=== PATIENT | female | born 1980 | race Caucasian/White ===

== ENCOUNTER 2023-03-02 10:18 | Outpatient (AMB) | payer OTHER, SELFPAY ==
--- NOTE | 2023-03-02 10:20 | A.OFFPC_ITS ---
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 Teletray Operator: Present Accompanied by: Mother Allergies nitroglycerin [NITROGLYCERIN] Allergy (Mild, Verified 03/02/23 10:44) HIVES hydromorphone [Dilaudid] Allergy (Unknown, Verified 03/02/23 10:44) anaphylaxis From DILAUDID Allergy (Severe, Uncoded 12/12/19 15:54) ANAPHYLAXIS dilaudi Allergy (Unknown, Uncoded 11/05/13 00:00) throat swelling nitroglycerine Allergy (Unknown, Uncoded 11/05/13 00:00) hives Medication List - Last Reconciled 03/02/23 by LUISANA Hart aspirin 1 tab PO DAILY bumetanide 2 mg PO DAILY chlorhexidine gluconate 0.12% 15 mL PO BID magnesium oxide 400 mg PO DAILY potassium chloride (Klor-Con) 40 mEq PO DAILY sotalol 80 mg PO BID warfarin mg PO Tobacco use date assessed: 03/02/23 Dental Screening Dental Screen Date: 03/02/23 Did you have a dental visit in the last 12 months?: Yes Did you have a dental problem in the last 6 months where you did not have access to dental care?: No Was dental information given to patient?: Patient has dentist HPI HPI Comments History of Present Illness Details 42-year-old new patient presents today t o establish care. Past medical history significant for transposition of great arteries, congenital heart disease, s/p cardiac surgeries x4. Patient reports after multiple heart surgeries she developed heart failure, cardiac thrombus on long-term an ticoagulation with Coumadin. Patient reports follows with [facility] in [place]. States she is going to have her INR level checked today. Patient has cardiac defibrillator in place. Patient reports frequent hospital admissions due to significant cardiac history. Patient reports currently on heart transplant list with [facility]; Andrez Manrique is patient's talent coordinator. Patient also reports prior to being on heart transplant list she is also followed by Dr. Kahn [facility] Cardiology and sandwich peddler Andrez Ko. Has not had PCP in over 5 years but states she was a previous patient of [facility]. Patient reports she was experiencing chest heaviness last night, states she does not feel it is anything to worry about. Patient states she reported it to Dr. Manrique office and they spoke with her this am and discussed EKG. Patient advised to call office back to ensure they order EKG as this is my 1st time meeting patient and have no previous EKGs to compare too. Patient verbalized understanding and states she will call Dr. Manrique office back to place order.Patient sign a release in office today to obtain medical records. [facility] Medical History (Updated 03/02/23 @ 11:35 by LUISANA Hart) H/O cardiac murmur Cardiac defibrillator in place Congenital heart disease Transposition great arteries Surgical History (Updated 03/02/23 @ 11:28 by LUISANA Hart) S/P lobectomy of lung H/O right breast implant Hx of cholecystectomy H/O heart surgery Social History Housing: Apartment Patient Tobacco Use Status: Never used Tobacco e-Cigarette/Vaping Use: Never Used service: No Current occupational status: unemployed Cognitive needs: No Hearing needs: No Vision needs: Yes Questionnaire PHQ-9 Over the last 2 weeks, how often have you been bothered by any of the following problems? 1. Little interest or pleasure in doing things: not at all 2. Feeling down, depressed, or hopeless: not at all 3. Trouble falling or staying asleep, or sleeping too much: not at all 4. Feeling tired or having little energy: not at all 5. Poor appetite or overeating: not at all 6. Feeling bad about yourself - or that you are a failure or have let yourself or your family down: not at all 7. Trouble concentrating on things, such as reading the newspaper or watching television: not at all 8. Moving or speaking so slowly that other people could have noticed. Or the opposite - being so fidgety or restless that you have been moving around a lot more than usual: not at all 9. Thoughts that you would be better off or of hurting yourself in some way: not at all Total score: 0 26352 - PHQ-9 Billing: Yes Source: Developed by Drs. Wyatt Baeza, Mykel Salinas and colleagues, with an educational cassidy from [employer]. Thrive Questionnaire I am a: Patient What is your living situation today?: I have a steady place to live Within the past 12 months, did the food you bought not last and you didn't have the money to get more?: Never true Within the past 12 months, did you worry whether your food would run out before you got money to buy more?: Never true Do you have trouble paying for medicines?: No Do you have trouble getting transportation to medical appointments?: No Do you have trouble paying your heating and electricity bill?: No Do you have trouble taking care of your child, family member or friend?: No Do you have trouble with day-to-day activities such as bathing, preparing meals, shopping, managing finances, etc.?: No Are you currently unemployed and looking for a job?: No Are you interested in more education?: No Please select the resources that you would like help with: None Currently or been in a relationship where the following occur: no concerns reported AUDIT C Alcohol Use Questionnaire (AUDIT-C) 1. How often do you have a drink containing alcohol?: Never 3. How often do you have six or more drinks on one occasion?: Never Total Score: 0 JOHN-7 AMB Questionnaire JOHN-7 Date JOHN - 7 assessed: 03/02/23 Feeling nervous, anxious, or on edge: 0 = Not at all Not being able to stop or control worryin = Not at all Worrying too much about different things: 0 = Not at all Trouble relaxin = Not at all Being so restless that it is hard to sit still: 0 = Not at all Becoming easily annoyed or irritable: 0 = Not at all Feeling afraid as if something awful might happen: 0 = Not at all Total JOHN-7 score (0-4 normal; 5-9 mild; 10-14 moderate; 15-21 severe): 0 Source: Developed by Drs. Wyatt Baeza, Mykel Salinas and colleagues, with an educational cassidy from [employer]. JOHN-7 Assessment Billing JOHN-7 Assessment Tool: JOHN-7 Assessment 84443 Review of Systems Const Denies chills, Denies fatigue, Denies fever(s) and Denies poor appetite Eyes Denies no additional complaints ENT Reports Normal hearing present Card Denies chest pain, Denies syncope, Denies rapid heart rate and Denies dyspnea Resp Denies cough and Denies dyspnea GI Denies change in stool character, Denies constipation, Denies diarrhea, Denies nausea and Denies vomiting Denies urinary frequency, Denies dysuria and Denies urinary urgency Neuro Reports Normal hearing present, Denies confusion and Denies syncope Psych Denies confusion Endo Denies fatigue Physical exam (Primary Care) Vital Signs: Last Vital Signs Pulse 84 03/02/23 10:22 BP 90/80 03/02/23 10:22 Pulse Ox 99 03/02/23 10:22 Oxygen Delivery Method Room Air 03/02/23 10:22 BMI result Body Mass Index 26.2 Tobacco/Smoking Status: Tobacco use Status Tobacco use date assessed 03/02/23 03/02/23 10:32 Patient Tobacco Use Status Never used Tobacco 03/02/23 10:32 e-Cigarette/Vaping Use Never Used 03/02/23 10:32 PHQ-9: PHQ-9 Score PHQ-9: Total score 0 03/02/23 10:42 Currently or been in a relationship where the following occur: no concerns reported Const General: No confusion Orientation/consciousness: No confusion HENMT Head: Yes normocephalic and Yes atraumatic Eyes Conjunctivae: conjunctivae normal Chest Chest palpation & inspection: normal inspection of the chest Resp Effort & Inspection: normal respiratory effort Auscultation: clear to auscultation bilaterally, no crackles, no rhonchi and no wheezes Cardio Rate: regular rate Rhythm: regular rhythm Heart sounds: Murmur heart sound present GI Inspection: Yes normal to inspection General: Yes no CVA tenderness Back/Spine/Pelvis Back: no CVA tenderness Neuro General: No confusion Cranial nerves: Yes Normal hearing present Extrem General: No edema Assessment and Plan Assessment & Plan (1) Thrombus: Comment: Cardiac Thrombus on Coumadin Code(s): I82.90 - Acute embolism and thrombosis of unspecified vein Plan: Continue on Coumadin. Continue to follow with [facility]in Clinic in [place]. (2) Heart failure: Code(s): I50.9 - Heart failure, unspecified Plan: Continue on Bumex 2 mg daily. Continue to follow with Cardiology team/heart transplant team Plan Follow-up in 3 months for physical exam. Orders: Orders Lipid Panel Today Z13.220 - Encounter for screening for lipoid disorders TSH reflex Free T4 Today Z13.29 - Encounter for screening for other suspected endocrine disorder Complete Blood Count Auto Diff Today Z13.0 - Encounter for screening for diseases of the blood and blood-forming organs and certain disorders involving the immune mechanism Comprehensive [place]. Panel Fast Today I50.9 - Heart failure, unspecified Coding Level of Care Code New Pt Level 4 (04067) Diagnoses Thrombus I82.90 Heart failure I50.9 Additional Codes JOHN-7 Assessment Billing - JOHN-7 Assessment Tool: JOHN-7 Assessment [id number] ([id number])
[2023-03-02 10:22] VITALS: BP 90/80; PULSE 84; O2SAT 99; BMI 26.2
== END 2023-03-02 11:05 | disposition home or self-care (01) ==
PROVIDERS: PCP Nurse Practitioner Family; Visit Provider Nurse Practitioner Family
DX: I82.90 Acute embolism and thrombosis of unspecified vein (principal); I50.9 Heart failure, unspecified
CPT/HCPCS: 99204

== ENCOUNTER 2023-05-17 08:25 | Outpatient (AMB) | payer OTHER, SELFPAY ==
[2023-05-17 08:31] VITALS: BP 90/58; PULSE 60; O2SAT 100; BMI 26.2
--- NOTE | 2023-05-17 08:31 | MHC.PC.OV ---
Vital Signs 05/17/23 08:31 Height 5 ft 2.99 in Weight 67.154 kg BMI 26.2 BP 90/58 L Blood Pressure Location Lt brachial Position Sitting Pulse 60 Pulse Source Pulse Oximeter Pulse Oximetry (%) 100 Oxygen Delivery Method Room Air Intake Visit Reasons: [facility] 03/28 -04/09 Intake Note: Patient is here for hospital discharge follow up. Patient was discharged from [facility] due to heart transplant on 03/28/2023 -04/09/2023. 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 Allergies nitroglycerin [NITROGLYCERIN] Allergy (Mild, Verified 05/17/23 08:32) HIVES hydromorphone [Dilaudid] Allergy (Unknown, Verified 05/17/23 08:32) anaphylaxis From DILAUDID Allergy (Severe, Uncoded 05/17/23 08:32) ANAPHYLAXIS dilaudi Allergy (Unknown, Uncoded 05/17/23 08:32) throat swelling nitroglycerine Allergy (Unknown, Uncoded 05/17/23 08:32) hives Tobacco use date assessed: 05/17/23 Dental Screening Dental Screen Date: 05/17/23 HPI HPI Comments History of Present Illness Details 42F w/ D-loop TGA, subpulmonic and valvular pulmonary stenosis, and subaortic VSD s/p multiple surgical repairs c/b atrial arrhythmias, nonsustained VT, severe LV dysfunction with ICD placement (07/2018) and HFrEF (EF 10%) presents to the office today for hospital discharge follow up. Discharge medications reviewed and reconciled. She was admitted to [facility] due to acute decompensated heart failure with significant volume overload and BNP 2941. She was diuresed with iv bumex and reached euvolemia. She was noted to be hypotensive without evidence of poor perfusion. At baseline SBP in the 80s-90s. Follows with [facility] currently on transplant list (cardiology tranplant surgeron: Dr. Schulz) and was seen as part of Palliative Care Consult. She was discharged on bumex 4mg qd, spironolactone 25mg qd, sotalol 80mg bid, and jardiance 10mg qd as well as 40meq potassium BID due to hypokalemia. Continued on warfarin which she was started on for left ventricular thrombus in 01/2023. She was recommended for cardiac rehab at the discretion of her primary cardiology team, Dr. Kahn at [facility]. Today she reports a chronic solomon, due to end stage heart failure, but reports no worsening from baseline. Has intermittent palpitations but denies any firing of her ICD. Reports palpitations are brief. No chest pain. She does weigh herself daily and retricts both fluids and sodium. She is hoping to get a PLANISHER to assist with ADL's and has had an intake appt. Looking to establish care with new PCP, Dr. Christina, for further assistance with this process and has upcoming appt. INR's are managed by [facility] and last INR was therapeutic at 2.0. She is here today with her sister who also assists patient with care. [facility] Medical History (Updated 05/29/23 @ 11:39 by PRISCILLA Mendez) Left ventricular thrombus H/O cardiac murmur Cardiac defibrillator in place Congenital heart disease Transposition great arteries Surgical History S/P lobectomy of lung H/O right breast implant Hx of cholecystectomy H/O heart surgery Social History Housing: Apartment Patient Tobacco Use Status: Never used Tobacco e-Cigarette/Vaping Use: Never Used service: No Current occupational status: unemployed Cognitive needs: No Hearing needs: No Vision needs: Yes Questionnaire Thrive Questionnaire Date Thrive assessed: 05/17/23 AUDIT C Alcohol Use Questionnaire (AUDIT-C) 1. How often do you have a drink containing alcohol?: Never 3. How often do you have six or more drinks on one occasion?: Never Total Score: 0 JOHN-7 AMB Questionnaire JOHN-7 Date JOHN - 7 assessed: 03/02/23 Source: Developed by Drs. Wyatt Baeza, Yary Celis, Mykel Ryan and colleagues, with an educational cassidy from [employer]. Review of Systems Const All systems reviewed & are unremarkable except as noted in HPI and below Physical exam (Primary Care) Vital Signs: Last Vital Signs Pulse 60 05/17/23 08:31 BP 90/58 L 05/17/23 08:31 Pulse Ox 100 05/17/23 08:31 Oxygen Delivery Method Room Air 05/17/23 08:31 BMI result Body Mass Index 26.2 Tobacco/Smoking Status: Tobacco use Status Tobacco use date assessed 05/17/23 05/17/23 08:36 Patient Tobacco Use Status Never used Tobacco 05/17/23 08:36 e-Cigarette/Vaping Use Never Used 05/17/23 08:36 Thrive Assessment: Date of Thrive Assessment Date Thrive assessed 05/17/23 05/17/23 08:36 Const Other: Constitutional - Awake and Alert, No apparent distress Eyes - PERRLA, EOMI Cardiovascular - S1S2, RRR, mechanical click ausculated, 2+ ble edema Respiratory - Normal lung expansion, Normal respiratory effort, No respiratory distress, CTA bilaterally Extremities - no calf tenderness bilaterally, no swelling Skin - Warm/Dry Neurological - Alert & oriented x3 Psychological - Appropriate affect Results Reviewed Results Reviewed: extensive review of [facility]'s reports including admission note, cardiology discharge summary, [facility]'s consult report, [facility] cardiology report, cxr report, bnp, cbc, bmp Assessment and Plan Assessment & Plan (1) End stage heart failure: Code(s): I50.84 - End stage heart failure Plan: Stable symptomatically, clincially euvolemic on exam. SOLOMON is baseline without acute worsening. Continue alternating bumex 4mg and 6mg every other day. Continue spironolactone 25mg and jardiance 10mg daily. Keep [facility] cardiology appt 05/23 as scheduled and discuss cardiac rehab further. Continue with fluid restrictions no more than 1.2 L per day and sodium restrictions of no more than 2g per day. Keep appt with PCP as scheduled to discuss PLANISHER assistance further s/p intake appt for assistance with ADL's. (2) Left ventricular thrombus: Code(s): I51.3 - Intracardiac thrombosis, not elsewhere classified Plan: Continue coumadin. INR therapeutic at 2.0, continue following with [facility] coumad[facility]. Medications: New chlorhexidine gluconate 0.12% 15 mL PO BID 473 mL 0RF Coding Level of Care Code Tele Est Pt Level 5 (65190) Diagnoses End stage heart failure I50.84 Left ventricular thrombus I51.3 Time Spent (min) 50 Comment time reviewing above, exam with pt/sister, and documentation time
== END 2023-05-17 09:04 | disposition home or self-care (01) ==
PROVIDERS: PCP Nurse Practitioner Family; Visit Provider Physician Assistant
DX: I50.84 End stage heart failure (principal); I51.3 Intracardiac thrombosis, not elsewhere classified
CPT/HCPCS: 99215

== ENCOUNTER 2024-06-13 15:23 | Outpatient (AMB) | payer OTHER, SELFPAY ==
--- NOTE | 2024-06-13 15:25 | MHC.PC.OV ---
Vital Signs 06/13/24 15:38 Height 5 ft 2 in Weight 142 lb 6.698 oz BMI 26.0 BP 130/74 Blood Pressure Location Lt brachial Position Sitting Pulse 93 Pulse Source Pulse Oximeter Pulse Oximetry (%) 97 Oxygen Delivery Method Room Air Intake Visit Reasons: CHANDANA Hicks/ was in hospital for 2 years Intake Note: Patient is here today for CHANDANA from [facility]. Motor Vehicle Emissions Inspector Required: No Irrigation Flume Layer: Present Accompanied by: Sister Allergies nitroglycerin [NITROGLYCERIN] Allergy (Mild, Verified 06/13/24 15:51) HIVES hydromorphone [Dilaudid] Allergy (Unknown, Verified 06/13/24 15:51) anaphylaxis From DILAUDID Allergy (Severe, Uncoded 06/13/24 15:51) ANAPHYLAXIS dilaudi Allergy (Unknown, Uncoded 06/13/24 15:51) throat swelling nitroglycerine Allergy (Unknown, Uncoded 06/13/24 15:51) hives Medication List - Last Reconciled 06/13/24 by Petty Almeida PA-C [id number] 6,000-19,000 -30,000 unit (Creon) caps PO mirtazapine 7.5 mg PO BEDTIME mycophenolate sodium 360 mg PO BID prednisone 5 mg PO DAILY sevelamer carbonate 800 mg PO TID tacrolimus 4 mg PO BID trazodone 25 mg PO BEDTIME PRN Tobacco use date assessed: 06/13/24 Dental Screening Dental Screen Date: 06/13/24 Did you have a dental visit in the last 12 months?: Yes Did you have a dental problem in the last 6 months where you did not have access to dental care?: No Was dental information given to patient?: Patient has dentist HPI CHANDANA Fabiola/ was in hospital for 2 years HPI Details 43-year-old female coming to the office for transfer of care, last seen 04/2023. 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 Patient currently on tacro for immunosuppression and following with [facility]. She was previously on hemodialysis which was discontinued 05/06/2024 to remain on Renvela TID for hyperphosphatemia. She was admitted from 01/2024-02/2024 4 abdominal superinfection requiring 3 IR drains and antibiotics discontinued 03/16/2024. MRCP demonstrated acute interstitial edematous pancreatitis. GI to perform ERCP in 6-8 weeks for resolution of current episode, abdominal drains removed 04/05/2024, pravastatin was held and following with [facility] next appointment 06/19/2024. Patient also had bilateral pleural effusions last drained 04/08/2024 continue with surveillance x-rays next 05/05/2024 and follow up appointment with thoracic 05/23/2024. She reports previous hematoma and infection post-heart transplant that necessitated additional surgeries for bleeding control. The patient experiences amenorrhea, raising concerns about early menopause. She currently manages anxiety and sleep disturbances using mirtazapine intermittently. The patient has experienced bilateral lower extremity edema linked to steroid use, previous dialysis, and kidney disease. Recent renal function showed improvements, and she remains under monitoring. She is currently ambulating with a walker and is working with PT/OT but is due to be discharged from OT soon. She is looking to have FEDERAL MEDIATION COMMISSIONER services in place she does have difficulty with daily tasks due to her prolonged hospitalization. Upcoming appointments: Cardiology/Transplant team 06/20/2024 R heart cath in July Kidney specialist - saw last week 06/03/2024 kidneys have been improving and plan to have blood work done. GI specialist - video visit 06/19/2024 Thoracic team no longer having drains - discharged [facility] Medical History (Updated 06/14/24 @ 08:24 by Petty Almeida PA-C) Bilateral pleural effusion Left ventricular thrombus H/O cardiac murmur Cardiac defibrillator in place Congenital heart disease Transposition great arteries Surgical History (Updated 06/13/24 @ 15:52 by RADHA North) History of heart transplant S/P lobectomy of lung H/O right breast implant Hx of cholecystectomy H/O heart surgery Social History Housing: Apartment Alcohol intake: never Patient Tobacco Use Status: Never used Tobacco e-Cigarette/Vaping Use: Never Used service: No Current occupational status: unemployed Cognitive needs: Yes (walker, wheelchair) Hearing needs: No Vision needs: Yes Questionnaire PHQ-9 Over the last 2 weeks, how often have you been bothered by any of the following problems? 1. Little interest or pleasure in doing things: not at all 2. Feeling down, depressed, or hopeless: not at all 3. Trouble falling or staying asleep, or sleeping too much: not at all 4. Feeling tired or having little energy: not at all 5. Poor appetite or overeating: not at all 6. Feeling bad about yourself - or that you are a failure or have let yourself or your family down: not at all 7. Trouble concentrating on things, such as reading the newspaper or watching television: not at all 8. Moving or speaking so slowly that other people could have noticed. Or the opposite - being so fidgety or restless that you have been moving around a lot more than usual: not at all 9. Thoughts that you would be better off or of hurting yourself in some way: not at all Total score: 0 Depression Screening Interpretation: Negative Depression Screening Done: Yes Source: Developed by Drs. Wyatt Baeza, Yary Celis, Mykel Ryan and colleagues, with an educational cassidy from [email or web address]. Thrive Questionnaire Date Thrive assessed: 06/13/24 I am a: Patient What is your living situation today?: I have a steady place to live Within the past 12 months, did the food you bought not last and you didn't have the money to get more?: Never true Within the past 12 months, did you worry whether your food would run out before you got money to buy more?: Never true Do you have trouble paying for medicines?: No Do you have trouble getting transportation to medical appointments?: No Do you have trouble paying your heating and electricity bill?: No Do you have trouble taking care of your child, family member or friend?: No Do you have trouble with day-to-day activities such as bathing, preparing meals, shopping, managing finances, etc.?: No Are you currently unemployed and looking for a job?: No Are you interested in more education?: No Please select the resources that you would like help with: None Currently or been in a relationship where the following occur: No concerns reported THRIVE Score: 0 AUDIT C Alcohol Use Questionnaire (AUDIT-C) 1. How often do you have a drink containing alcohol?: Never Total Score: 0 JOHN-7 AMB Questionnaire JOHN-7 Date JOHN - 7 assessed: 06/13/24 Feeling nervous, anxious, or on edge: 3 = Nearly every day Not being able to stop or control worryin = Nearly every day Worrying too much about different things: 3 = Nearly every day Trouble relaxin = Several days Being so restless that it is hard to sit still: 0 = Not at all Becoming easily annoyed or irritable: 0 = Not at all Feeling afraid as if something awful might happen: 1 = Several days Total JOHN-7 score (0-4 normal; 5-9 mild; 10-14 moderate; 15-21 severe): 11 Source: Developed by Drs. Wyatt Baeza, Yary Celis, Mykel Ryan and colleagues, with an educational cassidy from [email or web address]. Review of Systems Const Denies body aches, Denies chills, Denies fever(s), Denies headache(s) and Denies poor appetite Eyes Reports no additional complaints ENT Denies dysphagia, Denies dizziness, Denies headache(s) and Denies odynophagia Card Denies chest pain, Denies syncope, Denies edema, Denies irregular heart rhythm, Denies lightheadedness and Denies dyspnea Resp Denies cough and Denies dyspnea GI Denies abdominal pain, Denies constipation, Denies dysphagia, Denies diarrhea, Denies nausea, Denies odynophagia and Denies vomiting Reports no additional complaints Musc Reports no additional complaints and Denies abnormal gait Skin/Breast Reports system reviewed and no additional complaints, except as documented Neuro Denies abnormal gait, Denies dizziness, Denies syncope and Denies headache(s) Psych Reports no additional complaints Physical exam (Primary Care) Vital Signs: Last Vital Signs Pulse 93 06/13/24 15:38 BP 130/74 06/13/24 15:38 Pulse Ox 97 06/13/24 15:38 Oxygen Delivery Method Room Air 06/13/24 15:38 BMI result Body Mass Index 26.0 Tobacco/Smoking Status: Tobacco use Status Tobacco use date assessed 06/13/24 06/13/24 15:36 Patient Tobacco Use Status Never used Tobacco 06/13/24 15:32 e-Cigarette/Vaping Use Never Used 06/13/24 15:32 PHQ-9: PHQ-9 Score PHQ-9: Total score 0 06/14/24 08:12 Depression Screening Interpretation: Negative Thrive Assessment: Date of Thrive Assessment Date Thrive assessed 06/13/24 06/13/24 15:33 Currently or been in a relationship where the following occur: No concerns reported Const General: cooperative, healthy appearing, comfortable and no acute distress Orientation/consciousness: patient oriented x3 HENMT Head: Yes normocephalic Ears: hearing grossly normal bilaterally General nose exam: Normal external nose present Eyes General: appearance normal, both eyes and all related structures Conjunctivae: conjunctivae normal Neck Neck: Yes full ROM and Yes no lymphadenopathy Resp Effort & Inspection: normal respiratory effort Auscultation: clear to auscultation bilaterally, no crackles, no rales, no rhonchi and no wheezes Cardio Rate: regular rate Rhythm: regular rhythm Skin General skin exam: no rashes or lesions noted Neuro General: patient oriented x3 Gait exam (Neuro): Normal gait present Extrem General: Yes normal to inspection, Yes full ROM and No edema Psych Affect: normal affect Attitude: cooperative Insight: Good insight present (Psych) Judgement: Good judgement present (Psych) Coding Level of Care Code Est Pt Level 4 (41341) Diagnoses End stage heart failure I50.84 Anxiety F41.9 Depression F32.A Absent menses N91.2 Chronic kidney disease N18.9 Insomnia G47.00 Lower extremity edema R60.0 Assessment & Plan Assessment & Plan (1) End stage heart failure: Comment: Status post heart transplant 10/2023 Code(s): I50.84 - End stage heart failure Category: Medical Plan: Continue to follow with transplant team. My plan addresses the patient's transplan and associated conditions by ensuring multidisciplinary care coordination with specialists for ongoing assessment and medication management, emphasizing the upkeep of organ function and overall health optimization. Currently on immunosuppression with tacro and prednisone. (2) Anxiety: Code(s): F41.9 - Anxiety disorder, unspecified Category: Medical Plan: Patient currently on mirtazapine as needed for sleep. I recommended using this medication daily for anxiety and depression however did advised patient to reach out to her transplant team to ensure this is acceptable. Per discharge paperwork patient to be on Remeron daily. Referral also placed to counseling. (3) Depression: Code(s): F32.A - Depression, unspecified Category: Medical Plan: Patient currently on mirtazapine as needed for sleep. I recommended using this medication daily for anxiety and depression however did advised patient to reach out to her transplant team to ensure this is acceptable. (4) Absent menses: Code(s): N91.2 - Amenorrhea, unspecified Category: Medical Plan: The chilling hood operator consultation will address possible early menopause. Referral was placed today. (5) Chronic kidney disease: Code(s): N18.9 - Chronic kidney disease, unspecified Category: Medical Plan: Hemodialysis was discontinued 05/06/2024 advised to continue with daily weights and continue to follow with custom feed mill operator helper. Most recent appointment kidney function had improved. (6) Insomnia: Code(s): G47.00 - Insomnia, unspecified Category: Medical Plan: Currently on has a pain as needed. (7) Lower extremity edema: Code(s): R60.0 - Localized edema Category: Medical Plan: Patient complaining of lower extremity edema. On exam today no significant edema noted intact sensation and pulses in bilateral lower extremities. Recommend use of compression stockings, elevation legs and exercise as tolerated. Plan This note was constructed using voice recognition software. While every effort has been made to ensure accuracy and tools programmer, still areas may have been included sometimes these areas may affect the content or meeting of the given symptoms. Total time spent caring for the patient today was 30 minutes. This includes time spent before the visit reviewing the chart, time spent during the visit, and time spent after the visit and documentation. Patient was informed and verbally consented to the use of an ambient scribe for clinic note documentation during this visit. Orders: Referrals Counseling Referral F32.A - Depression, unspecified, F41.9 - Anxiety disorder, unspecified INSURANCE INVESTIGATOR Referral N91.2 - Amenorrhea, unspecified, Z12.4 - Encounter for screening for malignant neoplasm of cervix Medications: New commode As directed 1 ea 0RF
[2024-06-13 15:38] VITALS: BP 130/74; PULSE 93; O2SAT 97; BMI 26.0
--- OUTSIDE RECORDS SUMMARY | 2024-06-13 17:47 | XMS_ITS | Clinical Summary ---
Author Organization [employer] Address [address] [place] [address] Care Team Providers Care Security Flex Utility Officer Name Role Phone Loly Brush MD Primary Care Provider [phone] Allergies Active Allergy Reactions Criticality Noted Date Comments Nitroglycerin 03/15/2022 Active Problems Problem Noted Date Diagnosed Date Acute cough 03/15/2022 Assessment & Plan (03/15/2022 1:39 PM EST): Patient started with symptoms of cough, fever/chills, joint pain about 2 days ago, tested positive for covid, has shortness of breath at baseline due to Hx of chf. Will start on paxlovid risk vs benefit discussed, reviewed medication. In case of worseing symptoms visit ER COVID 03/15/2022 Fever and chills 03/15/2022 Social History Tobacco Use Types Packs/Day Years Used Date Smoking Tobacco: Never Assessed Comments Unknown Sex and Gender Information Value Date Recorded Sex Assigned at Female 01/24/2022 10:18 AM EDT Legal Sex Female 10:18 AM EDT Gender Identity Female 03/15/2022 1:20 PM EST Sexual Orientation Not on file Plan of Treatment Health Maintenance Due Date Last Done Comments Depression Screening 1982 HIV Screening 1982 SDOH Screening 1982 COVID-19 Vaccine (#1) 10/03/1987 Alcohol/Substance Use Screening 1994 Tobacco Screening 1994 Family Planning (PISQ) 1997 Hepatitis C Screening 2000 HPV Vaccines (2 - 3-dose SCDM series) 10/04/2020 09/06/2020 Hepatitis B Vaccines (3 of 3 - 19+ 3-dose series) 04/10/2023 03/16/2024, 02/13/2023, 09/05/2020 Influenza Vaccine (#1) 2023 , 03/18/2018, 03/01/1999, Additional history exists Mammogram 11/03/2024 11/03/2022, 11/03/2022 Cervical Cancer Screening 01/16/2026 HPV/Cotest 01/16/2026 Pap Smear 01/16/2026 01/16/2023 DTaP/Tdap/Td Vaccines (8 - Td or Tdap) 09/05/2030 09/05/2020, 08/04/2010, 11/25/1988, Additional history exists RSV Patients and Patients Aged 60 years or older (1 - 1-dose 75+ series) 2057 HIB Vaccines Completed 11/29/1985 IPV Vaccines Completed 11/25/1988, 0309/1984, 01/31/1983, Additional history exists Zoster Vaccines Completed 02/10/2023, 09/06/2020 Hepatitis A Vaccines Aged Out 02/13/2023, 09/05/19 21 No longer eligible based on patient's age to complete this topic Pneumococcal Vaccine: Pediatrics (0 to 5 Years) and At-Risk Patients (6 to 49) Years) Completed 02/15/2023, 09/04/2020, 09/29/2010 Meningococcal Vaccine Aged Out No veronica jaspal eligible based on patient's age to complete this topic RSV under 20 months Aged Out No longe r eligible based on patient's age to complete this topic Rotavirus Vaccines Aged Out No longer eligible based on patient's age to complete this topic Procedures Procedure Name Priority Date/Time Associated Diagnosis Comments PAP/HPV Routine 01/16/2023 from Last 3 Months or Most Recently Relevant to Health Maintenance Results * Pap Smear (01/16/2023) Pap Negative for intraephithelial lesion or malignancy Negative for intraephithelial lesion or malignancy, Other us Historical Provider HEALTH MAINTENANCE Final Result from Last 3 Months or Most Recently Relevant to Health Maintenance Insurance Care Teams Security Flex Utility Officer Relationship Specialty Start Date End Date Loly Brush MD [address] [place] [id number] PCP - General Family Medicine 03/27/18
== END 2024-06-13 16:22 | disposition home or self-care (01) ==
LOC: HO.HMCH 15:23
DX: I50.84 End stage heart failure (principal); F41.9 Anxiety disorder, unspecified; F32.A Depression, unspecified; N91.2 Amenorrhea, unspecified; N18.9 Chronic kidney disease, unspecified; G47.00 Insomnia, unspecified; R60.0 Localized edema

== ENCOUNTER → 2024-06-13 15:23 | Outpatient (BNVA) | payer OTHER, SELFPAY | DX: I50.84 End stage heart failure (principal); F41.9 Anxiety disorder, unspecified; N91.2 Amenorrhea, unspecified; N18.9 Chronic kidney disease, unspecified; G47.00 Insomnia, unspecified; R60.0 Localized edema | CPT/HCPCS: 99212 ==

== ENCOUNTER 2024-11-18 15:30 | Outpatient (AMB) | payer OTHER, SELFPAY ==
--- OUTSIDE RECORDS SUMMARY | 2024-11-14 10:00 | XMS_ITS | Encounter Summary ---
Author Organization [facility] Address [address] [place] [phone] Phone Care Team Providers Care Inspector Conveyor Line Name Role Phone Andrez Manrique MD Unavailable Andrez Kanh MD Unavailable Luca Alfaro MD Unavailable Andrez Osullivan MD Unavailable Petty Almeida Primary Care Provide r Encounter Details Date Type Department Care Team (Late st Contact Info) Description 11/14/2024 10:00 AM EDT Office Visit [facility] Cardiac Transplant [address] [place] [address] Cornelio Patricia MD [address] [facility] Cardiovascular Dept [place], [place] [id number] [email or web address] 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); Immunosuppression; CKD stage 3b, GFR 30-44 ml/min Social History Tobacco Use Types Packs/Day Years Used Date Smoking Tobacco: Never Smokeless Tobacco: Never Tobacco Cessation:Counseling Given: Not Answered Alcohol Use Standard Drinks/Week Comments Not Currently 0 (1 standard drink = 0.6 oz pur e alcohol) Child or Family Care Answer Date Record ed Do you have problems with on e of the following making it difficult for you to work, study, or receive health care? No 03/09/2024 Education Answer Date Recorded Are you interested in help w ith more adult education (for example, completing high school, GED, job training, learning the [place] language, technical skills, or developing parenting skills)? No 03/09/2024 Are you concerned about learning? Not on file 03/09/2024 No 03/09/2024 Yes 03/09/2024 Food Answer Date Recorded Within the past 6 months we worried whether our food would run out before we got money to buy more. Never True 03/26/2024 Within the past 6 months the food we bought just didn't last and we didn't have enough money to get more. Never True Residential Stability Answer Date Recor ded What is your housing situation today? I have adama sing 03/26/2024 How many times have you move d in the past 12 months? Zero (I did not move) 03/26/2024 Paying for Meds Answer Date Recorded Do you have trouble paying for medicines? Yes 03/26/2024 Paying Utility Bills Answer Date Record ed Do you have trouble paying your heating or elect ricity bill? No 03/26/2024 Transportation Answer Date Recorded Has the lack of transportati on kept you from medical appointments or from getting medications? No 03/09/2024 Unemployment Answer Date Recorded Are you currently unemployed or working on a part-time or temporary basis, and looking for work? No 03/09/2024 Digital Access Answer Date Recorded Yes 03/26/2024 Yes 03/26/2024 Do you have reliable internet access at home? No 03/26/2024 Do you have a device (e.g., phone, tablet, computer) with a working camera? Yes 03/26/2024 Intimate Partner Violence Answer Date R ecorded Are you denied basic needs s uch as food, clothing, or medical care? No 11/15/2024 In the past 12 months have y ou been in a relationship with a person who hurts, threatens, or tries to control you? No 11/15/2024 Are you denied basic needs s uch as food, clothing, or medical care? No 11/15/2024 In the past 12 months have y ou been in a relationship with a person who hurts, threatens, or tries to control you? No 11/15/2024 Comments No Sex and Gender Information Value Date Recorded Sex Assigned at Female 01/13/2022 9:57 AM EDT Legal Sex Female 7:53 PM EST Gender Identity Female 01/13/2022 9:57 AM EDT Sexual Orientation Straight 01/13/2022 9: 57 AM EDT documented as of this encounter Last Filed Vital Signs Vital Sign Reading Time Taken Comments Blood Pressure 112/70 11/14/2024 10:20 AM EDT Pulse 88 11/14/2024 10:20 AM EDT Temperature - - Respiratory Rate - - Oxygen Saturation 100% 11/14/2024 10: 20 AM EDT Inhaled Oxygen Concentration - - Weight 67 kg (147 lb 12.8 oz) 10:20 AM EDT with shoes Height - - Body Mass Index 26.18 06/18/2024 3:12 PM EDT documented in this encounter Progress Notes * Cornelio Patricia MD - 11/14/2024 10:00 AM EDT Images from the original note were not included. Address: [address] [place] [address] [facility] Patient: Fidelina Perry : 1980 I had the pleasure of seeing Fidelina Perry at the [facility] on November 14, 2024 for first annual post-transplant evaluation. In brief, Ms. Perry is a truly remarkable 44-year-old woman with a history of D TGA with end-stage heart failure, high PRA sensitization, bridged with inotropes to heart transplant on November 04, 2023. Posttransplant course was long and complicated by retroperitoneal and abdominal hematomas superinfection requiring drainage, pancreatitis, pancreatic duct leak, mesenteric hematoma and bowel ischemia requiring ex lap, ileus requiring extended TPN, intubation and tracheostomy and pleural drainage as well as acute kidney injury requiring temporary renal replacement therapy and leukopenia requiringG-CSF ultimately all drains were removed, her kidneys recovered and after an extended rehab stay she went home in May 2024. Since that time she has done remarkably well on 3 drug immunosuppressive therapy with only mild to moderate residual chronic kidney disease. She presents today accompanied by her mother in good spirits for her first annual evaluation. Heartcare earlier this month showed a slight increase in AlloSure which has caused the patient some anxiety we will add a right heart cath and biopsy to tomorrow's annual invasive assessment. She is otherwise in good spirits. She notes that she is not taking her aspirin but is certainly willing to take.She notes that she has mild heart pounding when active but never at rest and no intrusive palpitations. She has several questions about seasonal vaccines which we have encouraged. She has recent follow-up with her primary care, work ticket distributor and is seeing her TRANSMISSION MAINTENANCE SUPERVISOR on Monday. Importantly she denies any fevers chills abdominal discomfort weight change or diarrhea. She has had no cough chest pain or shortness of breath. She feels robust and getting stronger month by month. Transplant History: Transplant date: 11/04/2023 (DBD Heart) Rejection History: Date Post-OHT Bx IS 11/09 1 week Deferred 2/2 ATG, critical illness (TTE EF 70%) ATG, Methylpred 28IV, off MMF (pancreatitis and bowel ischemia s/p ex lap) 11/14 2 weeks Deferred (TTE EF 65%) Methylpred 20IV, MMF 500 IV, Tac 0.5 SL 11/22 3 weeks 0R Pred 30D, MMF 1000 IV, tac 3.5BID 11/29 4 weeks 1R, pAMR1 Methylpred 24IV, MMF 1000 IV, tac 1 BID SL 12/13 6 weeks Deferred 2/2 pancreatic leak/GI bleed s/p MRCP, TTE EF 60% Methylpred 16IV, MMF 1000 BID, tac 1/1.5 SL 12/24 8 weeks 1R Methylpred 14IV (Pred 12.5 at DC), Cellcept 1000 IV BID, tac 1/1.5 SL 01/21 3 months 0R Pred 10, Myf 720BID, tac 0.5SL BID 02/26/24 4 months 0R Pred 7.5, Myf 720BID, tac 1BID 04/02/24 5 months 0R Pred 5, Myf 180BID, tac 3SL 05/06/24 6 months 1R Pred 5, Myf 360BID, tac 2.5/3 06/04/24 7 months Allomap 31, Allosure 0.15% Pred 5, Myf 360 BID, Results of 1st annual Allomap/Allosure drawn on 11/01/2024 Allomap 33 ( < 30 for 3-6 months and < 34 for greater than 6 months, low risk for cellular rejection) Allosure 0.32% (>0.20% at higher risk for ACR/AMR) Serologies: CMV: D-/R+ EBV: D+/R+ Toxo: D-/R- Past Medical History: Patient Active Problem List Diagnosis Calculus of gallbladder Nonrheumatic pulmonary valve stenosis VSD (ventricular septal defect) Adult congenital heart disease Atrial flutter Heart transplant candidate Encounter for pre-transplant evaluation for lung transplant Patient is Mormon NSVT (nonsustained ventricular tachycardia) Congenital stenosis of pulmonary valve Ventricular dysfunction Ventricular ectopy Heart failure due to congenital heart disease Heart failure Encounter for palliative care Presence of combination internal cardiac defibrillator (ICD) and pacemaker Congenital malformation of heart, unspecified Acute decompensated heart failure Palpitations Heart transplant recipient Leukocytosis Infected hematoma Bacteremia Review of Systems: As per HPI Medications: Current Outpatient Medications on File Prior to Visit Medication Sig Dispense Refill Last Dispense biotin 5 mg Cap Take 2 capsules (10 mg total) by mouth daily. 60 capsule 11 Unknown (outside pharmacy) mycophenolate sodium (MYFORTIC) [address] tablet Take 1 tablet (360 mg total) by mouth 2 (two) times a day. 90 tablet 6 Unknown (outside pharmacy) pravastatin (PRAVACHOL) 10 MG tablet Take 1 tablet (10 mg total) by mouth daily. 90 tablet 3 Unknown (outside pharmacy) predniSONE (DELTASONE) 5 MG tablet Take 1 tablet (5 mg total) by mouth daily. 90 tablet 2 Unknown (outside pharmacy) tacrolimus (PROGRAF) 5 MG capsule Take 1 capsule (5 mg total) by mouth 2 (two) times a day. 240 capsule 2 Unknown (outside pharmacy) acetaminophen (TYLENOL) 325 mg tablet Take 2 tablets (650 mg total) by mouth every 6 (six) hours asneeded for pain (specific location in comments), fever or headache. (Patient not taking: Reported on 11/14/2024) Unknown (no pharmacy) [DISCONTINUED] aspirin 81 MG EC tablet Take 1 tablet (81 mg total) by mouth daily. (Patient not taking: Reported on 11/14/2024) 90 tablet 3 Unknown (outside pharmacy) No current facility-administered medications on file prior to visit. Allergies: Allergies Allergen Reactions Hydromorphone Anaphylaxis Bronchospasm or Wheezing Other Reaction(s): breathing problems Nitroglycerin Hives Physical Exam: Alert and oriented x 3 no acute distress. Pupils reactive. Oropharynx is moist. Neck is supple without apparent jugular venous distention. Carotids are brisk. Chest clear to auscultation percussion. Heart is regular rate and rhythm with single S1 and 2 no audible murmurs or gallops. Multiple chest wall scars are well-healed. Abdomen is soft and nontender no apparent hernia. Extremities are warm without pitting edema. Neurologically she only has a fine tremor. Labs: Latest Reference Range & Units 11/14/24 13:05 Sodium 136 - 145 mmol/L 139 Potassium 3.4 - 5.1 mmol/L 4.3 Chloride 98 - 107 mmol/L 104 Carbon Dioxide 22 - 31 mmol/L 20 (L) BUN 6 - 23 mg/dL 33 (H) Creatinine 0.50 - 1.20 mg/dL 1.25 (H) eGFR (Creatinine) >59 mL/min/1.73m2 55 (L) Glucose 70 - 100 mg/dL 122 (H) Anion Gap 7 - 17 mmol/L 15 Cystatin C 0.61 - 0.95 mg/L 1.62 (H) eGFR (Cystatin C) >59 mL/min/1.73m2 41 (L) 25 (OH)Vitamin D Total 20 - 50 ng/mL 21 Albumin 3.5 - 5.2 g/dL 4.3 Bilirubin (Total) 0.0 - 1.0 mg/dL 0.3 Calcium 8.8 - 10.7 mg/dL 9.1 Magnesium 1.7 - 2.6 mg/dL 1.7 Total Protein 6.4 - 8.3 g/dL 7.4 AST (SGOT) 10 - 50 U/L 24 ALT (SGPT) (U/L) 10 - 50 U/L 21 Alk Phos 35 - 130 U/L 114 Globulin 2.2 - 4.2 g/dL 3.1 NT-proBNP <450 pg/mL 1,000 (H) Cholesterol <200 mg/dL 181 Chol/HDL Ratio 0.0 - 4.0 2.0 HDL Cholesterol 40 - 80 mg/dL 89 (H) LDL Chol (Calculated) 50 - 129 mg/dL 72 Triglycerides 35 - 150 mg/dL 99 VLDL <31 mg/dL 20 Hgb A1C 4.2 - 5.6 % 4.9 Mean Bld Glucose, calc'd mg/dL 94 PTH, Intact (pg/mL) 15 - 65 pg/mL 145 (H) WBC 4.00 - 11.00 K/uL 9.78 RBC 4.00 - 5.20 M/uL 4.26 Hgb 12.0 - 16.0 g/dL 12.1 HCT 36.0 - 46.0 % 38.1 MCV 80.0 - 100.0 fL 89.4 MCH 27.0 - 31.0 pg 28.4 MCHC 32.0 - 36.0 g/dL 31.8 (L) PLT 150 - 450 K/uL 260 MPV 8.4 - 12.0 fL 9.8 RDW 11.5 - 14.5 % 13.0 Abs Neut Count (ONC) 1.92 - 7.60 K/uL 8.75 (H) Diff Method Auto Neutrophils 48.0 - 76.0 % 89.5 (H) Lymphs 18.0 - 41.0 % 3.7 (L) Monos 4.0 - 11.0 % 5.1 Eos 0.0 - 5.0 % 0.2 Basos (auto) 0.0 - 1.5 % 0.4 Granulocytes, immature (%) 0.0 - 0.9 % 1.1 (H) NRBC% (auto) 0.00 /100 WBCs 0.00 Neutrophil # 1.92 - 7.60 K/uL 8.75 (H) Lymph# 0.72 - 4.10 K/uL 0.36 (L) Walker# 0.16 - 1.10 K/uL 0.50 Eos# 0.00 - 0.50 K/uL 0.02 Baso# 0.00 - 0.15 K/uL 0.04 Granulocytes, immature 0.00 - 0.09 K/uL 0.11 (H) NRBC#, auto 0.00 K/uL 0.00 Bilirubin - UA Negative Negative Blood - UA Negative Negative Clarity - UA Clear Clear Color - UA Yellow LT YELLOW ! Glucose - UA Negative Negative Ketones - UA Negative Negative Leukocyte esterase, ur Negative Negative Nitrites - UA Negative Negative pH - UA 4.5 - 8.0 5.5 Protein - UA Negative Negative Specific [place], ur 1.003 - 1.035 1.018 Urobilinogen - UA Negative Negative Cytomegalovirus (CMV) PCR, blood Rpt (IP) Ginger-Machado virus (EBV) PCR, blood Rpt (IP) (L): Data is abnormally low (H): Data is abnormally high !: Data is abnormal (IP): In Process Rpt: View report in Results Review for more information Results of 1st annual Allomap/Allosure drawn on 11/01/2024 Allomap 33 ( < 30 for 3-6 months and < 34 for greater than 6 months, low risk for cellular rejection) Allosure 0.32% (>0.20% at higher risk for ACR/AMR) 12-lead EK11/14/2024 Normal sinus rhythm at 88 bpm, diaphragmatic Q waves, unchanged from prior tracings on file. Echocardiography 11/14/2024: Left Ventricle The left ventricle is normal in size. The LV internal diameter is 45 mm (normal: M 42-58 mm; F 37-52 mm) at end diastole. There is normal wall thickness. There is normal left ventricular systolic function. The LV ejection fraction is 65% (calculated viabiplane measurement). There are no wall motion abnormalities. Right Ventricle The right ventricle is normal in size. There is normal right ventricular systolic function. Left Atrium The left atrium is dilated consistent with post-transplant state. The left atrial volume index by BSA is 37 mL/m2 (normal: 16-34 mL/m2). Right Atrium The right atrium is normal in size. The IVC is normal in size with normal inspiratory collapse. Aortic Valve The aortic valve is tricuspid with normal leaflets. There is no aortic stenosis. There is no aortic regurgitation. The visualized portions of the thoracic aorta appear normal in size. Mitral Valve There is mild diffuse thickening of both mitral leaflets. There is trace to mild mitral regurgitation. Tricuspid Valve The tricuspid valve appears normal. There is trace tricuspid regurgitation. The RV systolic pressure was calculated at 21 mmHg (using TR peak velocity of 2.0 m/s and assuming an RA pressure of 5 mmHg). Pulmonic Valve There is no obvious structural abnormality. There is trace pulmonic regurgitation. Pericardium There is a pericardial fat pad. There is a trace anterior pericardial effusion. There is no echocardiographic evidence of tamponade. Assessment and Plan: In summary Ms. Prery is a 43-year-old woman with a history of D TGA and end- stage heart failure whois a highly sensitized recipient who eventually had a negative crossmatch and was transplant on November 03, 2024. She had a very complicated posttransplant course for the first 6 months including abdominal bleeding, infection, pancreatitis acute kidney injury and leukopenia and after an extended rehabilitation stay has been home for the last 5+ months. Overall she is doing remarkably well with normal allograft function laboratories notable for mild residual chronic kidney disease consistent withstage III CKD, with associated PTH elevation. She has normal ECG and normal allograft function and a ppears euvolemic well-perfused and normotensive today in clinic. Tomorrow she will present for right catheterization with endomyocardial biopsy as well as coronary angiography as part of her first annual evaluation. Immunosuppression: Continue tacrolimus with a goal of 7-10, Myfortic 360 p.o. twice daily and prednisone 5 mg daily. Given increased heart care will defer prednisone wean and await endomyocardial biopsy results another leukopenia has resolved have a low threshold for augmenting Myfortic back to 720mg twice daily. CAV: prophylaxis she will resume ASA 81mg daily, continues to take Pravastatin, LDL 72 CKD: stage 3: has renal follow up GI: h/o pancreatitis, followed by Dr. Hidalgo Endo: DEXA pending for later today, continue Ca/Vit D Will refer to local cardiac rehabilitation Encouraged seasonable vaccinations Additional recommendations pending invasive assessment tomorrow and EMB results I personally spent a total of 45 minutes on care for this patient on the date of the encounter. This includes [id number] time during the visit as well as non ckgv-dd-wudo time spent on chart review, documentation, and care coordination. Cornelio Patricia MD documented in this encounter Plan of Treatment Upcoming Encounters Date Type Department Care Team (Late st Contact Info) Description 11/28/2024 10:[address] [facility] Skeletal Health/Osteoporosis Ctr. and Bone Density Unit [address] [place] [address] Renetta Rosenbaum, SECURITY SHIFT SUPERVISOR [address] [place] [address] [email or web address] 12/09/2024 8:00 AM EDT Office Visit [facility] Cardiac Transplant [address] [place] [address] Cornelio Patricia MD [address] [facility] [place] [address] [email or web address] 12/09/2024 9:00 AM EDT Office Visit [facility] Cardiac Transplant [address] [place] [address] Unknown, MD Natalie 01/27/2025 4:40 PM EST Office Visit [facility] [address] [phone] [place] [address] Jose Hidalgo MD, MPH [address] [place] [phone] [email or web address] documented as of this encounter Procedures Procedure Name Priority Date/Time Associated Diagnosis Comments ECG 12-LEAD Routine 11/14/2024 10:17 AM EDT documented in this encounter Results * ECG 12-LEAD (11/14/2024 10:17 AM EDT) Ventricular Rate EKG/MIN 88 BPM [facility] Atrial Rate 88 BPM [facility] AK Interval 146 ms [facility] QRS Duration 72 ms [facility] QT Interval 368 ms [facility] QTC Interval 445 ms [facility] P Thayer 60 degrees [facility] R Wave Thayer -3 degrees [facility] T Wave Thayer 26 degrees [facility] 11/14/2024 10:1 7 AM EDT Narrative [facility] - 11/18/2024 9:23 AM EDT Normal sinus rhythm Possible Inferior myocardial infarction (cited on or before 14-Feb-2023) Abnormal ECG When compared with ECG of 22-Aug-2024 08:42, No significant change was found us Cornelio Patricia MD ECG ORDERABLES Final Resul t [facility] documented in this encounter Visit Diagnoses Diagnosis 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- Primary Immunosuppression CKD stage 3b, GFR 30-44 ml/min 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 Assessment Noted Time PHQ-2 Depression Total Score: 0 02/24/20 22 4:08 PM EST documented as of this encounter Care Teams Inspector Conveyor Line Relationship Specialty Start Date End Date Petty Almeida PA [address] [place] [id number] PCP - General Physician Welcome Hostess 07/29/24 Andrez Manrique MD [address] [place] [address] [place] [address] [email or web address] [facility] Trans[facility] Cardiology 08/31/22 Andrez Kahn MD [address] [place] [phone] [email or web address] Consulting Provider Cardiology 08/31/22 Luca Alfaro MD [address] [place] [phone] [email or web address] Pediatric Cardiology 08/31/22 Andrez Osullivan MD [address] [place] [phone] [email or web address] Pediatric Cardiology 02/05/24 documented as of this encounter Additional Source Comments The information contained in this document represents components of the legal health record. It is not the complete legal health record.[facility]
--- OUTSIDE RECORDS SUMMARY | 2024-11-14 11:00 | XMS_ITS | Encounter Summary ---
Author Organization [facility] Address [address] [facility] [address] [place] [address] Phone Care Team Providers Care General Operator Name Role Phone Andrez Manrique MD Unavailable [phone] Andrez Kahn MD Unavailable [phone] Luca Alfaro MD Unavailable [phone] Andrez Osullivan MD Unavailable [phone] Petty Almeida Primary Care Provide r Reason for Referral * Outpatient Procedure - New Request Specialty Diagnoses / Procedures Referred By Jimmy fitzpatrick Referred To Contact Diagnoses Heart transplant status Procedures Adult Echo TTE Renetta Rosenbaum CNP [address] [place] [address] Phone: tel: fax: mailto:[email or web address] Referral ID Status Reason Start Date Expiration Date V isits Requested Visits Authorized [id number] New Request 08/30/2024 1 1 Reason for Visit * Outpatient Procedure - New Request Specialty Diagnoses / Procedures Referred By Jimmy fitzpatrick Referred To Contact Diagnoses Heart transplant status Procedures Adult Echo TTE Renetta Rosenbaum CNP [address] [place] [address] Phone: tel: fax: mailto:[email or web address] Referral ID Status Reason Start Date Expiration Date V isits Requested Visits Authorized [id number] New Request 08/30/2024 1 1 Encounter Details Date Type Department Care Team (Latest Contact Info) Description 11/14/2024 11:00 AM EDT - 11/14/2024 12:52 PM EDT Hospital Encounter [facility] Echocardiography [address] [place] [address] Renetta Rosenbaum, MARVIN [address] [place] [address] [email or web address] Nicolle Degroot [address] [place] [address] [email or web address] Arrived Discharge Disposition: Home or Self Care Social History Tobacco Use Types Packs/Day Years Used Date Smoking Tobacco: Never Smokeless Tobacco: Never Alcohol Use Standard Drinks/Week Comments Not Currently [...] high school, GED, job training, learning the [place] language, technical skills, or developing parenting skills)? [...] AM EDT documented as of this encounter Medications at Time of Discharge acetaminophen (TYLENOL) 325 mg tabletIndication s:RJ (acute kidney injury) Take 2 tablets (650 mg total) by mouth every 6 (six) hours as needed for pain (specific location in comments), fever or headache. 05/23/2024 biotin 5 mg Cap Take 2 capsules (10 mg total) by mouth daily. 60 capsule 11 07/30/2024 pravastatin (PRAVACHOL) 10 MG tabletIndication s:Heart transplant status,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 Take 1 tablet (10 mg total) by mouth daily. 90 tablet 3 06/04/2024 predniSONE (DELTASONE) 5 MG tabletIndication s:Heart transplant status,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 Take 1 tablet (5 mg total) by mouth daily. 90 tablet 2 06/04/2024 tacrolimus (PROGRAF) 5 MG capsuleIndicatio ns:Heart transplant status Take 1 capsule (5 mg total) by mouth 2 (two) times a day. 240 capsule 2 06/21/2024 mycophenolate sodium (MYFORTIC) [address] tabletIndication s:Heart transplant status,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 Take 1 tablet (360 mg total) by mouth 2 (two) times a day. 90 tablet 6 06/04/2024 11/18/2024 documented as of this encounter Plan of Treatment Upcoming Encounters Date Type Department Care Team (Late st Contact Info) Description 11/28/2024 10:20 AM EDT Appointment [facility] [address] [place] [address] Renetta Rosenbaum, DRAIN TILE MACHINE OPERATOR [address] [place] [address] [email or web address] 12/09/2024 8:00 AM EDT Office Visit [facility] Cardiac Transplant [address] [place] [address] Cornelio Dunham MD [address] [facility] [place] [address] [email or web address] 12/09/2024 9:00 AM EDT Office Visit [facility] Cardiac Transplant [address] [place] [address] Natalie, MD Natalie 01/27/2025 4:40 PM EST Office Visit [facility]ties [address] [facility] [place] [address] Jose Hidalgo MD, MPH [address] [facility] [place] [address] [email or web address] documented as of this encounter Procedures Procedure Name Priority Date/Time Associated Diagnosis Comments TTE COMPREHENSIVE Routine 11/14/2024 11: 37 AM EDT Heart transplant status documented in this encounter Results * TTE COMPREHENSIVE (11/14/2024 11:37 AM EDT) Left Ventricle Internal Diameter End Diastole 45 37 - 52 mm Interventricular Septum Thickness 9 6 - 11 mm Height 160 cm Left Ventricle Internal Diameter End Systole 28 <35 mm Left Ventricular Posterior Wall Thickness 10 6 - 11 mm Weight 67 kg Raw LV EF% 61 % Left Atrium Dimension Anterior-Posterior 48 15 - 40 mm Body Surface Area 1.70 m2 Right Ventricle Peak Systolic Pressure 21 mmHg Systolic BP 112 mmHg Diastolic BP 70 mmHg Mitral Valve Area Pressure Half Time Eq 3.4 cm2 Left Ventricle Ea Lateral Wave Speed 20.1 cm/s Right Ventricle TAPSE 14 >=17 mm MV E/E' Tissue Velocity Lateral 4.94 Right Ventricle Pulse Doppler S Wave 12.4 >=9.5 cm/s Relative Wall Thickness 0.44 0.22 - 0.42 Left Ventricle indexed to BSA 84.1 g/m2 Left Ventricle E Wave Speed 99.2 cm/s Left Ventricle A Wave Speed 49.7 cm/s MV E/A ratio 2.0 Left Ventricle Ea Septal Wave Speed 10.1 cm/s MV E/e' septal 9.82 Left Ventricle E/e' Average 7.4 Mitral Valve Deceleration Time 226 ms Inferior Vena Cava Diameter 12 <21 mm Mitral Valve Pressure Half Time 65 ms Tricuspid Valve Prosthetic Peak Gradient 16 mmHg Tricuspid Valve Peak Gradient 16 mmHg Tricuspid Valve Peak Velocity 2.0 m/s Right Atrium Pressure Estimated 5 mmHg Right Ventricle to Right Atrium Pressure Gradient 16 mmHg Right Ventricle Peak Systolic Pressure (Assuming RAP 10) 26 mmHg MGB CV ECHO TV RVSP (ASSUMING RAP OF 5) 21 mmHg RVSP (Exclusive of RAP) 16 mmHg Echo E/Ea 9.82 TR pk grad 2.0 mmHg Right Ventricle Estimated PA Pressure 26.36 mmHg Aortic Sinus Diameter 27 <40 mm Left Atrial Volume Index 37 16 - 34 mL/m2 Ejection Fraction 65 50 - 75 % GLS 19.3 % Left Atrial Volume 63 mL Left Atrial Volume Index by Height 39 mL/m Right Atrium Dimension Superior-Inferior 41 mm Right Atrium Index Superior-Inferior 24 19 - 30 mm/m2 Right Atrium Dimension Medial-Lateral 35 mm Right Atrium Dimension Medial-Lateral 21 13 - 25 mm/m2 Aortic Valve Sinus Index by BSA 16 mm/m2 Aorta Sinus Index by Height 1.69 cm/m Aorta Sinus CSA index by Height 3.58 cm2/m Aortic Sinus Index 16 mm Aortic Valve Sinus Index 1 16 19 - 27 mm Right Atrium Dimension Medial-Lateral 21 mm/m2 Right Atrium Index Superior-Inferior 24 mm/m2 Anatomical Region Laterality Modality Heart [facility] Narrative 11/14/2024 2:09 PM EDT Left Ventricle The left ventricle is normal in size. The LV internal diameter is 45 mm (normal: M 42-58 mm; F 37-52 mm) at end diastole. There is normal wall thickness. There is normal left ventricular systolic function. The LV ejection fraction is 65% (calculated via biplane measurement). There are no wall motion abnormalities. [...] normal in size with normal inspiratory collapse. Mitral Valve There is mild diffuse thickening of both mitral leaflets. There is trace to mild mitral regurgitation. Tricuspid Valve The tricuspid valve appears normal. There is trace tricuspid regurgitation. The RV systolic pressure was calculated at 21 mmHg (using TR peak velocity of 2.0 m/s and assuming an RA pressure of 5 mmHg). Aortic Valve The aortic valve is tricuspid with normal leaflets. There is no aortic stenosis. There is no aortic regurgitation. The visualized portions of the thoracic aorta appear normal in size. Pulmonic Valve There is no obvious structural abnormality. There is trace pulmonic regurgitation. Pericardium There is a pericardial fat pad. There is a trace anterior pericardial effusion. There is no echocardiographic evidence of tamponade. General Findings The image quality was fair (3). The predominant rhythm during the study was sinus. Comparison Findings Compared to prior TTE (direct image comparison) on 05/06/2024, there are no important changes. 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 Consulting Provider Cardiology 08/31/22 Luca Alfaro MD [address] [place] [address] [email or web address] Pediatric Cardiology 08/31/22 Andrez Osullivan MD [address] [place] [id number] [email or web address] Pediatric Cardiology 02/05/24 documented as of this encounter Additional Source Comments The information contained in this document represents components of the legal health record. It is not the complete legal health record.[facility]
--- OUTSIDE RECORDS SUMMARY | 2024-11-14 12:53 | XMS_ITS | Encounter Summary ---
Author Organization [facility] Address [address] [facility] [address] [place] [address] Phone Care Team Providers Care Area Field Worker Name Role Phone Andrez Manrique MD Unavailable Andrez Kahn MD Unavailable Luca Alfaro MD Unavailable Andrez Osullivan MD Unavailable [phone] Petty Almeida Primary Care Provide r Encounter Details Date Type Department Care Team (Latest Contact Info) Description 11/14/2024 12:53 PM EDT - 11/14/2024 11:59 PM EDT Hospital Encounter [facility] Phlebotomy [address] [place] [address] Renetta Rosenbaum, SUPERVISOR [employer] [address] [place] [address] [email or web address] Discharge Disposition: Home or Self Care Social [...] high school, GED, job training, learning the Maltese language, technical skills, or developing parenting skills)? [...] is your housing situation today? I have adaam dasilva 03/26/2024 How many times have you move [...] location in comments), fever or headache. 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 90 tablet 3 11/14/2024 biotin 5 mg Cap Take 2 capsules [...] Info) Description 11/28/2024 10:20 AM EDT Appointment [facility] Skeletal Health/Osteoporosis Ctr. and Bone Density Unit [address] [place] [address] Renetta Rosenbaum, SUPERVISOR [employer] [address] [place] [address] [email or web address] 12/09/2024 8:00 AM EDT Office Visit [facility] Cardiac Transplant [address] [place] [address] Cornelio Patricia MD [address] [facility] [place] [address] [email or web address] 12/09/2024 9:00 AM EDT Office Visit [facility] Cardiac Transplant [address] [place] [address] Natalie, MD Natalie 01/27/2025 4:40 PM EST Office Visit [address] [place] [address] Jose Hidalgo MD, MPH [address] [place] [id number] [email or web address] documented as of this encounter Procedures Procedure Name Priority Date/Time Associated Diagnosis Comments HLA CLASS 2 SINGLE AG ANTIBODY ID (3000) Routine 11/14/2024 1:05 PM EDT 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 HLA CLASS 1 SINGLE AG ANTIBODY ID (3000) Routine 11/14/2024 1:05 PM EDT 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 CYSTATIN C Routine 11/14/2024 1:05 PM EDT 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 NICOTINE AND METABOLITES, RANDOM URINE Routine 11/14/2024 1:05 PM EDT 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 COMPREHENSIVE METABOLIC PANEL Routine 11/14/2024 1:05 PM EDT 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 TACROLIMUS LEVEL Routine 11/14/2024 1:05 PM EDT 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 MICROALBUMIN/CREATININE RATIO, RANDOM URINE Routine 11/14/2024 1:05 PM EDT Heart transplant recipient TOXICOLOGY SCREEN, URINE Routine 11/14/2024 1:05 PM EDT 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 Ginger-Machado virus (EBV) PCR, blood Routine 11/14/2024 1:05 PM EDT 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 Cytomegalovirus (CMV) PCR, blood Routine 11/14/2024 1:05 PM EDT 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 25-OH VITAMIN D Routine 11/14/2024 1:05 PM EDT Vitamin D deficiency, unspecified URINALYSIS Routine 11/14/2024 1:05 PM EDT 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 CBC AND DIFFERENTIAL Routine 11/14/2024 1:05 PM EDT 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 PARATHYROID HORMONE (PTH) Routine 11/14/2024 1:05 PM EDT 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 CONTACT TRANSPLANT TEAM OR PHARMACY WITH ANY QUESTIONS. THIS TEST AND ITS PERFORMANCE CHARACTERISTICS WERE DETERMINED BY THE CLINICAL CHEMISTRY LAB, [facility]. IT HAS NOT BEEN CLEARED OR APPROVED BY THE U.S. FDA, WHICH HAS DETERMINED THAT SUCH CLEARANCE OR APPROVAL IS NOT NECESSARY. 11/14/2024 1:05 PM EDT 11/14/2024 2:13 PM EDT Renetta Rosenbaum SUPERVISOR [employer] LAB BLOOD ORDERABLES Fi nal Result Performing Organization Address [facility] Co de Phone Number [facility] [address] [place] [address] * (ABNORMAL) Urinalysis (11/14/2024 1:05 PM EDT) COLOR LT YELLOW(A) Yellow [facility] CLARITY Clear Clear [facility] GLUCOSE Negative Negative [facility] BILI Negative Negative [facility] KETONES Negative Negative [facility] SPECIFIC GRAVITY 1.018 1.003 - 1.035 [facility] BLOOD Negative Negative [facility] PH 5.5 4.5 - 8.0 [facility] Protein-UA Negative Negative [facility] UROBILINOGEN Negative Negative [facility] NITRITE Negative Negative [facility] Leukocyte esterase, ur Negative Negative [facility] Urine 11/14/2024 1:05 PM EDT 11/14/2024 2:11 PM EDT Cornelio Patricia MD URINE ORDERABLES Final Resu lt Performing Organization Address [facility] Co de Phone Number [facility] [address] [place] [address] * Toxicology screen, urine (11/14/2024 1:05 PM EDT) URINE AMPHETAMINES G HARSHAD WAS NOTIFIED, SAMPLE CONTAMINATED Negative [facility] URINE BENZODIAZEPINE G HARSHAD WAS NOTIFIED, SAMPLE CONTAMINATED Negative [facility] URINE COCAINE METAB G HARSHAD WAS NOTIFIED, SAMPLE CONTAMINATED Negative [facility] URINE OPIATES G HARSHAD WAS NOTIFIED, SAMPLE CONTAMINATED Negative [facility] URINE OXYCODONE G HARSHAD WAS NOTIFIED, SAMPLE CONTAMINATED Negative [facility] Fentanyl, urine G HARSHAD WAS NOTIFIED, SAMPLE CONTAMINATED Negative [facility] CREAT G HARSHAD WAS NOTIFIED, SAMPLE CONTAMINATED 20.0 - 300.0 mg/dL [facility] Urine 11/14/2024 1:05 PM EDT 11/14/2024 2:11 PM EDT us Cornelio Patricia MD URINE ORDERABLES Final Resu lt Performing Organization Address [facility] Co de Phone Number [facility] [address] [place] [phone] * (ABNORMAL) Parathyroid hormone (PTH) (11/14/2024 1:05 PM EDT) PARATHYROID HORMONE 145(H) 15 - 65 pg/mL [facility] 11/14/2024 1:05 PM EDT 11/14/2024 2:11 PM EDT us Cornelio Patricia MD LAB BLOOD ORDERABLES Final Result Performing Organization Address [facility] de Phone Number [facility] [address] [place] [phone] * (ABNORMAL) NT-proBNP (11/14/2024 1:05 PM EDT) NT-PROBNP 1,000(H) <450 pg/mL [facility] Comment: 11/14/2024 1:05 PM EDT 11/14/2024 2:11 PM EDT us Cornelio Patricia MD LAB BLOOD ORDERABLES Final Result Performing Organization Address [facility] Phone Number [facility] [address] [place] [phone] * Nicotine and metabolites, random urine (11/14/2024 1:05 PM EDT) UR NICOTINE Tori PATRICIA WAS NOTIFIED, SAMPLE CONTAMINATED ng/mL [facility] UR COTININE Tori PATRICIA WAS NOTIFIED, SAMPLE CONTAMINATED ng/mL [facility] UR NORNICOTINE Tori PATRICIA WAS NOTIFIED, SAMPLE CONTAMINATED ng/mL [facility] UR ANABASINE Tori PATRICIA WAS NOTIFIED, SAMPLE CONTAMINATED ng/mL [facility] Urine 11/14/2024 1:05 PM EDT 11/14/2024 2:11 PM EDT us Cornelio Patricia MD URINE ORDERABLES Final Resu lt Performing Organization Address [facility] Co de Phone Number [facility] [address] [place] [phone] * Magnesium (11/14/2024 1:05 PM EDT) MAGNESIUM 1.7 1.7 - 2.6 mg/dL [facility] 11/14/2024 1:05 PM EDT 11/14/2024 2:11 PM EDT Cornelio Patricia MD LAB BLOOD ORDERABLES Final Result Performing Organization Address [facility] de Phone Number [address] [address] * (ABNORMAL) Lipid panel (11/14/2024 1:05 PM EDT) CHOLESTEROL 181 <200 mg/dL [facility] TRIGLYCERIDES 99 35 - 150 mg/dL [facility] HDL 89(H) 40 - 80 mg/dL [facility] CALCULATED LDL 72 50 - 129 mg/dL [facility] VLDL 20 <31 mg/dL [facility] CARDIAC RISK RATIO 2.0 0.0 - 4.0 [facility] 11/14/2024 1:05 PM EDT 11/14/2024 2:11 PM EDT Result [facility] Cornelio Patricia MD LAB BLOOD ORDERABLES Final Result Performing Organization Address [facility] de Phone Number [address] [address] * Hemoglobin A1c (11/14/2024 1:05 PM EDT) HEMOGLOBIN A1C 4.9 4.2 - 5.6 % [facility] Comment: HbA1c levels 5.7-6.4% represent pre-diabetes, indicating impaired glucose control and an increased risk of developing diabetes. The diagnostic HbA1c level for diabetes is 6.5% or greater. HbA1c is performed by the Garry Ayah-quant immunoassay method which does not detect (incidental) hemoglobin variants. Hemoglobin electrophoresis should be ordered in patients with suspected hemoglobinopathies. CALC MEAN BLD GLUC 94 mg/dL [facility] Comment:The Calculated Mean Blood Glucose (CMBG) represents the estimated average glucose calculated from the measured hemoglobin A1c (HbA1c). There is no established normal range for the CMBG, however a 5.6% HbA1c (upper limit of normal) represents a CMBG of 114 mg/dL. 11/14/2024 1:05 PM EDT 11/14/2024 2:11 PM EDT us Cornelio Patricia MD LAB BLOOD ORDERABLES Final Result Performing Organization Address [facility] de Phone Number [facility] [address] [place] [phone] * (ABNORMAL) Cystatin C (11/14/2024 1:05 PM EDT) Pathologist [facility] Cystatin C 1.62(H) 0.61 - 0.95 mg/L [facility] eGFR (Cystatin C) 41(L) >59 mL/min/1. 73m2 [facility] Comment: Cystatin C-based eGFR may differ substantially from creatinine-based eGFR in patients with abnormal muscle mass or acutely changing renal function. Please interpret together with relevant clinical features. 11/14/2024 1:05 PM EDT 11/14/2024 2:11 PM EDT us Cornelio Patricia MD LAB BLOOD ORDERABLES Final Result Performing Organization Address [facility] de Phone Number [facility] [address] [address] * (ABNORMAL) Comprehensive metabolic panel (11/14/2024 1:05 PM EDT) SODIUM 139 136 - 145 mmol/L [facility] POTASSIUM 4.3 3.4 - 5.1 mmol/L [facility] CHLORIDE 104 98 - 107 mmol/L [facility] CO2 20(L) 22 - 31 mmol/L [facility] BUN 33(H) 6 - 23 mg/dL [facility] CREATININE 1.25(H) 0.50 - 1.20 mg/dL [facility] GLUCOSE 122(H) 70 - 100 mg/dL [facility] ALBUMIN 4.3 3.5 - 5.2 g/dL [facility] TOTAL PROTEIN 7.4 6.4 - 8.3 g/dL [facility] CALCIUM 9.1 8.8 - 10.7 mg/dL [facility] ALKALINE PHOSPHATASE 114 35 - 130 U/L [facility] TOTAL BILIRUBIN 0.3 0.0 - 1.0 mg/dL [facility] AST 24 10 - 50 U/L [facility] ALT 21 10 - 50 U/L [facility] GLOBULIN 3.1 2.2 - 4.2 g/dL [facility] EGFR 55(L) >59 mL/min/1. 73m2 [facility] Comment:Estimated glomerular filtration rate calculated using the CKD-EPI refit equation. ANION GAP 15 7 - 17 mmol/L [facility] 11/14/2024 1:05 PM EDT 11/14/2024 2:11 PM EDT Cornelio Patricia MD LAB BLOOD ORDERABLES Final Result Performing Organization Address [facility] de Phone Number [facility] [address] [place] [phone] * 25-OH vitamin D (11/14/2024 1:05 PM EDT) 25 OH VIT D (TOTAL) 21 20 - 50 ng/mL [facility] 11/14/2024 1:05 PM EDT 11/14/2024 2:11 PM EDT Cornelio Patricia MD LAB BLOOD ORDERABLES Final Result Performing Organization Address [facility] de Phone Number [address] [address] * (ABNORMAL) CBC and differential (11/14/2024 1:05 PM EDT) WBC 9.78 4.00 - 11.00 K/uL [facility] RBC 4.26 4.00 - 5.20 M/uL [facility] HGB 12.1 12.0 - 16.0 g/dL [facility] HCT 38.1 36.0 - 46.0 % [facility] PLT 260 150 - 450 K/uL [facility] MCV 89.4 80.0 - 100.0 fL [facility] MCH 28.4 27.0 - 31.0 pg [facility] MCHC 31.8(L) 32.0 - 36.0 g/dL [facility] RDW 13.0 11.5 - 14.5 % [facility] MPV 9.8 8.4 - 12.0 fL [facility] NRBC 0.00 0.00 /100 WBCs [facility] ABSOLUTE NRBC 0.00 0.00 K/uL [facility] DIFF METHOD Auto [facility] NEUTS 89.5(H) 48.0 - 76.0 % [facility] LYMPHS 3.7(L) 18.0 - 41.0 % [facility] MONOS 5.1 4.0 - 11.0 % [facility] EOS 0.2 0.0 - 5.0 % [facility] BASOS 0.4 0.0 - 1.5 % [facility] % IMMATURE GRANS 1.1(H) 0.0 - 0.9 % [facility] ABSOLUTE NEUTS 8.75(H) 1.92 - 7.60 K/uL [facility] Comment:1.21-5.39 cells/KL i s the reference range for individuals with the Oconnell null phenotype ABSOLUTE LYMPHS 0.36(L) 0.72 - 4.10 K/uL [facility] ABSOLUTE MONOS 0.50 0.16 - 1.10 K/uL [facility] ABSOLUTE EOS 0.02 0.00 - 0.50 K/uL [facility] ABSOLUTE BASOS 0.04 0.00 - 0.15 K/uL [facility] ABS IMMATURE GRANS 0.11(H) 0.00 - 0.09 K/uL [facility] ABSOLUTE NEUTROPHIL COUNT 8.75(H) 1.92 - 7.60 K/uL [facility] Comment: Automated cell count. Manual ANC may differ if performed. 1.21-5.39 cells/KL is the reference range for individuals with the Oconnell null phenotype Blood 11/14/2024 1:05 PM EDT 11/14/2024 2:11 PM EDT us Cornelio Patricia MD LAB BLOOD ORDERABLES Final Result Performing Organization Address [facility]/ZIP Co de Phone Number [address] [address] * HLA Class 2 Single Ag Antibody ID (3000) (11/14/2024 1:05 PM EDT) [id number] Ab ID 3000 SEE TISSUE TYPING RPT IN EPIC UNDER CHART REVIEW-LAB [facility] 11/14/2024 1:05 PM EDT 11/14/2024 2:12 PM EDT us Cornelio Patricia MD LAB BLOOD ORDERABLES Final Result Performing Organization Address [facility] de Phone Number [address] [address] * HLA Class 1 Single Ag Antibody ID (3000) (11/14/2024 1:05 PM EDT) [id number] Ab ID [id number] SEE TISSUE TYPING RPT IN [facility] UNDER CHART REVIEW-LAB [facility] 11/14/2024 1:05 PM EDT 11/14/2024 2:12 PM EDT us Cornelio Patricia MD LAB BLOOD ORDERABLES Final Result Performing Organization Address [facility] de Phone Number [address] [address] * Cytomegalovirus (CMV) PCR, blood (11/14/2024 1:05 PM EDT) CMV VIRAL LOAD TARGET NOT DETECTED TARGET NOT DETECTED IU/mL [facility] CMV Viral Load Log 10 TARGET NOT DETECTED TARGET NOT DETECTED log IU/mL [facility] Comment: NO VIRAL DNA DETECTED ASSAY RANGE: 35-10,000,000 IU/mL (1.54 log - 7 log IU/mL) Blood 11/14/2024 1:05 PM EDT 11/14/2024 5:34 PM EDT us Renetta Rosenbaum [employer]PER[employer] NON CULTURE MICROBIOLOG Y Final Result Performing Organization Address [facility]/ZIP Co de Phone Number [address] [place] [address] * Ginger-Machado virus (EBV) PCR, blood (11/14/2024 1:05 PM EDT) Pathologist [facility] EBV Blood, PCR Undetected Undetected IU/mL [facility] Comment: (NOTE) Result in log IU/mL is Undetected. ADDITIONAL INFORMATION The quantification range of this assay is 35 to 100,000,000 IU/mL (1.54 log to 8.00 log IU/mL). Testing was performed using the dillon EBV test ([employer] Blood 11/14/2024 1:05 PM EDT 11/14/2024 2:13 PM EDT Cornelio Patricia MD NON CULTURE MICROBIOLOGY Fi nal Result Performing Organization Address [facility] Co de Phone Number [facility] [address] [place] [address] * Microalbumin/creatinine ratio, random urine (11/14/2024 1:05 PM EDT) Pathologist [facility] UR CREATININE G HARSHAD WAS NOTIFIED, SAMPLE CONTAMINATED mg/dL [facility] MALB/CRE G HARSHAD WAS NOTIFIED, SAMPLE CONTAMINATED 0.0 - 30.0 mg/Alb/g Cre [facility] URINE MICROALBUMIN G HARSHAD WAS NOTIFIED, SAMPLE CONTAMINATED 0.0 - 2.0 mg/dL [facility] Urine 11/14/2024 1:05 PM EDT 11/14/2024 2:11 PM EDT Cornelio Patricia MD URINE ORDERABLES Final Resu lt Performing Organization Address [facility] Co de Phone Number [facility] [address] [place] [address] documented in this encounter Visit Diagnoses Diagnosis 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 Vitamin D deficiency, unspecified CKD (chronic kidney disease) stage 2, GFR 60-89 ml/min Chronic kidney disease, Stage II (mild) 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 Assessment Noted Time PHQ-2 Depression Total Score: 0 02/24/20 22 4:08 PM EST documented as of this encounter Care Teams Area Field Worker Relationship Specialty Start Date End Date Petty Almeida PA [address] [place] [address] [address] PCP - General Physician Stoker Erector [employer] Servicer 07/29/24 Andrez Manrique MD [address] [place] [phone] [email or web address] Heart Failure and Transplant Cardiology 08/31/22 Andrez Kahn MD [address] [place] [phone] [email or web address] Consulting Provider Cardiology 08/31/22 Luca Alfaro MD [address] [place] [phone] [email or web address] Pediatric Cardiology 08/31/22 Andrez Osullivan MD [address] [place] [phone] [email or web address] Pediatric Cardiology 02/05/24 documented as of this encounter Additional Source Comments The information contained in this document represents components of the legal health record. It is not the complete legal health record.[facility]
--- OUTSIDE RECORDS SUMMARY | 2024-11-15 09:22 | XMS_ITS | Encounter Summary ---
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 S/P HEART TRANSPALNT Procedures IN RIGHT HEART CATH O2 SATURATION & CARDIAC OUTPUT IN ENDOMYOCARDIAL BIOPSY Coronary Arteriogram Right Heart Catheterization Endomyocardial Biopsy, Right Ventricle Post Transplant Referral ID Status Reason Start Date Expiration Date Visits Re quested Visits Authorized [id number] 1 1 Encounter Details Date Type Department Care Team (Latest Contact Info) Description 11/15/2024 9:22 AM EDT - 11/15/2024 9:43 AM EDT Hospital Encounter [facility] Phlebotomy Admitting [address] [place] [id number] Discharge Disposition: Home or Self Care Social [...] high school, GED, job training, learning the [place] language, technical skills, or developing parenting skills)? [...] Info) Description 11/28/2024 10:20 AM EDT Appointment [facility] S[facility] [address] [place] [address] Renetta Rosenbaum, MARVIN [address] [place] [address] [email or web address] 12/09/2024 8:00 AM EDT Office Visit [facility] Cardiac Transplant [address] [place] [address] Cornelio Dunham MD [address] [facility] [place] [address] [email or web address] 12/09/2024 9:00 AM EDT Office Visit [facility] Cardiac Transplant [address] [place] [address] Natalie Estrada MD 01/27/2025 4:40 PM EST Office Visit [facility] [address] [facility] [place] [address] Jose Hidalgo MD, MPH [address] [place] [address] [email or web address] documented as of this encounter Procedures Procedure Name Priority Date/Time Associated Diagnosis Comments TACROLIMUS LEVEL Routine 11/15/2024 9:27 AM EDT 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 CONTACT TRANSPLANT TEAM OR PHARMACY WITH ANY QUESTIONS. THIS TEST AND ITS PERFORMANCE CHARACTERISTICS WERE DETERMINED BY THE CLINICAL CHEMISTRY LAB, [facility]. IT HAS NOT BEEN CLEARED OR APPROVED BY THE [place]. FDA, WHICH HAS DETERMINED THAT SUCH CLEARANCE OR APPROVAL IS NOT NECESSARY. 11/15/2024 9:27 AM EDT 11/15/2024 9:36 AM EDT us Cornelio Dunham MD LAB BLOOD ORDERABLES Final Result Performing Organization Address City/[facility]/ZIP Co de Phone Number [facility] [address] [place] [phone] * HCG, urine (11/15/2024 9:27 AM EDT) URINE TEST Negative Negative [facility] Urine (Urine) 11/15/2024 9:2 7 AM EDT 11/15/2024 9:36 AM EDT us Andrez Manrique MD URINE ORDERABLES Final R esult Performing Organization Address [facility] Co de Phone Number [facility] [address] [place] [phone] documented in this encounter Visit Diagnoses Diagnosis 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 Assessment Noted Time PHQ-2 Depression Total Score: 0 02/24/20 22 4:08 PM EST documented as of this encounter Care Teams Optometric Aide Relationship Specialty Start Date End Date Petty Almeida PA [address] [place] [address] [place] [address] PCP - General Physician [employer] Workman 07/29/24 Andrez Manrique MD [address] [place] [address] [place] [address] [email or web address] Heart Failure and Transplant Cardiology 08/31/22 Andrez Kahn MD [address] [place] [address] Consulting Provider Cardiology 08/31/22 Luca Alfaro MD [facility] [place] [address] [email or web address] Pediatric Cardiology 08/31/22 Andrez Osullivan MD [address] [place] [id number] [email or web address] Pediatric Cardiology 02/05/24 documented as of this encounter Additional Source Comments The information contained in this document represents components of the legal health record. It is not the complete legal health record.[email or web address]
--- OUTSIDE RECORDS SUMMARY | 2024-11-15 09:44 | XMS_ITS | Encounter Summary ---
Author Organization [facility] Address [address] [place] [address] Phone Care Team Providers Care Engineering Secretary Name Role Phone Deniz Manrique MD Unavailable [phone] Deniz Kahn MD Unavailable Luca Alfaro MD Unavailable [phone] Deniz Osullivan MD Unavailable Petty Almeida Primary Care Provide r Reason for Visit * Auth/Cert (Routine) Specialty Diagnoses / Procedures Referred By Contac t Referred To Contact Diagnoses 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 S/P HEART TRANSPALNT Procedures TX RIGHT HEART CATH O2 SATURATION & CARDIAC OUTPUT TX ENDOMYOCARDIAL BIOPSY Coronary Arteriogram Right Heart Catheterization Endomyocardial Biopsy, Right Ventricle Post Transplant Referral ID Status Reason Start Date Expiration Date Visits Re quested Visits Authorized [id number] 1 1 Encounter Details Date Type Department Care Team (Latest Contact Info) Description 11/15/2024 9:44 AM EDT - 11/15/2024 7:47 PM EDT Hospital Encounter [facility] L2 PRU [address] [place], [place] [id number] Anni Oscar MD [address] [place] [address], [place] [address], [place] [address] [email or web address] Discharge Disposition: Home or Self Care Social [...] GED, job training, learning the Citizen Of [place] language, technical skills, or developing parenting skills)? [...] your housing situation today? I have adama dasilva 03/26/2024 How many times have you [...] Sign Reading Time Taken Comments Blood Pressure 121/65 11/15/2024 6:30 PM EDT Pulse 76 11/15/2024 6:30 PM EDT Temperature 36 C (96.8 F) 11/15/2024 3:45 PM EDT Respiratory Rate 19 11/15/2024 6:30 PM EDT Oxygen Saturation 97% 11/15/2024 6:30 PM EDT Inhaled Oxygen Concentration - - Weight 66.4 kg (146 lb 6.4 oz) 11/15/2024 10:05 AM EDT Height 160 cm (5' 3 ) 11/15/2024 10:05 AM EDT Body Mass Index 25.93 11/15/2024 10:05 AM EDT documented in this encounter Medications at Time of Discharge [...] 06/04/2024 11/18/2024 documented as of this encounter Progress Notes Only the most recent of 3 notes is shown. 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 Heart failure Encounter for palliative care Palpitations Heart transplant recipient Leukocytosis Infected hematoma Bacteremia Immunosuppression CKD stage 3b, GFR 30-44 ml/min Past Medical History: Diagnosis Date RJ (acute kidney injury) 03/11/2024 Atrial flutter Bronchiectasis Left lower lobe Chronic combined systolic and diastolic congestive heart failure 08/04/2020 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, ventricular septal defect; 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, ventricular septal defect; status post multiple interventions Endocarditis 01/1994 Streptococcus sanguinis Status post tubal ligation 2003 Stroke 1994 Ventricular dysfunction Ventricular tachycardia Status post ICD placement Past Surgical History: Procedure Laterality Date ABTHERA REMOVAL AND ABDOMINAL CLOSURE N/A 11/11/2023 Performed by Dread Belcher MD at [facility] OR CARDIAC SURGERY CLOSURE CHEST, WASHOUT N/A 11/05/2023 Performed by Patel Davison MD at [facility] OR COLONOSCOPY N/A 08/04/2023 Performed by Emmanuel Nava MD, MPH at [facility] GI Coronary Arteriogram N/A 09/03/2020 Performed by Aura Soni at [facility] CARDIAC MANAGER FINANCIAL PLANNING Endomyocardial Biopsy, Right Ventricle Post Transplant N/A 05/06/2024 Performed by Deniz Manrique MD at [facility] CARDIAC MANAGER FINANCIAL PLANNING Endomyocardial Biopsy, Right Ventricle Post Transplant N/A 04/02/2024 Performed by Jose Colon MD, PhD at [facility] CARDIAC MANAGER FINANCIAL PLANNING Endomyocardial Biopsy, Right Ventricle Post Transplant N/A 02/26/2024 Performed by Deniz Manrique MD at [facility] CARDIAC MANAGER FINANCIAL PLANNING Endomyocardial Biopsy, Right Ventricle Post Transplant N/A 01/22/2024 Performed by Cornelio Dunham MD at [facility] CARDIAC MANAGER FINANCIAL PLANNING Endomyocardial Biopsy, Right Ventricle Post Transplant N/A 12/25/2023 Performed by Cornelio Dunham MD at [facility] CARDIAC MANAGER FINANCIAL PLANNING Endomyocardial Biopsy, Right Ventricle Post Transplant N/A 11/30/2023 Performed by Deniz Manrique MD at [facility] CARDIAC MANAGER FINANCIAL PLANNING Endomyocardial Biopsy, Right Ventricle Post Transplant N/A 11/23/2023 Performed by Aura Soni MD, MHS at [facility] CARDIAC MANAGER FINANCIAL PLANNING ESOPHAGEAL FUNCTION TEST 24 HOUR PH WITH IMPEDANCE CATHETER 09/09/2020 Performed by Lokesh Machado MD, MPH at [facility] GI ESOPHAGEAL MOTILITY 09/09/2020 Performed by Lokesh Machado MD, MPH at [facility] GI EXPLORATORY LAPAROTOMY N/A 11/11/2023 Performed by Dread Belcher MD at [facility] OR EXPLORATORY LAPAROTOMY N/A 11/10/2023 Performed by Dread Belcher MD at [facility] OR INSERTION DRAINAGE CATHETER Right 01/17/2024 Performed by Ankur Edwards MD at [facility] OR TX BREAST AUGMENTATION WITH IMPLANT Right 2004 Pulmonary Arteriogram N/A 09/03/2020 Performed by Deniz Elaine MD at [facility] CARDIAC MANAGER FINANCIAL PLANNING REMOVAL DRAINAGE CATHETER Right 05/31/2024 Performed by Ankur Edwards MD at [facility] AMBULATORY PROCEDURE HAILE RESECTION BOWEL N/A 11/10/2023 Performed by Dread Belcher MD at [facility] OR Right Heart Catheterization Right 05/06/2024 Performed by Deniz Manrique MD at [facility] CARDIAC MANAGER FINANCIAL PLANNING Right Heart Catheterization N/A 04/02/2024 Performed by Jose Colon MD, PhD at [facility] CARDIAC MANAGER FINANCIAL PLANNING Right Heart Catheterization N/A 03/14/2024 Performed by Cornelio Dunham MD at [facility] CARDIAC MANAGER FINANCIAL PLANNING Right Heart Catheterization N/A 02/26/2024 Performed by Deniz Manrique MD at [facility] CARDIAC MANAGER FINANCIAL PLANNING Right Heart Catheterization N/A 01/22/2024 Performed by Cornelio Dunham MD at [facility] CARDIAC MANAGER FINANCIAL PLANNING Right Heart Catheterization N/A 12/25/2023 Performed by Cornelio Dunham MD at [facility] CARDIAC MANAGER FINANCIAL PLANNING Right Heart Catheterization N/A 11/30/2023 Performed by Deniz Manrique MD at [facility] CARDIAC MANAGER FINANCIAL PLANNING Right Heart Catheterization N/A 11/23/2023 Performed by Aura Soni MD, S at [facility] CARDIAC MANAGER FINANCIAL PLANNING Right Heart Catheterization N/A 10/25/2023 Performed by Orly Langston MD at [facility] CARDIAC MANAGER FINANCIAL PLANNING Right Heart Catheterization N/A 07/12/2023 Performed by Deniz Elaine MD at [facility] CARDIAC MANAGER FINANCIAL PLANNING Right Heart Catheterization N/A 06/09/2023 Performed by Deniz Elaine MD at [facility] CARDIAC MANAGER FINANCIAL PLANNING Right Heart Catheterization N/A 04/06/2023 Performed by Deniz Elaine MD at [facility] CARDIAC MANAGER FINANCIAL PLANNING Right Heart Catheterization N/A 02/14/2023 Performed by Deniz Elaine MD at [facility] CARDIAC MANAGER FINANCIAL PLANNING Right Heart Catheterization N/A 11/02/2022 Performed by Deniz Elaine MD at [facility] CARDIAC MANAGER FINANCIAL PLANNING Right Heart Catheterization N/A 09/03/2020 Performed by Deniz Elaine MD at [facility] CARDIAC MANAGER FINANCIAL PLANNING TRANSPLANT RECIPIENT HEART FROM DONOR N/A 11/04/2023 Performed by Patel Davison MD at [facility] OR Family History Problem Relation Age of Onset Asthma Mother Emphysema Mother Bronchiectasis Stroke Father Testicular cancer Brother Other Brother Overdose Social History Tobacco Use Smoking status: Never Smokeless tobacco: Never Vaping Use Vaping status: never used Substance Use Topics Alcohol use: Not Currently Drug use: Never Current Facility-Administered Medications Medication Dose Route Frequency Provider Last Rate Last Admin aspirin chewable tablet 243-324 mg 243-324 mg Oral Once Wali Law PA-C sodium chloride (NS) 0.9 % syringe flush 3 mL 3 mL Intravenous PRN Wali Law PA-C Vitals There were no vitals taken for this visit. Pre-Sedation Evaluation Chief Complaint: Coronary Angiography +/- Intervention and Right Heart Catheterization +/- Biopsy HPI: Fidelina Peraza is a 44 y.o. female presenting for Coronary Angiography +/- Intervention and Right Heart Catheterization +/- Biopsy. ROS/Med History General Patient has no history of anesthetic complications. Cardiovascular D TGA s/p OHT. Patient has elevated cholesterol/hyperlipidemia. The following test(s) were reviewed: EKG, echocardiogram and cardiac catheterization. Physical Exam NPO Status: Yes Airway: Mallampati score is II. Neck ROM is Full. TM distance is Normal. Dental: Patient has no notable dental hx. Cardiovascular: The heart rhythm is regular. Pulmonary: Labored breathing not present at examination. Neurological: The patient is alert and oriented to self. Sedation Plan ASA Score: 2 Results and Data Reviewed: I personally reviewed the lab results. I personally reviewed the radiology results. Sedation Plan: Patient will be placed on awake overnight monitor and continuous pulse oximetry. Intravenous access will bemaintained. Bag valve mask, oxygen and suction will be available at the bedside. Emergency airway equipment will be immediately available. Medication Plan: Versed (midazolam) initial dose 0.5mg IV push may repeat x2, then 0.5-1mg IV push every 3 minutes x8 doses PRN titrate to moderate sedation. Fentanyl initial dose 12.5mcg IV push may repeat x2, then 12.5-50mcg IV push every 3 minutes x 6 doses PRN titrate to moderate sedation. Informed Consent: Informed consent obtained from: patient Discharge Plan: Discharge Plan: Has a ride with responsible adult documented in this encounter Procedure Notes * Deniz Dailey MD, PhD - 11/15/2024 3:33 PM EDT Medical Imaging Tech Pass Off Details Procedure: Diagnostic Coronary Angiography, myocardial biopsy and Right Heart Catheterization Access: left radial artery, right common femoral artery and left internal jugular vein Left radial artery device: radial compression device Right common femoral artery closure device: perclose L Radial TR Band has 10 cc's. Specimens/Drains: Endomyocardial specimens sent to lab Complications: None Estimated blood loss: Minimal Additional comments: RA 4 V 12 RV 42/3 PA 41/17 (28) PCWP 14 V 20 Tristen 8.72 CI 5.15 Minimal CAD Recommendations Bed rest for 2 hours. Production Line Mechanic: Deniz Dailey MD, PhD Attending: Jose Colon MD, PhD Fellow: Deniz Dailey MD, PhD Pager: [phone] Overnight please page laboratory aide fellow at [phone]. documented in this encounter Plan of Treatment Upcoming Encounters Date Type Department Care Team (Late st Contact Info) Description 11/28/2024 10:20 AM EDT Appointment [facility] Skeletal Health/Osteoporosis Ctr. and Bone Density Unit [address] [place] [address] Renetta Rosenbaum, REMANUFACTURING TECHNICIAN [address] [place] [address] [email or web address] 12/09/2024 8:00 AM EDT Office Visit [facility] Cardiac Transplant [address] [place] [address] Cornelio Dunham MD [address] [facility] [place] [address] [email or web address] 12/09/2024 9:00 AM EDT Office Visit [facility] Cardiac Transplant [address] [place] [address] Natalie Estrada MD 01/27/2025 4:40 PM EST Office Visit [facility] [address] [facility] [place] [address] Jose Hidalgo MD, MPH [address] [facility] [place] [address] [email or web address] documented as of this encounter Procedures Procedure Name Priority Date/Time Associated Diagnosis Comments ENDOMYOCARDIAL BIOPSY, RIGHT VENTRICLE POST TRANSPLANT Routine 11/15/2024 3:24 PM EDT 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 RIGHT HEART CATHETERIZATION Routine 11/15/2024 3:24 PM EDT 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 CORONARY ARTERIOGRAM Routine 11/15/2024 3:24 PM EDT 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 POCT OXYHEMOGLOBIN Routine 11/15/2024 2: 41 PM EDT POCT OXYHEMOGLOBIN Routine 11/15/2024 2: 39 PM EDT ANATOMIC PATHOLOGY Routine 11/15/2024 12 :00 AM EDT documented in this encounter Results * CORONARY ARTERIOGRAM, RIGHT HEART CATHETERIZATION, ENDOMYOCARDIAL BIOPSY, RIGHT VENTRICLE POST TRANSPLANT (11/15/2024 3:24 PM EDT) Anatomical Region [facility]ality [facility] Narrative 11/15/2024 5:14 PM EDT 7Fr LIJV access under US and LRA 6Fr access (unplanned conversion to 5Fr RCFA due to severe spasm with even 4Fr catheters in LRA). 5Fr JL4 and JR4 ultimately used for angiography. RHC with RA 7, RV 42/6, PCWP 14, PA 41/17/28, PA 75%, Ao 93%, CO/CI 8.7/5.2, PVR 128 dsc-5. Coronary angiography without epicardial CAD. Biopsies performed and sent in formalin. Unable to reach mother by phone. Manual pressure to LIJV, Perclose to RCFA and TR band to LRA. I supervised the administration of conscious sedation and attest to the following: Conscious sedation was administered by the catheterization laboratory nurse under my direct supervision. Patient was hemodynamically monitored by myself and the catheterization laboratory nurse. During administration of conscious sedation, the heart rate, blood pressure, oxygen saturation, and response to care were closely monitored. The patient was stable from a hemodynamic and respiratory status when I left the room. The total intra-service physician time was 60 minutes. us Deniz Manrique MD CV CARDIAC CATH ORDERABL ES Final Result * (ABNORMAL) Medical Imaging Tech Oxyhemoglobin (11/15/2024 2:41 PM EDT) Oxy Hgb 92.9 % [facility] CARDIA C CATH DIAG INTERVENTION CTR Comment: Please interpret result based on site of collection in [facility] procedure log. REF RANGE (ART 94.0-100.0, GABRIELE 60.0-85.0) HGB 10.2(L) 12.0 - 16.0 g/dL [facility] CARDIAC CATH DIAG INTERVENTION CTR 11/15/2024 2:41 PM EDT 11/15/2024 2:40 PM EDT Anni Oscar MD POINT OF CARE TEST ORDERABLES Final Result Performing Organization Address [facility] Co de Phone Number [facility] CARDIAC CATH DIAG INTERVENTION CTR [address] [place], [place] [id number] * (ABNORMAL) Medical Imaging Tech Oxyhemoglobin (11/15/2024 2:39 PM EDT) Oxy Hgb 73.7 % [facility] Comment: Please interpret result based on site of collection in [facility] procedure log. REF RANGE (ART 94.0-100.0, GABRIELE 60.0-85.0) HGB 10.0(L) 12.0 - 16.0 g/dL [facility] CARDIAC CATH DIAG INTERVENTION CTR 11/15/2024 2:39 PM EDT 11/15/2024 2:40 PM EDT us Anni Oscar MD POINT OF CARE TEST ORDERABLES Final Result Performing Organization Address [facility] Co de Phone Number [facility] CARDIAC CATH DIAG INTERVENTION CTR [address] [place] [phone] * Anatomic Pathology (11/15/2024 12:00 AM EDT) 11/15/2024 11/15/2024 [facility] CLINICAL LABORATORIES - 11/18/2024 3:46 PM EDT CASE: [id number] PATIENT: FIDELINA PERAZA Date: 1980 Sex: Female [facility] Department of Pathology [address] [place], [place] [address]IA License No.: [id number] Medical Biller: Dr. Ventura Gong M.D., Ph.D. Physician: DENIZ DAILEY MD, PhD Procedure Date: 11/15/2024 Resident: Wyatt Puente M.D., Ph.D. Pathologist: Wyatt Puente M.D., Ph.D. PATHOLOGIC DIAGNOSIS: CARDIAC-TRANSPLANT ENDOMYOCARDIAL BIOPSY RIGHT VENTRICULAR ENDOMYOCARDIAL BIOPSY: Years status post cardiac transplantation.: 1 Two - three foci of lymphocytic infiltrates with myocyte damage; BWH Grade 1-2 R; (ISHLT Grade 2 R), mild to moderate rejection. No histologic evidence of AMR. Focal healing injury. Fragments of diagnostic myocardium: 4 Other Yessenia Schmitt, Cardiac Transplant Clinical Nurse Specialist, was notified of these results on 11/18/2024 at 1:00pm. CLINICAL DATA: History: S/p heart transplant. Operation: Coronary arteriogram (left); right heart catheterization; endomyocardial biopsy, right ventricle post transplant. Operative Findings: None provided. Clinical Diagnosis: None provided. TISSUE SUBMITTED: A/1. Endomyocardial biopsy x 4 GROSS DESCRIPTION: The specimen is received in 1 part, labeled with the patient's name and medical record number. Part A, received in formalin labeled Endomyocardial biopsy x 4 , consists of 4 estrella-red soft tissue fragments (ranging from 0.2-0.3 cm in greatest dimension) which are submitted in toto. A1: 4 fragments. Dictated by: Latoya Calhoun By his/her signature below, the senior physician certifies that he/she personally conducted a microscopic examination ( gross only exam if so stated) of the described specimen(s) and rendered or confirmed the diagnosis(es) related thereto. Final Diagnosis by Wyatt Puente M.D., Ph.D., Electronically signed on Monday November 18, 2024 at 03:46:31PM us Deniz Dailey MD, PhD PATHOLOGY ORDERABLES Nisha santana Result [facility] CLIN[facility] LABORATORIES [address] [place] [phone] documented in this encounter Visit Diagnoses Diagnosis 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 documented in this encounter Administered Medications Inactive Administered Medications - up to 3 most recent administrations Medication Order MAR Action Action Date Dose Rate Site acetaminophen (TYLENOL) suppository 650 mg 650 mg, Rectal, Every 6 hours PRN, mild pain or 1-3 (on a general 0-10 scale), fever, Starting on Mon11/15/24 at 1549, Recovery & Post-op, If unable to tolerate PO. Patient may opt to receive a pain med that is ordered for a lower level of pain. acetaminophen (TYLENOL) tablet 650 mg 650 mg, Oral, Every 6 hours PRN, mild pain or 1-3 (on a general 0-10 scale), fever, Starting on Mon11/15/24 at 1549, Recovery & Post-op, Patient may opt to receive a pain med that is ordered for a lower level of pain. Given 11/15/2024 5:45 PM EDT 650 mg aspirin chewable tablet 243-324 mg 243-324 mg, Oral, Once, On Mon11/15/24 at 1045, For 1 dose, Pre-Procedure (day of), Administer with full glass of water, food, or milk to decrease GI upset. Given 11/15/2024 10:37 AM EDT 324 mg documented in this encounter Active and Recently Administered Medications Times are shown in EDT. Scheduled Medication Order 11/13/2024 11/14/2024 11/15/2024 aspirin chewable tablet 243-324 mg (COMPLETED) 243-324 mg, Oral, Once, On Mon11/15/24 at 1045, For 1 dose, Pre-Procedure (day of), Administer with full glass of water, food, or milk to decrease GI upset. 1037 (Given - Provid er: Mariana Marin RN) PRN Medication Order 11/13/2024 11/14/2024 11/15/2024 acetaminophen (TYLENOL) suppository 650 mg(Linked Group 1) 650 mg, Rectal, Every 6 hours PRN, mild pain or 1-3 (on a general 0-10 scale), fever, Starting on Mon11/15/24 at 1549, Recovery & Post-op, If unable to tolerate PO. Patient may opt to receive a pain med that is ordered for a lower level of pain. 1744 (See Alternativ e - Provider: Susy Fernandez RN) acetaminophen (TYLENOL) tablet 650 mg(Linked Group 1) 650 mg, Oral, Every 6 hours PRN, mild pain or 1-3 (on a general 0-10 scale), fever, Starting on Mon11/15/24 at 1549, Recovery & Post-op, Patient may opt to receive a pain med that is ordered for a lower level of pain. 1744 (Given - Provid er: Susy Fernandez RN) atropine injection syringe 1 mg 1 mg, Intravenous, Once as needed, other (free text field), vagal reaction, HR less than 40, Starting on Mon11/15/24 at 1549, For 6 hours, Recovery & Post-op, If given IV, administer by rapid IV push. fentaNYL (PF) (SUBLIMAZE) injection (CANCELED) As needed, Starting on Mon11/15/24 at 1411, Intra-op/procedure 1411 (Given - Provid er: Monica Reyes RN)1421 (Given - Provider: Monica Reyes RN)1430 (Given - Provider: Monica Reyes RN)1435 (Given - Provider: Monica Reyes RN)1440 (Given - Provider: Monica Reyes RN)1450 (Given - Provider: Monica Reyes RN)1456 (Given - Provider: Monica Reyes RN)1504 (Given - Provider: Monica Reyes RN)1514 (Given - Provider: Monica Reyes RN) heparin 1,000 unit/mL injection (CANCELED) As needed, Starting on Mon11/15/24 at 1520, Intra-op/procedure 1520 (Given - Provid er: Monica Reyes RN) iohexoL (OMNIPAQUE-350) 350 mg iodine/mL solution (CANCELED) As needed, Starting on Mon11/15/24 at 1520, Intra-op/procedure 1520 (Given - Provid er: Jose Colon MD, PhD) lidocaine (XYLOCAINE) 2% injection (CANCELED) As needed, Starting on Mon11/15/24 at 1421, Intra-op/procedure 1421 (Given - Provid er: Jose Colon MD, PhD)1501 (Given - Provider: Jose Colon MD, PhD) midazolam (PF) (VERSED) injection Soln (CANCELED) As needed, Starting on Mon11/15/24 at 1411, Intra-op/procedure 1411 (Given - Provid er: Monica Reyes RN)1421 (Given - Provider: Monica Reyes RN)1429 (Given - Provider: Monica Reyes RN)1435 (Given - Provider: Monica Reyes RN)1440 (Given - Provider: Monica Reyes RN)1450 (Given - Provider: Monica Reyes RN)1504 (Given - Provider: Monica Reyes RN)1514 (Given - Provider: Monica Reyes RN) Linked Groups Order Group 1: acetaminophen (TYLENOL) tablet 650 mgJump to med 650 mg, Oral, Every 6 hours PRN, mild pain or 1-3 (on a general 0-10 scale), fever, Starting on Mon11/15/24 at 1549, Recovery & Post-op, Patient may opt to receive a pain med that is ordered for a lower level of pain. Or acetaminophen (TYLENOL) suppository 650 mgJump to med 650 mg, Rectal, Every 6 hours PRN, mild pain or 1-3 (on a general 0-10 scale), fever, Starting on Mon11/15/24 at 1549, Recovery & Post-op, If unable to tolerate PO. Patient may opt to receive a pain med that is ordered for a lower level of pain. 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 Assessment Noted Time PHQ-2 Depression Total Score: 0 02/24/20 4:08 PM EST documented as of this encounter Care Teams Engineering Secretary Relationship Specialty Start Date End Date Petty Almeida PA [address] [place] [address] [place] [address] PCP - General Physician Windows Application Developer 07/29/24 Deniz Manrique MD [address] [place] [phone] [email or web address] Heart Failure and Transplant Cardiology 08/31/22 Deniz Kahn MD [address] [place] [phone] [email or web address] Consulting Provider Cardiology 08/31/22 Luca Alfaro MD [address] [place] [phone] [email or web address] Pediatric Cardiology 08/31/22 Deniz Osullivan MD [address] [place] [phone] [email or web address] Pediatric Cardiology 02/05/24 documented as of this encounter Additional Source Comments The information contained in this document represents components of the legal health record. It is not the complete legal health record.[facility]
--- OUTSIDE RECORDS SUMMARY | 2024-11-15 13:53 | XMS_ITS | Encounter Summary ---
Author Organization [facility] Address [address] [facility] [address] [place] [phone] Phone Care Team Providers Care Cleaning Handyman Name Role Phone Deniz Manrique MD Unavailable [phone] Deniz Kahn MD Unavailable [phone] Luca Alfaro MD Unavailable [phone] Deniz Osullivan MD Unavailable [phone] Petty Almeida Primary Care Provide r Reason for Visit * Auth/Cert (Routine) Specialty Diagnoses / Procedures Referred By Contac t Referred To Contact Diagnoses 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 S/P HEART TRANSPALNT Procedures NC RIGHT HEART CATH O2 SATURATION & CARDIAC OUTPUT NC ENDOMYOCARDIAL BIOPSY Coronary Arteriogram Right Heart Catheterization Endomyocardial Biopsy, Right Ventricle Post Transplant Referral ID Status Reason Start Date Expiration Date Visits Re quested Visits Authorized [id number] 1 1 Encounter Details Date Type Department Care Team (Late st Contact Info) Description 11/15/2024 1:53 PM EDT - 11/15/2024 3:18 PM EDT Surgery [facility] Cardiac Milling Operator [address] [place] [address] [phone] Jose Colon MD, PhD [address] [place] [address] [phone] [email or web address] Coronary Arteriogram Social History Tobacco Use Types Packs/Day Years [...] high school, GED, job training, learning the [place]i language, technical skills, or developing parenting skills)? 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 [...] 11/11/2023 Performed by Dread Belcher MD at [facility] OR CARDIAC SURGERY CLOSURE CHEST, WASHOUT N/A 11/05/2023 Performed by Patel Davison MD at [facility] OR COLONOSCOPY N/A 08/04/2023 Performed by Emmanuel Nava MD, MPH at [facility] GI Coronary Arteriogram N/A 09/03/2020 Performed by Aura Soni at [facility] CARDIAC AGRICULTURAL PRODUCE COMMISSION AGENT Endomyocardial Biopsy, Right Ventricle Post Transplant N/A 05/06/2024 Performed by Deniz Manrique MD at [facility] CARDIAC AGRICULTURAL PRODUCE COMMISSION AGENT Endomyocardial Biopsy, Right Ventricle Post Transplant N/A 04/02/2024 Performed by Jose Colon MD, PhD at [facility] CARDIAC AGRICULTURAL PRODUCE COMMISSION AGENT Endomyocardial Biopsy, Right Ventricle Post Transplant N/A 02/26/2024 Performed by Deniz Manrique MD at [facility] CARDIAC AGRICULTURAL PRODUCE COMMISSION AGENT Endomyocardial Biopsy, Right Ventricle Post Transplant N/A 01/22/2024 Performed by Cornelio Dunham MD at [facility] CARDIAC AGRICULTURAL PRODUCE COMMISSION AGENT Endomyocardial Biopsy, Right Ventricle Post Transplant N/A 12/25/2023 Performed by Cornelio Dunham MD at [facility] CARDIAC AGRICULTURAL PRODUCE COMMISSION AGENT Endomyocardial Biopsy, Right Ventricle Post Transplant N/A 11/30/2023 Performed by Deniz Manrique MD at [facility] CARDIAC AGRICULTURAL PRODUCE COMMISSION AGENT Endomyocardial Biopsy, Right Ventricle Post Transplant N/A 11/23/2023 Performed by Aura Soni MD, MHS at [facility] CARDIAC AGRICULTURAL PRODUCE COMMISSION AGENT ESOPHAGEAL FUNCTION TEST 24 HOUR PH WITH IMPEDANCE CATHETER 09/09/2020 Performed by Lokesh Machado MD, MPH at [facility] GI ESOPHAGEAL MOTILITY 09/09/2020 Performed by Lokesh Machado MD, MPH at [facility] GI EXPLORATORY LAPAROTOMY N/A 11/11/2023 Performed by Dread Belcher MD at [facility] OR EXPLORATORY LAPAROTOMY N/A 11/10/2023 Performed by Dread Belcher MD at [facility] OR INSERTION DRAINAGE CATHETER Right 01/17/2024 Performed by Ankur Edwards MD at [facility] OR NC BREAST AUGMENTATION WITH IMPLANT Right 2004 Pulmonary Arteriogram N/A 09/03/2020 Performed by Deniz Elaine MD at [facility] CARDIAC AGRICULTURAL PRODUCE COMMISSION AGENT REMOVAL DRAINAGE CATHETER Right 05/31/2024 Performed by Ankur Edwards MD at [facility] AMBULATORY PROCEDURE HAILE RESECTION BOWEL N/A 11/10/2023 Performed by Dread Belcher MD at [facility] OR Right Heart Catheterization Right 05/06/2024 Performed by Deniz Manrique MD at [facility] CARDIAC AGRICULTURAL PRODUCE COMMISSION AGENT Right Heart Catheterization N/A 04/02/2024 Performed by Jose Colon MD, PhD at [facility] CARDIAC AGRICULTURAL PRODUCE COMMISSION AGENT Right Heart Catheterization N/A 03/14/2024 Performed by Cornelio Dunham MD at [facility] CARDIAC AGRICULTURAL PRODUCE COMMISSION AGENT Right Heart Catheterization N/A 02/26/2024 Performed by Deniz Manrique MD at [facility] CARDIAC AGRICULTURAL PRODUCE COMMISSION AGENT Right Heart Catheterization N/A 01/22/2024 Performed by Cornelio Dunham MD at [facility] CARDIAC AGRICULTURAL PRODUCE COMMISSION AGENT Right Heart Catheterization N/A 12/25/2023 Performed by Cornelio Dunham MD at [facility] CARDIAC AGRICULTURAL PRODUCE COMMISSION AGENT Right Heart Catheterization N/A 11/30/2023 Performed by Deniz Manrique MD at [facility] CARDIAC AGRICULTURAL PRODUCE COMMISSION AGENT Right Heart Catheterization N/A 11/23/2023 Performed by Aura Soni MD, S at [facility] CARDIAC AGRICULTURAL PRODUCE COMMISSION AGENT Right Heart Catheterization N/A 10/25/2023 Performed by Orly Langston MD at [facility] CARDIAC AGRICULTURAL PRODUCE COMMISSION AGENT Right Heart Catheterization N/A 07/12/2023 Performed by Deniz Elaine MD at [facility] CARDIAC AGRICULTURAL PRODUCE COMMISSION AGENT Right Heart Catheterization N/A 06/09/2023 Performed by Deniz Elaine MD at [facility] CARDIAC AGRICULTURAL PRODUCE COMMISSION AGENT Right Heart Catheterization N/A 04/06/2023 Performed by Deniz Elaine MD at [facility] CARDIAC AGRICULTURAL PRODUCE COMMISSION AGENT Right Heart Catheterization N/A 02/14/2023 Performed by Deniz Elaine MD at [facility] CARDIAC AGRICULTURAL PRODUCE COMMISSION AGENT Right Heart Catheterization N/A 11/02/2022 Performed by Deniz Elaine MD at [facility] CARDIAC AGRICULTURAL PRODUCE COMMISSION AGENT Right Heart Catheterization N/A 09/03/2020 Performed by Deniz Elaine MD at [facility] CARDIAC AGRICULTURAL PRODUCE COMMISSION AGENT TRANSPLANT RECIPIENT HEART FROM DONOR N/A 11/04/2023 Performed by Patel Davison MD at [facility] OR Family History Problem Relation Age of [...] tablet 243-324 mg 243-324 mg Oral Once Law, Wali Zachery, PA-C sodium chloride (NS) 0.9 % syringe [...] Sedation Plan: Patient will be placed on air sampling and monitoring and continuous pulse oximetry. Intravenous access will [...] Plan: Has a ride with responsible adult * Wali Law PA-C - 11/15/2024 7:57 AM EDT Attending: Phone #: PA/Fellow: Phone #: Fellow fondant cooker: Phone #: Referring MD: Phone #: Cath Pre-Procedure Note History of Present Illness 44 female with D TGA and end stage heart failure s/p heart transplant 11/03/24. She presents for first annual heart transplant evaluation. Dr. Dunham requests RHC/ coronary angio and EMBx. Had very complicated post transplant course including prolonged rehab stay. 05/06/24-RIJ occluded and small CathPCI v5.0 Registry Information ---History and Risk Factors--- Dyslipidemia: No Hypertension: No Family History of Premature CAD: No Cerebrovascular Disease: No Peripheral Arterial Disease: No Chronic Lung Disease: No Prior KS: No Prior PCI: No Prior CABG: No Cardiac Arrest Out of Hospital: No Cardiac Arrest at Transferring Facility: No ---Known or Diagnosed Prior to First Milling Operator Visit--- Diabetes Mellitus: No Currently On Dialysis: No CSHA Clinical Frailty Scale: 3 - Managing Well ---Pre-Procedure Information--- Heart Failure: No ---Diagnostic Test--- Electrocardiac Assessment Method: ECG Stress or Imaging Studies Performed: No [place] Coronary Calcium Score Assessed: No LVEF Assessed: Yes Most Recent LVEF (%): 65 Prior Dx Coronary Angiography Procedure: No ---Pre-Procedure Medications--- TK Inhibitor Administered: No Antiarrhythmic Agent Other Administered: No Aspirin Administered: Yes Angiotensin Receptor Blockers Administered: No Angiotensin Receptor-Neprilysin Inhibitors Administered: No Beta Blockers (Any) Administered: No Ca Channel Blockers (Any) Administered: No Long Acting Nitrates Administered: No Ranolazine Administered: No Statin (Any) Administered: Yes Non-Statin (Any) Administered: No PCSK9 Inhibitors Administered: No ---Milling Operator Visit--- Indications for Milling Operator Visit: Post Cardiac Transplant Chest Pain Symptom Assessment: Asymptomatic Cardiovascular Instability: No Medications Home Meds: No medications prior to admission. Scheduled Meds: PRN Meds: Continuous Meds: No current Epic-ordered facility-administered medications on file. Allergies Allergies Allergen Reactions Hydromorphone Anaphylaxis Bronchospasm or Wheezing Other Reaction(s): breathing problems Nitroglycerin Hives Physical Exam Physical Exam Constitutional: No distress. HENT: Mouth/Throat: Oropharynx is clear. Cardiovascular: Regular rhythm. Pulses: Radial pulses are 0 on the right side and 1+ on the left side. Femoral pulses are 2+ on the right side and 2+ on the left side. Pulmonary/Chest: Effort normal. Neurological: She is alert and oriented to person, place, and time. Skin: Skin is warm and dry. WBC Date Value Ref Range Status 11/14/2024 9.78 4.00 - 11.00 K/uL Final RBC Date Value Ref Range Status 11/14/2024 4.26 4.00 - 5.20 M/uL Final HGB Date Value Ref Range Status 11/14/2024 12.1 12.0 - 16.0 g/dL Final HCT Date Value Ref Range Status 11/14/2024 38.1 36.0 - 46.0 % Final PLT Date Value Ref Range Status 11/14/2024 260 150 - 450 K/uL Final MCV Date Value Ref Range Status 11/14/2024 89.4 80.0 - 100.0 fL Final MCH Date Value Ref Range Status 11/14/2024 28.4 27.0 - 31.0 pg Final MCHC Date Value Ref Range Status 11/14/2024 31.8 (L) 32.0 - 36.0 g/dL Final RDW Date Value Ref Range Status 11/14/2024 13.0 11.5 - 14.5 % Final BASOS Date Value Ref Range Status 11/14/2024 0.4 0.0 - 1.5 % Final CO2 Date Value Ref Range Status 11/14/2024 20 (L) 22 - 31 mmol/L Final BUN Date Value Ref Range Status 11/14/2024 33 (H) 6 - 23 mg/dL Final Assessment and Plan Planned procedure: Coronary angiography, RHC and EMBx Access: LRA/LIJ (RIJ occluded, poor RRA pulse) Indication: s/p OHT Referring MD to page at end of case: Roly Pre Meds given: ASA 324mg Consent obtained Code Status reviewed: Full NPO CREATININE Date Value Ref Range Status 11/14/2024 1.25 (H) 0.50 - 1.20 mg* Final * Addi Noble RN - 10/25/2024 11:28 AM EDT Pre-Procedure Note and Instructions for [facility] Cardiac Catheterization & Peripheral Angiogram Lab Scheduling Questions For any arrival times please call [phone] the work day before, between 12 pm and 5 pm to verify arrival time. Scheduling questions, insurance concerns, or rescheduling needs please call the scheduling office at [phone]. This number is staffed from 9:00 am to 5:00 pm Monday through Monday barring holidays. Check In Please arrive to the Main Admissions office located in the lobby of [address] [place] [address]. General House Worker parking is available at that entrance. The office is located to the right of the main information desk in the hallway on the left side. (Big clear glass door) Eating / NPO (Nothing by mouth) Guidelines for IVCS / Anesthesia / MAC / RN Sedation You can eat or drink anything you would like up to 8 hours before your arrival time. You can then enjoy clear liquids only up to 2 hours before your arrival time. Clear liquid definition is, you can eat or drink only the things you can see through during your clear liquid phase. These include: Plain water Fruit juices without pulp, such as grape juice, filtered apple juice, and cranberry juice. Soup broth (bouillon or consomm??) Clear sodas, such as chad juan antonio and Sprite Gelatin Popsicles that do not have bits of fruit, fruit pulp, or yogurt in them. Tea or coffee with no cream or milk added. Sports drinks. 2 Hours before your arrival time please stop ingesting all clear liquids. You will need to be NPO (Nothing by mouth) for 2 hours prior to your arrival to the procedure or your procedure will be canceled. Sedation / Anesthesia IV Conscious Sedation (IVCS) / anesthesia will be discussed with you on the day of your procedure by your clinical team based on your individual needs. Therefore, you will need a designated river driver when you are ready to go home after the procedure. This person should be Friend / Family. Morning of your procedure Prior to leaving your home that morning you can shower, brush your teeth, and get into comfortable clothes that are easy to get in and out of. Items to bring with you the day of the procedure Cell phone with charging cord. Eyeglasses and/or hearing aids. Printed med list with a stereo equipment salesperson's / designated river driver's name and number for the performing M.D. to call when your procedure is done, if you would like. Entertainment materials. ([place], book, newspaper, ear buds/headphones for device to connect to free public Wi-Fi). Wallet with photo ID, Insurance Cards, and no more than $10 chavez. Items to leave at home Chavez is unnecessary. All items such as food, snacks, drink, and parking can be paid with a credit card. Please leave all jewelry at home (including wedding bands, engagement rings, smart watches, bracelets, necklaces, and earrings). Medications Please take normal medications that morning as discussed with water only. After pills are washed down, no more water, please. If you are on Aspirin / Plavix (Clopidogrel) / Brilinta (Ticagrelor) / Effient (Prasugrel) these medications are OK to continue for your procedure unless the Registered Nurse specifically indicated to hold them in the section below: Timeline of expected hospital day (Average expected time in hospital is between 6-8 hours) First 2 hours of day: Check-in, blood work obtained (CBC, Chemistry Panel, Lipid Panel, Coagulationpanel, and HCG when needed) and pre-procedure prep. You will have limited access to friend/family during this block of time. Second 2 hours of your day: During this block of time, we anticipate starting your case. Third and final 2 - 4 hours of day: Recovery from the procedure in our recovery room and discharge.You will have limited access to friend/family during this block of time. In our recovery area (L2PRU) you will wake up from sedation, have some food, and wait for your puncture/access site to heal asdiscussed. Pending the results of your procedure, your M.D. will discuss if hospital admission is required. Recovery room (L2PRU) with discharge the next morning of [facility] cardiology hospital bed discharge is between 10:00 a.m. to 2:00 p.m. After your discharge For immediate follow up questions regarding your procedure, your medications, and any pending test results, please contact [facility] Page Math Teacher at [phone] and ask for the on-call Cardiac Cath Fellow to be paged. Please keep in mind that we try our best to keep the timeline as accurate as possible but sometimesemergencies occur that may impact the schedule of the day. I can be reached at [phone] Monday thru Monday 8:00 am to 4:00 pm for any non-emergency questions related to prep for this procedure. Addi Orellana RN, BSN [facility] Pre-Procedure Call Center Information given directly to patient or designee during pre-procedure phone call. We reviewed allergies, height & weight, medications, required labs, and procedural-related questions were answered. documented in this encounter Procedure Notes * Deniz Dailey MD, PhD - 11/15/2024 3:33 PM EDT Milling Operator Pass Off Details Procedure: Diagnostic Coronary Angiography, [...] CAD Recommendations Bed rest for 2 hours. Captain'S Assistant: Deniz Dailey MD, PhD Attending: Jose Colon MD, PhD Fellow: Deniz Dailey MD, PhD Pager: [phone] Overnight please page open hearth laborer fellow at [phone]. documented in this encounter Plan of Treatment Upcoming Encounters Date Type Department Care Team (Late st Contact Info) Description 11/28/2024 10:20 AM EDT Appointment [facility] Skeletal Health/Osteoporosis Ctr[facility] and Bone Density Unit [address] [place] [address] Renetta Rosenbaum, MARVIN [address] [place] [address] [email or web address] 12/09/2024 8:00 AM EDT Office Visit [facility] Cardiac Transplant [address] [place] [address] Cornelio Dunham MD [address] [facility] [place]ovascular [place] [address] [email or web address] 12/09/2024 9:00 AM EDT Office Visit [facility] Cardiac Transplant [address] [place] [address] Natalie Estrada MD 01/27/2025 4:40 PM EST Office Visit [facility] Specialties [address] [facility] ASB2-2 [place] [address] Jose Hidalgo MD, MPH [address] [facility], [facility] [place] [address] [email or web address] documented as of this encounter Procedures Procedure [...] 3:24 PM EDT) Anatomical Region Laterality Modality [facility] Narrative 11/15/2024 5:14 PM EDT 7Fr LIJV [...] total intra-service physician time was 60 minutes. Deniz Manrique MD CV CARDIAC CATH ORDERABL ES Final Result * (ABNORMAL) Milling Operator Oxyhemoglobin (11/15/2024 2:41 PM EDT) Oxy Hgb 92.9 % [facility] Comment: Please interpret result based on site of collection in [facility] procedure log. REF RANGE (ART 94.0-100.0, GABRIELE 60.0-85.0) HGB 10.2(L) 12.0 - 16.0 g/dL [facility] CARDIAC CATH DIAG INTERVENTION CTR 11/15/2024 2:41 PM EDT 11/15/2024 2:40 PM EDT us Anni Oscar MD POINT OF CARE TEST ORDERABLES Final Result [facility] CARDIAC CATH DIAG INTERVENTION CTR [address] [place] [id number] * (ABNORMAL) Milling Operator Oxyhemoglobin (11/15/2024 2:39 PM EDT) Oxy Hgb 73.7 % [facility] CARDIA C CATH DIAG INTERVENTION CTR Comment: Please interpret result based on site of collection in [facility] procedure log. REF RANGE (ART 94.0-100.0, GABRIELE 60.0-85.0) HGB 10.0(L) 12.0 - 16.0 g/dL [facility] CARDIAC CATH DIAG INTERVENTION CTR 11/15/2024 2:39 PM EDT 11/15/2024 2:40 PM EDT Anni Oscar MD POINT OF CARE TEST ORDERABLES Final Result [facility] CARDIAC CATH DIAG INTERVENTION CTR [address] [place], [place] [id number] * Anatomic Pathology (11/15/2024 12:00 AM EDT) 11/15/2024 11/15/2024 Narrative [facility] - 11/18/2024 3:46 PM EDT CASE: [id number] PATIENT: FIDELINA PERAZA Date: 1980 Sex: Female [facility] Department of Pathology [address] [place], [place] [address]IA License No.: [id number] Material Attendant: Dr. Ventura Gong M.D., Ph.D. Physician: DENIZ [...] MD, PhD PATHOLOGY ORDERABLES Nisha santana Result Performing Organization Address City/State/[facility] Co de Phone Number [facility] [address] [place] [address] documented in this encounter Visit Diagnoses Diagnosis [...] Given 11/15/2024 10:37 AM EDT 324 mg fentaNYL (PF) (SUBLIMAZE) injection As needed, Starting on Mon11/15/24 at 1411, Intra-op/procedure Given 11/15/2024 3:14 PM EDT 25 mcg Given 11/15/2024 3:04 PM EDT 25 mcg Given 11/15/2024 2:56 PM EDT 25 mcg heparin 1,000 unit/mL injection As needed, Starting on Mon11/15/24 at 1520, Intra-op/procedure Given 11/15/2024 3:20 PM EDT 2,000 Units iohexoL (OMNIPAQUE-350) 350 mg iodine/mL solution As needed, Starting on Mon11/15/24 at 1520, Intra-op/procedure Given 11/15/2024 3:20 PM EDT 70 mL lidocaine (XYLOCAINE) 2% injection As needed, Starting on Mon11/15/24 at 1421, Intra-op/procedure Given 11/15/2024 3:01 PM EDT 10 mL Right Groin Given 11/15/2024 2:21 PM EDT 5 mL Le ft Wrist midazolam (PF) (VERSED) injection Soln As needed, Starting on Mon11/15/24 at 1411, Intra-op/procedure Given 11/15/2024 3:14 PM EDT 0.5 mg Given 11/15/2024 3:04 PM EDT 0.5 mg Given 11/15/2024 2:50 PM EDT 1 mg documented in this encounter Active and [...] ordered for a lower level of pain. 174 (See Alternativ e - Provider: Susy Fernandez RN) acetaminophen (TYLENOL) tablet 650 mg(Linked Group 1) 650 mg, Oral, Every 6 hours PRN, mild pain or 1-3 (on a general 0-10 scale), fever, Starting on Mon11/15/24 at 1549, Recovery & Post-op, Patient may opt to receive a pain med that is ordered for a lower level of pain. 174 (Given - Provid er: Susy Fernandez RN) [...] documented as of this encounter Care Teams Cleaning Handyman Relationship Specialty Start Date End Date Petty Almeida PA [address] [place] [address] Dr Wong, [place] [address] PCP - General Physician Quality Consultant 07/29/24 Deniz Manrique MD [address] [place] [address] [place] [address] [email or web address] Heart Failure and Transplant Cardiology 08/31/22 Deniz Kahn MD [address] [place] [address] [email or web address] Consulting Provider Cardiology 08/31/22 Luca Alfaro MD [address] [place] [address] [email or web address] Pediatric Cardiology 08/31/22 Deniz Osullivan MD [address] [place] [address] [email or web address] Cardiology 02/05/24 documented as of this encounter Additional Source Comments The information contained in this document represents components of the legal health record. It is not the complete legal health record.[facility]
[2024-11-18 15:34] VITALS: BP 124/88; PULSE 88; O2SAT 100; BMI 27.0
--- NOTE | 2024-11-18 15:34 | A.OFFVIS_ITS ---
Intake Vital Signs 11/18/24 15:34 Height 5 ft 2 in Weight 147 lb 6 oz BMI 27.0 Intake Visit Reasons: 2 month follow up Allergies nitroglycerin (NITROGLYCERIN) Allergy (Mild, Verified 06/13/24 15:51) HIVES hydromorphone (Dilaudid) Allergy (Unknown, Verified 06/13/24 15:51) anaphylaxis From DILAUDID Allergy (Severe, Uncoded 06/13/24 15:51) ANAPHYLAXIS dilaudi Allergy (Unknown, Uncoded 06/13/24 15:51) throat swelling nitroglycerine Allergy (Unknown, Uncoded 06/13/24 15:51) hives [facility] Medical History (Updated 07/12/24 @ 07:34 by Petty Almeida PA-C) Bilateral pleural effusion Left ventricular thrombus H/O cardiac murmur Cardiac defibrillator in place Congenital heart disease Transposition great arteries Surgical History (Updated 06/13/24 @ 15:52 by RADHA North) History of heart transplant S/P lobectomy of lung H/O right breast implant Hx of cholecystectomy H/O heart surgery Social History Housing: Apartment Alcohol intake: never Patient Tobacco Use Status: Never used Tobacco e-Cigarette/Vaping Use: Never Used service: No Current occupational status: unemployed Cognitive needs: Yes (walker, wheelchair) Hearing needs: No Vision needs: Yes Questionnaire PHQ-9 Over the last 2 weeks, how often have you been bothered by any of the following problems? 1. Little interest or pleasure in doing things: not at all 2. Feeling down, depressed, or hopeless: not at all 3. Trouble falling or staying asleep, or sleeping too much: not at all 4. Feeling tired or having little energy: not at all 5. Poor appetite or overeating: not at all 6. Feeling bad about yourself - or that you are a failure or have let yourself or your family down: not at all 7. Trouble concentrating on things, such as reading the newspaper or watching television: not at all 8. Moving or speaking so slowly that other people could have noticed. Or the opposite - being so fidgety or restless that you have been moving around a lot more than usual: not at all 9. Thoughts that you would be better off or of hurting yourself in some way: not at all Total score: 0 Source: Developed by Drs. Wyatt Baeza, Yary Celis, Mykel Ryan and colleagues, with an educational cassidy from [employer]. Quality Reporting (2019) Depression/Bipolar (159/160/161/177) PHQ-9: Total score: 0 Coding
--- NOTE | 2024-11-18 15:36 | A.OFFPC_ITS ---
Vital Signs 11/18/24 15:34 Height 5 ft 2 in Weight 147 lb 6 oz BMI 27.0 BP 124/88 Pulse 88 Pulse Oximetry (%) 100 Intake Visit Reasons: 2 month follow up Interactive Media Director Required: No Accompanied by: Daughter Allergies nitroglycerin (NITROGLYCERIN) Allergy (Mild, Verified 11/18/24 15:43) HIVES hydromorphone (Dilaudid) Allergy (Unknown, Verified 11/18/24 15:43) anaphylaxis From DILAUDID Allergy (Severe, Uncoded 11/18/24 15:43) ANAPHYLAXIS dilaudi Allergy (Unknown, Uncoded 11/18/24 15:43) throat swelling nitroglycerine Allergy (Unknown, Uncoded 11/18/24 15:43) hives Medication List - Last Reconciled 11/18/24 by Petty Almeida PA-C aspirin 81 mg PO DAILY commode As directed eslwee-xcfnrxlr-[id number] 6,000-19,000 -30,000 unit (Creon) caps PO mycophenolate sodium 360 mg PO BID pravastatin 10 mg PO BEDTIME prednisone 5 mg PO DAILY sevelamer carbonate 800 mg PO TID tacrolimus 4 mg PO BID Tobacco use date assessed: 11/18/24 Dental Screening Dental Screen Date: 06/13/24 Did you have a dental visit in the last 12 months?: Yes Did you have a dental problem in the last 6 months where you did not have access to dental care?: No Was dental information given to patient?: Patient has dentist HPI 2 month follow up HPI Details 44-year-old female with past medical his tory of chronic kidney disease, depression, anxiety and end-stage heart failure last seen 05/2024 coming in for follow up. Presenting with heart transplant rejection. Heart transplant rejection was identified a couple of weeks ago, requiring a visit to [place] for further evaluation, including an echocardiogram and biopsy. The patient underwent a biopsy and radiation treatment, with procedures performed through the neck and groin. Medication adjustments include an increase in prednisone to 60 mg for three days, followed by a reduction to 5 mg. The patient reports no chest pain, lightheadedness, dizziness, palpitations, or dyspnea, but experiences fatigue. Anxiety is reportedly manageable without medication, and the patient has discontinued mirtazapine. Dyslipidemia is managed with pravastatin and baby aspirin, with regular monitoring of cholesterol levels. 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 mammogram: 2023 pap smear: 2023 [facility] Medical History Bilateral pleural effusion Left ventricular thrombus H/O cardiac murmur Cardiac defibrillator in place Congenital heart disease Transposition great arteries Surgical History History of heart transplant S/P lobectomy of lung H/O right breast implant Hx of cholecystectomy H/O heart surgery Social History Housing: Apartment Alcohol intake: never Patient Tobacco Use Status: Never used Tobacco e-Cigarette/Vaping Use: Never Used service: No Current occupational status: unemployed Cognitive needs: Yes (walker, wheelchair) Hearing needs: No Vision needs: Yes Questionnaire PHQ-9 Over the last 2 weeks, how often have you been bothered by any of the following problems? 1. Little interest or pleasure in doing things: not at all 2. Feeling down, depressed, or hopeless: not at all 3. Trouble falling or staying asleep, or sleeping too much: not at all 4. Feeling tired or having little energy: not at all 5. Poor appetite or overeating: not at all 6. Feeling bad about yourself - or that you are a failure or have let yourself or your family down: not at all 7. Trouble concentrating on things, such as reading the newspaper or watching television: not at all 8. Moving or speaking so slowly that other people could have noticed. Or the opposite - being so fidgety or restless that you have been moving around a lot more than usual: not at all 9. Thoughts that you would be better off or of hurting yourself in some way: not at all Total score: 0 Depression Screening Interpretation: Negative Depression Screening Done: Yes 23575 - PHQ-9 Billing: Yes Source: Developed by Drs. Wyatt Baeza, Yary Celis, Mykel Ryan and colleagues, with an educational cassidy from [employer]. Thrive Questionnaire Date Thrive assessed: 11/18/24 I am a: Patient What is your living situation today?: I have a steady place to live Within the past 12 months, did the food you bought not last and you didn't have the money to get more?: Sometimes True Within the past 12 months, did you worry whether your food would run out before you got money to buy more?: Sometimes True Do you have trouble paying for medicines?: Yes Do you have trouble getting transportation to medical appointments?: No Do you have trouble paying your heating and electricity bill?: Yes Do you have trouble taking care of your child, family member or friend?: No Do you have trouble with day-to-day activities such as bathing, preparing meals, shopping, managing finances, etc.?: Yes Are you currently unemployed and looking for a job?: Yes Are you interested in more education?: No Please select the resources that you would like help with: Utilities Currently or been in a relationship where the following occur: No concerns reported THRIVE Score: 3 AUDIT C Alcohol Use Questionnaire (AUDIT-C) 1. How often do you have a drink containing alcohol?: Monthly or less 2. How many drinks containing alcohol do you have on a typical day when you are drinking?: 1 or 2 3. How often do you have six or more drinks on one occasion?: Less than monthly Total Score: 2 JOHN-7 AMB Questionnaire JOHN-7 Date JOHN - 7 assessed: 11/18/24 Feeling nervous, anxious, or on edge: 1 = Several days Not being able to stop or control worryin = Several days Worrying too much about different things: 1 = Several days Trouble relaxin = Not at all Being so restless that it is hard to sit still: 1 = Several days Becoming easily annoyed or irritable: 0 = Not at all Feeling afraid as if something awful might happen: 1 = Several days Total JOHN-7 score (0-4 normal; 5-9 mild; 10-14 moderate; 15-21 severe): 5 Source: Developed by Drs. Wyatt Baeza, Yary Celis, Mykel Ryan and colleagues, with an educational cassidy from [employer]. JOHN-7 Assessment Billing JOHN-7 Assessment Tool: JOHN-7 Assessment 14805 Review of Systems Const Denies body aches, Denies chills, Denies fever(s), Denies headache(s) and Denies poor appetite Eyes Reports no additional complaints ENT Denies dizziness and Denies headache(s) Card Denies chest pain, Denies syncope, Denies edema, Denies irregular heart rhythm, Denies lightheadedness and Denies dyspnea Resp Denies dyspnea GI Denies abdominal pain, Denies nausea and Denies vomiting Reports no additional complaints Musc Reports no additional complaints and Denies abnormal gait Skin/Breast Reports system reviewed and no additional complaints, except as documented Neuro Denies abnormal gait, Denies dizziness, Denies syncope and Denies headache(s) Psych Reports no additional complaints Physical exam (Primary Care) Vital Signs: Last Vital Signs Pulse 88 11/18/24 15:34 BP 124/88 11/18/24 15:34 Pulse Ox 100 11/18/24 15:34 BMI result Body Mass Index 27.0 Tobacco/Smoking Status: Tobacco use Status Tobacco use date assessed 11/18/24 11/18/24 15:40 Patient Tobacco Use Status Never used Tobacco 11/18/24 15:40 e-Cigarette/Vaping Use Never Used 11/18/24 15:40 PHQ-9: PHQ-9 Score PHQ-9: Total score 0 11/18/24 16:41 Depression Screening Interpretation: Negative Thrive Assessment: Date of Thrive Assessment Date Thrive assessed 11/18/24 11/18/24 15:40 Currently or been in a relationship where the following occur: No concerns reported Const General: cooperative, healthy appearing, comfortable and no acute distress Orientation/consciousness: patient oriented x3 HENMT Head: Yes normocephalic Ears: hearing grossly normal bilaterally General nose exam: Normal external nose present Eyes General: appearance normal, both eyes and all related structures Conjunctivae: conjunctivae normal Neck Neck: Yes full ROM and Yes no lymphadenopathy Resp Effort & Inspection: normal respiratory effort Auscultation: clear to auscultation bilaterally, no crackles, no rales, no rhonchi and no wheezes Cardio Rate: regular rate Rhythm: regular rhythm Skin General skin exam: no rashes or lesions noted Neuro General: patient oriented x3 Gait exam (Neuro): Normal gait present Extrem General: Yes normal to inspection, Yes full ROM and No edema Psych Affect: normal affect Attitude: cooperative Insight: Good insight present (Psych) Judgement: Good judgement present (Psych) Coding Level of Care Code Est Pt Level 3 (50927) Diagnoses End stage heart failure I50.84 Anxiety F41.9 Depression F32.A Chronic kidney disease N18.9 Lower extremity edema R60.0 Additional Codes JOHN-7 Assessment Billing - JOHN-7 Assessment Tool: JOHN-7 Assessment 94418 ([id number]) PHQ-9 - 73371 - PHQ-9 Billing: Yes ([id number]) Assessment & Plan Assessment & Plan (1) End stage heart failure: Comment: Status post heart transplant 10/2023 Code(s): I50.84 - End stage heart failure Category: Medical Plan: Continue to follow with transplant team. My plan addresses the patient's transplant and associated conditions by ensuring multidisciplinary care coordination with specialists for ongoing assessment and medication management, emphasizing the upkeep of organ function and overall health optimization. Currently on immunosuppression with tacro and prednisone with recent dose increase and plans to follow with 5mg after 3 days. She will continue to follow up with the transplant team in [place] and is scheduled for repeat biopsy next month. (2) Anxiety: Code(s): F41.9 - Anxiety disorder, unspecified Category: Medical Plan: Patient is no longer taking medication and is no longer seeing counselor. She feels her anxiety and depression is well managed at this time without intervention. (3) Depression: Code(s): F32.A - Depression, unspecified Category: Medical Plan: See above. (4) Chronic kidney disease: Code(s): N18.9 - Chronic kidney disease, unspecified Category: Medical Plan: Hemodialysis was discontinued 05/06/2024 advised to continue with daily weights and continue to follow with compliance engineer products. She is continuing to follow with the kidney specialist on an as needed basis and they are monitoring kidney function while on the Tacrolimus. She was advised by the compliance engineer products to follow up only as needed in the we will continue to monitor her kidney levels. (5) Lower extremity edema: Code(s): R60.0 - Localized edema Category: Medical Plan: Lower extremity swelling has improved and she will continue to elevate her legs as needed. Plan During the visit, we discussed the management of heart transplant rejection, including the increased prednisone dosing and the upcoming biopsy. We also reviewed the patient's anxiety management, dyslipidemia treatment with pravastatin and baby aspirin, and the improvement in lower extremity edema. The importance of regular monitoring and follow-up appointments was emphasized, particularly in light of the patient's immunosuppressant therapy and the need for vigilance during flu season. This note was constructed using voice recognition software. While every effort has been made to ensure accuracy and pyridine recovery operator, still areas may have been included sometimes these areas may affect the content or meeting of the given symptoms. Total time spent caring for the patient today was 20 minutes. This includes time spent before the visit reviewing the chart, time spent during the visit, and time spent after the visit and documentation. Patient was informed and verbally consented to the use of an ambient scribe for clinic note documentation during this visit.
--- OUTSIDE RECORDS SUMMARY | 2024-11-18 17:11 | XMS_ITS | Encounter Summary ---
Author Organization [facility] Address [address] [place] [phone] Phone Care Team Providers [employer] Set Up Technician Name Role Phone Andrez Manrique MD Unavailable [phone] Andrez Kahn MD Unavailable [phone] Luca Alfaro MD Unavailable [phone] America Farmer CLINICAL TEAM MANAGER Primary Care Provider Andrez Osullivan MD Unavailable [phone] Petty Almeida PA Primary Care Provide r Encounter Details Date Type Department Care Team (Late st Contact Info) Description 01/29/2024 Procedure Pass [facility] [address] [place] [address] Social History Tobacco Use Types Packs/Day Years Used Date Smoking Tobacco: Never Smokeless Tobacco: Never Alcohol Use Standard Drinks/Week Comments Not Currently 0 (1 standard drink = 0.6 oz pur e alcohol) Education Answer Date Recorded Are you interested in more education? Not on madyson e 07/21/2022 Are you concerned about learning? Not on file 07/21/2022 No 07/21/2022 No 07/21/2022 Food Answer Date Recorded Within the past 6 months we worried whether our food would run out before we got money to buy more. Never True 01/19/2024 Within the past 6 months the food we bought just didn't last and we didn't have enough money to get more. Never True Residential Stability Answer Date Recor ded What is your housing situation today? I have adama dasilva 01/19/2024 How many times have you moved in the past 12 mon ths? One time 01/19/2024 Paying for Meds Answer Date Recorded Do you have trouble paying for medicines? No 01/19/2024 Paying Utility Bills Answer Date Record ed Do you have trouble paying your heating or elect ricity bill? No 01/19/2024 Transportation Answer Date Recorded Has the lack of transportati on kept you from medical appointments or from getting medications? No 01/19/2024 Digital Access Answer Date Recorded No 01/19/2024 Yes 01/19/2024 Do you have reliable internet access at home? Ye s 01/19/2024 Do you have a device (e.g., phone, tablet, computer) with a working camera? Yes 01/19/2024 Intimate Partner Violence Answer Date R ecorded Are you denied basic needs s uch as food, clothing, or medical care? No 01/29/2024 In the past 12 months have y ou been in a relationship with a person who hurts, threatens, or tries to control you? No 01/29/2024 Are you denied basic needs s uch as food, clothing, or medical care? No 01/29/2024 In the past 12 months have y ou been in a relationship with a person who hurts, threatens, or tries to control you? No 01/29/2024 Comments No Sex and Gender Information Value Date Recorded Sex Assigned at Female 01/13/2022 9:57 AM EDT Legal Sex Female 7:53 PM EST Gender Identity Female 01/13/2022 9:57 AM EDT Sexual Orientation Straight 01/13/2022 9: 57 AM EDT documented as of this encounter Functional Status * Calculated C-SSRS Risk Score (Lifetime/Recent) Answer Date of Assessment Author No Risk Indicated 01/29/2024 4:24 PM Patrice Rios RN * [place] Suicide Severity Rating Scale (Screener/Recent Self-Report) Question Answer Date of Assessment Author 1. Wish to be (Past 1 Month) No 01/29/2024 4:24 PM Anamika Rios RN 2. Non-Specific Active Suicidal Thoughts (Past 1 Month) No 01/29/2024 4:24 PM Anamika Rios RN 6. Suicidal Behavior (Lifetime) No 01/29/2024 4:24 PM Anamika Rios RN documented as of this encounter Plan of Treatment Upcoming Encounters Date Type Department Care Team (Late st Contact Info) Description 11/28/2024 10:20 AM EDT Appointment [facility] Skeletal Health/Osteoporosis Ctr. and Bone Density Unit [address] [place] [address] Renetta Rosenbaum, PROCESS CONTROL MANAGER [address] [place] [address] [email or web address] 12/09/2024 8:00 AM EDT Office Visit [facility] Cardiac Transplant [address] [place] [address] Cornelio Dunham MD [address] [facility] [place] [address] [email or web address] 12/09/2024 9:00 AM EDT Office Visit [facility] Cardiac Transplant [address] [place] [address] Unknown, Natalie, 01/27/2025 4:40 PM EST Office Visit [facility] [address] [facility] [place] [address] Jose Hidalgo MD, MPH [address] [place] [address] [email or web address] documented as of this encounter Visit Diagnoses Not on file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 CDiff-Risk 01/29/2024 01/29/2024 01/29/2024 4:39 PM EST CoV-Risk Comment:Per note documentation 01/29/2024 01/29/2024 6:12 PM EST CDiff-Risk 03/13/2024 03/13/2024 03/14/2024 1:26 PM EST CDiff-Risk 03/20/2024 03/20/2024 03/21/2024 9:24 AM EST CDiff-Risk 03/27/2024 03/27/2024 03/27/2024 1:11 PM EST Assessment Noted Time PHQ-2 Depression Total Score: 0 02/24/20 4:08 PM EST documented as of this encounter Care Teams [employer] Set Up Technician Relationship Specialty Start Date End Date America Farmer NP [address] [place] [address] [email or web address] PCP - General Nurse Practitioner 06/06/23 07/28/24 Petty Almeida PA [address] [place] [id number] PCP - General Physician Heating And Air Conditioning Mechanic 07/29/24 Andrez Manrique MD [address] [place] [address] [place] [address] [email or web address] Heart Failure [facility] Transplant Cardiology 08/31/22 Andrez Kahn MD [address] [place] [id number] Consulting Provider Cardiology 08/31/22 Luca Alfaro MD [address] [place] [id number] [facility] Pediatric Cardiology 08/31/22 Andrez Osullivan MD [address] [place] [address] [email or web address] Pediatric Cardiology 02/05/24 documented as of this encounter Additional Source Comments The information contained in this document represents components of the legal health record. It is not the complete legal health record.[facility]
--- OUTSIDE RECORDS SUMMARY | 2024-11-18 17:11 | XMS_ITS | Encounter Summary ---
Author Organization [facility] Address [address] [place] [address] [place] [address] Phone Care Team Providers Care Side Hemmer Name Role Phone Loly Brush MD Primary Care Provider [phone] Andrez Manrique MD Unavailable Andrez Kahn MD Unavailable [phone] Luca Alfaro MD Unavailable [phone] America Farmer NP Primary Care Provider Andrez Osullivan MD Unavailable [phone] Petty Almeida Primary Care Provide r Encounter Details Date Type Department Care Team (Latest Contact Info) Description 09/08/2020 Transcribe Orders [facility] Echocardiography [address] [place] [address] Cinthia Herr 75 [place] [address] [email or web address] Cardiac arrhythmia, unspecified cardiac arrhythmia type (Primary Dx) Social History Tobacco Use Types Packs/Day Years Used Date Smoking Tobacco: Never Smokeless Tobacco: Never Comments No Sex and Gender Information Value Date Recorded Sex Assigned at Female 01/13/2022 9:57 AM EDT Legal Sex Female 7:53 PM EST Gender Identity Female 01/13/2022 9:57 AM EDT Sexual Orientation Straight 01/13/2022 9: 57 AM EDT documented as of this encounter Plan of Treatment Upcoming Encounters Date Type Department Care Team (Late st Contact Info) Description 11/28/2024 10:20 AM EDT Appointment [facility] Skeletal Health/Osteoporosis Ctr. and Bone Density Unit [address] [place] [address] Renetta Rosenbaum, RAG CUTTING MACHINE TENDER [address] [place] [address] [email or web address] 12/09/2024 8:00 AM EDT Office Visit [facility] Cardiac Transplant [address] [place] [address] Cornelio Dunham MD 75 [facility] [place] [address] [email or web address] 12/09/2024 9:00 AM EDT Office Visit [facility] Cardiac Transplant [address] [place] [address] Unknown, Natalie, 01/27/2025 4:40 PM EST Office [facility] Medical Specialties [address] [address] Jose Hidalgo MD, MPH 75 [place] [address] [email or web address] documented as of this encounter Procedures Procedure Name Priority Date/Time Associated Diagnosis Comments ECG 12-LEAD Routine 09/05/2020 9:22 AM EDT Cardiac arrhythmia, unspecified cardiac arrhythmia type documented in this encounter Results * ECG 12-LEAD (09/05/2020 9:22 AM EDT) Systolic Blood Pressure 98 mmHg MUSE_B[facility] Diastolic Blood Pressure 60 mmHg [facility] Ventricular Rate EKG/MIN 76 BPM [facility] Atrial Rate 76 BPM [facility] NM Interval 210 ms [facility] QRS Duration 164 ms [facility] QT Interval 448 ms [facility] QTC Interval 504 ms [facility] P [place] 76 degrees M[facility] R Wave [place] -75 degrees M[facility] T Wave [place] 101 degrees M[facility]_B[facility] 09/05/2020 9:22 AM EDT Narrative MUSE_B[facility] - 09/08/2020 5:10 PM EDT Sinus rhythm with 1st degree A-V block Left atrial enlargement Left axis deviation Right bundle branch block Left ventricular hypertrophy with repolarization abnormality Lateral infarct , age undetermined Inferior myocardial infarction (cited on or before 25-DEC-2013) Abnormal ECG When compared with ECG of 31-AUG-2020 20:17, Sinus rhythm has replaced Electronic atrial pacemaker Wali Law PA-C ECG ORDERABLES Final R esult [facility]USE_ELEAZAR documented in this encounter Visit Diagnoses Diagnosis Cardiac arrhythmia, unspecified cardiac arrhythmia type- Primary documented in this encounter Additional Health Concerns Infection Onset Date Last Indicated Resolved Time CoV-Risk Comment:Per note documentation 02/08/2023 02/08/2023 3 2:48 PM EST CoV-Risk Comment:Per note documentation 03/28/2023 03/28/2023 7:30 AM EST CoV-Risk Comment:Per note documentation 06/06/2023 06/06/2023 8:14 PM EDT CoV-Risk Comment:Per note documentation 10/23/2023 10/23/2023 7:03 AM EDT CDiff-Risk 11/13/2023 11/13/2023 11/14/2023 9:39 AM EDT 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 Pulmonary imaging without evidence of TB, alternative etiology for respiratory symptoms. Reviewed with gregory Soliz to resolve TB Risk flag. 12/20/2023 12/20/2023 12/26/2023 5:13 PM E DT CoV-Risk Comment:Per note documentation 01/09/2024 01/09/2024 10:54 PM EDT CDiff-Risk 01/23/2024 01/24/2024 01/24/2024 11:4 3 AM EDT CDiff-Risk 01/29/2024 01/29/2024 01/29/2024 4:39 PM EST CoV-Risk Comment:Per note documentation 01/29/2024 01/29/2024 6:12 PM EST CDiff-Risk 03/13/2024 03/13/2024 03/14/2024 1:26 PM EST CDiff-Risk 03/20/2024 03/20/2024 03/21/2024 9:24 AM EST CDiff-Risk 03/27/2024 03/27/2024 03/27/2024 1:11 PM EST documented as of this encounter Care Teams Side Hemmer Relationship Specialty Start Date End Date Loly Brush MD [address] [place] [address] PCP - General 07/31/14 06/05/23 America Farmer NP [address] [place] [address] [email or web address] [employer] PCP - General Nurse Practitioner 06/06/23 07/28/24 Petty Almeida PA [address] [place] [address] [address] PCP - General Physician Inclusion Paraeducator 07/29/24 Andrez Manrique MD [address] [place] [address] [email or web address]. du Advanced Heart Failure and Transplant Cardiology 08/31/22 Andrez Kahn MD [address] [place] [address] [facility] [email or web address] Consulting Provider Cardiology 08/31/22 Luca Alfaro MD [address] [place] [address] [email or web address] Pediatric Cardiology 08/31/22 Andrez Osullivan MD [address] [place] [address] [email or web address] Pediatric Cardiology 02/05/24 documented as of this encounter Additional Source Comments The information contained in this document represents components of the legal health record. It is not the complete legal health record.[facility]
--- OUTSIDE RECORDS SUMMARY | 2024-11-18 17:11 | XMS_ITS | Encounter Summary ---
Author Organization [facility] Address [address] [facility] [address] [place] [address] Phone Care Team Providers Care Crime Scene Examiner Name Role Phone Andrez Manrique MD Unavailable [phone] Andrez Kahn MD Unavailable [phone] Luca Alfaro MD Unavailable [phone] America Farmer POCKETS AND PIECES NECKTIE OPERATOR Primary Care Provider Andrez Oslulivan MD Unavailable [phone] Petty Almeida PA Primary Care Provide r Encounter Details Date Type Department Care Team (Late st Contact Info) Description 01/29/2024 Procedure Pass [facility] and Women's Radiology [address] [place] [address] Social History Tobacco Use Types Packs/Day Years [...] 01/29/2024 4:24 PM Patrice Rios RN * [place] Suicide Severity Rating Scale (Screener/Recent Self-Report) Question [...] Info) Description 11/28/2024 10:20 AM EDT Appointment [facility] Skeletal Health/Osteoporosis Ctr. and Bone Density Unit [address] [place] [address] Renetta Rosenbaum, MANAGER FIELD [address] [place] [address] [email or web address] 12/09/2024 8:00 AM EDT Office Visit [facility] Cardiac Transplant [address] [place] [address] Cornelio Dunham MD 75 [facility] [place] [address] [email or web address] 12/09/2024 9:00 AM EDT Office Visit [facility] Cardiac Transplant [address] [place] [address] Unknown, Natalie, 01/27/2025 4:40 PM EST Office Visit [facility] Medical Specialties 45 [facility]2 [place] [address] Jose Hidalgo MD, MPH 75 [facility] [place] [address] [email or web address] documented as of this encounter Visit Diagnoses [...] documented as of this encounter Care Teams Crime Scene Examiner Relationship Specialty Start Date End Date America Farmer NP 5 [place] [address] [email or web address] PCP - General Nurse Practitioner 06/06/23 07/28/24 Petty Almeida PA [address] [place] [address] PCP - General Physician Shop Mechanic 07/29/24 Andrez Manrique MD [address] [place] [address] [place] [address] [email or web address] du Advanced Heart Failure and Transplant Cardiology 08/31/22 Andrez Kahn MD [address] [place] [address] Consulting Provider Cardiology 08/31/22 Luca Alfaro MD [address] [place] [address] [facility] Pediatric Cardiology 08/31/22 Andrez Osullivan MD [address] [place] [address] [email or web address] Pediatric Cardiology 02/05/24 documented as of this encounter Additional Source Comments The information contained in this document represents components of the legal health record. It is not the complete legal health record.[facility]
--- OUTSIDE RECORDS SUMMARY | 2024-11-18 17:11 | XMS_ITS | Encounter Summary ---
Author Organization [facility] Address [address] [facility] [address] [place] [address] Phone Care Team Providers Care Rn Disease Management Name Role Phone Andrez Manrique MD Unavailable Andrez Kahn MD Unavailable [phone] Luca Alfaro MD Unavailable [phone] America Farmer DIRECTOR HOUSEKEEPING Primary Care Provider Andrez Osullivan MD Unavailable [phone] Petty Almeida Primary Care Provide r Encounter Details Date Type Department Care Team (Late st Contact Info) Description 05/09/2024 Procedure Pass [facility] and Women's Radiology [address] [place] [address] Social History Tobacco Use Types Packs/Day Years [...] high school, GED, job training, learning the [place] language, technical skills, or developing parenting skills)? [...] as food, clothing, or medical care? No 04/10/2024 In the past 12 months have y ou been in a relationship with a person who hurts, threatens, or tries to control you? No 04/10/2024 Are you denied basic needs s uch as food, clothing, or medical care? No 04/10/2024 In the past 12 months have y ou been in a relationship with a person who hurts, threatens, or tries to control you? No 04/10/2024 Comments No Sex and Gender Information Value Date Recorded Sex Assigned at Female 01/13/2022 9:57 AM EDT Legal Sex Female 7:53 PM EST Gender Identity Female 01/13/2022 9:57 AM EDT Sexual Orientation Straight 01/13/2022 9: 57 AM EDT documented as of this encounter Plan of Treatment Upcoming Encounters Date Type Department Care Team (Late st Contact Info) Description 11/28/2024 10:20 AM EDT Appointment [facility] Skeletal Health/Osteoporosis Ctr. and Bone Density Unit [address] [place] [address] Renetta Rosenbaum, MARVIN [address] [place] [address] [email or web address] 12/09/2024 8:00 AM EDT Office Visit [facility] Cardiac Transplant 70 [place] [address] Corneilo Dunham MD 75 [facility] [place] [address] [email or web address] 12/09/2024 9:00 AM EDT Office Visit [facility] Cardiac Transplant [address] [place] [address] Unknown, Natalie, 01/27/2025 4:40 PM EST Office Visit [facility] Medical Specialties [address] [address] [place] [address] Jose Hidalgo MD, MPH 75 [facility] [place] [address] [email or web address] documented as of this encounter Visit Diagnoses Not on file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. du Advanced Heart Failure and Transplant Cardiology 08/31/22 Andrez Kahn MD [address] [place] [address] [email or web address] Consulting Provider Cardiology 08/31/22 Lcua Alfaro MD [address] [place] [address] [email or web address] Pediatric Cardiology 08/31/22 Andrez Osullivan MD [address] [place] [address] [email or web address]. [facility] Pediatric Cardiology 02/05/24 documented as of this encounter Additional Source Comments The information contained in this document represents components of the legal health record. It is not the complete legal health record.[facility]"
--- OUTSIDE RECORDS SUMMARY | 2024-11-18 17:11 | XMS_ITS | Encounter Summary ---
Author Organization [facility] Address [address] [facility] [address] [place] [address] Phone Care Team Providers Care Electrocardiograph Operator Name Role Phone Andrez Manrique MD Unavailable Andrez Kahn MD Unavailable Luca Alfaro MD Unavailable [phone] America Farmer DISTANCE EDUCATION COORDINATOR Primary Care Provider Andrez Osullivan MD Unavailable [phone] Petty Almeida PA Primary Care Provide r Encounter Details Date Type Department Care Team (Late st Contact Info) Description 01/19/2024 Prep for Surgery [facility] Cardiac Transplant 70 [place] [address] Leah Faulkner, MAX [address] [place] [address] [email or web address] Social History Tobacco Use Types Packs/Day Years [...] have you moved in the past 12 mon? One time 01/19/2024 Paying for Meds Answer [...] computer) with a working camera? Yes 01/19/2024 Comments No Sex and Gender Information Value Date Recorded Sex Assigned at Female 01/13/2022 9:57 AM EDT Legal Sex Female 7:53 PM EST Gender Identity Female 01/13/2022 9:57 AM EDT Sexual Orientation Straight 01/13/2022 9: 57 AM EDT documented as of this encounter Functional Status * Calculated C-SSRS Risk Score (Lifetime/Recent) Answer Date of Assessment Author No Risk Indicated 01/19/2024 6:50 PM EDT Catrina Schwartz RN * [place] Suicide Severity Rating Scale (Screener/Recent Self-Report) Question Answer Date of Assessment Author 1. Wish to be (Past 1 Month) No 01/19/2024 6:50 PM EDT Catrina Schwartz RN 2. Non-Specific Active Suicidal Thoughts (Past 1 Month) No 01/19/2024 6:50 PM EDT Catrina Schwartz RN 6. Suicidal Behavior (Lifetime) No 01/19/2024 6:50 PM EDT Catrina Schwartz RN documented as of this encounter Plan of Treatment Upcoming Encounters Date Type Department Care Team (Late st Contact Info) Description 11/28/2024 10:20 AM EDT Appointment [facility] Skeletal Health/Osteoporosis Ctr. and Bone Density Unit [address] [place] [address] Renetta Rosenbaum, MARVIN [address] [place] [address] [email or web address] 12/09/2024 8:00 AM EDT Office Visit [facility] Cardiac Transplant [address] [place] [address] Cornelio Dunham MD 75 [facility] [place] [address] [email or web address] 12/09/2024 9:00 AM EDT Office Visit [facility] Cardiac Transplant 70 [place] [address] Unknown, Natalie, 01/27/2025 4:40 PM EST Office Visit [facility] Specialties 45 [facility]2 [place] [address] Jose Hidalgo MD, MPH 75 [facility] [place] [address] [email or web address] documented as of this encounter Visit Diagnoses Not on file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 du Advanced Heart Failure and Transplant Cardiology 08/31/22 Andrez Kahn MD [address] [place] [address] Consulting Provider Cardiology 08/31/22 Luca Alfaro MD [address] [place] [address] [facility] Pediatric Cardiology 08/31/22 Andrez Osullivan MD [address] [place] [address] [email or web address]. [facility] Pediatric Cardiology 02/05/24 documented as of this encounter Additional Source Comments The information contained in this document represents components of the legal health record. It is not the complete legal health record.[facility]
--- OUTSIDE RECORDS SUMMARY | 2024-11-18 17:11 | XMS_ITS | Encounter Summary ---
Author Organization [facility] Address [address] [facility] [address] [place] [address] Phone Care Team Providers Care Senior Corporate Accountant Name Role Phone Andrez Manrique MD Unavailable [phone] Andrez Kahn MD Unavailable [phone] Luca Alfaro MD Unavailable America Farmer [facility] Primary Care Provider Andrez Osullivan MD Unavailable [phone] Petty Almeida PA Primary Care Provide r Encounter Details Date Type Department Care Team (Late st Contact Info) Description 01/22/2024 Procedure Pass [facility] Cardiac Litigator [address] [place] [address] Social History Tobacco Use Types Packs/Day Years [...] Info) Description 11/28/2024 10:20 AM EDT Appointment [facility] Skeletal Health/Osteoporosis Ctr. and Bone Density Unit [address] [place] [address] Renetta Rosenbaum CNP [address] [place] [address] [email or web address] [email or web address] 12/09/2024 8:00 AM EDT Office Visit [facility] Cardiac Transplant [address] [place] [address] Cornelio Dunham MD 75 [facility] [place] [address] [email or web address] 12/09/2024 9:00 AM EDT Office Visit [facility] Cardiac Transplant [address] [place] [address] Natalie, MD Natalie 01/27/2025 4:40 PM EST Office Visit [facility] Specialties [address] [facility] ASB2-2 [place] [address] Jose Hidalgo MD, MPH 75 [facility] [place] [address] [email or web address] documented as of this encounter Visit Diagnoses [...] documented as of this encounter Care Teams Senior Corporate Accountant Relationship Specialty Start Date End Date America Farmer NP [address] [place] [address] [email or web address] PCP - General Nurse Practitioner 06/06/23 07/28/24 Petty Almeida PA [address] [place] [address] [place] [address] PCP - General Physician Frame Trimmer 07/29/24 Andrez Manrique MD [address] [place] [address] [email or web address] du Advanced Heart Failure and Transplant Cardiology 08/31/22 Andrez Kahn MD [address] [place] [address] [email or web address] Consulting Provider Cardiology 08/31/22 Luca Alfaro MD [address] [place] [address] [email or web address] Pediatric Cardiology 08/31/22 Andrez Osullivan MD [address] [place] [address] [email or web address]. [facility] Pediatric Cardiology 02/05/24 documented as of this encounter Additional Source Comments The information contained in this document represents components of the legal health record. It is not the complete legal health record.[facility]
--- OUTSIDE RECORDS SUMMARY | 2024-11-18 17:11 | XMS_ITS | Encounter Summary ---
Author Organization [facility] Address [address] [facility] [address] [place] [address] Phone Care Team Providers Care Real Estate Transaction Coordinator Name Role Phone Andrez Manrique MD Unavailable [phone] Andrez Kahn MD Unavailable [phone] Luca Alfaro MD Unavailable [phone] Andrez Osullivan MD Unavailable [phone] Petty Almeida Primary Care Provide r Encounter Details Date Type Department Care Team (Late st Contact Info) Description 08/05/2024 Hospital Encounter [facility] Endoscopy Department [address] [place] [address] Social History Tobacco Use Types Packs/Day Years [...] high school, GED, job training, learning the Sammarinese language, technical skills, or developing parenting skills)? [...] Info) Description 11/28/2024 10:20 AM EDT Appointment [facility] Skeletal Health/Osteoporosis Ctr. and Bone Density Unit 221 [place] [address] Renetta Rosenbaum, MARVIN 75 [place] [address] [email or web address] BRIG[facility]TE 12/09/2024 8:00 AM EDT Office Visit [facility] Cardiac Transplant 70 [place] [address] Cornelio Dunham MD 75 [facility] [place] [address] [email or web address] 12/09/2024 9:00 AM EDT Office Visit [facility] Cardiac Transplant 70 [place] [address] Unknown, Natalie, 01/27/2025 4:40 PM EST Office Visit [facility] Medical Specialties [address] [address] Jose Hidalgo MD, MPH 75 [place] [address] [email or web address]@[email or web address] documented as of this encounter Visit Diagnoses Not on file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 Assessment Noted Time PHQ-2 Depression Total Score: 0 02/24/20 22 4:08 PM EST documented as of this encounter Care Teams Real Estate Transaction Coordinator Relationship Specialty Start Date End Date Petty Almeida PA [address] [place] [address] [place] [address] PCP - General Physician Lead Pastor 07/29/24 Andrez Manrique MD [address] [place] [address] [place] [address] [email or web address] u Advanced Heart Failure and Transplant Cardiology 08/31/22 Andrez Kahn MD [address] [place] [address] [email or web address] Consulting Provider Cardiology 08/31/22 Luca Alfaro MD [address] [place] [address] [email or web address] Pediatric Cardiology 08/31/22 Andrez Osullivan MD [address] [place] [address] [email or web address] Pediatric Cardiology 02/05/24 documented as of this encounter Additional Source Comments The information contained in this document represents components of the legal health record. It is not the complete legal health record.[facility]
--- OUTSIDE RECORDS SUMMARY | 2024-11-18 17:11 | XMS_ITS | Encounter Summary ---
Author Organization [facility] Address [address] [place] [address] Phone Care Team Providers Care Hr Manager Name Role Phone Andrez Manrique MD Unavailable [phone] Andrez Kahn MD Unavailable [phone] Luca Alfaro MD Unavailable [phone] America Farmer PODODERMATOLOGIST Primary Care Provider Andrez Osullivan MD Unavailable [phone] Petty Almeida Primary Care Provide r Encounter Details Date Type Department Care Team (Late st Contact Info) Description 05/09/2024 Procedure Pass [facility] Women's Radiology 70 [place] [address] Social History Tobacco Use Types Packs/Day Years [...] high school, GED, job training, learning the Paraguayan language, technical skills, or developing parenting skills)? [...] Info) Description 11/28/2024 10:20 AM EDT Appointment [facility] Skeletal Health/Osteoporosis Ctr. and Bone Density Unit 221 [place] [address] Renetta Rosenbaum, MARVIN 75 [place] [address] [email or web address] 12/09/2024 8:00 AM EDT Office Visit [facility] Cardiac Transplant 70 [place] [address] Cornelio Dunham MD 75 [facility] [place] [address] [email or web address] 12/09/2024 9:00 AM EDT Office Visit [facility] Cardiac Transplant 70 [place] [address] Unknown, Natalie, 01/27/2025 4:40 PM EST Office Visit [facility] Medical Specialties [address] [address] [place] [address] Jose Hidalgo MD, MPH 75 [facility] [place] [address] [email or web address] documented as of this encounter Visit Diagnoses Not on file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 du Advanced Heart Failure and Transplant Cardiology 08/31/22 Andrez Kahn MD [address] [place] [address] [email or web address] Consulting Provider Cardiology 08/31/22 Luca Alfaro MD [address] [place] [address] [email or web address] Pediatric Cardiology 08/31/22 Andrez Osullivan MD [address] [place] [address] GINNY@[email or web address]. [facility] Pediatric Cardiology 02/05/24 documented as of this encounter Additional Source Comments The information contained in this document represents components of the legal health record. It is not the complete legal health record.[facility]
--- OUTSIDE RECORDS SUMMARY | 2024-11-18 17:11 | XMS_ITS | Encounter Summary ---
Author Organization [facility] Address [address] [facility] [address] [place] [address] Phone Care Team Providers Care Geotechnicial Properties Technician Name Role Phone Andrez Manrique MD Unavailable [phone] Andrez Kahn MD Unavailable [phone] Luca Alfaro MD Unavailable America Farmer AED TRAINER Primary Care Provider Andrez Osullivan MD Unavailable [phone] Petty Almeida PA Primary Care Provide r Encounter Details Date Type Department Care Team (Late st Contact Info) Description 01/30/2024 Procedure Pass [facility] Cross Sectional Interventional Radiology [address] [place] [address] Social History Tobacco Use Types Packs/Day Years [...] Info) Description 11/28/2024 10:20 AM EDT Appointment [facility] Skeletal Health/Osteoporosis Ctr. and Bone Density Unit 221 [place] [address] Renetta Rosenbaum, QUICK TECHNICIAN 75 [place] [address] [email or web address]. BR[place]TE 12/09/2024 8:00 AM EDT Office Visit [facility] Cardiac Transplant 70 [place] [address] Cornelio Dunham MD 75 [facility] [place] [address] [email or web address] 12/09/2024 9:00 AM EDT Office Visit [facility] Cardiac Transplant 70 [place] [address] Natalie Estrada MD 01/27/2025 4:40 PM EST Office Visit [facility] [address] [address] Jose Hidalgo MD, MPH 75 [place] [address] [email or web address] documented as of this encounter Visit Diagnoses Not on file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 CoV-Risk Comment:Per note documentation 01/29/2024 01/29/2024 6:12 PM EST CDiff-Risk 03/13/2024 03/13/2024 03/14/2024 1:26 PM EST CDiff-Risk 03/20/2024 03/20/2024 03/21/2024 9:24 AM EST CDiff-Risk 03/27/2024 03/27/2024 03/27/2024 1:11 PM EST Assessment Noted Time PHQ-2 Depression Total Score: 0 02/24/20 4:08 PM EST documented as of this encounter Care Teams Geotechnicial Properties Technician Relationship Specialty Start Date End Date America Farmer NP 575 [place] [address] [email or web address] PCP - General Nurse Practitioner 06/06/23 07/28/24 Petty Almeida PA [address] [place] [address] PCP - General Physician Car Repairman 07/29/24 Andrez Manrique MD [address] [place] [address] [place] [address] [email or web address]. du Advanced Heart Failure and Transplant Cardiology 08/31/22 Andrez Kahn MD [address] [address] [facility] Consulting Provider Cardiology 08/31/22 Luca Alfaro MD [address] [place] [address] [facility] Pediatric Cardiology 08/31/22 Andrez Osullivan MD [address] [place] [address] GINNY@[facility].[place]. [facility] Pediatric Cardiology 02/05/24 documented as of this encounter Additional Source Comments The information contained in this document represents components of the legal health record. It is not the complete legal health record.[facility]
--- OUTSIDE RECORDS SUMMARY | 2024-11-18 17:11 | XMS_ITS | Encounter Summary ---
Author Organization [facility] Address [address] [facility] [address] [place] [address] Phone Care Team Providers Care Burning Supervisor Name Role Phone Andrez Manrique MD Unavailable [phone] Andrez Kahn MD Unavailable Luca Alfaro MD Unavailable [phone] Andrez Osullivan MD Unavailable [phone] Petty Almeida Primary Care Provide r Encounter Details Date Type Department Care Team (Late st Contact Info) Description 08/05/2024 Procedure Pass [facility] Endoscopy Department [address] [place] [address] Social History Tobacco Use Types Packs/Day Years [...] high school, GED, job training, learning the Solomon Islander language, technical skills, or developing parenting [...] Description 11/28/2024 10:20 AM EDT Appointment [facility] Skeletal Health/Osteoporosis Ctr. and Bone Density Unit 221 [place] [address] Renetta Rosenbaum, MARVIN 75 [place] [address] [email or web address] 12/09/2024 8:00 AM EDT Office Visit [facility] Cardiac Transplant 70 [place] [address] Cornelio Dunham MD 75 [facility] [place] [address] [email or web address] 12/09/2024 9:00 AM EDT Office Visit [facility] Cardiac Transplant 70 [place] [address] Unknown, Natalie, 01/27/2025 4:40 PM EST Office Visit [facility] Medical Specialties [address] [address] Jose Hidalgo MD, MPH 75 [place] [address] [email or web address] documented as of this encounter Visit Diagnoses Not on file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 Consulting Provider Cardiology 08/31/22 Luca Alfaro MD [address] [place] [address] [facility] Pediatric Cardiology 08/31/22 Andrez Osullivan MD [address] [place] [address] [email or web address] Pediatric Cardiology 02/05/24 documented as of this encounter Additional Source Comments The information contained in this document represents components of the legal health record. It is not the complete legal health record.[facility]
--- OUTSIDE RECORDS SUMMARY | 2024-11-18 17:11 | XMS_ITS | Encounter Summary ---
Author Organization [facility] Address [address] [facility] [address] [place] [address] Phone Care Team Providers Care Hospital Admissions Officer Name Role Phone Andrez Manrique MD Unavailable [phone] Andrez Kahn MD Unavailable Luca Alfaro MD Unavailable America Farmer INFANTRY OFFICER Primary Care Provider Andrez Osullivan MD Unavailable [phone] Petty Almeida PA Primary Care Provide r Encounter Details Date Type Department Care Team (Late st Contact Info) Description 01/22/2024 Procedure Pass [facility] [address] [place], [place] [phone] Social History Tobacco Use Types Packs/Day Years [...] Info) Description 11/28/2024 10:20 AM EDT Appointment [facility] Skeletal Health/Osteoporosis Ctr. and Bone Density Unit 221 [place] [address] Renetta Rosenbaum CNP 75 [place] [address] [email or web address] [email or web address] 12/09/2024 8:00 AM EDT Office Visit [facility] Cardiac Transplant 70 [place] [address] Cornelio Dunham MD 75 [facility] [place] [address] [email or web address] 12/09/2024 9:00 AM EDT Office Visit [facility] Cardiac Transplant 70 [place] [address] Natalie, MD Natalie 01/27/2025 4:40 PM EST [facility] Visit [facility] Special[facility] 45 [facility] ASB2-2 [place] [address] Jose Hidalgo MD, MPH 75 [facility] [place] [address] LUCERO@[facility] documented as of this encounter Visit Diagnoses [...] documented as of this encounter Care Teams Hospital Admissions Officer Relationship Specialty Start Date End Date America Farmer NP 575 [place] [address] [email or web address] PCP - General Nurse Practitioner 06/06/23 07/28/24 Petty Almeida PA [address] [place] [address] [place] [address] PCP - General Physician Water Plant Pump Operator Supervisor 07/29/24 Andrez Manrique MD [address] [place] [address] [email or web address]. du Advanced Heart Failure and Transplant Cardiology 08/31/22 Andrez Kahn MD [address] [place] [address] [facility] Consulting Provider Cardiology 08/31/22 Luca Alfaro MD [address] [place] [address] [email or web address] Pediatric Cardiology 08/31/22 Andrez Osullivan MD [address] [place] [address] GINNY@[facility] Pediatric Cardiology 02/05/24 documented as of this encounter Additional Source Comments The information contained in this document represents components of the legal health record. It is not the complete legal health record.[facility]
--- OUTSIDE RECORDS SUMMARY | 2024-11-18 17:11 | XMS_ITS | Encounter Summary ---
Author Organization [facility] Address [address] [facility] [address] [place] [address] Phone Care Team Providers Care Lambskin Trimmer Name Role Phone Andrez Manrique MD Unavailable [phone] Andrez Kahn MD Unavailable Luca Alfaro MD Unavailable America Farmer INTERVENTIONIST Primary Care Provider Andrez Osullivan MD Unavailable [phone] Petty Almeida PA Primary Care Provide r Encounter Details Date Type Department Care Team (Late st Contact Info) Description 01/17/2024 Procedure Pass [facility] Periop [address] [place] [address] Social History Tobacco Use Types Packs/Day Years [...] 6:50 PM EDT Catrina Schwartz RN * [place] Suicide Severity Rating Scale (Screener/Recent Self-Report) Question [...] Upcoming Encounters Date Type Department Care Team (Benedicto Contact Info) Description 11/28/2024 10:20 AM EDT Appointment [facility] Skeletal Health/Osteoporosis Ctr. and Bone Density Unit 221 [place] [address] Renetta Rosenbaum, MARVIN 75 [place] [address] [email or web address] 12/09/2024 8:00 AM EDT Office Visit [facility] Cardiac Transplant 70 [place] [address] Cornelio Dunham MD 75 [facility] [place] [address] [email or web address] 12/09/2024 9:00 AM EDT Office Visit [facility] Cardiac Transplant 70 [place] [address] Unknown, Natalie, 01/27/2025 4:40 PM EST Office Visit [facility] Medical Specialties 45 [facility] [place] [address] Jose Hidalgo MD, MPH 75 [place] [address] LUCERO@[email or web address] documented as of this encounter Visit Diagnoses [...] documented as of this encounter Care Teams Lambskin Trimmer Relationship Specialty Start Date End Date America Farmer NP [address] [place] [phone] [email or web address] NanoSteellutheran [email or web address] PCP - General Nurse Practitioner 06/06/23 07/28/24 Petty Almeida PA [address] [place] [address] PCP - General Physician Manager Android 07/29/24 Andrez Manrique MD [address] [place] [address] [place] [address] [email or web address]. du Advanced Heart Failure and Transplant Cardiology 08/31/22 Andrez Kahn MD [address] [place] [address] [facility]nsad[email or web address] Consulting Provider Cardiology 08/31/22 Luca Alfaro MD [address] [place] [address] [email or web address] Pediatric Cardiology 08/31/22 Andrez Osullivan MD [address] [place] [address] GINNY@[facility]. [facility] Pediatric Cardiology 02/05/24 documented as of this encounter Additional Source Comments The information contained in this document represents components of the legal health record. It is not the complete legal health record.[facility]
--- OUTSIDE RECORDS SUMMARY | 2024-11-18 17:12 | XMS_ITS | Encounter Summary ---
Author Organization [facility] Address [address] [place] [address] Phone Care Team Providers Care Octave Board Assembler Name Role Phone Andrez Manrique MD Unavailable [phone] Andrez Kahn MD Unavailable [phone] Luca Alfaro MD Unavailable [phone] America Farmer ELECTROPLATER APPRENTICE Primary Care Provider Andrez Osullivan MD Unavailable [phone] Petty lAmeida PA Primary Care Provide r Encounter Details Date Type Department Care Team (Late st Contact Info) Description 05/31/2024 Procedure Pass [facility] and Women'[address] [address] Social History Tobacco Use Types Packs/Day Years [...] high school, GED, job training, learning the Estonian language, technical skills, or developing parenting skills)? [...] Info) Description 11/28/2024 10:20 AM EDT Appointment [facility] Skeletal Health/Osteoporosis Ctr. and Bone Density Unit [address] [place] [address] Renetta Rosenbaum, TELEPHONE SERVICES SALES REPRESENTATIVE 75 [place] [address] [email or web address] 12/09/2024 8:00 AM EDT Office Visit [facility] Cardiac Transplant 70 [place] [address] Cornelio Dunham MD 75 [facility] [place] [address] 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. du Advanced Heart Failure and Transplant Cardiology 08/31/22 Andrez Kahn MD [address] [place] [address] [facility] Consulting Provider Cardiology 08/31/22 Luca Alfaro MD [address] [place] [address] [facility] Pediatric Cardiology 08/31/22 Andrez Osullivan MD [address] [place] [address] GINNY@[facility].[place]. [facility] Pediatric Cardiology 02/05/24 documented as of this encounter Additional Source Comments The information contained in this document represents components of the legal health record. It is not the complete legal health record.[facility]
--- OUTSIDE RECORDS SUMMARY | 2024-11-18 17:12 | XMS_ITS | Encounter Summary ---
Author Organization [facility] Address [address] [place] [address] Phone Care Team Providers Care Ecotherapist Name Role Phone Loly Brush MD Primary Care Provider [phone] Andrez Manrique MD Unavailable Andrez Kahn MD Unavailable Luca Alfaro MD Unavailable [phone] America Farmer NP Primary Care Provider Andrez Osullivan MD Unavailable [phone] Petty Almeida Primary Care Provide r Encounter Details Date Type Department Care Team (Late st Contact Info) Description 09/03/2020 Procedure Pass [facility] Radiology [address] [place], [place] [id number] Social History Tobacco Use Types Packs/Day Years [...] Info) Description 11/28/2024 10:20 AM EDT Appointment [facility] Skeletal Health/Osteoporosis Ctr. and Bone Density Unit [address] [place] [address] Renetta Rosenbaum, OPERATIONS RESEARCH ENGINEER [address] [place] [address] [email or web address] 12/09/2024 8:00 AM EDT Office Visit [facility] Cardiac Transplant [address] [place] [address] Cornelio Dunham MD 75 [facility] [place] [address] [email or web address] 12/09/2024 9:00 AM EDT Office Visit [facility] Cardiac Transplant 70 [place] [address] Unknown, Unknown, 01/27/2025 4:40 PM EST Office Visit [facility] Specialties [address] [address] Jose Hidalgo MD, MPH 75 [place] [address] [email or web address] documented as of this encounter Visit Diagnoses Not on filedocumented in this encounter Additional Health Concerns Infection Onset Date Last Indicated Resolved Time CoV-Risk Comment:Per note documentation 02/08/2023 02/08/2023 3 2:48 PM EST CoV-Risk Comment:Per note documentation 03/28/2023 03/28/2023 4 7:30 AM EST CoV-Risk Comment:Per note documentation 06/06/2023 06/06/2023 4 8:14 PM EDT CoV-Risk Comment:Per note documentation 10/23/2023 10/23/2023 4 7:03 AM EDT CDiff-Risk 11/13/2023 11/13/2023 11/14/2023 9:39 AM EDT 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 CDiff-Risk 11/19/2023 11/19/2023 11/20/2023 9:44 AM EDT CDiff-Risk 11/25/2023 11/25/2023 11/27/2023 12:2 7 PM EDT 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 03/18/2024 [...] documented as of this encounter Care Teams Ecotherapist Relationship Specialty Start Date End Date Loly Brush MD [address] [place] [address] PCP - General 07/31/14 06/05/23 America Farmer NP [address] [place] [address] [email or web address] PCP - General Nurse Practitioner 06/06/23 07/28/24 Petty Almeida PA [address] [place] [address] [place] [address] PCP - General Physician Claims Sorter 07/29/24 Andrez Manrique MD [address] [place] [address] [place] [address] [email or web address]. du Advanced Heart Failure and Transplant Cardiology 08/31/22 Andrez Kahn MD [address] [place] [address] [email or web address] Consulting Provider Cardiology 08/31/22 Luca Alfaro MD [address] [place] [address] [facility] Pediatric Cardiology 08/31/22 Andrez Osullivan MD [address] [place] [address] [email or web address].wallace. [facility] Pediatric Cardiology 02/05/24 documented as of this encounter Additional Source Comments The information contained in this document represents components of the legal health record. It is not the complete legal health record.[facility]
--- OUTSIDE RECORDS SUMMARY | 2024-11-18 17:12 | XMS_ITS | Encounter Summary ---
Author Organization [facility] Address [address] [facility] [place] [address] Phone Care Team Providers Care Machine Stripper Name Role Phone Loly Brush MD Primary Care Provider [phone] Andrez Manrique MD Unavailable Andrez Kahn MD Unavailable [phone] Luca Alfaro MD Unavailable [phone] America Farmer NP Primary Care Provider Andrez Osullivan MD Unavailable [phone] Petty Almeida Primary Care Provide r Encounter Details Date Type Department Care Team (Late st Contact Info) Description 09/07/2020 Procedure Pass [facility] and Women's Radiology 70 [place], [place] [phone] Social History Tobacco Use Types Packs/Day Years [...] Info) Description 11/28/2024 10:20 AM EDT Appointment [facility] Skeletal Health/Osteoporosis Ctr. and Bone Density Unit [address] [place] [address] Renetta Rosenbaum, COIL TIER 75 [place] [address] [email or web address]. BRIGETTE 12/09/2024 8:00 AM EDT Office Visit [facility] Cardiac Transplant 70 [place] [address] Cornelio Dunham MD 75 [facility] [place] [address] [email or web address] 12/09/2024 9:00 AM EDT Office Visit [facility] Cardiac Transplant 70 [place] [address] Unknown, Unknown, 01/27/2025 4:40 PM EST Office Visit [facility] Specialties [address] [address] Jose Hidalgo MD, MPH 75 [place] [address] [email or web address] documented as of this encounter Visit [...] documented as of this encounter Care Teams Machine Stripper Relationship Specialty Start Date End Date Loly Brush MD [address] [place] [address] PCP - General 07/31/14 06/05/23 America Farmer NP 575 [place] [address] [email or web address] PCP - General Nurse Practitioner 06/06/23 07/28/24 Petty Almeida PA [address] [place] [address] [place] [address] PCP - General Physician Labor Delivery Rn 07/29/24 Andrez Manrique MD [address] [place] [address] [place] [address] [email or web address]. du Advanced Heart Failure and Transplant Cardiology 08/31/22 Andrez Kahn MD [address] [place] [address] [email or web address] Consulting Provider Cardiology 08/31/22 Luca Alfaro MD [address] [place] [address] [facility] Pediatric Cardiology 08/31/22 Andrez Osullivan MD [address] [place] [address] GINNY@[email or web address].[email or web address]. [facility] Pediatric Cardiology 02/05/24 documented as of this encounter Additional Source Comments The information contained in this document represents components of the legal health record. It is not the complete legal health record.[facility]
--- OUTSIDE RECORDS SUMMARY | 2024-11-18 17:12 | XMS_ITS | Encounter Summary ---
Author Organization [facility] Address [address] [facility] [address] [place] [address] Phone Care Team Providers Care Automobile Tire Builder Name Role Phone Andrez Manrique MD Unavailable [phone] Andrez Kahn MD Unavailable [phone] Luca Alfaro MD Unavailable [phone] America Farmer BEAN WEIGHER Primary Care Provider Andrez Osullivan MD Unavailable [phone] Petty Almeida PA Primary Care Provide r Encounter Details Date Type Department Care Team (Late st Contact Info) Description 05/06/2024 Procedure Pass [facility] Cardiac Purchasing Analyst [address] [place] [address] Social History Tobacco Use Types Packs/Day Years [...] high school, GED, job training, learning the [place] language, technical skills, or developing parenting skills)? [...] Info) Description 11/28/2024 10:20 AM EDT Appointment [facility] Skeletal Health/Osteoporosis Ctr. and Bone Density Unit 221 [place] [address] Renetta Rosenbaum, MARVIN 75 [place] [address] [email or web address] BRIG[facility] 12/09/2024 8:00 AM EDT Office Visit [facility] Cardiac Transplant 70 [place] [address] Cornelio Dunham MD [address] [place] [address] [place] [address] [email or web address] 12/09/2024 9:00 AM EDT Office Visit [facility] Cardiac Transplant 70 [place] [address] Unknown, Natalie, 01/27/2025 4:40 PM EST Office Visit [facility] Medical Specialties [address] [address] [place] [address] Jose Hidalgo MD, MPH 75 [place] [address] [email or web address] documented as of this encounter Visit Diagnoses Not on file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 du Advanced Heart Failure and Transplant Cardiology 08/31/22 Andrez Kahn MD [address] [place] [address] [email or web address] Consulting Provider Cardiology 08/31/22 Luca Alfaro MD [address] [place] [address] [facility] Pediatric Cardiology 08/31/22 Andrez Osullivan MD [address] [place] [address] GINNY@[email or web address].[email or web address]. [facility] Pediatric Cardiology 02/05/24 documented as of this encounter Additional Source Comments The information contained in this document represents components of the legal health record. It is not the complete legal health record.[facility]
--- OUTSIDE RECORDS SUMMARY | 2024-11-18 17:13 | XMS_ITS | Encounter Summary ---
Author Organization [facility] Address [address] [facility] [address] [place] [address] Phone Care Team Providers Care Tenter Feeder Name Role Phone Andrez Manrique MD Unavailable Andrez Kahn MD Unavailable [phone] Luca Alfaro MD Unavailable [phone] America Farmer PROFESSOR OF CHEMISTRY Primary Care Provider Andrez Osullivan MD Unavailable [phone] Petty Almeida PA Primary Care Provide r Encounter Details Date Type Department Care Team (Late st Contact Info) Description 01/01/2024 Procedure Pass [facility] Radiology 70 [place] [address] Social History Tobacco Use Types Packs/Day Years [...] before we got money to buy more. Unable to assess 024 Within the past 6 months the food we bought just didn't last and we didn't have enough money to get more. Unable to assess 11/11/2023 Residential Stability Answer Date Recor ded What is your housing situation today? I choose n ot to answer 11/11/2023 How many times have you move d in the past 12 months? Unable to assess 11/11/2023 Paying for Meds Answer Date Recorded Do you have trouble paying for medicines? Unable to assess 11/11/2023 Paying Utility Bills Answer Date Record ed Do you have trouble paying y our heating or electricity bill? Unable to assess 11/11/2023 Transportation Answer Date Recorded Has the lack of transportati on kept you from medical appointments or from getting medications? Unable to assess 11/11/2023 Digital Access Answer Date Recorded No 11/11/2023 No 11/11/2023 Do you have reliable internet access at home? Un able to assess 11/11/2023 Do you have a device (e.g., phone, tablet, computer) with a working camera? Unable to assess 11/11/2023 Comments No Sex and Gender Information Value [...] Health/Osteoporosis Ctr. and Bone Density Unit 221 [place] [address] Renetta Rosenbaum CNP 75 [place] [address] [email or web address] [email or web address] 12/09/2024 8:00 AM EDT Office Visit [facility] Cardiac Transplant 70 [place] [address] Cornelio Dunham MD [address] [place] [address] [email or web address] 12/09/2024 9:00 AM EDT Office Visit [facility] Cardiac Transplant 70 [place] [address] Natalie Estrada MD 01/27/2025 4:40 PM EST Office Visit [facility] [address] [place] ASB2-2 [place] [address] Jose Hidalgo MD, MPH 75 [facility] [place] [address] [email or web address] documented as of this encounter Visit Diagnoses Not on file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 du Advanced Heart Failure and Transplant Cardiology 08/31/22 Andrez Kahn MD [address] [place] [address] [email or web address] Consulting Provider Cardiology 08/31/22 Luca Alfaro MD [address] [place] [address] [email or web address] Pediatric Cardiology 08/31/22 Andrez Osullivan MD [address] [place] [address] [email or web address]. [facility] Pediatric Cardiology 02/05/24 documented as of this encounter Additional Source Comments The information contained in this document represents components of the legal health record. It is not the complete legal health record.[facility]
--- OUTSIDE RECORDS SUMMARY | 2024-11-18 17:13 | XMS_ITS | Encounter Summary ---
Author Organization [facility] Address [address] [facility] [address] [place] [address] Phone Care Team Providers Care Jewelry Estimator Name Role Phone Andrez Manrique MD Unavailable [phone] Andrez Kahn MD Unavailable [phone] Luca Alfaro MD Unavailable America Farmer CUE WORKER Primary Care Provider Andrez Osullivan MD Unavailable Petty Almeida PA Primary Care Provide r Encounter Details Date Type Department Care Team (Late st Contact Info) Description 08/08/2023 Procedure Pass [facility] Cardio EP Device Monitoring 70 [place] [address] Social History Tobacco Use Types Packs/Day Years Used Date Smoking Tobacco: Never Smokeless Tobacco: Never Alcohol Use Standard Drinks/Week Comments Not Currently 0 (1 standard drink = 0.6 oz pur e alcohol) Education Answer Date Recorded Are you interested in more education? Not on madyson e 07/21/2022 Are you concerned about learning? Not on file 07/21/2022 No 07/21/2022 No 07/21/2022 Digital Access Answer Date Recorded No 08/17/2022 No 08/17/2022 Reliable internet access at home? Not on file 08/17/2022 Device with a working camera? Not on file Comments No Sex and Gender Information Value Date Recorded Sex Assigned at Female 01/13/2022 9:57 AM EDT Legal Sex Female 7:53 PM EST Gender Identity Female 01/13/2022 9:57 AM EDT Sexual Orientation Straight 01/13/2022 9: 57 AM EDT documented as of this encounter Plan of Treatment Upcoming Encounters Date Type Department Care Team (Late st Contact Info) Description 11/28/2024 10:20 AM EDT Appointment [facility] Skeletal Health/Osteoporosis Ctr. and Bone Density Unit 221 [place] [address] Renetta Rosenbaum, MD UROLOGIST 75 [place] [address] [email or web address] 12/09/2024 8:00 AM EDT Office Visit [facility] Cardiac Transplant 70 [place] [address] Cornelio Dunham MD [address] [place] [address] [place] [address] [email or web address] 12/09/2024 9:00 AM EDT Office Visit [facility] Cardiac Transplant 70 [place] [address] Unknown, MD Natalie 01/27/2025 4:40 PM EST Office Visit [facility] Medical Specialties 45 [facility]2 [place] [address] Jose Hidalgo MD, MPH 75 [facility] [place] [address] [email or web address] documented as of this encounter Visit Diagnoses Not on filedocumented in this encounter Additional Health Concerns Infection Onset Date Last Indicated Resolved Time CoV-Risk Comment:Per note documentation 10/23/2023 10/23/2023 7:03 [...] 1:26 PM EST CDiff-Risk 03/20/2024 03/20/2024 03/21/2024 9:2 4 AM EST CDiff-Risk 03/27/2024 03/27/2024 03/27/2024 1:11 PM EST Assessment Noted Time PHQ-2 Depression Total Score: 0 02/24/20 4:08 PM EST documented as of this encounter Care Teams Jewelry Estimator Relationship Specialty Start Date End Date America Farmer NP 575 [place] [address] [email or web address] PCP - General Nurse Practitioner 06/06/23 07/28/24 Petty Almeida PA [address] [place] [address] PCP - General Physician Drama Critic 07/29/24 Andrez Manrique MD [address] [place] [address] [place] [address] [email or web address]. du Advanced Heart Failure and Transplant Cardiology 08/31/22 Andrez Kahn MD [address] [place] [address] [email or web address] Consulting Provider Cardiology 08/31/22 Luca Alfaro MD [address] [place] [address] [email or web address] Pediatric Cardiology 08/31/22 Andrez Osullivan MD [address] [place] [address] [email or web address]. [facility] Pediatric Cardiology 02/05/24 documented as of this encounter Additional Source Comments The information contained in this document represents components of the legal health record. It is not the complete legal health record.[facility]
--- OUTSIDE RECORDS SUMMARY | 2024-11-18 17:13 | XMS_ITS | Encounter Summary ---
Author Organization [facility] Address [address] [facility] [address] [place] [address] Phone Care Team Providers Care Tar Distributor Operator Name Role Phone Andrez Manrique MD Unavailable Andrez Kahn MD Unavailable Luca Alfaro MD Unavailable [phone] America Farmer NETWORK PROGRAM MANAGER Primary Care Provider Andrez Osullivan MD Unavailable [phone] Petty Almeida PA Primary Care Provide r Encounter Details Date Type Department Care Team (Late st Contact Info) Description 12/25/2023 Procedure Pass [facility] and Women's Radiology 70 [place] [address] Social History Tobacco Use Types Packs/Day Years [...] Info) Description 11/28/2024 10:20 AM EDT Appointment [facility] Skeletal Health/Osteoporosis Ctr. and Bone Density Unit [address] [place] [address] Renetta Rosenbaum CNP 75 [place] [address] [email or web address] 12/09/2024 8:00 AM EDT Office Visit [facility] Cardiac Transplant 70 [place] [address] Cornelio Dunham MD 75 [facility] [place] [address] [email or web address] 12/09/2024 9:00 AM EDT Office Visit [facility] Cardiac Transplant 70 [place] [address] Unknown, MD Natalie 01/27/2025 4:40 PM EST Office Visit [facility] 45 [facility] ASB2-2 [place] [address] Jose Hidalgo MD, MPH 75 [facility] [place], [place] [address] [email or web address] documented as of this encounter Visit Diagnoses Not on file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 du Advanced Heart Failure and Transplant Cardiology 08/31/22 Andrez Kahn MD [address] [place] [address] [email or web address] Consulting Provider Cardiology 08/31/22 Luca Alfaro MD [address] [place] [address] [email or web address] Pediatric Cardiology 08/31/22 Andrez Osullivan MD [address] [place] [address] [email or web address] Pediatric Cardiology 02/05/24 documented as of this encounter Additional Source Comments The information contained in this document represents components of the legal health record. It is not the complete legal health record.[facility]
--- OUTSIDE RECORDS SUMMARY | 2024-11-18 17:13 | XMS_ITS | Encounter Summary ---
Author Organization [facility] Address [address] [facility] [address] [place] [address] Phone Care Team Providers Care Truck And Transport Mechanic Name Role Phone Andrez Manrique MD Unavailable [phone] Andrez Kahn MD Unavailable [phone] Luca Alfaro MD Unavailable [phone] America Farmer TENNIS BALL COVER CEMENTER Primary Care Provider Andrez Osullivan MD Unavailable [phone] Petty Almeida PA Primary Care Provide r Encounter Details Date Type Department Care Team (Late st Contact Info) Description 01/10/2024 Procedure Pass [facility] Cross Sectional Interventional Radiology [address] [place] [address] Social History Tobacco Use Types Packs/Day Years [...] Info) Description 11/28/2024 10:20 AM EDT Appointment [facility] Skeletal Health/Osteoporosis Ctr. and Bone Density Unit [address] [place] [address] Renetta Rosenbaum CNP [address] [place] [address] [email or web address] [email or web address] 12/09/2024 8:00 AM EDT Office Visit [facility] Cardiac Transplant [address] [place] [address] Cornelio Dunham MD 75 [facility] [place] [address] [email or web address] 12/09/2024 9:00 AM EDT Office Visit [facility] Cardiac Transplant [address] [place] [address] Natalie Estrada MD 01/27/2025 4:40 PM EST Office Visit [facility] ASB2-2 [place] [address] Jose Hidalgo MD, MPH 75 [facility] [address] [email or web address] documented as of this encounter Visit [...] documented as of this encounter Care Teams Truck And Transport Mechanic Relationship Specialty Start Date End Date America Farmer NP [address] [place] [address] [email or web address] PCP - General Nurse Practitioner 06/06/23 07/28/24 Petty Almeida PA [address] [place] [address] PCP - General Physician Director Financial Services 07/29/24 Andrez Manrique MD [address] [place] [address] [email or web address] du Advanced Heart Failure and Transplant Cardiology 08/31/22 Andrez Kahn MD [address] [place] [address] [email or web address] Consulting Provider Cardiology 08/31/22 Luca Alfaro MD [address] [place] [address] [email or web address] Pediatric Cardiology 08/31/22 Andrez Osullivan MD [address] [place] [address] [email or web address] Pediatric Cardiology 02/05/24 documented as of this encounter Additional Source Comments The information contained in this document represents components of the legal health record. It is not the complete legal health record.[facility]
--- OUTSIDE RECORDS SUMMARY | 2024-11-18 17:13 | XMS_ITS | Encounter Summary ---
Author Organization [facility] Address 399 [facility] [address] [place] [address] Phone Care Team Providers Care Technologist Development Name Role Phone Andrez Manrique MD Unavailable [phone] Andrez Kahn MD Unavailable Luca Alfaro MD Unavailable [phone] America Farmer SINGING WAITER OR WAITRESS Primary Care Provider Andrez Osullivan MD Unavailable Petty Almeida PA Primary Care Provide r Encounter Details Date Type Department Care Team (Late st Contact Info) Description 01/01/2024 Procedure Pass [facility] Women's Radiology 75 [place] [address] Social History Tobacco Use Types Packs/Day Years [...] Info) Description 11/28/2024 10:20 AM EDT Appointment [facility] Skeletal Health/Osteoporosis Ctr. and Bone Density Unit [address] [place] [address] Renetta Rosenbaum CNP 75 [place] [address] [email or web address]. BRIGETTE 12/09/2024 8:00 AM EDT Office Visit [facility] Cardiac Transplant 70 [place] [address] Cornelio Dunham MD 75 [facility] [place] [address] [email or web address] 12/09/2024 9:00 AM EDT Office Visit [facility] Cardiac Transplant 70 [place] [address] Natalie Estrada MD 01/27/2025 4:40 PM EST Office [facility] ASB2-2 [place] [address] Jose Hidalgo MD, MPH 75 [facility], [place] [address] [email or web address] documented as of this encounter [...] documented as of this encounter Care Teams Technologist Development Relationship Specialty Start Date End Date America Farmer NP 575 [place] [address] [email or web address] PCP - General Nurse Practitioner 06/06/23 07/28/24 Petty Almeida PA [address] [place] [address] [facility] [place] [address] PCP - General Physician Forest Management Teacher 07/29/24 Andrez Manrique MD [address] [place] [address] [place] [address] [email or web address]. du Advanced Heart Failure and Transplant Cardiology 08/31/22 Andrez Kahn MD [address] [place] [address] [email or web address] Consulting Provider Cardiology 08/31/22 Luca Alfaro MD [address] [place] [address] [email or web address] Pediatric Cardiology 08/31/22 Andrez Osullivan MD [address] [place] [address] GINNY@[email or web address] [place] Pediatric Cardiology 02/05/24 documented as of this encounter Additional Source Comments The information contained in this document represents components of the legal health record. It is not the complete legal health record.[facility]
--- OUTSIDE RECORDS SUMMARY | 2024-11-18 17:13 | XMS_ITS | Encounter Summary ---
Author Organization [facility] Address [address] [facility] [address] [place] [address] Phone Care Team Providers Care Industrial Green Systems Designer Name Role Phone Andrez Manrique MD Unavailable [phone] Andrez Kahn MD Unavailable [phone] Luca Alfaro MD Unavailable America Farmer ELECTROMAGNET CRANE OPERATOR Primary Care Provider Andrez Osullivan MD Unavailable [phone] Petty Almeida PA Primary Care Provide r Encounter Details Date Type Department Care Team (Late st Contact Info) Description 12/25/2023 Procedure Pass [facility] Cardiac Roofer Gypsum [address] [place] [address] Social History Tobacco Use Types Packs/Day Years [...] Info) Description 11/28/2024 10:20 AM EDT Appointment [facility] Skeletal Health/Osteoporosis Ctr. and Bone Density Unit 221 [place] [address] Renetta Rosenbaum CNP 75 [place] [address] [email or web address] [email or web address] 12/09/2024 8:00 AM EDT Office Visit [facility] Cardiac Transplant 70 [place] [address] Cornelio Dunham MD 75 [facility] [place] [address] [email or web address] 12/09/2024 9:00 AM EDT Office Visit [facility] Cardiac Transplant 70 [place] [address] Natalie, MD Natalie 01/27/2025 4:40 PM EST Office [facility] 45 [facility] ASB2-2 [place] [address] Jose Hidalgo MD, MPH 75 [facility], [place] [address] [email or web address] documented as of this encounter [...] documented as of this encounter Care Teams Industrial Green Systems Designer Relationship Specialty Start Date End Date America Farmer NP [address] [place] [address] PCP - General Nurse Practitioner 06/06/23 07/28/24 Petty Almeida PA [address] [place] [address] PCP - General Physician Home Health Care Provider 07/29/24 Andrez Manrique MD [address] [place] [address] [email or web address] du Advanced Heart Failure and Transplant Cardiology 08/31/22 Andrez Kahn MD [address] [place] [address] [email or web address] Consulting Provider Cardiology 08/31/22 Luca Alfaro MD [address] [place] [address] [place] Pediatric Cardiology 08/31/22 Andrez Osullivan MD [address] [place] [address] GINNY@[email or web address] [email or web address]. [facility] Pediatric Cardiology 02/05/24 documented as of this encounter Additional Source Comments The information contained in this document represents components of the legal health record. It is not the complete legal health record.[facility]
--- OUTSIDE RECORDS SUMMARY | 2024-11-18 17:13 | XMS_ITS | Encounter Summary ---
Author Organization [facility] Address [address] [facility] [address] [place] [address] Phone Care Team Providers Care Chief Dispatcher Service Name Role Phone Andrez Manrique MD Unavailable Andrez Kahn MD Unavailable Luca Alfaro MD Unavailable [phone] America Farmer RADIAL ROUTER OPERATOR Primary Care Provider Andrez Osullivan MD Unavailable [phone] Petty Almeida PA Primary Care Provide r Encounter Details Date Type Department Care Team (Late st Contact Info) Description 12/25/2023 Procedure Pass [facility] Women's Radiology [address] [place] [address] Social History Tobacco Use Types Packs/Day Years [...] Description 11/28/2024 10:[address] [facility] Skeletal Health/Osteoporosis Ctr. and Bone Density Unit [address] [place] [address] Renetta Rosenbaum CNP [address] [place] [address] [email or web address] BRIGETTE 12/09/2024 8:00 AM EDT Office Visit [facility] Cardiac Transplant 70 [place] [address] Cornelio Dunham MD 75 [facility] [place] [address] [email or web address] 12/09/2024 9:00 AM EDT Office Visit [facility] Cardiac Transplant 70 [place] [address] Unknown, MD Natalei 01/27/2025 4:40 PM EST Office [facility] 45 [facility] ASB2-2 [place] [address] Jose Hidalgo MD, MPH 75 [facility], [place] [address] [email or web address] documented as of this encounter Visit [...] documented as of this encounter Care Teams Chief Dispatcher Service Relationship Specialty Start Date End Date America Farmer NP 575 [place] [address] [email or web address] PCP - General Nurse Practitioner 06/06/23 07/28/24 Petty Almeida PA [address] [place] [address] PCP - General Physician Umbrella Tipper 07/29/24 Andrez Manrique MD [address] [place] [address] [email or web address]. du Advanced Heart Failure and Transplant Cardiology 08/31/22 Andrez Kahn MD [address] [place] [address] [email or web address] Consulting Provider Cardiology 08/31/22 Luca Alfaro MD [address] [place] [address] [email or web address] Pediatric Cardiology 08/31/22 Andrez Osullivan MD [address] [place] [address] GINNY@[facility] Pediatric Cardiology 02/05/24 documented as of this encounter Additional Source Comments The information contained in this document represents components of the legal health record. It is not the complete legal health record.[facility]
--- OUTSIDE RECORDS SUMMARY | 2024-11-18 17:13 | XMS_ITS | Encounter Summary ---
Author Organization [facility] Address [address] [facility] [address] [place] [address] Phone Care Team Providers Care Musical Instrument Maker Name Role Phone Andrez Manrique MD Unavailable [phone] Andrez Kahn MD Unavailable Luca Alfaro MD Unavailable [phone] America Farmer IT PROGRAMMER ANALYST Primary Care Provider Andrez Osullivan MD Unavailable [phone] Petty Almeida PA Primary Care Provide r Encounter Details Date Type Department Care Team (Late st Contact Info) Description 01/06/2024 Procedure Pass [facility] and Women's Radiology 70 [place] [address] Social History Tobacco Use Types Packs/Day Years [...] Info) Description 11/28/2024 10:20 AM EDT Appointment [facility] Skeletal Health/Osteoporosis Ctr. and Bone Density Unit 221 [place] [address] Renetta Rosenbaum CNP 75 [place] [address] [email or web address] [email or web address] 12/09/2024 8:00 AM EDT Office Visit [facility] Cardiac Transplant 70 [place] [address] Cornelio Dunham MD 75 [facility] [place] [address] [email or web address] 12/09/2024 9:00 AM EDT Office Visit [facility] Cardiac Transplant 70 [place] [address] Natalie Estrada MD 01/27/2025 4:40 PM EST Office Visit [facility] 45 [facility] ASB2-2 [place] [address] Jose Hidalgo MD, MPH 75 [facility], [facility] [place] [address] LUCERO@[facility] documented as of this encounter [...] documented as of this encounter Care Teams Musical Instrument Maker Relationship Specialty Start Date End Date America Farmer NP [address] [place] [address] [email or web address] PCP - General Nurse Practitioner 06/06/23 07/28/24 Petty Almeida PA [address] [place] [address] PCP - General Physician Pulp Cooker 07/29/24 Andrez Manrique MD [address] [place] [address] [place] [address] [email or web address] ed. du Advanced Heart Failure and Transplant Cardiology 08/31/22 Andrez Kahn MD [address] [place] [address] [email or web address] Consulting Provider Cardiology 08/31/22 Luca Alfaro MD [address] [place] [address] [email or web address] Pediatric Cardiology 08/31/22 Andrez Osullivan MD [address] [place] [address] GINNY@[email or web address].[place]. [facility] Pediatric Cardiology 02/05/24 documented as of this encounter Additional Source Comments The information contained in this document represents components of the legal health record. It is not the complete legal health record.[facility]
--- OUTSIDE RECORDS SUMMARY | 2024-11-18 17:14 | XMS_ITS | Encounter Summary ---
Author Organization [facility] Address [address] [facility] [address] [place] [address] Phone Care Team Providers Care Security Operations Specialist Name Role Phone Andrez Manrique MD Unavailable Andrez Kahn MD Unavailable [phone] Luca Alfaro MD Unavailable [phone] America Farmer BENEFITS ADMINISTRATOR Primary Care Provider Andrez Osullivan MD Unavailable [phone] Petty Almeida PA Primary Care Provide r Encounter Details Date Type Department Care Team (Late st Contact Info) Description 01/01/2024 Procedure Pass [facility] Women's Radiology [address] [place] [address] Social History Tobacco Use Types Packs/Day Years [...] Info) Description 11/28/2024 10:20 AM EDT Appointment [facility] Skeletal Health/Osteoporosis Ctr. and Bone Density Unit [address] [place] [address] Renetta Rosenbaum CNP [address] [place] [address] [email or web address] [email or web address] 12/09/2024 8:00 AM EDT Office Visit [facility] Cardiac Transplant [address] [place] [address] Cornelio Dunham MD 75 [facility] Cardiovascular [place] [address] [email or web address] 12/09/2024 9:00 AM EDT Office Visit [facility] Cardiac Transplant [address] [place] [address] Natalie Estrada MD 01/27/2025 4:40 PM EST Office Visit [facility] 45 [facility] ASB2-2 [place] [address] Jose Hidalgo MD, MPH 75 [facility], [facility] [address] [email or web address]@[facility] documented as of this encounter [...] documented as of this encounter Care Teams Security Operations Specialist Relationship Specialty Start Date End Date America Farmer NP [address] [place] [address] [email or web address] PCP - General Nurse Practitioner 06/06/23 07/28/24 Petty Almeida PA [address] [place] [address] PCP - General Physician [place]er Farmer 07/29/24 Andrez Manrique MD [address] [place] [address] [place] [address] [email or web address]. du Advanced Heart Failure and Transplant Cardiology 08/31/22 Andrez Kahn MD [address] [place] [address] [email or web address] Consulting Provider Cardiology 08/31/22 Luca Alfaro MD [address] [place] [address] [email or web address] Pediatric Cardiology 08/31/22 Andrez Osullivan MD [address] [place] [address] GINNY@[email or web address].[place]. [facility] Pediatric Cardiology 02/05/24 documented as of this encounter Additional Source Comments The information contained in this document represents components of the legal health record. It is not the complete legal health record.[facility]
--- OUTSIDE RECORDS SUMMARY | 2024-11-18 17:14 | XMS_ITS | Encounter Summary ---
Author Organization [facility] Address [address] [facility] [address] [place] [address] Phone Care Team Providers Care News Anchor Name Role Phone Andrez Manrique MD Unavailable Andrez Kahn MD Unavailable Luca Alfaro MD Unavailable [phone] America Farmer COURTESY CAR DRIVER Primary Care Provider Andrez Osullivan MD Unavailable [phone] Petty Almeida PA Primary Care Provide r Encounter Details Date Type Department Care Team (Late st Contact Info) Description 01/01/2024 Procedure Pass [facility] Women's Radiology 70 [place] [address] Social History Tobacco Use Types Packs/Day Years [...] Info) Description 11/28/2024 10:20 AM EDT Appointment [facility] Skeletal Health/Osteoporosis Ctr. and Bone Density Unit [address] [place] [address] Renetta Rosenbaum CNP 75 [place] [address] [email or web address] 12/09/2024 8:00 AM EDT Office Visit [facility] Cardiac Transplant 70 [place] [address] Cornelio Dunham MD 75 [facility] [place] [address] [email or web address] 12/09/2024 9:00 AM EDT Office Visit [facility] Cardiac Transplant 70 [place] [address] Natalie Estrada MD 01/27/2025 4:40 PM EST [facility] 45 [facility] ASB2-2 [place] [address] Jose Hidalgo MD, MPH 75 [facility], [facility] [address] [email or web address] documented as of this encounter Visit [...] documented as of this encounter Care Teams News Anchor Relationship Specialty Start Date End Date America Farmer NP 575 [place] [address] [email or web address] PCP - General Nurse Practitioner 06/06/23 07/28/24 Petty Almeida PA [address] [place] [address] PCP - General Physician Hot Plate Press Operator 07/29/24 Andrez Manrique MD [address] [place] [address] [place] [address] [email or web address]. du Advanced Heart Failure and Transplant Cardiology 08/31/22 Andrez Kahn MD [address] [place] [address] [email or web address] Consulting Provider Cardiology 08/31/22 Luca Alfaro MD [address] [place] [address] [email or web address] Pediatric Cardiology 08/31/22 Andrez Osullivan MD [address] [place] [address] GINNY@[email or web address]. [facility] Pediatric Cardiology 02/05/24 documented as of this encounter Additional Source Comments The information contained in this document represents components of the legal health record. It is not the complete legal health record.[facility]
--- OUTSIDE RECORDS SUMMARY | 2024-11-18 17:14 | XMS_ITS | Encounter Summary ---
Author Organization [facility] Address [address] [place] [address] Phone Care Team Providers Care Back Tender Cloth Printing Name Role Phone Loly Brush MD Primary Care Provider [phone] Andrez Manrique MD Unavailable [phone] Andrez Kahn MD Unavailable Luca Alfaro MD Unavailable [phone] America Farmer NP Primary Care Provider Andrez Osullivan MD Unavailable [phone] Petty Almeida Primary Care Provide r Encounter Details Date Type Department Care Team (Late st Contact Info) Description 02/14/2023 Procedure Pass [facility] Cardiac Pipe Fitter [employer] [address] [place] [address] Social History Tobacco Use Types Packs/Day Years [...] Info) Description 11/28/2024 10:20 AM EDT Appointment [facility] Skeletal Health/Osteoporosis Ctr. and Bone Density Unit [address] [place] [address] Renetta Rosenbaum, TRAIN INSPECTOR [address] [place] [address] [email or web address] 12/09/2024 8:00 AM EDT Office Visit [facility] Cardiac Transplant [address] [place] [address] Cornelio Dunham MD [address] [facility] [place] [address] [email or web address] 12/09/2024 9:00 AM EDT Office Visit [facility] Cardiac Transplant [address] [place] [address] Unknown, Natalie, 01/27/2025 4:40 PM EST Office Visit [facility] Medical Specialties 45 [facility] [place]2-2 [place] [address] Jose Hidalgo MD, MPH 75 [place] [address] [email or web address] documented as of this encounter Visit Diagnoses Not on filedocumented in this encounter Additional Health Concerns Infection Onset Date Last Indicated Resolved Time CoV-Risk Comment:Per note documentation 03/28/2023 03/28/2023 7:30 [...] documented as of this encounter Care Teams Back Tender Cloth Printing Relationship Specialty Start Date End Date Loly Brush MD [address] [place] [address] PCP - General 07/31/14 06/05/23 America Farmer NP [address] [place] [address] [email or web address] PCP - General Nurse Practitioner 06/06/23 07/28/24 Petty Almeida PA [address] [place] [address] PCP - General Physician Tonguer 07/29/24 Adnrez Manrique MD [address] [place] [address] [place] [address] [email or web address]. du Advanced Heart Failure and Transplant Cardiology 08/31/22 Andrez Kahn MD [address] [place] [address] Consulting Provider Cardiology 08/31/22 Luca Alfaro MD [address] [place] [address] [facility] Pediatric Cardiology 08/31/22 Andrez Osullivan MD [address] [place] [address] [email or web address]. [facility] Pediatric Cardiology 02/05/24 documented as of this encounter Additional Source Comments The information contained in this document represents components of the legal health record. It is not the complete legal health record.[facility]
--- OUTSIDE RECORDS SUMMARY | 2024-11-18 17:14 | XMS_ITS | Encounter Summary ---
Author Organization [facility] Address [address] [facility] [address] [place] [address] Phone Care Team Providers Care Sales Engagement Executive Name Role Phone Loly Brush MD Primary Care Provider [phone] Andrez Manrique MD Unavailable [phone] Andrez Kahn MD Unavailable Luca Alfaro MD Unavailable [phone] America Farmer NP Primary Care Provider Andrez Osullivan MD Unavailable [phone] Petty Almeida Primary Care Provide r Encounter Details Date Type Department Care Team (Late st Contact Info) Description 02/20/2023 Anti-coag visit VIRTUAL DEPARTMENT Cuco Arambula, PharmD [address] Pharmacy [place] [address] [email or web address] Social History Tobacco Use Types Packs/Day Years [...] Info) Description 11/28/2024 10:20 AM EDT Appointment [facility] Skeletal Health/Osteoporosis Ctr. and Bone Density Unit [address] [place] [address] Renetta Rosenbaum, COSTUME TECHNICIAN [address] [place] [address] [email or web address]. [email or web address] 12/09/2024 8:00 AM EDT Office Visit [facility] Cardiac Transplant [address] [place] [address] Cornelio Dunham MD [address] [place] [address] Cardiovascular [place] [address] [email or web address] 12/09/2024 9:00 AM EDT Office Visit [facility] Cardiac Transplant [address] [place] [address] Natalie, Natalie, 01/27/2025 4:40 PM EST Office Visit [facility] Medical Specialties [address] [address] [place] [address] Jose Hidalgo MD, MPH 75 [facility] [place] [place] [address] [email or web address] documented as of this encounter Visit [...] documented as of this encounter Care Teams Sales Engagement Executive Relationship Specialty Start Date End Date Loly Brush MD [address] [place] [address] PCP - General 07/31/14 06/05/23 America Farmer NP [address] [place] [address] [email or web address] [email or web address] PCP - General Nurse Practitioner 06/06/23 07/28/24 Petty Almeida PA [address] [place] [address] PCP - General Physician Outside Maintenance Worker 07/29/24 Andrez Manrique MD [address] [place] [address] [place] [address] [email or web address] du Advanced Heart Failure and Transplant Cardiology 08/31/22 Andrez Kahn MD [address] [place] [address] Consulting Provider Cardiology 08/31/22 Luca Alfaro MD [address] [place] [address] Pediatric Cardiology 08/31/22 Andrez Osullivan MD [address] [place] [address] [email or web address] Pediatric Cardiology 02/05/24 documented as of this encounter Additional Source Comments The information contained in this document represents components of the legal health record. It is not the complete legal health record.[facility]
--- OUTSIDE RECORDS SUMMARY | 2024-11-18 17:14 | XMS_ITS | Encounter Summary ---
Author Organization [facility] Address [address] [facility] [address] [place] [address] Phone Care Team Providers Care Internal Medicine Nurse Practitioner Name Role Phone Andrez Manrique MD Unavailable [phone] Andrez Kahn MD Unavailable [phone] Luca Alfaro MD Unavailable [phone] America Farmer DIVERSIONAL THERAPIST'S ASSISTANT Primary Care Provider Andrez Osullivan MD Unavailable [phone] Petty Almeida PA Primary Care Provide r Encounter Details Date Type Department Care Team (Late st Contact Info) Description 01/06/2024 Procedure Pass [facility] Rad[facility] 70 [place] [address] Social History Tobacco Use Types Packs/Day Years [...] Info) Description 11/28/2024 10:20 AM EDT Appointment [facility] Skeletal Health/Osteoporosis Ctr. and Bone Density Unit 221 [place] [address] Renetta Rosenbaum CNP 75 [place] [address] [email or web address] [place] 12/09/2024 8:00 AM EDT Office Visit [facility] Cardiac Transplant 70 [place] [address] Cornelio Dunham MD 75 [facility] [place] [address] [email or web address] 12/09/2024 9:00 AM EDT Office Visit [facility] Cardiac Transplant 70 [place] [address] Natalie Estrada MD 01/27/2025 4:40 PM EST Office Visit [facility] 45 [facility] ASB2-2 [place] [address] Jose Hidalgo MD, MPH 75 [facility] [place] [address] [email or web address] documented as of this encounter Visit Diagnoses [...] documented as of this encounter Care Teams Internal Medicine Nurse Practitioner Relationship Specialty Start Date End Date America Farmer NP 575 [place] [address] [email or web address] PCP - General Nurse Practitioner 06/06/23 07/28/24 Petty Almeida PA [address] [place] [address] PCP - General Physician Medical Accounting Clerk 07/29/24 Andrez Manrique MD [address] [place] [address] [place] [address] [email or web address]. du Advanced Heart Failure and Transplant Cardiology 08/31/22 Andrez Kahn MD [address] [place] [address] [email or web address] Consulting Provider Cardiology 08/31/22 Luca Alfaro MD [address] [place] [address] [email or web address] Pediatric Cardiology 08/31/22 Andrez Osullivan MD [address] [place] [address] [email or web address] Pediatric Cardiology 02/05/24 documented as of this encounter Additional Source Comments The information contained in this document represents components of the legal health record. It is not the complete legal health record.[facility]
--- OUTSIDE RECORDS SUMMARY | 2024-11-18 17:15 | XMS_ITS | Encounter Summary ---
Author Organization [facility] Address [address] [facility] [address] [place] [address] Phone Care Team Providers Care Cath Lab Tech Name Role Phone Loly Brush MD Primary Care Provider [phone] Andrez Manrique MD Unavailable [phone] Andrez Kahn MD Unavailable [phone] Luca Alfaro MD Unavailable [phone] America Farmer NP Primary Care Provider Andrez Osullivan MD Unavailable [phone] Petty Almeida Primary Care Provide r Encounter Details Date Type Department Care Team (Late st Contact Info) Description 02/23/2023 Anti-coag visit VIRTUAL DEPARTMENT Unknown, Unknown, Social History Tobacco Use Types Packs/Day Years [...] Info) Description 11/28/2024 10:20 AM EDT Appointment [facility] Skeletal Health/Osteoporosis Ctr. and Bone Density Unit [address] [place] [address] Renetta Rosenbaum, CUSTOMER SOLUTIONS ARCHITECT 75 [place] [address] [email or web address]. [email or web address] 12/09/2024 8:00 AM EDT Office Visit [facility] Cardiac Transplant 70 [place] [address] Cornelio Dunham MD 75 [facility] [place] [address] [email or web address] 12/09/2024 9:00 AM EDT Office Visit [facility] Cardiac Transplant 70 [place] [address] Unknown, Natalie, 01/27/2025 4:40 PM EST Office Visit [facility] Medical Specialties 45 [facility]2-2 [place] [address] Jose Hidalgo MD, MPH 75 [facility] [place] [address] [email or web address] documented as of this encounter Visit Diagnoses [...] documented as of this encounter Care Teams Cath Lab Tech Relationship Specialty Start Date End Date Loly Brush MD [address] [place] [address] PCP - General 07/31/14 06/05/23 America Farmer NP [address] [place] [address] [email or web address] PCP - General Nurse Practitioner 06/06/23 07/28/24 Petty Almeida PA [address] [place] [address] PCP - General Physician Golf Club Weigher 07/29/24 Andrez Manrique MD [address] [place] [address] [place] [address] [email or web address]. du Advanced Heart Failure and Transplant Cardiology 08/31/22 Andrez Kahn MD [address] [place] [address] [email or web address] Consulting Provider Cardiology 08/31/22 Luca Alfaro MD [address] [place] [address] [email or web address] Pediatric Cardiology 08/31/22 Andrez Osullivan MD [address] [place] [address] [email or web address]. [facility] Pediatric Cardiology 02/05/24 documented as of this encounter Additional Source Comments The information contained in this document represents components of the legal health record. It is not the complete legal health record.[facility]
--- OUTSIDE RECORDS SUMMARY | 2024-11-18 17:15 | XMS_ITS | Encounter Summary ---
Author Organization [facility] Address [address] [facility] [address] [place] [address] Phone Care Team Providers Care Manager Digital Ad Operations Name Role Phone Loly Brush MD Primary Care Provider [phone] Andrez Manrique MD Unavailable [phone] Andrez Kahn MD Unavailable [phone] Luca Alfaro MD Unavailable [phone] America Farmer NP Primary Care Provider Andrez Osullivan MD Unavailable [phone] Petty Almeida Primary Care Provide r Encounter Details Date Type Department Care Team (Latest Contact Info) Description 03/07/2023 Transcribe Orders [facility] Cardiovascular Clinic 70 [place] [address] Nirali Parson [facility] [place], [place] [address] [place], [place] [id number] 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 Skeletal Health/Osteoporosis Ctr. and Bone Density Unit [address] [place] [address] Renetta Rosenbaum, MARVIN 75 [place] [address] [email or web address]. [email or web address] 12/09/2024 8:00 AM EDT Office Visit [facility] Cardiac Transplant 70 [place] [address] Cornelio Dunham MD 75 [facility] [place] [address] [email or web address] 12/09/2024 9:00 AM EDT Office Visit [facility] Cardiac Transplant 70 [place] [address] Natalie Estrada MD 01/27/2025 4:40 PM EST Office Visit [facility] Medical Specialties 45 [facility] [place]2-2 [place] [address] Jose Hidalgo MD, MPH [address] [place] [address] [email or web address] Scheduled Orders Name Type Priority Associated Diagnoses Orde r Schedule EP Device Check / Follow Up Cardiac Monitors Routine ICD (implantable cardioverter-defibril lator) in place Other for 60 Occurrences starting 03/07/2023 until 03/07/2025, 1 completed documented as of this encounter Results * DEVICE CHECK: ICD IN-PERSON PROGRAMMING?? DUAL LEAD (03/28/2023 10:02 AM EST) Date Time Interrogation Session [id number] [facility] [employer] Implantable Pulse Generator Radiologic Technology Program Director Beulah [employer] [facility] [employer] Implantable Pulse Generator Model D152 DYNAGEN [facility] [employer] Implantable Pulse Generator Serial Number [id number] [facility] Type Interrogation Session In Clinic [facility] Clinic Name Cardiac Device Clinic [facility] Implantable Pulse Generator Type Defibrillator [facility] Generator Implant Date [id number] [facility] Stevie Setting Mode (NBG Code) DDD [facility] Stevie Setting Lower Rate Limit 80 {beats}/ min [facility] Stevie Setting Maximum Tracking Rate 120 {beats}/ min [facility] Stevie Setting CARLOS A Delay Low 300 ms [facility] Stevie Setting PAV Delay Low 320 ms [facility] Stevie Setting PAV Delay High 250 ms [facility] Stevie Setting CARLOS A Delay High 235 ms [facility] Stevie Setting AT Mode Switch Rate 150 {beats}/ min [facility] Stevie Setting AT Mode Switch Mode VDI [facility] Lead Channel Setting Sensing Polarity Bipolar [facility] Lead Channel Setting Sensing Sensitivity 0.25 mV [facility] Lead Channel Setting Sensing Adaptation Mode Adaptive [facility] Lead Channel Setting Sensing Polarity Bipolar [facility] Lead Channel Setting Sensing Sensitivity 0.6 mV [facility] Lead Channel Setting Sensing Adaptation Mode Adaptive [facility] Lead Channel Setting Pacing Polarity Bipolar [facility] Lead Channel Setting Pacing Pulse Width 0.5 ms [facility] Lead Channel Setting RA Pacing Amplitude 2.5 V [facility] Lead Channel Setting Pacing Polarity Bipolar [facility] Lead Channel Setting Pacing Pulse Width 0.5 ms [facility] Lead Channel Setting Pacing Amplitude 2.5 V [facility] Zone Setting Type Category VF [facility] Zone Setting Vendor Type Category VF [facility] Zone Setting Status Active [facility] Zone Setting Detection Interval 273 ms [facility] Zone Setting Type Category VT [facility] Zone Setting Vendor Type Category VT [facility] Zone Setting Status Monitor [facility] Zone Setting Detection Interval 400 ms [facility] Atrial Impedance 745 ohm PAR [facility] RA Threshold 0.[address] [facility] RA Threshold PW 0.5 ms [facility] RV Impedance 389 ohm [facility] RV Threshold 1.1 V [facility] RV Threshold PW 0.5 ms [facility] Battery Date Time of Measurements +0 000 [facility] Battery Status Beginning of Service [facility] Battery Remaining Longevity 84 mo [facility] Battery Remaining Percentage 95 % [facility] Capacitor Charge Type Reformation [facility] Capacitor Last Charge Date Time +0 000 [facility] Capacitor Charge Time 9.8 s [facility] Capacitor Charge Type Shock [facility] Capacitor Last Charge Date Time +0 000 [facility] Capacitor Charge Time 7.0 s [facility] Capacitor Charge Energy 41 J [facility] Stevie Statistic Date Time Start 20230215 [facility] Stevie Statistic Date Time End 20230328 [facility] AP (%) 100 % [facility] GOLF BALL MOLDER (%) 33 % [facility] Atrial Tachy Statistic Date Time Start 20230217 [facility] Atrial Tachy Statistic Date Time End 20230328 [facility] Atrial Tachy Statistic AT/AF Villalba Percent 0 % [facility] Therapy Statistic Recent Shocks Delivered 0 [facility] Therapy Statistic Recent Shocks Aborted 0 [facility] Therapy Statistic Recent ATP Delivered 0 [facility] Therapy Statistic Recent Date Time Start 20230215 [facility] Therapy Statistic Recent Date Time End 20230328 [facility] Therapy Statistic Total Shocks Delivered 5 [facility] Therapy Statistic Total Shocks Aborted 0 [facility] Therapy Statistic Total ATP Delivered 1 [facility] Therapy Statistic Total Date Time Start 20180727 [facility] Therapy Statistic Total Date Time End 20230328 [facility] Episode Statistic Recent Count 0 [facility] Episode Statistic Type Category Other [facility] Episode Statistic Recent Count 0 [facility] Episode Statistic Type Category VT [facility] Episode Statistic Vendor Type Category NSVT [facility] Episode Statistic Recent Count 0 [facility] Episode Statistic Type Category VT [facility] Episode Statistic Vendor Type Category VT [facility] Episode Statistic Recent Count 0 [facility] Episode Statistic Type Category VT [facility] Episode Statistic Vendor Type Category VT-1 [facility] Episode Statistic Recent Date Time Start 20230215 [facility] Episode Statistic Recent Date Time End 20230328 [facility] Episode Statistic Recent Date Time Start 20230215 [facility] Episode Statistic Recent Date Time End 20230328 [facility] Episode Statistic Recent Date Time Start 20230215 [facility] Episode Statistic Recent Date Time End 20230328 [facility] Episode Statistic Recent Date Time Start 20230215 [facility] Episode Statistic Recent Date Time End 20230328 [facility] 03/28/2023 9:33 AM EST Narrative [facility] - 04/02/2023 7:28 PM EST Cardiac Device Evaluation: Fidelina Perry presents today at the [facility] device clinic for routine device follow up. 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 Summary: Device function normal with acceptable lead measurements and battery status. Follow Up: Quarterly Latitude remotes, 1 year VV w/ Dr. Clemente Pal, Cardiac Device Freelance Designer Cardiovascular Division Arrhythmia Service, [address] [place] [address] Jaime Cornejo MD CV CARDIAC SERVICES ORDER MILLIE Final Result [address] [address] documented in this encounter Visit Diagnoses Diagnosis ICD (implantable cardioverter-defibrillator) in place- Primary ICD (implantable cardioverter-defibrillator) in place documented in this encounter Additional Health Concerns [...] documented as of this encounter Care Teams Manager Digital Ad Operations Relationship Specialty Start Date End Date Loly Brush MD [address] [place] [address] PCP - General 07/31/14 06/05/23 America Farmer NP [address] [place] [address] [email or web address] [employer] PCP - General Nurse Practitioner 06/06/23 07/28/24 Petty Almeida PA [address] [place] [address] PCP - General Physician Accounts Payables Clerk 07/29/24 Andrez Manrique MD [address] [place] [address] [place] [address] [email or web address]. du Advanced Heart Failure and Transplant Cardiology 08/31/22 Andrez Kahn MD [address] [place] [address] [email or web address] Consulting Provider Cardiology 08/31/22 Luca Alfaro MD [address] [place] [address] [email or web address] Pediatric Cardiology 08/31/22 Anderz Osullivan MD [address] [place] [address] [email or web address] Pediatric Cardiology 02/05/24 documented as of this encounter Additional Source Comments The information contained in this document represents components of the legal health record. It is not the complete legal health record.[facility]
--- OUTSIDE RECORDS SUMMARY | 2024-11-18 17:15 | XMS_ITS | Encounter Summary ---
Author Organization [facility] Address [address] [facility] [address] [place] [address] Phone Care Team Providers Care Curatorial Assistant Name Role Phone Loly Brush MD Primary Care Provider [phone] Andrez Manrique MD Unavailable [phone] Andrez Kahn MD Unavailable [phone] Luca Alfaro MD Unavailable [phone] America Farmer NP Primary Care Provider Andrez Osullivan MD Unavailable [phone] Petty Almeida Primary Care Provide r Encounter Details Date Type Department Care Team (Late st Contact Info) Description 03/07/2023 Procedure Pass [facility] Cardio EP Device Monitoring [address] [place] [address] Social History Tobacco Use Types Packs/Day Years [...] Info) Description 11/28/2024 10:20 AM EDT Appointment [facility] Skeletal Health/Osteoporosis Ctr. and Bone Density Unit [address] [place] [address] Renetta Rosenbaum, FELTMAKER 75 [place] [address] [email or web address] 12/09/2024 8:00 AM EDT Office Visit [facility] Cardiac Transplant [address] [place] [address] Cornelio Dunham MD 75 [facility] [place] [address] [email or web address] 12/09/2024 9:00 AM EDT Office Visit [facility] Cardiac Transplant [address] [place] [address] Unknown, Natalie, 01/27/2025 4:40 PM EST Office Visit [facility] Medical Specialties 45 [facility]2-2 [place] [address] Jose Hidalgo MD, MPH 75 [place] [address] [email or web address] documented as of this encounter Visit [...] documented as of this encounter Care Teams Curatorial Assistant Relationship Specialty Start Date End Date Loly Brush MD [address] [place] [address] PCP - General 07/31/14 06/05/23 America Farmer NP [address] [place] [address] [email or web address] PCP - General Nurse Practitioner 06/06/23 07/28/24 Petty Almeida PA [address] [place] [address] PCP - General Physician Grievance Coordinator 07/29/24 Andrez Manrique MD [address] [place] [address] [place] [address] [email or web address] du Advanced Heart Failure and Transplant Cardiology 08/31/22 Andrez Kahn MD [address] [place] [address] Consulting Provider Cardiology 08/31/22 Luca Alfaro MD [address] [place] [address] [facility] Pediatric Cardiology 08/31/22 Andrez Osullivan MD [address] [place] [address] [email or web address]. [facility] Pediatric Cardiology 02/05/24 documented as of this encounter Additional Source Comments The information contained in this document represents components of the legal health record. It is not the complete legal health record.[facility]
--- OUTSIDE RECORDS SUMMARY | 2024-11-18 17:15 | XMS_ITS | Encounter Summary ---
Author Organization [facility] Address [address] [facility] [address] [place] [address] Phone Care Team Providers Care Casting Operator Helper Name Role Phone Loly Brush MD Primary Care Provider [phone] Andrez Manrique MD Unavailable [phone] Andrez Kahn MD Unavailable [phone] Luca Alfaro MD Unavailable [phone] Diogo Farmer NP Primary Care Provider Andrez Osullivan MD Unavailable [phone] Petty Almeida Primary Care Provide r Encounter Details Date Type Department Care Team (Late st Contact Info) Description 04/06/2023 Procedure Pass [facility] Cardiac Timing Machine Operator 75 [place] [address] Social History Tobacco Use Types Packs/Day Years [...] Health/Osteoporosis Ctr. and Bone Density Unit [address] [place] [address] Renetta Rosenbaum, ENDOCRINOLOGY TEACHER 75 [place] [address] [email or web address] 12/09/2024 8:00 AM EDT Office Visit [facility] Cardiac Transplant 70 [place] [address] Cornelio Dunham MD 75 [facility] [place] [address] [email or web address] 12/09/2024 9:00 AM EDT Office Visit [facility] Cardiac Transplant 70 [place] [address] Unknown, Natalie, 01/27/2025 4:40 PM EST Office Visit [facility] Medical Specialties 45 [facility]2 [place] [address] Jose Hidalgo MD, MPH 75 [place] [address] [email or web address] documented as of this encounter Visit Diagnoses Not on filedocumented in this encounter Additional Health Concerns Infection Onset Date Last Indicated Resolved Time CoV-Risk Comment:Per note documentation 06/06/2023 06/06/2023 4 [...] documented as of this encounter Care Teams Casting Operator Helper Relationship Specialty Start Date End Date Loly Brush MD 230 [place] [address] PCP - General 07/31/14 06/05/23 Diogo Farmer NP [address] [place] [address] [email or web address] PCP - General Nurse Practitioner 06/06/23 07/28/24 Petty Almeida PA [address] [place] [address] PCP - General Physician Potato Inspector 07/29/24 Andrez Manrique MD [address] [place] [address] [place] [address] [email or web address] du Advanced Heart Failure and Transplant Cardiology 08/31/22 Andrez Kahn MD [address] [place] [address] [email or web address] Consulting Provider Cardiology 08/31/22 Luca Alfaro MD [address] [place] [address] [email or web address] Pediatric Cardiology 08/31/22 [place] [address] [place] [address] [email or web address]. [facility] Pediatric Cardiology 02/05/24 documented as of this encounter Additional Source Comments The information contained in this document represents components of the legal health record. It is not the complete legal health record.[facility]
--- OUTSIDE RECORDS SUMMARY | 2024-11-18 17:15 | XMS_ITS ---
Author Organization [facility] Address [address] [facility] [address] [place] [address] Phone Care Team Providers Care Distillery Worker Name Role Phone Andrez Manrique MD Unavailable Andrez Kahn MD Unavailable Luca Alfaro MD Unavailable Andrez Osullivan MD Unavailable Petty Almeida Primary Care Provide r Transplant Episode Heart Recipient [facility] [place]) [facility] Received: Heart Transplanted on 11/04/2023 Marked as Active Follow-up on 11/04/2023 Heart CoordinatorNancy Hirsch RN Phone: N/A Fax: N/A Email: [place] Organ Diagnosis 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 History Noted Survival Infection Treatment Organism Resolved 02/18/2024 106 days Infected hematoma Donor Information Organ ABO Source Meets Risk Criteria HLA Match Mismatches Cross Match Heart Transplanted O DBD No A: B: DR: Heart Donor Serology Results Anti-CMV No results on file EBV IgG EBV VCA IgG: Positive Anti-HBcAb No results on file Anti-HIV I/II No results on file Anti-HTLV I/II No results on file RPR/VDRL No results on file HBsAb No results on file EBNA No results on file Anti-HCV No results on file HBsAg No results on file HBV DNA No results on file EBV IgM No results on file Toxoplasma No results on file Anti-Tetan us No results on file Varicella Zoster No results on file Measles No results on file Mumps No results on file Quantiferon TB No results on file HSV 1 No results on file HSV 2 No results on file HSV RNA No results on file EBV (historical) No results on file HCV KEE No results on file HIV KEE No results on file HBV KEE No results on file SARS CoV-2 SARS CoV-2 RNA: Negative Care Team Name Role Phone Fax Email Nancy Hirsch RN Lead Rider N/A N/A luca [email or web address] Tucker Selby General Laborer [phone] [email or web address]. [facility] Yessenia Schmitt [facility] Nurse Practitioner [phone] [email or web address] Karina Hernandez MD Psychiatrist [phone] [email or web address] Nedra Galicia, [facility] Pharmacist [phone] N/A [email or web address] Andrez Manrique MD Transplant Medical Physician [phone] [email or web address] Post-Transplant Pre-Transplant Admitted: 06/06/2023 Referred: 10/31/2022 Transplanted: 11/04/2023 Evaluation began: 3 Discharged: 01/19/2024 Committee: 02/10/2023 UNOS activated: 01/25/2023 Center waitlisted: 3 Appointments (10/18/2024 - 12/19/2024) When With Visit Type Description 10/28/2024 Gastro - Lucita Hidalgo RETURN PATIENT Canceled ( Personal Reasons) 11/14/2024 Cardiology - Caryn Degroot Echo Complete TTE Heart transplant status 11/14/2024 Cardiology - Tori Dunham nt Established Cardio 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); Immunosuppression; CKD stage 3b, GFR 30-44 ml/min 11/14/2024 Cardiology Transplant Estab lished Cardio Canceled (Institution - Appt Made in Error) 11/28/2024 Cardiology Echo Complete TTE Canceled ( Provider - Professional) 11/28/2024 Endo BD DXA SCREENING 11/28/2024 Cardiology Transplant Established Cardi o Canceled (Provider - Professional) 12/09/2024 Cardiology Transplant Estab lished Cardio 12/09/2024 Cardiology Transplant Estab lished Cardio
--- OUTSIDE RECORDS SUMMARY | 2024-11-18 17:15 | XMS_ITS | Encounter Summary ---
Author Organization [facility] Address [address] [facility] [address] [place] [address] Phone Care Team Providers Care Ambulance Driver Paramedic Name Role Phone Loly Brush MD Primary Care Provider [phone] Andrez Manrique MD Unavailable [phone] Andrez Kahn MD Unavailable [phone] Luca Alfaro MD Unavailable [phone] America Farmer NP Primary Care Provider Andrez Osullivan MD Unavailable [phone] Petty Almeida Primary Care Provide r Encounter Details Date Type Department Care Team (Late st Contact Info) Description 03/28/2023 Anti-coag visit VIRTUAL DEPARTMENT Unknown, Unknown, Social [...] Date of Assessment Author No Risk Indicated 03/28/2023 3:34 PM Cinthia Griffin RN * [place] Suicide Severity Rating Scale (Screener/Recent Self-Report) Question Answer Date of Assessment Author 1. Wish to be (Past 1 Month) No 03/28/2023 3:34 PM Elio Maddox RN 2. Non-Specific Active Suicidal Thoughts (Past 1 Month) No 03/28/2023 3:34 PM Elio Maddox RN 6. Suicidal Behavior (Lifetime) No 03/28/2023 3:34 PM Elio Maddox RN documented as of this encounter Plan of Treatment Upcoming Encounters Date Type Department Care Team (Late st Contact Info) Description 11/28/2024 10:20 AM EDT Appointment [facility] Skeletal Health/Osteoporosis Ctr. and Bone Density Unit [address] [place] [address] Renetta Rosenbaum, MARVIN [address] [place] [address] [email or web address] 12/09/2024 8:00 AM EDT Office Visit [facility] Cardiac Transplant 70 [place] [address] Cornelio Dunham MD 75 [facility] [place] [address] [email or web address] 12/09/2024 9:00 AM EDT Office Visit [facility] Cardiac Transplant 70 [place] [address] Natalie Estrada MD 01/27/2025 4:40 PM EST Office Visit [facility] Specialties 45 [facility] ASB2-2 [place] [address] Jose Hidalgo MD, MPH 75 [facility] [address] [email or web address] documented as of this encounter Visit Diagnoses [...] documented as of this encounter Care Teams Ambulance Driver Paramedic Relationship Specialty Start Date End Date Loly Brush MD [address] [place] [address] PCP - General 07/31/14 06/05/23 America Farmer NP [address] [place] [address] [email or web address] [employer] PCP - General Nurse Practitioner 06/06/23 07/28/24 Petty Almeida PA [address] [place] [address] PCP - General Physician Offset Machine Operator 07/29/24 Andrez Manrique MD [address] [place], [place] [address]am [place] [address] [email or web address] du Advanced Heart Failure and Transplant Cardiology 08/31/22 Andrez Kahn MD [address] [place] [address] [email or web address] Consulting Provider Cardiology 08/31/22 Luca Alfaro MD [address] [place] [address] [email or web address] Pediatric Cardiology 08/31/22 Andrez Osullivan MD [address] [place] [address] [email or web address] [email or web address] Pediatric Cardiology 02/05/24 documented as of this encounter Additional Source Comments The information contained in this document represents components of the legal health record. It is not the complete legal health record.[facility]
--- OUTSIDE RECORDS SUMMARY | 2024-11-18 17:15 | XMS_ITS | Encounter Summary ---
Author Organization [facility] Address [address] [facility] [address] [place] [address] Phone Care Team Providers Care Client Account Manager Name Role Phone Loly Brush MD Primary Care Provider [phone] Andrez Manrique MD Unavailable [phone] Andrez Kahn MD Unavailable [phone] Luca Alfaro MD Unavailable [phone] America Farmer NP Primary Care Provider Andrez Osullivan MD Unavailable Petty Almeida Primary Care Provide r Encounter Details Date Type Department Care Team (Late st Contact Info) Description 05/02/2023 Anti-coag visit VIRTUAL DEPARTMENT Unknown, Unknown, Social [...] Info) Description 11/28/2024 10:20 AM EDT Appointment [facility] Skeletal Health/Osteoporosis Ctr. and Bone Density Unit [address] [place] [address] Renetta Rosenbaum, TRUCK LOADER 75 [place] [address] [email or web address] BRIGETTE 12/09/2024 8:00 AM EDT Office Visit [facility] Cardiac Transplant 70 [place] [address] Cornelio Dunham MD 75 [facility] [place] [address] [email or web address] 12/09/2024 9:00 AM EDT Office Visit [facility] Cardiac Transplant 70 [place] [address] Unknown, Natalie, 01/27/2025 4:40 PM EST Office Visit [facility] Medical Specialties 45 [facility]2 [place] [address] Jose Hidalgo MD, MPH 75 [facility] [place] [address] [email or web address] documented as of this encounter Visit Diagnoses Not on filedocumented in this encounter Additional Health Concerns Infection Onset Date Last Indicated Resolved Time CoV-Risk Comment:Per note documentation 06/06/2023 06/06/2023 8:14 PM EDT CoV-Risk Comment:Per note documentation 10/23/2023 10/23/2023 7:03 AM EDT CDiff-Risk 11/13/2023 11/13/2023 11/14/2023 9:39 AM EDT 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 CDiff-Risk 11/19/2023 11/19/2023 11/20/2023 9:44 AM EDT CDiff-Risk 11/25/2023 11/25/2023 11/27/2023 12:2 7 PM EDT 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 03/18/2024 CDiff-Risk 12/06/2023 12/06/2023 12/08/2023 2:2 9 PM EDT CRE 12/14/2023 01/31/2024 TB-Risk Comment:Primary [...] documented as of this encounter Care Teams Client Account Manager Relationship Specialty Start Date End Date Loly Brush MD [address] [place] [address] PCP - General 07/31/14 06/05/23 America Farmer NP [address] [place] [address] [email or web address] PCP - General Nurse Practitioner 06/06/23 07/28/24 Petty Almeida PA [address] [place] [address] PCP - General Physician Shipwright Supervisor 07/29/24 Andrez Manrique MD [address] [place] [address] [email or web address]. du Advanced Heart Failure and Transplant Cardiology 08/31/22 Andrez Kahn MD [address] [place] [address] [email or web address] Consulting Provider Cardiology 08/31/22 Luca Alfaro MD [address] [place] [address] [email or web address] Pediatric Cardiology 08/31/22 [place] [address] [place] [address] [email or web address]. [facility] Pediatric Cardiology 02/05/24 documented as of this encounter Additional Source Comments The information contained in this document represents components of the legal health record. It is not the complete legal health record.[facility]
--- OUTSIDE RECORDS SUMMARY | 2024-11-18 17:15 | XMS_ITS | Encounter Summary ---
Author Organization [facility] Address [address] [place] [address] [place] [address] Phone Care Team Providers Care Employee Health Rn Name Role Phone Loly Brush MD Primary Care Provider [phone] Andrez Manrique MD Unavailable [phone] Andrez Kahn MD Unavailable [phone] Luca Alfaro MD Unavailable [phone] America Farmer NP Primary Care Provider Andrez Osullivan MD Unavailable [phone] Petty Almeida Primary Care Provide r Encounter Details Date Type Department Care Team (Latest Contact Info) Description 03/21/2018 Transcribe Orders [facility] Cardiovascular Clinic [address] [place] [address] Marylou Rojas [address] [place] [address] [email or web address] Heart failure, unspecified HF chronicity, unspecified heart failure type (Primary Dx) Social History Tobacco Use Types Packs/Day Years Used Date Smoking Tobacco: Never Comments Unknown Sex and Gender Information Value Date Recorded Sex Assigned at Female 01/13/2022 9:57 AM EDT Legal Sex Female 7:53 PM EST Gender Identity Female 01/13/2022 9:57 AM EDT Sexual Orientation Straight 01/13/2022 9: 57 AM EDT documented as of this encounter Plan of Treatment Upcoming Encounters Date Type Department Care Team (Late st Contact Info) Description 11/28/2024 10:20 AM EDT Appointment [facility] Skeletal Health/Osteoporosis Ctr. and Bone Density Unit [address] [place] [address] Renetta Rosenbaum, MARVIN [address] [place] [address] [email or web address] BRIGETTE 12/09/2024 8:00 AM EDT Office Visit [facility] Cardiac Transplant [address] [place] [address] Cornelio Dunham MD [address] [place] [address] [place] [address] [email or web address] 12/09/2024 9:00 AM EDT Office Visit [facility] Cardiac Transplant [address] [place] [address] Unknown, Natalie, 01/27/2025 4:40 PM EST Office Visit [facility] Medical Specialties [address] [address] [place] [address] Jose Hidalgo MD, MPH 75 [facility] [place] [address] [email or web address] documented as of this encounter Visit Diagnoses Diagnosis Heart failure, unspecified HF chronicity, unspecified heart failure type- Primary documented in this encounter Additional Health Concerns 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[facility] Supplemental Conversion 09/02/20 - Meets time based criteria for VRE infection status resolution (>1 year since last positive VRE isolate) - Shelli 09/29/2006 09/29/2006 09/02/2020 4:45 PM E DT CoV-Risk Comment:Per note documentation 02/08/2023 02/08/2023 2:48 PM EST CoV-Risk Comment:Per note documentation [...] documented as of this encounter Care Teams Employee Health Rn Relationship Specialty Start Date End Date Loly Brush MD [address] [place] [address] PCP - General 07/31/14 06/05/23 America Farmer NP [address] [place] [address] PCP - General Nurse Practitioner 06/06/23 07/28/24 Petty Almeida PA [address] [place] [address] PCP - General Physician Pediatric Social Worker 07/29/24 Andrez Manrique MD [address] [place] [address] [place] [address] [email or web address]. du Advanced Heart Failure and Transplant Cardiology 08/31/22 Andrez Kahn MD [address] [place] [address] Consulting Provider Cardiology 08/31/22 Luca Alfaro MD [address] [place] [address] [facility] Pediatric Cardiology 08/31/22 Andrez Osullivan MD [address] [place] [address] [email or web address]. [facility] Pediatric Cardiology 02/05/24 documented as of this encounter Additional Source Comments The information contained in this document represents components of the legal health record. It is not the complete legal health record.[facility]
--- OUTSIDE RECORDS SUMMARY | 2024-11-18 17:15 | XMS_ITS | Encounter Summary ---
Author Organization [facility] Address [address] [place] [address] [place] [address] Phone Care Team Providers Care Brim Presser Name Role Phone Loly Brush MD Primary Care Provider [phone] Andrez Manrique MD Unavailable Andrez Kahn MD Unavailable [phone] Luca Alfaro MD Unavailable [phone] Diogo Farmer NP Primary Care Provider Andrez Osullivan MD Unavailable Petty Almeida Primary Care Provide r Encounter Details Date Type Department Care Team (Late st Contact Info) Description 07/30/2020 Transcribe Orders [facility] Clinic [address] [place] [address] Zulay Celis MA [email or web address] Social History Tobacco Use Types Packs/Day Years [...] Info) Description 11/28/2024 10:20 AM EDT Appointment [facility] Skeletal Health/Osteoporosis Ctr. and Bone Density Unit [address] [place] [address] Renetta Rosenbaum, MARVIN [address] [place] [address] [email or web address] 12/09/2024 8:00 AM EDT Office Visit [facility] Cardiac Transplant [address] [place] [address] Cornelio Dunham MD 75 [facility] [place] [address] [email or web address] 12/09/2024 9:00 AM EDT Office Visit [facility] Cardiac Transplant [address] [place] [address] Unknown, Unknown, 01/27/2025 4:40 PM EST Office Visit [facility] Medical Specialties [address] [place] [address] Jose Hidalgo MD, MPH [address] [place] [address] [email or web address] documented as of this encounter Visit Diagnoses Not on filedocumented in this encounter Additional Health Concerns 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[facility] [place] Conversion 09/02/20 - Meets time based criteria for VRE infection status resolution (>1 year since last positive VRE isolate) - Shelli 09/29/2006 09/29/2006 09/02/2020 4:45 PM E DT CoV-Risk Comment:Per note documentation 02/08/2023 02/08/2023 3 [...] documented as of this encounter Care Teams Brim Presser Relationship Specialty Start Date End Date Loly Brush MD [address] [place] [address] PCP - General 07/31/14 06/05/23 Diogo Farmer NP [address] [place] [address] [email or web address] PCP - General Nurse Practitioner 06/06/23 07/28/24 Petty Almeida PA [address] [place] [address] PCP - General Physician Rn Transport 07/29/24 Andrez Manrique MD [address] [place] [address] [place] [address] [email or web address] Advanced Heart Failure and Transplant Cardiology 08/31/22 Andrez Kahn MD [address] [place] [address] [email or web address] Consulting Provider Cardiology 08/31/22 Luca Alfaro MD [address] [place] [address] [email or web address] Pediatric Cardiology 08/31/22 [place] [address] [place] [address] [email or web address] Pediatric Cardiology 02/05/24 documented as of this encounter Additional Source Comments The information contained in this document represents components of the legal health record. It is not the complete legal health record.[facility]
--- OUTSIDE RECORDS SUMMARY | 2024-11-18 17:16 | XMS_ITS | Encounter Summary ---
Author Organization [facility] Address [address] [facility] [address] [place] [address] Phone Care Team Providers Care Surveyor Helper Name Role Phone Loly Brush MD Primary Care Provider Andrez Manrique MD Unavailable Andrez Kahn MD Unavailable Luca Alfaro MD Unavailable [phone] America Farmer NP Primary Care Provider Andrez Osullivan MD Unavailable Petty Almeida Primary Care Provide r Encounter Details Date Type Department Care Team (Late st Contact Info) Description 07/30/2020 Procedure Pass [facility] Echocardiography [address] [place] [address] Social History Tobacco Use Types Packs/Day Years [...] Info) Description 11/28/2024 10:20 AM EDT Appointment [facility] Skeletal Health/Osteoporosis Ctr. and Bone Density Unit [address] [place] [address] Renetta Rosenbaum, MARVIN [address] [place] [address] [email or web address] [email or web address] 12/09/2024 8:00 AM EDT Office Visit [facility] Cardiac Transplant [address] [place] [address] Cornelio Dunham MD 75 [facility] [place] [address] [email or web address] 12/09/2024 9:00 AM EDT Office Visit [facility] Cardiac Transplant [address] [place] [address] Unknown, Natalie, 01/27/2025 4:40 PM EST Office Visit [facility] Medical Specialties 45 [facility]2 [place] [address] Jose Hidalgo MD, MPH [address] [place] [address] [email or web address] documented as of this encounter Visit Diagnoses Not on filedocumented in this encounter Additional Health Concerns 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[facility] Supplemental Conversion 09/02/20 - Meets time based [...] documented as of this encounter Care Teams Surveyor Helper Relationship Specialty Start Date End Date Loly Brush MD [address] [place] [address] PCP - General 07/31/14 06/05/23 America Farmer NP [address] [place] [address] [email or web address] PCP - General Nurse Practitioner 06/06/23 07/28/24 Petty Almeida PA [address] [place] [address] PCP - General Physician Manager Creative 07/29/24 Andrez Manrique MD [address] [place] [address] [email or web address] Advanced Heart Failure and Transplant Cardiology 08/31/22 Andrez Kahn MD [address] [place] [address] [email or web address] Consulting Provider Cardiology 08/31/22 Luca Alfaro MD [address] [place] [address] [email or web address] Pediatric Cardiology 08/31/22 [place] [address] [place] [address] [email or web address] Pediatric Cardiology 02/05/24 documented as of this encounter Additional Source Comments The information contained in this document represents components of the legal health record. It is not the complete legal health record.[facility]
--- OUTSIDE RECORDS SUMMARY | 2024-11-18 17:16 | XMS_ITS | Encounter Summary ---
Author Organization [facility] Address [address] [place] [address] [place] [address] Phone Care Team Providers Care Heating Element Repairer Name Role Phone Loly Brush MD Primary Care Provider [phone] Andrez Manrique MD Unavailable [phone] Andrez Kahn MD Unavailable [phone] Luca Alfaro MD Unavailable [phone] America Farmer NP Primary Care Provider Andrez Osullivan MD Unavailable [phone] Petty Almeida Primary Care Provide r Reason for Referral * Outpatient Procedure - Closed Specialty Diagnoses / Procedures Referred By Jimmy t Referred To Contact Diagnoses Heart failure, unspecified HF chronicity, unspecified heart failure type Procedures Adult Echo TTE Andrez Manrique MD Phone: tel: fax: mailto:[email or web address] Referral ID Status Reason Start Date Expiration Date Visits Re quested Visits Authorized [id number] Closed 07/30/2020 07/30/2021 1 1 Encounter Details Date Type Department Care Team (Latest Contact Info) Description 07/30/2020 Transcribe Orders [facility] [address] [place] [address] Zulay Celis MA [email or web address] Heart failure, unspecified HF chronicity, unspecified heart [...] Info) Description 11/28/2024 10:20 AM EDT Appointment [facility] Skeletal Health/Osteoporosis Ctr. and Bone Density Unit [address] [place] [address] Renetta Rosenbaum, ANIMAL ASSISTANT [address] [place] [address] [email or web address] 12/09/2024 8:00 AM EDT Office Visit [facility] Cardiac Transplant [address] [place] [address] Cornelio Dunham MD 75 [facility] [place] [address] [email or web address] 12/09/2024 9:00 AM EDT Office Visit [facility] Cardiac Transplant [address] [place] [address] Natalie, MD Natalie 01/27/2025 4:40 PM EST Office Visit [facility] 45 [facility]2 [place] [address] Jose Hidalgo MD, MPH 75 [facility] [place] [address] [email or web address] documented as of this encounter Results * CONGENITAL TTE COMPREHENSIVE W/ COLOR FLOW AND COMPLETE DOPPLER (08/04/2020 11:58 AM EDT) Left Ventricle Internal Diameter End Diastole 67 37 - 52 mm Left Ventricle Internal Diameter End Systole 60 22 - 35 mm Raw LV EF% 20 % Ejection Fraction 21 50 - 75 % Left Ventricular Mass 210.17 g Left Ventricle indexed to BSA 123.63 g/mL Relative Wall Thickness 0.20 0.22 - 0.42 Body Surface Area 1.7 m2 Left Ventricle E Wave Speed 101.14 cm/s Left Ventricle A Wave Speed 60.29 cm/s Mitral Valve Deceleration Time 151.30 ms Left Ventricle Diastolic Volume 211.05 mL Left Ventricle Systolic Volume 185.81 mL Left Ventricle Systolic Volume Index 109.30 mL/m2 Left Ventricle Diastolic Volume Index 124.15 mL/m2 Aortic Sinus Diameter 38 mm Mitral Valve Area Pressure Half Time Eq 5.01 cm2 Tricuspid Valve Peak Gradient 44.07 mmhg Left Atrium Dimension Anterior-Posterior 48 15 - 40 mm Tricuspid Valve Peak Velocity 3.47 m/s Right Ventricle Peak Systolic Pressure 58 mmHg Right Ventricle Estimated PA Pressure 54.07 mmHg Right Atrium Pressure Estimated 10 mmHg Right Ventricle to Right Atrium Pressure Gradient 48 mmHg Height 160 cm Weight 66 kg Systolic BP 99 mmHg Diastolic BP 62 mmHg Pulmonic Valve Prosthetic Mean Gradient 19 mmHg Pulmonic Valve Prosthetic Peak Gradient 36 mmHg Ascending Aorta Diameter 31 mm Left Ventricular Posterior Wall Thickness 7 mm Interventricular Septum Thickness 8 mm Right Ventricle Linear Dimension 34 mm Aortic Valve Sinus Index 1 22 19 - 27 mm Ascending Aorta Diameter 18 mm Aortic Sinus Index 22 mm Ascending Aorta Index 18 mm Left Atrial Volume 101 mL Left Atrial Volume Index 59.41 mL/m2 Anatomical Region Laterality Modality Heart [facility] Narrative 08/05/2020 6:48 PM EDT Left Ventricle The left ventricular cavity is moderately dilated. The left ventricular wall thickness is normal. Left ventricular systolic function is severely impaired. There are no segmental left ventricular wall motion abnormalities noted. The left ventricle is diffusely hypokinetic with regional variation. The estimated ejection fraction is 21% (Normal 50-75%). The left ventricular ejection fraction was measured by the bi-plane method of discs. Bright echo in apex that may represent false tendon or calcified trabecula. In comparison with prior [facility] images, prominent trabecula were noted, but imaging technique precludes accurate comparison. Right Ventricle The right ventricular size is normal. Right ventricular systolic function is at the lower limits of normal. There is a pacer/ICD wire noted in the right heart. Left Atrium The left atrium is severely dilated. Right Atrium The right atrium is moderately dilated. The IVC is normal in size (2.1cm or less). The IVC demonstrates reduced collapse with inspiration which is consistent with elevated RA pressure. There is a pacer/ICD wire noted in the right atrium. Mitral Valve There is mild diffuse thickening of the mitral valve leaflet. There is mild to moderate mitral regurgitation detected by spectral and color Doppler. Tricuspid Valve There is evidence of mild tricuspid regurgitation by color and spectral Doppler. The RV systolic pressure was estimated from the peak TV regurgitant velocity. The estimated RV systolic pressure is 58 mmHg assuming a right atrial pressure of 10 mmHg. Aortic Valve There is mild thickening of multiple aortic leaflets. There is no evidence of valvular aortic stenosis. There is evidence of mild aortic regurgitation by color and spectral Doppler. Pulmonic Valve Mitroflow valve leaflets are significantly thickened. Peak gradient of 34 mmHg, mean 19 mmHg. There is evidence of mild pulmonary regurgitation by color and spectral Doppler. Pericardium There is no evidence of pericardial effusion. Interventricular Septum Turbulent flow noted at the VSD patch. Cannot exclude a small residual VSD. 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 Note the patient's info is at [facility] under (different name) Comparison Findings No prior [facility] studies, findings are similar to prior [facility] echo, though comparison limited by differences in technique. 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[facility] Supplemental Conversion 09/02/20 - Meets time based [...] documented as of this encounter Care Teams Heating Element Repairer Relationship Specialty Start Date End Date Loly Brush MD [address] [place] [address] PCP - General 07/31/14 06/05/23 America Farmer NP [address] [place] [address] [email or web address] PCP - General Nurse Practitioner 06/06/23 07/28/24 Petty Almeida PA [address] [place] [address] PCP - General Physician Patroller 07/29/24 Andrez Manrique MD [address] [place] [address] [place] [address] [email or web address] du Advanced Heart Failure and Transplant Cardiology 08/31/22 Andrez Kahn MD [address] [place] [address] [email or web address] Consulting Provider Cardiology 08/31/22 Luca Alfaro MD [address] [place] [address] [email or web address] Pediatric Cardiology 08/31/22 Andrez Osullivan MD [address] [place] [address] [email or web address] Pediatric Cardiology 02/05/24 documented as of this encounter Additional Source Comments The information contained in this document represents components of the legal health record. It is not the complete legal health record.[facility]
--- OUTSIDE RECORDS SUMMARY | 2024-11-18 17:16 | XMS_ITS | Encounter Summary ---
Author Organization [facility] Address [address] [facility] [address] [place] [address] Phone Care Team Providers Care Help Desk Operator Name Role Phone Loly Brush MD Primary Care Provider [phone] Andrez Manrique MD Unavailable Andrez Kahn MD Unavailable [phone] Luca Alfaro MD Unavailable [phone] America Farmer NP Primary Care Provider Andrez Osullivan MD Unavailable Petty Almeida Primary Care Provide r Encounter Details Date Type Department Care Team (Late st Contact Info) Description 08/31/2020 Procedure Pass [facility] [address] [place], [place] [id number] Social History Tobacco Use Types Packs/Day Years Used Date Smoking Tobacco: Never Smokeless Tobacco: Never Comments Unknown Sex and Gender Information Value Date Recorded Sex Assigned at Female 01/13/2022 9:57 AM EDT Legal Sex Female 7:53 PM EST Gender Identity Female 01/13/2022 9:57 AM EDT Sexual Orientation Straight 01/13/2022 9: 57 AM EDT documented as of this encounter Functional Status * Calculated C-SSRS Risk Score (Lifetime/Recent) Answer Date of Assessment Author No Risk Indicated 08/31/2020 7:56 PM EDT Halie Leyva RN * Hartman Suicide Severity Rating Scale (Screener/Recent Self-Report) Question Answer Date of Assessment Author 1. Wish to be (Past 1 Month) No 021 7:56 PM EDT Halie Leyva RN 2. Non-Specific Active Suici scott Thoughts (Past 1 Month) No 08/31/2020 7:56 PM EDT Halie Leyva RN 6. Suicidal Behavior (Lifetime) No 7:56 PM EDT Halie Leyva RN documented as of this encounter Plan of Treatment Upcoming Encounters Date Type Department Care Team (Late st Contact Info) Description 11/28/2024 10:20 AM EDT Appointment [facility] Skeletal Health/Osteoporosis Ctr. and Bone Density Unit [address] [place] [address] Renetta Rosenbaum, SHOEBLACK [address] [place] [address] [email or web address] 12/09/2024 8:00 AM EDT Office Visit [facility] Cardiac Transplant [address] [place] [address] Cornelio Dunham MD [address] [place] [address] [place] [address] [email or web address] 12/09/2024 9:00 AM EDT Office Visit [facility] Cardiac Transplant [address] [place] [address] Natalie, MD Natalie 01/27/2025 4:40 PM EST Office Visit [facility] Medical Specialties [address] [address] [place] [address] Jose Hidalgo MD, MPH 75 [facility] [place] [address] [email or web address] documented as of this encounter Visit Diagnoses Not on filedocumented in this encounter Additional Health Concerns 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[facility] Supplemental Conversion 09/02/20 - Meets time based [...] documented as of this encounter Care Teams Help Desk Operator Relationship Specialty Start Date End Date Loly Brush MD [address] [place] [address] PCP - General 07/31/14 06/05/23 America Farmer NP [address] [place] [address] [email or web address] [email or web address] PCP - General Nurse Practitioner 06/06/23 07/28/24 Petty Almeida PA [address] [place] [address] PCP - General Physician Letterpress Printing Machinist 07/29/24 Andrez Manrique MD [address] [place] [address] [place] [address] [email or web address] Advanced Heart Failure and Transplant Cardiology 08/31/22 Andrez Kahn MD [address] [place] [address] Consulting Provider Cardiology 08/31/22 Luca Alfaro MD [address] [place] [address] [email or web address] Pediatric Cardiology 08/31/22 Andrez Osullivan MD [address] [place] [address] [email or web address] Pediatric Cardiology 02/05/24 documented as of this encounter Additional Source Comments The information contained in this document represents components of the legal health record. It is not the complete legal health record.[facility]
--- OUTSIDE RECORDS SUMMARY | 2024-11-18 17:16 | XMS_ITS | Encounter Summary ---
Author Organization [facility] Address [address] [place] [address] Phone Care Team Providers Care Die Cast Supervisor Name Role Phone Loly Brush MD Primary Care Provider [phone] Andrez Manrique MD Unavailable [phone] Andrez Kahn MD Unavailable [phone] Luca Alfaro MD Unavailable [phone] America Farmer NP Primary Care Provider Andrez Osullivan MD Unavailable [phone] Petty Almeida Primary Care Provide r Reason for Referral * Outpatient Procedure - Closed Specialty Diagnoses / Procedures Referred By Contashley t Referred To Contact Diagnoses Heart failure, unspecified HF chronicity, unspecified heart failure type Procedures Cardiopulmonary Exercise Stress Test-Level 1 Andrez Manrique MD Phone: tel: fax: mailto:[email or web address] Referral ID Status Reason Start Date Expiration Date Visits Re quested Visits Authorized [id number] Closed 07/30/2020 07/30/2021 1 1 Encounter Details Date Type Department Care Team (Latest Contact Info) Description 07/30/2020 Transcribe Orders [facility] [address] [place] [address] Zulay Celis MA [email or web address] Heart failure, unspecified HF chronicity, unspecified [...] 11/28/2024 10:20 AM EDT Appointment [facility] Skeletal Health/Osteoporosis Ctr. and Bone Density Unit [address] [place] [address] Renetta Rosenbaum, BROADCAST OPERATIONS MANAGER [address] [place] [address] [email or web address] 12/09/2024 8:00 AM EDT Office Visit [facility] Cardiac Transplant [address] [place] [address] Cornelio Dunham MD 75 [facility] [place] [address] [email or web address] 12/09/2024 9:00 AM EDT Office Visit [facility] Cardiac Transplant [address] [place] [address] Natalie, MD Natalie 01/27/2025 4:40 PM EST Office Visit [facility] Medical Specialties [address] [facility]2 [place] [address] Jose Hidalgo MD, MPH 75 [facility] [place] [address] [email or web address] documented as of this encounter Results * CARDIOPULMONARY LEVEL 1 W/O GAS (08/04/2020 10:46 AM EDT) Anatomical Region Laterality Modality Heart [facility] 08/04/2020 10:0 0 AM EDT Narrative 08/04/2020 11:[address] Manrique, Your patient Fidelina Perry, a 39 year old female with no known CAD was referred to us for a cardiopulmonary exercise ramp cycle test to evaluate for CHF and transposition of the great arteries. Her cardiopulmonary risk factors include hypertension. The patient's resting ECG showed normal sinus rhythm, RBBB, LAHB and poor R wave progression. She was on the following medications at the time of testing: Digoxin, Metoprolol, Furosemide, Aspirin. Exercise Stress Protocol: Ms. Perry exercised for 3:50 minutes of a 15-watt/min ramp cycle protocol to a maximum of 56 bajwa. Oxygen saturation was measured at rest and stress using a pulse-oximeter. The heart rate increased from 76 bpm at rest to a peak heart rate of 125 bpm (68% age predicted maximal heart rate), and the blood pressure increased from 92/70 mm Hg at rest to 100/70 mm Hg at peak exercise (RPP: 51709). Oxygen saturation remained unchanged at 98% during exercise. Exercise was terminated due to moderate or severe chest pain and lightheadedness. The symptomatic response to exercise was ischemic due to typical chest pain, which started 3:40 minutes into the test and resolved 5:00 minutes into recovery. lightheadedness. The blood pressure response was blunted. The ECG response to exercise was non-diagnostic. During exercise, PVCs were observed. = ANTHROPOMETRICS = Age: 39 Gender: Female Height: 63 in/160 cm Weight: 135 lb/61 kg BMI: 23.9 kg/m2 Hgb: = EXERCISE CAPACITY = Exercise Protocol: 15 bajwa/min Maximum Bajwa Achieved: 56 bajwa Exercise Duration: 3:50 (min:sec) Reason to End Exercise: Moderate or severe chest pain an Predicted Measured % of Predicted Rest VO2 (mL/min) 310 AT VO2 (mL/min) >40% of Peak VO2 465 27% Peak VO2 (mL/min) 1719 618 36% Peak VO2/kg(mL/kg/min) 10.1 = CARDIOVASCULAR RESPONSE = Symptomatic Response: Ischemic due to typical chest pain, which started 3:40 minutes into the test and resolved 5:00 minutes into recovery. lightheadedness. Blood Pressure Response: Blunted. ECG Response: Was non-diagnostic. Stress Induced Arrhythmias: During exercise, PVCs were observed. Predicted Measured % of Predicted Rest Heart Rate (bpm) 76 Peak Heart Rate (bpm) 183 125 68% HR Wendell (bpm) 107 HR Recovery (1 min) > 12 18 Rest Blood Press (mm Hg) 92/70 Peak Blood Press (mm Hg) 100/70 Peak O2 Pulse (mL/beat) 9.4 4.9 52% ^VO2/^WR (mL/min/watt) > 10.2 +/- 1 5.5 ^HR/^VO2 < 50 146.1 Cardiac Output (Qt) 12.3 Rest RER 0.88 Peak RER 1.27 Hemodynamic Stage Data: Intensity Heart Blood RPE Speed (Grade Rate Pressure (Scale (MPH) or Bajwa) (bmp) (mm Hg) of 10) BASELINE Supine 76 92/70 Sitting 80 102/78 STRESS Stage 1 45 112 100/72 Stage 2 56 125 100/70 RECOVERY IPE Standing 122 IPE Supine 113 1 Minute 107 108/70 3 Minute 83 5 Minute 76 100/76 = VENTILATORY RESPONSE = Measured Percent VE/VCO2 ([place]) 39.48 VE @ AT 16 VE @ Peak 27.8 = GAS EXCHANGE VARIABLES = Rest Peak SpO2% 98% 97% In summary, the test results were: 1. Functional Capacity: Peak VO2 is 10.1 mL/kg/min (2.9 METS), which is 36% of predicted based on the patient's body weight and sex using the Liliana formula. 2. Anaerobic Threshold: The anaerobic threshold was achieved, but occurred earlier than predicted. 3. Peak Heart Rate: 125 bpm (68% age-predicted maximal heart rate). 4. Symptomatic Response: Ischemic based on the presence of cardiac angina that occurred during exercise, which resolved by 5:00 min:sec in recovery and lightheadedness. 5. Peak Blood Pressure: 100/70 mm Hg. 6. Blood Pressure Response: Blunted. 7. ECG Response: Non-diagnostic due to baseline ST segment abnormalities in the setting of current digoxin use. 8. Stress-induced Arrhythmia: PVCs. 9. VE/VCO2 [place]: Abnormal VE/VCO2 slope of 39.5 (defined as 35.0 - 40.0). 10. Hypoxemia: No resting or exertional hypoxemia (defined as rest O2 saturation >= 95% and peak O2 saturation >= 93%). CONCLUSION: 1. Exercise effort was adequate based on RER that was at least 1.05 (RER = 1.27). The functional capacity was severely decreased based on peak VO2 that was 36% of predicted. 2. Non-diagnostic test for myocardial ischemia due to baseline ECG abnormalities and current digoxin therapy. 3. The anaerobic threshold was early. 4. Abnormal VE/VCO2 slope. 5. The blood pressure and heart rate responses to exercise were blunted. 6. Severe chest pain and lightheadedness with exertion. 7. The peak O2 pulse is decreased. A prior MVO2 study was not available for comparison. Critical test results communicated to Dr. Manrique on 08/04/2020 at 10:50 AM. NOTES FOR INTERPRETATION 1. Decreased O2 pulse may reflect abnormal changes in left ventricular stroke volume during exercise when measured in the absence of anemia or primary skeletal muscle dysfunction. Stress ECG tracings available from [facility]'s [employer]. Thank you for referring this patient to us. Sincerely yours, Kennedy Flores M.D., Attending Physician Interpreted and reported the study findings Chadwick Ware M.D., Attending Physician Supervised the exercise test Procedure Note Kennedy Flores MD - 08/04/[address] Manrique, Your patient Fidelina Perry, a 39 year old female with no known CAD wasreferred to us for a cardiopulmonary exercise ramp cycle test to evaluatefor CHF and transposition of the great arteries. Her cardiopulmonary riskfactors include hypertension. The patient's resting ECG showed normal sinus rhythm, RBBB, LAHB and poorR wave progression. She was on the following medications at the time oftesting: Digoxin, Metoprolol, Furosemide, Aspirin. Exercise Stress Protocol: Ms. Perry exercised for 3:50 minutes of a 15-watt/min ramp cycle protocolto a maximum of 56 bajwa. Oxygen saturation was measured at rest andstress using a pulse- oximeter. The heart rate increased from 76 bpm atrest to a peak heart rate of 125 bpm (68% age predicted maximal heart rate), and the blood pressure increasedfrom 92/70 mm Hg at rest to 100/70 mm Hg at peak exercise (RPP: 99872).Oxygen saturation remained unchanged at 98% during exercise. Exercise was terminated due to moderate or severe chest pain andlightheadedness. The symptomatic response to exercise was ischemic due totypical chest pain, which started 3:40 minutes into the test and resolved5:00 minutes into recovery. lightheadedness. The blood pressure response was blunted. The ECGresponse to exercise was non-diagnostic. During exercise, PVCs wereobserved. = ANTHROPOMETRICS = Age: 39 Gender: Female Height: 63 in/160 cm Weight: 135 lb/61 kg BMI: 23.9 kg/m2 Hgb: = EXERCISE CAPACITY = Exercise Protocol: 15 bajwa/min Maximum Bajwa Achieved: 56 bajwa Exercise Duration: 3:50 (min:sec) Reason to End Exercise: Moderate or severe chest pain an Predicted Measured % of Predicted Rest VO2 (mL/min) 310 AT VO2 (mL/min) >40% of Peak VO2 465 27% Peak VO2 (mL/min) 1719 618 36% Peak VO2/kg(mL/kg/min) 10.1 = CARDIOVASCULAR RESPONSE = Symptomatic Response: Ischemic due to typical chest pain, which started 3:40 minutes into the test and resolved 5:00 minutes into recovery. lightheadedness. Blood Pressure Response: Blunted. ECG Response: Was non-diagnostic. Stress Induced Arrhythmias: During exercise, PVCs were observed. Predicted Measured % of Predicted Rest Heart Rate (bpm) 76 Peak Heart Rate (bpm) 183 125 68% HR Wendell (bpm) 107 HR Recovery (1 min) > 12 18 Rest Blood Press (mm Hg) 92/70 Peak Blood Press (mm Hg) 100/70 Peak O2 Pulse (mL/beat) 9.4 4.9 52% ^VO2/^WR (mL/min/watt) > 10.2 +/- 1 5.5 ^HR/^VO2 < 50 146.1 Cardiac Output (Qt) 12.3 Rest RER 0.88 Peak RER 1.27 Hemodynamic Stage Data: Intensity Heart Blood RPE Speed (Grade Rate Pressure (Scale (MPH) or Bajwa) (bmp) (mm Hg) of 10) BASELINE Supine 76 92/70 Sitting 80 102/78 STRESS Stage 1 45 112 100/72 Stage 2 56 125 100/70 RECOVERY IPE Standing 122 IPE Supine 113 1 Minute 107 108/70 3 Minute 83 5 Minute 76 100/76 = VENTILATORY RESPONSE = Measured Percent VE/VCO2 ([place]) 39.48 VE @ AT 16 VE @ Peak 27.8 = GAS EXCHANGE VARIABLES = Rest Peak SpO2% 98% 97% In summary, the test results were: 1. Functional Capacity: Peak VO2 is 10.1 mL/kg/min (2.9 METS), which is36% of predicted based on the patient's body weight and sex using theWasserman formula. 2. Anaerobic Threshold: The anaerobic threshold was achieved, butoccurred earlier than predicted. 3. Peak Heart Rate: 125 bpm (68% age-predicted maximal heart rate). 4. Symptomatic Response: Ischemic based on the presence of cardiac anginathat occurred during exercise, which resolved by 5:00 min:sec in recoveryand lightheadedness. 5. Peak Blood Pressure: 100/70 mm Hg. 6. Blood Pressure Response: Blunted. 7. ECG Response: Non-diagnostic due to baseline ST segment abnormalitiesin the setting of current digoxin use. 8. Stress-induced Arrhythmia: PVCs. 9. VE/VCO2 [place]: Abnormal VE/VCO2 slope of 39.5 (defined as 35.0 -40.0). 10. Hypoxemia: No resting or exertional hypoxemia (defined as rest P8ruwfeekysh >= 95% and peak O2 saturation >= 93%). CONCLUSION: 1. Exercise effort was adequate based on RER that was at least 1.05 (RER =1.27). The functional capacity was severely decreased based on peak RK2elwx was 36% of predicted. 2. Non-diagnostic test for myocardial ischemia due to baseline ECGabnormalities and current digoxin therapy. 3. The anaerobic threshold was early. 4. Abnormal VE/VCO2 slope. 5. The blood pressure and heart rate responses to exercise were blunted. 6. Severe chest pain and lightheadedness with exertion. 7. The peak O2 pulse is decreased. A prior MVO2 study was not available for comparison. Critical test results communicated to Dr. Manrique on 08/04/2020 at 10:50AM. NOTES FOR INTERPRETATION 1. Decreased O2 pulse may reflect abnormal changes in left ventricularstroke volume during exercise when measured in the absence of anemia orprimary skeletal muscle dysfunction. Stress ECG tracings available from [facility]'s [employer]. Thank you for referring this patient to us. 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 09/02/20 - Meets time based [...] documented as of this encounter Care Teams Die Cast Supervisor Relationship Specialty Start Date End Date Loly Brush MD [address] [place] [address] PCP - General 07/31/14 06/05/23 America Farmer NP [address] [place] [address] [email or web address] / cr[facility] [email or web address] PCP - General Nurse Practitioner 06/06/23 07/28/24 Petty Almeida PA [address] [place] [address] PCP - General Physician Flatbed Company Driver 07/29/24 Andrez Manrique MD [address] [place] [address] [place] [address] [email or web address] Advanced Heart Failure and Transplant Cardiology 08/31/22 Andrez Kahn MD [address] [place] [address] Consulting Provider Cardiology 08/31/22 Luca Alfaro MD [address] [place] [address] [address] [email or web address] Pediatric Cardiology 08/31/22 Andrez Osullivan MD [address] [place] [address] [email or web address] Pediatric Cardiology 02/05/24 documented as of this encounter Additional Source Comments The information contained in this document represents components of the legal health record. It is not the complete legal health record.[facility]
--- OUTSIDE RECORDS SUMMARY | 2024-11-18 17:16 | XMS_ITS | Encounter Summary ---
Author Organization [facility] Address [address] [facility] [address] [place] [address] Phone Care Team Providers Care Non Categorical Preschool Teacher Name Role Phone Loly Brush MD Primary Care Provider [phone] Andrez Manrique MD Unavailable [phone] Andrez Kahn MD Unavailable Luca Alfaro MD Unavailable [phone] America Farmer NP Primary Care Provider Andrez Osullivan MD Unavailable [phone] Petty Almeida Primary Care Provide r Reason for Visit * Reason Onset Date Comments Medication Prior Authorization 04/28/2023 f arxiga Encounter Details Date Type Department Care Team (Late st Contact Info) Description 04/28/2023 Telephone [facility] Cardiovascular Clinic [address] [place] [address] Renetta Irizarry [address] [facility]. 5th [place] [address] [email or web address] Medication Prior Authorization (xi) Social History Tobacco Use Types Packs/Day Years [...] AM EDT documented as of this encounter Progress Notes * Renetta Irizarry - 04/28/2023 2:54 PM EST documented in this encounter Plan of Treatment Upcoming Encounters Date Type Department Care Team (Late st Contact Info) Description 11/28/2024 10:20 AM EDT Appointment [facility] Skeletal Health/Osteoporosis Ctr. and Bone Density Unit [address] [place] [address] Renetta Rosenbaum, MARVIN [address] [place] [address] [email or web address] 12/09/2024 8:00 AM EDT Office Visit [facility] Cardiac Transplant [address] [place] [address] Cornelio Dunham MD 75 [facility] [place] [address] [email or web address] 12/09/2024 9:00 AM EDT Office Visit [facility] Cardiac Transplant [address] [place] [address] Natalie, MD Natalie 01/27/2025 4:40 PM EST Office Visit [facility] Medical Specialties [address] [facility] ASB2-2 [place] [address] Jose Hidalgo MD, MPH 75 [facility], [place] [address] [email or web address] documented as of this encounter [...] documented as of this encounter Care Teams Non Categorical Preschool Teacher Relationship Specialty Start Date End Date Loly Brush MD [address] [place] [address] PCP - General 07/31/14 06/05/23 America Farmer NP [address] [place] [address] [email or web address] PCP - General Nurse Practitioner 06/06/23 07/28/24 Petty Almeida PA [address] [place] [address] PCP - General Physician Corporate Relations Director 07/29/24 Andrez Manrique MD [address] [place] [address] [place] [address] [email or web address] Advanced Heart Failure and Transplant Cardiology 08/31/22 Andrez Kahn MD [address] [place] [address] Consulting Provider Cardiology 08/31/22 Luca Alfaro MD [address] [place] [address] Pediatric Cardiology 08/31/22 Andrez Osullivan MD [address] [place] [address] [email or web address] Pediatric Cardiology 02/05/24 documented as of this encounter Additional Source Comments The information contained in this document represents components of the legal health record. It is not the complete legal health record.[facility]
--- OUTSIDE RECORDS SUMMARY | 2024-11-18 17:17 | XMS_ITS | Encounter Summary ---
Author Organization [facility] Address [address] [facility] [address] [place] [address] Phone Care Team Providers Care Avionics Systems Engineer Name Role Phone Loly Brush MD Primary Care Provider [phone] Andrez Manrique MD Unavailable Andrez Kahn MD Unavailable Luca Alfaro MD Unavailable [phone] America Farmer NP Primary Care Provider Andrez Osullivan MD Unavailable [phone] Petty Almeida Primary Care Provide r Encounter Details Date Type Department Care Team (Late st Contact Info) Description 08/31/[address] [facility] Echocardiography [address] [place] [address] Social History Tobacco Use Types Packs/Day Years [...] 7:56 PM EDT Halie Leyva RN * [facility] Suicide Severity Rating Scale (Screener/Recent Self-Report) Question [...] Description 11/28/2024 10:[address] [facility] Skeletal Health/Osteoporosis Ctr. and Bone Density Unit [address] [place] [address] Renetta Rosenbaum, HOME THEATER EXPERIENCE EXPERT [address] [place] [address] [email or web address] 12/09/2024 8:00 AM EDT Office Visit [facility] Cardiac Transplant [address] [place] [address] Cornelio Dunham MD [address] [place] [address] [place] [address] [email or web address] 12/09/2024 9:00 AM EDT Office Visit 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 - Meets time based [...] documented as of this encounter Care Teams Avionics Systems Engineer Relationship Specialty Start Date End Date Loly Brush MD [address] [place] [address] PCP - General 07/31/14 06/05/23 America Farmer NP [address] [place] [address] [email or web address] PCP - General Nurse Practitioner 06/06/23 07/28/24 Petty Almeida PA [address] [place] [address] PCP - General Physician Mechanical Engineering Director 07/29/24 Andrez Manrique MD [address] [place] [address] [place] [address] [email or web address] Advanced Heart Failure and Transplant Cardiology 08/31/22 Andrez Kahn MD [address] [place] [address] Consulting Provider Cardiology 08/31/22 Luca Alfaro MD [address] [place] [address] [email or web address] Pediatric Cardiology 08/31/22 Andrez Osullivan MD [address] [place] [address] [email or web address] Pediatric Cardiology 02/05/24 documented as of this encounter Additional Source Comments The information contained in this document represents components of the legal health record. It is not the complete legal health record.[facility]
--- OUTSIDE RECORDS SUMMARY | 2024-11-18 17:17 | XMS_ITS | Encounter Summary ---
Author Organization [facility] Address [address] [facility] [address] [place] [address] Phone Care Team Providers Care Whale Fisherman Name Role Phone Loly Brush MD Primary Care Provider [phone] Andrez Manrique MD Unavailable Andrez Kahn MD Unavailable Luca Alfaro MD Unavailable [phone] Diogo Farmer NP Primary Care Provider Andrez Osullivan MD Unavailable Petty Almeida Primary Care Provide r Encounter Details Date Type Department Care Team (Late st Contact Info) Description 09/02/2020 Procedure Pass [facility] Echocardiography 70 [place] [address] Social History Tobacco Use Types Packs/Day Years [...] Info) Description 11/28/2024 10:20 AM EDT Appointment [facility] Skeletal Health/Osteoporosis Ctr. and Bone Density Unit [address] [place] [address] Renetta Rosenbaum, MARVIN 75 [place] [address] [email or web address] 12/09/2024 8:00 AM EDT Office Visit [facility] Cardiac Transplant 70 [place] [address] Cornelio Dunham MD 75 [facility] [place] [address] [email or web address] 12/09/2024 9:00 AM EDT Office Visit [facility] Cardiac Transplant 70 [place] [address] Unknown, Natalie, 01/27/2025 4:40 PM EST Office Visit [facility] Medical Specialties [address] [address] Jose Hidalgo MD, MPH 75 [place] [address] [email or web address] documented as of this encounter Visit Diagnoses Not on filedocumented in this encounter 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 09/02/20 - Meets time based [...] documented as of this encounter Care Teams Whale Fisherman Relationship Specialty Start Date End Date Loly Brush MD [address] [place] [address] PCP - General 07/31/14 06/05/23 Diogo Farmer NP [address] [place] [address] [email or web address] PCP - General Nurse Practitioner 06/06/23 07/28/24 Petty Almeida PA [address] [place] [address] PCP - General Physician Sports Physiotherapist 07/29/24 Andrez Manrique MD [address] [place] [address] [email or web address] Advanced Heart Failure and Transplant Cardiology 08/31/22 Andrez Kahn MD [address] [place] [address] [email or web address] Consulting Provider Cardiology 08/31/22 Luca Alfaro MD [address] [place] [address] [email or web address] Pediatric Cardiology 08/31/22 [place] [address] [place] [address] [email or web address]. [facility] Pediatric Cardiology 02/05/24 documented as of this encounter Additional Source Comments The information contained in this document represents components of the legal health record. It is not the complete legal health record.[facility]
--- OUTSIDE RECORDS SUMMARY | 2024-11-18 17:17 | XMS_ITS | Encounter Summary ---
Author Organization [facility] Address [address] [facility] [address] [place] [address] Phone Care Team Providers Care Filling Hauler Name Role Phone Loly Brush MD Primary Care Provider [phone] Andrez Manrique MD Unavailable [phone] Andrez Kahn MD Unavailable Luca Alfaro MD Unavailable [phone] America Farmer NP Primary Care Provider Andrez Osullivan MD Unavailable [phone] Petty Almeida Primary Care Provide r Encounter Details Date Type Department Care Team (Late st Contact Info) Description 09/03/2020 Procedure Pass [facility] Cardiac Stone Sandblaster [address] [place] [address] Social History Tobacco Use Types Packs/Day Years [...] Info) Description 11/28/2024 10:20 AM EDT Appointment [facility] Skeletal Health/Osteoporosis Ctr. and Bone Density Unit [address] [place] [address] Renetta Rosenbaum, LINE SERVICE SUPERVISOR 75 [place] [address] [email or web address] [place] 12/09/2024 8:00 AM EDT Office Visit [facility] Cardiac Transplant 70 [place] [address] Cornelio Dunham MD 75 [facility] [place] [address] [email or web address] 12/09/2024 9:00 AM EDT Office Visit [facility] Cardiac Transplant 70 [place] [address] Unknown, Unknown, 01/27/2025 4:40 PM EST Office [facility] Medical Specialties [address] [address] Jose Hidalgo MD, MPH 75 [place] [address] [email or web address] documented as of this encounter Visit Diagnoses [...] documented as of this encounter Care Teams Filling Hauler Relationship Specialty Start Date End Date Loly Brush MD [address] [place] [address] PCP - General 07/31/14 06/05/23 America Farmer NP [address] [place] [address] [email or web address] PCP - General Nurse Practitioner 06/06/23 07/28/24 Petty Almeida PA [address] [place] [address] [place] [address] PCP - General Physician Software Team Leader 07/29/24 Andrez Manrique MD [address] [place] [address] [place] [address] [email or web address] Advanced Heart Failure and Transplant Cardiology 08/31/22 Andrez Kahn MD [address] [place] [address] [email or web address] Consulting Provider Cardiology 08/31/22 Luca Alfaro MD [address] [place] [address] [email or web address] Pediatric Cardiology 08/31/22 Andrez Osullivan MD [address] [place] [address] [email or web address]. [facility] Pediatric Cardiology 02/05/24 documented as of this encounter Additional Source Comments The information contained in this document represents components of the legal health record. It is not the complete legal health record.[facility]
--- OUTSIDE RECORDS SUMMARY | 2024-11-18 17:18 | XMS_ITS | Clinical Summary ---
Author Organization [facility] Address [address] [place] [address] Phone Care Team Providers Care [employer] Customer Service Name Role Phone [facility] Unavailable [phone] Primary Care Provider [phone] [facility] Unavailable [phone] Andrez Kahn MD Unavailable [phone] Luca Alfaro MD Unavailable [phone] Andrez Kahn MD Unavailable [phone] Medications acetaminophen (Tylenol) 325 mg tablet Dose: 650 mg, Dose Amount: 2 tab, PO, Q4hr, PRN Pain: Mild/Moderate (Score 1-6), Entered: 07/28/18 7:57:32 EDT 9 Active apixaban (Eliquis) 2.5 mg tablet Dose: 5 mg, Dose Amount: 2 tab, PO, BID, Dispense Quantity: 240 tab, Entered: 03/28/19 7:19:51 EST, [facility] 0 Active digoxin (Lanoxin) 125 MCG tablet Dose: 125 mcg, Dose Amount: 1 tab, PO, daily, Entered: 02/25/13 18:05:18 EST, Therapy Maintenance 3 Active furosemide (Lasix) 40 mg tablet Dose: 40 mg, Dose Amount: 1 tab, PO, daily, Entered: 07/28/18 7:57:23 EDT 9 Active gabapentin 100 mg capsule Dose: 100 mg, Dose Amount: 1 cap, PO, daily, Dispense Quantity: 30 cap, Refills: 3, Entered: 03/25/21 13:05:00 EST, [id number] Active losartan (Cozaar) 25 mg tablet Dose: 25 mg, Dose Amount: 1 tab, PO, daily, Entered: 03/23/19 1:37:24 EST, 65.9 9 Active Social History Tobacco Use Types Packs/Day Years Used Date Smoking Tobacco: Never Assessed Comments Unknown Sex and Gender Information Value Date Recorded Sex Assigned at Not on file Legal Sex Female 7:53 PM EDT Gender Identity Not on file Sexual Orientation Not on file Last Filed Vital Signs Vital Sign Reading Time Taken Comments Blood Pressure 102/65 03/25/2021 12:56 PM EST Pulse 73 03/25/2021 12:56 PM EST Temperature - - Respiratory Rate - - Oxygen Saturation - - Inhaled Oxygen Concentration - - Weight 68.1 kg (150 lb 2.1 oz) 03/25/2021 12:56 PM EST Height 159.5 cm (5' 2.8 ) 03/25/2021 12:56 PM ES T Body Mass Index 26.77 03/25/2021 12:56 PM EST Plan of Treatment Health Maintenance Due Date Last Done Comments HIV Screening 1982 Varicella Vaccines (1 of 2 - 13+ 2-dose series) 10/03/1995 Hepatitis C Screening 2000 HPV Vaccines (2 - 3-dose SCDM series) 10/04/2020 09/06/2020 Hepatitis B Vaccines (3 of 3 - 19+ 3-dose series) 04/10/2023 02/13/2023, 09/05/2020 COVID-19 Vaccine (2023- season) 2023 04/30/2021, 06/17/2020, 05/20/2020 Influenza Vaccine (#1) 2024 , 03/18/2018, 03/01/1999, Additional history exists DTaP/Tdap/Td Vaccines (8 - Td or Tdap) 09/05/2030 09/05/2020, 08/04/2010, 11/25/1988, Additional history exists HIB Vaccines Completed 11/29/1985 IPV Vaccines Completed 11/25/1988, 09/1984, 01/31/1983, Additional history exists MMR Vaccines Completed 11/05/2022, 02/24/1991 Hepatitis A Vaccines Aged Out 02/13/2023, 09/05/19 21 No longer eligible based on patient's age to complete this topic Pneumococcal Vaccine: Pediatrics (0 to 5 Years) and At-Risk Patients (6 to 49 Years) Aged Out 02/15/2023, 09/04/2020, 09/29/2010 No longer eligible based on patient's age to complete this topic Meningococcal B Vaccine Aged Out No l onger eligible based on patient's age to complete this topic Meningococcal Vaccine Aged Out No veronica jaspal eligible based on patient's age to complete this topic Rotavirus Vaccines Aged Out No longer eligible based on patient's age to complete this topic Medical Devices Implanted Type Area Septic Cleaner Device Identifier Shelf Expiration Date Model / Serial / Lot Lead Ra Implanted:05/2018 by Luca Alfaro MD (Quantity not on file) Cardiac Lead Heart [employer] [id number] [facility] / [id number] / Lead Rv Implanted:05/2018 by Luca Alfaro MD (Quantity not on file) Cardiac Lead Heart [employer] [place] 0292-59 / [id number] / Icd Implanted:05/2018 by Luca Alfaro MD (Quantity not on file) ICD Heart [employer] D152 DYNAGEN / [id number] / Insurance [facility] Care Teams [employer] Customer Service Relationship Specialty Start Date End Date [facility] [address] [place] [address] PCP - Insurance PCP 03/25/18 [facility] [address] [place] [address] PCP - General 06/15/10 [facility] [address] [place] [address] PCP - Clinical PCP 07/20/10 Andrez Kahn MD 300 [place] [address] Associate Attending Cardiology 07/27/23 Luca Alfaro MD 300 [place] [address] Associate Attending Cardiovascular Surgery 12/28/22 Andrez Kahn MD 300 [place] [address] Janitorial Cleaner 08/26/23
--- OUTSIDE RECORDS SUMMARY | 2024-11-18 17:18 | XMS_ITS | Encounter Summary ---
Author Organization [facility] Address [address] [place] [address] Phone Care Team Providers Care Cementer Oil Well Name Role Phone [facility] Unavailable [facility] Primary Care Provider [phone] [place] Unavailable [phone] Andrez Kahn MD Unavailable [phone] Luca Alfaro MD Unavailable [phone] Andrez Kahn MD Unavailable [phone] Encounter Details Date Type Department Care Team (Late st Contact Info) Description 09/02/2023 Abstract Ramin Conversion Provider, MD Tammy [address] [place] [address] Transposition of the great arteries (Primary Dx) Social History Tobacco Use Types Packs/Day Years Used Date Smoking Tobacco: Never Assessed Comments Unknown Sex and Gender Information Value Date Recorded Sex Assigned at Not on file Legal Sex Female 7:53 PM EDT Gender Identity Not on file Sexual Orientation Not on file documented as of this encounter Plan of Treatment Not on file documented as of this encounter Visit Diagnoses Diagnosis Transposition of the great arteries- Primary Complete transposition of great vessels documented in this encounter Care Teams Cementer Oil Well Relationship Specialty Start Date End Date [facility] [address] [place] [address] PCP - Insurance PCP 03/25/18 [facility] [address] [place] [address] PCP - General 06/15/10 [facility] [address] [place], [place] [id number] PCP - Clinical PCP 07/20/10 Andrez Kahn MD 300 [place] [address] Associate Attending Cardiology 07/27/23 Luca Alfaro MD 300 [place] [address] Associate Attending Cardiovascular Surgery 12/28/22 Andrez Kahn MD [address] [place] [address] Electronics Maintenance Technician 08/26/23 documented as of this encounter
--- OUTSIDE RECORDS SUMMARY | 2024-11-18 17:18 | XMS_ITS | Encounter Summary ---
Author Organization [facility] Address [address] [facility] [address] [place] [address] Phone Care Team Providers Care Interviewing Clerk Name Role Phone Loly Bruhs MD Primary Care Provider [phone] Andrez Manrique MD Unavailable [phone] Andrez Kahn MD Unavailable Luca Alfaro MD Unavailable [phone] America Farmer NP Primary Care Provider Andrez Osullivan MD Unavailable [phone] Petty Almeida Primary Care Provide r Encounter Details Date Type Department Care Team (Late st Contact Info) Description 02/08/2023 Procedure Pass [facility] Echocardiography 70 [place] [address] Social History Tobacco Use Types Packs/Day Years [...] Date of Assessment Author No Risk Indicated 02/08/2023 10:00 PM Nevaeh Whitman RN * [place] Suicide Severity Rating Scale (Screener/Recent Self-Report) Question Answer Date of Assessment Author 1. Wish to be (Past 1 Month) No 02/08/2023 10:00 PM David Prince RN 2. Non-Specific Active Suicidal Thoughts (Past 1 Month) No 02/08/2023 10:00 PM David Prince RN 6. Suicidal Behavior (Lifetime) No 02/08/2023 10:00 PM David Prince RN documented as of this encounter Plan of Treatment Upcoming Encounters Date Type Department Care Team (Late st Contact Info) Description 11/28/2024 10:20 AM EDT Appointment [facility] Skeletal Health/Osteoporosis Ctr. and Bone Density Unit [address] [place] [address] Renetta Rosenbaum, GRADE RECORDER 75 [place] [address] [email or web address] 12/09/2024 8:00 AM EDT Office Visit [facility] Cardiac Transplant 70 [place] [address] Cornelio Dunham MD 75 [facility] [place] [address] [email or web address] [email or web address] 12/09/2024 9:00 AM EDT Office Visit [facility] Cardiac Transplant 70 [place] [address] Unknown, MD Natalie 01/27/2025 4:40 PM EST Office Visit [facility] 45 [facility] ASB2-2 [place] [address] Jose Hidalgo MD, MPH 75 [facility], [place] [address] [email or web address] documented as of this encounter Visit Diagnoses Not on filedocumented in this encounter Additional Health Concerns Infection Onset Date Last Indicated Resolved Time CoV-Risk Comment:Per note documentation 02/08/2023 02/08/2023 2:48 [...] documented as of this encounter Care Teams Interviewing Clerk Relationship Specialty Start Date End Date Loly Brush MD 230 [place] [address] PCP - General 07/31/14 06/05/23 America Farmer NP 575 [place] [address] [email or web address] PCP - General Nurse Practitioner 06/06/23 07/28/24 Petty Almeida PA [address] [place] [address] PCP - General Physician Confectionery Laboratory Manager 07/29/24 Andrez Manrique MD [address] [place] [address] [place] [address] [email or web address] Advanced Heart Failure and Transplant Cardiology 08/31/22 Andrez Kahn MD [address] [place] [address] [email or web address] Consulting Provider Cardiology 08/31/22 Luca Alfaro MD [address] [place] [address] [email or web address] Pediatric Cardiology 08/31/22 Andrez Osullivan MD [address] [place] [address] [email or web address] Pediatric Cardiology 02/05/24 documented as of this encounter Additional Source Comments The information contained in this document represents components of the legal health record. It is not the complete legal health record.[facility]
--- OUTSIDE RECORDS SUMMARY | 2024-11-18 17:18 | XMS_ITS | Encounter Summary ---
Author Organization [facility] Address [address] [facility] [address] [place] [address] Phone Care Team Providers Care Product Communications Manager Name Role Phone Andrez Manrique MD Unavailable Andrez Kahn MD Unavailable Luca Alfaro MD Unavailable [phone] America Farmer PRECISION INSTRUMENT AND TOOL MAKER Primary Care Provider Andrez Osullivan MD Unavailable [phone] Petty Almeida PA Primary Care Provide r Encounter Details Date Type Department Care Team (Late st Contact Info) Description 12/20/2023 Procedure Pass [facility] Echocardiography 70 [place] [address] Social History Tobacco Use Types Packs/Day Years [...] Info) Description 11/28/2024 10:20 AM EDT Appointment [facility] Skeletal Health/Osteoporosis Ctr. and Bone Density Unit 221 [place] [address] Renetta Rosenbaum CNP 75 [place] [address] [email or web address] 12/09/2024 8:00 AM EDT Office Visit [facility] Cardiac Transplant 70 [place] [address] Cornelio Dunham MD 75 [facility] [place] [address] [email or web address] 12/09/2024 9:00 AM EDT Office Visit [facility] Cardiac Transplant 70 [place] [address] Natalie Estrada MD 01/27/2025 4:40 PM EST Office Visit [facility] Specialties 45 [facility] ASB2-2 [place] [address] Jose Hidalgo MD, MPH 75 [facility], [facility] [place] [address] [email or web address] documented as of this encounter [...] documented as of this encounter Care Teams Product Communications Manager Relationship Specialty Start Date End Date America Farmer NP [address] [place] [address] [email or web address] PCP - General Nurse Practitioner 06/06/23 07/28/24 Petty Almeida PA [address] [place] [address] [address] PCP - General Physician Assistant Curator 07/29/24 Andrez Manrique MD [address] [place] [address] [place] [address] [email or web address] Advanced Heart Failure and Transplant Cardiology 08/31/22 Andrez Kahn MD [address] [place] [address] [email or web address] Consulting Provider Cardiology 08/31/22 Luca Alfaro MD [address] [place] [address] [email or web address] Pediatric Cardiology 08/31/22 Andrez Osullivan MD [address] [place] [address] [email or web address] Pediatric Cardiology 02/05/24 documented as of this encounter Additional Source Comments The information contained in this document represents components of the legal health record. It is not the complete legal health record.[facility]
--- OUTSIDE RECORDS SUMMARY | 2024-11-18 17:18 | XMS_ITS | Encounter Summary ---
Author Organization [facility] Address [address] [facility] [address] [place] [address] Phone Care Team Providers Care Guitar Technician Name Role Phone Andrez Manrique MD Unavailable [phone] Andrez Kahn MD Unavailable [phone] Luca Alfaro MD Unavailable [phone] America Farmer ELECTRO MECHANICAL ENGINEER Primary Care Provider Andrez Osullivan MD Unavailable [phone] Petty Almeida PA Primary Care Provide r Encounter Details Date Type Department Care Team (Late st Contact Info) Description 12/25/2023 Procedure Pass [facility] Cardiac Tie Cutter [address] [place] [address] Social History Tobacco Use Types Packs/Day Years [...] Info) Description 11/28/2024 10:20 AM EDT Appointment [facility] Skeletal Health/Osteoporosis Ctr. and Bone Density Unit [address] [place] [address] Renetta Rosenbaum CNP 75 [place] [address] [email or web address] 12/09/2024 8:00 AM EDT Office Visit [facility] Cardiac Transplant 70 [place] [address] Cornelio Dunham MD 75 [place] [address] [email or web address] 12/09/2024 9:00 AM EDT Office Visit [facility] Cardiac Transplant 70 [place] [address] Natalie, MD Natalie 01/27/2025 4:40 PM EST Office Visit [facility] [address] [place] ASB2-2 [place] [address] Jose Hidalgo MD, MPH [address] [facility], [place] [address] [email or web address] documented as of this encounter Visit Diagnoses [...] documented as of this encounter Care Teams Guitar Technician Relationship Specialty Start Date End Date America Farmer NP [address] [place] [address] [email or web address] PCP - General Nurse Practitioner 06/06/23 07/28/24 Petty Almeida PA [address] [place] [address] PCP - General Physician Cooky Packer 07/29/24 Andrez Manrique MD [address] [place] [address] [email or web address] du Advanced Heart Failure and Transplant Cardiology 08/31/22 Andrez Kahn MD [address] [place] [address] [email or web address] Consulting Provider Cardiology 08/31/22 Luca Alfaro MD [address] [place] [address] [facility] Cardiology 08/31/22 Andrez Osullivan MD [address] [place] [address] [email or web address]. [facility] Pediatric Cardiology 02/05/24 documented as of this encounter Additional Source Comments The information contained in this document represents components of the legal health record. It is not the complete legal health record.[facility]
--- OUTSIDE RECORDS SUMMARY | 2024-11-18 17:19 | XMS_ITS | Encounter Summary ---
Author Organization [facility] Address 399 [facility] [address] [place] [address] Phone Care Team Providers Care Dynamiter Name Role Phone Andrez Manrique MD Unavailable Andrez Kahn MD Unavailable Luca Alfaro MD Unavailable [phone] America Farmer ENVIRONMENTAL AID Primary Care Provider Andrez Osullivan MD Unavailable [phone] Petty Almeida PA Primary Care Provide r Encounter Details Date Type Department Care Team (Late st Contact Info) Description 11/04/2023 Procedure Pass [facility] Echocardiography [address] [place] [address] Social History Tobacco Use Types Packs/Day Years [...] Info) Description 11/28/2024 10:20 AM EDT Appointment [facility] Skeletal Health/Osteoporosis Ctr. and Bone Density Unit [address] [place] [address] Renetta Rosenbaum, RETORT PRE COOKER [address] [place] [address] [email or web address] 12/09/2024 8:00 AM EDT Office Visit [facility] Cardiac Transplant [address] [place] [address] Cornelio Dunham MD [address] [place] [address] [place] [address] [email or web address] 12/09/2024 9:00 AM EDT Office Visit [facility] Cardiac Transplant 70 [place] [address] Natalie, Natalie, 01/27/2025 4:40 PM EST Office Visit [facility] Medical Specialties 45 [facility]2 [place] [address] Jose Hidalgo MD, MPH 75 [facility] [place] [address] LUCERO@[email or web address] documented as of this encounter Visit Diagnoses Not on filedocumented in this encounter Additional Health Concerns Infection Onset Date Last Indicated Resolved Time CDiff-Risk 11/13/2023 11/13/2023 11/14/2023 9:39 AM EDT [...] documented as of this encounter Care Teams Dynamiter Relationship Specialty Start Date End Date America Farmer NP [address] [place] [address] [email or web address] PCP - General Nurse Practitioner 06/06/23 07/28/24 Petty Almeida PA [address] [place] [place] [address] [place] [address] PCP - General Physician Node Js Developer 07/29/24 Andrez Manrique MD [address] [place] [address] [email or web address]. du Advanced Heart Failure and Transplant Cardiology 08/31/22 Andrez Kahn MD [address] [place] [address] [email or web address] Consulting Provider Cardiology 08/31/22 Luca Alfaro MD [address] [place] [address] [email or web address] Pediatric Cardiology 08/31/22 Andrez Osullivan MD [address] [place] [address] GINNY@[email or web address] Pediatric Cardiology 02/05/24 documented as of this encounter Additional Source Comments The information contained in this document represents components of the legal health record. It is not the complete legal health record.[facility]
--- OUTSIDE RECORDS SUMMARY | 2024-11-18 17:19 | XMS_ITS | Encounter Summary ---
Author Organization [facility] Address 399 [facility] [address] [place] [address] Phone Care Team Providers Care Lye Machine Operator Name Role Phone Andrez Manrique MD Unavailable Andrez Kahn MD Unavailable [phone] Luca Alfaro MD Unavailable [phone] America Farmer PRODUCTION LEADER Primary Care Provider Andrez Osullivan MD Unavailable [phone] Petty Almeida PA Primary Care Provide r Encounter Details Date Type Department Care Team (Late st Contact Info) Description 03/13/2024 Procedure Pass [facility] Echocardiography 70 [place] [address] Social History Tobacco Use Types Packs/Day Years [...] high school, GED, job training, learning the Marshallese language, technical skills, or developing parenting skills)? No 03/09/2024 Are you concerned about learning? Not on file 03/09/2024 No 03/09/2024 Yes 03/09/2024 Food Answer Date Recorded Within the past 6 months we worried whether our food would run out before we got money to buy more. Never True 03/09/2024 Within the past 6 months the food we bought just didn't last and we didn't have enough money to get more. Never True Residential Stability Answer Date Recor ded What is your housing situation today? I have adama sing 03/09/2024 How many times have you move d in the past 12 months? Zero (I did not move) 03/09/2024 Paying for Meds Answer Date Recorded Do you have trouble paying for medicines? No 03/09/2024 Paying Utility Bills Answer Date Record ed Do you have trouble paying your heating or elect ricity bill? No 03/09/2024 Transportation Answer Date Recorded Has the lack of transportati on kept you from medical appointments or from getting medications? No 03/09/2024 Unemployment Answer Date Recorded Are you currently unemployed or working on a part-time or temporary basis, and looking for work? No 03/09/2024 Digital Access Answer Date Recorded Yes 03/09/2024 Yes 03/09/2024 Do you have reliable internet access at home? No 03/09/2024 Do you have a device (e.g., phone, tablet, computer) with a working camera? Yes 03/09/2024 Intimate Partner Violence Answer Date R ecorded Are you denied basic needs s uch as food, clothing, or medical care? No 03/12/2024 In the past 12 months have y ou been in a relationship with a person who hurts, threatens, or tries to control you? No 03/12/2024 Are you denied basic needs s uch as food, clothing, or medical care? No 03/12/2024 In the past 12 months have y ou been in a relationship with a person who hurts, threatens, or tries to control you? No 03/12/2024 Comments No Sex and Gender Information Value Date Recorded Sex Assigned at Female 01/13/2022 9:57 AM EDT Legal Sex Female 7:53 PM EST Gender Identity Female 01/13/2022 9:57 AM EDT Sexual Orientation Straight 01/13/2022 9: 57 AM EDT documented as of this encounter Plan of Treatment Upcoming Encounters Date Type Department Care Team (Late st Contact Info) Description 11/28/2024 10:20 AM EDT Appointment [facility] Skeletal Health/Osteoporosis Ctr. and Bone Density Unit 221 [place] [address] Renetta Rosenbaum, GRAPE PICKER 75 [place] [address] [email or web address] 12/09/2024 8:00 AM EDT Office Visit [facility] Cardiac Transplant 70 [place] [address] Cornelio Dunham MD 75 [facility] [place] [address] [email or web address] 12/09/2024 9:00 AM EDT Office Visit [facility] Cardiac Transplant 70 [place] [address] Unknown, Natalie, 01/27/2025 4:40 PM EST Office Visit [facility] Medical Specialties [address] [address] [place] [address] Jose Hidalgo MD, MPH 75 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 CDiff-Risk 03/13/2024 03/13/2024 03/14/2024 1:26 PM EST CDiff-Risk 03/20/2024 03/20/2024 03/21/2024 9:24 AM EST CDiff-Risk 03/27/2024 03/27/2024 03/27/2024 1:11 PM EST Assessment Noted Time PHQ-2 Depression Total Score: 0 02/24/20 22 4:08 PM EST documented as of this encounter Care Teams Lye Machine Operator Relationship Specialty Start Date End Date America Farmer NP [address] [place] [address] [email or web address] PCP - General Nurse Practitioner 06/06/23 07/28/24 Petty Almeida PA [address] [place] [address] PCP - General Physician Case Management Rn 07/29/24 Andrez Manrique MD [address] [place] [address] [email or web address] du Advanced Heart Failure and Transplant Cardiology 08/31/22 Andrez Kahn MD [address] [place] [address] [email or web address] Consulting Provider Cardiology 08/31/22 Luca Alfaro MD [address] [place] [address] [facility] Pediatric Cardiology 08/31/22 [place] [address] [place] [address] GINNY@[email or web address] Pediatric Cardiology 02/05/24 documented as of this encounter Additional Source Comments The information contained in this document represents components of the legal health record. It is not the complete legal health record.[facility]
--- OUTSIDE RECORDS SUMMARY | 2024-11-18 17:19 | XMS_ITS | Encounter Summary ---
Author Organization [facility] Address 399 [facility] [address] [place] [address] Phone Care Team Providers Care Health Administration Teacher Name Role Phone Andrez Manrique MD Unavailable [phone] Andrez Kahn MD Unavailable [phone] Luca Alfaro MD Unavailable [phone] America Farmer FAMILY DENTIST Primary Care Provider Andrez Osullivan MD Unavailable [phone] Petty Almeida PA Primary Care Provide r Encounter Details Date Type Department Care Team (Late st Contact Info) Description 03/14/2024 Procedure Pass [facility] Cardiac Fountain Pen Nibs Inspector [address] [place] [address] Social History Tobacco Use Types Packs/Day Years [...] high school, GED, job training, learning the Eritrean language, technical skills, or developing parenting skills)? [...] Info) Description 11/28/2024 10:20 AM EDT Appointment [facility] Skeletal Health/Osteoporosis Ctr. and Bone Density Unit [address] [place] [address] Renetta Rosenbaum, MARVIN [address] [place] [address] [email or web address] BRIG[facility]TE 12/09/2024 8:00 AM EDT Office Visit [facility] Cardiac Transplant [address] [place] [address] Cornelio Dunham MD [address] [place] [address] [place] [address] [email or web address] 12/09/2024 9:00 AM EDT Office Visit [facility] Cardiac Transplant [address] [place] [address] Unknown, Natalie, 01/27/2025 4:40 PM EST Office Visit [facility] Medical Specialties [address] [place] [address] Jose Hidalgo MD, MPH 75 [place] [address] [email or web address] documented as of this encounter [...] documented as of this encounter Care Teams Health Administration Teacher Relationship Specialty Start Date End Date America Farmer NP [address] [place] [address] [email or web address] PCP - General Nurse Practitioner 06/06/23 07/28/24 Petty Almeida PA [address] [place] [address] PCP - General Physician Clinical Research Director 07/29/24 Andrez Manrique MD [address] [place] [address] [email or web address]. du Advanced Heart Failure and Transplant Cardiology 08/31/22 Andrez Kahn MD [address] [place] [address] [email or web address] Consulting Provider Cardiology 08/31/22 Luca Alfaro MD [address] [place] [address] [facility] Pediatric Cardiology 08/31/22 Andrez Osullivan MD [address] [place] [address] GINNY@[email or web address]. [facility] Pediatric Cardiology 02/05/24 documented as of this encounter Additional Source Comments The information contained in this document represents components of the legal health record. It is not the complete legal health record.[facility]
--- OUTSIDE RECORDS SUMMARY | 2024-11-18 17:19 | XMS_ITS | Encounter Summary ---
Author Organization [facility] Address [address] [facility] [address] [place] [address] Phone Care Team Providers Care Computer Compositor Name Role Phone Andrez Manrique MD Unavailable [phone] Andrze Kahn MD Unavailable [phone] Luca Alfaro MD Unavailable [phone] America Farmer BUILDING CONSULTANT Primary Care Provider Andrez Osullivan MD Unavailable [phone] Petty Almeida Primary Care Provide r Encounter Details Date Type Department Care Team (Late st Contact Info) Description 03/16/2024 Procedure Pass [facility] Rad[facility] 70 [place] [address] Social History Tobacco Use Types Packs/Day Years [...] high school, GED, job training, learning the Malian language, technical skills, or developing parenting skills)? [...] Info) Description 11/28/2024 10:20 AM EDT Appointment [facility] Skeletal Health/Osteoporosis Ctr. and Bone Density Unit [address] [place] [address] Renetta Rosenbaum, MARVIN 75 [place] [address] [email or web address] 12/09/2024 8:00 AM EDT Office Visit [facility] Cardiac Transplant 70 [place] [address] Cornelio Dunham MD 75 [facility] [place] [address] [email or web address] 12/09/2024 9:00 AM EDT Office Visit [facility] Cardiac Transplant 70 [place] [address] Unknown, Natalie, 01/27/2025 4:40 PM EST Office Visit [facility] Medical Specialties [address] [place] [address] Jose Hidalgo MD, MPH 75 [place] [address] [email or web address] documented as of this encounter Visit Diagnoses Not on file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 CDiff-Risk 03/20/2024 03/20/2024 03/21/2024 9:24 AM EST CDiff-Risk 03/27/2024 03/27/2024 03/27/2024 1:11 PM EST Assessment Noted Time PHQ-2 Depression Total Score: 0 02/24/20 22 4:08 PM EST documented as of this encounter Care Teams Computer Compositor Relationship Specialty Start Date End Date America Farmer NP [address] [place] [address] [email or web address] PCP - General Nurse Practitioner 06/06/23 07/28/24 Petty Almeida PA [address] [place] [address] PCP - General Physician Tandem Operator 07/29/24 Andrez Manrique MD [address] [place] [address] [email or web address] du Advanced Heart Failure and Transplant Cardiology 08/31/22 Andrez Kahn MD [address] [place] [address] [email or web address] Consulting Provider Cardiology 08/31/22 Luca Alfaro MD [address] [place] [address] [email or web address] Pediatric Cardiology 08/31/22 Andrez Osullivan MD [address] [place] [address] GINNY@[email or web address] Pediatric Cardiology 02/05/24 documented as of this encounter Additional Source Comments The information contained in this document represents components of the legal health record. It is not the complete legal health record.[facility]
--- OUTSIDE RECORDS SUMMARY | 2024-11-18 17:20 | XMS_ITS | Encounter Summary ---
Author Organization [facility] Address [address] [place] [address] Phone Care Team Providers Care Multi Mission Helicopter Aircrewman Name Role Phone Andrez Manrique MD Unavailable [phone] Andrez Kahn MD Unavailable [phone] Luca Alfaro MD Unavailable [phone] America Farmer FOOD CHECKERS AND CASHIERS SUPERVISOR Primary Care Provider Andrez Osullivan MD Unavailable [phone] Petty Almeida PA Primary Care Provide r Encounter Details Date Type Department Care Team (Late st Contact Info) Description 03/11/2024 Procedure Pass [facility] [address] [place] [address] Social History Tobacco Use Types Packs/Day Years [...] high school, GED, job training, learning the Hong Konger language, technical skills, or developing parenting skills)? [...] Date of Assessment Author No Risk Indicated 03/12/2024 11:23 PM Hortensia Contreras RN * [place] Suicide Severity Rating Scale (Screener/Recent Self-Report) Question Answer Date of Assessment Author 1. Wish to be (Past 1 Month) No 03/12/2024 11:23 PM Valerio Saavedra RN 2. Non-Specific Active Suicidal Thoughts (Past 1 Month) No 03/12/2024 11:23 PM Valerio Saavedra RN 6. Suicidal Behavior (Lifetime) No 03/12/2024 11:23 PM Valerio Saavedra RN documented as of this encounter Plan of Treatment Upcoming Encounters Date Type Department Care Team (Late st Contact Info) Description 11/28/2024 10:[address] [facility] Skeletal Health/Osteoporosis Ctr. and Bone Density Unit [address] [place] [address] Renetta Rosenbaum, MARVIN [address] [place] [address] [email or web address] [email or web address] 12/09/2024 8:00 AM EDT Office Visit [facility] Cardiac Transplant [address] [place] [address] Cornelio Dunham MD 75 [facility] [place] [address] [email or web address] 12/09/2024 9:00 AM EDT Office Visit [facility] Cardiac Transplant [address] [place] [address] Natalie Estrada MD 01/27/2025 4:40 PM EST Office Visit [facility] Specialties 45 [facility]2 [place] [address] Jose Hidalgo MD, MPH 75 [facility] [place] [address] [email or web address] documented as of this encounter Visit [...] documented as of this encounter Care Teams Multi Mission Helicopter Aircrewman Relationship Specialty Start Date End Date America Farmer NP 5 [place] [address] [email or web address] PCP - General Nurse Practitioner 06/06/23 07/28/24 Petty Almeida PA [address] [place] [address] PCP - General Physician Die Try Out Worker Stamping 07/29/24 Andrez Manrique MD [address] [place] [address] [place] [address] [email or web address]. du Advanced Heart Failure and Transplant Cardiology 08/31/22 Andrez Kahn MD [address] [place] [address] Consulting Provider Cardiology 08/31/22 Luca Alfaro MD [address] [place] [address] [facility] Pediatric Cardiology 08/31/22 Andrez Osullivan MD [address] [place] [address] GINNY@[email or web address] Pediatric Cardiology 02/05/24 documented as of this encounter Additional Source Comments The information contained in this document represents components of the legal health record. It is not the complete legal health record.[facility]
--- OUTSIDE RECORDS SUMMARY | 2024-11-18 17:20 | XMS_ITS | Encounter Summary ---
Author Organization [facility] Address [address] [facility] [address] [place] [address] Phone Care Team Providers Care Algebra Tutor Name Role Phone Andrez Manrique MD Unavailable [phone] Andrez Kahn MD Unavailable [phone] Luca Alfaro MD Unavailable America Farmer RETAIL PLANNING MANAGER Primary Care Provider Andrez Osullivan MD Unavailable [phone] Petty Almeida PA Primary Care Provide r Encounter Details Date Type Department Care Team (Late st Contact Info) Description 11/06/2023 Procedure Pass [facility] 75 [place] [address] Social History Tobacco Use Types Packs/Day Years [...] Info) Description 11/28/2024 10:20 AM EDT Appointment [facility] Skeletal Health/Osteoporosis Ctr. and Bone Density Unit [address] [place] [address] Renetta Rosenbaum, MARVIN 75 [place] [address] [email or web address] 12/09/2024 8:00 AM EDT Office Visit [facility] Cardiac Transplant 70 [place] [address] Cornelio Dunham MD [address] [facility] [place] [address] [email or web address] 12/09/2024 9:00 AM EDT Office Visit [facility] Cardiac Transplant [address] [place] [address] Natalie, Natalie, 01/27/2025 4:40 PM EST Office Visit [facility] Specialties 45 [facility]2 [place] [address] Jose Hidalgo MD, MPH 75 [facility] [place] [address] [email or web address] documented as of this encounter Visit Diagnoses [...] documented as of this encounter Care Teams Algebra Tutor Relationship Specialty Start Date End Date America Farmer NP [address] [place] [address] [email or web address] PCP - General Nurse Practitioner 06/06/23 07/28/24 Petty Almeida PA [address] [place] [address] [address] PCP - General Physician Toy Parts Former Supervisor 07/29/24 Andrez Manrique MD [address] [place] [address] [email or web address]. du Advanced Heart Failure and Transplant Cardiology 08/31/22 Andrez Kahn MD [address] [place] [address] [email or web address] Consulting Provider Cardiology 08/31/22 Luca Alfaro MD [address] [place] [address] [facility] Pediatric Cardiology 08/31/22 Andrez Osullivan MD [address] [place] [address] GINNY@[email or web address] Pediatric Cardiology 02/05/24 documented as of this encounter Additional Source Comments The information contained in this document represents components of the legal health record. It is not the complete legal health record.[facility]
--- OUTSIDE RECORDS SUMMARY | 2024-11-18 17:20 | XMS_ITS | Encounter Summary ---
Author Organization [facility] Address [address] [place] [address] Phone Care Team Providers Care Hoeing Row Boss Name Role Phone Andrez Manrique MD Unavailable [phone] Andrez Kahn MD Unavailable Luca Alfaro MD Unavailable [phone] America Farmer DISPENSING AND MEASURING OPTICIAN Primary Care Provider Andrez Osullivan MD Unavailable Petty Almeida PA Primary Care Provide r Encounter Details Date Type Department Care Team (Late st Contact Info) Description 03/19/2024 Procedure Pass [facility] [address] [place] [address] Social History Tobacco Use Types Packs/Day Years [...] high school, GED, job training, learning the Monegasque language, technical skills, or developing parenting skills)? [...] Health/Osteoporosis Ctr. and Bone Density Unit 221 [place] [address] Renetta Rosenbaum, DEMOLITION CRANE OPERATOR 75 [place] [address] [email or web address] 12/09/2024 8:00 AM EDT Office Visit [facility] Cardiac Transplant [address] [place] [address] Cornelio Dunham MD 75 [facility] [place] [address] [email or web address] 12/09/2024 9:00 AM EDT Office Visit [facility] Cardiac Transplant [address] [place] [address] Unknown, Natalie, 01/27/2025 4:40 PM EST Office Visit [facility] Medical Specialties [address] [address] [place] [address] Jose Hidalgo MD, MPH 75 [facility] [place] [address] [email or web address]@[email or web address] documented as of this encounter Visit [...] documented as of this encounter Care Teams Hoeing Row Boss Relationship Specialty Start Date End Date America Farmer NP [address] [place] [address] [email or web address] PCP - General Nurse Practitioner 06/06/23 07/28/24 Petty Almeida PA [address] [place] [address] PCP - General Physician Compliance Analyst 07/29/24 Andrez Manrique MD [address] [place] [address] [email or web address]. du Advanced Heart Failure and Transplant Cardiology 08/31/22 Andrez Kahn MD [address] [place] [address] [email or web address] Consulting Provider Cardiology 08/31/22 Luca Alfaro MD [address] [place] [address] [email or web address] Pediatric Cardiology 08/31/22 Andrez Osullivan MD [address] [place] [address] GINNY@[email or web address] Pediatric Cardiology 02/05/24 documented as of this encounter Additional Source Comments The information contained in this document represents components of the legal health record. It is not the complete legal health record.[facility]
--- OUTSIDE RECORDS SUMMARY | 2024-11-18 17:20 | XMS_ITS | Encounter Summary ---
Author Organization [facility] Address [address] [facility] [address] [place] [address] Phone Care Team Providers Care Apartment Maintenance Technician Name Role Phone Andrez Manrique MD Unavailable [phone] Andrez Kahn MD Unavailable Luca Alfaro MD Unavailable [phone] America Farmer MONEY ROOM TELLER Primary Care Provider Andrez Osullivan MD Unavailable [phone] Petty Almeida PA Primary Care Provide r Encounter Details Date Type Department Care Team (Late st Contact Info) Description 11/06/2023 Procedure Pass [facility] Radiology 75 [place] [address] Social History Tobacco Use Types Packs/Day Years [...] Description 11/28/2024 10:20 AM EDT Appointment [facility] Skeletal Health/Osteoporosis Ctr. and Bone Density Unit 221 [place] [address] Renetta Rosenbaum, MARVIN 75 [place] [address] [email or web address].[email or web address]. [place] 12/09/2024 8:00 AM EDT Office Visit [facility] Cardiac Transplant 70 [place] [address] Cornelio Dunham MD 75 [facility] [place] [address] [email or web address] 12/09/2024 9:00 AM EDT Office Visit [facility] Cardiac Transplant 70 [place] [address] Natalie, Natalie, 01/27/2025 4:40 PM EST Office Visit [facility] Medical Specialties 45 [facility]2 [place] [address] Jose Hidalgo MD, MPH 75 [facility] [place] [address] [email or web address]@[email or web address] documented as of this encounter Visit [...] documented as of this encounter Care Teams Apartment Maintenance Technician Relationship Specialty Start Date End Date America Farmer NP 575 [place] [address] [email or web address] [employer] PCP - General Nurse Practitioner 06/06/23 07/28/24 Petty Almeida PA [address] [place] [address] [address] PCP - General Physician Multimedia Teacher 07/29/24 Andrez Manrique MD [address] [place] [address] [email or web address]. du Advanced Heart Failure and Transplant Cardiology 08/31/22 Andrez Kahn MD [address] [place] [address] [email or web address] Consulting Provider Cardiology 08/31/22 Luca Alfaro MD [address] [place] [address] [email or web address] Pediatric Cardiology 08/31/22 Andrez Osullivan MD [address] [place] [address] GINNY@[email or web address] Pediatric Cardiology 02/05/24 documented as of this encounter Additional Source Comments The information contained in this document represents components of the legal health record. It is not the complete legal health record.[facility]
--- OUTSIDE RECORDS SUMMARY | 2024-11-18 17:21 | XMS_ITS | Encounter Summary ---
Author Organization [facility] Address [address] [facility] [address] [place] [address] Phone Care Team Providers Care Marzipan Maker Name Role Phone Andrez Manrique MD Unavailable Andrez Kahn MD Unavailable Luca Alfaro MD Unavailable [phone] America Farmer COAL MILL OPERATOR Primary Care Provider Andrez Osullivan MD Unavailable [phone] Petty Almeida PA Primary Care Provide r Encounter Details Date Type Department Care Team (Late st Contact Info) Description 11/06/2023 Procedure Pass [facility]iology 70 [place] [address] Social History Tobacco Use Types Packs/Day Years [...] Description 11/28/2024 10:[address] [facility] Skeletal Health/Osteoporosis Ctr. and Bone Density Unit 221 [place] [address] Renetta Rosenbaum, RUNNING RIGGER 75 [place] [address] [email or web address] 12/09/2024 8:00 AM EDT Office Visit [facility] Cardiac Transplant 70 [place] [address] Cornelio Dunham MD 75 [facility] [place] [address] [email or web address] 12/09/2024 9:00 AM EDT Office Visit [facility] Cardiac Transplant 70 [place] [address] Natalie, Natalie, 01/27/2025 4:40 PM EST Office Visit [facility] Medical Specialties [address] [facility]2 [place] [address] Jose Hidalgo MD, MPH 75 [place] [address] [email or web address]@[facility] documented as of this [...] documented as of this encounter Care Teams Marzipan Maker Relationship Specialty Start Date End Date America Farmer NP 575 [place] [address] [email or web address] PCP - General Nurse Practitioner 06/06/23 07/28/24 Petty Almeida PA [address] [place] [address] [address] PCP - General Physician Associate Software Developer 07/29/24 Andrez Manrique MD [address] [place] [address] [place] [address] [email or web address]. du Advanced Heart Failure and Transplant Cardiology 08/31/22 Andrez Kahn MD [address] [place] [address] [email or web address] Consulting Provider Cardiology 08/31/22 Luca Alfaro MD [address] [place] [address] [email or web address] Pediatric Cardiology 08/31/22 Andrez Osullivan MD [address] [place] [address] GINNY@[facility].[email or web address]. [facility] Pediatric Cardiology 02/05/24 documented as of this encounter Additional Source Comments The information contained in this document represents components of the legal health record. It is not the complete legal health record.[facility]
--- OUTSIDE RECORDS SUMMARY | 2024-11-18 17:21 | XMS_ITS | Encounter Summary ---
Author Organization [facility] Address [address] [facility] [address] [place] [address] Phone Care Team Providers Care Cook Night Name Role Phone Andrez Manrique MD Unavailable Andrez Kahn MD Unavailable [phone] Luca Alfaro MD Unavailable [phone] America Farmer GATE KEEPER Primary Care Provider Andrez Osullivan MD Unavailable [phone] Petty Almeida PA Primary Care Provide r Encounter Details Date Type Department Care Team (Late st Contact Info) Description 03/20/2024 Procedure Pass [facility] Echocardiography 70 [place] [address] Social History Tobacco Use Types Packs/Day Years [...] high school, GED, job training, learning the [place] Islander language, technical skills, or developing parenting [...] Info) Description 11/28/2024 10:20 AM EDT Appointment [facility] Skeletal Health/Osteoporosis Ctr. and Bone Density Unit 221 [place] [address] Renetta Rosenbaum, POWERHOUSE MECHANIC HELPER 75 [place] [address] [email or web address] 12/09/2024 8:00 AM EDT Office Visit [facility] Cardiac Transplant 70 [place] [address] Cornelio Dunham MD 75 [facility] [place] [address] [email or web address] 12/09/2024 9:00 AM EDT Office Visit [facility] Cardiac Transplant 70 [place] [address] Unknown, Natalie, 01/27/2025 4:40 PM EST Office Visit [facility] Medical Specialties [address] [place] [address] Jose Hidalgo MD, MPH 75 [place] [address] [email or web address]@[email or web address] documented as of this encounter Visit Diagnoses [...] documented as of this encounter Care Teams Cook Night Relationship Specialty Start Date End Date America Farmer NP 575 [place] [address] [email or web address] PCP - General Nurse Practitioner 06/06/23 07/28/24 Petty Almeida PA [address] [place] [address] [address] PCP - General Physician Infection Control Manager 07/29/24 Andrez Manrique MD [address] [place] [address] [place] [address] [email or web address]. du Advanced Heart Failure and Transplant Cardiology 08/31/22 Andrez Kahn MD [address] [place] [address] [email or web address] Consulting Provider Cardiology 08/31/22 Luca Alfaro MD [address] [place] [address] [email or web address] Pediatric Cardiology 08/31/22 Andrez Osullivan MD [address] [place] [address] GINNY@[facility].[email or web address]. [facility] Pediatric Cardiology 02/05/24 documented as of this encounter Additional Source Comments The information contained in this document represents components of the legal health record. It is not the complete legal health record.[facility]
--- OUTSIDE RECORDS SUMMARY | 2024-11-18 17:21 | XMS_ITS | Encounter Summary ---
Author Organization [facility] Address [address] [facility] [address] [place] [address] Phone Care Team Providers Care Oven Worker Name Role Phone Andrez Manrique MD Unavailable [phone] Andrez Kahn MD Unavailable Luca Alfaro MD Unavailable America Farmer CERTIFIED ALCOHOL COUNSELOR Primary Care Provider Andrez Osullivan MD Unavailable [phone] Petty Almeida PA Primary Care Provide r Encounter Details Date Type Department Care Team (Late st Contact Info) Description 11/06/2023 Procedure Pass [facility] Echocardiography 70 [place] [address] Social History Tobacco Use Types Packs/Day Years [...] Description 11/28/2024 10:20 AM EDT Appointment [facility] Skeletal Health/Osteoporosis Ctr. and Bone Density Unit 221 [place] [address] Renetta Rosenbaum, DUSTING AND BRUSHING MACHINE OPERATOR 75 [place] [address] SPIKE@[email or web address]. [place] 12/09/2024 8:00 AM EDT Office Visit [facility] Cardiac Transplant 70 [place] [address] Cornelio Dunham MD [address] [place] [address] [place] [address] long@[facility] 12/09/2024 9:00 AM EDT Office Visit [facility] Cardiac Transplant 70 [place] [address] Natalie, Natalie, 01/27/2025 4:40 PM EST Office Visit [facility] 45 [facility]2 [place] [address] Jose Hidalgo MD, MPH 75 [facility] [place] [address] LUCERO@[facility] documented as of this encounter Visit [...] documented as of this encounter Care Teams Oven Worker Relationship Specialty Start Date End Date America Farmer NP 575 [place] [address] [email or web address] [employer] PCP - General Nurse Practitioner 06/06/23 07/28/24 Petty Almeida PA [address] [place] [address] [place] [address] PCP - General Physician Inspector Eyeglass 07/29/24 Andrez Manrique MD [address] [place] [address] [email or web address]. du Advanced Heart Failure and Transplant Cardiology 08/31/22 Andrez Kahn MD [address] [place] [address] [facility] Consulting Provider Cardiology 08/31/22 Luca Alfaro MD [address] [place] [address] [facility] Pediatric Cardiology 08/31/22 Andrez Osullivan MD [address] [place] [address] GINNY@[facility].[place]. [facility] Pediatric Cardiology 02/05/24 documented as of this encounter Additional Source Comments The information contained in this document represents components of the legal health record. It is not the complete legal health record.[facility]
--- OUTSIDE RECORDS SUMMARY | 2024-11-18 17:22 | XMS_ITS | Encounter Summary ---
Author Organization [facility] Address [address] [facility] [address] [place] [address] Phone Care Team Providers Care Central Office Installer Name Role Phone Andrez Manrique MD Unavailable Andrez Kahn MD Unavailable [phone] Luca Alfaro MD Unavailable [phone] America Farmer PHOTOVOLTAIC TESTING TECHNICIAN Primary Care Provider Andrez Osullivan MD Unavailable [phone] Petty Almeida PA Primary Care Provide r Encounter Details Date Type Department Care Team (Late st Contact Info) Description 11/05/2023 Procedure Pass [facility] Echocardiography 70 [place] [address] Social History Tobacco Use Types Packs/Day Years [...] Info) Description 11/28/2024 10:20 AM EDT Appointment [facility] Skeletal Health/Osteoporosis Ctr. and Bone Density Unit 221 [place] [address] Renetta Rosenbaum, INK JET OPERATOR [address] [place] [address] [email or web address] [place] 12/09/2024 8:00 AM EDT Office Visit [facility] Cardiac Transplant [address] [place] [address] Cornelio Dunham MD [address] [place] [address] [place] [address] [email or web address] 12/09/2024 9:00 AM EDT Office Visit [facility] Cardiac Transplant [address] [place] [address] Natalie, Natalie, 01/27/2025 4:40 PM EST Office Visit [facility] Medical Specialties 45 [facility]2 [place] [address] Jose Hidalgo MD, MPH 75 [facility] [place] [address] LUCERO@[email or web address] documented as of this encounter Visit [...] documented as of this encounter Care Teams Central Office Installer Relationship Specialty Start Date End Date America Farmer NP 575 [place] [address] [email or web address] [employer] PCP - General Nurse Practitioner 06/06/23 07/28/24 Petty Almeida PA [address] [place] [address] [place] [address] PCP - General Physician Cloud Developer 07/29/24 Andrez Manrique MD [address] [place] [address] [email or web address]. du Advanced Heart Failure and Transplant Cardiology 08/31/22 Andrez Kahn MD [address] [place] [address] [facility] Consulting Provider Cardiology 08/31/22 Luca Alfaro MD [address] [place] [address] [facility] Pediatric Cardiology 08/31/22 Andrez Osullivan MD [address] [place] [address] GINNY@[facility].[place]. [facility] Pediatric Cardiology 02/05/24 documented as of this encounter Additional Source Comments The information contained in this document represents components of the legal health record. It is not the complete legal health record.[facility]
--- OUTSIDE RECORDS SUMMARY | 2024-11-18 17:22 | XMS_ITS | Encounter Summary ---
Author Organization [facility] Address [address] [facility] [address] [place] [address] Phone Care Team Providers Care Regional Branch Manager Name Role Phone Andrez Manrique MD Unavailable [phone] Andrez Kahn MD Unavailable Luca Alfaro MD Unavailable [phone] Diogo Farmer STATISTICAL METHODS PROFESSOR Primary Care Provider Andrez Osullivan MD Unavailable [phone] Petty Almeida PA Primary Care Provide r Encounter Details Date Type Department Care Team (Late st Contact Info) Description 11/10/2023 Procedure Pass [facility] Periop 75 [place] [address] Social History Tobacco Use Types Packs/Day Years [...] Info) Description 11/28/2024 10:20 AM EDT Appointment [facility] Skeletal Health/Osteoporosis Ctr. and Bone Density Unit 221 [place] [address] Renetta Rosenbaum CNP 75 [place] [address] [email or web address].[place] 12/09/2024 8:00 AM EDT Office Visit [facility] Cardiac Transplant 70 [place] [address] Cornelio Dunham MD 75 [facility] [place] [address] [email or web address] 12/09/2024 9:00 AM EDT Office Visit [facility] Cardiac Transplant 70 [place] [address] Natalie Estrada MD 01/27/2025 4:40 PM EST Office Visit [facility] 45 [facility] ASB2-2 [place] [address] Jose Hidalgo MD, MPH 75 [facility], [place] [address] [email or web address]@[email or web address] documented as of this encounter [...] alternative etiology for respiratory symptoms. Reviewed with gregoyr oSliz to resolve TB Risk flag. 12/20/2023 12/20/2023 [...] documented as of this encounter Care Teams Regional Branch Manager Relationship Specialty Start Date End Date Diogo Farmer NP [address] [place] [address] [email or web address] August PCP - General Nurse Practitioner 06/06/23 07/28/24 Petty Almeida PA [address] [place] [address] PCP - General Physician Mutton Puncher 07/29/24 Andrez Manrique MD [address] [place] [address] [place] [address] [email or web address].e du Advanced Heart Failure and Transplant Cardiology 08/31/22 Andrez Kahn MD [address] [place] [address] Consulting Provider Cardiology 08/31/22 Luca Alfaro MD [address] [place] [address] Pediatric Cardiology 08/31/22 Andrez Osullivan MD [address] [place] [address] MWBONITA@[facility] Pediatric Cardiology 02/05/24 documented as of this encounter Additional Source Comments The information contained in this document represents components of the legal health record. It is not the complete legal health record.[facility]
--- OUTSIDE RECORDS SUMMARY | 2024-11-18 17:22 | XMS_ITS | Encounter Summary ---
Author Organization [facility] Address [address] [place] [address] Phone Care Team Providers Care Console Attendant Name Role Phone Andrez Manrique MD Unavailable [phone] Andrez Kahn MD Unavailable [phone] Luac Alfaro MD Unavailable [phone] America Farmer SECURITY SYSTEMS MANAGER Primary Care Provider Andrez Osullivan MD Unavailable Petty Almeida PA Primary Care Provide r Encounter Details Date Type Department Care Team (Late st Contact Info) Description 03/18/2024 Procedure Pass [facility] Radiology [address] [place] [address] Social History Tobacco Use Types Packs/Day Years [...] high school, GED, job training, learning the Faroese language, technical skills, or developing parenting skills)? [...] Info) Description 11/28/2024 10:20 AM EDT Appointment [facility] Skeletal Health/Osteoporosis Ctr. and Bone Density Unit [address] [place] [address] Renetta Rosenbaum, EXTERIOR DOOR INSTALLER [address] [place] [address] [email or web address] 12/09/2024 8:00 AM EDT Office Visit [facility] Cardiac Transplant [address] [place] [address] Cornelio Dunham MD 75 [facility] [place] [address] [email or web address] 12/09/2024 9:00 AM EDT Office Visit [facility] Cardiac Transplant [address] [place] [address] Unknown, Natalie, 01/27/2025 4:40 PM EST Office Visit [facility] Medical Specialties [address] [address] [place] [address] Jose Hidalgo MD, MPH 75 [facility] [place] [address] [email or web address] documented as of this encounter [...] documented as of this encounter Care Teams Console Attendant Relationship Specialty Start Date End Date America Farmer NP [address] [place] [address] [email or web address] PCP - General Nurse Practitioner 06/06/23 07/28/24 Petty Almeida PA [address] [place] [address] PCP - General Physician Vineyardist 07/29/24 Andrez Manrique MD [address] [place] [address] [email or web address]. du Advanced Heart Failure and Transplant Cardiology 08/31/22 Andrez Kahn MD [address] [place] [address] [email or web address] Consulting Provider Cardiology 08/31/22 Luca Alfaro MD [address] [place] [address] [email or web address] Pediatric Cardiology 08/31/22 Andrez Osullivan MD [address] [place] [address] GINNY@[email or web address] Pediatric Cardiology 02/05/24 documented as of this encounter Additional Source Comments The information contained in this document represents components of the legal health record. It is not the complete legal health record.[facility]
--- OUTSIDE RECORDS SUMMARY | 2024-11-18 17:22 | XMS_ITS | Encounter Summary ---
Author Organization [facility] Address [address] [facility] [address] [place] [address] Phone Care Team Providers Care Other Spatial Scientist Name Role Phone Andrez Manrique MD Unavailable [phone] Andrez Kahn MD Unavailable [phone] Luca Alfaro MD Unavailable Diogo Farmer COST ANALYST Primary Care Provider Andrez Osullivan MD Unavailable [phone] Petty Almeida PA Primary Care Provide r Encounter Details Date Type Department Care Team (Late st Contact Info) Description 11/09/2023 Procedure Pass [facility]iology [address] [place] [address] Social History Tobacco Use Types Packs/Day Years [...] Health/Osteoporosis Ctr. and Bone Density Unit [address] [place] [address] Renetta Rosenbaum CNP [address] [place] [address] [email or web address] [place]TE 12/09/2024 8:00 AM EDT Office Visit [facility] Cardiac Transplant [address] [place] [address] Cornelio Dunham MD 75 [facility] [place] [address] [email or web address] 12/09/2024 9:00 AM EDT Office Visit [facility] Cardiac Transplant [address] [place] [address] Unknown, MD Natalie 01/27/2025 4:40 PM EST Office [facility] [address] [facility] ASB2-2 [place] [address] Jose H[place] MD, MPH [address] [facility] [place] [address] [email or web address] documented as of this encounter Visit Diagnoses [...] documented as of this encounter Care Teams Other Spatial Scientist Relationship Specialty Start Date End Date Diogo Farmer NP [address] [place] [address] [email or web address] [employer] PCP - General Nurse Practitioner 06/06/23 07/28/24 Petty Almeida PA [address] [place] [address] PCP - General Physician Director Clinical Operations 07/29/24 Andrez Manrique MD [address] [place] [address] [place] [address] [email or web address] du Advanced Heart Failure and Transplant Cardiology 08/31/22 Andrez Kahn MD [address] [place] [address] Consulting Provider Cardiology 08/31/22 Luca Alfaro MD [address] [place] [address] Pediatric Cardiology 08/31/22 Andrez Osullivan MD [address] [place] [address] GINNY@[email or web address] Pediatric Cardiology 02/05/24 documented as of this encounter Additional Source Comments The information contained in this document represents components of the legal health record. It is not the complete legal health record.[facility]
--- OUTSIDE RECORDS SUMMARY | 2024-11-18 17:22 | XMS_ITS | Encounter Summary ---
Author Organization [facility] Address [address] [facility] [address] [place] [address] Phone Care Team Providers Care Environmental Technology Professor Name Role Phone Andrez Manrique MD Unavailable [phone] Andrez Kahn MD Unavailable [phone] Luca Alfaro MD Unavailable [phone] America Farmer CHILD CARE SUPERVISOR Primary Care Provider Andrez Osullivan MD Unavailable [phone] Petty Almeida PA Primary Care Provide r Encounter Details Date Type Department Care Team (Late st Contact Info) Description 03/18/2024 Procedure Pass [facility] Angio Interventional Radiology [address] [place] [address] Social History Tobacco Use Types Packs/Day Years [...] high school, GED, job training, learning the Iranian language, technical skills, or developing parenting skills)? [...] Health/Osteoporosis Ctr. and Bone Density Unit [address] [place] [address] Renetta Rosenbaum, MARVIN 75 [place] [address] [email or web address] 12/09/2024 8:00 AM EDT Office Visit [facility] Cardiac Transplant 70 [place] [address] Cornelio Dunham MD [address] [place] [address] [place] [address] [email or web address] 12/09/2024 9:00 AM EDT Office Visit [facility] Cardiac Transplant [address] [place] [address] Unknown, Natalie, 01/27/2025 4:40 PM EST Office Visit [facility] Medical Specialties [address] [address] Jose [place] MD, MPH 75 [place] [address] [email or web address] documented as of this encounter Visit Diagnoses [...] documented as of this encounter Care Teams Environmental Technology Professor Relationship Specialty Start Date End Date America Farmer NP [address] [place] [address] [email or web address] PCP - General Nurse Practitioner 06/06/23 07/28/24 Petty Almeida PA [address] [place] [address] PCP - General Physician Geomagnetist 07/29/24 Andrez Manrique MD [address] [place] [address] [email or web address]. du Advanced Heart Failure and Transplant Cardiology 08/31/22 Andrez Kahn MD [address] [place] [address] [email or web address] Consulting Provider Cardiology 08/31/22 Luca Alfaro MD [address] [place] [address] [facility] Pediatric Cardiology 08/31/22 Andrez Osullivan MD [address] [place] [address] GINNY@[email or web address]. [facility] Pediatric Cardiology 02/05/24 documented as of this encounter Additional Source Comments The information contained in this document represents components of the legal health record. It is not the complete legal health record.[facility]
--- OUTSIDE RECORDS SUMMARY | 2024-11-18 17:22 | XMS_ITS | Encounter Summary ---
Author Organization [facility] Address [address] [facility] [address] [place] [address] Phone Care Team Providers Care Loan Representative Name Role Phone Andrez Manrique MD Unavailable [phone] Andrez Kahn MD Unavailable Luca Alfaro MD Unavailable [phone] America Farmer RADIOLOGY TRANSPORTER Primary Care Provider Andrez Osullivan MD Unavailable [phone] Petty Almeida PA Primary Care Provide r Encounter Details Date Type Department Care Team (Late st Contact Info) Description 11/05/2023 Procedure Pass [facility] Periop [address] [place] [address] Social History Tobacco Use Types Packs/Day Years [...] Info) Description 11/28/2024 10:20 AM EDT Appointment [facility] Skeletal Health/Osteoporosis Ctr. and Bone Density Unit [address] [place] [address] Renetta Rosenbaum, GUITAR PLAYER 75 [place] [address] [email or web address]. [email or web address] 12/09/2024 8:00 AM EDT Office Visit [facility] Cardiac Transplant 70 [place] [address] Cornelio Dunham MD [address] [place] [address] [place] [address] [email or web address] 12/09/2024 9:00 AM EDT Office Visit [facility] Cardiac Transplant 70 [place] [address] Unknown, MD Natalie 01/27/2025 4:40 PM EST Office Visit [facility] Medical Specialties 45 [facility]2 [place] [address] Jose [place] MD, MPH 75 [facility] [place] [address] LUCERO@[email or web address] documented as of this encounter [...] documented as of this encounter Care Teams Loan Representative Relationship Specialty Start Date End Date America Farmer NP [address] [place] [address] [email or web address] PCP - General Nurse Practitioner 06/06/23 07/28/24 Petty Almeida PA [address] [place] [address] [facility] [place] [address] PCP - General Physician Hotel Manager 07/29/24 Andrez Manrique MD [address] [place] [address] [email or web address]. du Advanced Heart Failure and Transplant Cardiology 08/31/22 Andrez Kahn MD [address] [place] [address] [email or web address] Consulting Provider Cardiology 08/31/22 Luca Alfaro MD [address] [place] [address] health [email or web address] Pediatric Cardiology 08/31/22 Andrez Osullivan MD [address] [place] [address] GINNY@[facility].[place]. [facility] Pediatric Cardiology 02/05/24 documented as of this encounter Additional Source Comments The information contained in this document represents components of the legal health record. It is not the complete legal health record.[facility]
--- OUTSIDE RECORDS SUMMARY | 2024-11-18 17:22 | XMS_ITS | Encounter Summary ---
Author Organization [facility] Address [address] [place] [address] Phone Care Team Providers Care Flame Annealing Machine Operator Name Role Phone Andrez Manrique MD Unavailable [phone] Andrez Kahn MD Unavailable Luca Alfaro MD Unavailable [phone] America Farmer SMALL BRAKE FORM OPERATOR Primary Care Provider Andrez Osullivan MD Unavailable [phone] Petty Almeida PA Primary Care Provide r Encounter Details Date Type Department Care Team (Late st Contact Info) Description 04/03/2024 Procedure Pass [facility]'s Radiology [address] [place] [address] Social History Tobacco Use Types Packs/Day Years [...] high school, GED, job training, learning the North Korean language, technical skills, or developing parenting skills)? [...] Info) Description 11/28/2024 10:20 AM EDT Appointment [facility] Skeletal Health/Osteoporosis Ctr. and Bone Density Unit [address] [place] [address] Renetta Rosenbaum, PLUG SHAPER HAND [address] [place] [address] [email or web address] BRIG[facility]TE 12/09/2024 8:00 AM EDT Office Visit [facility] Cardiac Transplant [address] [place] [address] Cornelio Dunham MD 75 [facility] [place] [address] [email or web address] 12/09/2024 9:00 AM EDT Office Visit 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 du Advanced Heart Failure and Transplant Cardiology 08/31/22 Andrez Kahn MD [address] [place] [address] [facility] Consulting Provider Cardiology 08/31/22 Luca Alfaro MD [address] [place] [address] [email or web address] Pediatric Cardiology 08/31/22 Andrez Osullivan MD [address] [place] [address] GINNY@[email or web address]. [facility] Pediatric Cardiology 02/05/24 documented as of this encounter Additional Source Comments The information contained in this document represents components of the legal health record. It is not the complete legal health record.[facility]
--- OUTSIDE RECORDS SUMMARY | 2024-11-18 17:23 | XMS_ITS | Encounter Summary ---
Author Organization [facility] Address [address] [facility] [address] [place] [address] Phone Care Team Providers Care Burn Table Operator Name Role Phone Andrez Manrique MD Unavailable [phone] Andrez Kahn MD Unavailable [phone] Luca Alfaro MD Unavailable [phone] America Farmer CRITICAL CARE NURSE Primary Care Provider Andrez Osullivan MD Unavailable [phone] Petty Almeida PA Primary Care Provide r Encounter Details Date Type Department Care Team (Late st Contact Info) Description 04/02/2024 Procedure Pass [facility] Cardiac Heavy Machinery Operator [address] [place] [address] Social History Tobacco Use Types Packs/Day Years [...] high school, GED, job training, learning the Cameroonian language, technical skills, or developing parenting skills)? [...] Info) Description 11/28/2024 10:20 AM EDT Appointment [facility] Skeletal Health/Osteoporosis Ctr. and Bone Density Unit [address] [place] [address] Renetta Rosenbaum, MARVIN 75 [place] [address] [email or web address] BRIG[facility] 12/09/2024 8:00 AM EDT Office Visit [facility] Cardiac Transplant 70 [place] [address] Cornelio Dunham MD [address] [place] [address] Cardiovascular [place] [address] [email or web address] 12/09/2024 9:00 AM EDT Office Visit [facility] Cardiac Transplant 70 [place] [address] Unknown, Natalie, 01/27/2025 4:40 PM EST [facility] [address] [address] [place] [address] Jose [place] MD, MPH 75 [place] [address] LUCERO@[facility] documented as of this encounter Visit Diagnoses Not on file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 du Advanced Heart Failure and Transplant Cardiology 08/31/22 Andrez Kahn MD [address] [place] [address] [email or web address] Consulting Provider Cardiology 08/31/22 Luca Alfaro MD [address] [place] [address] [facility] Pediatric Cardiology 08/31/22 Andrez Osullivan MD [address] [place] [address] GINNY@[facility].[place]. [facility] Pediatric Cardiology 02/05/24 documented as of this encounter Additional Source Comments The information contained in this document represents components of the legal health record. It is not the complete legal health record.[facility]
--- OUTSIDE RECORDS SUMMARY | 2024-11-18 17:23 | XMS_ITS | Encounter Summary ---
Author Organization [facility] Address [address] [facility] [address] [place] [address] Phone Care Team Providers Care Plant Controller Name Role Phone Andrez Manrique MD Unavailable Andrez Kahn MD Unavailable [phone] Luca Alfaro MD Unavailable [phone] America Farmer LATIN DANCE INSTRUCTOR Primary Care Provider Andrez Osullivan MD Unavailable [phone] Petty Almeida PA Primary Care Provide r Encounter Details Date Type Department Care Team (Late st Contact Info) Description 11/06/2023 Procedure Pass [facility] Echocardiography [address] [place] [address] Social History Tobacco Use Types Packs/Day Years [...] Info) Description 11/28/2024 10:20 AM EDT Appointment [facility] Skeletal Health/Osteoporosis Ctr. and Bone Density Unit [address] [place] [address] Renetta Rosenbaum, LEAD RAMP SERVICE MAN [address] [place] [address] [email or web address] 12/09/2024 8:00 AM EDT Office Visit [facility] Cardiac Transplant [address] [place] [address] Cornelio Dunham MD [address] [place] [address] [place] [address] [email or web address] 12/09/2024 9:00 AM EDT Office Visit [facility] Cardiac Transplant [address] [place] [address] Natalie, Natalie, 01/27/2025 4:40 PM EST Office Visit [facility] Medical Specialties 45 [facility]2-2 [place] [address] Jose [place] MD, MPH 75 [facility] [place] [address] LUCERO@[email or web address] documented as of this encounter Visit [...] documented as of this encounter Care Teams Plant Controller Relationship Specialty Start Date End Date America Farmer NP [address] [place] [address] [email or web address] [employer] PCP - General Nurse Practitioner 06/06/23 07/28/24 Petty Almeida PA [address] [place] [address] [place] [address] PCP - General Physician Photographic Enlarger Operator 07/29/24 Andrez Manrique MD [address] [place] [address] [email or web address]. du Advanced Heart Failure and Transplant Cardiology 08/31/22 Andrez Kahn MD [address] [place] [address] [facility] Consulting Provider Cardiology 08/31/22 Luca Alfaro MD [address] [place] [address] [email or web address] Pediatric Cardiology 08/31/22 Andrez Os[place] MD [address] [place] [address] GINNY@[facility].[place]. [facility] Pediatric Cardiology 02/05/24 documented as of this encounter Additional Source Comments The information contained in this document represents components of the legal health record. It is not the complete legal health record.[facility]
--- OUTSIDE RECORDS SUMMARY | 2024-11-18 17:23 | XMS_ITS | Encounter Summary ---
Author Organization [facility] Address [address] [facility] [address] [place] [address] Phone Care Team Providers Care Loan Originator Name Role Phone Andrez Manrique MD Unavailable [phone] Andrez Kahn MD Unavailable [phone] Luca Alfaro MD Unavailable Diogo Farmer MEMBERSHIP ADMINISTRATOR Primary Care Provider Andrez Osullivan MD Unavailable [phone] Petty Almeida PA Primary Care Provide r Encounter Details Date Type Department Care Team (Late st Contact Info) Description 11/07/2023 Procedure Pass [facility] Angio Interventional Radiology [address] [place] [address] Social History Tobacco Use Types Packs/Day Years [...] Info) Description 11/28/2024 10:20 AM EDT Appointment [facility] Skeletal Health/Osteoporosis Ctr. and Bone Density Unit 221 [place] [address] Renetta Rosenbaum CNP 75 [place] [address] [email or web address] 12/09/2024 8:00 AM EDT Office Visit [facility] Cardiac Transplant [address] [place] [address] Cornelio Dunham MD [address] [facility] [place] [address] [email or web address] 12/09/2024 9:00 AM EDT Office Visit [facility] Cardiac Transplant 70 [place] [address] Natalie, MD Natalie 01/27/2025 4:40 PM EST Office Visit [facility] [address] [facility] ASB2-2 [place] [address] Jose Hidalgo MD, MPH 75 [facility], [place] [address] [email or web address] documented as of this encounter [...] as of this encounter Care Teams Loan Originator Relationship Specialty Start Date End Date Diogo Farmer NP [address] [place] [address] [email or web address] PCP - General Nurse Practitioner 06/06/23 07/28/24 Petty Almeida PA [address] [place] [address] PCP - General Physician Crusher Operator 07/29/24 Andrez Manrique MD [address] [place] [address] and [facility] [place] [address] [email or web address] du Advanced Heart Failure and Transplant Cardiology 08/31/22 Andrez Kahn MD [address] [place] [address] Consulting Provider Cardiology 08/31/22 Luca Alfaro MD [address] [place] [address] Pediatric Cardiology 08/31/22 Andrez Osullivan MD [address] [place] [address] [email or web address] Pediatric Cardiology 02/05/24 documented as of this encounter Additional Source Comments The information contained in this document represents components of the legal health record. It is not the complete legal health record.[facility]
--- OUTSIDE RECORDS SUMMARY | 2024-11-18 17:23 | XMS_ITS | Encounter Summary ---
Author Organization [facility] Address [address] [facility] [address] [place] [address] Phone Care Team Providers Care Production Drilling Machine Operator Name Role Phone Andrez Manrique MD Unavailable [phone] Andrez Kahn MD Unavailable Luca Alfaro MD Unavailable [phone] Diogo Farmer HOGSHEAD HOOPER Primary Care Provider Andrez Osullivan MD Unavailable [phone] Petty Almeida PA Primary Care Provide r Encounter Details Date Type Department Care Team (Late st Contact Info) Description 11/12/2023 Procedure Pass [facility] and Women's Radiology 75 [place] [address] Social History Tobacco Use Types Packs/Day Years [...] Health/Osteoporosis Ctr. and Bone Density Unit 221 [place] [address] Renetta Rosenbaum CNP 75 [place] [address] [email or web address] 12/09/2024 8:00 AM EDT Office Visit [facility] Cardiac Transplant 70 [place] [address] Cornelio Dunham MD 75 [facility] [place] [address] [email or web address] 12/09/2024 9:00 AM EDT Office Visit [facility] Cardiac Transplant 70 [place] [address] Unknown, MD Natalie 01/27/2025 4:40 PM EST Office Visit [facility] [address] [facility] ASB2-2 [place] [address] Jose Hidalgo MD, MPH 75 [facility], [place] [address] [email or web address] documented as of this [...] documented as of this encounter Care Teams Production Drilling Machine Operator Relationship Specialty Start Date End Date Diogo Farmer NP [address] [place] [address] [email or web address] [email or web address] PCP - General Nurse Practitioner 06/06/23 07/28/24 Petty Almeida PA [address] [place] [address] PCP - General Physician Maintenance Worker 07/29/24 Andrez Manrique MD [address] [place] [address] [place] [address] [email or web address] du Advanced Heart Failure and Transplant Cardiology 08/31/22 Andrez Kahn MD [address] [place] [address] Consulting Provider Cardiology 08/31/22 Luca Alfaro MD [address] [place] [address] Pediatric Cardiology 08/31/22 Andrez Osullivan MD [address] [place] [address] [email or web address] Pediatric Cardiology 02/05/24 documented as of this encounter Additional Source Comments The information contained in this document represents components of the legal health record. It is not the complete legal health record.[facility]
--- OUTSIDE RECORDS SUMMARY | 2024-11-18 17:23 | XMS_ITS | Encounter Summary ---
Author Organization [facility] Address [address] [facility] [address] [place] [address] Phone Care Team Providers Care Puller Through Name Role Phone Andrez Manrique MD Unavailable [phone] Andrez Kahn MD Unavailable [phone] Luca Alfaro MD Unavailable [phone] America Farmer HOTEL SERVICE MANAGER Primary Care Provider Andrez Osullivan MD Unavailable [phone] Petty Almeida PA Primary Care Provide r Encounter Details Date Type Department Care Team (Late st Contact Info) Description 04/01/2024 Procedure Pass [facility] Cardiac Civil Preparedness Training Officer [address] [place] [address] Social History Tobacco Use Types Packs/Day Years [...] high school, GED, job training, learning the [place] language, technical skills, or developing parenting skills)? [...] Info) Description 11/28/2024 10:20 AM EDT Appointment [facility] Skeletal Health/Osteoporosis Ctr. and Bone Density Unit 221 [place] [address] Renetta Rosenbaum, MARVIN 75 [place] [address] [email or web address] BRIGETTE 12/09/2024 8:00 AM EDT Office Visit [facility] Cardiac Transplant 70 [place] [address] Cornelio Dunham MD [address] [place] [address] [place] [address] [email or web address] 12/09/2024 9:00 AM EDT Office Visit [facility] Cardiac Transplant 70 [place] [address] Unknown, Natalie, 01/27/2025 4:40 PM EST Office Visit [facility] Specialties [address] [address]2 [place] [address] Jose Hidalgo MD, MPH 75 [place] [address] 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 du Advanced Heart Failure and Transplant Cardiology 08/31/22 Andrez Kahn MD [address] [place] [address] [email or web address] Consulting Provider Cardiology 08/31/22 Luca Alfaro MD [address] [place] [address] [email or web address] Pediatric Cardiology 08/31/22 Andrez Osullivan MD [address] [place] [address] [email or web address].[email or web address]. [facility] Pediatric Cardiology 02/05/24 documented as of this encounter Additional Source Comments The information contained in this document represents components of the legal health record. It is not the complete legal health record.[facility]
--- OUTSIDE RECORDS SUMMARY | 2024-11-18 17:23 | XMS_ITS | Encounter Summary ---
Author Organization [facility] Address [address] [facility] [address] [place] [address] Phone Care Team Providers Care Stock Control Clerk Name Role Phone Andrez Manrique MD Unavailable [phone] Andrez Kahn MD Unavailable [phone] Luca Alfaro MD Unavailable Diogo Farmer AIRCRAFT MECHANIC Primary Care Provider Andrez Osullivan MD Unavailable [phone] Petty Almeida PA Primary Care Provide r Encounter Details Date Type Department Care Team (Late st Contact Info) Description 11/12/2023 Procedure Pass [facility] and Women's Radiology 75 [place] [address] Social History Tobacco Use Types Packs/Day Years [...] Info) Description 11/28/2024 10:20 AM EDT Appointment [facility] Skeletal Health/Osteoporosis Ctr. and Bone Density Unit 221 [place] [address] Renetta Rosenbaum CNP 75 [place] [address] [email or web address] 12/09/2024 8:00 AM EDT Office Visit [facility] Cardiac Transplant 70 [place] [address] Cornelio Dunham MD 75 [facility] [place] [address] [email or web address] 12/09/2024 9:00 AM EDT Office Visit [facility] Cardiac Transplant 70 [place] [address] Unknown, MD Natalie 01/27/2025 4:40 PM EST Office [facility] [address] [facility] ASB2-2 [place] [address] Jose Hidalgo MD, MPH 75 [facility], [place] [address] [email or web address]@[email or web address] documented as of this encounter [...] documented as of this encounter Care Teams Stock Control Clerk Relationship Specialty Start Date End Date Diogo Farmer NP [address] [place] [address] [email or web address] [employer] PCP - General Nurse Practitioner 06/06/23 07/28/24 Petty Almeida PA [address] [place] [address] PCP - General Physician Special Event Assistant 07/29/24 Andrez aMnrique MD [address] [place] [address] [place] [address] [email or web address] du Advanced Heart Failure and Transplant Cardiology 08/31/22 Andrez Kahn MD [address] [place] [address] Consulting Provider Cardiology 08/31/22 Luca Alfaro MD [address] [place] [address] Pediatric Cardiology 08/31/22 Andrez Osullivan MD [address] [place] [address] GINNY@[email or web address] Pediatric Cardiology 02/05/24 documented as of this encounter Additional Source Comments The information contained in this document represents components of the legal health record. It is not the complete legal health record.[facility]
--- OUTSIDE RECORDS SUMMARY | 2024-11-18 17:23 | XMS_ITS | Encounter Summary ---
Author Organization [facility] Address [address] [facility] [address] [place] [address] Phone Care Team Providers Care Right Of Way Cutter Name Role Phone Andrez Manrique MD Unavailable [phone] Andrez Kahn MD Unavailable Luca Alfaro MD Unavailable [phone] America Farmer SIX SIGMA BLACK BELT ENGINEER Primary Care Provider Andrez Osullivan MD Unavailable [phone] Petty Almeida PA Primary Care Provide r Encounter Details Date Type Department Care Team (Late st Contact Info) Description 11/25/2023 Procedure Pass [facility] and Women's Radiology 70 [place] [address] Social History Tobacco Use Types Packs/Day Years [...] Info) Description 11/28/2024 10:20 AM EDT Appointment [facility] Skeletal Health/Osteoporosis Ctr. and Bone Density Unit 221 [place] [address] Renetta Rosenbaum CNP 75 [place] [address] [email or web address] 12/09/2024 8:00 AM EDT Office Visit [facility] Cardiac Transplant 70 [place] [address] Cornelio Dunham MD 75 [facility] [place] [address] [email or web address] 12/09/2024 9:00 AM EDT Office Visit [facility] Cardiac Transplant 70 [place] [address] Unknown, MD Natalie 01/27/2025 4:40 PM EST Office Visit [facility] 45 [facility] ASB2-2 [place] [address] Jose Hidalgo MD, MPH 75 [facility], [place] [address] [email or web address] documented as of this encounter Visit Diagnoses Not on filedocumented in this encounter Additional Health Concerns 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 Advanced Heart Failure and Transplant Cardiology 08/31/22 Andrez Kahn MD [address] [place] [address] Consulting Provider Cardiology 08/31/22 Luca Alfaro MD [address] [place] [address] [place] Pediatric Cardiology 08/31/22 Andrez Osullivan MD [address] [place] [address] [email or web address]. [facility] Pediatric Cardiology 02/05/24 documented as of this encounter Additional Source Comments The information contained in this document represents components of the legal health record. It is not the complete legal health record.[facility]
--- OUTSIDE RECORDS SUMMARY | 2024-11-18 17:23 | XMS_ITS | Encounter Summary ---
Author Organization [facility] Address [address] [facility] [address] [place] [address] Phone Care Team Providers Care Caustic Cresylate Shift Superintendent Name Role Phone Andrez Manrique MD Unavailable [phone] Andrez Kahn MD Unavailable Luca Alfaro MD Unavailable [phone] America Farmer OPTICAL ENGINEER Primary Care Provider Andrez Osullivan MD Unavailable Petty Almeida PA Primary Care Provide r Encounter Details Date Type Department Care Team (Late st Contact Info) Description 11/06/2023 Procedure Pass [facility] and Women's Radiology 75 [place] [address] Social History Tobacco Use Types Packs/Day Years [...] Info) Description 11/28/2024 10:20 AM EDT Appointment [facility] Skeletal Health/Osteoporosis Ctr. and Bone Density Unit 221 [place] [address] Renetta Rosenbaum, MARVIN 75 [place] [address] [email or web address] 12/09/2024 8:00 AM EDT Office Visit [facility] Cardiac Transplant 70 [place] [address] Cornelio Dunham MD 75 [facility] [place] [address] [email or web address] 12/09/2024 9:00 AM EDT Office Visit [facility] Cardiac Transplant 70 [place] [address] Natalie, Natalie, 01/27/2025 4:40 PM EST Office Visit [facility] Medical Specialties 45 [facility]2 [place] [address] Jose Hidlago MD, MPH 75 [facility] [place] [address] [email or web address] documented as of this encounter Visit Diagnoses [...] documented as of this encounter Care Teams Caustic Cresylate Shift Superintendent Relationship Specialty Start Date End Date America Farmer NP [address] [place] [address] [email or web address] [employer] PCP - General Nurse Practitioner 06/06/23 07/28/24 Petty Almeida PA [address] [place] [address] [address] PCP - General Physician Electromechanical Assembly Technician 07/29/24 Andrez Manrique MD [address] [place] [address] [email or web address] Advanced Heart Failure and Transplant Cardiology 08/31/22 Andrez Kahn MD [address] [place] [address] [email or web address] Consulting Provider Cardiology 08/31/22 Luca Alfaro MD [address] [place] [address] [email or web address] Pediatric Cardiology 08/31/22 Andrez Osullivan MD [address] [place] [address] GINNY@[email or web address] Pediatric Cardiology 02/05/24 documented as of this encounter Additional Source Comments The information contained in this document represents components of the legal health record. It is not the complete legal health record.[facility]
--- OUTSIDE RECORDS SUMMARY | 2024-11-18 17:23 | XMS_ITS | Encounter Summary ---
Author Organization [facility] Address [address] [facility] [address] [place] [address] Phone Care Team Providers Care Certified Scrum Master Name Role Phone Andrez Manrique MD Unavailable [phone] Andrez Kahn MD Unavailable Luca Alfaro MD Unavailable [phone] Diogo Farmer DEPUTY SHERIFF GENERALIST Primary Care Provider Andrez Osullivan MD Unavailable [phone] Petty Almeida PA Primary Care Provide r Encounter Details Date Type Department Care Team (Late st Contact Info) Description 11/11/2023 Procedure Pass [facility] Periop 75 [place] [address] Social History Tobacco Use Types Packs/Day Years [...] Info) Description 11/28/2024 10:20 AM EDT Appointment [facility] Skeletal Health/Osteoporosis Ctr. and Bone Density Unit 221 [place] [address] Renetta Rosenbaum CNP 75 [place] [address] [email or web address] 12/09/2024 8:00 AM EDT Office Visit [facility] Cardiac Transplant 70 [place] [address] Cornelio Dunham MD 75 [facility] [place] [address] [email or web address] 12/09/2024 9:00 AM EDT Office Visit [facility] Cardiac Transplant 70 [place] [address] Natalie Estrada MD 01/27/2025 4:40 PM EST Office Visit [facility] 45 [facility] ASB2-2 [place] [address] Jose Hidalgo MD, MPH 75 [facility], [place] [address] [email or web address] documented as of this encounter Visit Diagnoses [...] documented as of this encounter Care Teams Certified Scrum Master Relationship Specialty Start Date End Date Diogo Farmer NP [address] [place] [address] [email or web address] [employer] PCP - General Nurse Practitioner 06/06/23 07/28/24 Petty Almeida PA [address] [place] [address] PCP - General Physician Fresh Foods Clerk 07/29/24 Andrez Manrique MD [address] [place] [address] and [facility] [place] [address] [email or web address] du Advanced Heart Failure and Transplant Cardiology 08/31/22 Andrez Kahn MD [address] [place] [address] Consulting Provider Cardiology 08/31/22 Luca Alfaro MD [address] [place] [address] Pediatric Cardiology 08/31/22 Andrez Osullivan MD [address] [place] [address] MWBONITA@[email or web address] Pediatric Cardiology 02/05/24 documented as of this encounter Additional Source Comments The information contained in this document represents components of the legal health record. It is not the complete legal health record.[facility]
--- OUTSIDE RECORDS SUMMARY | 2024-11-18 17:24 | XMS_ITS | Encounter Summary ---
Author Organization [facility] Address [address] [facility] [address] [place] [address] Phone Care Team Providers Care Revising Clerk Name Role Phone Andrez Manrique MD Unavailable Andrez Kahn MD Unavailable [phone] Luca Alfaro MD Unavailable [phone] America Farmer BONSAI TENDER Primary Care Provider Andrez Osullivan MD Unavailable [phone] Petty Almeida PA Primary Care Provide r Encounter Details Date Type Department Care Team (Late st Contact Info) Description 01/19/[address] [facility] Echocardiography [address] [place] [address] Social History Tobacco Use Types Packs/Day Years [...] 6:50 PM EDT Catrina Schwartz RN * Wolfe Suicide Severity Rating Scale (Screener/Recent Self-Report) Question [...] 11/28/2024 10:[address] [facility] Skeletal Health/Osteoporosis Ctr. and Bone Density Unit [address] [place] [address] Renetta Rosenbaum, MARVIN [address] [place] [address] [email or web address] 12/09/2024 8:00 AM EDT Office [facility] Cardiac Transplant [address] [place] [address] Cornelio Dunham MD 75 [facility] [place] [address] [email or web address] 12/09/2024 9:00 AM EDT Office [facility] Cardiac Transplant 70 [place] [address] Unknown, Natalie, 01/27/2025 4:40 PM EST Office Visit [facility] [address] [facility]2 [place] [address] Jose Hidalgo MD, MPH 75 [place] [address] [email or web address] documented as [...] documented as of this encounter Care Teams Revising Clerk Relationship Specialty Start Date End Date America Farmer NP [address] [place] [address] [email or web address] LotLinxgerman hospitalFasterPants PCP - General Nurse Practitioner 06/06/23 07/28/24 Petty Almeida PA [address] [place] [address] PCP - General Physician Prison Librarian 07/29/24 Andrez Manrique MD [address] [place] [address] [email or web address] du Advanced Heart Failure and Transplant Cardiology 08/31/22 Andrez Kahn MD [address] [place] [address] [email or web address] Consulting Provider Cardiology 08/31/22 Luca Alfaro MD [address] [place] [address] [facility] Pediatric Cardiology 08/31/22 Andrez Osullivan MD [address] [place] [address] [email or web address]. [facility] Pediatric Cardiology 02/05/24 documented as of this encounter Additional Source Comments The information contained in this document represents components of the legal health record. It is not the complete legal health record.[facility]
--- OUTSIDE RECORDS SUMMARY | 2024-11-18 17:24 | XMS_ITS | Encounter Summary ---
Author Organization [facility] Address [address] [facility] [address] [place] [address] Phone Care Team Providers Care Test And Turn Up Technician Name Role Phone Andrez Manrique MD Unavailable Andrez Kahn MD Unavailable [phone] Luca Alfaro MD Unavailable [phone] America Farmer ESTERS AND EMULSIFIERS SUPERVISOR Primary Care Provider Andrez Osullivan MD Unavailable [phone] Petty Almeida PA Primary Care Provide r Encounter Details Date Type Department Care Team (Late st Contact Info) Description 11/14/2023 Procedure Pass [facility] Echocardiography 70 [place] [address] Social History Tobacco Use Types Packs/Day Years [...] Info) Description 11/28/2024 10:20 AM EDT Appointment [facility] Skeletal Health/Osteoporosis Ctr. and Bone Density Unit 221 [place] [address] Renetta Rosenbaum CNP 75 [place] [address] [email or web address] 12/09/2024 8:00 AM EDT Office Visit [facility] Cardiac Transplant 70 [place] [address] Cornelio Dunham MD 75 [facility] [place] [address] [email or web address] 12/09/2024 9:00 AM EDT Office Visit [facility] Cardiac Transplant 70 [place] [address] Natalie Estrada MD 01/27/2025 4:40 PM EST Office Visit [facility] 45 [facility] ASB2-2 [place] [address] Jose Hidalgo MD, MPH [address] [facility], [place] [address] [email or web address] documented as of [...] documented as of this encounter Care Teams Test And Turn Up Technician Relationship Specialty Start Date End Date America Farmer NP [address] [place] [address] [email or web address] MEEPwhite [email or web address] PCP - General Nurse Practitioner 06/06/23 07/28/24 Petty Almeida PA [address] [place] [address] PCP - General Physician Acquisition Lead 07/29/24 Andrez Manrique MD [address] [place] [address] [place] [address] [email or web address] du Advanced Heart Failure and Transplant Cardiology 08/31/22 Andrez Kahn MD [address] [place] [address] Consulting Provider Cardiology 08/31/22 Luca Alfaro MD [address] [place] [address] Pediatric Cardiology 08/31/22 Andrez Osullivan MD [address] [place] [address] (work) GINNY@[email or web address] Pediatric Cardiology 02/05/24 documented as of this encounter Additional Source Comments The information contained in this document represents components of the legal health record. It is not the complete legal health record.[facility]
--- OUTSIDE RECORDS SUMMARY | 2024-11-18 17:24 | XMS_ITS | Encounter Summary ---
Author Organization [facility] Address [address] [facility] [address] [place] [address] Phone Care Team Providers Care Television Writer Name Role Phone Andrez Manrique MD Unavailable [phone] Andrez Kahn MD Unavailable Luca Alfaro MD Unavailable [phone] America Farmer DONOR RELATIONS ASSOCIATE Primary Care Provider Andrez Osullivan MD Unavailable [phone] Petty Almeiad PA Primary Care Provide r Encounter Details Date Type Department Care Team (Late st Contact Info) Description 11/23/2023 Procedure Pass [facility] Cardiac Tire Curer [address] [place] [address] Social History Tobacco Use Types Packs/Day Years [...] Health/Osteoporosis Ctr. and Bone Density Unit 221 [place] [address] Renetta Rosenbaum CNP 75 [place] [address] [email or web address] 12/09/2024 8:00 AM EDT Office Visit [facility] Cardiac Transplant 70 [place] [address] Cornelio Dunham MD 75 [facility] [place] [address] [email or web address] 12/09/2024 9:00 AM EDT Office Visit [facility] Cardiac Transplant 70 [place] [address] Natalie, MD Natalie 01/27/2025 4:40 PM EST Office Visit [facility] Specialties 45 [facility] ASB2-2 [place] [address] Jose Hidalgo MD, MPH 75 [facility], [place] [address] [email or web address] documented as of this encounter Visit [...] documented as of this encounter Care Teams Television Writer Relationship Specialty Start Date End Date America Farmer NP [address] [place] [address] [email or web address] PCP - General Nurse Practitioner 06/06/23 07/28/24 Petty Almeida PA [address] [place] [address] PCP - General Physician Paintings Conservator 07/29/24 Andrez Manrique MD [address] [place] [address] [place] [address] [email or web address]. du Advanced Heart Failure and Transplant Cardiology 08/31/22 Andrez Kahn MD [address] [place] [address] [email or web address] Consulting Provider Cardiology 08/31/22 Luca Alfaro MD [address] [place] [address] [facility] Pediatric Cardiology 08/31/22 Andrez Osullivan MD [address] [place] [address] [email or web address].[place]. [facility] Pediatric Cardiology 02/05/24 documented as of this encounter Additional Source Comments The information contained in this document represents components of the legal health record. It is not the complete legal health record.[facility]
--- OUTSIDE RECORDS SUMMARY | 2024-11-18 17:24 | XMS_ITS | Encounter Summary ---
Author Organization [facility] Address [address] [facility] [address] [place] [address] Phone Care Team Providers Care Drapery Estimator Name Role Phone Andrez Manrique MD Unavailable [phone] Andrez Kahn MD Unavailable Luca Alfaro MD Unavailable [phone] America Farmer PROGRESSIVE CARE NURSE Primary Care Provider Andrez Osullivan MD Unavailable [phone] Petty Almeida PA Primary Care Provide r Encounter Details Date Type Department Care Team (Late st Contact Info) Description 11/22/2023 Procedure Pass [facility] Echocardiography 70 [place] [address] Social History Tobacco Use Types Packs/Day Years [...] Health/Osteoporosis Ctr. and Bone Density Unit 221 [place] [address] Renetta Rosenbaum CNP 75 [place] [address] [email or web address] 12/09/2024 8:00 AM EDT Office Visit [facility] Cardiac Transplant 70 [place] [address] Cornelio Dunham MD 75 [facility] [place] [address] [email or web address] 12/09/2024 9:00 AM EDT Office Visit [facility] Cardiac Transplant 70 [place] [address] Natalie Estrada MD 01/27/2025 4:40 PM EST Office Visit [facility] 45 [facility] ASB2-2 [place] [address] Jose Hidalgo MD, MPH 75 [facility], [place] [address] [email or web address] - [...] documented as of this encounter Care Teams Drapery Estimator Relationship Specialty Start Date End Date America Farmer NP [address] [place] [address] [email or web address] PCP - General Nurse Practitioner 06/06/23 07/28/24 Petty Almeida PA [address] [place] [address] PCP - General Physician Health And Safety Technician 07/29/24 Andrez Manrique MD [address] [place] [address] [place] [address] [email or web address]. du Advanced Heart Failure and Transplant Cardiology 08/31/22 Andrez Kahn MD [address] [place] [address] [email or web address] Consulting Provider Cardiology 08/31/22 Luca Alfaro MD [address] [place] [address] [email or web address] Pediatric Cardiology 08/31/22 Andrez Osullivan MD [address] [place] [address] GINNY@[email or web address]. [facility] Pediatric Cardiology 02/05/24 documented as of this encounter Additional Source Comments The information contained in this document represents components of the legal health record. It is not the complete legal health record.[facility]
--- OUTSIDE RECORDS SUMMARY | 2024-11-18 17:24 | XMS_ITS | Encounter Summary ---
Author Organization [facility] Address [address] [facility] [address] [place] [address] Phone Care Team Providers Care Cellars Supervisor Name Role Phone Andrez Manrique MD Unavailable [phone] Andrez Kahn MD Unavailable [phone] Luca Alfaro MD Unavailable [phone] America Farmer RECOVERY OPERATOR Primary Care Provider Andrez Osullivan MD Unavailable [phone] Petty Almeida PA Primary Care Provide r Encounter Details Date Type Department Care Team (Late st Contact Info) Description 12/06/2023 Procedure Pass [facility] and Women's Radiology 70 [place] [address] Social History Tobacco Use Types Packs/Day Years [...] Info) Description 11/28/2024 10:20 AM EDT Appointment [facility] Skeletal Health/Osteoporosis Ctr. and Bone Density Unit 221 [place] [address] Renetta Rosenbaum CNP 75 [place] [address] [email or web address] [email or web address] 12/09/2024 8:00 AM EDT Office Visit [facility] Cardiac Transplant 70 [place] [address] Cornelio Dunham MD 75 [facility] [place] [address] [email or web address] 12/09/2024 9:00 AM EDT Office Visit [facility] Cardiac Transplant 70 [place] [address] Unknown, MD Natalie 01/27/2025 4:40 PM EST Office 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 du Advanced Heart Failure and Transplant Cardiology 08/31/22 Andrez Kahn MD [address] [place] [address] [facility] [email or web address] Consulting Provider Cardiology 08/31/22 Luca Alfaro MD [address] [place] [address] [email or web address] Pediatric Cardiology 08/31/22 Andrez Osullivan MD [address] [place] [address] GINNY@[email or web address].[place]. [facility] Pediatric Cardiology 02/05/24 documented as of this encounter Additional Source Comments The information contained in this document represents components of the legal health record. It is not the complete legal health record.[facility]
--- OUTSIDE RECORDS SUMMARY | 2024-11-18 17:25 | XMS_ITS | Encounter Summary ---
Author Organization [facility] Address 399 [facility] [address] [place] [address] Phone Care Team Providers Care Production Underwriter Name Role Phone Andrez Manrique MD Unavailable [phone] Andrez Kahn MD Unavailable Luca Alfaro MD Unavailable America Farmer BEEF GRADER Primary Care Provider Andrez Osullivan MD Unavailable [phone] Petty Almeida PA Primary Care Provide r Encounter Details Date Type Department Care Team (Late st Contact Info) Description 11/30/2023 Procedure Pass [facility] Cardiac Marketing Financial Analyst [address] [place] [address] Social History Tobacco Use Types Packs/Day Years [...] Info) Description 11/28/2024 10:20 AM EDT Appointment [facility] Skeletal Health/Osteoporosis Ctr. and Bone Density Unit 221 [place] [address] Renetta Rosenbaum CNP 75 [place] [address] [email or web address] 12/09/2024 8:00 AM EDT Office Visit [facility] Cardiac Transplant 70 [place] [address] Cornelio Dunham MD 75 [facility] [place] [address] [email or web address] 12/09/2024 9:00 AM EDT Office Visit [facility] Cardiac Transplant 70 [place] [address] Natalie, MD Natalie 01/27/2025 4:40 PM EST Office Visit [facility] Specialties 45 [facility] ASB2-2 [place] [address] Jose Hidalgo MD, MPH 75 [facility], [place] [address] [email or web address] documented as of this encounter [...] as of this encounter Care Teams Production Underwriter Relationship Specialty Start Date End Date America Farmer NP [address] [place] [address] [email or web address] PCP - General Nurse Practitioner 06/06/23 07/28/24 Petty Almeida PA [address] [place] [address] PCP - General Physician Raw Material Handler 07/29/24 Andrez Manrique MD [address] [place] [address] [email or web address]. du Advanced Heart Failure and Transplant Cardiology 08/31/22 Andrez Kahn MD [address] [place] [address] [email or web address] Consulting Provider Cardiology 08/31/22 Luca Alfaro MD [address] [place] [address] [email or web address] Pediatric Cardiology 08/31/22 Andrez Osullivan MD [address] [place] [address] GINNY@[email or web address].[place]. [facility] Pediatric Cardiology 02/05/24 documented as of this encounter Additional Source Comments The information contained in this document represents components of the legal health record. It is not the complete legal health record.[facility]
--- OUTSIDE RECORDS SUMMARY | 2024-11-18 17:25 | XMS_ITS | Encounter Summary ---
Author Organization [facility] Address [address] [facility] [address] [place] [address] Phone Care Team Providers Care Hospice Fellow Name Role Phone Andrez Manrique MD Unavailable [phone] Andrez Kahn MD Unavailable Luca Alfaro MD Unavailable America Farmer BEVELING MACHINE OPERATOR Primary Care Provider Andrez Osullivan MD Unavailable [phone] Petty Almeida PA Primary Care Provide r Encounter Details Date Type Department Care Team (Late st Contact Info) Description 12/08/2023 Procedure Pass [facility] and Women's Radiology 75 [place] [address] Social History Tobacco Use Types Packs/Day Years [...] Info) Description 11/28/2024 10:20 AM EDT Appointment [facility] Skeletal Health/Osteoporosis Ctr. and Bone Density Unit 221 [place] [address] Renetta Rosenbaum CNP 75 [place] [address] [email or web address] 12/09/2024 8:00 AM EDT Office Visit [facility] Cardiac Transplant 70 [place] [address] Cornelio Dunham MD 75 [facility] [place] [address] [email or web address] 12/09/2024 9:00 AM EDT Office Visit [facility] Cardiac Transplant 70 [place] [address] Unknown, MD Natalie 01/27/2025 4:40 PM EST Office Visit [facility] 45 [facility] ASB2-2 [place] [address] Jose Hidalgo MD, MPH 75 [facility], [place] [address] [email or web address] documented as of this encounter [...] documented as of this encounter Care Teams Hospice Fellow Relationship Specialty Start Date End Date America Farmer NP 575 [place] [address] [email or web address] PCP - General Nurse Practitioner 06/06/23 07/28/24 Petty Almeida PA [address] [place] [address] PCP - General Physician Field Adjuster 07/29/24 Andrez Manrique MD [address] [place] [address] [email or web address] du Advanced Heart Failure and Transplant Cardiology 08/31/22 Andrez Kahn MD [address] [place] [address] carolest. [email or web address] Consulting Provider Cardiology 08/31/22 Luca Alfaro MD [address] [place] [address] [email or web address] Pediatric Cardiology 08/31/22 Andrez Osullivan MD [address] [place] [address] GINNY@[facility].[place]. [facility] Pediatric Cardiology 02/05/24 documented as of this encounter Additional Source Comments The information contained in this document represents components of the legal health record. It is not the complete legal health record.[facility]
--- OUTSIDE RECORDS SUMMARY | 2024-11-18 17:25 | XMS_ITS | Encounter Summary ---
Author Organization [facility] Address [address] [facility] [address] [place] [address] Phone Care Team Providers Care Milling Supervisor Name Role Phone Andrez Manrique MD Unavailable [phone] Andrez Kahn MD Unavailable [phone] Luca Alfaro MD Unavailable [phone] America Farmer DIRECTOR INFORMATICS Primary Care Provider Andrez Osullivan MD Unavailable [phone] Petty Almeida PA Primary Care Provide r Encounter Details Date Type Department Care Team (Late st Contact Info) Description 12/13/2023 Procedure Pass [facility] Endoscopy Department [address] [place] [address] Social History Tobacco Use Types Packs/Day Years [...] Info) Description 11/28/2024 10:20 AM EDT Appointment [facility] Skeletal Health/Osteoporosis Ctr. and Bone Density Unit 221 [place] [address] Renetta Rosenbaum CNP 75 [place] [address] [email or web address] [email or web address] 12/09/2024 8:00 AM EDT Office Visit [facility] Cardiac Transplant 70 [place] [address] Cornelio Dunham MD 75 [facility] [place] [address] [email or web address] 12/09/2024 9:00 AM EDT Office Visit [facility] Cardiac Transplant 70 [place] [address] Natalie Estrada MD 01/27/2025 4:40 PM EST Office Visit [facility] 45 [facility] ASB2-2 [place] [address] Jose Hidalgo MD, MPH 75 [facility], [place] [address] [email or web address] documented as of this encounter Visit Diagnoses [...] documented as of this encounter Care Teams Milling Supervisor Relationship Specialty Start Date End Date America Farmer NP [address] [place] [address] [email or web address] PCP - General Nurse Practitioner 06/06/23 07/28/24 Petty Almeida PA [address] [place] [address] PCP - General Physician Finger Cobbler 07/29/24 Andrez Manrique MD [address] [place] [address] [email or web address] du Advanced Heart Failure and Transplant Cardiology 08/31/22 Andrez Kahn MD [address] [place] [address] car[facility]. [email or web address] Consulting Provider Cardiology 08/31/22 Luca Alfaro MD [address] [place] [address] [email or web address] Pediatric Cardiology 08/31/22 Andrez Osullivan MD [address] [place] [address] GINNY@[email or web address].[email or web address]. [facility] Pediatric Cardiology 02/05/24 documented as of this encounter Additional Source Comments The information contained in this document represents components of the legal health record. It is not the complete legal health record.[facility]
--- OUTSIDE RECORDS SUMMARY | 2024-11-18 17:25 | XMS_ITS | Encounter Summary ---
Author Organization [facility] Address [address] [facility] [address] [place] [address] Phone Care Team Providers Care Director Of Financial Reporting Name Role Phone Andrez Manrique MD Unavailable Andrez Kahn MD Unavailable Luca Alfaro MD Unavailable [phone] America Farmer VOCATIONAL TECHNICAL EDUCATION TEACHER Primary Care Provider Andrez Osullivan MD Unavailable [phone] Petty Almeida PA Primary Care Provide r Encounter Details Date Type Department Care Team (Late st Contact Info) Description 11/29/2023 Procedure Pass [facility] Echocardiography 70 [place] [address] Social History Tobacco Use Types Packs/Day Years [...] Info) Description 11/28/2024 10:20 AM EDT Appointment [facility] Skeletal Health/Osteoporosis Ctr. and Bone Density Unit 221 [place] [address] Renetta Rosenbaum CNP 75 [place] [address] [email or web address] 12/09/2024 8:00 AM EDT Office Visit [facility] Cardiac Transplant 70 [place] [address] Cornelio Dunham MD 75 [facility] [place] [address] [email or web address] 12/09/2024 9:00 AM EDT Office Visit [facility] Cardiac Transplant 70 [place] [address] Natalie Estrada MD 01/27/2025 4:40 PM EST Office Visit [facility] Specialties 45 [facility] ASB2-2 [place] [address] Jose Hidalgo MD, MPH 75 [facility], [place] [address] [email or web address] documented as of this encounter Visit Diagnoses [...] documented as of this encounter Care Teams Director Of Financial Reporting Relationship Specialty Start Date End Date America Farmer NP [address] [place] [address] [email or web address] PCP - General Nurse Practitioner 06/06/23 07/28/24 Petty Almeida PA [address] [place] [address] PCP - General Physician Senior Graduate Advisor 07/29/24 Andrez Manrique MD [address] [place] [address] [email or web address]. du Advanced Heart Failure and Transplant Cardiology 08/31/22 Andrez Kahn MD [address] [place] [address] [email or web address] Consulting Provider Cardiology 08/31/22 Luca Alfaro MD [address] [place] [address] [facility] Pediatric Cardiology 08/31/22 Andrez Osullivan MD [address] [place] [address] GINNY@[email or web address].[place]. [facility] Pediatric Cardiology 02/05/24 documented as of this encounter Additional Source Comments The information contained in this document represents components of the legal health record. It is not the complete legal health record.[facility]
--- OUTSIDE RECORDS SUMMARY | 2024-11-18 17:25 | XMS_ITS | Encounter Summary ---
Author Organization [facility] Address 399 [facility] [address] [place] [address] Phone Care Team Providers Care Assistant Strength Coach Name Role Phone Andrez Manrique MD Unavailable [phone] Andrez Kahn MD Unavailable Luca Alfaro MD Unavailable America Farmer FLOUR BROKER Primary Care Provider Andrez Osullivan MD Unavailable [phone] Petty Almeida PA Primary Care Provide r Encounter Details Date Type Department Care Team (Late st Contact Info) Description 12/06/2023 Procedure Pass [facility] Cross Sectional Interventional Radiology [address] [place] [address] Social History Tobacco Use Types Packs/Day Years [...] Info) Description 11/28/2024 10:20 AM EDT Appointment [facility] Skeletal Health/Osteoporosis Ctr. and Bone Density Unit 221 [place] [address] Renetta Rosenbaum CNP 75 [place] [address] [email or web address] 12/09/2024 8:00 AM EDT Office Visit [facility] Cardiac Transplant 70 [place] [address] Cornelio Dunham MD 75 [facility] [place] [address] [email or web address] 12/09/2024 9:00 AM EDT Office Visit [facility] Cardiac Transplant 70 [place] [address] Natalie, MD Natalie 01/27/2025 4:40 PM EST Office Visit [facility] 45 [facility] ASB2-2 [place] [address] Jose Hidalgo MD, MPH 75 [facility], [place] [address] [email or web address] documented as of this encounter Visit [...] documented as of this encounter Care Teams Assistant Strength Coach Relationship Specialty Start Date End Date America Farmer NP [address] [place] [address] [email or web address] PCP - General Nurse Practitioner 06/06/23 07/28/24 Petty Almeida PA [address] [place] [address] PCP - General Physician Hydroelectric Systems Technician 07/29/24 Andrez Manrique MD [address] [place] [address] [email or web address]. du Advanced Heart Failure and Transplant Cardiology 08/31/22 Andrez Kahn MD [address] [place] [address] [email or web address] Consulting Provider Cardiology 08/31/22 Luca Alfaro MD [address] [place] [address] [email or web address] Pediatric Cardiology 08/31/22 Andrez Osullivan MD [address] [place] [address] GINNY@[email or web address]. [facility] Pediatric Cardiology 02/05/24 documented as of this encounter Additional Source Comments The information contained in this document represents components of the legal health record. It is not the complete legal health record.[facility]
--- OUTSIDE RECORDS SUMMARY | 2024-11-18 17:25 | XMS_ITS | Encounter Summary ---
Author Organization [facility] Address 399 [facility] [address] [place] [address] Phone Care Team Providers Care Insurance Writer Name Role Phone Andrez Manrique MD Unavailable [phone] Andrez Kahn MD Unavailable [phone] Luca Alfaro MD Unavailable [phone] America Farmer TEXTILE COATING MACHINE OPERATOR Primary Care Provider Andrez Osullivan MD Unavailable [phone] Petty Almeida PA Primary Care Provide r Encounter Details Date Type Department Care Team (Late st Contact Info) Description 12/13/2023 Procedure Pass [facility] 75 [place] [address] Social History Tobacco Use Types Packs/Day Years [...] Description 11/28/2024 10:[address] [facility] Skeletal Health/Osteoporosis Ctr. and Bone Density Unit 221 [place] [address] Renetta Rosenbaum CNP 75 [place] [address] [email or web address] 12/09/2024 8:00 AM EDT Office [facility] Cardiac Transplant 70 [place] [address] Cornelio Dunham MD 75 [facility] [place] [address] [email or web address] 12/09/2024 9:00 AM EDT Office [facility] Cardiac Transplant 70 [place] [address] Unknown, MD Natalie 01/27/2025 4:40 PM EST Office Visit [facility] 45 [facility] ASB2-2 [place] [address] Jose Hidalgo MD, MPH 75 [facility], [place] [address] [email or web address]@[email or web address] documented [...] documented as of this encounter Care Teams Insurance Writer Relationship Specialty Start Date End Date America Farmer NP 575 [place] [address] [email or web address] PCP - General Nurse Practitioner 06/06/23 07/28/24 Petty Almeida PA [address] [place] [address] PCP - General Physician Encyclopedia Research Worker 07/29/24 Andrez Manrique MD [address] [place] [address] [email or web address]. du Advanced Heart Failure and Transplant Cardiology 08/31/22 Andrez Kahn MD [address] [place] [address] [email or web address] Consulting Provider Cardiology 08/31/22 Luca Alfaro MD [address] [place] [address] [email or web address] Pediatric Cardiology 08/31/22 Andrez Osullivan MD [address] [place] [address] GINNY@[facility] Pediatric Cardiology 02/05/24 documented as of this encounter Additional Source Comments The information contained in this document represents components of the legal health record. It is not the complete legal health record.[facility]
--- OUTSIDE RECORDS SUMMARY | 2024-11-18 17:25 | XMS_ITS | Encounter Summary ---
Author Organization [facility] Address 399 [facility] [address] [place] [address] Phone Care Team Providers Care Thimble Press Operator Name Role Phone Andrez Manrique MD Unavailable Andrez Kahn MD Unavailable Luca Alfaro MD Unavailable [phone] America Farmer REVIT DRAFTER Primary Care Provider Andrez Osullivan MD Unavailable [phone] Petty Almeida PA Primary Care Provide r Encounter Details Date Type Department Care Team (Late st Contact Info) Description 12/04/2023 Procedure Pass [facility] Echocardiography 70 [place] [address] Social History Tobacco Use Types Packs/Day Years [...] Info) Description 11/28/2024 10:20 AM EDT Appointment [facility] Skeletal Health/Osteoporosis Ctr. and Bone Density Unit 221 [place] [address] Renetta Rosenbaum CNP 75 [place] [address] [email or web address] [email or web address] 12/09/2024 8:00 AM EDT Office Visit [facility] Cardiac Transplant 70 [place] [address] Cornelio Dunham MD 75 [facility] [place] [address] [email or web address] 12/09/2024 9:00 AM EDT Office Visit [facility] Cardiac Transplant 70 [place] [address] Natalie Estrada MD 01/27/2025 4:40 PM EST Office Visit [facility] Specialties 45 [facility] ASB2-2 [place] [address] Jose Hidalgo MD, MPH 75 [facility], [place] [address] [email or web address]@[email or web address] documented as of this [...] documented as of this encounter Care Teams Thimble Press Operator Relationship Specialty Start Date End Date America Farmer NP 575 [place] [address] [email or web address] PCP - General Nurse Practitioner 06/06/23 07/28/24 Petty Almeida PA [address] [place] [address] PCP - General Physician Creel Cleaner 07/29/24 Andrez Manrique MD [address] [place] [address] [email or web address]. du Advanced Heart Failure and Transplant Cardiology 08/31/22 Andrez Kahn MD [address] [place] [address] [email or web address] Consulting Provider Cardiology 08/31/22 Luca Alfaro MD [address] [place] [address] [facility] Pediatric Cardiology 08/31/22 Andrez Osullivan MD [address] [place] [address] GINNY@[email or web address]. [facility] Pediatric Cardiology 02/05/24 documented as of this encounter Additional Source Comments The information contained in this document represents components of the legal health record. It is not the complete legal health record.[facility]
--- OUTSIDE RECORDS SUMMARY | 2024-11-18 17:25 | XMS_ITS | Encounter Summary ---
Author Organization [facility] Address [address] [facility] [address] [place] [address] Phone Care Team Providers Care Briquetter Operator Name Role Phone Andrez Manrique MD Unavailable Andrez Kahn MD Unavailable Luca Alfaro MD Unavailable [phone] America Farmer DESIGN PROJECT MANAGER Primary Care Provider Andrez Osullivan MD Unavailable [phone] Petty Almeida PA Primary Care Provide r Encounter Details Date Type Department Care Team (Late st Contact Info) Description 12/06/2023 Procedure Pass [facility] 70 [place] [address] Social History Tobacco Use Types Packs/Day Years [...] Health/Osteoporosis Ctr. and Bone Density Unit 221 [place] [address] Renetta Rosenbaum CNP 75 [place] [address] [email or web address] [email or web address] 12/09/2024 8:00 AM EDT Office [facility] Cardiac Transplant 70 [place] [address] Cornelio Dunham MD 75 [facility] [place] [address] [email or web address] 12/09/2024 9:00 AM EDT Office [facility] Cardiac Transplant 70 [place] [address] Unknown, MD Natalie 01/27/2025 4:40 PM EST Office [facility] 45 [facility] ASB2-2 [place] [address] Jose Hidalgo MD, MPH 75 [facility], [place] [address] [email or web address]@[facility] documented as of this encounter Visit Diagnoses [...] documented as of this encounter Care Teams Briquetter Operator Relationship Specialty Start Date End Date America Farmer NP [address] [place] [address] [email or web address] PCP - General Nurse Practitioner 06/06/23 07/28/24 Petty Almeida PA [address] [place] [address] PCP - General Physician Weighmaster Lead 07/29/24 Andrez Manrique MD [address] [place] [address] [email or web address]. du Advanced Heart Failure and Transplant Cardiology 08/31/22 Andrez Kahn MD [address] [place] [address] [email or web address] Consulting Provider Cardiology 08/31/22 Luca Alfaro MD [address] [place] [address] [email or web address] Pediatric Cardiology 08/31/22 Andrez Osullivan MD [address] [place] [address] GINNY@[email or web address].[email or web address]. [facility] Pediatric Cardiology 02/05/24 documented as of this encounter Additional Source Comments The information contained in this document represents components of the legal health record. It is not the complete legal health record.[facility]
--- OUTSIDE RECORDS SUMMARY | 2024-11-18 17:26 | XMS_ITS | Encounter Summary ---
Author Organization [facility] Address [address] [facility] [address] [place] [address] Phone Care Team Providers Care Web Application Dev Specialist Name Role Phone Andrez Manrique MD Unavailable Andrez Kahn MD Unavailable [phone] Luca Alfaro MD Unavailable [phone] America Farmer PCAT INSTRUCTOR Primary Care Provider Andrez Osullivan MD Unavailable [phone] Petty Almeida PA Primary Care Provide r Encounter Details Date Type Department Care Team (Late st Contact Info) Description 12/14/2023 Procedure Pass [facility] Echocardiography 70 [place] [address] Social History Tobacco Use Types Packs/Day Years [...] Info) Description 11/28/2024 10:20 AM EDT Appointment [facility] Skeletal Health/Osteoporosis Ctr. and Bone Density Unit 221 [place] [address] Renetta Rosenbaum CNP 75 [place] [address] [email or web address] [email or web address] 12/09/2024 8:00 AM EDT Office Visit [facility] Cardiac Transplant 70 [place] [address] Cornelio Dunham MD 75 [facility] [place] [address] [email or web address] 12/09/2024 9:00 AM EDT Office Visit [facility] Cardiac Transplant 70 [place] [address] Natalie Estrada MD 01/27/2025 4:40 PM EST Office Visit [facility] Specialties 45 [facility] ASB2-2 [place] [address] Jose Hidalgo MD, MPH 75 [facility], [facility] [place] [address] [email or web address]@[email or web address] documented as [...] documented as of this encounter Care Teams Web Application Dev Specialist Relationship Specialty Start Date End Date America Farmer NP [address] [place] [address] [email or web address] PCP - General Nurse Practitioner 06/06/23 07/28/24 Petty Almeida PA [address] [place] [address] [address] PCP - General Physician Engine Emission Technician 07/29/24 Andrez Manrique MD [address] [place] [address] [place] [address] [email or web address]. du Advanced Heart Failure and Transplant Cardiology 08/31/22 Andrez Kahn MD [address] [place] [address] [email or web address] Consulting Provider Cardiology 08/31/22 Luca Alfaro MD [address] [place] [address] [email or web address] Pediatric Cardiology 08/31/22 Andrez Osullivan MD [address] [place] [address] GINNY@[email or web address]. [facility] Pediatric Cardiology 02/05/24 documented as of this encounter Additional Source Comments The information contained in this document represents components of the legal health record. It is not the complete legal health record.[facility]
--- OUTSIDE RECORDS SUMMARY | 2024-11-18 17:26 | XMS_ITS | Encounter Summary ---
Author Organization [facility] Address 399 [facility] [address] [place] [address] Phone Care Team Providers Care Plastic Hospital Products Assembler Name Role Phone Andrez Manrique MD Unavailable Andrez Kahn MD Unavailable Luca Alfaro MD Unavailable [phone] America Farmer SUPERVISOR COOK ROOM Primary Care Provider Andrez Osullivan MD Unavailable [phone] Petty Almeida PA Primary Care Provide r Encounter Details Date Type Department Care Team (Late st Contact Info) Description 12/17/2023 Procedure Pass [facility] Radiology 70 [place] [address] Social History Tobacco Use Types Packs/Day Years [...] Info) Description 11/28/2024 10:20 AM EDT Appointment [facility] Skeletal Health/Osteoporosis Ctr. and Bone Density Unit 221 [place] [address] Renetta Rosenbaum CNP 75 [place] [address] [email or web address] 12/09/2024 8:00 AM EDT Office Visit [facility] Cardiac Transplant 70 [place] [address] Cornelio Dunham MD 75 [facility] [place] [address] [email or web address] 12/09/2024 9:00 AM EDT Office Visit [facility] Cardiac Transplant 70 [place] [address] Unknown, MD Natalie 01/27/2025 4:40 PM EST Office [facility] 45 [facility] ASB2-2 [place] [address] Jose Hidalgo MD, MPH [address] [facility], [place] [address] [email or web address] documented as of this encounter [...] documented as of this encounter Care Teams Plastic Hospital Products Assembler Relationship Specialty Start Date End Date America Farmer NP 575 [place] [address] [email or web address] PCP - General Nurse Practitioner 06/06/23 07/28/24 Petty Almeida PA [address] [place] [address] PCP - General Physician Quality Tech 07/29/24 Andrez Manrique MD [address] [place] [address] [email or web address] du Advanced Heart Failure and Transplant Cardiology 08/31/22 Andrez Kahn MD [address] [place] [address] [facility] Consulting Provider Cardiology 08/31/22 Luca Alfaro MD [address] [place] [address] [facility], Pediatric Cardiology 08/31/22 Andrez Osullivan MD [address] [place] [address] GINNY@[email or web address] Pediatric Cardiology 02/05/24 documented as of this encounter Additional Source Comments The information contained in this document represents components of the legal health record. It is not the complete legal health record.[facility]
--- OUTSIDE RECORDS SUMMARY | 2024-11-18 17:26 | XMS_ITS | Encounter Summary ---
Author Organization [facility] Address [address] [facility] [address] [place] [address] Phone Care Team Providers Care Lemon Grower Name Role Phone Andrez Manrique MD Unavailable [phone] Andrez Kahn MD Unavailable [phone] Luca Alfaro MD Unavailable [phone] America Farmer OPERATIONS DEVELOPER Primary Care Provider Andrez Osullivan MD Unavailable [phone] Petty Almeida PA Primary Care Provide r Encounter Details Date Type Department Care Team (Late st Contact Info) Description 12/18/[address] [facility] Rad[facility] 70 [place] [address] Social History Tobacco Use Types Packs/Day Years [...] Health/Osteoporosis Ctr. and Bone Density Unit 221 [place] [address] Renetta Rosenbaum CNP 75 [place] [address] [email or web address] [email or web address] 12/09/2024 8:00 AM EDT Office Visit [facility] Cardiac Transplant 70 [place] [address] Cornelio Dunham MD 75 [facility] [place] [address] [email or web address] 12/09/2024 9:00 AM EDT Office Visit [facility] Cardiac Transplant 70 [place] [address] Unknown, MD Natalie 01/27/2025 4:40 PM EST Office Visit [facility] 45 [facility] ASB2-2 [place] [address] Jose Hidalgo MD, MPH 75 [facility], [place] [address] [email or web address] documented as of this [...] documented as of this encounter Care Teams Lemon Grower Relationship Specialty Start Date End Date America Farmer NP [address] [place] [address] [email or web address] PCP - General Nurse Practitioner 06/06/23 07/28/24 Petty Almeida PA [address] [place] [address] PCP - General Physician It Application Administrator 07/29/24 Andrez Manrique MD [address] [place] [address] [email or web address] du Advanced Heart Failure and Transplant Cardiology 08/31/22 Andrez Kahn MD [address] [place] [address] [email or web address] Consulting Provider Cardiology 08/31/22 Luca Alfaro MD [address] [place] [address] [email or web address] Pediatric Cardiology 08/31/22 Andrez Osullivan MD [address] [place] [address] GINNY@[email or web address] Pediatric Cardiology 02/05/24 documented as of this encounter Additional Source Comments The information contained in this document represents components of the legal health record. It is not the complete legal health record.[facility]
--- OUTSIDE RECORDS SUMMARY | 2024-11-18 17:26 | XMS_ITS | Encounter Summary ---
Author Organization [facility] Address [address] [facility] [address] [place] [address] Phone Care Team Providers Care Banquet Manager Name Role Phone Andrez Manrique MD Unavailable [phone] Andrez Kahn MD Unavailable Luca Alfaro MD Unavailable America Farmer PLANISHING PRESS OPERATOR Primary Care Provider Andrez Osullivan MD Unavailable Petty Almeida PA Primary Care Provide r Encounter Details Date Type Department Care Team (Late st Contact Info) Description 12/19/2023 Procedure Pass [facility] Cross Sectional Interventional Radiology [address] [place] [address] Social History Tobacco Use Types Packs/Day Years [...] Health/Osteoporosis Ctr. and Bone Density Unit 221 [place] [address] Renetta Rosenbaum CNP 75 [place] [address] [email or web address] [email or web address] 12/09/2024 8:00 AM EDT Office Visit [facility] Cardiac Transplant 70 [place] [address] Cornelio Dunham MD 75 [facility] [place] [address] [email or web address] 12/09/2024 9:00 AM EDT Office Visit [facility] Cardiac Transplant 70 [place] [address] Natalie, MD Natalie 01/27/2025 4:40 PM EST Office Visit [facility] 45 [facility] ASB2-2 [place] [address] Jose Hidalgo MD, MPH 75 [facility], [place] [address] [email or web address] documented as of this encounter Visit [...] documented as of this encounter Care Teams Banquet Manager Relationship Specialty Start Date End Date America Farmer NP [address] [place] [address] [email or web address] PCP - General Nurse Practitioner 06/06/23 07/28/24 Petty Almeida PA [address] [place] [address] PCP - General Physician Printing Pressman 07/29/24 Andrez Manrique MD [address] [place] [address] [email or web address] du Advanced Heart Failure and Transplant Cardiology 08/31/22 Andrez Kahn MD [address] [place] [address] [email or web address] Consulting Provider Cardiology 08/31/22 Luca Alfaro MD [address] [place] [address] smallpox Pediatric Cardiology 08/31/22 Andrez Osullivan MD [address] [place] [address] [email or web address] Pediatric Cardiology 02/05/24 documented as of this encounter Additional Source Comments The information contained in this document represents components of the legal health record. It is not the complete legal health record.[facility]
--- OUTSIDE RECORDS SUMMARY | 2024-11-18 17:26 | XMS_ITS | Encounter Summary ---
Author Organization [facility] Address [address] [facility] [address] [place] [address] Phone Care Team Providers Care Bearing Press Machine Operator Name Role Phone Andrez Manrique MD Unavailable [phone] Andrez Kahn MD Unavailable Luca Alfaro MD Unavailable [phone] America Farmer SOFTWARE IMPLEMENTATION PROJECT MANAGER Primary Care Provider Andrez Osullivan MD Unavailable [phone] Petty Almeida PA Primary Care Provide r Encounter Details Date Type Department Care Team (Late st Contact Info) Description 12/15/2023 Procedure Pass [facility] Endoscopy Department [address] [place] [address] Social History Tobacco Use Types Packs/Day Years [...] Health/Osteoporosis Ctr. and Bone Density Unit 221 [place] [address] Renetta Rosenbaum CNP 75 [place] [address] [email or web address] 12/09/2024 8:00 AM EDT Office Visit [facility] Cardiac Transplant 70 [place] [address] Cornelio Dunham MD 75 [facility] [place] [address] [email or web address] 12/09/2024 9:00 AM EDT Office Visit [facility] Cardiac Transplant 70 [place] [address] Natalie Estrada MD 01/27/2025 4:40 PM EST Office Visit [facility] 45 [facility] ASB2-2 [place] [address] Jose Hidalgo MD, MPH 75 [facility], [place] [address] [email or web address] documented as of this encounter Visit Diagnoses [...] documented as of this encounter Care Teams Bearing Press Machine Operator Relationship Specialty Start Date End Date America Farmer NP [address] [place] [address] [email or web address] PCP - General Nurse Practitioner 06/06/23 07/28/24 Petty Almeida PA [address] [place] [address] PCP - General Physician Chart Reader 07/29/24 Andrez Manrique MD [address] [place] [address] [email or web address]. du Advanced Heart Failure and Transplant Cardiology 08/31/22 Andrez Kahn MD [address] [place] [address] [email or web address] Consulting Provider Cardiology 08/31/22 Luca Alfaro MD [address] [place] [address] [email or web address] Pediatric Cardiology 08/31/22 Andrez Osullivan MD [address] [place] [address] [email or web address]. [facility] Pediatric Cardiology 02/05/24 documented as of this encounter Additional Source Comments The information contained in this document represents components of the legal health record. It is not the complete legal health record.[facility]
--- OUTSIDE RECORDS SUMMARY | 2024-11-18 17:26 | XMS_ITS | Encounter Summary ---
Author Organization [facility] Address [address] [facility] [address] [place] [address] Phone Care Team Providers Care Worm Sorter Name Role Phone Andrez Manrique MD Unavailable [phone] Andrez Kahn MD Unavailable Luca Alfaro MD Unavailable America Farmer GOLF SHOE SPIKE ASSEMBLER Primary Care Provider Andrez Osullivan MD Unavailable [phone] Petty Almeida PA Primary Care Provide r Encounter Details Date Type Department Care Team (Late st Contact Info) Description 12/14/2023 Procedure Pass [facility] Cardiac Research And Development Manager [address] [place] [address] Social History Tobacco Use Types Packs/Day Years [...] Info) Description 11/28/2024 10:20 AM EDT Appointment [facility] Skeletal Health/Osteoporosis Ctr. and Bone Density Unit 221 [place] [address] Renetta Rosenbaum CNP 75 [place] [address] [email or web address] [email or web address] 12/09/2024 8:00 AM EDT Office Visit [facility] Cardiac Transplant 70 [place] [address] Cornelio Dunham MD 75 [facility] [place] [address] [email or web address] 12/09/2024 9:00 AM EDT Office Visit [facility] Cardiac Transplant 70 [place] [address] Natalie, MD Natalie 01/27/2025 4:40 PM EST Office Visit [facility] 45 [facility] ASB2-2 [place] [address] Jose Hidalgo MD, MPH 75 [facility], [place] [address] [email or web address] documented as of this encounter [...] documented as of this encounter Care Teams Worm Sorter Relationship Specialty Start Date End Date America Farmer NP [address] [place] [address] [email or web address] PCP - General Nurse Practitioner 06/06/23 07/28/24 Petty Almeida PA [address] [place] [address] PCP - General Physician Weighter 07/29/24 Andrez Manrique MD [address] [place] [address] [email or web address] du Advanced Heart Failure and Transplant Cardiology 08/31/22 Andrez Kahn MD [address] [place] [address] [email or web address] Consulting Provider Cardiology 08/31/22 Luca Alfaro MD [address] [place] [address] [facility] Cardiology 08/31/22 Andrez Osullivan MD [address] [place] [address] [email or web address]@[email or web address]. [facility] Pediatric Cardiology 02/05/24 documented as of this encounter Additional Source Comments The information contained in this document represents components of the legal health record. It is not the complete legal health record.[facility]
--- OUTSIDE RECORDS SUMMARY | 2024-11-18 17:27 | XMS_ITS | Encounter Summary ---
Author Organization [facility] Address 399 [facility] [address] [place] [address] Phone Care Team Providers Care Rail Bender Name Role Phone Andrez Manrique MD Unavailable [phone] Andrez Kahn MD Unavailable [phone] Luca Alfaro MD Unavailable [phone] Andrez Osullivan MD Unavailable [phone] Petty Almeida Primary Care Provide r Encounter Details Date Type Department Care Team (Late st Contact Info) Description 11/13/2024 Orders Only [facility] Cardiovascular Clinic 70 [place] [address] Cornelio Patricia MD 75 [facility] Cardiovascular Dept [place], [place] [phone] [email or web address] Social History Tobacco Use Types Packs/Day [...] high school, GED, job training, learning the Taiwanese language, technical skills, or developing parenting skills)? [...] Info) Description 11/28/2024 10:20 AM EDT Appointment [facility] Skeletal Health/Osteoporosis Ctr. and Bone Density Unit 221 [place] [address] Renetta Rosenbaum, MERCHANDISE PICKUP/RECEIVING ASSOCIATE [address] [place] [address] [email or web address] 12/09/2024 8:00 AM EDT Office Visit [facility] Cardiac Transplant 70 [place] [address] Cornelio Patricia MD 75 [facility] [place] [address] [email or web address] 12/09/2024 9:00 AM EDT Office Visit [facility] Cardiac Transplant 70 [place] [address] Natalie Estrada MD 01/27/2025 4:40 PM EST Office [facility] [address] [place] [address] Jose Hidalgo MD, MPH 75 [facility] [place] [address] [email or web address] documented as of this encounter Results * ECG 12-LEAD (11/14/2024 10:17 AM EDT) Ventricular Rate EKG/MIN 88 BPM [facility] Atrial Rate 88 BPM [facility] WA Interval 146 ms [facility] QRS Duration 72 ms [facility] QT Interval 368 ms [facility] QTC Interval 445 ms [facility] P [place] 60 degrees [facility] R Wave [place] -3 degrees [facility] T Wave [place] 26 degrees MUSE_[facility] 11/14/2024 10:1 7 AM EDT Narrative LENNY - 11/18/2024 9:23 AM EDT Normal sinus rhythm Possible Inferior myocardial infarction (cited on or before 14-Feb-2023) Abnormal ECG When compared with ECG of 22-Aug-2024 08:42, No significant change was found us Cornelio Patricia MD ECG ORDERABLES Final Resul t LENNY documented in this encounter Visit Diagnoses Not on file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 Assessment Noted Time PHQ-2 Depression Total Score: 0 02/24/20 22 4:08 PM EST documented as of this encounter Care Teams Rail Bender Relationship Specialty Start Date End Date Petty Almeida PA [address] [place] [address] Dr [address] [place] [address] PCP - General Physician Manager Photo 07/29/24 Andrez Manrique MD [address] [place] [address] [place] [address] [email or web address] u Advanced Heart Failure and Transplant Cardiology 08/31/22 Andrez Kahn MD [address] [place] [address] Consulting Provider Cardiology 08/31/22 Luca Alfaro MD [address] [place] [address] [facility] Pediatric Cardiology 08/31/22 Andrez Osullivan MD 17[address] [place] [address] [email or web address].[facility] Pediatric Cardiology 02/05/24 documented as of this encounter Additional Source Comments The information contained in this document represents components of the legal health record. It is not the complete legal health record.[facility]
--- OUTSIDE RECORDS SUMMARY | 2024-11-18 17:27 | XMS_ITS | Encounter Summary ---
Author Organization [facility] Address [address] 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 [...] Info) Description 11/28/2024 10:20 AM EDT Appointment [facility] Skeletal Health/Osteoporosis Ctr. and Bone Density Unit [address] [place] [address] Renetta Rosenbaum, STAMPING BENCH DIE MAKER 75 [place] [address] [email or web address] 12/09/2024 8:00 AM EDT Office Visit [facility] Cardiac Transplant 70 [place] [address] Cornelio Dunham MD 75 [facility] [place] [address] [email or web address] 12/09/2024 9:00 AM EDT Office Visit [facility] Cardiac Transplant 70 [place] [address] Unknown, Unknown, 01/27/2025 4:40 PM EST Office Visit [facility] Medical Specialties [address] [place] [address] Jose Hidalgo MD, MPH 75 [facility] [place] [address] [email or web address] documented as of this encounter Visit Diagnoses Diagnosis 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- Primary 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 Assessment Noted Time PHQ-2 Depression Total Score: 0 11/30/20 22 4:08 PM EST documented as of this encounter Care Teams Nail Cutter Relationship Specialty Start Date End Date Petty Almeida PA [address] [place] [address] PCP - General Physician Biofuels Manager 07/29/24 Andrez Manrique MD [address] [place] [address] [place] [address] [email or web address] u Advanced Heart Failure and Transplant Cardiology 08/31/22 Andrez Kahn MD [address] [place] [address] carole[email or web address] Consulting Provider Cardiology 08/31/22 Luca Alfaro MD [address] [place] [address] [facility] Pediatric Cardiology 08/31/22 Andrez Osullivan MD [address] [place] [address] [email or web address].[place].[facility] Pediatric Cardiology 02/05/24 documented as of this encounter Additional Source Comments The information contained in this document represents components of the legal health record. It is not the complete legal health record.[facility]
--- OUTSIDE RECORDS SUMMARY | 2024-11-18 17:27 | XMS_ITS | Encounter Summary ---
Author Organization [facility] Address [address] [facility] [address] [place] [address] Phone Care Team Providers Care 3D Technologist Name Role Phone Andrez Manrique MD Unavailable [phone] Andrez Kahn MD Unavailable [phone] Luca Alfaro MD Unavailable [phone] Andrez Osullivan MD Unavailable [phone] Petty Almeida Primary Care Provide r Encounter Details Date Type Department Care Team (Late st Contact Info) Description 08/22/2024 Procedure Pass [facility] Cardiac Transportation Project Manager [address] [place] [address] Social History Tobacco Use Types Packs/Day Years [...] high school, GED, job training, learning the Tajik language, technical skills, or developing parenting skills)? [...] Info) Description 11/28/2024 10:20 AM EDT Appointment [facility] Skeletal Health/Osteoporosis Ctr. and Bone Density Unit [address] [place] [address] Renetta Rosenbaum, MARVIN 75 [place] [address] [email or web address]. BRIGETTE 12/09/2024 8:00 AM EDT Office Visit [facility] Cardiac Transplant 70 [place] [address] Cornelio Dunham MD 75 [facility] [place] [address] [email or web address] 12/09/2024 9:00 AM EDT Office Visit [facility] Cardiac Transplant 70 [place] [address] Unknown, Natalie, 01/27/2025 4:40 PM EST Office Visit [facility] Medical Specialties [address] [address] Jose Hidalgo MD, MPH 75 [place] [address] [email or web address] documented as of this encounter Visit Diagnoses Not on file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 Assessment Noted Time PHQ-2 Depression Total Score: 0 02/24/20 22 4:08 PM EST documented as of this encounter Care Teams 3D Technologist Relationship Specialty Start Date End Date Petty Almeida PA [address] [place] [address] [place] [address] PCP - General Physician New Home Sales Consultant 07/29/24 Andrez Manrique MD [address] [place] [address] [place] [address] [email or web address] u Advanced Heart Failure and Transplant Cardiology 08/31/22 Andrez Kahn MD [address] [place] [address] [email or web address] Consulting Provider Cardiology 08/31/22 Luca Alfaro MD [address] [place] [address] [facility] Pediatric Cardiology 08/31/22 Andrez Osullivan MD [address] [place] [address] [email or web address].[place].e Pediatric Cardiology 02/05/24 documented as of this encounter Additional Source Comments The information contained in this document represents components of the legal health record. It is not the complete legal health record.[facility]
--- OUTSIDE RECORDS SUMMARY | 2024-11-18 17:27 | XMS_ITS | Encounter Summary ---
Author Organization [facility] Address [address] [facility] [address] [place] [address] Phone Care Team Providers Care Experience Designer Name Role Phone Andrez Manrique MD Unavailable Andrez Kahn MD Unavailable Luca Alfaro MD Unavailable Andrez Osullivan MD Unavailable [phone] Petty Almeida Primary Care Provide r Encounter Details Date Type Department Care Team (Late st Contact Info) Description 11/13/2024 Telephone [facility] Cardiac Transplant 70 [place] [address] Renetta Rosenbaum, CHIEF CONCIERGE 75 [place] [address] [email or web address] Social History Tobacco Use Types Packs/Day Years [...] high school, GED, job training, learning the Ecuadorean language, technical skills, or developing parenting skills)? [...] as of this encounter Progress Notes * Octavia Fontanez - 11/13/2024 4:09 PM EDT The patient was contacted via phone call to discuss upcoming appointments Office contact information was provided: Y Patient [place] message sent: N documented in this encounter Plan of Treatment Upcoming Encounters Date Type Department Care Team ([facility] st Contact Info) Description 11/28/2024 10:20 AM EDT Appointment [facility] Skeletal Health/Osteoporosis Ctr. and Bone Density Unit [address] [place] [address] Renetta Rosenbaum, MARVIN [address] [place] [address] [email or web address]. BRIGETTE 12/09/2024 8:00 AM EDT Office Visit [facility] Cardiac Transplant [address] [place] [address] Cornelio Dunham MD [address] [place] [address] [place] [address] [email or web address] 12/09/2024 9:00 AM EDT Office Visit [facility] Cardiac Transplant 70 [place] [address] Unknown, Natalie, 01/27/2025 4:40 PM EST Office Visit [facility] Medical Specialties 45 [facility]2 [place] [address] Jose Hidalgo MD, MPH 75 [facility] [place] [address] 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 u Advanced Heart Failure and Transplant Cardiology 08/31/22 Andrez Kahn MD [address] [place] [address] [email or web address] Consulting Provider Cardiology 08/31/22 Luca Alfaro MD [address] [place] [address] health system@[facility] Pediatric Cardiology 08/31/22 Andrez Osullivan MD [address] [place] [address] [email or web address].[email or web address].e du Pediatric Cardiology 02/05/24 documented as of this encounter Additional Source Comments The information contained in this document represents components of the legal health record. It is not the complete legal health record.[facility]
--- OUTSIDE RECORDS SUMMARY | 2024-11-18 17:27 | XMS_ITS | Encounter Summary ---
Author Organization [facility] Address [address] [facility] [address] [place] [address] Phone Care Team Providers Care Assembly And Packing Supervisor Name Role Phone Andrez Manrique MD Unavailable Andrez Kahn MD Unavailable Luca Alfaro MD Unavailable [phone] Andrez Osullivan MD Unavailable [phone] Petty Almeida Primary Care Provide r Encounter Details Date Type Department Care Team (Late st Contact Info) Description 08/30/2024 Procedure Pass [facility] Echocardiography [address] [place] [address] Social History Tobacco Use Types Packs/Day Years [...] high school, GED, job training, learning the Indian language, technical skills, or developing parenting skills)? [...] Health/Osteoporosis Ctr. and Bone Density Unit [address] [place] [address] Renetta Rosenbaum, MARVIN [address] [place] [address] [email or web address] 12/09/2024 8:00 AM EDT Office Visit [facility] Cardiac Transplant [address] [place] [address] Cornelio Dunham MD [address] [facility] [place] [address] [email or web address] 12/09/2024 9:00 AM EDT Office Visit 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 Assessment Noted Time PHQ-2 Depression Total Score: 0 02/24/20 4:08 PM EST documented as of this encounter Care Teams Assembly And Packing Supervisor Relationship Specialty Start Date End Date Petty Almeida PA [address] [place] [address] [place] [address] PCP - General Physician Chromosomal Disorders Counselor 07/29/24 Andrez Manrique MD [address] [place] [address] [place] [address] [email or web address] Advanced Heart Failure and Transplant Cardiology 08/31/22 Andrez Kahn MD [address] [place] [address] [email or web address] Consulting Provider Cardiology 08/31/22 Luca Alfaro MD [address] [place] [address] [email or web address] Pediatric Cardiology 08/31/22 Andrez Osullivan MD [address] [place] [address] [email or web address] Pediatric Cardiology 02/05/24 documented as of this encounter Additional Source Comments The information contained in this document represents components of the legal health record. It is not the complete legal health record.[facility]
--- OUTSIDE RECORDS SUMMARY | 2024-11-18 17:27 | XMS_ITS | Encounter Summary ---
Author Organization [facility] Address [address] [facility] [address] [place] [address] Phone Care Team Providers Care Pool Nurse Name Role Phone Andrez Manrique MD Unavailable [phone] Andrez Kahn MD Unavailable [phone] Luca Alfaro MD Unavailable [phone] Andrez Osullivan MD Unavailable [phone] Petty Almeida Primary Care Provide r Encounter Details Date Type Department Care Team (Late st Contact Info) Description 11/13/2024 Orders Only [facility] Cardiac Transplant [address] [place] [address] Cintia Serra, MAX [address] [place] [address] 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 [...] Info) Description 11/28/2024 10:20 AM EDT Appointment [facility] Skeletal Health/Osteoporosis Ctr. and Bone Density Unit [address] [place] [address] Renetta Rosenbaum, NEWSPAPER DELIVERY COUNSELOR [address] [place] [address] [email or web address] 12/09/2024 8:00 AM EDT Office Visit [facility] Cardiac Transplant [address] [place] [address] Cornelio Dunham MD 75 [facility] [place] [address] [email or web address] 12/09/2024 9:00 AM EDT Office Visit [facility] Cardiac Transplant [address] [place] [address] Natalie Estrada MD 01/27/2025 4:40 PM EST Office Visit [facility] [address] [address] [place] [address] Jose Hidalgo MD, MPH [address] [facility] [place] [address] [email or web address] documented as of this encounter Results * HLA Class 2 Single Ag Antibody ID (3000) (11/14/2024 1:05 PM EDT) [email or web address] Ab ID 3000 SEE TISSUE TYPING RPT IN EPIC UNDER CHART REVIEW-LAB [facility] 11/14/2024 1:05 PM EDT 11/14/2024 2:12 PM EDT us Cornelio Dunham MD LAB BLOOD ORDERABLES Final Result [facility] [address] [place] [address] * HLA Class 1 Single Ag Antibody ID (3000) (11/14/2024 1:05 PM EDT) [id number] Ab ID 3001 SEE TISSUE TYPING RPT IN EPIC UNDER CHART REVIEW-LAB [facility] 11/14/2024 1:05 PM EDT 11/14/2024 2:12 PM EDT Cornelio Dunham MD LAB BLOOD ORDERABLES Final Result Performing Organization Address City/[facility] Co de Phone Number [facility] [address] [place] [address] documented in this encounter Visit Diagnoses Diagnosis 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- Primary 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 u Advanced Heart Failure and Transplant Cardiology 08/31/22 Andrez Kahn MD [address] [place] [address] Consulting Provider Cardiology 08/31/22 Luca Alfaro MD [address] [place] [address] [email or web address] Pediatric Cardiology 08/31/22 Andrez Osullivan MD [address] [place] [address] [email or web address] Pediatric Cardiology 02/05/24 documented as of this encounter Additional Source Comments The information contained in this document represents components of the legal health record. It is not the complete legal health record.[facility]
--- OUTSIDE RECORDS SUMMARY | 2024-11-18 17:27 | XMS_ITS | Encounter Summary ---
Author Organization [facility] Address [address] [facility] [address] [place] [address] Phone Care Team Providers Care Import/Export Analyst Name Role Phone Andrez Manrique MD Unavailable Andrez Kahn MD Unavailable Luca Alfaro MD Unavailable [phone] Andrez Osullivan MD Unavailable [phone] Petty Almeida Primary Care Provide r Encounter Details Date Type Department Care Team (Late st Contact Info) Description 11/13/[address] 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 [...] as of this encounter Progress Notes * Kathya Seymour RN - 11/13/2024 1:17 PM EDTAddended by: KATHYA SEYMOUR on: 11/14/2024 10:57 AM Modules accepted: Orders documented in this encounter Plan of Treatment Upcoming Encounters Date Type Department Care Team (Late st Contact Info) Description 11/28/2024 10:[address] [facility] Skeletal Health/Osteoporosis Ctr. and Bone Density Unit [address] [place] [address] Renetta Rosenbaum, LIBRARIAN SPECIALIST [address] [place] [address] [email or web address] 12/09/2024 8:00 AM EDT Office Visit [facility] Cardiac Transplant [address] [place] [address] Cornelio Dunham MD [address] [place] [address] [place] [address] [email or web address] 12/09/2024 9:00 AM EDT Office Visit [facility] Cardiac Transplant [address] [place] [address] Natalie Estrada MD 01/27/2025 4:40 PM EST Office Visit [facility] Medical Specialties [address] [phone] [place] [address] Jose Hidalgo MD, MPH [address] [facility] [place] [address] [email or web address] documented as of this encounter Results * (ABNORMAL) Urinalysis (11/14/2024 1:05 PM EDT) COLOR LT YELLOW(A) Yellow [facility] CLARITY Clear Clear [facility] GLUCOSE Negative Negative [facility] BILI Negative Negative [facility] KETONES Negative Negative [facility] SPECIFIC GRAVITY 1.018 1.003 - 1.035 [facility] BLOOD Negative Negative [facility] PH 5.5 4.5 - 8.0 [facility] Protein-UA Negative Negative [facility] UROBILINOGEN Negative Negative [facility] CLI NICAL LAB[facility]ATORIES NITRITE Negative Negative [facility] Leukocyte esterase, ur Negative Negative [facility] Urine 11/14/2024 1:05 PM EDT 11/14/2024 2:11 PM EDT Cornelio Dunham MD URINE ORDERABLES Final Resu lt Performing Organization Address [facility] de Phone Number [address] [address] * Toxicology screen, urine (11/14/2024 1:05 PM EDT) URINE AMPHETAMINES G HARSHAD WAS NOTIFIED, SAMPLE CONTAMINATED Negative [facility] URINE BENZODIAZEPINE G HARSHAD WAS NOTIFIED, SAMPLE CONTAMINATED Negative [facility] URINE COCAINE METAB G HARSHAD WAS NOTIFIED, SAMPLE CONTAMINATED Negative [facility] URINE OPIATES G HARSHAD WAS NOTIFIED, SAMPLE CONTAMINATED Negative [facility] URINE OXYCODONE G HARSHAD WAS NOTIFIED, SAMPLE CONTAMINATED Negative [facility] Fentanyl, urine G HARSHAD WAS NOTIFIED, SAMPLE CONTAMINATED Negative [facility] CREAT G HARSHAD WAS NOTIFIED, SAMPLE CONTAMINATED 20.0 - 300.0 mg/dL [facility] Urine 11/14/2024 1:05 PM EDT 11/14/2024 2:11 PM EDT Cornelio Dunham MD URINE ORDERABLES Final Resu lt Performing Organization Address [facility] de Phone Number [address] [address] * (ABNORMAL) Parathyroid hormone (PTH) (11/14/2024 1:05 PM EDT) PARATHYROID HORMONE 145(H) 15 - 65 pg/mL [facility] 11/14/2024 1:05 PM EDT 11/14/2024 2:11 PM EDT Cornelio Dunham MD LAB BLOOD ORDERABLES Final Result Performing Organization Address [facility] de Phone Number [address] [address] * (ABNORMAL) NT-proBNP (11/14/2024 1:05 PM EDT) Pathologist [facility] NT-PROBNP 1,000(H) <450 pg/mL [facility] Comment: 11/14/2024 1:05 PM EDT 11/14/2024 2:[address] [facility] Cornelio Dunham MD LAB BLOOD ORDERABLES Final Result Performing Organization Address [facility] de Phone Number [address] [address] * Nicotine and metabolites, random urine (11/14/2024 1:05 PM EDT) Pathologist [facility] UR NICOTINE G HARSHAD WAS NOTIFIED, SAMPLE CONTAMINATED ng/mL [facility] UR COTININE G HARSHAD WAS NOTIFIED, SAMPLE CONTAMINATED ng/mL [facility] UR NORNICOTINE G HARSHAD WAS NOTIFIED, SAMPLE CONTAMINATED ng/mL [facility] UR ANABASINE G HARSHAD WAS NOTIFIED, SAMPLE CONTAMINATED ng/mL [facility] Urine 11/14/2024 1:05 PM EDT 11/14/2024 2:11 PM EDT Result [facility] us Cornelio Dunham MD URINE ORDERABLES Final Resu lt Performing Organization Address [facility] de Phone Number [address] [address] * Magnesium (11/14/2024 1:05 PM EDT) Pathologist [facility] MAGNESIUM 1.7 1.7 - 2.6 mg/dL [facility] 11/14/2024 1:05 PM EDT 11/14/2024 2:11 PM EDT Cornelio Dunham MD LAB BLOOD ORDERABLES Final Result Performing Organization Address [facility] Co de Phone Number [facility] [address] [place] [address] * (ABNORMAL) Lipid panel (11/14/2024 1:05 PM EDT) CHOLESTEROL 181 <200 mg/dL [facility] TRIGLYCERIDES 99 35 - 150 mg/dL [facility] HDL 89(H) 40 - 80 mg/dL [facility] CALCULATED LDL 72 50 - 129 mg/dL [facility] VLDL 20 <31 mg/dL [facility] CARDIAC RISK RATIO 2.0 0.0 - 4.0 [facility] 11/14/2024 1:05 PM EDT 11/14/2024 2:11 PM EDT Cornelio Dunham MD LAB BLOOD ORDERABLES Final Result Performing Organization Address [facility] de Phone Number [facility] [address] [place] [address] * Hemoglobin A1c (11/14/2024 1:05 PM EDT) Pathologist [facility] HEMOGLOBIN A1C 4.9 4.2 - 5.6 % [facility] Comment: HbA1c levels 5.7-6.4% represent pre-diabetes, indicating impaired glucose control and an increased risk of developing diabetes. The diagnostic HbA1c level for diabetes is 6.5% or greater. HbA1c is performed by the Garry Ayah-quant immunoassay method which does not detect (incidental) hemoglobin variants. Hemoglobin electrophoresis should be ordered in patients with suspected hemoglobinopathies. CALC MEAN BLD GLUC 94 mg/dL [facility] Comment:The Calculated Mean Blood Glucose (CMBG) represents the estimated average glucose calculated from the measured hemoglobin A1c (HbA1c). There is no established normal range for the CMBG, however a 5.6% HbA1c (upper limit of normal) represents a CMBG of 114 mg/dL. 11/14/2024 1:05 PM EDT 11/14/2024 2:11 PM EDT Cornelio Dunham MD LAB BLOOD ORDERABLES Final Result Performing Organization Address [facility] Co de Phone Number [facility] [address] [place] [address] * Ginger-Machado virus (EBV) PCR, blood (11/14/2024 1:05 PM EDT) Pathologist [facility] EBV Blood, PCR Undetected Undetected IU/mL [facility] Comment: (NOTE) Result in log IU/mL is Undetected. ADDITIONAL INFORMATION The quantification range of this assay is 35 to 100,000,000 IU/mL (1.54 log to 8.00 log IU/mL). Testing was performed using the dillon EBV test ([employer] Blood 11/14/2024 1:05 PM EDT 11/14/2024 2:13 PM EDT Cornelio Dunham MD NON CULTURE MICROBIOLOGY Fi nal Result Performing Organization Address [facility] de Phone Number [facility] [address] [place] [address] * (ABNORMAL) Cystatin C (11/14/2024 1:05 PM EDT) Pathologist [facility] Cystatin C 1.62(H) 0.61 - 0.95 mg/L [facility] eGFR (Cystatin C) 41(L) >59 mL/min/1. 73m2 [facility] Comment: Cystatin C-based eGFR may differ substantially from creatinine-based eGFR in patients with abnormal muscle mass or acutely changing renal function. Please interpret together with relevant clinical features. 11/14/2024 1:05 PM EDT 11/14/2024 2:11 PM EDT us Cornelio Dunham MD LAB BLOOD ORDERABLES Final Result Performing Organization Address [facility]/ZIP Co de Phone Number [facility] [address] [place] [address] * (ABNORMAL) Comprehensive metabolic panel (11/14/2024 1:05 PM EDT) SODIUM 139 136 - 145 mmol/L [facility] POTASSIUM 4.3 3.4 - 5.1 mmol/L [facility] CHLORIDE 104 98 - 107 mmol/L [facility] CO2 20(L) 22 - 31 mmol/L [facility] BUN 33(H) 6 - 23 mg/dL [facility] CREATININE 1.25(H) 0.50 - 1.20 mg/dL [facility] GLUCOSE 122(H) 70 - 100 mg/dL [facility] ALBUMIN 4.3 3.5 - 5.2 g/dL [facility] TOTAL PROTEIN 7.4 6.4 - 8.3 g/dL [facility] CALCIUM 9.1 8.8 - 10.7 mg/dL [facility] ALKALINE PHOSPHATASE 114 35 - 130 U/L [facility] TOTAL BILIRUBIN 0.3 0.0 - 1.0 mg/dL [facility] AST 24 10 - 50 U/L [facility] ALT 21 10 - 50 U/L [facility] GLOBULIN 3.1 2.2 - 4.2 g/dL [facility] EGFR 55(L) >59 mL/min/1. 73m2 [facility] Comment:Estimated glomerular filtration rate calculated using the CKD-EPI refit equation. ANION GAP 15 7 - 17 mmol/L [facility] 11/14/2024 1:0 5 PM EDT 11/14/2024 2:11 PM EDT us Cornelio Dunham MD LAB BLOOD ORDERABLES Final Result [facility] [address] [place] [address] * (ABNORMAL) CBC and differential (11/14/2024 1:05 PM EDT) WBC 9.78 4.00 - 11.00 K/uL [facility] RBC 4.26 4.00 - 5.20 M/uL [facility] HGB 12.1 12.0 - 16.0 g/dL [facility] HCT 38.1 36.0 - 46.0 % [facility] PLT 260 150 - 450 K/uL [facility] MCV 89.4 80.0 - 100.0 fL [facility] MCH 28.4 27.0 - 31.0 pg [facility] MCHC 31.8(L) 32.0 - 36.0 g/dL [facility] RDW 13.0 11.5 - 14.5 % [facility] MPV 9.8 8.4 - 12.0 fL [facility] NRBC 0.00 0.00 /100 WBCs [facility] ABSOLUTE NRBC 0.00 0.00 K/uL [facility] CL [facility] DIFF METHOD Auto [facility] CLIN ICAL LAB[facility] NEUTS 89.5(H) 48.0 - 76.0 % [facility] LYMPHS 3.7(L) 18.0 - 41.0 % [facility] MONOS 5.1 4.0 - 11.0 % [facility] EOS 0.2 0.0 - 5.0 % [facility] BASOS 0.4 0.0 - 1.5 % [facility] % IMMATURE GRANS 1.1(H) 0.0 - 0.9 % [facility] ABSOLUTE NEUTS 8.75(H) 1.92 - 7.60 K/uL [facility] Comment:1.21-5.39 cells/KL i s the reference range for individuals with the Oconnell null phenotype ABSOLUTE LYMPHS 0.36(L) 0.72 - 4.10 K/uL [facility] ABSOLUTE MONOS 0.50 0.16 - 1.10 K/uL [facility] ABSOLUTE EOS 0.02 0.00 - 0.50 K/uL [facility] ABSOLUTE BASOS 0.04 0.00 - 0.15 K/uL [facility] ABS IMMATURE GRANS 0.11(H) 0.00 - 0.09 K/uL [facility] ABSOLUTE NEUTROPHIL COUNT 8.75(H) 1.92 - 7.60 K/uL [facility] Comment: Automated cell count. Manual ANC may differ if performed. 1.21-5.39 cells/KL is the reference range for individuals with the Oconnell null phenotype Blood 11/14/2024 1:05 PM EDT 11/14/2024 2:11 PM EDT Cornelio Dunham MD LAB BLOOD ORDERABLES Final Result Performing Organization Address City/[facility]/ZIP Co de Phone Number [facility] [address] [place] [address] * 25-OH vitamin D (11/14/2024 1:05 PM EDT) 25 OH VIT D (TOTAL) 21 20 - 50 ng/mL [facility] 11/14/2024 1:05 PM EDT 11/14/2024 2:11 PM EDT Cornelio Dunham MD LAB BLOOD ORDERABLES Final Result Performing Organization Address [facility] de Phone Number 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 Consulting Provider Cardiology 08/31/22 Luca Alfaro MD [address] [place] [address] [email or web address] Pediatric Cardiology 08/31/22 Andrez Osullivan MD [address] [place] [address] [email or web address] Pediatric Cardiology 02/05/24 documented as of this encounter Additional Source Comments The information contained in this document represents components of the legal health record. It is not the complete legal health record.[facility]
--- OUTSIDE RECORDS SUMMARY | 2024-11-18 17:28 | XMS_ITS | Encounter Summary ---
Author Organization [facility] Address [address] [facility] [address] [place] [address] Phone Care Team Providers Care Brand Coordinator Name Role Phone Andrez Manrique MD Unavailable [phone] Andrez Kahn MD Unavailable [phone] Luca Alfaro MD Unavailable America Farmer HAND I THERMAL CUTTER Primary Care Provider Andrez Osullivan MD Unavailable [phone] Petty Almeida PA Primary Care Provide r Encounter Details Date Type Department Care Team (Late st Contact Info) Description 02/08/2024 Procedure Pass [facility] Cross Sectional Interventional Radiology [address] [place] [phone] Social History Tobacco Use Types Packs/Day Years [...] got money to buy more. Never True 02/06/2024 Within the past 6 months the food we bought just didn't last and we didn't have enough money to get more. Never True Residential Stability Answer Date Recor ded What is your housing situation today? I have adama dasilva 02/06/2024 How many times have you moved in the past 12 mon ths? One time 02/06/2024 Paying for Meds Answer Date Recorded Do you have trouble paying for medicines? No 02/06/2024 Paying Utility Bills Answer Date Record ed Do you have trouble paying your heating or elect ricity bill? No 02/06/2024 Transportation Answer Date Recorded Has the lack of transportati on kept you from medical appointments or from getting medications? No 02/06/2024 Digital Access Answer Date Recorded No 02/06/2024 Yes 02/06/2024 Do you have reliable internet access at home? Ye s 02/06/2024 Do you have a device (e.g., phone, tablet, computer) with a working camera? Yes 02/06/2024 Intimate Partner Violence Answer Date R ecorded [...] Info) Description 11/28/2024 10:20 AM EDT Appointment [facility] Skeletal Health/Osteoporosis Ctr. and Bone Density Unit [address] [place] [address] Renetta Rosenbaum, CAPABILITY LEAD [address] [place] [address] [email or web address] 12/09/2024 8:00 AM EDT Office Visit [facility] Cardiac Transplant [address] [place] [address] Cornelio Dunham MD [address] [facility] [place] [address] [email or web address] 12/09/2024 9:00 AM EDT Office Visit [facility] Cardiac Transplant [address] [place] [address] Natalie Estrada MD 01/27/2025 4:40 PM EST Office Visit [facility] [address] [address] Jose Hidalgo MD, MPH [address] [place] [address] [email or web address] documented as of this [...] documented as of this encounter Care Teams Brand Coordinator Relationship Specialty Start Date End Date America Farmer NP [address] [place] [phone] [email or web address] PCP - General Nurse Practitioner 06/06/23 07/28/24 Petty Almeida PA [address] [place] [phone] PCP - General Physician Cold Header Operator 07/29/24 Andrez Manrique MD [address] [place] [address] [place] [address] [email or web address] Heart Failure and Transplant Cardiology 08/31/22 Andrez Kahn MD [address] [place] [address] [email or web address] Consulting Provider Cardiology 08/31/22 Luca Alfaro MD [address] [place] [address] [email or web address] Pediatric Cardiology 08/31/22 Andrez Ousllivan MD [address] [place] [address] [email or web address] Pediatric Cardiology 02/05/24 documented as of this encounter Additional Source Comments The information contained in this document represents components of the legal health record. It is not the complete legal health record.[facility]
--- OUTSIDE RECORDS SUMMARY | 2024-11-18 17:28 | XMS_ITS | Encounter Summary ---
Author Organization [facility] Address [address] [facility] [address] [place] [address] Phone Care Team Providers Care Staying Machine Operator Name Role Phone Andrez Manrique MD Unavailable Andrez Kahn MD Unavailable [phone] Luca Alfaro MD Unavailable [phone] America Farmer ERP PROJECT MANAGER Primary Care Provider Andrez Osullivan MD Unavailable [phone] Petty Almeida PA Primary Care Provide r Encounter Details Date Type Department Care Team (Late st Contact Info) Description 02/18/2024 Procedure Pass [facility] Radiology [address] [place] [address] Social History Tobacco Use Types Packs/Day Years [...] Info) Description 11/28/2024 10:20 AM EDT Appointment [facility] Skeletal Health/Osteoporosis Ctr. and Bone Density Unit 221 [place] [address] Renetta Rosenbaum, NOODLE MAKER 75 [place] [address] [email or web address] BRIGETTE 12/09/2024 8:00 AM EDT Office Visit [facility] Cardiac Transplant [address] [place] [address] Cornelio Dunham MD 75 [facility] [place] [address] [email or web address] 12/09/2024 9:00 AM EDT Office Visit [facility] Cardiac Transplant [address] [place] [address] Natalie Estrada MD 01/27/2025 4:40 PM EST Office [facility] [address] [address] [place] [address] Jose Hidalgo MD, MPH 75 [place] [address] [email or web address] documented as of this encounter Visit Diagnoses [...] documented as of this encounter Care Teams Staying Machine Operator Relationship Specialty Start Date End Date America Farmer NP [address] [place] [address] [email or web address] PCP - General Nurse Practitioner 06/06/23 07/28/24 Petty Almeida PA [address] [place] [address] [facility] [[email or web address] [place] [address] PCP - General Physician Plate Slitter And Inspector 07/29/24 Andrez Manrique MD [address] [place] [address] [place] [address] [email or web address] du Advanced Heart Failure and Transplant Cardiology 08/31/22 Andrez Kahn MD [address] [place] [address] [email or web address] Consulting Provider Cardiology 08/31/22 Luca Alfaro MD [address] [place] [address] [email or web address] Pediatric Cardiology 08/31/22 Andrez Osullivan MD [address] [place] [address] GINNY@[facility].[place]. [facility] Pediatric Cardiology 02/05/24 documented as of this encounter Additional Source Comments The information contained in this document represents components of the legal health record. It is not the complete legal health record.[facility]
--- OUTSIDE RECORDS SUMMARY | 2024-11-18 17:28 | XMS_ITS | Encounter Summary ---
Author Organization [facility] Address [address] [facility] [address] [place] [address] Phone Care Team Providers Care Tank Hoop Bender Name Role Phone Andrez Manrique MD Unavailable Andrez Kahn MD Unavailable Luca Alfaro MD Unavailable [phone] Andrez Osullivan MD Unavailable [phone] Petty Almeida Primary Care Provide r Reason for Visit * Reason Onset Date Comments Appointment 11/18/2024 Encounter Details Date Type Department Care Team (Late st Contact Info) Description 11/18/2024 Telephone [facility] Cardiac Transplant 70 [place] [address] Yessenia Schmitt CNP 75 [place] [address] [email or web address] u Appointment Social History Tobacco Use Types Packs/Day Years [...] high school, GED, job training, learning the [place] language, technical skills, or developing parenting [...] as of this encounter Progress Notes * Amairani Mccarthy - 11/18/2024 4:56 PM EDT The patient was contacted via phone call to discuss upcoming appointments, confirmed appts on 12/09 with patient. Office contact information was provided: N Patient [place] message sent: N documented in this encounter Plan of Treatment Upcoming Encounters Date Type Department Care Team (Late st Contact Info) Description 11/28/2024 10:20 AM EDT Appointment [facility] Skeletal Health/Osteoporosis Ctr. and Bone Density Unit 221 [place] [address] Renetta Rosenbaum, SPRING CLIPPER 75 [place] [address] [email or web address]. [place]TE 12/09/2024 8:00 AM EDT Office Visit [facility] Cardiac Transplant 70 [place] [address] Cornelio Dunham MD [address] [facility] [place] [address] 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 Consulting Provider Cardiology 08/31/22 Luca Alfaro MD [address] [place] [address] [email or web address] Pediatric Cardiology 08/31/22 Andrez Osullivan MD [address] [place] [address] [email or web address]. du Pediatric Cardiology 02/05/24 documented as of this encounter Additional Source Comments The information contained in this document represents components of the legal health record. It is not the complete legal health record.[facility]
--- OUTSIDE RECORDS SUMMARY | 2024-11-18 17:28 | XMS_ITS | Encounter Summary ---
Author Organization [facility] Address [address] [facility] [address] [place] [address] Phone Care Team Providers Care Tool And Fixture Repairer Name Role Phone Andrez Manrique MD Unavailable Andrez Kahn MD Unavailable Luca Alfaro MD Unavailable [phone] America Farmer GREETING CARD MAKER Primary Care Provider Andrez Osullivan MD Unavailable [phone] Petty Almeida PA Primary Care Provide r Encounter Details Date Type Department Care Team (Late st Contact Info) Description 02/05/2024 Procedure Pass [facility] and Women's Radiology 70 [place] [address] Social History Tobacco Use Types Packs/Day Years [...] Health/Osteoporosis Ctr. and Bone Density Unit 221 [place] [address] Renetat Rosenbaum, PROJECT PRODUCTION ENGINEER 75 [place] [address] SPIKE@[facility] [place] 12/09/2024 8:00 AM EDT Office Visit [facility] Cardiac Transplant 70 [place] [address] Cornelio Dunham MD 75 [facility] [place] [address] [email or web address] 12/09/2024 9:00 AM EDT Office Visit [facility] Cardiac Transplant 70 [place] [address] Natalie Estrada MD 01/27/2025 4:40 PM EST Office [facility] [address] [address] [place] [address] Jose Hidalgo MD, MPH 75 [place] [address] [email or web address] documented as of [...] documented as of this encounter Care Teams Tool And Fixture Repairer Relationship Specialty Start Date End Date America Farmer NP [address] [place] [address] [email or web address] PCP - General Nurse Practitioner 06/06/23 07/28/24 Petty Almeida PA [address] [place] [address] [facility] [address] PCP - General Physician Machinist Helper 07/29/24 Andrez Manrique MD [address] [place] [address] [place] [address] [email or web address]. du Advanced Heart Failure and Transplant Cardiology 08/31/22 Andrez Kahn MD [address] [place] [address] [email or web address] Consulting Provider Cardiology 08/31/22 Luca Alfaro MD [address] [place] [address] [email or web address] Pediatric Cardiology 08/31/22 Andrez Osullivan MD [address] [place] [address] GINNY@[email or web address]. [facility] Pediatric Cardiology 02/05/24 documented as of this encounter Additional Source Comments The information contained in this document represents components of the legal health record. It is not the complete legal health record.[facility]
--- OUTSIDE RECORDS SUMMARY | 2024-11-18 17:28 | XMS_ITS | Encounter Summary ---
Author Organization [facility] Address [address] [facility] [address] [place] [address] Phone Care Team Providers Care Head Of Insight Name Role Phone Andrez Manrique MD Unavailable Andrez Kahn MD Unavailable Luca Alfaro MD Unavailable Andrez Osullivan MD Unavailable [phone] Petty Almeida Primary Care Provide r Encounter Details Date Type Department Care Team (Late st Contact Info) Description 11/18/2024 Orders Only [facility] Tissue Type [address] [place] [address] Cornelio Dunham MD 75 [facility] [place] [address] [email or web address]. du Social History Tobacco Use Types Packs/Day Years [...] high school, GED, job training, learning the Sudanese language, technical skills, or developing parenting skills)? [...] Health/Osteoporosis Ctr. and Bone Density Unit 221 [place] [address] Renetta Rosenbaum, SEARCH MARKETING SPECIALIST 75 [place] [address] [email or web address]. [place] 12/09/2024 8:00 AM EDT Office Visit [facility] Cardiac Transplant 70 [place] [address] Cornelio Dunham MD 75 [facility] [place] [address] [email or web address] 12/09/2024 9:00 AM EDT Office Visit [facility] Cardiac Transplant 70 [place] [address] Natalie Estrada MD 01/27/2025 4:40 PM EST Office Visit [facility] Specialties [address] [address] [place] [address] Jose Hidalgo MD, MPH 75 [facility] [place] [address] [email or web address] documented as of this encounter Procedures Procedure Name Priority Date/Time Associated Diagnosis Comments TISSUE TYPING - RECIPIENT/DONOR INFORMATION AND RESULTS Routine 11/14/2024 documented in this encounter Results * Tissue Typing - Recipient/Donor Information and Results (11/14/2024) Result - External See Scanned Results 11/14/2024 us Cornelio Dunham MD LAB BLOOD ORDERABLES Edited Result - Final documented in this encounter Visit Diagnoses Not on file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 Assessment Noted Time PHQ-2 Depression Total Score: 0 02/24/20 22 4:08 PM EST documented as of this encounter Care Teams Head Of Insight Relationship Specialty Start Date End Date Petty Almeida PA [address] [place] [address] PCP - General Physician Jewelry Sorter 07/29/24 Andrez Manrique MD [address] [place] [address] [email or web address] u Advanced Heart Failure and Transplant Cardiology 08/31/22 Andrez Kahn MD [address] [place] [address] [email or web address] Consulting Provider Cardiology 08/31/22 Luca Alfaro MD [address] [place] [address] [email or web address] Pediatric Cardiology 08/31/22 Andrez Osullivan MD [address] [place] [address] GINNY@[email or web address]. du Pediatric Cardiology 02/05/24 documented as of this encounter Additional Source Comments The information contained in this document represents components of the legal health record. It is not the complete legal health record.[facility]
--- OUTSIDE RECORDS SUMMARY | 2024-11-18 17:28 | XMS_ITS | Encounter Summary ---
Author Organization [facility] Address [address] [facility] [address] [place] [address] Phone Care Team Providers Care Baggage Security Checker Name Role Phone Andrez Manrique MD Unavailable [phone] Andrez Kahn MD Unavailable [phone] Luca Alfaro MD Unavailable Andrez Osullivan MD Unavailable Petty Almeida Primary Care Provide r Reason for Visit * Reason Onset Date Comments Cardiac Transplant Office Visit RN Follow Up Rahul l 11/15/2024 Encounter Details Date Type Department Care Team (Late st Contact Info) Description 11/15/2024 Telephone [facility] Cardiac Transplant 70 [place] [address] Kathya Celaya RN [address] [place] [address] [email or web address] Cardiac Transplant Office Visit RN Follow Up Call Social History Tobacco Use Types Packs/Day Years [...] Info) Description 11/28/2024 10:20 AM EDT Appointment [facility] Skeletal Health/Osteoporosis Ctr. and Bone Density Unit 221 [place] [address] Renetta Rosenbaum, MARVIN [address] [place] [address] [email or web address] [place] 12/09/2024 8:00 AM EDT Office Visit [facility] Cardiac Transplant 70 [place] [address] Cornelio Dunham MD [address] [place] [address] [place] [address] [email or web address] 12/09/2024 9:00 AM EDT Office Visit [facility] Cardiac Transplant 70 [place] [address] Natalie, MD Natalie 01/27/2025 4:40 PM EST Office Visit [facility] Medical Specialties [address] 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 u Advanced Heart Failure and Transplant Cardiology 08/31/22 Andrez Kahn MD [address] [place] [address] [email or web address] Consulting Provider Cardiology 08/31/22 Luca Alfaro MD [address] [place] [address] [email or web address] Pediatric Cardiology 08/31/22 Andrez Osullivan MD [address] [place] [address] [email or web address] Pediatric Cardiology 02/05/24 documented as of this encounter Additional Source Comments The information contained in this document represents components of the legal health record. It is not the complete legal health record.[facility]
--- OUTSIDE RECORDS SUMMARY | 2024-11-18 17:28 | XMS_ITS | Encounter Summary ---
Author Organization [facility] Address [address] [facility] [address] [place] [address] Phone Care Team Providers Care Maxillofacial Prosthodontist Name Role Phone Andrez Manrique MD Unavailable [phone] Andrez Kahn MD Unavailable Luca Alfaro MD Unavailable [phone] America Farmer MAKE UP WORKER Primary Care Provider Andrez Osullivan MD Unavailable [phone] Petty Almeida PA Primary Care Provide r Encounter Details Date Type Department Care Team (Late st Contact Info) Description 02/17/2024 Procedure Pass [facility] Echocardiography 70 [place] [address] Social History Tobacco Use Types Packs/Day Years [...] Info) Description 11/28/2024 10:20 AM EDT Appointment [facility] Skeletal Health/Osteoporosis Ctr. and Bone Density Unit 221 [place] [address] Renetta Rosenbaum, MARKETING AND PROMOTIONS MANAGER 75 [place] [address] SPIKE@[facility] BRIGETTE 12/09/2024 8:00 AM EDT Office Visit [facility] Cardiac Transplant 70 [place] [address] Cornelio Dunham MD 75 [facility] [place] [address] [email or web address] 12/09/2024 9:00 AM EDT Office Visit [facility] Cardiac Transplant 70 [place] [address] Natalie, MD Natalie 01/27/2025 4:40 PM EST Office Visit [facility] [address] [address] Jose Hidalgo MD, MPH 75 [place] [address] [email or web address]@[email or web address] documented as of this encounter Visit [...] documented as of this encounter Care Teams Maxillofacial Prosthodontist Relationship Specialty Start Date End Date America Farmer NP [address] [place] [address] [email or web address] PCP - General Nurse Practitioner 06/06/23 07/28/24 Petty Almeida PA [address] [place] [address] PCP - General Physician Gaming Surveillance Observer 07/29/24 Andrez Manrique MD [address] [place] [address] [place] [address] [email or web address]. du Advanced Heart Failure and Transplant Cardiology 08/31/22 Andrez Kahn MD [address] [place] [address] [email or web address] Consulting Provider Cardiology 08/31/22 Luca Alfaro MD [address] [place] [address] [email or web address] Pediatric Cardiology 08/31/22 Andrez Osullivan MD [address] [place] [address] [email or web address].[place]. [facility] Pediatric Cardiology 02/05/24 documented as of this encounter Additional Source Comments The information contained in this document represents components of the legal health record. It is not the complete legal health record.[facility]
--- OUTSIDE RECORDS SUMMARY | 2024-11-18 17:28 | XMS_ITS | Encounter Summary ---
Author Organization [facility] Address [address] [facility] [address] [place] [address] Phone Care Team Providers Care Hand Counter Name Role Phone Andrez Manrique MD Unavailable [phone] Andrez Kahn MD Unavailable [phone] Luca Alfaro MD Unavailable [phone] America Farmer ROOM SERVICE SERVER Primary Care Provider Andrez Osullivan MD Unavailable [phone] Petty Almeida PA Primary Care Provide r Encounter Details Date Type Department Care Team (Late st Contact Info) Description 02/20/2024 Procedure Pass [facility] and Women's Radiology [address] [place] [address] Social History Tobacco Use Types Packs/Day Years [...] Info) Description 11/28/2024 10:20 AM EDT Appointment [facility] Skeletal Health/Osteoporosis Ctr. and Bone Density Unit 221 [place] [address] Renetta Rosenbaum, PUBLIC AFFAIRS DIRECTOR 75 [place] [address] SPIKE@[email or web address] BRIGETTE 12/09/2024 8:00 AM EDT Office Visit [facility] Cardiac Transplant [address] [place] [address] Cornelio Dunham MD 75 [facility] [place] [address] [email or web address] 12/09/2024 9:00 AM EDT Office Visit [facility] Cardiac Transplant [address] [place] [address] Natalie Estrada MD 01/27/2025 4:40 PM EST Office Visit [facility] [address] [address] [place] [address] Jose Hidalgo MD, MPH 75 [place] [address] LUCERO@[facility] documented as of [...] documented as of this encounter Care Teams Hand Counter Relationship Specialty Start Date End Date America Farmer NP [address] [place] [address] [email or web address] PCP - General Nurse Practitioner 06/06/23 07/28/24 Petty Almeida PA [address] [place] [address] [facility] [place] [address] PCP - General Physician Transfer Professor 07/29/24 Andrez Manrique MD [address] [place] [address] [place] [address] [email or web address]. du Advanced Heart Failure and Transplant Cardiology 08/31/22 Andrez Kahn MD [address] [place] [address] [email or web address] Consulting Provider Cardiology 08/31/22 Luca Alfaro MD [address] [place] [address] [facility] Pediatric Cardiology 08/31/22 Andrez Osullivan MD [address] [place] [address] GINNY@[facility] Pediatric Cardiology 02/05/24 documented as of this encounter Additional Source Comments The information contained in this document represents components of the legal health record. It is not the complete legal health record.[facility]
--- OUTSIDE RECORDS SUMMARY | 2024-11-18 17:28 | XMS_ITS | Encounter Summary ---
Author Organization [facility] Address [address] [facility] [address] [place] [address] Phone Care Team Providers Care Plastic Molder Name Role Phone Andrez Manrique MD Unavailable [phone] Andrez Kahn MD Unavailable [phone] Luca Alfaro MD Unavailable [phone] Andrez Osullivan MD Unavailable [phone] Petty Almeida Primary Care Provide r Encounter Details Date Type Department Care Team (Late st Contact Info) Description 11/18/2024 Telephone [facility] Cardiac Transplant [address] [place] [address] Yessenia Schmitt CNP [address] [place] [address] [email or web address] Social History Tobacco Use Types Packs/Day [...] high school, GED, job training, learning the [place] language, technical skills, or developing parenting skills)? [...] as of this encounter Progress Notes * Yessenia Schmitt, INFORMATION TECHNOLOGY PROJECT MANAGER - 11/18/2024 1:14 PM EDT Seen in clinic by Dr. Dunham for 1 year. Allosure was elevated prior and biopsy was added. Now reported 1-2 R with 3 focci of damage. Rejection History: Date Post-OHT Bx IS 11/09 [...] Allosure 0.15% Pred 5, Myf 360 BID, 11/01 1 year Allomap 33 Allosure .32 Pred 5, MYF 360BID 11/15/24 1 year 1-2 R Oral pulse, pred 5, MYF 720 BID, tac Plan: Per Discussion with Dr. Dunham Will oral pulse for 60 mg x three days increase cellcept 720 mg and repeat CBC in a week keep tac goal 7-10 for now and repeat level in a week (low in clinic) DSA pending Come back 1 month for OV/RHC/Biopsy. Yessenia Schmitt NP Cardiovascular Division/Cardiac Transplantation [facility] [phone] documented in this encounter Plan of Treatment Upcoming Encounters Date Type Department Care Team (Late st Contact Info) Description 11/28/2024 10:20 AM EDT Appointment [facility] Skeletal Health/Osteoporosis Ctr. and Bone Density Unit [address] [place] [address] Renetta Rosenbaum CNP [address] [place] [address] [email or web address] 12/09/2024 8:00 AM EDT Office Visit [facility] Cardiac Transplant [address] [place] [address] Cornelio Dunham MD 75 [facility] [place] [address] [email or web address] 12/09/2024 9:00 AM EDT Office Visit [facility] Cardiac Transplant [address] [place] [address] Unknown, MD Natalie 01/27/2025 4:40 PM EST Office Visit [facility] Medical Specialties [address] [facility]2 [place] [address] Jose Hidalgo MD, MPH 75 [facility] [place] [address] [email or web address] Scheduled Orders Name Type Priority Associated Diagnoses Orde r Schedule CBC and differential Lab Routine Heart transplant status Expected: 11/18/2024, Expires: 11/18/2025 Tacrolimus level Lab Routine Heart transplant status Expected: 11/18/2024, Expires: 11/18/2025 Basic metabolic panel Lab Routine Heart transplant status Expected: 11/18/2024, Expires: 11/18/2025 documented as of this encounter Visit Diagnoses Diagnosis Heart transplant status 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 Assessment Noted Time PHQ-2 Depression Total Score: 0 02/24/20 22 4:08 PM EST documented as of this encounter Care Teams Plastic Molder Relationship Specialty Start Date End Date Petty Almeida PA [address] [place] [phone] PCP - General Physician Flight Dispatcher 07/29/24 Andrez Manrique MD [address] [place] [phone] [email or web address] Advanced Heart Failure and Transplant Cardiology 08/31/22 Andrez Kahn MD [address] [place] [address] [email or web address] Consulting Provider Cardiology 08/31/22 Luca Alfaro MD [address] [place] [address] [email or web address] Pediatric Cardiology 08/31/22 Andrez Osullivan MD [address] [place] [address] [email or web address]. du Pediatric Cardiology 02/05/24 documented as of this encounter Additional Source Comments The information contained in this document represents components of the legal health record. It is not the complete legal health record.[facility]
--- OUTSIDE RECORDS SUMMARY | 2024-11-18 17:29 | XMS_ITS | Encounter Summary ---
Author Organization [facility] Address [address] [facility] [address] [place] [address] Phone Care Team Providers Care Utility Worker Driver Name Role Phone Andrez Manrique MD Unavailable Andrez Kahn MD Unavailable [phone] Luca Alfaro MD Unavailable [phone] America Farmer CHAIR CAR DRIVER Primary Care Provider Andrez Osullivan MD Unavailable [phone] Petty Almeida PA Primary Care Provide r Encounter Details Date Type Department Care Team (Late st Contact Info) Description 02/15/2024 Procedure Pass [facility] Women[facility] Radiology [address] [place] [address] Social History Tobacco Use Types Packs/Day Years [...] Health/Osteoporosis Ctr. and Bone Density Unit [address] [place] [address] Renetta Rosenbaum, REGIONAL DIRECTOR [address] [place] [address] [email or web address] [place] 12/09/2024 8:00 AM EDT Office [facility] Cardiac Transplant [address] [place] [address] Cornelio Dunham MD 75 [facility] [place] [address] [email or web address] 12/09/2024 9:00 AM EDT Office Visit [facility] Cardiac Transplant [address] [place] [address] Natalie Estrada MD 01/27/2025 4:40 PM EST Office [facility] [address] [address] [place] [address] Jose Hidalgo MD, MPH [address] [place] [address] [email or web address] documented as of this [...] documented as of this encounter Care Teams Utility Worker Driver Relationship Specialty Start Date End Date America Farmer NP [address] [place] [address] [email or web address] PCP - General Nurse Practitioner 06/06/23 07/28/24 Petty Almeida PA [address] [place] [address] [facility] [place] [address] PCP - General Physician Newswriter 07/29/24 Andrez Manrique MD [address] [place] [address] [place] [address] [email or web address] du Advanced Heart Failure and Transplant Cardiology 08/31/22 Andrez Kahn MD [address] [place] [address] [email or web address] Consulting Provider Cardiology 08/31/22 Luca Alfaro MD [address] [place] [phone] [email or web address] Pediatric Cardiology 08/31/22 Andrez Osullivan MD [address] [place] [address] [email or web address] [facility] Pediatric Cardiology 02/05/24 documented as of this encounter Additional Source Comments The information contained in this document represents components of the legal health record. It is not the complete legal health record.[facility]
--- OUTSIDE RECORDS SUMMARY | 2024-11-18 17:29 | XMS_ITS | Encounter Summary ---
Author Organization [facility] Address [address] [place] [address] Phone Care Team Providers Care Furniture Restorer Name Role Phone Andrez Manrique MD Unavailable [phone] Andrez Kahn MD Unavailable Luca Alfaro MD Unavailable [phone] America Famrer ARCHITECTURE TECHNICIAN Primary Care Provider Andrze Osullivan MD Unavailable Petty Almeida PA Primary Care Provide r Encounter Details Date Type Department Care Team (Late st Contact Info) Description 03/05/2024 Procedure Pass [facility] and Women's Radiology [address] [place] [address] Social History Tobacco Use Types Packs/Day Years [...] as food, clothing, or medical care? No 03/09/2024 In the past 12 months have y ou been in a relationship with a person who hurts, threatens, or tries to control you? No 03/09/2024 Are you denied basic needs s uch as food, clothing, or medical care? No 03/09/2024 In the past 12 months have y ou been in a relationship with a person who hurts, threatens, or tries to control you? No 03/09/2024 Comments No Sex and Gender Information Value [...] Health/Osteoporosis Ctr. and Bone Density Unit [address] [place] [address] Renetta Rosenbaum, DB2 DEVELOPER [address] [place] [address] [email or web address] 12/09/2024 8:00 AM EDT Office Visit [facility] Cardiac Transplant [address] [place] [address] Cornelio Dunham MD 75 [facility] [place] [address] [email or web address] [facility] 12/09/2024 9:00 AM EDT Office Visit [facility] Cardiac Transplant [address] [place] [address] Unknown, Natalie, 01/27/2025 4:40 PM EST Office Visit [facility] Medical Specialties 45 [facility]2 [place] [address] Jose Hidalgo MD, MPH 75 [facility] [place] [address] [email or web address] documented as [...] documented as of this encounter Care Teams Furniture Restorer Relationship Specialty Start Date End Date America Farmer NP [address] [place] [address] [email or web address] PCP - General Nurse Practitioner 06/06/23 07/28/24 Petty Almeida PA [address] [place] [address] PCP - General Physician Search Engine Optimizer 07/29/24 Andrez Manrique MD [address] [place] [phone] [email or web address] Advanced Heart Failure and Transplant Cardiology 08/31/22 Andrez Kahn MD [address] [place] [phone] [email or web address] Consulting Provider Cardiology 08/31/22 Luca Alfaro MD [address] [place] [phone] [email or web address] Pediatric Cardiology 08/31/22 Andrez Osullivan MD [address] [place] [address] [email or web address] Pediatric Cardiology 02/05/24 documented as of this encounter Additional Source Comments The information contained in this document represents components of the legal health record. It is not the complete legal health record.[facility]
--- OUTSIDE RECORDS SUMMARY | 2024-11-18 17:29 | XMS_ITS | Encounter Summary ---
Author Organization [facility] Address [address] [facility] [address] [place] [address] Phone Care Team Providers Care Detonator Assembler Name Role Phone Andrez Manrique MD Unavailable [phone] Andrez Kahn MD Unavailable [phone] Luca Alfaro MD Unavailable America Farmer SENIOR SPEECH PATHOLOGIST Primary Care Provider Andrez Osullivan MD Unavailable [phone] Petty Almeida PA Primary Care Provide r Encounter Details Date Type Department Care Team (Late st Contact Info) Description 02/26/2024 Procedure Pass [facility] Cardiac Shipping Clerk Packing [address] [place] [phone] Social History Tobacco Use Types Packs/Day Years [...] 11/28/2024 10:20 AM EDT Appointment [facility] Skeletal Health/Osteoporosis Ctr. and Bone Density Unit [address] [place] [address] Renetta Rosenbaum, GLUING PRESSMAN [address] [place] [address] [email or web address] 12/09/2024 8:00 AM EDT Office Visit [facility] Cardiac Transplant [address] [place] [address] Cornelio Dunham MD 75 [facility] [place] [address] [email or web address] 12/09/2024 9:00 AM EDT Office Visit [facility] Cardiac Transplant [address] [place] [address] Natalie, MD Natalie 01/27/2025 4:40 PM EST Office Visit [facility] [address] [address] Jose Hidalgo MD, MPH 75 [place] [address] [email or web address] documented [...] documented as of this encounter Care Teams Detonator Assembler Relationship Specialty Start Date End Date America Farmer NP 5 [place] [address] [email or web address] PCP - General Nurse Practitioner 06/06/23 07/28/24 Petty Almeida PA [address] [place] [address] PCP - General Physician Director Post 07/29/24 Andrez Manrique MD [address] [place] [address] [place] [address] [email or web address] du Advanced Heart Failure and Transplant Cardiology 08/31/22 Andrez Kahn MD [address] [place] [address] [email or web address] Consulting Provider Cardiology 08/31/22 Luca Alfaro MD [address] [place] [address] [email or web address] Pediatric Cardiology 08/31/22 Andrez Osullivan MD [address] [place] [address] [email or web address] Pediatric Cardiology 02/05/24 documented as of this encounter Additional Source Comments The information contained in this document represents components of the legal health record. It is not the complete legal health record.[facility]
--- OUTSIDE RECORDS SUMMARY | 2024-11-18 17:29 | XMS_ITS | Clinical Summary ---
Author Organization [employer] Address [address] [facility] [address] [place] [address] Care Team Providers Care Beater Boss Name Role Phone Loly Brush MD Primary Care Provider [phone] Allergies Active Allergy Reactions Criticality Noted Date [...] 1982 HIV Screening 1982 SDOH Screening 1982 Disability Screening 1982 COVID-19 Vaccine (#1) 10/03/1987 Alcohol/Substance Use Screening 1994 Tobacco Screening 1994 Family Planning (PISQ) 1997 Hepatitis C Screening 2000 HPV Vaccines (2 - 3-dose series) 10/04/2020 09/06/2020 Hepatitis B Vaccines (3 of 3 - 19+ 3-dose series) 04/10/2023 03/16/2024, 02/13/2023, 09/05/2020 Mammogram 11/03/2024 11/03/2022, 11/03/2022 Influenza Vaccine (#1) 2024 , 03/18/2018, 03/01/1999, Additional history exists Cervical Cancer Screening 01/16/2026 HPV/Cotest 01/16/2026 Pap Smear 01/16/2026 01/16/2023 DTaP/Tdap/Td Vaccines (8 - Td or Tdap) 09/05/2030 09/05/2020, 08/04/2010, 11/25/1988, Additional history exists RSV Patients and Patients Aged 60 years or older (1 - 1-dose 75+ series) 2057 HIB Vaccines Completed 11/29/1985 IPV Vaccines Completed 11/25/1988, 09/1984, 01/31/1983, Additional history exists Zoster Vaccines Completed 02/10/2023, 09/06/2020 Hepatitis A Vaccines Aged Out 02/13/2023, 09/05/19 21 No longer eligible based on patient's age to complete this topic Pneumococcal Vaccine: Pediatrics (0 to 5 Years) and At-Risk Patients (6 to 49) Years Completed 02/15/2023, 09/04/2020, 09/29/2010 Meningococcal B Vaccine Aged Out No l [...] Most Recently Relevant to Health Maintenance Insurance [employer] C3 Care Teams Beater Boss Relationship Specialty Start Date End Date Loly Brush MD [address] [place] [address] [phone] PCP - General Family Medicine 03/27/18
--- OUTSIDE RECORDS SUMMARY | 2024-11-18 17:29 | XMS_ITS | Clinical Summary ---
Author Organization [facility] Address [address] [facility] [address] [place] [id number] Phone Care Team Providers Care Electrical Mechanic Name Role Phone Deniz Manrique MD Unavailable [phone] Deniz Kahn MD Unavailable [phone] Luca Alfaro MD Unavailable [phone] Deniz Osullivan MD Unavailable [phone] Petty Almeida Primary Care Provide r Allergies Active Allergy Reactions Criticality Noted Date Comments Hydromorphone Anaphylaxis High 2006 Bronchospasm or Wheezing Other Reaction(s): breathing problems Nitroglycerin Hives 02/05/2023 Medications * This document contains information received from the source organization and may not represent a complete record from that organization. acetaminophen (TYLENOL) 325 mg tabletIndicat ions:RJ (acute kidney injury) Take 2 tablets (650 mg total) by mouth every 6 (six) hours as needed for pain (specific location in comments), fever or headache. 05/23/19 Active Additional Information Patient not taking.Reported on 11/14/2024 predniSONE (DELTASONE) 5 MG tabletIndicat ions:Heart transplant status,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 Take 1 tablet (5 mg total) by mouth daily. 90 tablet 2 06/05/19 25 Active pravastatin (PRAVACHOL) 10 MG tabletIndicat ions:Heart transplant status,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 Take 1 tablet (10 mg total) by mouth daily. 90 tablet 3 06/05/19 25 Active tacrolimus (PROGRAF) 5 MG capsuleIndica tions:Heart transplant status Take 1 capsule (5 mg total) by mouth 2 (two) times a day. 240 capsule 2 06/22/19 25 Active biotin 5 mg Cap Take 2 capsules (10 mg total) by mouth daily. 60 capsule 11 07/31/19 25 Active aspirin 81 MG EC tabletIndicat ions: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 Take 1 tablet (81 mg total) by mouth daily. 90 tablet 3 11/15/19 25 Active predniSONE (DELTASONE) 20 MG tablet Take 1 tablet (20 mg total) by mouth daily with breakfast. 9 tablet 11/19/19 25 Active mycophenolate sodium (MYFORTIC) [address] tabletIndicat ions:Heart transplant status,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 Take 2 tablets (720 mg total) by mouth 2 (two) times a day. 120 tablet 6 11/19/19 25 Active mycophenolate sodium (MYFORTIC) [address] tabletIndicat ions:Heart transplant status,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 Take 1 tablet (360 mg total) by mouth 2 (two) times a day. 90 tablet 6 06/05/19 25 025 Discontinued(Re order) aspirin 81 MG EC tablet Take 1 tablet (81 mg total) by mouth daily. 90 tablet 3 08/24/19 25 025 Discontinued mycophenolate sodium (MYFORTIC) [address] tabletIndicat ions:Heart transplant status,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 Take 2 tablets (720 mg total) by mouth 2 (two) times a day. 120 tablet 6 11/19/19 25 025 Discontinued Active Problems Problem Noted Date Diagnosed Date Immunosuppression 11/14/2024 CKD stage 3b, GFR 30-44 ml/min 11/14/2024 Bacteremia 03/08/2024 Assessment & Plan (03/11/2024 1:53 PM EST): RP hemorrhage, pancreatic duct leak, mesenteric hematoma c/b bowel ischemia s/p ex-lap and IR drains placement, MDR E.coli Pneumonia/superinfection. C/w Ceftazidime-Avibactam 1.25gm q8h and flagl-no stop date until seen by transplant ID. 03/10 due to worsening renal function, decreased ceftazidime-Avibactam to bid per pharmacy recommendation, can increase back to tid if renal function better tomorrow. C/w fluconazole and flagyl. Monitor IR output. F/u with transplant ID on 03/14. CBC reviewed. Assessment & Plan (03/10/2024 2:10 PM EST): RP hemorrhage, pancreatic duct leak, mesenteric hematoma c/b bowel ischemia s/p ex-lap and IR drains palcement, MDR E.coli Pneumonia/superinfection. C/w Ceftazidime-Avibactam 1.25gm q8h and flagl-no stop date until seen by transplant ID. 03/10 due to worsening renal function, decreased ceftazidime-Avibactam to bid per pharmacy recommendation, can increase back to tid if renal function better tomorrow. C/w fluconazole and flagyl. Monitor IR output. F/u with transplant ID on 03/14. Labs due tomorrow. Assessment & Plan (03/09/2024 1:42 PM EST): C/w Ceftazidime-Avibactam 1.25gm q8h and flagl-no stop date until seen by transplant ID. No fever, WBC slightly lower. Infected hematoma 02/18/2024 Leukocytosis 01/29/2024 Heart transplant recipient 01/19/2024 Assessment & Plan (05/22/2024 3:40 PM EST): #Hx of OHT #LVEF 55% (03/21/24) Prolonged hospitalization for advanced HF and OHT from 06/07/23-01/19/24, course with multiple complications. OHT performed 11/04/23. Path from EMB 01/21 showed negative for pathologic antibody mediated rejection. Repeat biopsy on 02/25 showed no evidence of rejection. For immunosuppression, titrated to tacrolimus goal 10-. At time of recent discharge she was on tacrolimus 1 mg BID, along with mycophenolate 720 mg BID. Volume status on admission 01/30-03/08 was maintained on Bumex 4mg daily as needed, dosed per weight. At discharge Bumex 4mg PO was held given RJ and euvolemia. Did not receive Bumex at [facility]. Last bed weight at [facility] on 04/10 was 151 (though with full bedding in bed). Last echo 03/13/2024, EF 55%, RVSP 25. RHC 04/02 demonstrated RA 0, RV 28/3, PCWP 8, PA , CO/CI 5.32/3.09, PVR 195 dsc-5. PA sat 54%, FA 98%. EMB on 04/02 demonstrated no evidence of rejection. RHC 05/06 pending Immunosuppression: - Given history of likely tacro toxicity, tacro dose was slowly uptitrated during admission with goal tacro levels 8-10. - Tacro 2.5 mg morning/3 mg evening, 6.9 on 05/20 - M/Th tacro levels - Given significant pancytopenia during [facility] admission, MMF was held until stably no longer neutropenic and restarted on lower dose of 180 mg BID --> 360mg BID on 05/06 PM - Continues on Prednisone 5mg daily ID Prophylaxis: - Valtrex 500mg daily (post-HD on HD days) for HSV ppx - PO Letermovir for CMV PPX discontinued on 05/[address] Stovall, need to monitor with CMV VLs [id number] for 3 months (1st check 05/23/24) - H/h Pravastatin 10mg QD while admitted given concern for pancreatitis mediated - Atovaquone 1500 mg daily DCed on 05/06 - Posaconazole 300mg QD ppx held per ID given unclear indication and can worsen pancreatitis; ultimately DC'ed Volume status: Off HD as of 05/06, ED ~ 138-139 lbs Weight peaked 145 lbs on 05/14, received Torsemide 40mg daily x 2 days Cre 1.4 on 05/16, downtrending 1.3 on 05/17, normalized 1.0 on 05/20 Continue daily weights Serial volume exams, euvolemic Wt 142 lbs on 05/22, stable May need spot dosing diuresis upon DC, for now held off 2gm Na restriction #RUQ/RLQ pain #Pancreatitis #Hx of abdominal infections #Superinfection (CoNS/MDR E. Coli) of RP/abdominal wall hematomas s/p IR drain placements Recent admission at [facility] (01/28 to 03/08) for +E.Coli infected RP/abdominal wall hematomas, treated with 3 IR drains, Ceftaz-Avibactam and Flagyl (d/c'd 03/16). On this admission, patient reported worsening diffuse abdominal tenderness worse in RUQ/RLQ. Workup notable for initial 03/11 CTAP demonstrating similar to prior 03/05 CTAP pancreatitis, ileus, with stable fluid collection and no new abdominal or pelvic abnormality. Repeat abdominal imaging on 03/18 CTAP notable for c/f hemorrhagic pancreatitis vs bleeding pseudoaneurysm (though reassuringly no active extravasation). Overall, suspect worsening pancreatitis as primary etiology of abdominal pain. MRCP(03/22/24) demonstrated persistent acute interstitial edematous pancreatitis. Dilated and irregular main pancreatic duct, new since January, may be related to pancreatitis. However underlying pancreatic neoplasm must be considered. Abdominal pain resolved during last week of February 2024 following aggressive antibiotic regimen. - GI to perform EUS/ERCP in 6-8 weeks from resolution of current episode to evaluate MRCP findings. Abdominal drains removed on 04/04/24- 04/05/24 once met criteria for removal of < 10cc output over 48 hours. - Pravastatin held due to concern for medication induced pancreatitis, DCed upon [facility] admission as was not getting - No abdominal pain, TBili WNL, monitoring #Anxiety In the setting of a prolonged hospitalization -Psych consulted - PRN atarax 25mg q 6hr - Lexapro 5mg daily - SW following - [facility] Psych consulted and following, stopped Lexapro 5mg daily, started Remeron 7.5mg QHS on 04/17 #Insomnia - Poor sleep, taking Melatonin 3mg PRN and Trazodone 25mg PRN - Remeron as above #AoCD #MATTHIAS #Jewish Last transfusion November 07, 2023 in the setting of her OHT. Hgb remains stable without transfusion. Iron studies demonstrated MATTHIAS thus given IV iron 200 mg x5 days (03/24-03/28). Repeat iron studies demonstrating fully repleted iron. Initiated on epoetin 4000U q14 days bumped to RETACRIT epoetin azalia-epbx 6000U three times weekly. Hemolysis labs (03/21/24) negative. - Monitoring H/H, steadily improving - IV Venofer 400mg x1 on 05/20 - Retacrit 2000U 3x/weekly #B/l pleural effusions, s/p PleurX Previously had R pleural effusion s/p R thora (01/11) with pleurx placement on 01/16. Cap and drain MWF Last drained 75cc on 04/08 Patient developed chest pain 04/09 related to Pleurx drainage. Seen by thoracic team. No acute issues and assessed that pain was likely due to irritation from draining against stiff lungs. Instructed team to be careful with draining and to stop the drain at the earliest sign of pain from patient. - Patient declines Pleurx drainage, remains on RA - Surveillance CXR on 04/18 and again on 05/05 - Thoracics f/u appt on 05/23/24 re pleurex catheter removal plans Discharge Planning Target date of 05/24 home with services Quality Clinical Documentation: Hyperphosphatemia (Present on Admission) . Treating . Phosphorus of 4.9 on 04/26/2024 Resolved: #On tube feeding diet TOOL AND DIE MAKER saw patient and recommended thin liquids with chin tuck and regular solids. Permitted PO diet, dependent on TFs via NGT due to nausea which has slowly been improving - TFs cycled on 05/07 PM - NGT removed on 05/20 - Tolerating PO diet #Acute renal failure, multifactorial Baseline unclear, but has been as low as 0.5 in December 2023. Labs mid-February: Cr 2.50 BUN 116 Tacro 14.3. Overall, suspect intrinsic RJ 2/2 acute pancreatitis, tacro toxicity as the initial insult. Then likely component of cardiorenal given volume overload. Patient developed AMS, lethargy concerning for uremic encephalopathy on 03/19 and was transferred to MICU for urgent initiation of CLUTCH REBUILDER. Deemed too high risk to obtain renal biopsy. Patient had TDC placed on 03/19/24. - HD MWF now off - Hyperphosphatemia managed with 800mg of Renvela, Phos 4.4 on 05/08 and 4.9 on 05/10 - Track I/Os, daily weights - Cystatin C/ Cre on lyte panel improving - HOLD HD on 05/08, last session 05/06, line removal 05/10 at bedside - [facility] Nephrology referral for continuity of care #VRE bacteremia #MecA+ Staph epidermis bacteremia Unclear source of VRE bacteremia (Bcx 03/18). Patient with known pancreatitis and hx of multiple intra-abdominal infections (see below). Given multiple chronic drains/lines, also concerned about line/drain-associated infection. On, 03/22: Bcx growing staph epi and MeCA Treated with antibiotics guided by ID recommendations as below: - Linezolid 600 mg q12h (03/24 - 04/03) - Daptomycin 8 mg/kg q48hr, timed post-HD (03/19-03/24) - Ceftazidime-avibactam 1.25g q8hr (03/19-03/20, 03/21-03/25) - Metronidazole (last given 03/16, 03/18 -03/24) #History of Leukopenia #History of Neutropenia Most likely 2/2 to immunosuppressive meds iso RJ. CMV VL on 03/28 undetectable with next check scheduled for 04/12/24 GCSF given on 03/21/24 ANC<500 Recovered #Diarrhea Ongoing diarrhea since admission with periods of improvement as well as worsening. Extensive infectious workup performed on numerous dates remained negative. Stool pancreatic elastase resulted low, indicating component of exocrine pancreatic insufficiency (EPI) thus initiated on Creon on 04/02, which was switched to VIOKACE on 04/08. Multiple formulations of tube feeds trialed. - TF: [facility] Renal Support 1.8 - Diarrhea most likely multifactorial with significant contributions from EPI and prolonged antibiosis - No longer with diarrhea Assessment & Plan (05/21/2024 2:48 PM EST): #Hx of OHT #LVEF 55% (03/21/24) Prolonged hospitalization for advanced HF and OHT from 06/07/23-01/19/24, course with multiple complications. OHT performed 11/04/23. Path from EMB 01/21 showed negative for pathologic antibody mediated rejection. Repeat biopsy on 02/25 showed no evidence of rejection. For immunosuppression, titrated to tacrolimus goal 10-12. At time of recent discharge she was on tacrolimus 1 mg BID, along with mycophenolate 720 mg BID. Volume status on admission 01/30-03/08 was maintained on Bumex 4mg daily as needed, dosed per weight. At discharge Bumex 4mg PO was held given RJ and euvolemia. Did not receive Bumex at [facility]. Last bed weight at [facility] on 04/10 was 151 (though with full bedding in bed). Last echo 03/13/2024, EF 55%, RVSP 25. RHC 04/02 demonstrated RA 0, RV 28/3, PCWP 8, PA , CO/CI 5.32/3.09, PVR 195 dsc-5. PA sat 54%, FA 98%. EMB on 04/02 demonstrated no evidence of rejection. RHC 05/06 pending Immunosuppression: - Given history of likely tacro toxicity, tacro dose was slowly uptitrated during admission with goal tacro levels 8-10. - Tacro 2.5 mg morning/3 mg evening, 6.9 on 05/20 - M/ tacro levels - Given significant pancytopenia during [facility] admission, MMF was held until stably no longer neutropenic and restarted on lower dose of 180 mg BID --> 360mg BID on 05/06 PM - Continues on Prednisone 5mg daily ID Prophylaxis: - Valtrex 500mg daily (post-HD on HD days) for HSV ppx - PO Letermovir for CMV PPX - H/h Pravastatin 10mg QD while admitted given concern for pancreatitis mediated - Atovaquone 1500 mg daily DCed on 05/06 - Posaconazole 300mg QD ppx held per ID given unclear indication and can worsen pancreatitis; ultimately DC'ed Volume status: Off HD as of 05/06, ED ~ 138-139 lbs Weight peaked 145 lbs on 05/14, received Torsemide 40mg daily x 2 days Cre 1.4 on 05/16, downtrending 1.3 on 05/17, normalized 1.0 on 05/20 Continue daily weights Serial volume exams, euvolemic Wt 142 lbs on 05/20 May need spot dosing diuresis upon DC, for now held off 2gm Na restriction #RUQ/RLQ pain #Pancreatitis #Hx of abdominal infections #Superinfection (CoNS/MDR E. Coli) of RP/abdominal wall hematomas s/p IR drain placements Recent admission at [facility] (01/28 to 03/08) for +E.Coli infected RP/abdominal wall hematomas, treated with 3 IR drains, Ceftaz-Avibactam and Flagyl (d/c'd 03/16). On this admission, patient reported worsening diffuse abdominal tenderness worse in RUQ/RLQ. Workup notable for initial 03/11 CTAP demonstrating similar to prior 03/05 CTAP pancreatitis, ileus, with stable fluid collection and no new abdominal or pelvic abnormality. Repeat abdominal imaging on 03/18 CTAP notable for c/f hemorrhagic pancreatitis vs bleeding pseudoaneurysm (though reassuringly no active extravasation). Overall, suspect worsening pancreatitis as primary etiology of abdominal pain. MRCP(03/22/24) demonstrated persistent acute interstitial edematous pancreatitis. Dilated and irregular main pancreatic duct, new since January, may be related to pancreatitis. However underlying pancreatic neoplasm must be considered. Abdominal pain resolved during last week of February 2024 following aggressive antibiotic regimen. - GI to perform EUS/ERCP in 6-8 weeks from resolution of current episode to evaluate MRCP findings. Abdominal drains removed on 04/04/24- 04/05/24 once met criteria for removal of < 10cc output over 48 hours. - Pravastatin held due to concern for medication induced pancreatitis, DCed upon [facility] admission as was not getting - No abdominal pain, TBili WNL, monitoring #Anxiety In the setting of a prolonged hospitalization -Psych consulted - PRN atarax 25mg q 6hr - Lexapro 5mg daily - SW following - [facility] Psych consulted and following, stopped Lexapro 5mg daily, started Remeron 7.5mg QHS on 04/17 #Insomnia - Poor sleep, taking Melatonin 3mg PRN and Trazodone 25mg PRN - Remeron as above #AoCD #MATTHIAS #Jewish Last transfusion November 07, 2023 in the setting of her OHT. Hgb remains stable without transfusion. Iron studies demonstrated MATTHIAS thus given IV iron 200 mg x5 days (03/24-03/28). Repeat iron studies demonstrating fully repleted iron. Initiated on epoetin 4000U q14 days bumped to RETACRIT epoetin azalia-epbx 6000U three times weekly. Hemolysis labs (03/21/24) negative. - Monitoring H/H, steadily improving - IV Venofer 400mg x1 on 05/20 - Retacrit 2000U 3x/weekly #B/l pleural effusions, s/p PleurX Previously had R pleural effusion s/p R thora (01/11) with pleurx placement on 01/16. Cap and drain MWF Last drained 75cc on 04/08 Patient developed chest pain 04/09 related to Pleurx drainage. Seen by thoracic team. No acute issues and assessed that pain was likely due to irritation from draining against stiff lungs. Instructed team to be careful with draining and to stop the drain at the earliest sign of pain from patient. - Patient declines Pleurx drainage, remains on RA - Surveillance CXR on 04/18 and again on 05/05 - Thoracics f/u appt on 05/23/24 re pleurex catheter removal plans Discharge Planning DME (Wheelchair) I have seen and evaluated Ms. Fidelina Peraza and recommended her to see physical therapy for assessment for DME requirements. She will require a 18 standard wheelchair with swing-away armrests, swing-away leg rests, anti- tippers, and standard cushion in order to safely discharge home and complete all activities of daily living. Patient is unable to ambulate independently within the home due to debility following prolonged hospitalization for open heart transplant in October 2023 with course complicated by retroperitoneal hemorrhage, pancreatic duct leak, mesenteric hematoma, pneumonia, bacteremia, recurrent ileus, malnutrition requiring TPN, respiratory failure, and acute kidney injury requiring hemodialysis. She presents with impaired muscle strength, decreased endurance, impaired aerobic capacity, and impaired standing balance. This limits her ability to safely perform mobility related activities of daily living, including toileting, feeding, grooming, and dressing. The patient's home is able to accommodate a 18 wheelchair between rooms. Ms. Peraza is unable to mobilize on her own or without a wheelchair. Her caregivers will be with her and have been trained to assist with bed mobility, transfers, activities of daily living, and wheelchair mobility as needed to ensure she can mobilize and access her environment. Her mobility cannot be improved by a walker, cane, or other type of assistive device. Without the wheelchair, this patient would be bed bound. The wheelchair is also required to allow Ms. Peraza to safely eat her meals and to complete grooming and hygiene at a sink level. Quality Clinical Documentation: Hyperphosphatemia (Present on Admission) . Treating . Phosphorus of 4.9 on 04/26/2024 Resolved: #On tube feeding diet TOOL AND DIE MAKER saw patient and recommended thin liquids with chin tuck and regular solids. Permitted PO diet, dependent on TFs via NGT due to nausea which has slowly been improving - TFs cycled on 05/07 PM - NGT removed on 05/20 - Tolerating PO diet #Acute renal failure, multifactorial Baseline unclear, but has been as low as 0.5 in December 2023. Labs mid-February: Cr 2.50 BUN 116 Tacro 14.3. Overall, suspect intrinsic RJ 2/2 acute pancreatitis, tacro toxicity as the initial insult. Then likely component of cardiorenal given volume overload. Patient developed AMS, lethargy concerning for uremic encephalopathy on 03/19 and was transferred to MICU for urgent initiation of CLUTCH REBUILDER. Deemed too high risk to obtain renal biopsy. Patient had TDC placed on 03/19/24. - HD MWF now off - Hyperphosphatemia managed with 800mg of Renvela, Phos 4.4 on 05/08 and 4.9 on 05/10 - Track I/Os, daily weights - Cystatin C/ Cre on lyte panel improving - HOLD HD on 05/08, last session 05/06, line removal 05/10 at bedside #VRE bacteremia #MecA+ Staph epidermis bacteremia Unclear source of VRE bacteremia (Bcx 03/18). Patient with known pancreatitis and hx of multiple intra-abdominal infections (see below). Given multiple chronic drains/lines, also concerned about line/drain-associated infection. On, 03/22: Bcx growing staph epi and MeCA Treated with antibiotics guided by ID recommendations as below: - Linezolid 600 mg q12h (03/24 - 04/03) - Daptomycin 8 mg/kg q48hr, timed post-HD (03/19-03/24) - Ceftazidime-avibactam 1.25g q8hr (03/19-03/20, 03/21-03/25) - Metronidazole (last given 03/16, 03/18 -03/24) #History of Leukopenia #History of Neutropenia Most likely 2/2 to immunosuppressive meds iso RJ. CMV VL on 03/28 undetectable with next check scheduled for 04/12/24 GCSF given on 03/21/24 ANC<500 Recovered #Diarrhea Ongoing diarrhea since admission with periods of improvement as well as worsening. Extensive infectious workup performed on numerous dates remained negative. Stool pancreatic elastase resulted low, indicating component of exocrine pancreatic insufficiency (EPI) thus initiated on Creon on 04/02, which was switched to VIOKACE on 04/08. Multiple formulations of tube feeds trialed. - TF: [facility] Renal Support 1.8 - Diarrhea most likely multifactorial with significant contributions from EPI and prolonged antibiosis - No longer with diarrhea Assessment & Plan (05/20/2024 1:56 PM EST): #Hx of OHT #LVEF 55% (03/21/24) Prolonged hospitalization for advanced HF and OHT from 06/07/23-01/19/24, course with multiple complications. OHT performed 11/04/23. Path from EMB 01/21 showed negative for pathologic antibody mediated rejection. Repeat biopsy on 02/25 showed no evidence of rejection. For immunosuppression, titrated to tacrolimus goal 10-12. At time of recent discharge she was on tacrolimus 1 mg BID, along with mycophenolate 720 mg BID. Volume status on admission 01/30-03/08 was maintained on Bumex 4mg daily as needed, dosed per weight. At discharge Bumex 4mg PO was held given RJ and euvolemia. Did not receive Bumex at [facility]. Last bed weight at [facility] on 04/10 was 151 (though with full bedding in bed). Last echo 03/13/2024, EF 55%, RVSP 25. RHC 04/02 demonstrated RA 0, RV 28/3, PCWP 8, PA , CO/CI 5.32/3.09, PVR 195 dsc-5. PA sat 54%, FA 98%. EMB on 04/02 demonstrated no evidence of rejection. RHC 05/06 pending Immunosuppression: - Given history of likely tacro toxicity, tacro dose was slowly uptitrated during admission with goal tacro levels 8-10. - Tacro 2.5 mg morning/3 mg evening, 6.9 on 05/20 - M/Th tacro levels - Given significant pancytopenia during [facility] admission, MMF was held until stably no longer neutropenic and restarted on lower dose of 180 mg BID --> 360mg BID on 05/06 PM - Continues on Prednisone 5mg daily ID Prophylaxis: - Valtrex 500mg daily (post-HD on HD days) for HSV ppx - PO Letermovir for CMV PPX - H/h Pravastatin 10mg QD while admitted given concern for pancreatitis mediated - Atovaquone 1500 mg daily DCed on 05/06 - Posaconazole 300mg QD ppx held per ID given unclear indication and can worsen pancreatitis; ultimately DC'ed Volume status: Off HD as of 05/06, ED ~ 138-139 lbs Weight peaked 145 lbs on 05/14, received Torsemide 40mg daily x 2 days Cre 1.4 on 05/16, downtrending 1.3 on 05/17, normalized 1.0 on 05/20 Continue daily weights Serial volume exams, euvolemic Wt 142 lbs on 05/20 May need spot dosing diuresis upon DC, for now held off 2gm Na restriction #RUQ/RLQ pain #Pancreatitis #Hx of abdominal infections #Superinfection (CoNS/MDR E. Coli) of RP/abdominal wall hematomas s/p IR drain placements Recent admission at [facility] (01/28 to 03/08) for +E.Coli infected RP/abdominal wall hematomas, treated with 3 IR drains, Ceftaz-Avibactam and Flagyl (d/c'd 03/16). On this admission, patient reported worsening diffuse abdominal tenderness worse in RUQ/RLQ. Workup notable for initial 03/11 CTAP demonstrating similar to prior 03/05 CTAP pancreatitis, ileus, with stable fluid collection and no new abdominal or pelvic abnormality. Repeat abdominal imaging on 03/18 CTAP notable for c/f hemorrhagic pancreatitis vs bleeding pseudoaneurysm (though reassuringly no active extravasation). Overall, suspect worsening pancreatitis as primary etiology of abdominal pain. MRCP(03/22/24) demonstrated persistent acute interstitial edematous pancreatitis. Dilated and irregular main pancreatic duct, new since January, may be related to pancreatitis. However underlying pancreatic neoplasm must be considered. Abdominal pain resolved during last week of February 2024 following aggressive antibiotic regimen. - GI to perform EUS/ERCP in 6-8 weeks from resolution of current episode to evaluate MRCP findings. Abdominal drains removed on 04/04/24- 04/05/24 once met criteria for removal of < 10cc output over 48 hours. - Pravastatin held due to concern for medication induced pancreatitis, DCed upon [facility] admission as was not getting - No abdominal pain, TBili WNL, monitoring #Anxiety In the setting of a prolonged hospitalization -Psych consulted - PRN atarax 25mg q 6hr - Lexapro 5mg daily - SW following - [facility] Psych consulted and following, stopped Lexapro 5mg daily, started Remeron 7.5mg QHS on 04/17 #Insomnia - Poor sleep, taking Melatonin 3mg PRN and Trazodone 25mg PRN - Remeron as above #AoCD #MATTHIAS #Jewish Last transfusion November 07, 2023 in the setting of her OHT. Hgb remains stable without transfusion. Iron studies demonstrated MATTHIAS thus given IV iron 200 mg x5 days (03/24-03/28). Repeat iron studies demonstrating fully repleted iron. Initiated on epoetin 4000U q14 days bumped to RETACRIT epoetin azalia-epbx 6000U three times weekly. Hemolysis labs (03/21/24) negative. - Monitoring H/H, steadily improving - IV Venofer 400mg x1 on 05/20 - Retacrit 2000U 3x/weekly #B/l pleural effusions, s/p PleurX Previously had R pleural effusion s/p R thora (01/11) with pleurx placement on 01/16. Cap and drain MWF Last drained 75cc on 04/08 Patient developed chest pain 04/09 related to Pleurx drainage. Seen by thoracic team. No acute issues and assessed that pain was likely due to irritation from draining against stiff lungs. Instructed team to be careful with draining and to stop the drain at the earliest sign of pain from patient. - Patient declines Pleurx drainage, remains on RA - Surveillance CXR on 04/18 and again on 05/05 - Thoracics f/u appt on 05/23/24 re pleurex catheter removal plans Discharge Planning DME (Wheelchair) I have seen and evaluated Ms. Fidelina Peraza and recommended her to see physical therapy for assessment for DME requirements. She will require a 18 standard wheelchair with swing-away armrests, swing-away leg rests, anti- tippers, and standard cushion in order to safely discharge home and complete all activities of daily living. Patient is unable to ambulate independently within the home due to debility following prolonged hospitalization for open heart transplant in October 2023 with course complicated by retroperitoneal hemorrhage, pancreatic duct leak, mesenteric hematoma, pneumonia, bacteremia, recurrent ileus, malnutrition requiring TPN, respiratory failure, and acute kidney injury requiring hemodialysis. She presents with impaired muscle strength, decreased endurance, impaired aerobic capacity, and impaired standing balance. This limits her ability to safely perform mobility related activities of daily living, including toileting, feeding, grooming, and dressing. The patient's home is able to accommodate a 18 wheelchair between rooms. Ms. Peraza is unable to mobilize on her own or without a wheelchair. Her caregivers will be with her and have been trained to assist with bed mobility, transfers, activities of daily living, and wheelchair mobility as needed to ensure she can mobilize and access her environment. Her mobility cannot be improved by a walker, cane, or other type of assistive device. Without the wheelchair, this patient would be bed bound. The wheelchair is also required to allow Ms. Peraza to safely eat her meals and to complete grooming and hygiene at a sink level. Quality Clinical Documentation: Hyperphosphatemia (Present on Admission) . Treating . Phosphorus of 4.9 on 04/26/2024 Resolved: #On tube feeding diet [employer] saw patient and recommended thin liquids with chin tuck and regular solids. Permitted PO diet, dependent on TFs via NGT due to nausea which has slowly been improving - TFs cycled on 05/07 PM - NGT removed on 05/20 - Tolerating PO diet #Acute renal failure, multifactorial Baseline unclear, but has been as low as 0.5 in December 2023. Labs mid-February: Cr 2.50 BUN 116 Tacro 14.3. Overall, suspect intrinsic RJ 2/2 acute pancreatitis, tacro toxicity as the initial insult. Then likely component of cardiorenal given volume overload. Patient developed AMS, lethargy concerning for uremic encephalopathy on 03/19 and was transferred to MICU for urgent initiation of CLUTCH REBUILDER. Deemed too high risk to obtain renal biopsy. Patient had TDC placed on 03/19/24. - HD MWF now off - Hyperphosphatemia managed with 800mg of Renvela, Phos 4.4 on 05/08 and 4.9 on 05/10 - Track I/Os, daily weights - Cystatin C/ Cre on lyte panel improving - HOLD HD on 05/08, last session 05/06, line removal 05/10 at bedside #VRE bacteremia #MecA+ Staph epidermis bacteremia Unclear source of VRE bacteremia (Bcx 03/18). Patient with known pancreatitis and hx of multiple intra-abdominal infections (see below). Given multiple chronic drains/lines, also concerned about line/drain-associated infection. On, 03/22: Bcx growing staph epi and MeCA Treated with antibiotics guided by ID recommendations as below: - Linezolid 600 mg q12h (03/24 - 04/03) - Daptomycin 8 mg/kg q48hr, timed post-HD (03/19-03/24) - Ceftazidime-avibactam 1.25g q8hr (03/19-03/20, 03/21-03/25) - Metronidazole (last given 03/16, 03/18 -03/24) #History of Leukopenia #History of Neutropenia Most likely 2/2 to immunosuppressive meds iso RJ. CMV VL on 03/28 undetectable with next check scheduled for 04/12/24 GCSF given on 03/21/24 ANC<500 Recovered #Diarrhea Ongoing diarrhea since admission with periods of improvement as well as worsening. Extensive infectious workup performed on numerous dates remained negative. Stool pancreatic elastase resulted low, indicating component of exocrine pancreatic insufficiency (EPI) thus initiated on Creon on 04/02, which was switched to VIOKACE on 04/08. Multiple formulations of tube feeds trialed. - TF: [facility] Renal Support 1.8 - Diarrhea most likely multifactorial with significant contributions from EPI and prolonged antibiosis - No longer with diarrhea Assessment & Plan (05/19/2024 1:44 PM EST): #Hx of OHT #LVEF 55% (03/21/24) Prolonged hospitalization for advanced HF and OHT from 06/07/23-01/19/24, course with multiple complications. OHT performed 11/04/23. Path from EMB 01/21 showed negative for pathologic antibody mediated rejection. Repeat biopsy on 02/25 showed no evidence of rejection. For immunosuppression, titrated to tacrolimus goal 10-12. At time of recent discharge she was on tacrolimus 1 mg BID, along with mycophenolate 720 mg BID. Volume status on admission 01/30-03/08 was maintained on Bumex 4mg daily as needed, dosed per weight. At discharge Bumex 4mg PO was held given RJ and euvolemia. Did not receive Bumex at [facility]. Last bed weight at [facility] on 04/10 was 151 (though with full bedding in bed). Last echo 03/13/2024, EF 55%, RVSP 25. RHC 04/02 demonstrated RA 0, RV 28/3, PCWP 8, PA , CO/CI 5.32/3.09, PVR 195 dsc-5. PA sat 54%, FA 98%. EMB on 04/02 demonstrated no evidence of rejection. RHC 05/06 pending Immunosuppression: - Given history of likely tacro toxicity, tacro dose was slowly uptitrated during admission with goal tacro levels 8-10. - Tacro 2.5 mg morning/3 mg evening, 8.0 on 05/16 - M/Th tacro levels - Given significant pancytopenia during [facility] admission, MMF was held until stably no longer neutropenic and restarted on lower dose of 180 mg BID --> 360mg BID on 05/06 PM - Continues on Prednisone 5mg daily ID Prophylaxis: - Valtrex 500mg daily (post-HD on HD days) for HSV ppx - PO Letermovir for CMV PPX - H/h Pravastatin 10mg QD while admitted given concern for pancreatitis mediated - Atovaquone 1500 mg daily DCed on 05/06 - Posaconazole 300mg QD ppx held per ID given unclear indication and can worsen pancreatitis; ultimately DC'ed Volume status: Off HD as of 05/06, ED ~ 138-139 lbs Weight peaked 145 lbs on 05/14, received Torsemide 40mg daily x 2 days Cre 1.4 on 05/16, downtrending 1.3 on 05/17 Wt 139 lbs on 05/16, 140 lbs on 05/17, daily weights Serial volume exams May need spot dosing diuresis upon DC 2gm Na restriction #RUQ/RLQ pain #Pancreatitis #Hx of abdominal infections #Superinfection (CoNS/MDR E. Coli) of RP/abdominal wall hematomas s/p IR drain placements Recent admission at [facility] (01/28 to 03/08) for +E.Coli infected RP/abdominal wall hematomas, treated with 3 IR drains, Ceftaz-Avibactam and Flagyl (d/c'd 03/16). On this admission, patient reported worsening diffuse abdominal tenderness worse in RUQ/RLQ. Workup notable for initial 03/11 CTAP demonstrating similar to prior 03/05 CTAP pancreatitis, ileus, with stable fluid collection and no new abdominal or pelvic abnormality. Repeat abdominal imaging on 03/18 CTAP notable for c/f hemorrhagic pancreatitis vs bleeding pseudoaneurysm (though reassuringly no active extravasation). Overall, suspect worsening pancreatitis as primary etiology of abdominal pain. MRCP(03/22/24) demonstrated persistent acute interstitial edematous pancreatitis. Dilated and irregular main pancreatic duct, new since January, may be related to pancreatitis. However underlying pancreatic neoplasm must be considered. Abdominal pain resolved during last week of February 2024 following aggressive antibiotic regimen. - GI to perform EUS/ERCP in 6-8 weeks from resolution of current episode to evaluate MRCP findings. Abdominal drains removed on 04/04/24- 04/05/24 once met criteria for removal of < 10cc output over 48 hours. - Pravastatin held due to concern for medication induced pancreatitis, DCed upon [facility] admission as was not getting - No abdominal pain, TBili WNL, Alk Phos mildly elevated, otherwise normal #Hx of Ileus #Nutrition #On tube feeding diet [employer] saw patient during recent admission and recommended thin liquids with chin tuck and regular solids. Permitted PO diet, dependent on TFs via NGT due to nausea which has slowly been improving - Check EKG re QTc if PRNs are needed - QTc 535ms on 04/12 - TFs now cycled on 05/07 PM #Anxiety In the setting of a prolonged hospitalization -Psych consulted - PRN atarax 25mg q 6hr - Lexapro 5mg daily - SW following - [facility] Psych consulted and following, stopped Lexapro 5mg daily, started Remeron 7.5mg QHS on 04/17 #Insomnia - Poor sleep, taking Melatonin 3mg PRN and Trazodone 25mg PRN - Remeron as above #AoCD #MATTHIAS #Jewish Last transfusion November 07, 2023 in the setting of her OHT. Hgb remains stable without transfusion. Iron studies demonstrated MATTHIAS thus given IV iron 200 mg x5 days (03/24-03/28). Repeat iron studies demonstrating fully repleted iron. Initiated on epoetin 4000U q14 days bumped to RETACRIT epoetin azalia-epbx 6000U three times weekly. Hemolysis labs (03/21/24) negative. - Monitoring H/H, steadily improving #B/l pleural effusions, s/p PleurX Previously had R pleural effusion s/p R thora (01/11) with pleurx placement on 01/16. Cap and drain MWF Last drained 75cc on 04/08 Patient developed chest pain 04/09 related to Pleurx drainage. Seen by thoracic team. No acute issues and assessed that pain was likely due to irritation from draining against stiff lungs. Instructed team to be careful with draining and to stop the drain at the earliest sign of pain from patient. - Patient declines Pleurx drainage, remains on RA - Surveillance CXR on 04/18 and again on 05/05 - Thoracics f/u appt on 05/23/24 re pleurex catheter removal plans Discharge Planning DME (Wheelchair) I have seen and evaluated Ms. Fidelina Peraza and recommended her to see physical therapy for assessment for DME requirements. She will require a 18 standard wheelchair with swing-away armrests, swing-away leg rests, anti- tippers, and standard cushion in order to safely discharge home and complete all activities of daily living. Patient is unable to ambulate independently within the home due to debility following prolonged hospitalization for open heart transplant in October 2023 with course complicated by retroperitoneal hemorrhage, pancreatic duct leak, mesenteric hematoma, pneumonia, bacteremia, recurrent ileus, malnutrition requiring TPN, respiratory failure, and acute kidney injury requiring hemodialysis. She presents with impaired muscle strength, decreased endurance, impaired aerobic capacity, and impaired standing balance. This limits her ability to safely perform mobility related activities of daily living, including toileting, feeding, grooming, and dressing. The patient's home is able to accommodate a 18 wheelchair between rooms. Ms. Peraza is unable to mobilize on her own or without a wheelchair. Her caregivers will be with her and have been trained to assist with bed mobility, transfers, activities of daily living, and wheelchair mobility as needed to ensure she can mobilize and access her environment. Her mobility cannot be improved by a walker, cane, or other type of assistive device. Without the wheelchair, this patient would be bed bound. The wheelchair is also required to allow Ms. Peraza to safely eat her meals and to complete grooming and hygiene at a sink level. Quality Clinical Documentation: Hyperphosphatemia (Present on Admission) . Treating . Phosphorus of 4.9 on 04/26/2024 Resolved: #Acute renal failure, multifactorial Baseline unclear, but has been as low as 0.5 in December 2023. Labs mid-February: Cr 2.50 BUN 116 [place] 14.3. Overall, suspect intrinsic RJ 2/2 acute pancreatitis, tacro toxicity as the initial insult. Then likely component of cardiorenal given volume overload. Patient developed AMS, lethargy concerning for uremic encephalopathy on 03/19 and was transferred to MICU for urgent initiation of CLUTCH REBUILDER. Deemed too high risk to obtain renal biopsy. Patient had TDC placed on 03/19/24. - HD MWF now off - Hyperphosphatemia managed with 800mg of Renvela, Phos 4.4 on 05/08 and 4.9 on 05/10 - Track I/Os, daily weights - Cystatin C/ Cre on lyte panel improving - HOLD HD on 05/08, last session 05/06, line removal 05/10 at bedside #VRE bacteremia #MecA+ Staph epidermis bacteremia Unclear source of VRE bacteremia (Bcx 03/18). Patient with known pancreatitis and hx of multiple intra-abdominal infections (see below). Given multiple chronic drains/lines, also concerned about line/drain-associated infection. On, 03/22: Bcx growing staph epi and MeCA Treated with antibiotics guided by ID recommendations as below: - Linezolid 600 mg q12h (03/24 - 04/03) - Daptomycin 8 mg/kg q48hr, timed post-HD (03/19-03/24) - Ceftazidime-avibactam 1.25g q8hr (03/19-03/20, 03/21-03/25) - Metronidazole (last given 03/16, 03/18 -03/24) #History of Leukopenia #History of Neutropenia Most likely 2/2 to immunosuppressive meds iso RJ. CMV VL on 03/28 undetectable with next check scheduled for 04/12/24 GCSF given on 03/21/24 ANC<500 Recovered #Diarrhea Ongoing diarrhea since admission with periods of improvement as well as worsening. Extensive infectious workup performed on numerous dates remained negative. Stool pancreatic elastase resulted low, indicating component of exocrine pancreatic insufficiency (EPI) thus initiated on Creon on 04/02, which was switched to VIOKACE on 04/08. Multiple formulations of tube feeds trialed. - TF: [facility] Renal Support 1.8 - Diarrhea most likely multifactorial with significant contributions from EPI and prolonged antibiosis - No longer with diarrhea Assessment & Plan (05/18/2024 12:05 PM EST): #Hx of OHT #LVEF 55% (03/21/24) Prolonged hospitalization for advanced HF and OHT from 06/07/23-01/19/24, course with multiple complications. OHT performed 11/04/23. Path from EMB 01/21 showed negative for pathologic antibody mediated rejection. Repeat biopsy on 02/25 showed no evidence of rejection. For immunosuppression, titrated to tacrolimus goal 10-12. At time of recent discharge she was on tacrolimus 1 mg BID, along with mycophenolate 720 mg BID. Volume status on admission 01/30-03/08 was maintained on Bumex 4mg daily as needed, dosed per weight. At discharge Bumex 4mg PO was held given RJ and euvolemia. Did not receive Bumex at [facility]. Last bed weight at [facility] on 04/10 was 151 (though with full bedding in bed). Last echo 03/13/2024, EF 55%, RVSP 25. RHC 04/02 demonstrated RA 0, RV 28/3, PCWP 8, PA /14/21, CO/CI 5.32/3.09, PVR 195 dsc-5. PA sat 54%, FA 98%. EMB on 04/02 demonstrated no evidence of rejection. RHC 05/06 pending Immunosuppression: - Given history of likely tacro toxicity, tacro dose was slowly uptitrated during admission with goal tacro levels 8-10. - Tacro 2.5 mg morning/3 mg evening, 8.0 on 05/16 - M/Th tacro levels - Given significant pancytopenia during [facility] admission, MMF was held until stably no longer neutropenic and restarted on lower dose of 180 mg BID --> 360mg BID on 05/06 PM - Continues on Prednisone 5mg daily ID Prophylaxis: - Valtrex 500mg daily (post-HD on HD days) for HSV ppx - PO Letermovir for CMV PPX - H/h Pravastatin 10mg QD while admitted given concern for pancreatitis mediated - Atovaquone 1500 mg daily DCed on 05/06 - Posaconazole 300mg QD ppx held per ID given unclear indication and can worsen pancreatitis; ultimately DC'ed Volume status: Off HD as of 05/06, ED ~ 138-139 lbs Weight peaked 145 lbs on 05/14, received Torsemide 40mg daily x 2 days Cre 1.4 on 05/16, downtrending 1.3 on 05/17 Wt 139 lbs on 05/16, 140 lbs on 05/17, daily weights Serial volume exams May need spot dosing diuresis upon DC 2gm Na restriction #RUQ/RLQ pain #Pancreatitis #Hx of abdominal infections #Superinfection (CoNS/MDR E. Coli) of RP/abdominal wall hematomas s/p IR drain placements Recent admission at [facility] (01/28 to 03/08) for +E.Coli infected RP/abdominal wall hematomas, treated with 3 IR drains, Ceftaz-Avibactam and Flagyl (d/c'd 03/16). On this admission, patient reported worsening diffuse abdominal tenderness worse in RUQ/RLQ. Workup notable for initial 03/11 CTAP demonstrating similar to prior 03/05 CTAP pancreatitis, ileus, with stable fluid collection and no new abdominal or pelvic abnormality. Repeat abdominal imaging on 03/18 CTAP notable for c/f hemorrhagic pancreatitis vs bleeding pseudoaneurysm (though reassuringly no active extravasation). Overall, suspect worsening pancreatitis as primary etiology of abdominal pain. MRCP(03/22/24) demonstrated persistent acute interstitial edematous pancreatitis. Dilated and irregular main pancreatic duct, new since January, may be related to pancreatitis. However underlying pancreatic neoplasm must be considered. Abdominal pain resolved during last week of February 2024 following aggressive antibiotic regimen. - GI to perform EUS/ERCP in 6-8 weeks from resolution of current episode to evaluate MRCP findings. Abdominal drains removed on 04/04/24- 04/05/24 once met criteria for removal of < 10cc output over 48 hours. - Pravastatin held due to concern for medication induced pancreatitis, DCed upon [facility] admission as was not getting - No abdominal pain, TBili WNL, Alk Phos mildly elevated, otherwise normal #Hx of Ileus #Nutrition #On tube feeding diet [employer] saw patient during recent admission and recommended thin liquids with chin tuck and regular solids. Permitted PO diet, dependent on TFs via NGT due to nausea which has slowly been improving - Check EKG re QTc if PRNs are needed - QTc 535ms on 04/12 - TFs now cycled on 05/07 PM #Anxiety In the setting of a prolonged hospitalization -Psych consulted - PRN atarax 25mg q 6hr - Lexapro 5mg daily - SW following - [facility] Psych consulted and following, stopped Lexapro 5mg daily, started Remeron 7.5mg QHS on 04/17 #Insomnia - Poor sleep, taking Melatonin 3mg PRN and Trazodone 25mg PRN - Remeron as above #AoCD #MATTHIAS #Jewish Last transfusion November 07, 2023 in the setting of her OHT. Hgb remains stable without transfusion. Iron studies demonstrated MATTHIAS thus given IV iron 200 mg x5 days (03/24-03/28). Repeat iron studies demonstrating fully repleted iron. Initiated on epoetin 4000U q14 days bumped to RETACRIT epoetin azalia-epbx 6000U three times weekly. Hemolysis labs (03/21/24) negative. - Monitoring H/H, steadily improving #B/l pleural effusions, s/p PleurX Previously had R pleural effusion s/p R thora (01/11) with pleurx placement on 01/16. Cap and drain MWF Last drained 75cc on 04/08 Patient developed chest pain 04/09 related to Pleurx drainage. Seen by thoracic team. No acute issues and assessed that pain was likely due to irritation from draining against stiff lungs. Instructed team to be careful with draining and to stop the drain at the earliest sign of pain from patient. - Patient declines Pleurx drainage, remains on RA - Surveillance CXR on 04/18 and again on 05/05 - Thoracics f/u appt on 05/23/24 re pleurex catheter removal plans Discharge Planning DME (Wheelchair) I have seen and evaluated Ms. Fidelina Peraza and recommended her to see physical therapy for assessment for DME requirements. She will require a 18 standard wheelchair with swing-away armrests, swing-away leg rests, anti- tippers, and standard cushion in order to safely discharge home and complete all activities of daily living. Patient is unable to ambulate independently within the home due to debility following prolonged hospitalization for open heart transplant in October 2023 with course complicated by retroperitoneal hemorrhage, pancreatic duct leak, mesenteric hematoma, pneumonia, bacteremia, recurrent ileus, malnutrition requiring TPN, respiratory failure, and acute kidney injury requiring hemodialysis. She presents with impaired muscle strength, decreased endurance, impaired aerobic capacity, and impaired standing balance. This limits her ability to safely perform mobility related activities of daily living, including toileting, feeding, grooming, and dressing. The patient's home is able to accommodate a 18 wheelchair between rooms. Ms. Peraza is unable to mobilize on her own or without a wheelchair. Her caregivers will be with her and have been trained to assist with bed mobility, transfers, activities of daily living, and wheelchair mobility as needed to ensure she can mobilize and access her environment. Her mobility cannot be improved by a walker, cane, or other type of assistive device. Without the wheelchair, this patient would be bed bound. The wheelchair is also required to allow Ms. Peraza to safely eat her meals and to complete grooming and hygiene at a sink level. Quality Clinical Documentation: Hyperphosphatemia (Present on Admission) . Treating . Phosphorus of 4.9 on 04/26/2024 Resolved: #Acute renal failure, multifactorial Baseline unclear, but has been as low as 0.5 in December 2023. Labs mid-February: Cr 2.50 BUN 116 Tacro 14.3. Overall, suspect intrinsic RJ 2/2 acute pancreatitis, tacro toxicity as the initial insult. Then likely component of cardiorenal given volume overload. Patient developed AMS, lethargy concerning for uremic encephalopathy on 03/19 and was transferred to MICU for urgent initiation of CLUTCH REBUILDER. Deemed too high risk to obtain renal biopsy. Patient had TDC placed on 03/19/24. - HD MWF now off - Hyperphosphatemia managed with 800mg of Renvela, Phos 4.4 on 05/08 and 4.9 on 05/10 - Track I/Os, daily weights - Cystatin C/ Cre on lyte panel improving - HOLD HD on 05/08, last session 05/06, line removal 05/10 at bedside #VRE bacteremia #MecA+ Staph epidermis bacteremia Unclear source of VRE bacteremia (Bcx 03/18). Patient with known pancreatitis and hx of multiple intra-abdominal infections (see below). Given multiple chronic drains/lines, also concerned about line/drain-associated infection. On, 03/22: Bcx growing staph epi and MeCA Treated with antibiotics guided by ID recommendations as below: - Linezolid 600 mg q12h (03/24 - 04/03) - Daptomycin 8 mg/kg q48hr, timed post-HD (03/19-03/24) - Ceftazidime-avibactam 1.25g q8hr (03/19-03/20, 03/21-03/25) - Metronidazole (last given 03/16, 03/18 -03/24) #History of Leukopenia #History of Neutropenia Most likely /2 to immunosuppressive meds iso RJ. CMV VL on 03/28 undetectable with next check scheduled for 04/12/24 GCSF given on 03/21/24 ANC<500 Recovered #Diarrhea Ongoing diarrhea since admission with periods of improvement as well as worsening. Extensive infectious workup performed on numerous dates remained negative. Stool pancreatic elastase resulted low, indicating component of exocrine pancreatic insufficiency (EPI) thus initiated on Creon on 04/02, which was switched to VIOKACE on 04/08. Multiple formulations of tube feeds trialed. - TF: [facility] Renal Support 1.8 - Diarrhea most likely multifactorial with significant contributions from EPI and prolonged antibiosis - No longer with diarrhea Assessment & Plan (05/18/2024 6:49 AM EST): #Hx of OHT #LVEF 55% (03/21/24) Prolonged hospitalization for advanced HF and OHT from 06/07/23-01/19/24, course with multiple complications. OHT performed 11/04/23. Path from EMB 01/21 showed negative for pathologic antibody mediated rejection. Repeat biopsy on 02/25 showed no evidence of rejection. For immunosuppression, titrated to tacrolimus goal -. At time of recent discharge she was on tacrolimus 1 mg BID, along with mycophenolate 720 mg BID. Volume status on admission 01/30-03/08 was maintained on Bumex 4mg daily as needed, dosed per weight. At discharge Bumex 4mg PO was held given RJ and euvolemia. Did not receive Bumex at [facility]. Last bed weight at [facility] on 04/10 was 151 (though with full bedding in bed). Last echo 03/13/2024, EF 55%, RVSP 25. RHC 04/02 demonstrated RA 0, RV 28/3, PCWP 8, PA , CO/CI 5.32/3.09, PVR 195 dsc-5. PA sat 54%, FA 98%. EMB on 04/02 demonstrated no evidence of rejection. RHC 05/06 pending Immunosuppression: - Given history of likely tacro toxicity, tacro dose was slowly uptitrated during admission with goal tacro levels 8-10. - Tacro 2.5 mg morning/3 mg evening, 8.0 on 05/16 - M/Th tacro levels - Given significant pancytopenia during [facility] admission, MMF was held until stably no longer neutropenic and restarted on lower dose of 180 mg BID --> 360mg BID on 05/06 PM - Continues on Prednisone 5mg daily ID Prophylaxis: - Valtrex 500mg daily (post-HD on HD days) for HSV ppx - PO Letermovir for CMV PPX - H/h Pravastatin 10mg QD while admitted given concern for pancreatitis mediated - Atovaquone 1500 mg daily DCed on 05/06 - Posaconazole 300mg QD ppx held per ID given unclear indication and can worsen pancreatitis; ultimately DC'ed Volume status: Off HD as of 05/06, ED ~ 138-139 lbs Weight peaked 145 lbs on 05/14, received Torsemide 40mg daily x 2 days Cre 1.4 on 05/16, downtrending 1.3 on 05/17 Wt 139 lbs on 05/16, 140 lbs on 05/17, daily weights Serial volume exams May need spot dosing diuresis upon DC 2gm Na restriction #RUQ/RLQ pain #Pancreatitis #Hx of abdominal infections #Superinfection (CoNS/MDR E. Coli) of RP/abdominal wall hematomas s/p IR drain placements Recent admission at [facility] (01/28 to 03/08) for +E.Coli infected RP/abdominal wall hematomas, treated with 3 IR drains, Ceftaz-Avibactam and Flagyl (d/c'd 03/16). On this admission, patient reported worsening diffuse abdominal tenderness worse in RUQ/RLQ. Workup notable for initial 03/11 CTAP demonstrating similar to prior 03/05 CTAP pancreatitis, ileus, with stable fluid collection and no new abdominal or pelvic abnormality. Repeat abdominal imaging on 03/18 CTAP notable for c/f hemorrhagic pancreatitis vs bleeding pseudoaneurysm (though reassuringly no active extravasation). Overall, suspect worsening pancreatitis as primary etiology of abdominal pain. MRCP(03/22/24) demonstrated persistent acute interstitial edematous pancreatitis. Dilated and irregular main pancreatic duct, new since January, may be related to pancreatitis. However underlying pancreatic neoplasm must be considered. Abdominal pain resolved during last week of February 2024 following aggressive antibiotic regimen. - GI to perform EUS/ERCP in 6-8 weeks from resolution of current episode to evaluate MRCP findings. Abdominal drains removed on 04/04/24- 04/05/24 once met criteria for removal of < 10cc output over 48 hours. - Pravastatin held due to concern for medication induced pancreatitis, DCed upon [facility] admission as was not getting - No abdominal pain, TBili WNL, Alk Phos mildly elevated, otherwise normal #Hx of Ileus #Nutrition #On tube feeding diet [employer] saw patient during recent admission and recommended thin liquids with chin tuck and regular solids. Permitted PO diet, dependent on TFs via NGT due to nausea which has slowly been improving - Check EKG re QTc if PRNs are needed - QTc 535ms on 04/12 - TFs now cycled on 2/11 PM #Anxiety In the setting of a prolonged hospitalization -Psych consulted - PRN atarax 25mg q 6hr - Lexapro 5mg daily - SW following - [facility] Psych consulted and following, stopped Lexapro 5mg daily, started Remeron 7.5mg QHS on 04/17 #Insomnia - Poor sleep, taking Melatonin 3mg PRN and Trazodone 25mg PRN - Remeron as above #AoCD #MATTHIAS #Jewish Last transfusion November 07, 2023 in the setting of her OHT. Hgb remains stable without transfusion. Iron studies demonstrated MATTHIAS thus given IV iron 200 mg x5 days (03/24-03/28). Repeat iron studies demonstrating fully repleted iron. Initiated on epoetin 4000U q14 days bumped to RETACRIT epoetin azalia-epbx 6000U three times weekly. Hemolysis labs (03/21/24) negative. - Monitoring H/H, steadily improving #B/l pleural effusions, s/p PleurX Previously had R pleural effusion s/p R thora (01/11) with pleurx placement on 01/16. Cap and drain MWF Last drained 75cc on 04/08 Patient developed chest pain 04/09 related to Pleurx drainage. Seen by thoracic team. No acute issues and assessed that pain was likely due to irritation from draining against stiff lungs. Instructed team to be careful with draining and to stop the drain at the earliest sign of pain from patient. - Patient declines Pleurx drainage, remains on RA - Surveillance CXR on 04/18 and again on 05/05 - Thoracics f/u appt on 05/23/24 re pleurex catheter removal plans Discharge Planning DME (Wheelchair) I have seen and evaluated Ms. Fidelina Peraza and recommended her to see physical therapy for assessment for DME requirements. She will require a 18 standard wheelchair with swing-away armrests, swing-away leg rests, anti- tippers, and standard cushion in order to safely discharge home and complete all activities of daily living. Patient is unable to ambulate independently within the home due to debility following prolonged hospitalization for open heart transplant in October 2023 with course complicated by retroperitoneal hemorrhage, pancreatic duct leak, mesenteric hematoma, pneumonia, bacteremia, recurrent ileus, malnutrition requiring TPN, respiratory failure, and acute kidney injury requiring hemodialysis. She presents with impaired muscle strength, decreased endurance, impaired aerobic capacity, and impaired standing balance. This limits her ability to safely perform mobility related activities of daily living, including toileting, feeding, grooming, and dressing. The patient's home is able to accommodate a 18 wheelchair between rooms. Ms. Peraza is unable to mobilize on her own or without a wheelchair. Her caregivers will be with her and have been trained to assist with bed mobility, transfers, activities of daily living, and wheelchair mobility as needed to ensure she can mobilize and access her environment. Her mobility cannot be improved by a walker, cane, or other type of assistive device. Without the wheelchair, this patient would be bed bound. The wheelchair is also required to allow Ms. Peraza to safely eat her meals and to complete grooming and hygiene at a sink level. Quality Clinical Documentation: Hyperphosphatemia (Present on Admission) . Treating . Phosphorus of 4.9 on 04/26/2024 Resolved: #Acute renal failure, multifactorial Baseline unclear, but has been as low as 0.5 in December 2023. Labs mid-February: Cr 2.50 BUN 116 Tacro 14.3. Overall, suspect intrinsic RJ 2/2 acute pancreatitis, tacro toxicity as the initial insult. Then likely component of cardiorenal given volume overload. Patient developed AMS, lethargy concerning for uremic encephalopathy on 03/19 and was transferred to MICU for urgent initiation of CLUTCH REBUILDER. Deemed too high risk to obtain renal biopsy. Patient had TDC placed on 03/19/24. - HD MWF now off - Hyperphosphatemia managed with 800mg of Renvela, Phos 4.4 on 05/08 and 4.9 on 05/10 - Track I/Os, daily weights - Cystatin C/ Cre on lyte panel improving - HOLD HD on 05/08, last session 05/06, line removal 05/10 at bedside #VRE bacteremia #MecA+ Staph epidermis bacteremia Unclear source of VRE bacteremia (Bcx 03/18). Patient with known pancreatitis and hx of multiple intra-abdominal infections (see below). Given multiple chronic drains/lines, also concerned about line/drain-associated infection. On, 03/22: Bcx growing staph epi and MeCA Treated with antibiotics guided by ID recommendations as below: - Linezolid 600 mg q12h (03/24 - 04/03) - Daptomycin 8 mg/kg q48hr, timed post-HD (03/19-03/24) - Ceftazidime-avibactam 1.25g q8hr (03/19-03/20, 03/21-03/25) - Metronidazole (last given 03/16, 03/18 -03/24) #History of Leukopenia #History of Neutropenia Most likely 2/2 to immunosuppressive meds iso RJ. CMV VL on 03/28 undetectable with next check scheduled for 04/12/24 GCSF given on 03/21/24 ANC<500 Recovered #Diarrhea Ongoing diarrhea since admission with periods of improvement as well as worsening. Extensive infectious workup performed on numerous dates remained negative. Stool pancreatic elastase resulted low, indicating component of exocrine pancreatic insufficiency (EPI) thus initiated on Creon on 04/02, which was switched to VIOKACE on 04/08. Multiple formulations of tube feeds trialed. - TF: [facility] [employer] Renal Support 1.8 - Diarrhea most likely multifactorial with significant contributions from EPI and prolonged antibiosis - No longer with diarrhea Assessment & Plan (05/16/2024 3:58 PM EST): #Hx of OHT #LVEF 55% (03/21/24) Prolonged hospitalization for advanced HF and OHT from 06/07/23-01/19/24, course with multiple complications. OHT performed 11/04/23. Path from EMB 01/21 showed negative for pathologic antibody mediated rejection. Repeat biopsy on 02/25 showed no evidence of rejection. For immunosuppression, titrated to tacrolimus goal 10-12. At time of recent discharge she was on tacrolimus 1 mg BID, along with mycophenolate 720 mg BID. Volume status on admission 01/30-03/08 was maintained on Bumex 4mg daily as needed, dosed per weight. At discharge Bumex 4mg PO was held given RJ and euvolemia. Did not receive Bumex at [facility]. Last bed weight at [facility] on 04/10 was 151 (though with full bedding in bed). Last echo 03/13/2024, EF 55%, RVSP 25. RHC 04/02 demonstrated RA 0, RV 28/3, PCWP 8, PA //, CO/CI 5.32/3.09, PVR 195 dsc-5. PA sat 54%, FA 98%. EMB on 04/02 demonstrated no evidence of rejection. RHC 05/06 pending Immunosuppression: - Given history of likely tacro toxicity, tacro dose was slowly uptitrated during admission with goal tacro levels 8-10. - Tacro 2.5 mg morning/3 mg evening, 8.0 on 05/16 - M/Th tacro levels - Given significant pancytopenia during [facility] admission, MMF was held until stably no longer neutropenic and restarted on lower dose of 180 mg BID --> 360mg BID on 05/06 PM - Continues on Prednisone 5mg daily ID Prophylaxis: - Valtrex 500mg daily (post-HD on HD days) for HSV ppx - PO Letermovir for CMV PPX - H/h Pravastatin 10mg QD while admitted given concern for pancreatitis mediated - Atovaquone 1500 mg daily DCed on 05/06 - Posaconazole 300mg QD ppx held per ID given unclear indication and can worsen pancreatitis; ultimately DC'ed Volume status: Off HD as of 05/06, ED ~ 138-139 lbs Weight peaked 145 lbs on 05/14, received Torsemide 40mg daily x 2 days Cre 1.4 on 05/16 Wt 139 lbs on 05/16 Serial volume exams May need spot dosing diuresis upon DC 2gm Na restriction #RUQ/RLQ pain #Pancreatitis #Hx of abdominal infections #Superinfection (CoNS/MDR E. Coli) of RP/abdominal wall hematomas s/p IR drain placements Recent admission at [facility] (01/28 to 03/08) for +E.Coli infected RP/abdominal wall hematomas, treated with 3 IR drains, Ceftaz-Avibactam and Flagyl (d/c'd 03/16). On this admission, patient reported worsening diffuse abdominal tenderness worse in RUQ/RLQ. Workup notable for initial 03/11 CTAP demonstrating similar to prior 03/05 CTAP pancreatitis, ileus, with stable fluid collection and no new abdominal or pelvic abnormality. Repeat abdominal imaging on 03/18 CTAP notable for c/f hemorrhagic pancreatitis vs bleeding pseudoaneurysm (though reassuringly no active extravasation). Overall, suspect worsening pancreatitis as primary etiology of abdominal pain. MRCP(03/22/24) demonstrated persistent acute interstitial edematous pancreatitis. Dilated and irregular main pancreatic duct, new since January, may be related to pancreatitis. However underlying pancreatic neoplasm must be considered. Abdominal pain resolved during last week of February 2024 following aggressive antibiotic regimen. - GI to perform EUS/ERCP in 6-8 weeks from resolution of current episode to evaluate MRCP findings. Abdominal drains removed on 04/04/24- 04/05/24 once met criteria for removal of < 10cc output over 48 hours. - Pravastatin held due to concern for medication induced pancreatitis, DCed upon [facility] admission as was not getting - No abdominal pain, TBili WNL, Alk Phos mildly elevated, otherwise normal #Hx of Ileus #Nutrition #On tube feeding diet [employer] saw patient during recent admission and recommended thin liquids with chin tuck and regular solids. Permitted PO diet, dependent on TFs via NGT due to nausea which has slowly been improving - Check EKG re QTc if PRNs are needed - QTc 535ms on 04/12 - TFs now cycled on 05/07 PM #Anxiety In the setting of a prolonged hospitalization -Psych consulted - PRN atarax 25mg q 6hr - Lexapro 5mg daily - SW following - [facility] Psych consulted and following, stopped Lexapro 5mg daily, started Remeron 7.5mg QHS on 04/17 #Insomnia - Poor sleep, taking Melatonin 3mg PRN and Trazodone 25mg PRN - Remeron as above #AoCD #MATTHIAS #Jewish Last transfusion November 07, 2023 in the setting of her OHT. Hgb remains stable without transfusion. Iron studies demonstrated MATTHIAS thus given IV iron 200 mg x5 days (03/24-03/28). Repeat iron studies demonstrating fully repleted iron. Initiated on epoetin 4000U q14 days bumped to RETACRIT epoetin azalia-epbx 6000U three times weekly. Hemolysis labs (03/21/24) negative. - Monitoring H/H, steadily improving #B/l pleural effusions, s/p PleurX Previously had R pleural effusion s/p R thora (01/11) with pleurx placement on 01/16. Cap and drain MWF Last drained 75cc on 04/08 Patient developed chest pain 04/09 related to Pleurx drainage. Seen by thoracic team. No acute issues and assessed that pain was likely due to irritation from draining against stiff lungs. Instructed team to be careful with draining and to stop the drain at the earliest sign of pain from patient. - Patient declines Pleurx drainage, remains on RA - Surveillance CXR on 04/18 and again on 05/05 - Thoracics f/u appt on 05/23/24 re pleurex catheter removal plans Quality Clinical Documentation: Hyperphosphatemia (Present on Admission) . Treating . Phosphorus of 4.9 on 04/26/2024 Resolved: #Acute renal failure, multifactorial Baseline unclear, but has been as low as 0.5 in December 2023. Labs mid-February: Cr 2.50 BUN 116 Tacro 14.3. Overall, suspect intrinsic RJ 2/2 acute pancreatitis, tacro toxicity as the initial insult. Then likely component of cardiorenal given volume overload. Patient developed AMS, lethargy concerning for uremic encephalopathy on 03/19 and was transferred to MICU for urgent initiation of CLUTCH REBUILDER. Deemed too high risk to obtain renal biopsy. Patient had TDC placed on 03/19/24. - HD MWF now off - Hyperphosphatemia managed with 800mg of Renvela, Phos 4.4 on 05/08 and 4.9 on 05/10 - Track I/Os, daily weights - Cystatin C/ Cre on lyte panel improving - HOLD HD on 05/08, last session 05/06, line removal 05/10 at bedside #VRE bacteremia #MecA+ Staph epidermis bacteremia Unclear source of VRE bacteremia (Bcx 03/18). Patient with known pancreatitis and hx of multiple intra-abdominal infections (see below). Given multiple chronic drains/lines, also concerned about line/drain-associated infection. On, 03/22: Bcx growing staph epi and MeCA Treated with antibiotics guided by ID recommendations as below: - Linezolid 600 mg q12h (03/24 - 04/03) - Daptomycin 8 mg/kg q48hr, timed post-HD (03/19-03/24) - Ceftazidime-avibactam 1.25g q8hr (03/19-03/20, 03/21-03/25) - Metronidazole (last given 03/16, 03/18 -03/24) #History of Leukopenia #History of Neutropenia Most likely 2/2 to immunosuppressive meds iso RJ. CMV VL on 03/28 undetectable with next check scheduled for 04/12/24 GCSF given on 03/21/24 ANC<500 Recovered #Diarrhea Ongoing diarrhea since admission with periods of improvement as well as worsening. Extensive infectious workup performed on numerous dates remained negative. Stool pancreatic elastase resulted low, indicating component of exocrine pancreatic insufficiency (EPI) thus initiated on Creon on 04/02, which was switched to VIOKACE on 04/08. Multiple formulations of tube feeds trialed. - TF: [facility] Renal Support 1.8 - Diarrhea most likely multifactorial with significant contributions from EPI and prolonged antibiosis - No longer with diarrhea Assessment & Plan (05/15/2024 3:04 PM EST): #Hx of OHT #LVEF 55% (03/21/24) Prolonged hospitalization for advanced HF and OHT from 06/07/23-01/19/24, course with multiple complications. OHT performed 11/04/23. Path from EMB 01/21 showed negative for pathologic antibody mediated rejection. Repeat biopsy on 02/25 showed no evidence of rejection. For immunosuppression, titrated to tacrolimus goal 10-12. At time of recent discharge she was on tacrolimus 1 mg BID, along with mycophenolate 720 mg BID. Volume status on admission 01/30-03/08 was maintained on Bumex 4mg daily as needed, dosed per weight. At discharge Bumex 4mg PO was held given RJ and euvolemia. Did not receive Bumex at [facility]. Last bed weight at [facility] on 04/10 was 151 (though with full bedding in bed). Last echo 03/13/2024, EF 55%, RVSP 25. RHC 04/02 demonstrated RA 0, RV 28/3, PCWP 8, PA /, CO/CI 5.32/3.09, PVR 195 dsc-5. PA sat 54%, FA 98%. EMB on 04/02 demonstrated no evidence of rejection. RHC 05/06 pending Immunosuppression: - Given history of likely tacro toxicity, tacro dose was slowly uptitrated during admission with goal tacro levels 8-10. - Tacro 2.5 mg morning/3 mg evening, 7.0 on 05/13 - M/Th tacro levels - Given significant pancytopenia during [facility] admission, MMF was held until stably no longer neutropenic and restarted on lower dose of 180 mg BID --> 360mg BID on 05/06 PM - Continues on Prednisone 5mg daily ID Prophylaxis: - Valtrex 500mg daily (post-HD on HD days) for HSV ppx - PO Letermovir for CMV PPX - H/h Pravastatin 10mg QD while admitted given concern for pancreatitis mediated - Atovaquone 1500 mg daily DCed on 05/06 - Posaconazole 300mg QD ppx held per ID given unclear indication and can worsen pancreatitis; ultimately DC'ed #RUQ/RLQ pain #Pancreatitis #Hx of abdominal infections #Superinfection (CoNS/MDR E. Coli) of RP/abdominal wall hematomas s/p IR drain placements Recent admission at [facility] (01/28 to 03/08) for +E.Coli infected RP/abdominal wall hematomas, treated with 3 IR drains, Ceftaz-Avibactam and Flagyl (d/c'd 03/16). On this admission, patient reported worsening diffuse abdominal tenderness worse in RUQ/RLQ. Workup notable for initial 03/11 CTAP demonstrating similar to prior 03/05 CTAP pancreatitis, ileus, with stable fluid collection and no new abdominal or pelvic abnormality. Repeat abdominal imaging on 03/18 CTAP notable for c/f hemorrhagic pancreatitis vs bleeding pseudoaneurysm (though reassuringly no active extravasation). Overall, suspect worsening pancreatitis as primary etiology of abdominal pain. MRCP(03/22/24) demonstrated persistent acute interstitial edematous pancreatitis. Dilated and irregular main pancreatic duct, new since January, may be related to pancreatitis. However underlying pancreatic neoplasm must be considered. Abdominal pain resolved during last week of February 2024 following aggressive antibiotic regimen. - GI to perform EUS/ERCP in 6-8 weeks from resolution of current episode to evaluate MRCP findings. Abdominal drains removed on 04/04/24- 04/05/24 once met criteria for removal of < 10cc output over 48 hours. - Pravastatin held due to concern for medication induced pancreatitis, DCed upon [facility] admission as was not getting - No abdominal pain, TBili WNL, Alk Phos mildly elevated, otherwise normal #Hx of Ileus #Nutrition #On tube feeding diet [employer] saw patient during recent admission and recommended thin liquids with chin tuck and regular solids. Permitted PO diet, dependent on TFs via NGT due to nausea which has slowly been improving - Check EKG re QTc if PRNs are needed - QTc 535ms on 04/12 - TFs now cycled on 05/07 PM #Anxiety In the setting of a prolonged hospitalization -Psych consulted - PRN atarax 25mg q 6hr - Lexapro 5mg daily - SW following - [facility] Psych consulted and following, stopped Lexapro 5mg daily, started Remeron 7.5mg QHS on 04/17 #Insomnia - Poor sleep, taking Melatonin 3mg PRN and Trazodone 25mg PRN - Remeron as above #AoCD #MATTHIAS #Jewish Last transfusion November 07, 2023 in the setting of her OHT. Hgb remains stable without transfusion. Iron studies demonstrated MATTHIAS thus given IV iron 200 mg x5 days (03/24-03/28). Repeat iron studies demonstrating fully repleted iron. Initiated on epoetin 4000U q14 days bumped to RETACRIT epoetin azalia-epbx 6000U three times weekly. Hemolysis labs (03/21/24) negative. - Monitoring H/H, steadily improving #B/l pleural effusions, s/p PleurX Previously had R pleural effusion s/p R thora (01/11) with pleurx placement on 01/16. Cap and drain MWF Last drained 75cc on 04/08 Patient developed chest pain 04/09 related to Pleurx drainage. Seen by thoracic team. No acute issues and assessed that pain was likely due to irritation from draining against stiff lungs. Instructed team to be careful with draining and to stop the drain at the earliest sign of pain from patient. - Patient declines Pleurx drainage, remains on RA - Surveillance CXR on 04/18 and again on 05/05 - Thoracics f/u appt on 05/23/24 re pleurex catheter removal plans Quality Clinical Documentation: Hyperphosphatemia (Present on Admission) . Treating . Phosphorus of 4.9 on 04/26/2024 Resolved: #Acute renal failure, multifactorial Baseline unclear, but has been as low as 0.5 in December 2023. Labs mid-February: Cr 2.50 BUN 116 Tacro 14.3. Overall, suspect intrinsic RJ 2/2 acute pancreatitis, tacro toxicity as the initial insult. Then likely component of cardiorenal given volume overload. Patient developed AMS, lethargy concerning for uremic encephalopathy on 03/19 and was transferred to MICU for urgent initiation of CLUTCH REBUILDER. Deemed too high risk to obtain renal biopsy. Patient had TDC placed on 03/19/24. - HD MWF now off - Hyperphosphatemia managed with 800mg of Renvela, Phos 4.4 on 05/08 and 4.9 on 05/10 - Track I/Os, daily weights - Cystatin C/ Cre on lyte panel improving - HOLD HD on 05/08, last session 05/06, line removal 05/10 at bedside #VRE bacteremia #MecA+ Staph epidermis bacteremia Unclear source of VRE bacteremia (Bcx 03/18). Patient with known pancreatitis and hx of multiple intra-abdominal infections (see below). Given multiple chronic drains/lines, also concerned about line/drain-associated infection. On, 03/22: Bcx growing staph epi and MeCA Treated with antibiotics guided by ID recommendations as below: - Linezolid 600 mg q12h (03/24 - 04/03) - Daptomycin 8 mg/kg q48hr, timed post-HD (03/19-03/24) - Ceftazidime-avibactam 1.25g q8hr (03/19-03/20, 03/21-03/25) - Metronidazole (last given 03/16, 03/18 -03/24) #History of Leukopenia #History of Neutropenia Most likely 2/2 to immunosuppressive meds iso RJ. CMV VL on 03/28 undetectable with next check scheduled for 04/12/24 GCSF given on 03/21/24 ANC<500 Recovered #Diarrhea Ongoing diarrhea since admission with periods of improvement as well as worsening. Extensive infectious workup performed on numerous dates remained negative. Stool pancreatic elastase resulted low, indicating component of exocrine pancreatic insufficiency (EPI) thus initiated on Creon on 04/02, which was switched to VIOKACE on 04/08. Multiple formulations of tube feeds trialed. - TF: [employer] Renal Support 1.8 - Diarrhea most likely multifactorial with significant contributions from EPI and prolonged antibiosis - No longer with diarrhea Assessment & Plan (05/14/2024 6:02 PM EST): #Hx of OHT #LVEF 55% (03/21/24) Prolonged hospitalization for advanced HF and OHT from 06/07/23-01/19/24, course with multiple complications. OHT performed 11/04/23. Path from EMB 01/21 showed negative for pathologic antibody mediated rejection. Repeat biopsy on 02/25 showed no evidence of rejection. For immunosuppression, titrated to tacrolimus goal 10-12. At time of recent discharge she was on tacrolimus 1 mg BID, along with mycophenolate 720 mg BID. Volume status on admission 01/30-03/08 was maintained on Bumex 4mg daily as needed, dosed per weight. At discharge Bumex 4mg PO was held given RJ and euvolemia. Did not receive Bumex at [facility]. Last bed weight at [facility] on 04/10 was 151 (though with full bedding in bed). Last echo 03/13/2024, EF 55%, RVSP 25. RHC 04/02 demonstrated RA 0, RV 28/3, PCWP 8, PA /, CO/CI 5.32/3.09, PVR 195 dsc-5. PA sat 54%, FA 98%. EMB on 04/02 demonstrated no evidence of rejection. RHC 05/06 pending Immunosuppression: - Given history of likely tacro toxicity, tacro dose was slowly uptitrated during admission with goal tacro levels 8-10. - Tacro 2.5 mg morning/3 mg evening, 8.2 on 05/08, 6.7 on 05/10 - M/Th tacro levels - Given significant pancytopenia during [facility] admission, MMF was held until stably no longer neutropenic and restarted on lower dose of 180 mg BID --> 360mg BID on 05/06 PM - Continues on Prednisone 5mg daily ID Prophylaxis: - Valtrex 500mg daily (post-HD on HD days) for HSV ppx - PO Letermovir for CMV PPX - H/h Pravastatin 10mg QD while admitted given concern for pancreatitis mediated - Atovaquone 1500 mg daily DCed on 05/06 - Posaconazole 300mg QD ppx held per ID given unclear indication and can worsen pancreatitis; ultimately DC'ed #RUQ/RLQ pain #Pancreatitis #Hx of abdominal infections #Superinfection (CoNS/MDR E. Coli) of RP/abdominal wall hematomas s/p IR drain placements Recent admission at [facility] (01/28 to 03/08) for +E.Coli infected RP/abdominal wall hematomas, treated with 3 IR drains, Ceftaz-Avibactam and Flagyl (d/c'd 03/16). On this admission, patient reported worsening diffuse abdominal tenderness worse in RUQ/RLQ. Workup notable for initial 03/11 CTAP demonstrating similar to prior 03/05 CTAP pancreatitis, ileus, with stable fluid collection and no new abdominal or pelvic abnormality. Repeat abdominal imaging on 03/18 CTAP notable for c/f hemorrhagic pancreatitis vs bleeding pseudoaneurysm (though reassuringly no active extravasation). Overall, suspect worsening pancreatitis as primary etiology of abdominal pain. MRCP(03/22/24) demonstrated persistent acute interstitial edematous pancreatitis. Dilated and irregular main pancreatic duct, new since January, may be related to pancreatitis. However underlying pancreatic neoplasm must be considered. Abdominal pain resolved during last week of February 2024 following aggressive antibiotic regimen. - GI to perform EUS/ERCP in 6-8 weeks from resolution of current episode to evaluate MRCP findings. Abdominal drains removed on 04/04/24- 04/05/24 once met criteria for removal of < 10cc output over 48 hours. - Pravastatin held due to concern for medication induced pancreatitis, DCed upon [facility] admission as was not getting - No abdominal pain, TBili WNL, Alk Phos mildly elevated, otherwise normal #Hx of Ileus #Nutrition #On tube feeding diet [employer] saw patient during recent admission and recommended thin liquids with chin tuck and regular solids. Permitted PO diet, dependent on TFs via NGT due to nausea which has slowly been improving - Check EKG re QTc if PRNs are needed - QTc 535ms on 04/12 - TFs now cycled on 211 PM #Anxiety In the setting of a prolonged hospitalization -Psych consulted - PRN atarax 25mg q 6hr - Lexapro 5mg daily - SW following - [facility] Psych consulted and following, stopped Lexapro 5mg daily, started Remeron 7.5mg QHS on 04/17 #Insomnia - Poor sleep, taking Melatonin 3mg PRN and Trazodone 25mg PRN - Remeron as above #AoCD #MATTHIAS #Jewish Last transfusion November 07, 2023 in the setting of her OHT. Hgb remains stable without transfusion. Iron studies demonstrated MATTHIAS thus given IV iron 200 mg x5 days (03/24-03/28). Repeat iron studies demonstrating fully repleted iron. Initiated on epoetin 4000U q14 days bumped to RETACRIT epoetin azalia-epbx 6000U three times weekly. Hemolysis labs (03/21/24) negative. - Monitoring H/H, steadily improving #B/l pleural effusions, s/p PleurX Previously had R pleural effusion s/p R thora (01/11) with pleurx placement on 01/16. Cap and drain MWF Last drained 75cc on 04/08 Patient developed chest pain 04/09 related to Pleurx drainage. Seen by thoracic team. No acute issues and assessed that pain was likely due to irritation from draining against stiff lungs. Instructed team to be careful with draining and to stop the drain at the earliest sign of pain from patient. - Patient declines Pleurx drainage, remains on RA - Surveillance CXR on 04/18 and again on 05/05 - Thoracics f/u appt on 05/23/24 re pleurex catheter removal plans Quality Clinical Documentation: Hyperphosphatemia (Present on Admission) . Treating . Phosphorus of 4.9 on 04/26/2024 Resolved: #Acute renal failure, multifactorial Baseline unclear, but has been as low as 0.5 in December 2023. Labs mid-February: Cr 2.50 BUN 116 Tacro 14.3. Overall, suspect intrinsic RJ 2/2 acute pancreatitis, tacro toxicity as the initial insult. Then likely component of cardiorenal given volume overload. Patient developed AMS, lethargy concerning for uremic encephalopathy on 03/19 and was transferred to MICU for urgent initiation of CLUTCH REBUILDER. Deemed too high risk to obtain renal biopsy. Patient had TDC placed on 03/19/24. - HD MWF now off - Hyperphosphatemia managed with 800mg of Renvela, Phos 4.4 on 05/08 and 4.9 on 05/10 - Track I/Os, daily weights - Cystatin C/ Cre on lyte panel improving - HOLD HD on 05/08, last session 05/06, line removal 05/10 at bedside #VRE bacteremia #MecA+ Staph epidermis bacteremia Unclear source of VRE bacteremia (Bcx 03/18). Patient with known pancreatitis and hx of multiple intra-abdominal infections (see below). Given multiple chronic drains/lines, also concerned about line/drain-associated infection. On, 03/22: Bcx growing staph epi and MeCA Treated with antibiotics guided by ID recommendations as below: - Linezolid 600 mg q12h (03/24 - 04/03) - Daptomycin 8 mg/kg q48hr, timed post-HD (03/19-03/24) - Ceftazidime-avibactam 1.25g q8hr (03/19-03/20, 03/21-03/25) - Metronidazole (last given 03/16, 03/18 -03/24) #History of Leukopenia #History of Neutropenia Most likely 2/2 to immunosuppressive meds iso RJ. CMV VL on 03/28 undetectable with next check scheduled for 04/12/24 GCSF given on 03/21/24 ANC<500 Recovered #Diarrhea Ongoing diarrhea since admission with periods of improvement as well as worsening. Extensive infectious workup performed on numerous dates remained negative. Stool pancreatic elastase resulted low, indicating component of exocrine pancreatic insufficiency (EPI) thus initiated on Creon on 04/02, which was switched to VIOKACE on 04/08. Multiple formulations of tube feeds trialed. - TF: [employer] Renal Support 1.8 - Diarrhea most likely multifactorial with significant contributions from EPI and prolonged antibiosis - No longer with diarrhea Assessment & Plan (05/13/2024 12:15 PM EST): #Hx of OHT #LVEF 55% (03/21/24) Prolonged hospitalization for advanced HF and OHT from 06/07/23-01/19/24, course with multiple complications. OHT performed 11/04/23. Path from EMB 01/21 showed negative for pathologic antibody mediated rejection. Repeat biopsy on 02/25 showed no evidence of rejection. For immunosuppression, titrated to tacrolimus goal 10-12. At time of recent discharge she was on tacrolimus 1 mg BID, along with mycophenolate 720 mg BID. Volume status on admission 01/30-03/08 was maintained on Bumex 4mg daily as needed, dosed per weight. At discharge Bumex 4mg PO was held given RJ and euvolemia. Did not receive Bumex at [facility]. Last bed weight at [facility] on 04/10 was 151 (though with full bedding in bed). Last echo 03/13/2024, EF 55%, RVSP 25. RHC 04/02 demonstrated RA 0, RV 28/3, PCWP 8, PA /, CO/CI 5.32/3.09, PVR 195 dsc-5. PA sat 54%, FA 98%. EMB on 04/02 demonstrated no evidence of rejection. RHC 05/06 pending Immunosuppression: - Given history of likely tacro toxicity, tacro dose was slowly uptitrated during admission with goal tacro levels 8-10. - Tacro 2.5 mg morning/3 mg evening, 8.2 on 05/08, 6.7 on 05/10 - MWF tacro levels - Given significant pancytopenia during [facility] admission, MMF was held until stably no longer neutropenic and restarted on lower dose of 180 mg BID --> 360mg BID on 05/06 PM - Continues on Prednisone 5mg daily ID Prophylaxis: - Valtrex 500mg daily (post-HD on HD days) for HSV ppx - PO Letermovir for CMV PPX - H/h Pravastatin 10mg QD while admitted given concern for pancreatitis mediated - Atovaquone 1500 mg daily DCed on 05/06 - Posaconazole 300mg QD ppx held per ID given unclear indication and can worsen pancreatitis; ultimately DC'ed #RUQ/RLQ pain #Pancreatitis #Hx of abdominal infections #Superinfection (CoNS/MDR E. Coli) of RP/abdominal wall hematomas s/p IR drain placements Recent admission at [facility] (01/28 to 03/08) for +E.Coli infected RP/abdominal wall hematomas, treated with 3 IR drains, Ceftaz-Avibactam and Flagyl (d/c'd 03/16). On this admission, patient reported worsening diffuse abdominal tenderness worse in RUQ/RLQ. Workup notable for initial 03/11 CTAP demonstrating similar to prior 03/05 CTAP pancreatitis, ileus, with stable fluid collection and no new abdominal or pelvic abnormality. Repeat abdominal imaging on 03/18 CTAP notable for c/f hemorrhagic pancreatitis vs bleeding pseudoaneurysm (though reassuringly no active extravasation). Overall, suspect worsening pancreatitis as primary etiology of abdominal pain. MRCP(03/22/24) demonstrated persistent acute interstitial edematous pancreatitis. Dilated and irregular main pancreatic duct, new since January, may be related to pancreatitis. However underlying pancreatic neoplasm must be considered. Abdominal pain resolved during last week of February 2024 following aggressive antibiotic regimen. - GI to perform EUS/ERCP in 6-8 weeks from resolution of current episode to evaluate MRCP findings. Abdominal drains removed on 04/04/24- 04/05/24 once met criteria for removal of < 10cc output over 48 hours. - Pravastatin held due to concern for medication induced pancreatitis, DCed upon [facility] admission as was not getting - No abdominal pain, TBili WNL, Alk Phos mildly elevated, otherwise normal #Hx of Ileus #Nutrition #On tube feeding diet [employer] saw patient during recent admission and recommended thin liquids with chin tuck and regular solids. Permitted PO diet, dependent on TFs via NGT due to nausea which has slowly been improving - Check EKG re QTc if PRNs are needed - QTc 535ms on 04/12 - TFs now cycled on 05/07 PM #Anxiety In the setting of a prolonged hospitalization -Psych consulted - PRN atarax 25mg q 6hr - Lexapro 5mg daily - SW following - [facility] Psych consulted and following, stopped Lexapro 5mg daily, started Remeron 7.5mg QHS on 04/17 #Insomnia - Poor sleep, taking Melatonin 3mg PRN and Trazodone 25mg PRN - Remeron as above #AoCD #MATTHIAS #Jewish Last transfusion November 07, 2023 in the setting of her OHT. Hgb remains stable without transfusion. Iron studies demonstrated MATTHIAS thus given IV iron 200 mg x5 days (03/24-03/28). Repeat iron studies demonstrating fully repleted iron. Initiated on epoetin 4000U q14 days bumped to RETACRIT epoetin azalia-epbx 6000U three times weekly. Hemolysis labs (03/21/24) negative. - Monitoring H/H, steadily improving #B/l pleural effusions, s/p PleurX Previously had R pleural effusion s/p R thora (01/11) with pleurx placement on 01/16. Cap and drain MWF Last drained 75cc on 04/08 Patient developed chest pain 04/09 related to Pleurx drainage. Seen by thoracic team. No acute issues and assessed that pain was likely due to irritation from draining against stiff lungs. Instructed team to be careful with draining and to stop the drain at the earliest sign of pain from patient. - Patient declines Pleurx drainage, remains on RA - Surveillance CXR on 04/18 and again on 05/05 - Transplant team planning for thoracics f/u for removal, no residual effusion ESRD Now has renal recovery Tunneled hd removed on 05/10 Monitor labs twice weekly Appreciate renal input Stage 4 ckd Quality Clinical Documentation: Hyperphosphatemia (Present on Admission) . Treating . Phosphorus of 4.9 on 04/26/2024 Resolved: #VRE bacteremia #MecA+ Staph epidermis bacteremia Unclear source of VRE bacteremia (Bcx 03/18). Patient with known pancreatitis and hx of multiple intra-abdominal infections (see below). Given multiple chronic drains/lines, also concerned about line/drain-associated infection. On, 12/27: Bcx growing staph epi and MeCA Treated with antibiotics guided by ID recommendations as below: - Linezolid 600 mg q12h (03/24 - 04/03) - Daptomycin 8 mg/kg q48hr, timed post-HD (03/19-03/24) - Ceftazidime-avibactam 1.25g q8hr (03/19-03/20, 03/21-03/25) - Metronidazole (last given 03/16, 03/18 -03/24) #History of Leukopenia #History of Neutropenia Most likely 04/28 to immunosuppressive meds iso RJ. CMV VL on 03/28 undetectable with next check scheduled for 04/12/24 GCSF given on 03/21/24 ANC<500 This has resolved Normal wbc on 05/13 and has been consistently #Diarrhea Ongoing diarrhea since admission with periods of improvement as well as worsening. Extensive infectious workup performed on numerous dates remained negative. Stool pancreatic elastase resulted low, indicating component of exocrine pancreatic insufficiency (EPI) thus initiated on Creon on 04/02, which was switched to VIOKACE on 04/08. Multiple formulations of tube feeds trialed. - TF: [employer] Renal Support 1.8 - Diarrhea most likely multifactorial with significant contributions from EPI and prolonged antibiosis - No longer with diarrhea Assessment & Plan (05/12/2024 12:45 PM EST): #Hx of OHT #LVEF 55% (03/21/24) Prolonged hospitalization for advanced HF and OHT from 06/07/23-01/19/24, course with multiple complications. OHT performed 11/04/23. Path from EMB 01/21 showed negative for pathologic antibody mediated rejection. Repeat biopsy on 02/25 showed no evidence of rejection. For immunosuppression, titrated to tacrolimus goal 10-12. At time of recent discharge she was on tacrolimus 1 mg BID, along with mycophenolate 720 mg BID. Volume status on admission 01/30-03/08 was maintained on Bumex 4mg daily as needed, dosed per weight. At discharge Bumex 4mg PO was held given RJ and euvolemia. Did not receive Bumex at [facility]. Last bed weight at [facility] on 04/10 was 151 (though with full bedding in bed). Last echo 03/13/2024, EF 55%, RVSP 25. RHC 04/02 demonstrated RA 0, RV 28/3, PCWP 8, PA /, CO/CI 5.32/3.09, PVR 195 dsc-5. PA sat 54%, FA 98%. EMB on 04/02 demonstrated no evidence of rejection. RHC 05/06 pending Immunosuppression: - Given history of likely tacro toxicity, tacro dose was slowly uptitrated during admission with goal tacro levels 8-10. - Tacro 2.5 mg morning/3 mg evening, 8.2 on 05/08, 6.7 on 05/10 - MWF tacro levels - Given significant pancytopenia during [facility] admission, MMF was held until stably no longer neutropenic and restarted on lower dose of 180 mg BID --> 360mg BID on 05/06 PM - Continues on Prednisone 5mg daily ID Prophylaxis: - Valtrex 500mg daily (post-HD on HD days) for HSV ppx - PO Letermovir for CMV PPX - H/h Pravastatin 10mg QD while admitted given concern for pancreatitis mediated - Atovaquone 1500 mg daily DCed on 05/06 - Posaconazole 300mg QD ppx held per ID given unclear indication and can worsen pancreatitis; ultimately DC'ed #RUQ/RLQ pain #Pancreatitis #Hx of abdominal infections #Superinfection (CoNS/MDR E. Coli) of RP/abdominal wall hematomas s/p IR drain placements Recent admission at [facility] (01/28 to 03/08) for +E.Coli infected RP/abdominal wall hematomas, treated with 3 IR drains, Ceftaz-Avibactam and Flagyl (d/c'd 03/16). On this admission, patient reported worsening diffuse abdominal tenderness worse in RUQ/RLQ. Workup notable for initial 03/11 CTAP demonstrating similar to prior 03/05 CTAP pancreatitis, ileus, with stable fluid collection and no new abdominal or pelvic abnormality. Repeat abdominal imaging on 03/18 CTAP notable for c/f hemorrhagic pancreatitis vs bleeding pseudoaneurysm (though reassuringly no active extravasation). Overall, suspect worsening pancreatitis as primary etiology of abdominal pain. MRCP(03/22/24) demonstrated persistent acute interstitial edematous pancreatitis. Dilated and irregular main pancreatic duct, new since January, may be related to pancreatitis. However underlying pancreatic neoplasm must be considered. Abdominal pain resolved during last week of February 2024 following aggressive antibiotic regimen. - GI to perform EUS/ERCP in 6-8 weeks from resolution of current episode to evaluate MRCP findings. Abdominal drains removed on 04/04/24- 04/05/24 once met criteria for removal of < 10cc output over 48 hours. - Pravastatin held due to concern for medication induced pancreatitis, DCed upon [facility] admission as was not getting - No abdominal pain, TBili WNL, Alk Phos mildly elevated, otherwise normal #Hx of Ileus #Nutrition #On tube feeding diet [employer] saw patient during recent admission and recommended thin liquids with chin tuck and regular solids. Permitted PO diet, dependent on TFs via NGT due to nausea which has slowly been improving - Check EKG re QTc if PRNs are needed - QTc 535ms on 04/12 - TFs now cycled on 211 PM #Anxiety In the setting of a prolonged hospitalization -Psych consulted - PRN atarax 25mg q 6hr - Lexapro 5mg daily - SW following - [facility] Psych consulted and following, stopped Lexapro 5mg daily, started Remeron 7.5mg QHS on 04/17 #Insomnia - Poor sleep, taking Melatonin 3mg PRN and Trazodone 25mg PRN - Remeron as above #AoCD #MATTHIAS #Jewish Last transfusion November 07, 2023 in the setting of her OHT. Hgb remains stable without transfusion. Iron studies demonstrated MATTHIAS thus given IV iron 200 mg x5 days (03/24-03/28). Repeat iron studies demonstrating fully repleted iron. Initiated on epoetin 4000U q14 days bumped to RETACRIT epoetin azalia-epbx 6000U three times weekly. Hemolysis labs (03/21/24) negative. - Monitoring H/H, steadily improving #B/l pleural effusions, s/p PleurX Previously had R pleural effusion s/p R thora (01/11) with pleurx placement on 01/16. Cap and drain MWF Last drained 75cc on 04/08 Patient developed chest pain 04/09 related to Pleurx drainage. Seen by thoracic team. No acute issues and assessed that pain was likely due to irritation from draining against stiff lungs. Instructed team to be careful with draining and to stop the drain at the earliest sign of pain from patient. - Patient declines Pleurx drainage, remains on RA - Surveillance CXR on 04/18 and again on 05/05 - Transplant team planning for thoracics f/u for removal, no residual effusion ESRD Now has renal recovery Tunneled hd removed on 05/10 Monitor labs twice weekly Appreciate renal input Stage 4 ckd Quality Clinical Documentation: Hyperphosphatemia (Present on Admission) . Treating . Phosphorus of 4.9 on 04/26/2024 Resolved: #VRE bacteremia #MecA+ Staph epidermis bacteremia Unclear source of VRE bacteremia (Bcx 03/18). Patient with known pancreatitis and hx of multiple intra-abdominal infections (see below). Given multiple chronic drains/lines, also concerned about line/drain-associated infection. On, 03/22: Bcx growing staph epi and MeCA Treated with antibiotics guided by ID recommendations as below: - Linezolid 600 mg q12h (03/24 - 04/03) - Daptomycin 8 mg/kg q48hr, timed post-HD (03/19-03/24) - Ceftazidime-avibactam 1.25g q8hr (03/19-03/20, 03/21-03/25) - Metronidazole (last given 03/16, 03/18 -03/24) #History of Leukopenia #History of Neutropenia Most likely 2/2 to immunosuppressive meds iso RJ. CMV VL on 03/28 undetectable with next check scheduled for 04/12/24 GCSF given on 03/21/24 ANC<500 #Diarrhea Ongoing diarrhea since admission with periods of improvement as well as worsening. Extensive infectious workup performed on numerous dates remained negative. Stool pancreatic elastase resulted low, indicating component of exocrine pancreatic insufficiency (EPI) thus initiated on Creon on 04/02, which was switched to VIOKACE on 04/08. Multiple formulations of tube feeds trialed. - TF: [facility] Renal Support 1.8 - Diarrhea most likely multifactorial with significant contributions from EPI and prolonged antibiosis - No longer with diarrhea Assessment & Plan (05/11/2024 1:39 PM EST): #Hx of OHT #LVEF 55% (03/21/24) Prolonged hospitalization for advanced HF and OHT from 06/07/23-01/19/24, course with multiple complications. OHT performed 8/10/24. Path from EMB 01/21 showed negative for pathologic antibody mediated rejection. Repeat biopsy on 02/25 showed no evidence of rejection. For immunosuppression, titrated to tacrolimus goal 10-12. At time of recent discharge she was on tacrolimus 1 mg BID, along with mycophenolate 720 mg BID. Volume status on admission 01/30-03/08 was maintained on Bumex 4mg daily as needed, dosed per weight. At discharge Bumex 4mg PO was held given RJ and euvolemia. Did not receive Bumex at [facility]. Last bed weight at [facility] on 04/10 was 151 (though with full bedding in bed). Last echo 03/13/2024, EF 55%, RVSP 25. RHC 04/02 demonstrated RA 0, RV 28/3, PCWP 8, PA /, CO/CI 5.32/3.09, PVR 195 dsc-5. PA sat 54%, FA 98%. EMB on 04/02 demonstrated no evidence of rejection. RHC 05/06 pending Immunosuppression: - Given history of likely tacro toxicity, tacro dose was slowly uptitrated during admission with goal tacro levels 8-10. - Tacro 2.5 mg morning/3 mg evening, 8.2 on 05/08, 6.7 on 05/10 - MWF tacro levels - Given significant pancytopenia during [facility] admission, MMF was held until stably no longer neutropenic and restarted on lower dose of 180 mg BID --> 360mg BID on 05/06 PM - Continues on Prednisone 5mg daily ID Prophylaxis: - Valtrex 500mg daily (post-HD on HD days) for HSV ppx - PO Letermovir for CMV PPX - H/h Pravastatin 10mg QD while admitted given concern for pancreatitis mediated - Atovaquone 1500 mg daily DCed on 05/06 - Posaconazole 300mg QD ppx held per ID given unclear indication and can worsen pancreatitis; ultimately DC'ed #RUQ/RLQ pain #Pancreatitis #Hx of abdominal infections #Superinfection (CoNS/MDR E. Coli) of RP/abdominal wall hematomas s/p IR drain placements Recent admission at [facility] (01/28 to 03/08) for +E.Coli infected RP/abdominal wall hematomas, treated with 3 IR drains, Ceftaz-Avibactam and Flagyl (d/c'd 03/16). On this admission, patient reported worsening diffuse abdominal tenderness worse in RUQ/RLQ. Workup notable for initial 03/11 CTAP demonstrating similar to prior 03/05 CTAP pancreatitis, ileus, with stable fluid collection and no new abdominal or pelvic abnormality. Repeat abdominal imaging on 03/18 CTAP notable for c/f hemorrhagic pancreatitis vs bleeding pseudoaneurysm (though reassuringly no active extravasation). Overall, suspect worsening pancreatitis as primary etiology of abdominal pain. MRCP(03/22/24) demonstrated persistent acute interstitial edematous pancreatitis. Dilated and irregular main pancreatic duct, new since January, may be related to pancreatitis. However underlying pancreatic neoplasm must be considered. Abdominal pain resolved during last week of February 2024 following aggressive antibiotic regimen. - GI to perform EUS/ERCP in 6-8 weeks from resolution of current episode to evaluate MRCP findings. Abdominal drains removed on 04/04/24- 04/05/24 once met criteria for removal of < 10cc output over 48 hours. - Pravastatin held due to concern for medication induced pancreatitis, DCed upon [facility] admission as was not getting - No abdominal pain, TBili WNL, Alk Phos mildly elevated, otherwise normal #Hx of Ileus #Nutrition #On tube feeding diet [employer] saw patient during recent admission and recommended thin liquids with chin tuck and regular solids. Permitted PO diet, dependent on TFs via NGT due to nausea which has slowly been improving - Check EKG re QTc if PRNs are needed - QTc 535ms on 04/12 - TFs now cycled on 05/07 PM #Anxiety In the setting of a prolonged hospitalization -Psych consulted - PRN atarax 25mg q 6hr - Lexapro 5mg daily - SW following - [facility] Psych consulted and following, stopped Lexapro 5mg daily, started Remeron 7.5mg QHS on 04/17 #Insomnia - Poor sleep, taking Melatonin 3mg PRN and Trazodone 25mg PRN - Remeron as above #AoCD #MATTHIAS #Jewish Last transfusion November 07, 2023 in the setting of her OHT. Hgb remains stable without transfusion. Iron studies demonstrated MATTHIAS thus given IV iron 200 mg x5 days (03/24-03/28). Repeat iron studies demonstrating fully repleted iron. Initiated on epoetin 4000U q14 days bumped to RETACRIT epoetin azalia-epbx 6000U three times weekly. Hemolysis labs (03/21/24) negative. - Monitoring H/H, steadily improving #B/l pleural effusions, s/p PleurX Previously had R pleural effusion s/p R thora (01/11) with pleurx placement on 01/16. Cap and drain MWF Last drained 75cc on 04/08 Patient developed chest pain 04/09 related to Pleurx drainage. Seen by thoracic team. No acute issues and assessed that pain was likely due to irritation from draining against stiff lungs. Instructed team to be careful with draining and to stop the drain at the earliest sign of pain from patient. - Patient declines Pleurx drainage, remains on RA - Surveillance CXR on 04/18 and again on 05/05 - Transplant team planning for thoracics f/u for removal, no residual effusion Quality Clinical Documentation: Hyperphosphatemia (Present on Admission) . Treating . Phosphorus of 4.9 on 04/26/2024 Resolved: #VRE bacteremia #MecA+ Staph epidermis bacteremia Unclear source of VRE bacteremia (Bcx 03/18). Patient with known pancreatitis and hx of multiple intra-abdominal infections (see below). Given multiple chronic drains/lines, also concerned about line/drain-associated infection. On, 03/22: Bcx growing staph epi and MeCA Treated with antibiotics guided by ID recommendations as below: - Linezolid 600 mg q12h (03/24 - 04/03) - Daptomycin 8 mg/kg q48hr, timed post-HD (03/19-03/24) - Ceftazidime-avibactam 1.25g q8hr (03/19-03/20, 03/21-03/25) - Metronidazole (last given 03/16, 03/18 -03/24) #History of Leukopenia #History of Neutropenia Most likely 2/2 to immunosuppressive meds iso RJ. CMV VL on 03/28 undetectable with next check scheduled for 04/12/24 GCSF given on 03/21/24 ANC<500 #Diarrhea Ongoing diarrhea since admission with periods of improvement as well as worsening. Extensive infectious workup performed on numerous dates remained negative. Stool pancreatic elastase resulted low, indicating component of exocrine pancreatic insufficiency (EPI) thus initiated on Creon on 04/02, which was switched to VIOKACE on 04/08. Multiple formulations of tube feeds trialed. - TF: [employer] Renal Support 1.8 - Diarrhea most likely multifactorial with significant contributions from EPI and prolonged antibiosis - No longer with diarrhea Assessment & Plan (05/10/2024 5:37 PM EST): #Hx of OHT #LVEF 55% (03/21/24) Prolonged hospitalization for advanced HF and OHT from 06/07/23-01/19/24, course with multiple complications. OHT performed 11/04/23. Path from EMB 01/21 showed negative for pathologic antibody mediated rejection. Repeat biopsy on 02/25 showed no evidence of rejection. For immunosuppression, titrated to tacrolimus goal 10-12. At time of recent discharge she was on tacrolimus 1 mg BID, along with mycophenolate 720 mg BID. Volume status on admission 01/30-03/08 was maintained on Bumex 4mg daily as needed, dosed per weight. At discharge Bumex 4mg PO was held given RJ and euvolemia. Did not receive Bumex at [facility]. Last bed weight at [facility] on 04/10 was 151 (though with full bedding in bed). Last echo 03/13/2024, EF 55%, RVSP 25. RHC 04/02 demonstrated RA 0, RV 28/3, PCWP 8, PA /, CO/CI 5.32/3.09, PVR 195 dsc-5. PA sat 54%, FA 98%. EMB on 04/02 demonstrated no evidence of rejection. RHC 05/06 pending Immunosuppression: - Given history of likely tacro toxicity, tacro dose was slowly uptitrated during admission with goal tacro levels 8-10. - Tacro 2.5 mg morning/3 mg evening, 8.2 on 05/08, 6.7 on 05/10 - MWF tacro levels - Given significant pancytopenia during [facility] admission, MMF was held until stably no longer neutropenic and restarted on lower dose of 180 mg BID --> 360mg BID on 05/06 PM - Continues on Prednisone 5mg daily ID Prophylaxis: - Valtrex 500mg daily (post-HD on HD days) for HSV ppx - PO Letermovir for CMV PPX - H/h Pravastatin 10mg QD while admitted given concern for pancreatitis mediated - Atovaquone 1500 mg daily DCed on 05/06 - Posaconazole 300mg QD ppx held per ID given unclear indication and can worsen pancreatitis; ultimately DC'ed #RUQ/RLQ pain #Pancreatitis #Hx of abdominal infections #Superinfection (CoNS/MDR E. Coli) of RP/abdominal wall hematomas s/p IR drain placements Recent admission at [facility] (01/28 to 03/08) for +E.Coli infected RP/abdominal wall hematomas, treated with 3 IR drains, Ceftaz-Avibactam and Flagyl (d/c'd 03/16). On this admission, patient reported worsening diffuse abdominal tenderness worse in RUQ/RLQ. Workup notable for initial 03/11 CTAP demonstrating similar to prior 03/05 CTAP pancreatitis, ileus, with stable fluid collection and no new abdominal or pelvic abnormality. Repeat abdominal imaging on 03/18 CTAP notable for c/f hemorrhagic pancreatitis vs bleeding pseudoaneurysm (though reassuringly no active extravasation). Overall, suspect worsening pancreatitis as primary etiology of abdominal pain. MRCP(03/22/24) demonstrated persistent acute interstitial edematous pancreatitis. Dilated and irregular main pancreatic duct, new since January, may be related to pancreatitis. However underlying pancreatic neoplasm must be considered. Abdominal pain resolved during last week of February 2024 following aggressive antibiotic regimen. - GI to perform EUS/ERCP in 6-8 weeks from resolution of current episode to evaluate MRCP findings. Abdominal drains removed on 04/04/24- 04/05/24 once met criteria for removal of < 10cc output over 48 hours. - Pravastatin held due to concern for medication induced pancreatitis, DCed upon [facility] admission as was not getting - No abdominal pain, TBili WNL, Alk Phos mildly elevated, otherwise normal #Hx of Ileus #Nutrition #On tube feeding diet [employer] saw patient during recent admission and recommended thin liquids with chin tuck and regular solids. Permitted PO diet, dependent on TFs via NGT due to nausea which has slowly been improving - Check EKG re QTc if PRNs are needed - QTc 535ms on 04/12 - TFs now cycled on 05/07 PM #Anxiety In the setting of a prolonged hospitalization -Psych consulted - PRN atarax 25mg q 6hr - Lexapro 5mg daily - SW following - [facility] Psych consulted and following, stopped Lexapro 5mg daily, started Remeron 7.5mg QHS on 04/17 #Insomnia - Poor sleep, taking Melatonin 3mg PRN and Trazodone 25mg PRN - Remeron as above #AoCD #MATTHIAS #Jewish Last transfusion November 07, 2023 in the setting of her OHT. Hgb remains stable without transfusion. Iron studies demonstrated MATTHIAS thus given IV iron 200 mg x5 days (03/24-03/28). Repeat iron studies demonstrating fully repleted iron. Initiated on epoetin 4000U q14 days bumped to RETACRIT epoetin azalia-epbx 6000U three times weekly. Hemolysis labs (03/21/24) negative. - Monitoring H/H, steadily improving #B/l pleural effusions, s/p PleurX Previously had R pleural effusion s/p R thora (01/11) with pleurx placement on 01/16. Cap and drain MWF Last drained 75cc on 04/08 Patient developed chest pain 04/09 related to Pleurx drainage. Seen by thoracic team. No acute issues and assessed that pain was likely due to irritation from draining against stiff lungs. Instructed team to be careful with draining and to stop the drain at the earliest sign of pain from patient. - Patient declines Pleurx drainage, remains on RA - Surveillance CXR on 04/18 and again on 05/05 - Transplant team planning for thoracics f/u for removal, no residual effusion Quality Clinical Documentation: Hyperphosphatemia (Present on Admission) . Treating . Phosphorus of 4.9 on 04/26/2024 Resolved: #VRE bacteremia #MecA+ Staph epidermis bacteremia Unclear source of VRE bacteremia (Bcx 03/18). Patient with known pancreatitis and hx of multiple intra-abdominal infections (see below). Given multiple chronic drains/lines, also concerned about line/drain-associated infection. On, 03/22: Bcx growing staph epi and MeCA Treated with antibiotics guided by ID recommendations as below: - Linezolid 600 mg q12h (03/24 - 04/03) - Daptomycin 8 mg/kg q48hr, timed post-HD (03/19-03/24) - Ceftazidime-avibactam 1.25g q8hr (03/19-03/20, 03/21-03/25) - Metronidazole (last given 03/16, 03/18 -03/24) #History of Leukopenia #History of Neutropenia Most likely 2/2 to immunosuppressive meds iso RJ. CMV VL on 03/28 undetectable with next check scheduled for 04/12/24 GCSF given on 03/21/24 ANC<500 #Diarrhea Ongoing diarrhea since admission with periods of improvement as well as worsening. Extensive infectious workup performed on numerous dates remained negative. Stool pancreatic elastase resulted low, indicating component of exocrine pancreatic insufficiency (EPI) thus initiated on Creon on 04/02, which was switched to VIOKACE on 04/08. Multiple formulations of tube feeds trialed. - TF: Ruth [employer] Renal Support 1.8 - Diarrhea most likely multifactorial with significant contributions from EPI and prolonged antibiosis - No longer with diarrhea Assessment & Plan (05/09/2024 4:51 PM EST): #Hx of OHT #LVEF 55% (03/21/24) Prolonged hospitalization for advanced HF and OHT from 06/07/23-01/19/24, course with multiple complications. OHT performed 11/04/23. Path from EMB 01/21 showed negative for pathologic antibody mediated rejection. Repeat biopsy on 02/25 showed no evidence of rejection. For immunosuppression, titrated to tacrolimus goal 10-12. At time of recent discharge she was on tacrolimus 1 mg BID, along with mycophenolate 720 mg BID. Volume status on admission 01/30-03/08 was maintained on Bumex 4mg daily as needed, dosed per weight. At discharge Bumex 4mg PO was held given RJ and euvolemia. Did not receive Bumex at [facility]. Last bed weight at [facility] on 04/10 was 151 (though with full bedding in bed). Last echo 03/13/2024, EF 55%, RVSP 25. RHC 04/02 demonstrated RA 0, RV 28/3, PCWP 8, PA , CO/CI 5.32/3.09, PVR 195 dsc-5. PA sat 54%, FA 98%. EMB on 04/02 demonstrated no evidence of rejection. RHC 05/06 pending Immunosuppression: - Given history of likely tacro toxicity, tacro dose was slowly uptitrated during admission with goal tacro levels 8-10. - Tacro 2.5 mg morning/3 mg evening, 82 on 05/08 - F tacro levels - Given significant pancytopenia during [facility] admission, MMF was held until stably no longer neutropenic and restarted on lower dose of 180 mg BID --> 360mg BID on 05/06 PM - Continues on Prednisone 5mg daily ID Prophylaxis: - Valtrex 500mg daily (post-HD on HD days) for HSV ppx - PO Letermovir for CMV PPX - H/h Pravastatin 10mg QD while admitted given concern for pancreatitis mediated - Atovaquone 1500 mg daily DCed on 05/06 - Posaconazole 300mg QD ppx held per ID given unclear indication and can worsen pancreatitis; ultimately DC'ed #RUQ/RLQ pain #Pancreatitis #Hx of abdominal infections #Superinfection (CoNS/MDR E. Coli) of RP/abdominal wall hematomas s/p IR drain placements Recent admission at [facility] (01/28 to 03/08) for +E.Coli infected RP/abdominal wall hematomas, treated with 3 IR drains, Ceftaz-Avibactam and Flagyl (d/c'd 03/16). On this admission, patient reported worsening diffuse abdominal tenderness worse in RUQ/RLQ. Workup notable for initial 03/11 CTAP demonstrating similar to prior 03/05 CTAP pancreatitis, ileus, with stable fluid collection and no new abdominal or pelvic abnormality. Repeat abdominal imaging on 03/18 CTAP notable for c/f hemorrhagic pancreatitis vs bleeding pseudoaneurysm (though reassuringly no active extravasation). Overall, suspect worsening pancreatitis as primary etiology of abdominal pain. MRCP(03/22/24) demonstrated persistent acute interstitial edematous pancreatitis. Dilated and irregular main pancreatic duct, new since January, may be related to pancreatitis. However underlying pancreatic neoplasm must be considered. Abdominal pain resolved during last week of February 2024 following aggressive antibiotic regimen. - GI to perform EUS/ERCP in 6-8 weeks from resolution of current episode to evaluate MRCP findings. Abdominal drains removed on 04/04/24- 04/05/24 once met criteria for removal of < 10cc output over 48 hours. - Pravastatin held due to concern for medication induced pancreatitis, DCed upon [facility] admission as was not getting - No abdominal pain, TBili WNL, Alk Phos mildly elevated, otherwise normal #Hx of Ileus #Nutrition #On tube feeding diet [employer] saw patient during recent admission and recommended thin liquids with chin tuck and regular solids. Permitted PO diet, dependent on TFs via NGT due to nausea which has slowly been improving - Check EKG re QTc if PRNs are needed - QTc 535ms on 04/12 - TFs now cycled on 05/07 PM #Anxiety In the setting of a prolonged hospitalization -Psych consulted - PRN atarax 25mg q 6hr - Lexapro 5mg daily - SW following - [facility] Psych consulted and following, stopped Lexapro 5mg daily, started Remeron 7.5mg QHS on 04/17 #Insomnia - Poor sleep, taking Melatonin 3mg PRN and Trazodone 25mg PRN - Remeron as above #AoCD #MATTHIAS #Jewish Last transfusion November 07, 2023 in the setting of her OHT. Hgb remains stable without transfusion. Iron studies demonstrated MATTHIAS thus given IV iron 200 mg x5 days (03/24-03/28). Repeat iron studies demonstrating fully repleted iron. Initiated on epoetin 4000U q14 days bumped to RETACRIT epoetin azalia-epbx 6000U three times weekly. Hemolysis labs (03/21/24) negative. - Monitoring H/H, steadily improving #B/l pleural effusions, s/p PleurX Previously had R pleural effusion s/p R thora (01/11) with pleurx placement on 01/16. Cap and drain MWF Last drained 75cc on 04/08 Patient developed chest pain 04/09 related to Pleurx drainage. Seen by thoracic team. No acute issues and assessed that pain was likely due to irritation from draining against stiff lungs. Instructed team to be careful with draining and to stop the drain at the earliest sign of pain from patient. - Patient declines Pleurx drainage, remains on RA - Surveillance CXR on 04/18 and again on 05/05 - Transplant team planning for thoracics f/u for removal, no residual effusion Quality Clinical Documentation: Hyperphosphatemia (Present on Admission) . Treating . Phosphorus of 4.9 on 04/26/2024 Resolved: #VRE bacteremia #MecA+ Staph epidermis bacteremia Unclear source of VRE bacteremia (Bcx 03/18). Patient with known pancreatitis and hx of multiple intra-abdominal infections (see below). Given multiple chronic drains/lines, also concerned about line/drain-associated infection. On, 03/22: Bcx growing staph epi and MeCA Treated with antibiotics guided by ID recommendations as below: - Linezolid 600 mg q12h (03/24 - 04/03) - Daptomycin 8 mg/kg q48hr, timed post-HD (03/19-03/24) - Ceftazidime-avibactam 1.25g q8hr (03/19-03/20, 03/21-03/25) - Metronidazole (last given 03/16, 03/18 -03/24) #History of Leukopenia #History of Neutropenia Most likely 2/2 to immunosuppressive meds iso RJ. CMV VL on 03/28 undetectable with next check scheduled for 04/12/24 GCSF given on 03/21/24 ANC<500 #Diarrhea Ongoing diarrhea since admission with periods of improvement as well as worsening. Extensive infectious workup performed on numerous dates remained negative. Stool pancreatic elastase resulted low, indicating component of exocrine pancreatic insufficiency (EPI) thus initiated on Creon on 04/02, which was switched to VIOKACE on 04/08. Multiple formulations of tube feeds trialed. - TF: [facility] Renal Support 1.8 - Diarrhea most likely multifactorial with significant contributions from EPI and prolonged antibiosis - No longer with diarrhea Assessment & Plan (05/08/2024 8:08 PM EST): #Hx of OHT #LVEF 55% (03/21/24) Prolonged hospitalization for advanced HF and OHT from 06/07/23-01/19/24, course with multiple complications. OHT performed 11/04/23. Path from EMB 01/21 showed negative for pathologic antibody mediated rejection. Repeat biopsy on 02/25 showed no evidence of rejection. For immunosuppression, titrated to tacrolimus goal -. At time of recent discharge she was on tacrolimus 1 mg BID, along with mycophenolate 720 mg BID. Volume status on admission 01/30-03/08 was maintained on Bumex 4mg daily as needed, dosed per weight. At discharge Bumex 4mg PO was held given RJ and euvolemia. Did not receive Bumex at [facility]. Last bed weight at [facility] on 04/10 was 151 (though with full bedding in bed). Last echo 03/13/2024, EF 55%, RVSP 25. RHC 04/02 demonstrated RA 0, RV 28/3, PCWP 8, PA /, CO/CI 5.32/3.09, PVR 195 dsc-5. PA sat 54%, FA 98%. EMB on 04/02 demonstrated no evidence of rejection. RHC 05/06 pending Immunosuppression: - Given history of likely tacro toxicity, tacro dose was slowly uptitrated during admission with goal tacro levels 8-10. - Tacro 2.5 mg morning/3 mg evening, 82 on 05/08 - MWF tacro levels - Given significant pancytopenia during [facility] admission, MMF was held until stably no longer neutropenic and restarted on lower dose of 180 mg BID --> 360mg BID on 05/06 PM - Continues on Prednisone 5mg daily ID Prophylaxis: - Valtrex 500mg daily (post-HD on HD days) for HSV ppx - PO Letermovir for CMV PPX - H/h Pravastatin 10mg QD while admitted given concern for pancreatitis mediated - Atovaquone 1500 mg daily DCed on 05/06 - Posaconazole 300mg QD ppx held per ID given unclear indication and can worsen pancreatitis; ultimately DC'ed #RUQ/RLQ pain #Pancreatitis #Hx of abdominal infections #Superinfection (CoNS/MDR E. Coli) of RP/abdominal wall hematomas s/p IR drain placements Recent admission at [facility] (01/28 to 03/08) for +E.Coli infected RP/abdominal wall hematomas, treated with 3 IR drains, Ceftaz-Avibactam and Flagyl (d/c'd 03/16). On this admission, patient reported worsening diffuse abdominal tenderness worse in RUQ/RLQ. Workup notable for initial 03/11 CTAP demonstrating similar to prior 03/05 CTAP pancreatitis, ileus, with stable fluid collection and no new abdominal or pelvic abnormality. Repeat abdominal imaging on 03/18 CTAP notable for c/f hemorrhagic pancreatitis vs bleeding pseudoaneurysm (though reassuringly no active extravasation). Overall, suspect worsening pancreatitis as primary etiology of abdominal pain. MRCP(03/22/24) demonstrated persistent acute interstitial edematous pancreatitis. Dilated and irregular main pancreatic duct, new since January, may be related to pancreatitis. However underlying pancreatic neoplasm must be considered. Abdominal pain resolved during last week of February 2024 following aggressive antibiotic regimen. - GI to perform EUS/ERCP in 6-8 weeks from resolution of current episode to evaluate MRCP findings. Abdominal drains removed on 04/04/24- 04/05/24 once met criteria for removal of < 10cc output over 48 hours. - Pravastatin held due to concern for medication induced pancreatitis, DCed upon [facility] admission as was not getting - No abdominal pain, TBili WNL, Alk Phos mildly elevated, otherwise normal #Hx of Ileus #Nutrition #On tube feeding diet [employer] saw patient during recent admission and recommended thin liquids with chin tuck and regular solids. Permitted PO diet, dependent on TFs via NGT due to nausea which has slowly been improving - Check EKG re QTc if PRNs are needed - QTc 535ms on 04/12 - TFs now cycled on 05/07 PM #Anxiety In the setting of a prolonged hospitalization -Psych consulted - PRN atarax 25mg q 6hr - Lexapro 5mg daily - SW following - [facility] Psych consulted and following, stopped Lexapro 5mg daily, started Remeron 7.5mg QHS on 04/17 #Insomnia - Poor sleep, taking Melatonin 3mg PRN and Trazodone 25mg PRN - Remeron as above #AoCD #MATTHIAS #Jewish Last transfusion November 07, 2023 in the setting of her OHT. Hgb remains stable without transfusion. Iron studies demonstrated MATTHIAS thus given IV iron 200 mg x5 days (03/24-03/28). Repeat iron studies demonstrating fully repleted iron. Initiated on epoetin 4000U q14 days bumped to RETACRIT epoetin azalia-epbx 6000U three times weekly. Hemolysis labs (03/21/24) negative. - Monitoring H/H, steadily improving #B/l pleural effusions, s/p PleurX Previously had R pleural effusion s/p R thora (01/11) with pleurx placement on 01/16. Cap and drain MWF Last drained 75cc on 04/08 Patient developed chest pain 04/09 related to Pleurx drainage. Seen by thoracic team. No acute issues and assessed that pain was likely due to irritation from draining against stiff lungs. Instructed team to be careful with draining and to stop the drain at the earliest sign of pain from patient. - Patient declines Pleurx drainage, remains on RA - Surveillance CXR on 04/18 and again on 05/05 - Transplant team planning for thoracics f/u for removal, no residual effusion Quality Clinical Documentation: Hyperphosphatemia (Present on Admission) . Treating . Phosphorus of 4.9 on 04/26/2024 Resolved: #VRE bacteremia #MecA+ Staph epidermis bacteremia Unclear source of VRE bacteremia (Bcx 03/18). Patient with known pancreatitis and hx of multiple intra-abdominal infections (see below). Given multiple chronic drains/lines, also concerned about line/drain-associated infection. On, 03/22: Bcx growing staph epi and MeCA Treated with antibiotics guided by ID recommendations as below: - Linezolid 600 mg q12h (03/24 - 04/03) - Daptomycin 8 mg/kg q48hr, timed post-HD (03/19-03/24) - Ceftazidime-avibactam 1.25g q8hr (03/19-03/20, 03/21-03/25) - Metronidazole (last given 03/16, 03/18 -03/24) #History of Leukopenia #History of Neutropenia Most likely 2/2 to immunosuppressive meds iso RJ. CMV VL on 03/28 undetectable with next check scheduled for 04/12/24 GCSF given on 03/21/24 ANC<500 #Diarrhea Ongoing diarrhea since admission with periods of improvement as well as worsening. Extensive infectious workup performed on numerous dates remained negative. Stool pancreatic elastase resulted low, indicating component of exocrine pancreatic insufficiency (EPI) thus initiated on Creon on 04/02, which was switched to VIOKACE on 04/08. Multiple formulations of tube feeds trialed. - TF: [employer] Renal Support 1.8 - Diarrhea most likely multifactorial with significant contributions from EPI and prolonged antibiosis - No longer with diarrhea Assessment & Plan (05/07/2024 6:11 PM EST): #Hx of OHT #LVEF 55% (03/21/24) Prolonged hospitalization for advanced HF and OHT from 06/07/23-01/19/24, course with multiple complications. OHT performed 11/04/23. Path from EMB 01/21 showed negative for pathologic antibody mediated rejection. Repeat biopsy on 02/25 showed no evidence of rejection. For immunosuppression, titrated to tacrolimus goal 10-12. At time of recent discharge she was on tacrolimus 1 mg BID, along with mycophenolate 720 mg BID. Volume status on admission 01/30-03/08 was maintained on Bumex 4mg daily as needed, dosed per weight. At discharge Bumex 4mg PO was held given RJ and euvolemia. Did not receive Bumex at [facility]. Last bed weight at [facility] on 04/10 was 151 (though with full bedding in bed). Last echo 03/13/2024, EF 55%, RVSP 25. RHC 04/02 demonstrated RA 0, RV 28/3, PCWP 8, PA /, CO/CI 5.32/3.09, PVR 195 dsc-5. PA sat 54%, FA 98%. EMB on 04/02 demonstrated no evidence of rejection. RHC 05/06 pending Immunosuppression: - Given history of likely tacro toxicity, tacro dose was slowly uptitrated during admission with goal tacro levels 8-10. - Tacro 2.5 mg morning/3 mg evening, 8.0 on 05/01 and 6.7 on 05/03, 4/8 on 05/06, recheck 05/08 - MWF tacro levels - Given significant pancytopenia during [facility] admission, MMF was held until stably no longer neutropenic and restarted on lower dose of 180 mg BID --> 360mg BID on 05/06 PM - Continues on Prednisone 5mg daily ID Prophylaxis: - Valtrex 500mg daily (post-HD on HD days) for HSV ppx - PO Letermovir for CMV PPX - H/h Pravastatin 10mg QD while admitted given concern for pancreatitis mediated - Atovaquone 1500 mg daily DCed on 05/06 - Posaconazole 300mg QD ppx held per ID given unclear indication and can worsen pancreatitis; ultimately DC'ed #RUQ/RLQ pain #Pancreatitis #Hx of abdominal infections #Superinfection (CoNS/MDR E. Coli) of RP/abdominal wall hematomas s/p IR drain placements Recent admission at [facility] (01/28 to 03/08) for +E.Coli infected RP/abdominal wall hematomas, treated with 3 IR drains, Ceftaz-Avibactam and Flagyl (d/c'd 03/16). On this admission, patient reported worsening diffuse abdominal tenderness worse in RUQ/RLQ. Workup notable for initial 03/11 CTAP demonstrating similar to prior 03/05 CTAP pancreatitis, ileus, with stable fluid collection and no new abdominal or pelvic abnormality. Repeat abdominal imaging on 03/18 CTAP notable for c/f hemorrhagic pancreatitis vs bleeding pseudoaneurysm (though reassuringly no active extravasation). Overall, suspect worsening pancreatitis as primary etiology of abdominal pain. MRCP(03/22/24) demonstrated persistent acute interstitial edematous pancreatitis. Dilated and irregular main pancreatic duct, new since January, may be related to pancreatitis. However underlying pancreatic neoplasm must be considered. Abdominal pain resolved during last week of February 2024 following aggressive antibiotic regimen. - GI to perform EUS/ERCP in 6-8 weeks from resolution of current episode to evaluate MRCP findings. Abdominal drains removed on 04/04/24- 04/05/24 once met criteria for removal of < 10cc output over 48 hours. - Pravastatin held due to concern for medication induced pancreatitis, DCed upon [facility] admission as was not getting - No abdominal pain, TBili WNL, Alk Phos mildly elevated, otherwise normal #Hx of Ileus #Nutrition #On tube feeding diet [employer] saw patient during recent admission and recommended thin liquids with chin tuck and regular solids. Permitted PO diet, dependent on TFs via NGT due to nausea which has slowly been improving - Check EKG re QTc if PRNs are needed - QTc 535ms on 04/12 - TFs now cycled on 2 PM #Anxiety In the setting of a prolonged hospitalization -Psych consulted - PRN atarax 25mg q 6hr - Lexapro 5mg daily - SW following - [facility] Psych consulted and following, stopped Lexapro 5mg daily, started Remeron 7.5mg QHS on 04/17 #Insomnia - Poor sleep, taking Melatonin 3mg PRN and Trazodone 25mg PRN - Remeron as above #AoCD #MATTHIAS #Jewish Last transfusion November 07, 2023 in the setting of her OHT. Hgb remains stable without transfusion. Iron studies demonstrated MATTHIAS thus given IV iron 200 mg x5 days (03/24-03/28). Repeat iron studies demonstrating fully repleted iron. Initiated on epoetin 4000U q14 days bumped to RETACRIT epoetin azalia-epbx 6000U three times weekly. Hemolysis labs (03/21/24) negative. - Monitoring H/H, steadily improving #B/l pleural effusions, s/p PleurX Previously had R pleural effusion s/p R thora (01/11) with pleurx placement on 01/16. Cap and drain MWF Last drained 75cc on 04/08 Patient developed chest pain 04/09 related to Pleurx drainage. Seen by thoracic team. No acute issues and assessed that pain was likely due to irritation from draining against stiff lungs. Instructed team to be careful with draining and to stop the drain at the earliest sign of pain from patient. - Patient declines Pleurx drainage, remains on RA - Surveillance CXR on 04/18 and again on 05/05 - Transplant team planning for thoracics f/u for removal, no residual effusion Quality Clinical Documentation: Hyperphosphatemia (Present on Admission) . Treating . Phosphorus of 4.9 on 04/26/2024 Resolved: #VRE bacteremia #MecA+ Staph epidermis bacteremia Unclear source of VRE bacteremia (Bcx 03/18). Patient with known pancreatitis and hx of multiple intra-abdominal infections (see below). Given multiple chronic drains/lines, also concerned about line/drain-associated infection. On, 03/22: Bcx growing staph epi and MeCA Treated with antibiotics guided by ID recommendations as below: - Linezolid 600 mg q12h (03/24 - 04/03) - Daptomycin 8 mg/kg q48hr, timed post-HD (03/19-03/24) - Ceftazidime-avibactam 1.25g q8hr (03/19-03/20, 03/21-03/25) - Metronidazole (last given 03/16, 03/18 -03/24) #History of Leukopenia #History of Neutropenia Most likely 2/2 to immunosuppressive meds iso RJ. CMV VL on 03/28 undetectable with next check scheduled for 04/12/24 GCSF given on 03/21/24 ANC<500 #Diarrhea Ongoing diarrhea since admission with periods of improvement as well as worsening. Extensive infectious workup performed on numerous dates remained negative. Stool pancreatic elastase resulted low, indicating component of exocrine pancreatic insufficiency (EPI) thus initiated on Creon on 04/02, which was switched to VIOKACE on 04/08. Multiple formulations of tube feeds trialed. - TF: [employer] Renal Support 1.8 - Diarrhea most likely multifactorial with significant contributions from EPI and prolonged antibiosis - No longer with diarrhea Assessment & Plan (05/06/2024 8:00 PM EST): #Hx of OHT #LVEF 55% (03/21/24) Prolonged hospitalization for advanced HF and OHT from 06/07/23-01/19/24, course with multiple complications. OHT performed 11/04/23. Path from EMB 01/21 showed negative for pathologic antibody mediated rejection. Repeat biopsy on 02/25 showed no evidence of rejection. For immunosuppression, titrated to tacrolimus goal 10-12. At time of recent discharge she was on tacrolimus 1 mg BID, along with mycophenolate 720 mg BID. Volume status on admission 01/30-03/08 was maintained on Bumex 4mg daily as needed, dosed per weight. At discharge Bumex 4mg PO was held given RJ and euvolemia. Did not receive Bumex at [facility]. Last bed weight at [facility] on 04/10 was 151 (though with full bedding in bed). Last echo 03/13/2024, EF 55%, RVSP 25. RHC 04/02 demonstrated RA 0, RV 28/3, PCWP 8, PA /, CO/CI 5.32/3.09, PVR 195 dsc-5. PA sat 54%, FA 98%. EMB on 04/02 demonstrated no evidence of rejection. RHC 05/06 pending Immunosuppression: - Given history of likely tacro toxicity, tacro dose was slowly uptitrated during admission with goal tacro levels 8-10. - Tacro 2.5 mg morning/3 mg evening, 8.0 on 05/01 and 6.7 on 05/03, 4/8 on 05/06, recheck 05/07 and 05/08 - MWF tacro levels - Given significant pancytopenia during [facility] admission, MMF was held until stably no longer neutropenic and restarted on lower dose of 180 mg BID --> 360mg BID on 05/06 PM - Continues on Prednisone 5mg daily ID Prophylaxis: - Valtrex 500mg daily (post-HD on HD days) for HSV ppx - PO Letermovir for CMV PPX - H/h Pravastatin 10mg QD while admitted given concern for pancreatitis mediated - Atovaquone 1500 mg daily DCed on 05/06 - Posaconazole 300mg QD ppx held per ID given unclear indication and can worsen pancreatitis; ultimately DC'ed #RUQ/RLQ pain #Pancreatitis #Hx of abdominal infections #Superinfection (CoNS/MDR E. Coli) of RP/abdominal wall hematomas s/p IR drain placements Recent admission at [facility] (01/28 to 03/08) for +E.Coli infected RP/abdominal wall hematomas, treated with 3 IR drains, Ceftaz-Avibactam and Flagyl (d/c'd 03/16). On this admission, patient reported worsening diffuse abdominal tenderness worse in RUQ/RLQ. Workup notable for initial 03/11 CTAP demonstrating similar to prior 03/05 CTAP pancreatitis, ileus, with stable fluid collection and no new abdominal or pelvic abnormality. Repeat abdominal imaging on 03/18 CTAP notable for c/f hemorrhagic pancreatitis vs bleeding pseudoaneurysm (though reassuringly no active extravasation). Overall, suspect worsening pancreatitis as primary etiology of abdominal pain. MRCP(03/22/24) demonstrated persistent acute interstitial edematous pancreatitis. Dilated and irregular main pancreatic duct, new since January, may be related to pancreatitis. However underlying pancreatic neoplasm must be considered. Abdominal pain resolved during last week of February 2024 following aggressive antibiotic regimen. - GI to perform EUS/ERCP in 6-8 weeks from resolution of current episode to evaluate MRCP findings. Abdominal drains removed on 04/04/24- 04/05/24 once met criteria for removal of < 10cc output over 48 hours. - Pravastatin held due to concern for medication induced pancreatitis, DCed upon [facility] admission as was not getting - No abdominal pain, TBili WNL, Alk Phos mildly elevated, otherwise normal #Hx of Ileus #Nutrition [employer] saw patient during recent admission and recommended thin liquids with chin tuck and regular solids. Permitted PO diet, dependent on TFs via NGT due to nausea - Check EKG re QTc if PRNs are needed - QTc 535ms on 04/12 #Anxiety In the setting of a prolonged hospitalization -Psych consulted - PRN atarax 25mg q 6hr - Lexapro 5mg daily - SW following - [facility] Psych consulted and following, stopped Lexapro 5mg daily, started Remeron 7.5mg QHS on 04/17 #Insomnia - Poor sleep, taking Melatonin 3mg PRN and Trazodone 25mg PRN - Remeron as above #AoCD #MATTHIAS #[employer] Last transfusion November 07, 2023 in the setting of her OHT. Hgb remains stable without transfusion. Iron studies demonstrated MATTHIAS thus given IV iron 200 mg x5 days (03/24-03/28). Repeat iron studies demonstrating fully repleted iron. Initiated on epoetin 4000U q14 days bumped to RETACRIT epoetin azalia-epbx 6000U three times weekly. Hemolysis labs (03/21/24) negative. - Monitoring H/H, steadily improving #B/l pleural effusions, s/p PleurX Previously had R pleural effusion s/p R thora (01/11) with pleurx placement on 01/16. Cap and drain MWF Last drained 75cc on 04/08 Patient developed chest pain 04/09 related to Pleurx drainage. Seen by thoracic team. No acute issues and assessed that pain was likely due to irritation from draining against stiff lungs. Instructed team to be careful with draining and to stop the drain at the earliest sign of pain from patient. - Patient declines Pleurx drainage, remains on RA - Surveillance CXR on 04/18 and again on 05/05 Quality Clinical Documentation: Hyperphosphatemia (Present on Admission) . Treating . Phosphorus of 4.9 on 04/26/2024 Resolved: #VRE bacteremia #MecA+ Staph epidermis bacteremia Unclear source of VRE bacteremia (Bcx 03/18). Patient with known pancreatitis and hx of multiple intra-abdominal infections (see below). Given multiple chronic drains/lines, also concerned about line/drain-associated infection. On, 03/22: Bcx growing staph epi and MeCA Treated with antibiotics guided by ID recommendations as below: - Linezolid 600 mg q12h (03/24 - 04/03) - Daptomycin 8 mg/kg q48hr, timed post-HD (03/19-03/24) - Ceftazidime-avibactam 1.25g q8hr (03/19-03/20, 03/21-03/25) - Metronidazole (last given 03/16, 03/18 -03/24) #History of Leukopenia #History of Neutropenia Most likely 2/2 to immunosuppressive meds iso RJ. CMV VL on 03/28 undetectable with next check scheduled for 04/12/24 GCSF given on 03/21/24 ANC<500 #Diarrhea Ongoing diarrhea since admission with periods of improvement as well as worsening. Extensive infectious workup performed on numerous dates remained negative. Stool pancreatic elastase resulted low, indicating component of exocrine pancreatic insufficiency (EPI) thus initiated on Creon on 04/02, which was switched to VIOKACE on 04/08. Multiple formulations of tube feeds trialed. - TF: [employer] Renal Support 1.8 - Diarrhea most likely multifactorial with significant contributions from EPI and prolonged antibiosis - No longer with diarrhea Assessment & Plan (05/05/2024 3:01 PM EST): #Hx of OHT #LVEF 55% (03/21/24) Prolonged hospitalization for advanced HF and OHT from 06/07/23-01/19/24, course with multiple complications. OHT performed 11/04/23. Path from EMB 01/21 showed negative for pathologic antibody mediated rejection. Repeat biopsy on 02/25 showed no evidence of rejection. For immunosuppression, titrated to tacrolimus goal 10-12. At time of recent discharge she was on tacrolimus 1 mg BID, along with mycophenolate 720 mg BID. Volume status on admission 01/30-03/08 was maintained on Bumex 4mg daily as needed, dosed per weight. At discharge Bumex 4mg PO was held given RJ and euvolemia. Did not receive Bumex at [facility]. Last bed weight at [facility] on 04/10 was 151 (though with full bedding in bed). Last echo 03/13/2024, EF 55%, RVSP 25. RHC 04/02 demonstrated RA 0, RV 28/3, PCWP 8, PA //21, CO/CI 5.32/3.09, PVR 195 dsc-5. PA sat 54%, FA 98%. EMB on 04/02 demonstrated no evidence of rejection. Immunosuppression: - Given history of likely tacro toxicity, tacro dose was slowly uptitrated during admission with goal tacro levels 8-10. - Tacro 2.5 mg morning/3 mg evening, 8.0 on 05/01 and 6.7 on 05/03 - MWF tacro levels - Given significant pancytopenia during [facility] admission, MMF was held until stably no longer neutropenic and restarted on lower dose of 180 mg BID - Continues on Prednisone 5mg daily ID Prophylaxis: - Valtrex 500mg daily (post-HD on HD days) for HSV ppx - PO Letermovir for CMV PPX - H/h Pravastatin 10mg QD while admitted given concern for pancreatitis mediated - Atovaquone 1500 mg daily - Posaconazole 300mg QD ppx held per ID given unclear indication and can worsen pancreatitis; ultimately DC'ed [facility] biopsy with ECHO and clinic f/u scheduled for 05/06/24 #RUQ/RLQ pain #Pancreatitis #Hx of abdominal infections #Superinfection (CoNS/MDR E. Coli) of RP/abdominal wall hematomas s/p IR drain placements Recent admission at [facility] (01/28 to 03/08) for +E.Coli infected RP/abdominal wall hematomas, treated with 3 IR drains, Ceftaz-Avibactam and Flagyl (d/c'd 03/16). On this admission, patient reported worsening diffuse abdominal tenderness worse in RUQ/RLQ. Workup notable for initial 03/11 CTAP demonstrating similar to prior 03/05 CTAP pancreatitis, ileus, with stable fluid collection and no new abdominal or pelvic abnormality. Repeat abdominal imaging on 03/18 CTAP notable for c/f hemorrhagic pancreatitis vs bleeding pseudoaneurysm (though reassuringly no active extravasation). Overall, suspect worsening pancreatitis as primary etiology of abdominal pain. MRCP(03/22/24) demonstrated persistent acute interstitial edematous pancreatitis. Dilated and irregular main pancreatic duct, new since January, may be related to pancreatitis. However underlying pancreatic neoplasm must be considered. Abdominal pain resolved during last week of February 2024 following aggressive antibiotic regimen. - GI to perform EUS/ERCP in 6-8 weeks from resolution of current episode to evaluate MRCP findings. Abdominal drains removed on 04/04/24- 04/05/24 once met criteria for removal of < 10cc output over 48 hours. - Pravastatin held due to concern for medication induced pancreatitis, DCed upon [facility] admission as was not getting - No abdominal pain, TBili WNL, Alk Phos mildly elevated, otherwise normal #Hx of Ileus #Nutrition [employer] saw patient during recent admission and recommended thin liquids with chin tuck and regular solids. Permitted PO diet, dependent on TFs via NGT due to nausea - Check EKG re QTc if PRNs are needed - QTc 535ms on 04/12 #Anxiety In the setting of a prolonged hospitalization -Psych consulted - PRN atarax 25mg q 6hr - Lexapro 5mg daily - SW following - [facility] Psych consulted and following, stopped Lexapro 5mg daily, started Remeron 7.5mg QHS on 04/17 #Insomnia - Poor sleep, taking Melatonin 3mg PRN and Trazodone 25mg PRN - Remeron as above #AoCD #MATTHIAS #Jewish Last transfusion November 07, 2023 in the setting of her OHT. Hgb remains stable without transfusion. Iron studies demonstrated MATTHIAS thus given IV iron 200 mg x5 days (03/24-03/28). Repeat iron studies demonstrating fully repleted iron. Initiated on epoetin 4000U q14 days bumped to RETACRIT epoetin azalia-epbx 6000U three times weekly. Hemolysis labs (03/21/24) negative. - Monitoring H/H, steadily improving #B/l pleural effusions, s/p PleurX Previously had R pleural effusion s/p R thora (01/11) with pleurx placement on 01/16. Cap and drain MWF Last drained 75cc on 04/08 Patient developed chest pain 04/09 related to Pleurx drainage. Seen by thoracic team. No acute issues and assessed that pain was likely due to irritation from draining against stiff lungs. Instructed team to be careful with draining and to stop the drain at the earliest sign of pain from patient. - Patient declines Pleurx drainage, remains on RA - Surveillance CXR on 04/18 and again on 05/05 Quality Clinical Documentation: Hyperphosphatemia (Present on Admission) . Treating . Phosphorus of 4.9 on 04/26/2024 Resolved: #VRE bacteremia #MecA+ Staph epidermis bacteremia Unclear source of VRE bacteremia (Bcx 03/18). Patient with known pancreatitis and hx of multiple intra-abdominal infections (see below). Given multiple chronic drains/lines, also concerned about line/drain-associated infection. On, 03/22: Bcx growing staph epi and MeCA Treated with antibiotics guided by ID recommendations as below: - Linezolid 600 mg q12h (03/24 - 04/03) - Daptomycin 8 mg/kg q48hr, timed post-HD (03/19-03/24) - Ceftazidime-avibactam 1.25g q8hr (03/19-03/20, 03/21-03/25) - Metronidazole (last given 03/16, 03/18 -03/24) #History of Leukopenia #History of Neutropenia Most likely 2/2 to immunosuppressive meds iso RJ. CMV VL on 03/28 undetectable with next check scheduled for 04/12/24 GCSF given on 03/21/24 ANC<500 #Diarrhea Ongoing diarrhea since admission with periods of improvement as well as worsening. Extensive infectious workup performed on numerous dates remained negative. Stool pancreatic elastase resulted low, indicating component of exocrine pancreatic insufficiency (EPI) thus initiated on Creon on 04/02, which was switched to VIOKACE on 04/08. Multiple formulations of tube feeds trialed. - TF: [employer] Renal Support 1.8 - Diarrhea most likely multifactorial with significant contributions from EPI and prolonged antibiosis - No longer with diarrhea Assessment & Plan (05/03/2024 9:29 PM EST): #Hx of OHT #LVEF 55% (03/21/24) Prolonged hospitalization for advanced HF and OHT from 06/07/23-01/19/24, course with multiple complications. OHT performed 11/04/23. Path from EMB 01/21 showed negative for pathologic antibody mediated rejection. Repeat biopsy on 02/25 showed no evidence of rejection. For immunosuppression, titrated to tacrolimus goal -. At time of recent discharge she was on tacrolimus 1 mg BID, along with mycophenolate 720 mg BID. Volume status on admission 01/30-03/08 was maintained on Bumex 4mg daily as needed, dosed per weight. At discharge Bumex 4mg PO was held given RJ and euvolemia. Did not receive Bumex at [facility]. Last bed weight at [facility] on 04/10 was 151 (though with full bedding in bed). Last echo 03/13/2024, EF 55%, RVSP 25. RHC 04/02 demonstrated RA 0, RV 28/3, PCWP 8, PA , CO/CI 5.32/3.09, PVR 195 dsc-5. PA sat 54%, FA 98%. EMB on 04/02 demonstrated no evidence of rejection. Immunosuppression: - Given history of likely tacro toxicity, tacro dose was slowly uptitrated during admission with goal tacro levels 8-10. - Tacro 2.5 mg morning/3 mg evening, 8.0 on 05/01 and 6.7 on 05/03 - MWF tacro levels - Given significant pancytopenia during [facility] admission, MMF was held until stably no longer neutropenic and restarted on lower dose of 180 mg BID - Continues on Prednisone 5mg daily ID Prophylaxis: - Valtrex 500mg daily (post-HD on HD days) for HSV ppx - PO Letermovir for CMV PPX - H/h Pravastatin 10mg QD while admitted given concern for pancreatitis mediated - Atovaquone 1500 mg daily - Posaconazole 300mg QD ppx held per ID given unclear indication and can worsen pancreatitis; ultimately DC'ed #RUQ/RLQ pain #Pancreatitis #Hx of abdominal infections #Superinfection (CoNS/MDR E. Coli) of RP/abdominal wall hematomas s/p IR drain placements Recent admission at [facility] (01/28 to 03/08) for +E.Coli infected RP/abdominal wall hematomas, treated with 3 IR drains, Ceftaz-Avibactam and Flagyl (d/c'd 03/16). On this admission, patient reported worsening diffuse abdominal tenderness worse in RUQ/RLQ. Workup notable for initial 03/11 CTAP demonstrating similar to prior 03/05 CTAP pancreatitis, ileus, with stable fluid collection and no new abdominal or pelvic abnormality. Repeat abdominal imaging on 03/18 CTAP notable for c/f hemorrhagic pancreatitis vs bleeding pseudoaneurysm (though reassuringly no active extravasation). Overall, suspect worsening pancreatitis as primary etiology of abdominal pain. MRCP(03/22/24) demonstrated persistent acute interstitial edematous pancreatitis. Dilated and irregular main pancreatic duct, new since January, may be related to pancreatitis. However underlying pancreatic neoplasm must be considered. Abdominal pain resolved during last week of February 2024 following aggressive antibiotic regimen. - GI to perform EUS/ERCP in 6-8 weeks from resolution of current episode to evaluate MRCP findings. Abdominal drains removed on 04/04/24- 04/05/24 once met criteria for removal of < 10cc output over 48 hours. - Pravastatin held due to concern for medication induced pancreatitis, DCed upon [facility] admission as was not getting - No abdominal pain, TBili WNL, Alk Phos mildly elevated, otherwise normal #Hx of Ileus #[employer] saw patient during recent admission and recommended thin liquids with chin tuck and regular solids. Permitted PO diet, dependent on TFs via NGT due to nausea - Check EKG re QTc if PRNs are needed - QTc 535ms on 04/12 #Anxiety In the setting of a prolonged hospitalization -Psych consulted - PRN atarax 25mg q 6hr - Lexapro 5mg daily - SW following - [facility] Psych consulted and following, stopped Lexapro 5mg daily, started Remeron 7.5mg QHS on 04/17 #Insomnia - Poor sleep, taking Melatonin 3mg PRN and Trazodone 25mg PRN - Remeron as above #AoCD #MATTHIAS #Jewish Last transfusion November 07, 2023 in the setting of her OHT. Hgb remains stable without transfusion. Iron studies demonstrated MATTHIAS thus given IV iron 200 mg x5 days (03/24-03/28). Repeat iron studies demonstrating fully repleted iron. Initiated on epoetin 4000U q14 days bumped to RETACRIT epoetin azalia-epbx 6000U three times weekly. Hemolysis labs (03/21/24) negative. - Monitoring H/H, steadily improving #B/l pleural effusions, s/p PleurX Previously had R pleural effusion s/p R thora (01/11) with pleurx placement on 01/16. Cap and drain MWF Last drained 75cc on 04/08 Patient developed chest pain 04/09 related to Pleurx drainage. Seen by thoracic team. No acute issues and assessed that pain was likely due to irritation from draining against stiff lungs. Instructed team to be careful with draining and to stop the drain at the earliest sign of pain from patient. - Patient declines Pleurx drainage, remains on RA - Surveillance CXR on 04/18 Quality Clinical Documentation: Hyperphosphatemia (Present on Admission) . Treating . Phosphorus of 4.9 on 04/26/2024 Resolved: #VRE bacteremia #MecA+ Staph epidermis bacteremia Unclear source of VRE bacteremia (Bcx 03/18). Patient with known pancreatitis and hx of multiple intra-abdominal infections (see below). Given multiple chronic drains/lines, also concerned about line/drain-associated infection. On, 03/22: Bcx growing staph epi and MeCA Treated with antibiotics guided by ID recommendations as below: - Linezolid 600 mg q12h (03/24 - 04/03) - Daptomycin 8 mg/kg q48hr, timed post-HD (03/19-03/24) - Ceftazidime-avibactam 1.25g q8hr (03/19-03/20, 03/21-03/25) - Metronidazole (last given 03/16, 03/18 -03/24) #History of Leukopenia #History of Neutropenia Most likely 2/2 to immunosuppressive meds iso RJ. CMV VL on 03/28 undetectable with next check scheduled for 04/12/24 GCSF given on 03/21/24 ANC<500 #Diarrhea Ongoing diarrhea since admission with periods of improvement as well as worsening. Extensive infectious workup performed on numerous dates remained negative. Stool pancreatic elastase resulted low, indicating component of exocrine pancreatic insufficiency (EPI) thus initiated on Creon on 04/02, which was switched to VIOKACE on 04/08. Multiple formulations of tube feeds trialed. - TF: [facility] Renal Support 1.8 - Diarrhea most likely multifactorial with significant contributions from EPI and prolonged antibiosis - No longer with diarrhea Assessment & Plan (05/02/2024 1:00 PM EST): #Hx of OHT #LVEF 55% (03/21/24) Prolonged hospitalization for advanced HF and OHT from 06/07/23-01/19/24, course with multiple complications. OHT performed 11/04/23. Path from EMB 01/21 showed negative for pathologic antibody mediated rejection. Repeat biopsy on 02/25 showed no evidence of rejection. For immunosuppression, titrated to tacrolimus goal 10-12. At time of recent discharge she was on tacrolimus 1 mg BID, along with mycophenolate 720 mg BID. Volume status on admission 01/30-03/08 was maintained on Bumex 4mg daily as needed, dosed per weight. At discharge Bumex 4mg PO was held given RJ and euvolemia. Did not receive Bumex at [facility]. Last bed weight at [facility] on 04/10 was 151 (though with full bedding in bed). Last echo 03/13/2024, EF 55%, RVSP 25. RHC 04/02 demonstrated RA 0, RV 28/3, PCWP 8, PA , CO/CI 5.32/3.09, PVR 195 dsc-5. PA sat 54%, FA 98%. EMB on 04/02 demonstrated no evidence of rejection. Immunosuppression: - Given history of likely tacro toxicity, tacro dose was slowly uptitrated during admission with goal tacro levels 8-10. - Tacro 2.5 mg morning/3 mg evening, 8.0 on 05/01 - MWF tacro levels - Given significant pancytopenia during [facility] admission, MMF was held until stably no longer neutropenic and restarted on lower dose of 180 mg BID - Continues on Prednisone 5mg daily ID Prophylaxis: - Valtrex 500mg daily (post-HD on HD days) for HSV ppx - PO Letermovir for CMV PPX - H/h Pravastatin 10mg QD while admitted given concern for pancreatitis mediated - Atovaquone 1500 mg daily - Posaconazole 300mg QD ppx held per ID given unclear indication and can worsen pancreatitis; ultimately DC'ed #RUQ/RLQ pain #Pancreatitis #Hx of abdominal infections #Superinfection (CoNS/MDR E. Coli) of RP/abdominal wall hematomas s/p IR drain placements Recent admission at [facility] (01/28 to 03/08) for +E.Coli infected RP/abdominal wall hematomas, treated with 3 IR drains, Ceftaz-Avibactam and Flagyl (d/c'd 03/16). On this admission, patient reported worsening diffuse abdominal tenderness worse in RUQ/RLQ. Workup notable for initial 03/11 CTAP demonstrating similar to prior 03/05 CTAP pancreatitis, ileus, with stable fluid collection and no new abdominal or pelvic abnormality. Repeat abdominal imaging on 03/18 CTAP notable for c/f hemorrhagic pancreatitis vs bleeding pseudoaneurysm (though reassuringly no active extravasation). Overall, suspect worsening pancreatitis as primary etiology of abdominal pain. MRCP(03/22/24) demonstrated persistent acute interstitial edematous pancreatitis. Dilated and irregular main pancreatic duct, new since January, may be related to pancreatitis. However underlying pancreatic neoplasm must be considered. Abdominal pain resolved during last week of February 2024 following aggressive antibiotic regimen. - GI to perform EUS/ERCP in 6-8 weeks from resolution of current episode to evaluate MRCP findings. Abdominal drains removed on 04/04/24- 04/05/24 once met criteria for removal of < 10cc output over 48 hours. - Pravastatin held due to concern for medication induced pancreatitis, DCed upon [facility] admission as was not getting - No abdominal pain, TBili WNL, Alk Phos mildly elevated, otherwise normal #Hx of Ileus #[employer] saw patient during recent admission and recommended thin liquids with chin tuck and regular solids. Permitted PO diet, dependent on TFs via NGT due to nausea - Check EKG re QTc if PRNs are needed - QTc 535ms on 04/12 #Anxiety In the setting of a prolonged hospitalization -Psych consulted - PRN atarax 25mg q 6hr - Lexapro 5mg daily - SW following - [facility] Psych consulted and following, stopped Lexapro 5mg daily, started Remeron 7.5mg QHS on 04/17 #Insomnia - Poor sleep, taking Melatonin 3mg PRN and Trazodone 25mg PRN - Remeron as above #AoCD #MATTHIAS #Jewish Last transfusion November 07, 2023 in the setting of her OHT. Hgb remains stable without transfusion. Iron studies demonstrated MATTHIAS thus given IV iron 200 mg x5 days (03/24-03/28). Repeat iron studies demonstrating fully repleted iron. Initiated on epoetin 4000U q14 days bumped to RETACRIT epoetin azalia-epbx 6000U three times weekly. Hemolysis labs (03/21/24) negative. - Monitoring H/H, steadily improving #B/l pleural effusions, s/p PleurX Previously had R pleural effusion s/p R thora (01/11) with pleurx placement on 01/16. Cap and drain MWF Last drained 75cc on 04/08 Patient developed chest pain 04/09 related to Pleurx drainage. Seen by thoracic team. No acute issues and assessed that pain was likely due to irritation from draining against stiff lungs. Instructed team to be careful with draining and to stop the drain at the earliest sign of pain from patient. - Patient declines Pleurx drainage, remains on RA - Surveillance CXR on 04/18 Quality Clinical Documentation: Hyperphosphatemia (Present on Admission) . Treating . Phosphorus of 4.9 on 04/26/2024 Resolved: #VRE bacteremia #MecA+ Staph epidermis bacteremia Unclear source of VRE bacteremia (Bcx 03/18). Patient with known pancreatitis and hx of multiple intra-abdominal infections (see below). Given multiple chronic drains/lines, also concerned about line/drain-associated infection. On, 03/22: Bcx growing staph epi and MeCA Treated with antibiotics guided by ID recommendations as below: - Linezolid 600 mg q12h (03/24 - 04/03) - Daptomycin 8 mg/kg q48hr, timed post-HD (03/19-03/24) - Ceftazidime-avibactam 1.25g q8hr (03/19-03/20, 03/21-03/25) - Metronidazole (last given 03/16, 03/18 -03/24) #History of Leukopenia #History of Neutropenia Most likely 2/2 to immunosuppressive meds iso RJ. CMV VL on 03/28 undetectable with next check scheduled for 04/12/24 GCSF given on 03/21/24 ANC<500 #Diarrhea Ongoing diarrhea since admission with periods of improvement as well as worsening. Extensive infectious workup performed on numerous dates remained negative. Stool pancreatic elastase resulted low, indicating component of exocrine pancreatic insufficiency (EPI) thus initiated on Creon on 04/02, which was switched to VIOKACE on 04/08. Multiple formulations of tube feeds trialed. - TF: [employer] Renal Support 1.8 - Diarrhea most likely multifactorial with significant contributions from EPI and prolonged antibiosis - No longer with diarrhea Assessment & Plan (05/01/2024 1:43 PM EST): #Hx of OHT #LVEF 55% (03/21/24) Prolonged hospitalization for advanced HF and OHT from 06/07/23-01/19/24, course with multiple complications. OHT performed 11/04/23. Path from EMB 01/21 showed negative for pathologic antibody mediated rejection. Repeat biopsy on 02/25 showed no evidence of rejection. For immunosuppression, titrated to tacrolimus goal 10-12. At time of recent discharge she was on tacrolimus 1 mg BID, along with mycophenolate 720 mg BID. Volume status on admission 01/30-03/08 was maintained on Bumex 4mg daily as needed, dosed per weight. At discharge Bumex 4mg PO was held given RJ and euvolemia. Did not receive Bumex at [facility]. Last bed weight at [facility] on 04/10 was 151 (though with full bedding in bed). Last echo 03/13/2024, EF 55%, RVSP 25. RHC 04/02 demonstrated RA 0, RV 28/3, PCWP 8, PA , CO/CI 5.32/3.09, PVR 195 dsc-5. PA sat 54%, FA 98%. EMB on 04/02 demonstrated no evidence of rejection. Immunosuppression: - Given history of likely tacro toxicity, tacro dose was slowly uptitrated during admission with goal tacro levels 8-10. - Tacro 2.5 mg morning/3 mg evening, 8.0 on 05/01 - MWF tacro levels - Given significant pancytopenia during [facility] admission, MMF was held until stably no longer neutropenic and restarted on lower dose of 180 mg BID - Continues on Prednisone 5mg daily ID Prophylaxis: - Valtrex 500mg daily (post-HD on HD days) for HSV ppx - PO Letermovir for CMV PPX - H/h Pravastatin 10mg QD while admitted given concern for pancreatitis mediated - Atovaquone 1500 mg daily - Posaconazole 300mg QD ppx held per ID given unclear indication and can worsen pancreatitis; ultimately DC'ed #RUQ/RLQ pain #Pancreatitis #Hx of abdominal infections #Superinfection (CoNS/MDR E. Coli) of RP/abdominal wall hematomas s/p IR drain placements Recent admission at [facility] (01/28 to 03/08) for +E.Coli infected RP/abdominal wall hematomas, treated with 3 IR drains, Ceftaz-Avibactam and Flagyl (d/c'd 03/16). On this admission, patient reported worsening diffuse abdominal tenderness worse in RUQ/RLQ. Workup notable for initial 03/11 CTAP demonstrating similar to prior 03/05 CTAP pancreatitis, ileus, with stable fluid collection and no new abdominal or pelvic abnormality. Repeat abdominal imaging on 03/18 CTAP notable for c/f hemorrhagic pancreatitis vs bleeding pseudoaneurysm (though reassuringly no active extravasation). Overall, suspect worsening pancreatitis as primary etiology of abdominal pain. MRCP(03/22/24) demonstrated persistent acute interstitial edematous pancreatitis. Dilated and irregular main pancreatic duct, new since January, may be related to pancreatitis. However underlying pancreatic neoplasm must be considered. Abdominal pain resolved during last week of February 2024 following aggressive antibiotic regimen. - GI to perform EUS/ERCP in 6-8 weeks from resolution of current episode to evaluate MRCP findings. Abdominal drains removed on 04/04/24- 04/05/24 once met criteria for removal of < 10cc output over 48 hours. - Pravastatin held due to concern for medication induced pancreatitis, DCed upon [facility] admission as was not getting - No abdominal pain, TBili WNL, Alk Phos mildly elevated, otherwise normal #Hx of Ileus #[employer] saw patient during recent admission and recommended thin liquids with chin tuck and regular solids. Permitted PO diet, dependent on TFs via NGT due to nausea - Check EKG re QTc if PRNs are needed - QTc 535ms on 04/12 #Anxiety In the setting of a prolonged hospitalization -Psych consulted - PRN atarax 25mg q 6hr - Lexapro 5mg daily - SW following - [facility] Psych consulted and following, stopped Lexapro 5mg daily, started Remeron 7.5mg QHS on 04/17 #Insomnia - Poor sleep, taking Melatonin 3mg PRN and Trazodone 25mg PRN - Remeron as above #AoCD #MATTHIAS #Jewish Last transfusion November 07, 2023 in the setting of her OHT. Hgb remains stable without transfusion. Iron studies demonstrated MATTHIAS thus given IV iron 200 mg x5 days (03/24-03/28). Repeat iron studies demonstrating fully repleted iron. Initiated on epoetin 4000U q14 days bumped to RETACRIT epoetin azalia-epbx 6000U three times weekly. Hemolysis labs (03/21/24) negative. - Monitoring H/H, steadily improving #B/l pleural effusions, s/p PleurX Previously had R pleural effusion s/p R thora (01/11) with pleurx placement on 01/16. Cap and drain MWF Last drained 75cc on 04/08 Patient developed chest pain 04/09 related to Pleurx drainage. Seen by thoracic team. No acute issues and assessed that pain was likely due to irritation from draining against stiff lungs. Instructed team to be careful with draining and to stop the drain at the earliest sign of pain from patient. - Patient declines Pleurx drainage, remains on RA - Surveillance CXR on 04/18 Quality Clinical Documentation: Hyperphosphatemia (Present on Admission) . Treating . Phosphorus of 4.9 on 04/26/2024 Resolved: #VRE bacteremia #MecA+ Staph epidermis bacteremia Unclear source of VRE bacteremia (Bcx 03/18). Patient with known pancreatitis and hx of multiple intra-abdominal infections (see below). Given multiple chronic drains/lines, also concerned about line/drain-associated infection. On, 03/22: Bcx growing staph epi and MeCA Treated with antibiotics guided by ID recommendations as below: - Linezolid 600 mg q12h (03/24 - 04/03) - Daptomycin 8 mg/kg q48hr, timed post-HD (03/19-03/24) - Ceftazidime-avibactam 1.25g q8hr (03/19-03/20, 03/21-03/25) - Metronidazole (last given 03/16, 03/18 -03/24) #History of Leukopenia #History of Neutropenia Most likely 2/2 to immunosuppressive meds iso RJ. CMV VL on 03/28 undetectable with next check scheduled for 04/12/24 GCSF given on 03/21/24 ANC<500 #Diarrhea Ongoing diarrhea since admission with periods of improvement as well as worsening. Extensive infectious workup performed on numerous dates remained negative. Stool pancreatic elastase resulted low, indicating component of exocrine pancreatic insufficiency (EPI) thus initiated on Creon on 04/02, which was switched to VIOKACE on 04/08. Multiple formulations of tube feeds trialed. - TF: [facility] [employer] Renal Support 1.8 - Diarrhea most likely multifactorial with significant contributions from EPI and prolonged antibiosis - No longer with diarrhea Assessment & Plan (04/30/2024 3:30 PM EST): #Hx of OHT #LVEF 55% (03/21/24) Prolonged hospitalization for advanced HF and OHT from 06/07/23-01/19/24, course with multiple complications. OHT performed 11/04/23. Path from EMB 01/21 showed negative for pathologic antibody mediated rejection. Repeat biopsy on 02/25 showed no evidence of rejection. For immunosuppression, titrated to tacrolimus goal 10-12. At time of recent discharge she was on tacrolimus 1 mg BID, along with mycophenolate 720 mg BID. Volume status on admission 01/30-03/08 was maintained on Bumex 4mg daily as needed, dosed per weight. At discharge Bumex 4mg PO was held given RJ and euvolemia. Did not receive Bumex at [facility]. Last bed weight at [facility] on 04/10 was 151 (though with full bedding in bed). Last echo 03/13/2024, EF 55%, RVSP 25. RHC 04/02 demonstrated RA 0, RV 28/3, PCWP 8, PA /, CO/CI 5.32/3.09, PVR 195 dsc-5. PA sat 54%, FA 98%. EMB on 04/02 demonstrated no evidence of rejection. Immunosuppression: - Given history of likely tacro toxicity, tacro dose was slowly uptitrated during admission with goal tacro levels 8-10. - Tacro 2.5 mg morning/3 mg evening, 8.9 on 04/29 - MWF tacro levels - Given significant pancytopenia during [facility] admission, MMF was held until stably no longer neutropenic and restarted on lower dose of 180 mg BID - Continues on Prednisone 5mg daily ID Prophylaxis: - Valtrex 500mg daily (post-HD on HD days) for HSV ppx - PO Letermovir for CMV PPX - H/h Pravastatin 10mg QD while admitted given concern for pancreatitis mediated - Atovaquone 1500 mg daily - Posaconazole 300mg QD ppx held per ID given unclear indication and can worsen pancreatitis; ultimately DC'ed #RUQ/RLQ pain #Pancreatitis #Hx of abdominal infections #Superinfection (CoNS/MDR E. Coli) of RP/abdominal wall hematomas s/p IR drain placements Recent admission at [facility] (01/28 to 03/08) for +E.Coli infected RP/abdominal wall hematomas, treated with 3 IR drains, Ceftaz-Avibactam and Flagyl (d/c'd 03/16). On this admission, patient reported worsening diffuse abdominal tenderness worse in RUQ/RLQ. Workup notable for initial 03/11 CTAP demonstrating similar to prior 03/05 CTAP pancreatitis, ileus, with stable fluid collection and no new abdominal or pelvic abnormality. Repeat abdominal imaging on 03/18 CTAP notable for c/f hemorrhagic pancreatitis vs bleeding pseudoaneurysm (though reassuringly no active extravasation). Overall, suspect worsening pancreatitis as primary etiology of abdominal pain. MRCP(03/22/24) demonstrated persistent acute interstitial edematous pancreatitis. Dilated and irregular main pancreatic duct, new since January, may be related to pancreatitis. However underlying pancreatic neoplasm must be considered. Abdominal pain resolved during last week of February 2024 following aggressive antibiotic regimen. - GI to perform EUS/ERCP in 6-8 weeks from resolution of current episode to evaluate MRCP findings. Abdominal drains removed on 04/04/24- 04/05/24 once met criteria for removal of < 10cc output over 48 hours. 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 Permitted PO diet, dependent on TFs via NGT due to nausea - Check EKG re QTc if PRNs are needed - QTc 535ms on 04/12 #Anxiety In the setting of a prolonged hospitalization -Psych consulted - PRN atarax 25mg q 6hr - Trazodone 25mg PRN QHS for sleep - Lexapro 5mg daily - SW following - Poor sleep, taking Melatonin 3mg and Trazodone 25mg, will increase Melatonin, ? If Remeron would be a good choice for both sleep and appetite? - [facility] Psych consulted and following, stop Lexapro 5mg daily, start Remeron 7.5mg QHS on 04/17 #AoCD #MATTHIAS #Jewish Last transfusion November 07, 2023 in the setting of her OHT. Hgb remains stable without transfusion. Iron studies demonstrated MATTHIAS thus given IV iron 200 mg x5 days (03/24-03/28). Repeat iron studies demonstrating fully repleted iron. Initiated on epoetin 4000U q14 days bumped to RETACRIT epoetin azalia-epbx 6000U three times weekly. Hemolysis labs (03/21/24) negative. - Monitoring H/H, steadily improving #B/l pleural effusions, s/p PleurX Previously had R pleural effusion s/p R thora (01/11) with pleurx placement on 01/16. Cap and drain MWF Last drained 75cc on 04/08 Patient developed chest pain 04/09 related to Pleurx drainage. Seen by thoracic team. No acute issues and assessed that pain was likely due to irritation from draining against stiff lungs. Instructed team to be careful with draining and to stop the drain at the earliest sign of pain from patient. - Patient declines Pleurx drainage, remains on RA - Surveillance CXR on 04/18 Quality Clinical Documentation: Hyperphosphatemia (Present on Admission) . Treating . Phosphorus of 4.9 on 04/26/2024 Resolved: #VRE bacteremia #MecA+ Staph epidermis bacteremia Unclear source of VRE bacteremia (Bcx 03/18). Patient with known pancreatitis and hx of multiple intra-abdominal infections (see below). Given multiple chronic drains/lines, also concerned about line/drain-associated infection. On, 03/22: Bcx growing staph epi and MeCA Treated with antibiotics guided by ID recommendations as below: - Linezolid 600 mg q12h (03/24 - 04/03) - Daptomycin 8 mg/kg q48hr, timed post-HD (03/19-03/24) - Ceftazidime-avibactam 1.25g q8hr (03/19-03/20, 03/21-03/25) - Metronidazole (last given 03/16, 03/18 -03/24) #History of Leukopenia #History of Neutropenia Most likely 2/2 to immunosuppressive meds iso RJ. CMV VL on 03/28 undetectable with next check scheduled for 04/12/24 GCSF given on 03/21/24 ANC<500 #Diarrhea Ongoing diarrhea since admission with periods of improvement as well as worsening. Extensive infectious workup performed on numerous dates remained negative. Stool pancreatic elastase resulted low, indicating component of exocrine pancreatic insufficiency (EPI) thus initiated on Creon on 04/02, which was switched to VIOKACE on 04/08. Multiple formulations of tube feeds trialed. - TF: [facility] [employer] Renal Support 1.8 - Diarrhea most likely multifactorial with significant contributions from EPI and prolonged antibiosis - No longer with diarrhea Assessment & Plan (04/29/2024 3:05 PM EST): #Hx of OHT #LVEF 55% (03/21/24) Prolonged hospitalization for advanced HF and OHT from 06/07/23-01/19/24, course with multiple complications. OHT performed 11/04/23. Path from EMB 01/21 showed negative for pathologic antibody mediated rejection. Repeat biopsy on 02/25 showed no evidence of rejection. For immunosuppression, titrated to tacrolimus goal 10-12. At time of recent discharge she was on tacrolimus 1 mg BID, along with mycophenolate 720 mg BID. Volume status on admission 01/30-03/08 was maintained on Bumex 4mg daily as needed, dosed per weight. At discharge Bumex 4mg PO was held given RJ and euvolemia. Did not receive Bumex at [facility]. Last bed weight at [facility] on 04/10 was 151 (though with full bedding in bed). Last echo 03/13/2024, EF 55%, RVSP 25. RHC 04/02 demonstrated RA 0, RV 28/3, PCWP 8, PA /14/21, CO/CI 5.32/3.09, PVR 195 dsc-5. PA sat 54%, FA 98%. EMB on 04/02 demonstrated no evidence of rejection. Immunosuppression: - Given history of likely tacro toxicity, tacro dose was slowly uptitrated during admission with goal tacro levels 8-10. - Tacro 2.5 mg morning/3 mg evening, 8.9 on 04/29 - MWF tacro levels - Given significant pancytopenia during [facility] admission, MMF was held until stably no longer neutropenic and restarted on lower dose of 180 mg BID - Continues on Prednisone 5mg daily ID Prophylaxis: - Valtrex 500mg daily (post-HD on HD days) for HSV ppx - PO Letermovir for CMV PPX - H/h Pravastatin 10mg QD while admitted given concern for pancreatitis mediated - Atovaquone 1500 mg daily - Posaconazole 300mg QD ppx held per ID given unclear indication and can worsen pancreatitis; ultimately DC'ed #RUQ/RLQ pain #Pancreatitis #Hx of abdominal infections #Superinfection (CoNS/MDR E. Coli) of RP/abdominal wall hematomas s/p IR drain placements Recent admission at [facility] (01/28 to 03/08) for +E.Coli infected RP/abdominal wall hematomas, treated with 3 IR drains, Ceftaz-Avibactam and Flagyl (d/c'd 03/16). On this admission, patient reported worsening diffuse abdominal tenderness worse in RUQ/RLQ. Workup notable for initial 03/11 CTAP demonstrating similar to prior 03/05 CTAP pancreatitis, ileus, with stable fluid collection and no new abdominal or pelvic abnormality. Repeat abdominal imaging on 03/18 CTAP notable for c/f hemorrhagic pancreatitis vs bleeding pseudoaneurysm (though reassuringly no active extravasation). Overall, suspect worsening pancreatitis as primary etiology of abdominal pain. MRCP(03/22/24) demonstrated persistent acute interstitial edematous pancreatitis. Dilated and irregular main pancreatic duct, new since January, may be related to pancreatitis. However underlying pancreatic neoplasm must be considered. Abdominal pain resolved during last week of February 2024 following aggressive antibiotic regimen. - GI to perform EUS/ERCP in 6-8 weeks from resolution of current episode to evaluate MRCP findings. Abdominal drains removed on 04/04/24- 04/05/24 once met criteria for removal of < 10cc output over 48 hours. 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 Permitted PO diet, dependent on TFs via NGT due to nausea - Check EKG re QTc if PRNs are needed - QTc 535ms on 04/12 #Anxiety In the setting of a prolonged hospitalization -Psych consulted - PRN atarax 25mg q 6hr - Trazodone 25mg PRN QHS for sleep - Lexapro 5mg daily - SW following - Poor sleep, taking Melatonin 3mg and Trazodone 25mg, will increase Melatonin, ? If Remeron would be a good choice for both sleep and appetite? - [facility] Psych consulted and following, stop Lexapro 5mg daily, start Remeron 7.5mg QHS on 04/17 #AoCD #MATTHIAS #Jewish Last transfusion November 07, 2023 in the setting of her OHT. Hgb remains stable without transfusion. Iron studies demonstrated MATTHIAS thus given IV iron 200 mg x5 days (03/24-03/28). Repeat iron studies demonstrating fully repleted iron. Initiated on epoetin 4000U q14 days bumped to RETACRIT epoetin azalia-epbx 6000U three times weekly. Hemolysis labs (03/21/24) negative. - Monitoring H/H, steadily improving #B/l pleural effusions, s/p PleurX Previously had R pleural effusion s/p R thora (01/11) with pleurx placement on 01/16. Cap and drain MWF Last drained 75cc on 04/08 Patient developed chest pain 04/09 related to Pleurx drainage. Seen by thoracic team. No acute issues and assessed that pain was likely due to irritation from draining against stiff lungs. Instructed team to be careful with draining and to stop the drain at the earliest sign of pain from patient. - Patient declines Pleurx drainage, remains on RA - Surveillance CXR on 04/18 Quality Clinical Documentation: Hyperphosphatemia (Present on Admission) . Treating . Phosphorus of 4.9 on 04/26/2024 Resolved: #VRE bacteremia #MecA+ Staph epidermis bacteremia Unclear source of VRE bacteremia (Bcx 03/18). Patient with known pancreatitis and hx of multiple intra-abdominal infections (see below). Given multiple chronic drains/lines, also concerned about line/drain-associated infection. On, 03/22: Bcx growing staph epi and MeCA Treated with antibiotics guided by ID recommendations as below: - Linezolid 600 mg q12h (03/24 - 04/03) - Daptomycin 8 mg/kg q48hr, timed post-HD (03/19-03/24) - Ceftazidime-avibactam 1.25g q8hr (03/19-03/20, 03/21-03/25) - Metronidazole (last given 03/16, 03/18 -12/29) #History of Leukopenia #History of Neutropenia Most likely 2/2 to immunosuppressive meds iso RJ. CMV VL on 03/28 undetectable with next check scheduled for 04/12/24 GCSF given on 03/21/24 ANC<500 #Diarrhea Ongoing diarrhea since admission with periods of improvement as well as worsening. Extensive infectious workup performed on numerous dates remained negative. Stool pancreatic elastase resulted low, indicating component of exocrine pancreatic insufficiency (EPI) thus initiated on Creon on 04/02, which was switched to VIOKACE on 04/08. Multiple formulations of tube feeds trialed. - TF: [employer] Renal Support 1.8 - Diarrhea most likely multifactorial with significant contributions from EPI and prolonged antibiosis - No longer with diarrhea Assessment & Plan (04/28/2024 1:20 PM EST): #Hx of OHT #LVEF 55% (03/21/24) Prolonged hospitalization for advanced HF and OHT from 06/07/23-01/19/24, course with multiple complications. OHT performed 11/04/23. Path from EMB 01/21 showed negative for pathologic antibody mediated rejection. Repeat biopsy on 02/25 showed no evidence of rejection. For immunosuppression, titrated to tacrolimus goal 10-12. At time of recent discharge she was on tacrolimus 1 mg BID, along with mycophenolate 720 mg BID. Volume status on admission 01/30-03/08 was maintained on Bumex 4mg daily as needed, dosed per weight. At discharge Bumex 4mg PO was held given RJ and euvolemia. Did not receive Bumex at [facility]. Last bed weight at [facility] on 04/10 was 151 (though with full bedding in bed). Last echo 03/13/2024, EF 55%, RVSP 25. RHC 04/02 demonstrated RA 0, RV 28/3, PCWP 8, PA //21, CO/CI 5.32/3.09, PVR 195 dsc-5. PA sat 54%, FA 98%. EMB on 04/02 demonstrated no evidence of rejection. Immunosuppression: - Given history of likely tacro toxicity, tacro dose was slowly uptitrated during admission with goal tacro levels 8-10. - Tacro 2.5 mg morning/3 mg evening, 8.6 on 04/26 - MWF tacro levels - Given significant pancytopenia during [facility] admission, MMF was held until stably no longer neutropenic and restarted on lower dose of 180 mg BID - Continues on Prednisone 5mg daily ID Prophylaxis: - Valtrex 500mg daily (post-HD on HD days) for HSV ppx - PO Letermovir for CMV PPX - H/h Pravastatin 10mg QD while admitted given concern for pancreatitis mediated - Atovaquone 1500 mg daily - Posaconazole 300mg QD ppx held per ID given unclear indication and can worsen pancreatitis; ultimately DC'ed #Diarrhea Ongoing diarrhea since admission with periods of improvement as well as worsening. Extensive infectious workup performed on numerous dates remained negative. Stool pancreatic elastase resulted low, indicating component of exocrine pancreatic insufficiency (EPI) thus initiated on Creon on 04/02, which was switched to VIOKACE on 04/08. Multiple formulations of tube feeds trialed. - TF: [employer] Renal Support 1.8 - Diarrhea most likely multifactorial with significant contributions from EPI and prolonged antibiosis. - Guar gum trialed and ultimately DCed - Imdoium 2mg 4x/day, held upon admission given constipation - Continue Reglan 10 mg TID (goal to prevent N/V) patient feels she can do without this, dose reduced to 5mg TID and made PRN - No longer with diarrhea #RUQ/RLQ pain #Pancreatitis #Hx of abdominal infections #Superinfection (CoNS/MDR E. Coli) of RP/abdominal wall hematomas s/p IR drain placements Recent admission at [facility] (01/28 to 03/08) for +E.Coli infected RP/abdominal wall hematomas, treated with 3 IR drains, Ceftaz-Avibactam and Flagyl (d/c'd 03/16). On this admission, patient reported worsening diffuse abdominal tenderness worse in RUQ/RLQ. Workup notable for initial 03/11 CTAP demonstrating similar to prior 03/05 CTAP pancreatitis, ileus, with stable fluid collection and no new abdominal or pelvic abnormality. Repeat abdominal imaging on 03/18 CTAP notable for c/f hemorrhagic pancreatitis vs bleeding pseudoaneurysm (though reassuringly no active extravasation). Overall, suspect worsening pancreatitis as primary etiology of abdominal pain. MRCP(03/22/24) demonstrated persistent acute interstitial edematous pancreatitis. Dilated and irregular main pancreatic duct, new since January, may be related to pancreatitis. However underlying pancreatic neoplasm must be considered. Abdominal pain resolved during last week of February 2024 following aggressive antibiotic regimen. - GI to perform EUS/ERCP in 6-8 weeks from resolution of current episode to evaluate MRCP findings. Abdominal drains removed on 04/04/24- 04/05/24 once met criteria for removal of < 10cc output over 48 hours. 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 Permitted PO diet, dependent on TFs via NGT due to nausea - Check EKG re QTc if PRNs are needed - QTc 535ms on 04/12 #Anxiety In the setting of a prolonged hospitalization -Psych consulted - PRN atarax 25mg q 6hr - Trazodone 25mg PRN QHS for sleep - Lexapro 5mg daily - SW following - Poor sleep, taking Melatonin 3mg and Trazodone 25mg, will increase Melatonin, ? If Remeron would be a good choice for both sleep and appetite? - [facility] Psych consulted and following, stop Lexapro 5mg daily, start Remeron 7.5mg QHS on 04/17 #AoCD #MATTHIAS #[place] Last transfusion November 07, 2023 in the setting of her OHT. Hgb remains stable without transfusion. Iron studies demonstrated MATTHIAS thus given IV iron 200 mg x5 days (03/24-03/28). Repeat iron studies demonstrating fully repleted iron. Initiated on epoetin 4000U q14 days bumped to RETACRIT epoetin azalia-epbx 6000U three times weekly. Hemolysis labs (03/21/24) negative. - Monitoring H/H, steadily improving #B/l pleural effusions, s/p PleurX Previously had R pleural effusion s/p R thora (01/11) with pleurx placement on 01/16. Cap and drain MWF Last drained 75cc on 04/08 Patient developed chest pain 04/09 related to Pleurx drainage. Seen by thoracic team. No acute issues and assessed that pain was likely due to irritation from draining against stiff lungs. Instructed team to be careful with draining and to stop the drain at the earliest sign of pain from patient. - Patient declines Pleurx drainage, remains on RA - Surveillance CXR on 04/18 Quality Clinical Documentation: Hyperphosphatemia (Present on Admission) . Treating . Phosphorus of 4.9 on 04/26/2024 Resolved: #VRE bacteremia #MecA+ Staph epidermis bacteremia Unclear source of VRE bacteremia (Bcx 03/18). Patient with known pancreatitis and hx of multiple intra-abdominal infections (see below). Given multiple chronic drains/lines, also concerned about line/drain-associated infection. On, 03/22: Bcx growing staph epi and MeCA Treated with antibiotics guided by ID recommendations as below: - Linezolid 600 mg q12h (03/24 - 04/03) - Daptomycin 8 mg/kg q48hr, timed post-HD (03/19-03/24) - Ceftazidime-avibactam 1.25g q8hr (03/19-03/20, 03/21-03/25) - Metronidazole (last given 03/16, 03/18 -03/24) #History of Leukopenia #History of Neutropenia Most likely 2/2 to immunosuppressive meds iso RJ. CMV VL on 03/28 undetectable with next check scheduled for 04/12/24 GCSF given on 03/21/24 ANC<500 Assessment & Plan (04/27/2024 2:53 PM EST): #Hx of OHT #LVEF 55% (03/21/24) Prolonged hospitalization for advanced HF and OHT from 06/07/23-01/19/24, course with multiple complications. OHT performed 11/04/23. Path from EMB 01/21 showed negative for pathologic antibody mediated rejection. Repeat biopsy on 02/25 showed no evidence of rejection. For immunosuppression, titrated to tacrolimus goal -. At time of recent discharge she was on tacrolimus 1 mg BID, along with mycophenolate 720 mg BID. Volume status on admission 01/30-03/08 was maintained on Bumex 4mg daily as needed, dosed per weight. At discharge Bumex 4mg PO was held given RJ and euvolemia. Did not receive Bumex at [facility]. Last bed weight at [facility] on 04/10 was 151 (though with full bedding in bed). Last echo 03/13/2024, EF 55%, RVSP 25. RHC 04/02 demonstrated RA 0, RV 28/3, PCWP 8, PA /, CO/CI 5.32/3.09, PVR 195 dsc-5. PA sat 54%, FA 98%. EMB on 04/02 demonstrated no evidence of rejection. Immunosuppression: - Given history of likely tacro toxicity, tacro dose was slowly uptitrated during admission with goal tacro levels 8-10. - Tacro 2.5 mg morning/3 mg evening, 9.3 on 04/24 - MWF tacro levels - Given significant pancytopenia during [facility] admission, MMF was held until stably no longer neutropenic and restarted on lower dose of 180 mg BID - Continues on Prednisone 5mg daily ID Prophylaxis: - Valtrex 500mg daily (post-HD on HD days) for HSV ppx - PO Letermovir for CMV PPX - H/h Pravastatin 10mg QD while admitted given concern for pancreatitis mediated - Atovaquone 1500 mg daily - Posaconazole 300mg QD ppx held per ID given unclear indication and can worsen pancreatitis; ultimately DC'ed #Diarrhea Ongoing diarrhea since admission with periods of improvement as well as worsening. Extensive infectious workup performed on numerous dates remained negative. Stool pancreatic elastase resulted low, indicating component of exocrine pancreatic insufficiency (EPI) thus initiated on Creon on 04/02, which was switched to VIOKACE on 04/08. Multiple formulations of tube feeds trialed. - TF: [employer] Renal Support 1.8 - Diarrhea most likely multifactorial with significant contributions from EPI and prolonged antibiosis. - Guar gum trialed and ultimately DCed - Imdoium 2mg 4x/day, held upon admission given constipation - Continue Reglan 10 mg TID (goal to prevent N/V) patient feels she can do without this, dose reduced to 5mg TID and made PRN - No longer with diarrhea #RUQ/RLQ pain #Pancreatitis #Hx of abdominal infections #Superinfection (CoNS/MDR E. Coli) of RP/abdominal wall hematomas s/p IR drain placements Recent admission at [facility] (01/28 to 03/08) for +E.Coli infected RP/abdominal wall hematomas, treated with 3 IR drains, Ceftaz-Avibactam and Flagyl (d/c'd 03/16). On this admission, patient reported worsening diffuse abdominal tenderness worse in RUQ/RLQ. Workup notable for initial 03/11 CTAP demonstrating similar to prior 03/05 CTAP pancreatitis, ileus, with stable fluid collection and no new abdominal or pelvic abnormality. Repeat abdominal imaging on 03/18 CTAP notable for c/f hemorrhagic pancreatitis vs bleeding pseudoaneurysm (though reassuringly no active extravasation). Overall, suspect worsening pancreatitis as primary etiology of abdominal pain. MRCP(03/22/24) demonstrated persistent acute interstitial edematous pancreatitis. Dilated and irregular main pancreatic duct, new since January, may be related to pancreatitis. However underlying pancreatic neoplasm must be considered. Abdominal pain resolved during last week of February 2024 following aggressive antibiotic regimen. - GI to perform EUS/ERCP in 6-8 weeks from resolution of current episode to evaluate MRCP findings. Abdominal drains removed on 04/04/24- 04/05/24 once met criteria for removal of < 10cc output over 48 hours. 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 Permitted PO diet, dependent on TFs via NGT due to nausea - Check EKG re QTc if PRNs are needed - QTc 535ms on 04/12 #Anxiety In the setting of a prolonged hospitalization -Psych consulted - PRN atarax 25mg q 6hr - Trazodone 25mg PRN QHS for sleep - Lexapro 5mg daily - SW following - Poor sleep, taking Melatonin 3mg and Trazodone 25mg, will increase Melatonin, ? If Remeron would be a good choice for both sleep and appetite? - [facility] Psych consulted and following, stop Lexapro 5mg daily, start Remeron 7.5mg QHS on 04/17 #AoCD #MATTHIAS #Jewish Last transfusion November 07, 2023 in the setting of her OHT. Hgb remains stable without transfusion. Iron studies demonstrated MATTHIAS thus given IV iron 200 mg x5 days (03/24-03/28). Repeat iron studies demonstrating fully repleted iron. Initiated on epoetin 4000U q14 days bumped to RETACRIT epoetin azalia-epbx 6000U three times weekly. Hemolysis labs (03/21/24) negative. - Monitoring H/H, steadily improving #B/l pleural effusions, s/p PleurX Previously had R pleural effusion s/p R thora (01/11) with pleurx placement on 01/16. Cap and drain MWF Last drained 75cc on 04/08 Patient developed chest pain 04/09 related to Pleurx drainage. Seen by thoracic team. No acute issues and assessed that pain was likely due to irritation from draining against stiff lungs. Instructed team to be careful with draining and to stop the drain at the earliest sign of pain from patient. - Patient declines Pleurx drainage, remains on RA - Surveillance CXR on 04/18 Quality Clinical Documentation: Hyperphosphatemia (Present on Admission) . Treating . Phosphorus of 4.9 on 04/26/2024 Resolved: #VRE bacteremia #MecA+ Staph epidermis bacteremia Unclear source of VRE bacteremia (Bcx 03/18). Patient with known pancreatitis and hx of multiple intra-abdominal infections (see below). Given multiple chronic drains/lines, also concerned about line/drain-associated infection. On, 03/22: Bcx growing staph epi and MeCA Treated with antibiotics guided by ID recommendations as below: - Linezolid 600 mg q12h (03/24 - 04/03) - Daptomycin 8 mg/kg q48hr, timed post-HD (03/19-03/24) - Ceftazidime-avibactam 1.25g q8hr (03/19-03/20, 03/21-03/25) - Metronidazole (last given 03/16, 03/18 -03/24) #History of Leukopenia #History of Neutropenia Most likely 2/2 to immunosuppressive meds iso RJ. CMV VL on 03/28 undetectable with next check scheduled for 04/12/24 GCSF given on 03/21/24 ANC<500 Assessment & Plan (04/26/2024 11:41 AM EST): #Hx of OHT #LVEF 55% (03/21/24) Prolonged hospitalization for advanced HF and OHT from 06/07/23-01/19/24, course with multiple complications. OHT performed 11/04/23. Path from EMB 01/21 showed negative for pathologic antibody mediated rejection. Repeat biopsy on 02/25 showed no evidence of rejection. For immunosuppression, titrated to tacrolimus goal 10-12. At time of recent discharge she was on tacrolimus 1 mg BID, along with mycophenolate 720 mg BID. Volume status on admission 01/30-03/08 was maintained on Bumex 4mg daily as needed, dosed per weight. At discharge Bumex 4mg PO was held given RJ and euvolemia. Did not receive Bumex at [facility]. Last bed weight at [facility] on 04/10 was 151 (though with full bedding in bed). Last echo 03/13/2024, EF 55%, RVSP 25. RHC 04/02 demonstrated RA 0, RV 28/3, PCWP 8, PA /, CO/CI 5.32/3.09, PVR 195 dsc-5. PA sat 54%, FA 98%. EMB on 04/02 demonstrated no evidence of rejection. Immunosuppression: - Given history of likely tacro toxicity, tacro dose was slowly uptitrated during admission with goal tacro levels 8-10. - Tacro 2.5 mg morning/3 mg evening, 9.3 on 04/24 - MWF tacro levels - Given significant pancytopenia during [facility] admission, MMF was held until stably no longer neutropenic and restarted on lower dose of 180 mg BID - Continues on Prednisone 5mg daily ID Prophylaxis: - Valtrex 500mg daily (post-HD on HD days) for HSV ppx - PO Letermovir for CMV PPX - H/h Pravastatin 10mg QD while admitted given concern for pancreatitis mediated - Atovaquone 1500 mg daily - Posaconazole 300mg QD ppx held per ID given unclear indication and can worsen pancreatitis; ultimately DC'ed #Diarrhea Ongoing diarrhea since admission with periods of improvement as well as worsening. Extensive infectious workup performed on numerous dates remained negative. Stool pancreatic elastase resulted low, indicating component of exocrine pancreatic insufficiency (EPI) thus initiated on Creon on 04/02, which was switched to VIOKACE on 04/08. Multiple formulations of tube feeds trialed. - TF: [employer] Renal Support 1.8 - Diarrhea most likely multifactorial with significant contributions from EPI and prolonged antibiosis. - Guar gum trialed and ultimately DCed - Imdoium 2mg 4x/day, held upon admission given constipation - Continue Reglan 10 mg TID (goal to prevent N/V) patient feels she can do without this, dose reduced to 5mg TID and made PRN - No longer with diarrhea #RUQ/RLQ pain #Pancreatitis #Hx of abdominal infections #Superinfection (CoNS/MDR E. Coli) of RP/abdominal wall hematomas s/p IR drain placements Recent admission at [facility] (01/28 to 03/08) for +E.Coli infected RP/abdominal wall hematomas, treated with 3 IR drains, Ceftaz-Avibactam and Flagyl (d/c'd 03/16). On this admission, patient reported worsening diffuse abdominal tenderness worse in RUQ/RLQ. Workup notable for initial 03/11 CTAP demonstrating similar to prior 03/05 CTAP pancreatitis, ileus, with stable fluid collection and no new abdominal or pelvic abnormality. Repeat abdominal imaging on 03/18 CTAP notable for c/f hemorrhagic pancreatitis vs bleeding pseudoaneurysm (though reassuringly no active extravasation). Overall, suspect worsening pancreatitis as primary etiology of abdominal pain. MRCP(03/22/24) demonstrated persistent acute interstitial edematous pancreatitis. Dilated and irregular main pancreatic duct, new since January, may be related to pancreatitis. However underlying pancreatic neoplasm must be considered. Abdominal pain resolved during last week of February 2024 following aggressive antibiotic regimen. - GI to perform EUS/ERCP in 6-8 weeks from resolution of current episode to evaluate MRCP findings. Abdominal drains removed on 04/04/24- 04/05/24 once met criteria for removal of < 10cc output over 48 hours. 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 Permitted PO diet, dependent on TFs via NGT due to nausea - Check EKG re QTc if PRNs are needed - QTc 535ms on 04/12 #Anxiety In the setting of a prolonged hospitalization -Psych consulted - PRN atarax 25mg q 6hr - Trazodone 25mg PRN QHS for sleep - Lexapro 5mg daily - SW following - Poor sleep, taking Melatonin 3mg and Trazodone 25mg, will increase Melatonin, ? If Remeron would be a good choice for both sleep and appetite? - [facility] Psych consulted and following, stop Lexapro 5mg daily, start Remeron 7.5mg QHS on 04/17 #AoCD #MATTHIAS #Jewish Last transfusion November 07, 2023 in the setting of her OHT. Hgb remains stable without transfusion. Iron studies demonstrated MATTHIAS thus given IV iron 200 mg x5 days (03/24-03/28). Repeat iron studies demonstrating fully repleted iron. Initiated on epoetin 4000U q14 days bumped to RETACRIT epoetin azalia-epbx 6000U three times weekly. Hemolysis labs (03/21/24) negative. - Monitoring H/H, steadily improving #B/l pleural effusions, s/p PleurX Previously had R pleural effusion s/p R thora (01/11) with pleurx placement on 01/16. Cap and drain MWF Last drained 75cc on 04/08 Patient developed chest pain 04/09 related to Pleurx drainage. Seen by thoracic team. No acute issues and assessed that pain was likely due to irritation from draining against stiff lungs. Instructed team to be careful with draining and to stop the drain at the earliest sign of pain from patient. - Patient declines Pleurx drainage, remains on RA - Surveillance CXR on 04/18 Quality Clinical Documentation: Hyperphosphatemia (Present on Admission) . Treating . Phosphorus of 4.9 on 04/26/2024 Resolved: #VRE bacteremia #MecA+ Staph epidermis bacteremia Unclear source of VRE bacteremia (Bcx 03/18). Patient with known pancreatitis and hx of multiple intra-abdominal infections (see below). Given multiple chronic drains/lines, also concerned about line/drain-associated infection. On, 03/22: Bcx growing staph epi and MeCA Treated with antibiotics guided by ID recommendations as below: - Linezolid 600 mg q12h (03/24 - 04/03) - Daptomycin 8 mg/kg q48hr, timed post-HD (03/19-03/24) - Ceftazidime-avibactam 1.25g q8hr (03/19-03/20, 03/21-03/25) - Metronidazole (last given 03/16, 03/18 -03/24) #History of Leukopenia #History of Neutropenia Most likely 2/2 to immunosuppressive meds iso RJ. CMV VL on 03/28 undetectable with next check scheduled for 04/12/24 GCSF given on 03/21/24 ANC<500 Assessment & Plan (04/25/2024 2:20 PM EST): #Hx of OHT #LVEF 55% (03/21/24) Prolonged hospitalization for advanced HF and OHT from 06/07/23-01/19/24, course with multiple complications. OHT performed 11/04/23. Path from EMB 01/21 showed negative for pathologic antibody mediated rejection. Repeat biopsy on 02/25 showed no evidence of rejection. For immunosuppression, titrated to tacrolimus goal 10-12. At time of recent discharge she was on tacrolimus 1 mg BID, along with mycophenolate 720 mg BID. Volume status on admission 01/30-03/08 was maintained on Bumex 4mg daily as needed, dosed per weight. At discharge Bumex 4mg PO was held given RJ and euvolemia. Did not receive Bumex at [facility]. Last bed weight at [facility] on 04/10 was 151 (though with full bedding in bed). Last echo 03/13/2024, EF 55%, RVSP 25. RHC 04/02 demonstrated RA 0, RV 28/3, PCWP 8, PA 28/14/21, CO/CI 5.32/3.09, PVR 195 dsc-5. PA sat 54%, FA 98%. EMB on 04/02 demonstrated no evidence of rejection. Immunosuppression: - Given history of likely tacro toxicity, tacro dose was slowly uptitrated during admission with goal tacro levels 8-10. - Tacro 2.5 mg morning/3 mg evening, 9.3 on 04/24 - MWF tacro levels - Given significant pancytopenia during [facility] admission, MMF was held until stably no longer neutropenic and restarted on lower dose of 180 mg BID - Continues on Prednisone 5mg daily ID Prophylaxis: - Valtrex 500mg daily (post-HD on HD days) for HSV ppx - PO Letermovir for CMV PPX - H/h Pravastatin 10mg QD while admitted given concern for pancreatitis mediated - Atovaquone 1500 mg daily - Posaconazole 300mg QD ppx held per ID given unclear indication and can worsen pancreatitis; ultimately DC'ed #Diarrhea Ongoing diarrhea since admission with periods of improvement as well as worsening. Extensive infectious workup performed on numerous dates remained negative. Stool pancreatic elastase resulted low, indicating component of exocrine pancreatic insufficiency (EPI) thus initiated on Creon on 04/02, which was switched to VIOKACE on 04/08. Multiple formulations of tube feeds trialed. - TF: [employer] Renal Support 1.8 - Diarrhea most likely multifactorial with significant contributions from EPI and prolonged antibiosis. - Guar gum trialed and ultimately DCed - Imdoium 2mg 4x/day, held upon admission given constipation - Continue Reglan 10 mg TID (goal to prevent N/V) patient feels she can do without this, dose reduced to 5mg TID and made PRN - No longer with diarrhea #RUQ/RLQ pain #Pancreatitis #Hx of abdominal infections #Superinfection (CoNS/MDR E. Coli) of RP/abdominal wall hematomas s/p IR drain placements Recent admission at [facility] (01/28 to 03/08) for +E.Coli infected RP/abdominal wall hematomas, treated with 3 IR drains, Ceftaz-Avibactam and Flagyl (d/c'd 03/16). On this admission, patient reported worsening diffuse abdominal tenderness worse in RUQ/RLQ. Workup notable for initial 03/11 CTAP demonstrating similar to prior 03/05 CTAP pancreatitis, ileus, with stable fluid collection and no new abdominal or pelvic abnormality. Repeat abdominal imaging on 03/18 CTAP notable for c/f hemorrhagic pancreatitis vs bleeding pseudoaneurysm (though reassuringly no active extravasation). Overall, suspect worsening pancreatitis as primary etiology of abdominal pain. MRCP(03/22/24) demonstrated persistent acute interstitial edematous pancreatitis. Dilated and irregular main pancreatic duct, new since January, may be related to pancreatitis. However underlying pancreatic neoplasm must be considered. Abdominal pain resolved during last week of February 2024 following aggressive antibiotic regimen. - GI to perform EUS/ERCP in 6-8 weeks from resolution of current episode to evaluate MRCP findings. Abdominal drains removed on 04/04/24- 04/05/24 once met criteria for removal of < 10cc output over 48 hours. 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 Permitted PO diet, dependent on TFs via NGT due to nausea - Check EKG re QTc if PRNs are needed - QTc 535ms on 04/12 #Anxiety In the setting of a prolonged hospitalization -Psych consulted - PRN atarax 25mg q 6hr - Trazodone 25mg PRN QHS for sleep - Lexapro 5mg daily - SW following - Poor sleep, taking Melatonin 3mg and Trazodone 25mg, will increase Melatonin, ? If Remeron would be a good choice for both sleep and appetite? - [facility] Psych consulted and following, stop Lexapro 5mg daily, start Remeron 7.5mg QHS on 04/17 #AoCD #MATTHIAS #Jewish Last transfusion November 07, 2023 in the setting of her OHT. Hgb remains stable without transfusion. Iron studies demonstrated MATTHIAS thus given IV iron 200 mg x5 days (03/24-03/28). Repeat iron studies demonstrating fully repleted iron. Initiated on epoetin 4000U q14 days bumped to RETACRIT epoetin azalia-epbx 6000U three times weekly. Hemolysis labs (03/21/24) negative. - Monitoring H/H, steadily improving #B/l pleural effusions, s/p PleurX Previously had R pleural effusion s/p R thora (01/11) with pleurx placement on 01/16. Cap and drain MWF Last drained 75cc on 04/08 Patient developed chest pain 04/09 related to Pleurx drainage. Seen by thoracic team. No acute issues and assessed that pain was likely due to irritation from draining against stiff lungs. Instructed team to be careful with draining and to stop the drain at the earliest sign of pain from patient. - Patient declines Pleurx drainage, remains on RA - Surveillance CXR on 04/18 Quality Clinical Documentation: Resolved: #VRE bacteremia #MecA+ Staph epidermis bacteremia Unclear source of VRE bacteremia (Bcx 03/18). Patient with known pancreatitis and hx of multiple intra-abdominal infections (see below). Given multiple chronic drains/lines, also concerned about line/drain-associated infection. On, 03/22: Bcx growing staph epi and MeCA Treated with antibiotics guided by ID recommendations as below: - Linezolid 600 mg q12h (03/24 - 04/03) - Daptomycin 8 mg/kg q48hr, timed post-HD (03/19-03/24) - Ceftazidime-avibactam 1.25g q8hr (03/19-03/20, 03/21-03/25) - Metronidazole (last given 03/16, 03/18 -03/24) #History of Leukopenia #History of Neutropenia Most likely 2/2 to immunosuppressive meds iso RJ. CMV VL on 03/28 undetectable with next check scheduled for 04/12/24 GCSF given on 03/21/24 ANC<500 Assessment & Plan (04/24/2024 8:33 PM EST): #Hx of OHT #LVEF 55% (03/21/24) Prolonged hospitalization for advanced HF and OHT from 06/07/23-01/19/24, course with multiple complications. OHT performed 11/04/23. Path from EMB 01/21 showed negative for pathologic antibody mediated rejection. Repeat biopsy on 02/25 showed no evidence of rejection. For immunosuppression, titrated to tacrolimus goal 10-12. At time of recent discharge she was on tacrolimus 1 mg BID, along with mycophenolate 720 mg BID. Volume status on admission 01/30-03/08 was maintained on Bumex 4mg daily as needed, dosed per weight. At discharge Bumex 4mg PO was held given RJ and euvolemia. Did not receive Bumex at [facility]. Last bed weight at [facility] on 04/10 was 151 (though with full bedding in bed). Last echo 03/13/2024, EF 55%, RVSP 25. RHC 04/02 demonstrated RA 0, RV 28/3, PCWP 8, PA /, CO/CI 5.32/3.09, PVR 195 dsc-5. PA sat 54%, FA 98%. EMB on 04/02 demonstrated no evidence of rejection. Immunosuppression: - Given history of likely tacro toxicity, tacro dose was slowly uptitrated during admission with goal tacro levels 8-10. - Tacro 2.5 mg morning/3 mg evening, 9.3 on 04/24 - MWF tacro levels - Given significant pancytopenia during [facility] admission, MMF was held until stably no longer neutropenic and restarted on lower dose of 180 mg BID - Continues on Prednisone 5mg daily ID Prophylaxis: - Valtrex 500mg daily (post-HD on HD days) for HSV ppx - PO Letermovir for CMV PPX - H/h Pravastatin 10mg QD while admitted given concern for pancreatitis mediated - Atovaquone 1500 mg daily - Posaconazole 300mg QD ppx held per ID given unclear indication and can worsen pancreatitis; ultimately DC'ed #Diarrhea Ongoing diarrhea since admission with periods of improvement as well as worsening. Extensive infectious workup performed on numerous dates remained negative. Stool pancreatic elastase resulted low, indicating component of exocrine pancreatic insufficiency (EPI) thus initiated on Creon on 04/02, which was switched to VIOKACE on 04/08. Multiple formulations of tube feeds trialed. - TF: [employer] Renal Support 1.8 - Diarrhea most likely multifactorial with significant contributions from EPI and prolonged antibiosis. - Guar gum trialed and ultimately DCed - Imdoium 2mg 4x/day, held upon admission given constipation - Continue Reglan 10 mg TID (goal to prevent N/V) patient feels she can do without this, dose reduced to 5mg TID and made PRN - No longer with diarrhea #RUQ/RLQ pain #Pancreatitis #Hx of abdominal infections #Superinfection (CoNS/MDR E. Coli) of RP/abdominal wall hematomas s/p IR drain placements Recent admission at [facility] (01/28 to 03/08) for +E.Coli infected RP/abdominal wall hematomas, treated with 3 IR drains, Ceftaz-Avibactam and Flagyl (d/c'd 03/16). On this admission, patient reported worsening diffuse abdominal tenderness worse in RUQ/RLQ. Workup notable for initial 03/11 CTAP demonstrating similar to prior 03/05 CTAP pancreatitis, ileus, with stable fluid collection and no new abdominal or pelvic abnormality. Repeat abdominal imaging on 03/18 CTAP notable for c/f hemorrhagic pancreatitis vs bleeding pseudoaneurysm (though reassuringly no active extravasation). Overall, suspect worsening pancreatitis as primary etiology of abdominal pain. MRCP(03/22/24) demonstrated persistent acute interstitial edematous pancreatitis. Dilated and irregular main pancreatic duct, new since January, may be related to pancreatitis. However underlying pancreatic neoplasm must be considered. Abdominal pain resolved during last week of February 2024 following aggressive antibiotic regimen. - GI to perform EUS/ERCP in 6-8 weeks from resolution of current episode to evaluate MRCP findings. Abdominal drains removed on 04/04/24- 04/05/24 once met criteria for removal of < 10cc output over 48 hours. 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 Permitted PO diet, dependent on TFs via NGT due to nausea - Check EKG re QTc if PRNs are needed - QTc 535ms on 04/12 #Anxiety In the setting of a prolonged hospitalization -Psych consulted - PRN atarax 25mg q 6hr - Trazodone 25mg PRN QHS for sleep - Lexapro 5mg daily - SW following - Poor sleep, taking Melatonin 3mg and Trazodone 25mg, will increase Melatonin, ? If Remeron would be a good choice for both sleep and appetite? - [facility] Psych consulted and following, stop Lexapro 5mg daily, start Remeron 7.5mg QHS on 04/17 #AoCD #MATTHIAS #Jewish Last transfusion November 07, 2023 in the setting of her OHT. Hgb remains stable without transfusion. Iron studies demonstrated MATTHIAS thus given IV iron 200 mg x5 days (03/24-03/28). Repeat iron studies demonstrating fully repleted iron. Initiated on epoetin 4000U q14 days bumped to RETACRIT epoetin azalia-epbx 6000U three times weekly. Hemolysis labs (03/21/24) negative. - Monitoring H/H, steadily improving #B/l pleural effusions, s/p PleurX Previously had R pleural effusion s/p R thora (01/11) with pleurx placement on 01/16. Cap and drain MWF Last drained 75cc on 04/08 Patient developed chest pain 04/09 related to Pleurx drainage. Seen by thoracic team. No acute issues and assessed that pain was likely due to irritation from draining against stiff lungs. Instructed team to be careful with draining and to stop the drain at the earliest sign of pain from patient. - Patient declines Pleurx drainage, remains on RA - Surveillance CXR on 04/18 Quality Clinical Documentation: Resolved: #VRE bacteremia #MecA+ Staph epidermis bacteremia Unclear source of VRE bacteremia (Bcx 03/18). Patient with known pancreatitis and hx of multiple intra-abdominal infections (see below). Given multiple chronic drains/lines, also concerned about line/drain-associated infection. On, 03/22: Bcx growing staph epi and MeCA Treated with antibiotics guided by ID recommendations as below: - Linezolid 600 mg q12h (03/24 - 04/03) - Daptomycin 8 mg/kg q48hr, timed post-HD (03/19-03/24) - Ceftazidime-avibactam 1.25g q8hr (03/19-03/20, 03/21-03/25) - Metronidazole (last given 03/16, 03/18 -03/24) #History of Leukopenia #History of Neutropenia Most likely 2/2 to immunosuppressive meds iso RJ. CMV VL on 03/28 undetectable with next check scheduled for 04/12/24 GCSF given on 03/21/24 ANC<500 Assessment & Plan (04/23/2024 8:20 PM EST): #Hx of OHT #LVEF 55% (03/21/24) Prolonged hospitalization for advanced HF and OHT from 06/07/23-01/19/24, course with multiple complications. OHT performed 11/04/23. Path from EMB 01/21 showed negative for pathologic antibody mediated rejection. Repeat biopsy on 02/25 showed no evidence of rejection. For immunosuppression, titrated to tacrolimus goal 01-05. At time of recent discharge she was on tacrolimus 1 mg BID, along with mycophenolate 720 mg BID. Volume status on admission 01/30-03/08 was maintained on Bumex 4mg daily as needed, dosed per weight. At discharge Bumex 4mg PO was held given RJ and euvolemia. Did not receive Bumex at [facility]. Last bed weight at [facility] on 04/10 was 151 (though with full bedding in bed). Last echo 03/13/2024, EF 55%, RVSP 25. RHC 04/02 demonstrated RA 0, RV 28/3, PCWP 8, PA /, CO/CI 5.32/3.09, PVR 195 dsc-5. PA sat 54%, FA 98%. EMB on 04/02 demonstrated no evidence of rejection. Immunosuppression: - Given history of likely tacro toxicity, tacro dose was slowly uptitrated during admission with goal tacro levels 8-10. - Tacro 2.5 mg morning/3 mg evening, 8.5 on 04/19, 11 on 04/22, recheck on 04/24 - Daily tacro levels --> MWF - Given significant pancytopenia during this admission, MMF was held until stably no longer neutropenic and restarted on lower dose of 180 mg BID. - Continues on Prednisone 5mg daily ID Prophylaxis: - Valtrex 500mg daily (post-HD on HD days) for HSV ppx - PO Letermovir for CMV PPX - H/h Pravastatin 10mg QD while admitted given concern for pancreatitis mediated - Atovaquone 1500 mg daily - Posaconazole 300mg QD ppx held per ID given unclear indication and can worsen pancreatitis; ultimately DC'ed #Diarrhea Ongoing diarrhea since admission with periods of improvement as well as worsening. Extensive infectious workup performed on numerous dates remained negative. Stool pancreatic elastase resulted low, indicating component of exocrine pancreatic insufficiency (EPI) thus initiated on Creon on 04/02, which was switched to VIOKACE on 04/08. Multiple formulations of tube feeds trialed. - TF: [employer] Renal Support 1.8 - Diarrhea most likely multifactorial with significant contributions from EPI and prolonged antibiosis. - Guar gum trialed and ultimately DCed - Imdoium 2mg 4x/day, held upon admission given constipation - Continue Reglan 10 mg TID (goal to prevent N/V) patient feels she can do without this, dose reduced to 5mg TID and made PRN - Moving bowels, no diarrhea, no constipation #RUQ/RLQ pain #Pancreatitis #Hx of abdominal infections #Superinfection (CoNS/MDR E. Coli) of RP/abdominal wall hematomas s/p IR drain placements Recent admission at [facility] (01/28 to 03/08) for +E.Coli infected RP/abdominal wall hematomas, treated with 3 IR drains, Ceftaz-Avibactam and Flagyl (d/c'd 03/16). On this admission, patient reported worsening diffuse abdominal tenderness worse in RUQ/RLQ. Workup notable for initial 03/11 CTAP demonstrating similar to prior 03/05 CTAP pancreatitis, ileus, with stable fluid collection and no new abdominal or pelvic abnormality. Repeat abdominal imaging on 03/18 CTAP notable for c/f hemorrhagic pancreatitis vs bleeding pseudoaneurysm (though reassuringly no active extravasation). Overall, suspect worsening pancreatitis as primary etiology of abdominal pain. MRCP(03/22/24) demonstrated persistent acute interstitial edematous pancreatitis. Dilated and irregular main pancreatic duct, new since January, may be related to pancreatitis. However underlying pancreatic neoplasm must be considered. Abdominal pain resolved during last week of February 2024 following aggressive antibiotic regimen. - GI to perform EUS/ERCP in 6-8 weeks from resolution of current episode to evaluate MRCP findings. Abdominal drains removed on 04/04/24- 04/05/24 once met criteria for removal of < 10cc output over 48 hours. 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 Pt tolerated PO without issue. TPN was restarted shortly after admission and continued at the time of discharge. Continues to tolerate tube feeds at goal, though with some nausea. Was controlled with spot doses of zofran for nausea. Nausea was also controlled with 1 mg ativan injections TID, which was discontinued on 04/06. She received oral ativan 04/06 and 04/07. - Check EKG re QTc if PRNs are needed - QTc 535ms on 04/12 #Anxiety In the setting of a prolonged hospitalization -Psych consulted - PRN atarax 25mg q 6hr - Trazodone 25mg PRN QHS for sleep - Lexapro 5mg daily - SW following - Poor sleep, taking Melatonin 3mg and Trazodone 25mg, will increase Melatonin, ? If Remeron would be a good choice for both sleep and appetite? - [facility] Psych consulted and following, stop Lexapro 5mg daily, start Remeron 7.5mg QHS on 04/17 #AoCD #MATTHIAS #Jewish Last transfusion November 07, 2023 in the setting of her OHT. Hgb remains stable without transfusion. Iron studies demonstrated MATTHIAS thus given IV iron 200 mg x5 days (03/24-03/28). Repeat iron studies demonstrating fully repleted iron. Initiated on epoetin 4000U q14 days bumped to RETACRIT epoetin azalia-epbx 6000U three times weekly. Hemolysis labs (03/21/24) negative. - Monitoring H/H #B/l pleural effusions, s/p PleurX Previously had R pleural effusion s/p R thora (01/11) with pleurx placement on 01/16. Cap and drain MWF Last drained 75cc on 04/08 Patient developed chest pain 04/09 related to Pleurx drainage. Seen by thoracic team. No acute issues and assessed that pain was likely due to irritation from draining against stiff lungs. Instructed team to be careful with draining and to stop the drain at the earliest sign of pain from patient. - Patient declines Pleurx drainage on 04/12 and on 04/15, remains stable on RA - Surveillance CXR on 04/18 Quality Clinical Documentation: Resolved: #VRE bacteremia #MecA+ Staph epidermis bacteremia Unclear source of VRE bacteremia (Bcx 03/18). Patient with known pancreatitis and hx of multiple intra-abdominal infections (see below). Given multiple chronic drains/lines, also concerned about line/drain-associated infection. On, 03/22: Bcx growing staph epi and MeCA Treated with antibiotics guided by ID recommendations as below: - Linezolid 600 mg q12h (03/24 - 04/03) - Daptomycin 8 mg/kg q48hr, timed post-HD (03/19-03/24) - Ceftazidime-avibactam 1.25g q8hr (03/19-03/20, 03/21-03/25) - Metronidazole (last given 03/16, 03/18 -03/24) #History of Leukopenia #History of Neutropenia Most likely 2/2 to immunosuppressive meds iso RJ. CMV VL on 03/28 undetectable with next check scheduled for 04/12/24 GCSF given on 03/21/24 ANC<500 Assessment & Plan (04/22/2024 5:45 PM EST): #Hx of OHT #LVEF 55% (03/21/24) Prolonged hospitalization for advanced HF and OHT from 06/07/23-01/19/24, course with multiple complications. OHT performed 11/04/23. Path from EMB 01/21 showed negative for pathologic antibody mediated rejection. Repeat biopsy on 02/25 showed no evidence of rejection. For immunosuppression, titrated to tacrolimus goal 10-12. At time of recent discharge she was on tacrolimus 1 mg BID, along with mycophenolate 720 mg BID. Volume status on admission 01/30-03/08 was maintained on Bumex 4mg daily as needed, dosed per weight. At discharge Bumex 4mg PO was held given RJ and euvolemia. Did not receive Bumex at [facility]. Last bed weight at [facility] on 04/10 was 151 (though with full bedding in bed). Last echo 03/13/2024, EF 55%, RVSP 25. RHC 04/02 demonstrated RA 0, RV 28/3, PCWP 8, PA , CO/CI 5.32/3.09, PVR 195 dsc-5. PA sat 54%, FA 98%. EMB on 04/02 demonstrated no evidence of rejection. Immunosuppression: - Given history of likely tacro toxicity, tacro dose was slowly uptitrated during admission with goal tacro levels 8-10. - Tacro 2.5 mg morning/3 mg evening, 8.5 on 04/19, 01/25 on 04/22 - Daily tacro levels --> MWF - Given significant pancytopenia during this admission, MMF was held until stably no longer neutropenic and restarted on lower dose of 180 mg BID. - Continues on Prednisone 5mg daily ID Prophylaxis: - Valtrex 500mg daily (post-HD on HD days) for HSV ppx - PO Letermovir for CMV PPX - H/h Pravastatin 10mg QD while admitted given concern for pancreatitis mediated - Atovaquone 1500 mg daily - Posaconazole 300mg QD ppx held per ID given unclear indication and can worsen pancreatitis; ultimately DC'ed #Diarrhea Ongoing diarrhea since admission with periods of improvement as well as worsening. Extensive infectious workup performed on numerous dates remained negative. Stool pancreatic elastase resulted low, indicating component of exocrine pancreatic insufficiency (EPI) thus initiated on Creon on 04/02, which was switched to VIOKACE on 04/08. Multiple formulations of tube feeds trialed. - TF: [employer] Renal Support 1.8 - Diarrhea most likely multifactorial with significant contributions from EPI and prolonged antibiosis. - Guar gum trialed and ultimately DCed - Imdoium 2mg 4x/day, held upon admission given constipation - Continue Reglan 10 mg TID (goal to prevent N/V) patient feels she can do without this, dose reduced to 5mg TID and made PRN - Moving bowels, no diarrhea, no constipation #RUQ/RLQ pain #Pancreatitis #Hx of abdominal infections #Superinfection (CoNS/MDR E. Coli) of RP/abdominal wall hematomas s/p IR drain placements Recent admission at [facility] (01/28 to 03/08) for +E.Coli infected RP/abdominal wall hematomas, treated with 3 IR drains, Ceftaz-Avibactam and Flagyl (d/c'd 03/16). On this admission, patient reported worsening diffuse abdominal tenderness worse in RUQ/RLQ. Workup notable for initial 03/11 CTAP demonstrating similar to prior 03/05 CTAP pancreatitis, ileus, with stable fluid collection and no new abdominal or pelvic abnormality. Repeat abdominal imaging on 03/18 CTAP notable for c/f hemorrhagic pancreatitis vs bleeding pseudoaneurysm (though reassuringly no active extravasation). Overall, suspect worsening pancreatitis as primary etiology of abdominal pain. MRCP(03/22/24) demonstrated persistent acute interstitial edematous pancreatitis. Dilated and irregular main pancreatic duct, new since January, may be related to pancreatitis. However underlying pancreatic neoplasm must be considered. Abdominal pain resolved during last week of February 2024 following aggressive antibiotic regimen. - GI to perform EUS/ERCP in 6-8 weeks from resolution of current episode to evaluate MRCP findings. Abdominal drains removed on 04/04/24- 04/05/24 once met criteria for removal of < 10cc output over 48 hours. 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 Pt tolerated PO without issue. TPN was restarted shortly after admission and continued at the time of discharge. Continues to tolerate tube feeds at goal, though with some nausea. Was controlled with spot doses of zofran for nausea. Nausea was also controlled with 1 mg ativan injections TID, which was discontinued on 04/06. She received oral ativan 04/06 and 04/07. - Check EKG re QTc if PRNs are needed - QTc 535ms on 04/12 #Anxiety In the setting of a prolonged hospitalization -Psych consulted - PRN atarax 25mg q 6hr - Trazodone 25mg PRN QHS for sleep - Lexapro 5mg daily - SW following - Poor sleep, taking Melatonin 3mg and Trazodone 25mg, will increase Melatonin, ? If Remeron would be a good choice for both sleep and appetite? - [facility] Psych consulted and following, stop Lexapro 5mg daily, start Remeron 7.5mg QHS on 04/17 #AoCD #MATTHIAS #Jewish Last transfusion November 07, 2023 in the setting of her OHT. Hgb remains stable without transfusion. Iron studies demonstrated MATTHIAS thus given IV iron 200 mg x5 days (03/24-03/28). Repeat iron studies demonstrating fully repleted iron. Initiated on epoetin 4000U q14 days bumped to RETACRIT epoetin azalia-epbx 6000U three times weekly. Hemolysis labs (03/21/24) negative. - Monitoring H/H #B/l pleural effusions, s/p PleurX Previously had R pleural effusion s/p R thora (01/11) with pleurx placement on 01/16. Cap and drain MWF Last drained 75cc on 04/08 Patient developed chest pain 04/09 related to Pleurx drainage. Seen by thoracic team. No acute issues and assessed that pain was likely due to irritation from draining against stiff lungs. Instructed team to be careful with draining and to stop the drain at the earliest sign of pain from patient. - Patient declines Pleurx drainage on 04/12 and on 04/15, remains stable on RA - Surveillance CXR on 04/18 Quality Clinical Documentation: Resolved: #VRE bacteremia #MecA+ Staph epidermis bacteremia Unclear source of VRE bacteremia (Bcx 03/18). Patient with known pancreatitis and hx of multiple intra-abdominal infections (see below). Given multiple chronic drains/lines, also concerned about line/drain-associated infection. On, 03/22: Bcx growing staph epi and MeCA Treated with antibiotics guided by ID recommendations as below: - Linezolid 600 mg q12h (03/24 - 04/03) - Daptomycin 8 mg/kg q48hr, timed post-HD (03/19-03/24) - Ceftazidime-avibactam 1.25g q8hr (03/19-03/20, 03/21-03/25) - Metronidazole (last given 03/16, 03/18 -03/24) #History of Leukopenia #History of Neutropenia Most likely 2/2 to immunosuppressive meds iso RJ. CMV VL on 03/28 undetectable with next check scheduled for 04/12/24 GCSF given on 03/21/24 ANC<500 Assessment & Plan (04/21/2024 11:49 AM EST): #Hx of OHT #LVEF 55% (03/21/24) Prolonged hospitalization for advanced HF and OHT from 06/07/23-01/19/24, course with multiple complications. OHT performed 11/04/23. Path from EMB 01/21 showed negative for pathologic antibody mediated rejection. Repeat biopsy on 02/25 showed no evidence of rejection. For immunosuppression, titrated to tacrolimus goal 10-12. At time of recent discharge she was on tacrolimus 1 mg BID, along with mycophenolate 720 mg BID. Volume status on admission 01/30-03/08 was maintained on Bumex 4mg daily as needed, dosed per weight. At discharge Bumex 4mg PO was held given RJ and euvolemia. Did not receive Bumex at [facility]. Last bed weight at [facility] on 04/10 was 151 (though with full bedding in bed). Last echo 03/13/2024, EF 55%, RVSP 25. RHC 04/02 demonstrated RA 0, RV 28/3, PCWP 8, PA , CO/CI 5.32/3.09, PVR 195 dsc-5. PA sat 54%, FA 98%. EMB on 04/02 demonstrated no evidence of rejection. Immunosuppression: - Given history of likely tacro toxicity, tacro dose was slowly uptitrated during admission with goal tacro levels 8-10. - Tacro 2.5 mg morning/3 mg evening, 8.5 on 04/19 - Daily tacro levels --> MWF - Given significant pancytopenia during this admission, MMF was held until stably no longer neutropenic and restarted on lower dose of 180 mg BID. - Continues on Prednisone 5mg daily ID Prophylaxis: - Valtrex 500mg daily (post-HD on HD days) for HSV ppx - PO Letermovir for CMV PPX - H/h Pravastatin 10mg QD while admitted given concern for pancreatitis mediated - Atovaquone 1500 mg daily - Posaconazole 300mg QD ppx held per ID given unclear indication and can worsen pancreatitis; ultimately DC'ed #Diarrhea Ongoing diarrhea since admission with periods of improvement as well as worsening. Extensive infectious workup performed on numerous dates remained negative. Stool pancreatic elastase resulted low, indicating component of exocrine pancreatic insufficiency (EPI) thus initiated on Creon on 04/02, which was switched to VIOKACE on 04/08. Multiple formulations of tube feeds trialed. - TF: [employer] Renal Support 1.8 - Diarrhea most likely multifactorial with significant contributions from EPI and prolonged antibiosis. - Guar gum trialed and ultimately DCed - Imdoium 2mg 4x/day, held upon admission given constipation - Continue Reglan 10 mg TID (goal to prevent N/V) patient feels she can do without this, dose reduced to 5mg TID and made PRN - Moving bowels, no diarrhea, no constipation #RUQ/RLQ pain #Pancreatitis #Hx of abdominal infections #Superinfection (CoNS/MDR E. Coli) of RP/abdominal wall hematomas s/p IR drain placements Recent admission at [facility] (01/28 to 03/08) for +E.Coli infected RP/abdominal wall hematomas, treated with 3 IR drains, Ceftaz-Avibactam and Flagyl (d/c'd 03/16). On this admission, patient reported worsening diffuse abdominal tenderness worse in RUQ/RLQ. Workup notable for initial 03/11 CTAP demonstrating similar to prior 03/05 CTAP pancreatitis, ileus, with stable fluid collection and no new abdominal or pelvic abnormality. Repeat abdominal imaging on 03/18 CTAP notable for c/f hemorrhagic pancreatitis vs bleeding pseudoaneurysm (though reassuringly no active extravasation). Overall, suspect worsening pancreatitis as primary etiology of abdominal pain. MRCP(03/22/24) demonstrated persistent acute interstitial edematous pancreatitis. Dilated and irregular main pancreatic duct, new since January, may be related to pancreatitis. However underlying pancreatic neoplasm must be considered. Abdominal pain resolved during last week of February 2024 following aggressive antibiotic regimen. - GI to perform EUS/ERCP in 6-8 weeks from resolution of current episode to evaluate MRCP findings. Abdominal drains removed on 04/04/24- 04/05/24 once met criteria for removal of < 10cc output over 48 hours. 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 Pt tolerated PO without issue. TPN was restarted shortly after admission and continued at the time of discharge. Continues to tolerate tube feeds at goal, though with some nausea. Was controlled with spot doses of zofran for nausea. Nausea was also controlled with 1 mg ativan injections TID, which was discontinued on 04/06. She received oral ativan 04/06 and 04/07. - Check EKG re QTc if PRNs are needed - QTc 535ms on 04/12 #Anxiety In the setting of a prolonged hospitalization -Psych consulted - PRN atarax 25mg q 6hr - Trazodone 25mg PRN QHS for sleep - Lexapro 5mg daily - SW following - Poor sleep, taking Melatonin 3mg and Trazodone 25mg, will increase Melatonin, ? If Remeron would be a good choice for both sleep and appetite? - [facility] Psych consulted and following, stop Lexapro 5mg daily, start Remeron 7.5mg QHS on 04/17 #AoCD #MATTHIAS #Jewish Last transfusion November 07, 2023 in the setting of her OHT. Hgb remains stable without transfusion. Iron studies demonstrated MATTHIAS thus given IV iron 200 mg x5 days (03/24-1/2). Repeat iron studies demonstrating fully repleted iron. Initiated on epoetin 4000U q14 days bumped to RETACRIT epoetin azalia-epbx 6000U three times weekly. Hemolysis labs (03/21/24) negative. - Monitoring H/H #B/l pleural effusions, s/p PleurX Previously had R pleural effusion s/p R thora (01/11) with pleurx placement on 01/16. Cap and drain MWF Last drained 75cc on 04/08 Patient developed chest pain 04/09 related to Pleurx drainage. Seen by thoracic team. No acute issues and assessed that pain was likely due to irritation from draining against stiff lungs. Instructed team to be careful with draining and to stop the drain at the earliest sign of pain from patient. - Patient declines Pleurx drainage on 04/12 and on 04/15, remains stable on RA - Surveillance CXR on 04/18 Quality Clinical Documentation: Resolved: #VRE bacteremia #MecA+ Staph epidermis bacteremia Unclear source of VRE bacteremia (Bcx 03/18). Patient with known pancreatitis and hx of multiple intra-abdominal infections (see below). Given multiple chronic drains/lines, also concerned about line/drain-associated infection. On, 03/22: Bcx growing staph epi and MeCA Treated with antibiotics guided by ID recommendations as below: - Linezolid 600 mg q12h (03/24 - 04/03) - Daptomycin 8 mg/kg q48hr, timed post-HD (03/19-03/24) - Ceftazidime-avibactam 1.25g q8hr (03/19-03/20, 03/21-03/25) - Metronidazole (last given 03/16, 03/18 -03/24) #History of Leukopenia #History of Neutropenia Most likely 2/2 to immunosuppressive meds iso RJ. CMV VL on 03/28 undetectable with next check scheduled for 04/12/24 GCSF given on 03/21/24 ANC<500 Assessment & Plan (04/20/2024 12:46 PM EST): #Hx of OHT #LVEF 55% (03/21/24) Prolonged hospitalization for advanced HF and OHT from 06/07/23-01/19/24, course with multiple complications. OHT performed 11/04/23. Path from EMB 01/21 showed negative for pathologic antibody mediated rejection. Repeat biopsy on 02/25 showed no evidence of rejection. For immunosuppression, titrated to tacrolimus goal 10-12. At time of recent discharge she was on tacrolimus 1 mg BID, along with mycophenolate 720 mg BID. Volume status on admission 01/30-03/08 was maintained on Bumex 4mg daily as needed, dosed per weight. At discharge Bumex 4mg PO was held given RJ and euvolemia. Did not receive Bumex at [facility]. Last bed weight at [facility] on 04/10 was 151 (though with full bedding in bed). Last echo 03/13/2024, EF 55%, RVSP 25. RHC 04/02 demonstrated RA 0, RV 28/3, PCWP 8, PA /, CO/CI 5.32/3.09, PVR 195 dsc-5. PA sat 54%, FA 98%. EMB on 04/02 demonstrated no evidence of rejection. Immunosuppression: - Given history of likely tacro toxicity, tacro dose was slowly uptitrated during admission with goal tacro levels 8-10. - Tacro 2.5 mg morning/3 mg evening, 8.5 on 04/19 - Daily tacro levels --> MWF - Given significant pancytopenia during this admission, MMF was held until stably no longer neutropenic and restarted on lower dose of 180 mg BID. - Continues on Prednisone 5mg daily ID Prophylaxis: - Valtrex 500mg daily (post-HD on HD days) for HSV ppx - PO Letermovir for CMV PPX - H/h Pravastatin 10mg QD while admitted given concern for pancreatitis mediated - Atovaquone 1500 mg daily - Posaconazole 300mg QD ppx held per ID given unclear indication and can worsen pancreatitis; ultimately DC'ed #Diarrhea Ongoing diarrhea since admission with periods of improvement as well as worsening. Extensive infectious workup performed on numerous dates remained negative. Stool pancreatic elastase resulted low, indicating component of exocrine pancreatic insufficiency (EPI) thus initiated on Creon on 04/02, which was switched to VIOKACE on 04/08. Multiple formulations of tube feeds trialed. - TF: [employer] Renal Support 1.8 - Diarrhea most likely multifactorial with significant contributions from EPI and prolonged antibiosis. - Guar gum trialed and ultimately DCed - Imdoium 2mg 4x/day, held upon admission given constipation - Continue Reglan 10 mg TID (goal to prevent N/V) patient feels she can do without this, dose reduced to 5mg TID and made PRN - Moving bowels, no diarrhea, no constipation #RUQ/RLQ pain #Pancreatitis #Hx of abdominal infections #Superinfection (CoNS/MDR E. Coli) of RP/abdominal wall hematomas s/p IR drain placements Recent admission at [facility] (01/28 to 03/08) for +E.Coli infected RP/abdominal wall hematomas, treated with 3 IR drains, Ceftaz-Avibactam and Flagyl (d/c'd 03/16). On this admission, patient reported worsening diffuse abdominal tenderness worse in RUQ/RLQ. Workup notable for initial 03/11 CTAP demonstrating similar to prior 03/05 CTAP pancreatitis, ileus, with stable fluid collection and no new abdominal or pelvic abnormality. Repeat abdominal imaging on 03/18 CTAP notable for c/f hemorrhagic pancreatitis vs bleeding pseudoaneurysm (though reassuringly no active extravasation). Overall, suspect worsening pancreatitis as primary etiology of abdominal pain. MRCP(03/22/24) demonstrated persistent acute interstitial edematous pancreatitis. Dilated and irregular main pancreatic duct, new since January, may be related to pancreatitis. However underlying pancreatic neoplasm must be considered. Abdominal pain resolved during last week of February 2024 following aggressive antibiotic regimen. - GI to perform EUS/ERCP in 6-8 weeks from resolution of current episode to evaluate MRCP findings. Abdominal drains removed on 04/04/24- 04/05/24 once met criteria for removal of < 10cc output over 48 hours. 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 Pt tolerated PO without issue. TPN was restarted shortly after admission and continued at the time of discharge. Continues to tolerate tube feeds at goal, though with some nausea. Was controlled with spot doses of zofran for nausea. Nausea was also controlled with 1 mg ativan injections TID, which was discontinued on 04/06. She received oral ativan 04/06 and 04/07. - Check EKG re QTc if PRNs are needed - QTc 535ms on 04/12 #Anxiety In the setting of a prolonged hospitalization -Psych consulted - PRN atarax 25mg q 6hr - Trazodone 25mg PRN QHS for sleep - Lexapro 5mg daily - SW following - Poor sleep, taking Melatonin 3mg and Trazodone 25mg, will increase Melatonin, ? If Remeron would be a good choice for both sleep and appetite? - [facility] Psych consulted and following, stop Lexapro 5mg daily, start Remeron 7.5mg QHS on 04/17 #AoCD #MATTHIAS #Jewish Last transfusion November 07, 2023 in the setting of her OHT. Hgb remains stable without transfusion. Iron studies demonstrated MATTHIAS thus given IV iron 200 mg x5 days (03/24-03/28). Repeat iron studies demonstrating fully repleted iron. Initiated on epoetin 4000U q14 days bumped to RETACRIT epoetin azalia-epbx 6000U three times weekly. Hemolysis labs (03/21/24) negative. - Monitoring H/H #B/l pleural effusions, s/p PleurX Previously had R pleural effusion s/p R thora (01/11) with pleurx placement on 01/16. Cap and drain MWF Last drained 75cc on 04/08 Patient developed chest pain 04/09 related to Pleurx drainage. Seen by thoracic team. No acute issues and assessed that pain was likely due to irritation from draining against stiff lungs. Instructed team to be careful with draining and to stop the drain at the earliest sign of pain from patient. - Patient declines Pleurx drainage on 04/12 and on 04/15, remains stable on RA - Surveillance CXR on 04/18 Quality Clinical Documentation: Resolved: #VRE bacteremia #MecA+ Staph epidermis bacteremia Unclear source of VRE bacteremia (Bcx 03/18). Patient with known pancreatitis and hx of multiple intra-abdominal infections (see below). Given multiple chronic drains/lines, also concerned about line/drain-associated infection. On, 03/22: Bcx growing staph epi and MeCA Treated with antibiotics guided by ID recommendations as below: - Linezolid 600 mg q12h (03/24 - 04/03) - Daptomycin 8 mg/kg q48hr, timed post-HD (03/19-03/24) - Ceftazidime-avibactam 1.25g q8hr (03/19-03/20, 03/21-03/25) - Metronidazole (last given 03/16, 03/18 -03/24) #History of Leukopenia #History of Neutropenia Most likely 2/2 to immunosuppressive meds iso RJ. CMV VL on 03/28 undetectable with next check scheduled for 04/12/24 GCSF given on 03/21/24 ANC<500 Assessment & Plan (04/19/2024 7:05 PM EST): #Hx of OHT #LVEF 55% (03/21/24) Prolonged hospitalization for advanced HF and OHT from 06/07/23-01/19/24, course with multiple complications. OHT performed 11/04/23. Path from EMB 01/21 showed negative for pathologic antibody mediated rejection. Repeat biopsy on 02/25 showed no evidence of rejection. For immunosuppression, titrated to tacrolimus goal 10-12. At time of recent discharge she was on tacrolimus 1 mg BID, along with mycophenolate 720 mg BID. Volume status on admission 01/30-03/08 was maintained on Bumex 4mg daily as needed, dosed per weight. At discharge Bumex 4mg PO was held given RJ and euvolemia. Did not receive Bumex at [facility]. Last bed weight at [facility] on 04/10 was 151 (though with full bedding in bed). Last echo 03/13/2024, EF 55%, RVSP 25. RHC 04/02 demonstrated RA 0, RV 28/3, PCWP 8, PA , CO/CI 5.32/3.09, PVR 195 dsc-5. PA sat 54%, FA 98%. EMB on 04/02 demonstrated no evidence of rejection. Immunosuppression: - Given history of likely tacro toxicity, tacro dose was slowly uptitrated during admission with goal tacro levels 8-10. - Tacro 2.5 mg morning/3 mg evening, 8.5 on 04/19 - Daily tacro levels --> MWF - Given significant pancytopenia during this admission, MMF was held until stably no longer neutropenic and restarted on lower dose of 180 mg BID. - Continues on Prednisone 5mg daily ID Prophylaxis: - Valtrex 500mg daily (post-HD on HD days) for HSV ppx - PO Letermovir for CMV PPX - H/h Pravastatin 10mg QD while admitted given concern for pancreatitis mediated - Atovaquone 1500 mg daily - Posaconazole 300mg QD ppx held per ID given unclear indication and can worsen pancreatitis; ultimately DC'ed #Diarrhea Ongoing diarrhea since admission with periods of improvement as well as worsening. Extensive infectious workup performed on numerous dates remained negative. Stool pancreatic elastase resulted low, indicating component of exocrine pancreatic insufficiency (EPI) thus initiated on Creon on 04/02, which was switched to VIOKACE on 04/08. Multiple formulations of tube feeds trialed. - TF: [employer] Renal Support 1.8 - Diarrhea most likely multifactorial with significant contributions from EPI and prolonged antibiosis. - Guar gum trialed and ultimately DCed - Imdoium 2mg 4x/day, held upon admission given constipation - Continue Reglan 10 mg TID (goal to prevent N/V) patient feels she can do without this, dose reduced to 5mg TID and made PRN - Moving bowels, no diarrhea, no constipation #RUQ/RLQ pain #Pancreatitis #Hx of abdominal infections #Superinfection (CoNS/MDR E. Coli) of RP/abdominal wall hematomas s/p IR drain placements Recent admission at [facility] (01/28 to 03/08) for +E.Coli infected RP/abdominal wall hematomas, treated with 3 IR drains, Ceftaz-Avibactam and Flagyl (d/c'd 03/16). On this admission, patient reported worsening diffuse abdominal tenderness worse in RUQ/RLQ. Workup notable for initial 03/11 CTAP demonstrating similar to prior 03/05 CTAP pancreatitis, ileus, with stable fluid collection and no new abdominal or pelvic abnormality. Repeat abdominal imaging on 03/18 CTAP notable for c/f hemorrhagic pancreatitis vs bleeding pseudoaneurysm (though reassuringly no active extravasation). Overall, suspect worsening pancreatitis as primary etiology of abdominal pain. MRCP(03/22/24) demonstrated persistent acute interstitial edematous pancreatitis. Dilated and irregular main pancreatic duct, new since January, may be related to pancreatitis. However underlying pancreatic neoplasm must be considered. Abdominal pain resolved during last week of February 2024 following aggressive antibiotic regimen. - GI to perform EUS/ERCP in 6-8 weeks from resolution of current episode to evaluate MRCP findings. Abdominal drains removed on 04/04/24- 04/05/24 once met criteria for removal of < 10cc output over 48 hours. 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 Pt tolerated PO without issue. TPN was restarted shortly after admission and continued at the time of discharge. Continues to tolerate tube feeds at goal, though with some nausea. Was controlled with spot doses of zofran for nausea. Nausea was also controlled with 1 mg ativan injections TID, which was discontinued on 04/06. She received oral ativan 04/06 and 04/07. - Check EKG re QTc if PRNs are needed - QTc 535ms on 04/12 #Anxiety In the setting of a prolonged hospitalization -Psych consulted - PRN atarax 25mg q 6hr - Trazodone 25mg PRN QHS for sleep - Lexapro 5mg daily - SW following - Poor sleep, taking Melatonin 3mg and Trazodone 25mg, will increase Melatonin, ? If Remeron would be a good choice for both sleep and appetite? - [facility] Psych consulted and following, stop Lexapro 5mg daily, start Remeron 7.5mg QHS on 04/17 #AoCD #MATTHIAS #Jewish Last transfusion November 07, 2023 in the setting of her OHT. Hgb remains stable without transfusion. Iron studies demonstrated MATTHIAS thus given IV iron 200 mg x5 days (03/24-03/28). Repeat iron studies demonstrating fully repleted iron. Initiated on epoetin 4000U q14 days bumped to RETACRIT epoetin azalia-epbx 6000U three times weekly. Hemolysis labs (03/21/24) negative. - Monitoring H/H #B/l pleural effusions, s/p PleurX Previously had R pleural effusion s/p R thora (01/11) with pleurx placement on 01/16. Cap and drain MWF Last drained 75cc on 04/08 Patient developed chest pain 1/14 related to Pleurx drainage. Seen by thoracic team. No acute issues and assessed that pain was likely due to irritation from draining against stiff lungs. Instructed team to be careful with draining and to stop the drain at the earliest sign of pain from patient. - Patient declines Pleurx drainage on 04/12 and on 04/15, remains stable on RA - Surveillance CXR on 04/18 Quality Clinical Documentation: Resolved: #VRE bacteremia #MecA+ Staph epidermis bacteremia Unclear source of VRE bacteremia (Bcx 03/18). Patient with known pancreatitis and hx of multiple intra-abdominal infections (see below). Given multiple chronic drains/lines, also concerned about line/drain-associated infection. On, 03/22: Bcx growing staph epi and MeCA Treated with antibiotics guided by ID recommendations as below: - Linezolid 600 mg q12h (03/24 - 04/03) - Daptomycin 8 mg/kg q48hr, timed post-HD (03/19-03/24) - Ceftazidime-avibactam 1.25g q8hr (03/19-03/20, 03/21-03/25) - Metronidazole (last given 03/16, 03/18 -03/24) #History of Leukopenia #History of Neutropenia Most likely 2/2 to immunosuppressive meds iso RJ. CMV VL on 03/28 undetectable with next check scheduled for 04/12/24 GCSF given on 03/21/24 ANC<500 Assessment & Plan (04/18/2024 3:31 PM EST): #Hx of OHT #LVEF 55% (03/21/24) Prolonged hospitalization for advanced HF and OHT from 06/07/23-01/19/24, course with multiple complications. OHT performed 11/04/23. Path from EMB 01/21 showed negative for pathologic antibody mediated rejection. Repeat biopsy on 02/25 showed no evidence of rejection. For immunosuppression, titrated to tacrolimus goal 01-05. At time of recent discharge she was on tacrolimus 1 mg BID, along with mycophenolate 720 mg BID. Volume status on admission 01/30-03/08 was maintained on Bumex 4mg daily as needed, dosed per weight. At discharge Bumex 4mg PO was held given RJ and euvolemia. Did not receive Bumex at [facility]. Last bed weight at [facility] on 04/10 was 151 (though with full bedding in bed). Last echo 03/13/2024, EF 55%, RVSP 25. RHC 04/02 demonstrated RA 0, RV 28/3, PCWP 8, PA /, CO/CI 5.32/3.09, PVR 195 dsc-5. PA sat 54%, FA 98%. EMB on 04/02 demonstrated no evidence of rejection. Immunosuppression: - Given history of likely tacro toxicity, tacro dose was slowly uptitrated during admission with goal tacro levels 8-10. - Tacro 2.5 mg morning/3 mg evening, 8.3 on 04/18 - Daily tacro levels --> MWF - Given significant pancytopenia during this admission, MMF was held until stably no longer neutropenic and restarted on lower dose of 180 mg BID. - Continues on Prednisone 5mg daily ID Prophylaxis: - Valtrex 500mg daily (post-HD on HD days) for HSV ppx - PO Letermovir for CMV PPX - H/h Pravastatin 10mg QD while admitted given concern for pancreatitis mediated - Atovaquone 1500 mg daily - Posaconazole 300mg QD ppx held per ID given unclear indication and can worsen pancreatitis; ultimately DC'ed #Diarrhea Ongoing diarrhea since admission with periods of improvement as well as worsening. Extensive infectious workup performed on numerous dates remained negative. Stool pancreatic elastase resulted low, indicating component of exocrine pancreatic insufficiency (EPI) thus initiated on Creon on 04/02, which was switched to VIOKACE on 04/08. Multiple formulations of tube feeds trialed. - TF: [employer] Renal Support 1.8 - Diarrhea most likely multifactorial with significant contributions from EPI and prolonged antibiosis. - Guar gum trialed and ultimately DCed - Imdoium 2mg 4x/day, held upon admission given constipation - Continue Reglan 10 mg TID (goal to prevent N/V) patient feels she can do without this, dose reduced to 5mg TID and made PRN - Moving bowels, no diarrhea, no constipation #RUQ/RLQ pain #Pancreatitis #Hx of abdominal infections #Superinfection (CoNS/MDR E. Coli) of RP/abdominal wall hematomas s/p IR drain placements Recent admission at [facility] (01/28 to 03/08) for +E.Coli infected RP/abdominal wall hematomas, treated with 3 IR drains, Ceftaz-Avibactam and Flagyl (d/c'd 03/16). On this admission, patient reported worsening diffuse abdominal tenderness worse in RUQ/RLQ. Workup notable for initial 03/11 CTAP demonstrating similar to prior 03/05 CTAP pancreatitis, ileus, with stable fluid collection and no new abdominal or pelvic abnormality. Repeat abdominal imaging on 03/18 CTAP notable for c/f hemorrhagic pancreatitis vs bleeding pseudoaneurysm (though reassuringly no active extravasation). Overall, suspect worsening pancreatitis as primary etiology of abdominal pain. MRCP(03/22/24) demonstrated persistent acute interstitial edematous pancreatitis. Dilated and irregular main pancreatic duct, new since January, may be related to pancreatitis. However underlying pancreatic neoplasm must be considered. Abdominal pain resolved during last week of February 2024 following aggressive antibiotic regimen. - GI to perform EUS/ERCP in 6-8 weeks from resolution of current episode to evaluate MRCP findings. Abdominal drains removed on 04/04/24- 04/05/24 once met criteria for removal of < 10cc output over 48 hours. 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 Pt tolerated PO without issue. TPN was restarted shortly after admission and continued at the time of discharge. Continues to tolerate tube feeds at goal, though with some nausea. Was controlled with spot doses of zofran for nausea. Nausea was also controlled with 1 mg ativan injections TID, which was discontinued on 04/06. She received oral ativan 04/06 and 04/07. - Check EKG re QTc if PRNs are needed - QTc 535ms on 04/12 #Anxiety In the setting of a prolonged hospitalization -Psych consulted - PRN atarax 25mg q 6hr - Trazodone 25mg PRN QHS for sleep - Lexapro 5mg daily - SW following - Poor sleep, taking Melatonin 3mg and Trazodone 25mg, will increase Melatonin, ? If Remeron would be a good choice for both sleep and appetite? - [facility] Psych consulted and following, stop Lexapro 5mg daily, start Remeron 7.5mg QHS on 04/17 #AoCD #MATTHIAS #Jewish Last transfusion November 07, 2023 in the setting of her OHT. Hgb remains stable without transfusion. Iron studies demonstrated MATTHIAS thus given IV iron 200 mg x5 days (03/24-03/28). Repeat iron studies demonstrating fully repleted iron. Initiated on epoetin 4000U q14 days bumped to RETACRIT epoetin azalia-epbx 6000U three times weekly. Hemolysis labs (03/21/24) negative. - Monitoring H/H #B/l pleural effusions, s/p PleurX Previously had R pleural effusion s/p R thora (01/11) with pleurx placement on 01/16. Cap and drain MWF Last drained 75cc on 04/08 Patient developed chest pain 04/09 related to Pleurx drainage. Seen by thoracic team. No acute issues and assessed that pain was likely due to irritation from draining against stiff lungs. Instructed team to be careful with draining and to stop the drain at the earliest sign of pain from patient. - Patient declines Pleurx drainage on 04/12 and on 04/15, remains stable on RA - Surveillance CXR on 04/18 Quality Clinical Documentation: Resolved: #VRE bacteremia #MecA+ Staph epidermis bacteremia Unclear source of VRE bacteremia (Bcx 03/18). Patient with known pancreatitis and hx of multiple intra-abdominal infections (see below). Given multiple chronic drains/lines, also concerned about line/drain-associated infection. On, 03/22: Bcx growing staph epi and MeCA Treated with antibiotics guided by ID recommendations as below: - Linezolid 600 mg q12h (03/24 - 04/03) - Daptomycin 8 mg/kg q48hr, timed post-HD (03/19-03/24) - Ceftazidime-avibactam 1.25g q8hr (03/19-03/20, 03/21-03/25) - Metronidazole (last given 03/16, 03/18 -03/24) #History of Leukopenia #History of Neutropenia Most likely 2/2 to immunosuppressive meds iso RJ. CMV VL on 1/2 undetectable with next check scheduled for 04/12/24 GCSF given on 03/21/24 ANC<500 Assessment & Plan (04/17/2024 7:00 PM EST): #Hx of OHT #LVEF 55% (03/21/24) Prolonged hospitalization for advanced HF and OHT from 06/07/23-01/19/24, course with multiple complications. OHT performed 11/04/23. Path from EMB 01/21 showed negative for pathologic antibody mediated rejection. Repeat biopsy on 02/25 showed no evidence of rejection. For immunosuppression, titrated to tacrolimus goal 10-12. At time of recent discharge she was on tacrolimus 1 mg BID, along with mycophenolate 720 mg BID. Volume status on admission 01/30-03/08 was maintained on Bumex 4mg daily as needed, dosed per weight. At discharge Bumex 4mg PO was held given RJ and euvolemia. Did not receive Bumex at [facility]. Last bed weight at [facility] on 04/10 was 151 (though with full bedding in bed). Last echo 03/13/2024, EF 55%, RVSP 25. RHC 04/02 demonstrated RA 0, RV 28/3, PCWP 8, PA /, CO/CI 5.32/3.09, PVR 195 dsc-5. PA sat 54%, FA 98%. EMB on 04/02 demonstrated no evidence of rejection. Immunosuppression: - Given history of likely tacro toxicity, tacro dose was slowly uptitrated during admission with goal tacro levels 8-10. - Tacro 2.5 mg morning/3 mg evening, 8.8 on 04/12, 7.6 on 04/13, 7.9 on 04/14, 04/15 6.9, recheck on 04/17 --> 04/18 - Daily tacro levels --> MWF - Given significant pancytopenia during this admission, MMF was held until stably no longer neutropenic and restarted on lower dose of 180 mg BID. - Continues on Prednisone 5mg daily ID Prophylaxis: - Valtrex 500mg daily (post-HD on HD days) for HSV ppx - PO Letermovir for CMV PPX - H/h Pravastatin 10mg QD while admitted given concern for pancreatitis mediated - Atovaquone 1500 mg daily - Posaconazole 300mg QD ppx held per ID given unclear indication and can worsen pancreatitis; ultimately DC'ed #Diarrhea Ongoing diarrhea since admission with periods of improvement as well as worsening. Extensive infectious workup performed on numerous dates remained negative. Stool pancreatic elastase resulted low, indicating component of exocrine pancreatic insufficiency (EPI) thus initiated on Creon on 04/02, which was switched to VIOKACE on 04/08. Multiple formulations of tube feeds trialed. - TF: [employer] Renal Support 1.8 - Diarrhea most likely multifactorial with significant contributions from EPI and prolonged antibiosis. - Guar gum trialed and ultimately DCed - Imdoium 2mg 4x/day, held upon admission given constipation - Continue Reglan 10 mg TID (goal to prevent N/V) patient feels she can do without this, dose reduced to 5mg TID and made PRN - Moving bowels, no diarrhea, no constipation #RUQ/RLQ pain #Pancreatitis #Hx of abdominal infections #Superinfection (CoNS/MDR E. Coli) of RP/abdominal wall hematomas s/p IR drain placements Recent admission at [facility] (01/28 to 03/08) for +E.Coli infected RP/abdominal wall hematomas, treated with 3 IR drains, Ceftaz-Avibactam and Flagyl (d/c'd 03/16). On this admission, patient reported worsening diffuse abdominal tenderness worse in RUQ/RLQ. Workup notable for initial 03/11 CTAP demonstrating similar to prior 03/05 CTAP pancreatitis, ileus, with stable fluid collection and no new abdominal or pelvic abnormality. Repeat abdominal imaging on 03/18 CTAP notable for c/f hemorrhagic pancreatitis vs bleeding pseudoaneurysm (though reassuringly no active extravasation). Overall, suspect worsening pancreatitis as primary etiology of abdominal pain. MRCP(03/22/24) demonstrated persistent acute interstitial edematous pancreatitis. Dilated and irregular main pancreatic duct, new since January, may be related to pancreatitis. However underlying pancreatic neoplasm must be considered. Abdominal pain resolved during last week of February 2024 following aggressive antibiotic regimen. - GI to perform EUS/ERCP in 6-8 weeks from resolution of current episode to evaluate MRCP findings. Abdominal drains removed on 04/04/24- 04/05/24 once met criteria for removal of < 10cc output over 48 hours. 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 Pt tolerated PO without issue. TPN was restarted shortly after admission and continued at the time of discharge. Continues to tolerate tube feeds at goal, though with some nausea. Was controlled with spot doses of zofran for nausea. Nausea was also controlled with 1 mg ativan injections TID, which was discontinued on 04/06. She received oral ativan 04/06 and 04/07. - Check EKG re QTc if PRNs are needed - QTc 535ms on 04/12 #Anxiety In the setting of a prolonged hospitalization -Psych consulted - PRN atarax 25mg q 6hr - Trazodone 25mg PRN QHS for sleep - Lexapro 5mg daily - SW following - Poor sleep, taking Melatonin 3mg and Trazodone 25mg, will increase Melatonin, ? If Remeron would be a good choice for both sleep and appetite? - [facility] Psych consulted and following, stop Lexapro 5mg daily, start Remeron 7.5mg QHS on 04/17 #AoCD #MATTHIAS #Jewish Last transfusion November 07, 2023 in the setting of her OHT. Hgb remains stable without transfusion. Iron studies demonstrated MATTHIAS thus given IV iron 200 mg x5 days (03/24-03/28). Repeat iron studies demonstrating fully repleted iron. Initiated on epoetin 4000U q14 days bumped to RETACRIT epoetin azalia-epbx 6000U three times weekly. Hemolysis labs (03/21/24) negative. - Monitoring H/H #B/l pleural effusions, s/p PleurX Previously had R pleural effusion s/p R thora (01/11) with pleurx placement on 01/16. Cap and drain MWF Last drained 75cc on 04/08 Patient developed chest pain 04/09 related to Pleurx drainage. Seen by thoracic team. No acute issues and assessed that pain was likely due to irritation from draining against stiff lungs. Instructed team to be careful with draining and to stop the drain at the earliest sign of pain from patient. - Patient declines Pleurx drainage on 04/12 and on 04/15, remains stable on RA - Surveillance CXR on 04/17 Quality Clinical Documentation: Resolved: #VRE bacteremia #MecA+ Staph epidermis bacteremia Unclear source of VRE bacteremia (Bcx 03/18). Patient with known pancreatitis and hx of multiple intra-abdominal infections (see below). Given multiple chronic drains/lines, also concerned about line/drain-associated infection. On, 03/22: Bcx growing staph epi and MeCA Treated with antibiotics guided by ID recommendations as below: - Linezolid 600 mg q12h (03/24 - 04/03) - Daptomycin 8 mg/kg q48hr, timed post-HD (03/19-03/24) - Ceftazidime-avibactam 1.25g q8hr (03/19-03/20, 03/21-03/25) - Metronidazole (last given 03/16, 03/18 -03/24) #History of Leukopenia #History of Neutropenia Most likely 2/2 to immunosuppressive meds iso RJ. CMV VL on 03/28 undetectable with next check scheduled for 04/12/24 GCSF given on 03/21/24 ANC<500 Assessment & Plan (04/16/2024 5:29 PM EST): #Hx of OHT #LVEF 55% (03/21/24) Prolonged hospitalization for advanced HF and OHT from 06/07/23-01/19/24, course with multiple complications. OHT performed 11/04/23. Path from EMB 01/21 showed negative for pathologic antibody mediated rejection. Repeat biopsy on 02/25 showed no evidence of rejection. For immunosuppression, titrated to tacrolimus goal 10-12. At time of recent discharge she was on tacrolimus 1 mg BID, along with mycophenolate 720 mg BID. Volume status on admission 01/30-03/08 was maintained on Bumex 4mg daily as needed, dosed per weight. At discharge Bumex 4mg PO was held given RJ and euvolemia. Did not receive Bumex at [facility]. Last bed weight at [facility] on 04/10 was 151 (though with full bedding in bed). Last echo 03/13/2024, EF 55%, RVSP 25. RHC 04/02 demonstrated RA 0, RV 28/3, PCWP 8, PA 28/14/21, CO/CI 5.32/3.09, PVR 195 dsc-5. PA sat 54%, FA 98%. EMB on 04/02 demonstrated no evidence of rejection. Immunosuppression: - Given history of likely tacro toxicity, tacro dose was slowly uptitrated during admission with goal tacro levels 8-10. - Tacro 2.5 mg morning/3 mg evening, 8.8 on 04/12, 7.6 on 04/13, 7.9 on 04/14, 04/15 6.9, recheck on 04/17 - Daily tacro levels --> MWF - Given significant pancytopenia during this admission, MMF was held until stably no longer neutropenic and restarted on lower dose of 180 mg BID. - Continues on Prednisone 5mg daily ID Prophylaxis: - Valtrex 500mg daily (post-HD on HD days) for HSV ppx - PO Letermovir for CMV PPX - H/h Pravastatin 10mg QD while admitted given concern for pancreatitis mediated - Atovaquone 1500 mg daily - Posaconazole 300mg QD ppx held per ID given unclear indication and can worsen pancreatitis; ultimately DC'ed #Diarrhea Ongoing diarrhea since admission with periods of improvement as well as worsening. Extensive infectious workup performed on numerous dates remained negative. Stool pancreatic elastase resulted low, indicating component of exocrine pancreatic insufficiency (EPI) thus initiated on Creon on 04/02, which was switched to VIOKACE on 04/08. Multiple formulations of tube feeds trialed. - TF: [employer] Renal Support 1.8 - Diarrhea most likely multifactorial with significant contributions from EPI and prolonged antibiosis. - Guar gum trialed and ultimately DCed - Imdoium 2mg 4x/day, held upon admission given constipation - Continue Reglan 10 mg TID (goal to prevent N/V) - Moving bowels, no diarrhea, no constipation #RUQ/RLQ pain #Pancreatitis #Hx of abdominal infections #Superinfection (CoNS/MDR E. Coli) of RP/abdominal wall hematomas s/p IR drain placements Recent admission at [facility] (01/28 to 03/08) for +E.Coli infected RP/abdominal wall hematomas, treated with 3 IR drains, Ceftaz-Avibactam and Flagyl (d/c'd 03/16). On this admission, patient reported worsening diffuse abdominal tenderness worse in RUQ/RLQ. Workup notable for initial 03/11 CTAP demonstrating similar to prior 03/05 CTAP pancreatitis, ileus, with stable fluid collection and no new abdominal or pelvic abnormality. Repeat abdominal imaging on 03/18 CTAP notable for c/f hemorrhagic pancreatitis vs bleeding pseudoaneurysm (though reassuringly no active extravasation). Overall, suspect worsening pancreatitis as primary etiology of abdominal pain. MRCP(03/22/24) demonstrated persistent acute interstitial edematous pancreatitis. Dilated and irregular main pancreatic duct, new since January, may be related to pancreatitis. However underlying pancreatic neoplasm must be considered. Abdominal pain resolved during last week of February 2024 following aggressive antibiotic regimen. - GI to perform EUS/ERCP in 6-8 weeks from resolution of current episode to evaluate MRCP findings. Abdominal drains removed on 04/04/24- 04/05/24 once met criteria for removal of < 10cc output over 48 hours. 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 Pt tolerated PO without issue. TPN was restarted shortly after admission and continued at the time of discharge. Continues to tolerate tube feeds at goal, though with some nausea. Was controlled with spot doses of zofran for nausea. Nausea was also controlled with 1 mg ativan injections TID, which was discontinued on 04/06. She received oral ativan 04/06 and 04/07. - Check EKG re QTc if PRNs are needed - QTc 535ms on 04/12 #Anxiety In the setting of a prolonged hospitalization -Psych consulted - PRN atarax 25mg q 6hr - Trazodone 25mg PRN QHS for sleep - Lexapro 5mg daily - SW following - Poor sleep, taking Melatonin 3mg and Trazodone 25mg, will increase Melatonin, ? If Remeron would be a good choice for both sleep and appetite? - [facility] Psych consulted and following, will f/u recommendations #AoCD #MATTHIAS #Jewish Last transfusion November 07, 2023 in the setting of her OHT. Hgb remains stable without transfusion. Iron studies demonstrated MATTHIAS thus given IV iron 200 mg x5 days (03/24-03/28). Repeat iron studies demonstrating fully repleted iron. Initiated on epoetin 4000U q14 days bumped to RETACRIT epoetin azalia-epbx 6000U three times weekly. Hemolysis labs (03/21/24) negative. - Monitoring H/H #B/l pleural effusions, s/p PleurX Previously had R pleural effusion s/p R thora (01/11) with pleurx placement on 01/16. Cap and drain MWF Last drained 75cc on 04/08 Patient developed chest pain 04/09 related to Pleurx drainage. Seen by thoracic team. No acute issues and assessed that pain was likely due to irritation from draining against stiff lungs. Instructed team to be careful with draining and to stop the drain at the earliest sign of pain from patient. - Patient declines Pleurx drainage on 04/12 and on 04/15, remains stable on RA Quality Clinical Documentation: Resolved: #VRE bacteremia #MecA+ Staph epidermis bacteremia Unclear source of VRE bacteremia (Bcx 03/18). Patient with known pancreatitis and hx of multiple intra-abdominal infections (see below). Given multiple chronic drains/lines, also concerned about line/drain-associated infection. On, 03/22: Bcx growing staph epi and MeCA Treated with antibiotics guided by ID recommendations as below: - Linezolid 600 mg q12h (03/24 - 04/03) - Daptomycin 8 mg/kg q48hr, timed post-HD (03/19-03/24) - Ceftazidime-avibactam 1.25g q8hr (03/19-03/20, 03/21-03/25) - Metronidazole (last given 03/16, 03/18 -03/24) #History of Leukopenia #History of Neutropenia Most likely 2/2 to immunosuppressive meds iso RJ. CMV VL on 03/28 undetectable with next check scheduled for 04/12/24 GCSF given on 03/21/24 ANC<500 Assessment & Plan (04/15/2024 1:17 PM EST): #Hx of OHT #LVEF 55% (03/21/24) Prolonged hospitalization for advanced HF and OHT from 06/07/23-01/19/24, course with multiple complications. OHT performed 11/04/23. Path from EMB 01/21 showed negative for pathologic antibody mediated rejection. Repeat biopsy on 02/25 showed no evidence of rejection. For immunosuppression, titrated to tacrolimus goal 10-12. At time of recent discharge she was on tacrolimus 1 mg BID, along with mycophenolate 720 mg BID. Volume status on admission 01/30-03/08 was maintained on Bumex 4mg daily as needed, dosed per weight. At discharge Bumex 4mg PO was held given RJ and euvolemia. Did not receive Bumex at [facility]. Last bed weight at [facility] on 04/10 was 151 (though with full bedding in bed). Last echo 03/13/2024, EF 55%, RVSP 25. RHC 04/02 demonstrated RA 0, RV 28/3, PCWP 8, PA , CO/CI 5.32/3.09, PVR 195 dsc-5. PA sat 54%, FA 98%. EMB on 04/02 demonstrated no evidence of rejection. Immunosuppression: - Given history of likely tacro toxicity, tacro dose was slowly uptitrated during admission with goal tacro levels 8-10. - Tacro 2.5 mg morning/3 mg evening, 8.8 on 04/12, 7.6 on 04/13, 7.9 on 04/14, 04/15 pending - Daily tacro levels --> MWF - Given significant pancytopenia during this admission, MMF was held until stably no longer neutropenic and restarted on lower dose of 180 mg BID. - Continues on Prednisone 5mg daily ID Prophylaxis: - Acyclovir for HSV ppx (held while neutropenic), current IV, would like to change to PO, emailed [facility] team for clarification - PO Letermovir for CMV PPX - H/h Pravastatin 10mg QD while admitted given concern for pancreatitis mediated - Atovaquone 1500 mg daily - Posaconazole 300mg QD ppx held per ID given unclear indication and can worsen pancreatitis; ultimately DC'ed #Diarrhea Ongoing diarrhea since admission with periods of improvement as well as worsening. Extensive infectious workup performed on numerous dates remained negative. Stool pancreatic elastase resulted low, indicating component of exocrine pancreatic insufficiency (EPI) thus initiated on Creon on 04/02, which was switched to VIOKACE on 04/08. Multiple formulations of tube feeds trialed. - TF: [employer] Renal Support 1.8 - Diarrhea most likely multifactorial with significant contributions from EPI and prolonged antibiosis. - Guar gum trialed and ultimately DCed - Imdoium 2mg 4x/day, held upon admission given constipation - Continue Reglan 10 mg TID (goal to prevent N/V) - Moving bowels, no diarrhea, no constipation #RUQ/RLQ pain #Pancreatitis #Hx of abdominal infections #Superinfection (CoNS/MDR E. Coli) of RP/abdominal wall hematomas s/p IR drain placements Recent admission at [facility] (01/28 to 03/08) for +E.Coli infected RP/abdominal wall hematomas, treated with 3 IR drains, Ceftaz-Avibactam and Flagyl (d/c'd 03/16). On this admission, patient reported worsening diffuse abdominal tenderness worse in RUQ/RLQ. Workup notable for initial 03/11 CTAP demonstrating similar to prior 03/05 CTAP pancreatitis, ileus, with stable fluid collection and no new abdominal or pelvic abnormality. Repeat abdominal imaging on 03/18 CTAP notable for c/f hemorrhagic pancreatitis vs bleeding pseudoaneurysm (though reassuringly no active extravasation). Overall, suspect worsening pancreatitis as primary etiology of abdominal pain. MRCP(03/22/24) demonstrated persistent acute interstitial edematous pancreatitis. Dilated and irregular main pancreatic duct, new since January, may be related to pancreatitis. However underlying pancreatic neoplasm must be considered. Abdominal pain resolved during last week of February 2024 following aggressive antibiotic regimen. - GI to perform EUS/ERCP in 6-8 weeks from resolution of current episode to evaluate MRCP findings. Abdominal drains removed on 04/04/24- 04/05/24 once met criteria for removal of < 10cc output over 48 hours. 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 Pt tolerated PO without issue. TPN was restarted shortly after admission and continued at the time of discharge. Continues to tolerate tube feeds at goal, though with some nausea. Was controlled with spot doses of zofran for nausea. Nausea was also controlled with 1 mg ativan injections TID, which was discontinued on 04/06. She received oral ativan 04/06 and 04/07. - Check EKG re QTc if PRNs are needed - QTc 535ms on 04/12 #Anxiety In the setting of a prolonged hospitalization -Psych consulted - PRN atarax 25mg q 6hr - Trazodone 25mg PRN QHS for sleep - Lexapro 5mg daily - SW following - Poor sleep, taking Melatonin 3mg and Trazodone 25mg, will increase Melatonin, ? If Remeron would be a good choice for both sleep and appetite? - [facility] Psych consulted and following #AoCD #MATTHIAS #Jewish Last transfusion November 07, 2023 in the setting of her OHT. Hgb remains stable without transfusion. Iron studies demonstrated MATTHIAS thus given IV iron 200 mg x5 days (03/24-03/28). Repeat iron studies demonstrating fully repleted iron. Initiated on epoetin 4000U q14 days bumped to RETACRIT epoetin azalia-epbx 6000U three times weekly. Hemolysis labs (03/21/24) negative. - Monitoring H/H #B/l pleural effusions, s/p PleurX Previously had R pleural effusion s/p R thora (01/11) with pleurx placement on 01/16. Cap and drain MWF Last drained 75cc on 04/08 Patient developed chest pain 04/09 related to Pleurx drainage. Seen by thoracic team. No acute issues and assessed that pain was likely due to irritation from draining against stiff lungs. Instructed team to be careful with draining and to stop the drain at the earliest sign of pain from patient. - Patient declines Pleurx drainage on 04/12 and on 04/15, remains stable on RA Quality Clinical Documentation: Resolved: #VRE bacteremia #MecA+ Staph epidermis bacteremia Unclear source of VRE bacteremia (Bcx 03/18). Patient with known pancreatitis and hx of multiple intra-abdominal infections (see below). Given multiple chronic drains/lines, also concerned about line/drain-associated infection. On, 03/22: Bcx growing staph epi and MeCA Treated with antibiotics guided by ID recommendations as below: - Linezolid 600 mg q12h (03/24 - 04/03) - Daptomycin 8 mg/kg q48hr, timed post-HD (03/19-03/24) - Ceftazidime-avibactam 1.25g q8hr (03/19-03/20, 03/21-03/25) - Metronidazole (last given 03/16, 03/18 -03/24) #History of Leukopenia #History of Neutropenia Most likely 2/2 to immunosuppressive meds iso RJ. CMV VL on 03/28 undetectable with next check scheduled for 04/12/24 GCSF given on 03/21/24 ANC<500 Assessment & Plan (04/14/2024 5:24 PM EST): #Hx of OHT #LVEF 55% (03/21/24) Prolonged hospitalization for advanced HF and OHT from 06/07/23-01/19/24, course with multiple complications. OHT performed 11/04/23. Path from EMB 01/21 showed negative for pathologic antibody mediated rejection. Repeat biopsy on 02/25 showed no evidence of rejection. For immunosuppression, titrated to tacrolimus goal 10-12. At time of recent discharge she was on tacrolimus 1 mg BID, along with mycophenolate 720 mg BID. Volume status on admission 01/30-03/08 was maintained on Bumex 4mg daily as needed, dosed per weight. At discharge Bumex 4mg PO was held given RJ and euvolemia. Did not receive Bumex at [facility]. Last bed weight at [facility] on 04/10 was 151 (though with full bedding in bed). Last echo 03/13/2024, EF 55%, RVSP 25. RHC 04/02 demonstrated RA 0, RV 28/3, PCWP 8, PA //, CO/CI 5.32/3.09, PVR 195 dsc-5. PA sat 54%, FA 98%. EMB on 04/02 demonstrated no evidence of rejection. Immunosuppression: - Given history of likely tacro toxicity, tacro dose was slowly uptitrated during admission with goal tacro levels 8-10. - Tacro 2.5 mg morning/3 mg evening, 8.8 on 04/12, 7.6 on 04/13, 7.9 on 04/14, stable - Daily tacro levels --> MWF - Given significant pancytopenia during this admission, MMF was held until stably no longer neutropenic and restarted on lower dose of 180 mg BID. - Continues on Prednisone 5mg daily ID Prophylaxis: - Acyclovir for HSV ppx (held while neutropenic), current IV, would like to change to PO, emailed [facility] team for clarification - PO Letermovir for CMV PPX - H/h Pravastatin 10mg QD while admitted given concern for pancreatitis mediated - Atovaquone 1500 mg daily - Posaconazole 300mg QD ppx held per ID given unclear indication and can worsen pancreatitis; ultimately Dc'd #Diarrhea Ongoing diarrhea since admission with periods of improvement as well as worsening. Extensive infectious workup performed on numerous dates remained negative. Stool pancreatic elastase resulted low, indicating component of exocrine pancreatic insufficiency (EPI) thus initiated on Creon on 04/02, which was switched to VIOKACE on 04/08. Multiple formulations of tube feeds trialed. - TF: [employer] Renal Support 1.8. - Diarrhea most likely multifactorial with significant contributions from EPI and prolonged antibiosis. - Guar gum trialed and ultimately DCed - Imdoium 2mg 4x/day, held upon admission given constipation - Continue Reglan 10 mg TID (goal to prevent N/V) #RUQ/RLQ pain #Pancreatitis #Hx of abdominal infections #Superinfection (CoNS/MDR E. Coli) of RP/abdominal wall hematomas s/p IR drain placements Recent admission at [facility] (01/28 to 03/08) for +E.Coli infected RP/abdominal wall hematomas, treated with 3 IR drains, Ceftaz-Avibactam and Flagyl (d/c'd 03/16). On this admission, patient reported worsening diffuse abdominal tenderness worse in RUQ/RLQ. Workup notable for initial 03/11 CTAP demonstrating similar to prior 03/05 CTAP pancreatitis, ileus, with stable fluid collection and no new abdominal or pelvic abnormality. Repeat abdominal imaging on 03/18 CTAP notable for c/f hemorrhagic pancreatitis vs bleeding pseudoaneurysm (though reassuringly no active extravasation). Overall, suspect worsening pancreatitis as primary etiology of abdominal pain. MRCP(03/22/24) demonstrated persistent acute interstitial edematous pancreatitis. Dilated and irregular main pancreatic duct, new since January, may be related to pancreatitis. However underlying pancreatic neoplasm must be considered. Abdominal pain resolved during last week of February 2024 following aggressive antibiotic regimen. - GI to perform EUS/ERCP in 6-8 weeks from resolution of current episode to evaluate MRCP findings. Abdominal drains removed on 04/04/24- 04/05/24 once met criteria for removal of < 10cc output over 48 hours. 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 Pt tolerated PO without issue. TPN was restarted shortly after admission and continued at the time of discharge. Continues to tolerate tube feeds at goal, though with some nausea. Was controlled with spot doses of zofran for nausea. Nausea was also controlled with 1 mg ativan injections TID, which was discontinued on 04/06. She received oral ativan 04/06 and 04/07. - Check EKG re QTc if PRNs are needed - QTc 535ms on 04/12 #Anxiety In the setting of a prolonged hospitalization -Psych consulted - PRN atarax 25mg q 6hr - Trazodone 25mg PRN QHS for sleep - Lexapro 5mg daily - SW to consult and follow - Poor sleep, taking Melatonin 3mg and Trazodone 25mg, will increase Melatonin, ? If Remeron would be a good choice for both sleep and appetite? #AoCD #MATTHIAS #Jewish Last transfusion November 07, 2023 in the setting of her OHT. Hgb remains stable without transfusion. Iron studies demonstrated MATTHIAS thus given IV iron 200 mg x5 days (03/24-03/28). Repeat iron studies demonstrating fully repleted iron. Initiated on epoetin 4000U q14 days bumped to RETACRIT epoetin azalia-epbx 6000U three times weekly. Hemolysis labs (03/21/24) negative. - Monitoring H/H #B/l pleural effusions, s/p PleurX Previously had R pleural effusion s/p R thora (01/11) with pleurx placement on 01/16. Cap and drain MWF Last drained 75cc on 04/08 Patient developed chest pain 04/09 related to Pleurx drainage. Seen by thoracic team. No acute issues and assessed that pain was likely due to irritation from draining against stiff lungs. Instructed team to be careful with draining and to stop the drain at the earliest sign of pain from patient. - Patient declines Pleurx drainage on 04/12, remains stable on RA Quality Clinical Documentation: Resolved: #VRE bacteremia #MecA+ Staph epidermis bacteremia Unclear source of VRE bacteremia (Bcx 03/18). Patient with known pancreatitis and hx of multiple intra-abdominal infections (see below). Given multiple chronic drains/lines, also concerned about line/drain-associated infection. On, 03/22: Bcx growing staph epi and MeCA Treated with antibiotics guided by ID recommendations as below: - Linezolid 600 mg q12h (03/24 - 04/03) - Daptomycin 8 mg/kg q48hr, timed post-HD (03/19-03/24) - Ceftazidime-avibactam 1.25g q8hr (03/19-03/20, 03/21-03/25) - Metronidazole (last given 03/16, 03/18 -03/24) #History of Leukopenia #History of Neutropenia Most likely 2/2 to immunosuppressive meds iso RJ. CMV VL on 03/28 undetectable with next check scheduled for 04/12/24 GCSF given on 03/21/24 ANC<500 Assessment & Plan (04/13/2024 12:52 PM EST): #Hx of OHT #LVEF 55% (03/21/24) Prolonged hospitalization for advanced HF and OHT from 06/07/23-01/19/24, course with multiple complications. OHT performed 11/04/23. Path from EMB 01/21 showed negative for pathologic antibody mediated rejection. Repeat biopsy on 02/25 showed no evidence of rejection. For immunosuppression, titrated to tacrolimus goal 10-12. At time of recent discharge she was on tacrolimus 1 mg BID, along with mycophenolate 720 mg BID. Volume status on admission 01/30-03/08 was maintained on Bumex 4mg daily as needed, dosed per weight. At discharge Bumex 4mg PO was held given RJ and euvolemia. Did not receive Bumex at [facility]. Last bed weight at [facility] on 04/10 was 151 (though with full bedding in bed). Last echo 03/13/2024, EF 55%, RVSP 25. RHC 04/02 demonstrated RA 0, RV 28/3, PCWP 8, PA //, CO/CI 5.32/3.09, PVR 195 dsc-5. PA sat 54%, FA 98%. EMB on 04/02 demonstrated no evidence of rejection. Immunosuppression: - Given history of likely tacro toxicity, tacro dose was slowly uptitrated during admission with goal tacro levels 8-10. - Tacro 2.5 mg morning/3 mg evening, 8.8 on 04/12, stable - Daily tacro levels - Given significant pancytopenia during this admission, MMF was held until stably no longer neutropenic and restarted on lower dose of 180 mg BID. - Continues on Prednisone 5mg daily ID Prophylaxis: - Acyclovir for HSV ppx (held while neutropenic), current IV, would like to change to PO, emailed [facility] team for clarification - PO Letermovir for CMV PPX - H/h Pravastatin 10mg QD while admitted given concern for pancreatitis mediated - Atovaquone 1500 mg daily - Posaconazole 300mg QD ppx held per ID given unclear indication and can worsen pancreatitis; ultimately Dc'd #Diarrhea Ongoing diarrhea since admission with periods of improvement as well as worsening. Extensive infectious workup performed on numerous dates remained negative. Stool pancreatic elastase resulted low, indicating component of exocrine pancreatic insufficiency (EPI) thus initiated on Creon on 04/02, which was switched to VIOKACE on 04/08. Multiple formulations of tube feeds trialed. - TF: [employer] Renal Support 1.8. - Diarrhea most likely multifactorial with significant contributions from EPI and prolonged antibiosis. - Guar gum trialed and ultimately DCed - Imdoium 2mg 4x/day, held upon admission given constipation - Continue Reglan 10 mg TID (goal to prevent N/V) #RUQ/RLQ pain #Pancreatitis #Hx of abdominal infections #Superinfection (CoNS/MDR E. Coli) of RP/abdominal wall hematomas s/p IR drain placements Recent admission at [facility] (01/28 to 03/08) for +E.Coli infected RP/abdominal wall hematomas, treated with 3 IR drains, Ceftaz-Avibactam and Flagyl (d/c'd 03/16). On this admission, patient reported worsening diffuse abdominal tenderness worse in RUQ/RLQ. Workup notable for initial 03/11 CTAP demonstrating similar to prior 03/05 CTAP pancreatitis, ileus, with stable fluid collection and no new abdominal or pelvic abnormality. Repeat abdominal imaging on 03/18 CTAP notable for c/f hemorrhagic pancreatitis vs bleeding pseudoaneurysm (though reassuringly no active extravasation). Overall, suspect worsening pancreatitis as primary etiology of abdominal pain. MRCP(03/22/24) demonstrated persistent acute interstitial edematous pancreatitis. Dilated and irregular main pancreatic duct, new since January, may be related to pancreatitis. However underlying pancreatic neoplasm must be considered. Abdominal pain resolved during last week of February 2024 following aggressive antibiotic regimen. - GI to perform EUS/ERCP in 6-8 weeks from resolution of current episode to evaluate MRCP findings. Abdominal drains removed on 04/04/24- 04/05/24 once met criteria for removal of < 10cc output over 48 hours. 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 Pt tolerated PO without issue. TPN was restarted shortly after admission and continued at the time of discharge. Continues to tolerate tube feeds at goal, though with some nausea. Was controlled with spot doses of zofran for nausea. Nausea was also controlled with 1 mg ativan injections TID, which was discontinued on 04/06. She received oral ativan 04/06 and 04/07. - Check EKG re QTc if PRNs are needed - QTc 535ms on 04/12 #Anxiety In the setting of a prolonged hospitalization -Psych consulted - PRN atarax 25mg q 6hr - Trazodone 25mg PRN QHS for sleep - Lexapro 5mg daily - SW to consult and follow #AoCD #MATTHIAS #Jewish Last transfusion November 07, 2023 in the setting of her OHT. Hgb remains stable without transfusion. Iron studies demonstrated MATTHIAS thus given IV iron 200 mg x5 days (03/24-03/28). Repeat iron studies demonstrating fully repleted iron. Initiated on epoetin 4000U q14 days bumped to RETACRIT epoetin azalia-epbx 6000U three times weekly. Hemolysis labs (03/21/24) negative. - Monitoring H/H #B/l pleural effusions, s/p PleurX Previously had R pleural effusion s/p R thora (01/11) with pleurx placement on 01/16. Cap and drain MWF Last drained 75cc on 04/08 Patient developed chest pain 04/09 related to Pleurx drainage. Seen by thoracic team. No acute issues and assessed that pain was likely due to irritation from draining against stiff lungs. Instructed team to be careful with draining and to stop the drain at the earliest sign of pain from patient. - Patient declines Pleurx drainage on 04/12, remains stable on RA Quality Clinical Documentation: Resolved: #VRE bacteremia #MecA+ Staph epidermis bacteremia Unclear source of VRE bacteremia (Bcx 03/18). Patient with known pancreatitis and hx of multiple intra-abdominal infections (see below). Given multiple chronic drains/lines, also concerned about line/drain-associated infection. On, 03/22: Bcx growing staph epi and MeCA Treated with antibiotics guided by ID recommendations as below: - Linezolid 600 mg q12h (03/24 - 04/03) - Daptomycin 8 mg/kg q48hr, timed post-HD (03/19-03/24) - Ceftazidime-avibactam 1.25g q8hr (03/19-03/20, 03/21-03/25) - Metronidazole (last given 03/16, 03/18 -03/24) #History of Leukopenia #History of Neutropenia Most likely 2/2 to immunosuppressive meds iso RJ. CMV VL on 03/28 undetectable with next check scheduled for 04/12/24 GCSF given on 03/21/24 ANC<500 Assessment & Plan (04/12/2024 4:59 PM EST): #Hx of OHT #LVEF 55% (03/21/24) Prolonged hospitalization for advanced HF and OHT from 06/07/23-01/19/24, course with multiple complications. OHT performed 11/04/23. Path from EMB 01/21 showed negative for pathologic antibody mediated rejection. Repeat biopsy on 02/25 showed no evidence of rejection. For immunosuppression, titrated to tacrolimus goal 10-12. At time of recent discharge she was on tacrolimus 1 mg BID, along with mycophenolate 720 mg BID. Volume status on admission 01/30-03/08 was maintained on Bumex 4mg daily as needed, dosed per weight. At discharge Bumex 4mg PO was held given RJ and euvolemia. Did not receive Bumex at [facility]. Last bed weight at [facility] on 04/10 was 151 (though with full bedding in bed). Last echo 03/13/2024, EF 55%, RVSP 25. RHC 04/02 demonstrated RA 0, RV 28/3, PCWP 8, PA , CO/CI 5.32/3.09, PVR 195 dsc-5. PA sat 54%, FA 98%. EMB on 04/02 demonstrated no evidence of rejection. Immunosuppression: - Given history of likely tacro toxicity, tacro dose was slowly uptitrated during admission with goal tacro levels 8-10. - Tacro 2.5 mg morning/3 mg evening, 8.8 on 04/12, stable - Daily tacro levels - Given significant pancytopenia during this admission, MMF was held until stably no longer neutropenic and restarted on lower dose of 180 mg BID. - Prednisone 5mg daily ID Prophylaxis: - Acyclovir for HSV ppx (held while neutropenic), current IV, would like to change to PO, emailed [facility] team for clarification - PO Letermovir for CMV PPX - H/h Pravastatin 10mg QD while admitted given concern for pancreatitis mediated - Atovaquone 1500 mg daily - Posaconazole 300mg QD ppx held per ID given unclear indication and can worsen pancreatitis; ultimately Dc'd #Diarrhea Ongoing diarrhea since admission with periods of improvement as well as worsening. Extensive infectious workup performed on numerous dates remained negative. Stool pancreatic elastase resulted low, indicating component of exocrine pancreatic insufficiency (EPI) thus initiated on Creon on 04/02, which was switched to VIOKACE on 04/08. Multiple formulations of tube feeds trialed. - TF: [employer] Renal Support 1.8. - Diarrhea most likely multifactorial with significant contributions from EPI and prolonged antibiosis. - Guar gum trialed and ultimately DCed - Imdoium 2mg 4x/day, held upon admission given constipation - Continue Reglan 10 mg TID (goal to prevent N/V) #RUQ/RLQ pain #Pancreatitis #Hx of abdominal infections #Superinfection (CoNS/MDR E. Coli) of RP/abdominal wall hematomas s/p IR drain placements Recent admission at [facility] (01/28 to 03/08) for +E.Coli infected RP/abdominal wall hematomas, treated with 3 IR drains, Ceftaz-Avibactam and Flagyl (d/c'd 03/16). On this admission, patient reported worsening diffuse abdominal tenderness worse in RUQ/RLQ. Workup notable for initial 03/11 CTAP demonstrating similar to prior 03/05 CTAP pancreatitis, ileus, with stable fluid collection and no new abdominal or pelvic abnormality. Repeat abdominal imaging on 03/18 CTAP notable for c/f hemorrhagic pancreatitis vs bleeding pseudoaneurysm (though reassuringly no active extravasation). Overall, suspect worsening pancreatitis as primary etiology of abdominal pain. MRCP(03/22/24) demonstrated persistent acute interstitial edematous pancreatitis. Dilated and irregular main pancreatic duct, new since January, may be related to pancreatitis. However underlying pancreatic neoplasm must be considered. Abdominal pain resolved during last week of February 2024 following aggressive antibiotic regimen. - GI to perform EUS/ERCP in 6-8 weeks from resolution of current episode to evaluate MRCP findings. Abdominal drains removed on 04/04/24- 04/05/24 once met criteria for removal of < 10cc output over 48 hours. 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 Pt tolerated PO without issue. TPN was restarted shortly after admission and continued at the time of discharge. Continues to tolerate tube feeds at goal, though with some nausea. Was controlled with spot doses of zofran for nausea. Nausea was also controlled with 1 mg ativan injections TID, which was discontinued on 04/06. She received oral ativan 04/06 and 04/07. - Check EKG re QTc if PRNs are needed - QTc 535ms on 04/12 #Anxiety In the setting of a prolonged hospitalization -Psych consulted - PRN atarax 25mg q 6hr - Trazodone 25mg PRN QHS for sleep - Lexapro 5mg daily - SW to consult and follow #AoCD #MATTHIAS #Jewish Last transfusion November 07, 2023 in the setting of her OHT. Hgb remains stable without transfusion. Iron studies demonstrated MATTHIAS thus given IV iron 200 mg x5 days (03/24-03/28). Repeat iron studies demonstrating fully repleted iron. Initiated on epoetin 4000U q14 days bumped to RETACRIT epoetin azalia-epbx 6000U three times weekly. Hemolysis labs (03/21/24) negative. - Monitoring H/H #B/l pleural effusions, s/p PleurX Previously had R pleural effusion s/p R thora (01/11) with pleurx placement on 01/16. Cap and drain MWF Last drained 75cc on 04/08 Patient developed chest pain 04/09 related to Pleurx drainage. Seen by thoracic team. No acute issues and assessed that pain was likely due to irritation from draining against stiff lungs. Instructed team to be careful with draining and to stop the drain at the earliest sign of pain from patient. - Patient declines Pleurx drainage on 04/12, remains stable on RA Quality Clinical Documentation: Resolved: #VRE bacteremia #MecA+ Staph epidermis bacteremia Unclear source of VRE bacteremia (Bcx 03/18). Patient with known pancreatitis and hx of multiple intra-abdominal infections (see below). Given multiple chronic drains/lines, also concerned about line/drain-associated infection. On, 03/22: Bcx growing staph epi and MeCA Treated with antibiotics guided by ID recommendations as below: - Linezolid 600 mg q12h (03/24 - 04/03) - Daptomycin 8 mg/kg q48hr, timed post-HD (03/19-03/24) - Ceftazidime-avibactam 1.25g q8hr (03/19-03/20, 03/21-03/25) - Metronidazole (last given 03/16, 03/18 -03/24) #History of Leukopenia #History of Neutropenia Most likely 2/2 to immunosuppressive meds iso RJ. CMV VL on 03/28 undetectable with next check scheduled for 04/12/24 GCSF given on 03/21/24 ANC<500 Assessment & Plan (04/11/2024 9:21 PM EST): #Hx of OHT #LVEF 55% (03/21/24) Prolonged hospitalization for advanced HF and OHT from 06/07/23-01/19/24, course with multiple complications. OHT performed 11/04/23. Path from EMB 01/21 showed negative for pathologic antibody mediated rejection. Repeat biopsy on 02/25 showed no evidence of rejection. For immunosuppression, titrated to tacrolimus goal 10-12. At time of recent discharge she was on tacrolimus 1 mg BID, along with mycophenolate 720 mg BID. Volume status on admission 01/30-03/08 was maintained on Bumex 4mg daily as needed, dosed per weight. At discharge Bumex 4mg PO was held given RJ and euvolemia. Did not receive Bumex at [facility]. Last bed weight at [facility] on 04/10 was 151 (though with full bedding in bed). Last echo 03/13/2024, EF 55%, RVSP 25. RHC 04/02 demonstrated RA 0, RV 28/3, PCWP 8, PA /, CO/CI 5.32/3.09, PVR 195 dsc-5. PA sat 54%, FA 98%. EMB on 04/02 demonstrated no evidence of rejection. Immunosuppression: - Given history of likely tacro toxicity, tacro dose was slowly uptitrated during admission with goal tacro levels 8-10. Patient was discharged on 2.5 mg morning/3 mg evening dose of tacro. - Daily tacro levels - Given significant pancytopenia during this admission, MMF was held until stably no longer neutropenic and restarted on lower dose of 180 mg BID. - Prednisone 5mg daily ID Prophylaxis: - Acyclovir for HSV ppx (held while neutropenic) - PO Letermovir for CMV PPX - H/h Pravastatin 10mg QD while admitted given concern for pancreatitis mediated - Atovaquone 1500 mg daily - Posaconazole 300mg QD ppx held per ID given unclear indication and can worsen pancreatitis; ultimately Dc'd #Diarrhea Ongoing diarrhea since admission with periods of improvement as well as worsening. Extensive infectious workup performed on numerous dates remained negative. Stool pancreatic elastase resulted low, indicating component of exocrine pancreatic insufficiency (EPI) thus initiated on Creon on 04/02, which was switched to VIOKACE on 04/08. Multiple formulations of tube feeds trialed. - TF: [facility] Renal Support 1.8. - Diarrhea most likely multifactorial with significant contributions from EPI and prolonged antibiosis. - Guar gum trialed and ultimately DCed - Imdoium 2mg 4x/day, held upon admission given constipation - Continue Reglan 10 mg TID #RUQ/RLQ pain #Pancreatitis #Hx of abdominal infections #Superinfection (CoNS/MDR E. Coli) of RP/abdominal wall hematomas s/p IR drain placements Recent admission at [facility] (01/28 to 03/08) for +E.Coli infected RP/abdominal wall hematomas, treated with 3 IR drains, Ceftaz-Avibactam and Flagyl (d/c'd 03/16). On this admission, patient reported worsening diffuse abdominal tenderness worse in RUQ/RLQ. Workup notable for initial 03/11 CTAP demonstrating similar to prior 03/05 CTAP pancreatitis, ileus, with stable fluid collection and no new abdominal or pelvic abnormality. Repeat abdominal imaging on 03/18 CTAP notable for c/f hemorrhagic pancreatitis vs bleeding pseudoaneurysm (though reassuringly no active extravasation). Overall, suspect worsening pancreatitis as primary etiology of abdominal pain. MRCP(03/22/24) demonstrated persistent acute interstitial edematous pancreatitis. Dilated and irregular main pancreatic duct, new since January, may be related to pancreatitis. However underlying pancreatic neoplasm must be considered. Abdominal pain resolved during last week of February 2024 following aggressive antibiotic regimen. - GI to perform EUS/ERCP in 6-8 weeks from resolution of current episode to evaluate MRCP findings. Abdominal drains removed on 04/04/24- 04/05/24 once met criteria for removal of < 10cc output over 48 hours. 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 placed on 03/19/24. - HD MWF - Hyperphosphatemia managed with 667mg of Phoslo TID, phos 3.5 on 04/15 - High dose diuretic trialed on non-HD days, minimal urine output - Track I/Os, daily weights - More frequent voiding 4-7x/day, need to record volumes and quantify Assessment & Plan (04/22/2024 3:58 PM EST): #Acute renal failure, multifactorial Baseline unclear, but has been as low as 0.5 in December 2023. Labs mid-February: Cr 2.50 BUN 116 [place] 14.3. Overall, suspect intrinsic RJ 2/2 acute pancreatitis, tacro toxicity as the initial insult. Then likely component of cardiorenal given volume overload. Patient developed AMS, lethargy concerning for uremic encephalopathy on 03/19 and was transferred to MICU for urgent initiation of CLUTCH REBUILDER. Deemed too high risk to obtain renal biopsy. Patient had TDC placed on 03/19/24. - HD MWF - Hyperphosphatemia managed with 667mg of Phoslo TID, phos 3.5 on 04/15 - High dose diuretic trialed on non-HD days, minimal urine output - Track I/Os, daily weights - More frequent voiding 4-7x/day, need to record volumes and quantify Assessment & Plan (04/21/2024 11:49 AM EST): #Acute renal failure, multifactorial Baseline unclear, but has been as low as 0.5 in December 2023. Labs mid-February: Cr 2.50 BUN 116 [place] 14.3. Overall, suspect intrinsic RJ 2/2 acute pancreatitis, tacro toxicity as the initial insult. Then likely component of cardiorenal given volume overload. Patient developed AMS, lethargy concerning for uremic encephalopathy on 03/19 and was transferred to MICU for urgent initiation of CLUTCH REBUILDER. Deemed too high risk to obtain renal biopsy. Patient had TDC placed on 03/19/24. - HD MWF - Hyperphosphatemia managed with 667mg of Phoslo TID, phos 3.5 on 04/15 - High dose diuretic trialed on non-HD days, minimal urine output - Track I/Os, daily weights - More frequent voiding 4-7x/day, need to record volumes and quantify Assessment & Plan (04/20/2024 12:46 PM EST): #Acute renal failure, multifactorial Baseline unclear, but has been as low as 0.5 in December 2023. Labs mid-February: Cr 2.50 BUN 116 [place] 14.3. Overall, suspect intrinsic RJ 2/2 acute pancreatitis, tacro toxicity as the initial insult. Then likely component of cardiorenal given volume overload. Patient developed AMS, lethargy concerning for uremic encephalopathy on 03/19 and was transferred to MICU for urgent initiation of CLUTCH REBUILDER. Deemed too high risk to obtain renal biopsy. Patient had TDC placed on 03/19/24. - HD MWF - Hyperphosphatemia managed with 667mg of Phoslo TID, phos 3.5 on 04/15 - High dose diuretic trialed on non-HD days, minimal urine output - Track I/Os, daily weights - More frequent voiding 4-7x/day, need to record volumes and quantify Assessment & Plan (04/19/2024 3:27 PM EST): #Acute renal failure, multifactorial Baseline unclear, but has been as low as 0.5 in December 2023. Labs mid-February: Cr 2.50 BUN 116 [place] 14.3. Overall, suspect intrinsic RJ 2/2 acute pancreatitis, tacro toxicity as the initial insult. Then likely component of cardiorenal given volume overload. Patient developed AMS, lethargy concerning for uremic encephalopathy on 03/19 and was transferred to MICU for urgent initiation of CLUTCH REBUILDER. Deemed too high risk to obtain renal biopsy. Patient had TDC placed on 03/19/24. - HD MWF - Hyperphosphatemia managed with 667mg of Phoslo TID, phos 3.5 on 04/15 - High dose diuretic trialed on non-HD days, minimal urine output - Track I/Os, daily weights - More frequent voiding 4-7x/day, need to record volumes and quantify Assessment & Plan (04/18/2024 3:31 PM EST): #Acute renal failure, multifactorial Baseline unclear, but has been as low as 0.5 in December 2023. Labs mid-February: Cr 2.50 BUN 116 [place] 14.3. Overall, suspect intrinsic JR 2/2 acute pancreatitis, tacro toxicity as the initial insult. Then likely component of cardiorenal given volume overload. Patient developed AMS, lethargy concerning for uremic encephalopathy on 03/19 and was transferred to MICU for urgent initiation of CLUTCH REBUILDER. Deemed too high risk to obtain renal biopsy. Patient had TDC placed on 03/19/24. - HD MWF - Hyperphosphatemia managed with 667mg of Phoslo TID, phos 3.5 on 04/15 - High dose diuretic trialed on non-HD days, minimal urine output - Track I/Os, daily weights - More frequent voiding 4-7x/day, need to record volumes and quantify Assessment & Plan (04/17/2024 4:55 PM EST): #Acute renal failure, multifactorial Baseline unclear, but has been as low as 0.5 in December 2023. Labs mid-February: Cr 2.50 BUN 116 [place] 14.3. Overall, suspect intrinsic RJ 2/2 acute pancreatitis, tacro toxicity as the initial insult. Then likely component of cardiorenal given volume overload. Patient developed AMS, lethargy concerning for uremic encephalopathy on 03/19 and was transferred to MICU for urgent initiation of CLUTCH REBUILDER. Deemed too high risk to obtain renal biopsy. Patient had TDC placed on 03/19/24. - HD MWF - Hyperphosphatemia managed with 667mg of Phoslo TID, phos 3.5 on 04/15 - High dose diuretic trialed on non-HD days, minimal urine output - Track I/Os, daily weights - More frequent voiding 4-7x/day, need to record volumes and quantify Assessment & Plan (04/16/2024 5:29 PM EST): #Acute renal failure, multifactorial Baseline unclear, but has been as low as 0.5 in December 2023. Labs mid-February: Cr 2.50 BUN 116 [place] 14.3. Overall, suspect intrinsic RJ 2/2 acute pancreatitis, tacro toxicity as the initial insult. Then likely component of cardiorenal given volume overload. Patient developed AMS, lethargy concerning for uremic encephalopathy on 03/19 and was transferred to MICU for urgent initiation of CLUTCH REBUILDER. Deemed too high risk to obtain renal biopsy. Patient had TDC placed on 03/19/24. - HD MWF - Hyperphosphatemia managed with 667mg of Phoslo TID, phos 3.5 on 04/15 - High dose diuretic trialed on non-HD days, minimal urine output - Track I/Os, daily weights - More frequent voiding 4-7x/day, need to record volumes and quantify Assessment & Plan (04/15/2024 1:17 PM EST): #Acute renal failure, multifactorial Baseline unclear, but has been as low as 0.5 in December 2023. Labs mid-February: Cr 2.50 BUN 116 [place] 14.3. Overall, suspect intrinsic RJ 2/2 acute pancreatitis, tacro toxicity as the initial insult. Then likely component of cardiorenal given volume overload. Patient developed AMS, lethargy concerning for uremic encephalopathy on 03/19 and was transferred to MICU for urgent initiation of CLUTCH REBUILDER. Deemed too high risk to obtain renal biopsy. Patient had TDC placed on 03/19/24. - HD MWF - Hyperphosphatemia managed with 667mg of Phoslo TID, phos 3.2 on 04/12, pending on 04/15 - High dose diuretic trialed on non-HD days, minimal urine output - Track I/Os, daily weights - More frequent voiding 4-7x/day, need to record volumes and quantify Assessment & Plan (04/14/2024 5:24 PM EST): #Acute renal failure, multifactorial Baseline unclear, but has been as low as 0.5 in December 2023. Labs mid-February: Cr 2.50 BUN 116 [place] 14.3. Overall, suspect intrinsic RJ 2/2 acute pancreatitis, tacro toxicity as the initial insult. Then likely component of cardiorenal given volume overload. Patient developed AMS, lethargy concerning for uremic encephalopathy on 03/19 and was transferred to MICU for urgent initiation of CLUTCH REBUILDER. Deemed too high risk to obtain renal biopsy. Patient had TDC placed on 03/19/24. - HD MWF - Hyperphosphatemia managed with 667mg of Phoslo TID, phos 3.2 on 04/12 - High dose diuretic trialed on non-HD days, minimal urine output - Track I/Os, daily weights - Incontinent, more frequent voiding 4-7x/day, need to record volumes when able Assessment & Plan (04/13/2024 12:52 PM EST): #Acute renal failure, multifactorial Baseline unclear, but has been as low as 0.5 in December 2023. Labs mid-February: Cr 2.50 BUN 116 [place] 14.3. Overall, suspect intrinsic RJ 2/2 acute pancreatitis, tacro toxicity as the initial insult. Then likely component of cardiorenal given volume overload. Patient developed AMS, lethargy concerning for uremic encephalopathy on 03/19 and was transferred to MICU for urgent initiation of CLUTCH REBUILDER. Deemed too high risk to obtain renal biopsy. Patient had TDC placed on 03/19/24. - HD MWF - Hyperphosphatemia managed with 667mg of Phoslo TID, will f/u phos level - High dose diuretic trialed on non-HD days, minimal urine output - Track I/Os, daily weights - Incontinent, but reports 4 voids yesterday, encouraged to start tracking frequency in her phone and will record volumes when able Assessment & Plan (04/12/2024 1:56 PM EST): #Acute renal failure, multifactorial Baseline unclear, but has been as low as 0.5 in December 2023. Labs mid-February: Cr 2.50 BUN 116 [place] 14.3. Overall, suspect intrinsic RJ 2/2 acute pancreatitis, tacro toxicity as the initial insult. Then likely component of cardiorenal given volume overload. Patient developed AMS, lethargy concerning for uremic encephalopathy on 03/19 and was transferred to MICU for urgent initiation of CLUTCH REBUILDER. Deemed too high risk to obtain renal biopsy. Patient had TDC placed on 03/19/24. - HD MWF - Hyperphosphatemia managed with 667mg of Phoslo TID, will f/u phos level - High dose diuretic trialed on non-HD days, minimal urine output - Track I/Os, daily weights - Incontinent, but reports 4 voids yesterday, encouraged to start tracking frequency in her phone and will record volumes when able Assessment & Plan (04/11/2024 9:21 PM EST): #Acute renal failure, multifactorial Baseline unclear, but has been as low as 0.5 in December 2023. Labs mid-February: Cr 2.50 BUN 116 [place] 14.3. Overall, suspect intrinsic RJ 2/2 acute pancreatitis, tacro toxicity as the initial insult. Then likely component of cardiorenal given volume overload. Patient developed AMS, lethargy concerning for uremic encephalopathy on 03/19 and was transferred to MICU for urgent initiation of CLUTCH REBUILDER. Deemed too high risk to obtain renal biopsy. Patient had TDC placed on 03/19/24. 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 pacemaker 02/05/20232024 Congenital stenosis of pulmonary valve 09/18/2022 11/14/2024 Ventricular dysfunction 09/18/202210/26 Ventricular ectopy 09/18/2022 NSVT (nonsustained ventricular tachycardia) 08/23/2021 11/14/2024 Overview (09/18/2022): 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 08/04/2020 05/07/2024 Overview (09/18/2022): With pulmonary stenosis, ventricular septal defect; status post multiple interventions Nonrheumatic pulmonary valve stenosis 08/04/2020 11/14/2024 VSD (ventricular septal defect) 08/04/2020 11/14/2024 Chronic combined systolic an d diastolic congestive heart failure 08/04/2020 05/07/2024 Atrial flutter 08/04/2020 11/14/2024 Encounters Date Type Department Care Team Description 11/18/2024 Telephone [facility] Cardiac Transplant [address] [place] [address] Yessenia Schmitt CNP Appointment 11/18/2024 Orders Only [facility] Tissue Type [address] [place] [address] Cornelio Dunham MD 11/18/2024 Telephone [facility] Cardiac Transplant [address] [place] [address] Yessenia Schmitt CNP 11/15/2024 1:53 PM EDT - 11/15/2024 3:18 PM EDT Surgery [facility] Cardiac Grading Machine Operator [address] [place] [address] Jose Colon MD, PhD Coronary Arteriogram 11/15/2024 9:44 AM EDT - 11/15/2024 7:47 PM EDT Hospital Encounter [facility] L2 PRU [address] [place] [address] Anni Oscar MD Discharge Disposition: Home or Self Care 11/15/2024 9:22 AM EDT - 11/15/2024 9:43 AM EDT Hospital Encounter [facility] Phlebotomy Admitting [address] [place] [address] Discharge Disposition: Home or Self Care 11/15/2024 Telephone [facility] Cardiac Transplant [address] [place] [id number] Kathya Celaya RN Cardiac Transplant Office Visit RN Follow Up Call 11/15/2024 Procedure Pass [facility] Cardiac Grading Machine Operator [address] [place] [id number] 11/14/2024 12:53 PM EDT - 11/14/2024 11:59 PM EDT Hospital Encounter [facility] Phlebotomy [address] [place] [address] Renetta Rosenbaum CNP Discharge Disposition: Home or Self Care 11/14/2024 11:00 AM EDT - 11/14/2024 12:52 PM EDT Hospital Encounter [facility] Echocardiography [address] [place] [address] Renetta Rosenbaum CNP Brennan, Ella Kay Arrived Discharge Disposition: Home or Self Care 11/14/2024 10:00 AM EDT Office Visit [facility] Cardiac Transplant [address] [place] [address] Cornelio Dunham MD 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); Immunosuppression; CKD stage 3b, GFR 30-44 ml/min 11/14/2024 Prep for Surgery [facility] Cardiac Transplant [address] [place] [address] Kathya Celaya sister superior replaced by transplant (Primary Dx) 11/13/2024 Telephone [facility] Cardiac Transplant [address] [place] [address] Renetta Rosenbaum, MARVIN 11/13/2024 Orders Only [facility] Cardiovascular Clinic [address] [place] [address] Cornelio Dunham MD 11/13/2024 Orders Only [facility] Cardiac Transplant [address] [place] [address] Cintia Serra, sister superior replaced by transplant (Primary Dx) 11/13/2024 Orders Only [facility] Cardiac Transplant [address] [place] [address] Cintia Serra, RN Vitamin D deficiency, unspecified (Primary Dx); 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 11/12/2024 Orders Only [facility] Cardiac Grading Machine Operator [address] [place] [address] Addi Noble RN ICD (implantable cardioverter-defibr illator) in place 11/05/2024 Telephone [facility] Cardiovascular Clinic [address] [place] [address] Renetta Rosenbaum CNP Lever/ Advice 11/04/2024 Telephone [facility] Cardiac Transplant [address] [place] [address] Nancy Hirsch RN 2024 Telephone [facility] Cardiac Transplant [address] [place] [address] Yessenia Schmitt CNP 09/03/2024 Telephone [facility] Cardiac Transplant [address] [place] [address] Nancy Hirsch RN 08/30/2024 Procedure Pass [facility] Echocardiography [address] [place] [address] 08/30/2024 Orders Only [facility] Cardiac Transplant [address] [place] [address] Deniz Manrique MD 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) 08/30/2024 Orders Only [facility] Cardiac Transplant [address] [place] [address] Deniz Manrique MD Heart transplant status (Primary Dx) 08/30/2024 Orders Only [facility] Cardiac Transplant [address] [place] [address] Deniz Manrique MD 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) 08/23/2024 Orders Only [facility] Cardiac Transplant [address] [place] [address] Renetta Rosenbaum, [employer] ME[employer]IC 08/22/2024 9:06 AM EDT - 08/22/2024 11:59 PM EDT Hospital Encounter [facility] Phlebotomy [address] [place] [address] Deniz Manrique MD Discharge Disposition: Home or Self Care 08/22/2024 8:30 AM EDT Office Visit [facility] Cardiac Transplant [address] [place] [address] Deniz Manrique MD Lever, Renetta Huerta, [employer] MECH[employer]IC 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); Cardiac dysrhythmia 08/22/2024 Orders Only [facility] Cardiac Transplant [address] [place] [address] Leah Faulkner RN 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) 08/22/2024 Procedure Pass [facility] Cardiac Grading Machine Operator [address] [place] [address] 08/21/2024 Telephone [facility] Cardiac Transplant [address] [place] [address] Jose Rosenbauma Deanna, AIRCRA[employer] MECH[employer]IC 08/21/2024 Telephone [facility] Cardiac Transplant [address] [place] [address] Robi, Renetta Deanna, [employer] MECH[employer]IC Appointment 08/21/2024 Orders Only [facility] Cardiac Transplant [address] [place] [address] Robi, Renetta Deanna, [employer] MECH[employer]IC 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) 08/21/2024 Orders Only [facility] Cardiovascular Clinic [address] [place] [address] Deniz Manrique MD 08/20/2024 Telephone [facility] Cardiovascular Clinic [address] [place] [address] Robi, Renetta Deanna, [employer] ME[employer]IC Lever/ medication review from Last 3 Months Immunizations Immunization Administration Dates Next Due COVID-19 (Pre) Moderna Vaccine Ped 6-11 06/17/2020,05/20/2020 COVID-19 (Pre-01/16) Moderna Vaccine Adult Booster/6-11yrs Primary 04/30/2021 DTP 11/25/1988, 6,04/15/1983,01/31,1982 HPV9 09/06/2020 Hep A-Hep B 02/13/2023 Hepatitis A, Adult 09/04/2020 Hepatitis B Adult 09/05/2020 Hib,HbOC 11/29/1985 INFLUENZA, SPLIT VIRUS, TRIV ALENT W/ PRESERVATIVE IM 03/01/1999,01/26/1984 Influenza Quadrivalent MDCK Preservative Free IM 01/20/2023 Influenza, Unspecified Formulation 03/18,01/30/2009(Deferred: Patient Decision) MMR 11/05/2022,02/24/1991 Measles 01/26/1984 Mumps 01/26/1984 Pneumococcal conjugate PCV13 09/04/2020 Pneumococcal conjugate PCV20 02/15/2023 Pneumococcal polysaccharide PPSV23 09/29,01/30/2009(Deferred: Patient Decision) Polio - OPV 11/25/1988, 5,01/31/1983,12/20 Tdap 09/05/2020,08/04/2010 Zoster recombinant 02/10/2023,09/06/2020 Family History Medical History Relation Comments Testicular cancer Brother 1 Other Brother 2 Overdose Stroke Father Asthma Mother Emphysema Mother Bronchiectasis Relation Status Comments Brother 1 Brother 2 Father Mother Alive Social History Tobacco Use Types Packs/Day Years [...] high school, GED, job training, learning the Chinese language, technical skills, or developing parenting skills)? [...] Orientation Straight 01/13/2022 9: 57 AM EDT Last Filed Vital Signs Vital Sign Reading Time Taken Comments Blood Pressure 121/65 11/15/2024 6:30 PM EDT Pulse 76 11/15/2024 6:30 PM EDT Temperature 36 C (96.8 F) 11/15/2024 3:45 PM EDT Respiratory Rate 19 11/15/2024 6:30 PM EDT Oxygen Saturation 97% 11/15/2024 6:30 PM EDT Inhaled Oxygen Concentration 50% 01/17/2024 4 :45 PM EDT Weight 66.4 kg (146 lb 6.4 oz) 11/15/2024 10:05 AM EDT Height 160 cm (5' 3 ) 11/15/2024 10:05 AM EDT Body Mass Index 25.93 11/15/2024 10:05 AM EDT Plan of Treatment Upcoming Encounters Date Type Department Care Team (Late st Contact Info) Description 11/28/2024 10:20 AM EDT Appointment [facility] Skeletal Health/Osteoporosis Ctr. and Bone Density Unit [address] [place] [address] Renetta Rosenbaum, AIRCRAFT ORDNANCE SYSTEMS MECHANIC [address] [place] [id number] [email or web address] 12/09/2024 8:00 AM EDT Office Visit [facility] Cardiac Transplant [address] [place] [address] Cornelio Dunham MD [address] [place] [address] [place] [address] [email or web address] 12/09/2024 9:00 AM EDT Office Visit [facility] Cardiac Transplant [address] [place] [address] Unknown, Natalie, 01/27/2025 4:40 PM EST Office Visit [facility] [address] [place], [place] [phone] [place] [address] Jose Hidalgo MD, MPH [address] [facility] [place] [address] [email or web address] Health Maintenance Due Date Last Done Comments PAP SMEAR 10/03/2003 COVID-19 VACCINE (2 - Pfizer risk series) 02/10/2023 01/20/2023, 04/30/2021, 06/17/2020, Additional history exists DEPRESSION SCREENING 02/23/2023 02/23/2022 INFLUENZA VACCINE (#1) 2024 , 03/18/2018, 03/01/1999, Additional history exists MAMMOGRAM 11/03/2024 11/03/2022 BLOOD PRESSURE 05/17/2025 11/14/2024 SCREENING FOR DIABETES 11/15/2027 11/14/2024, 2024 Adult Td,Tdap Booster 09/05/2030 09/05/2020, 011 HIB VACCINES Completed 11/29/1985 PNEUMOCOCCAL VACCINES (0-49 years) Completed 02/15/2023, 09/04/2020, 09/29/2010 HIV ONE-TIME SCREENING (18-65 YEARS) Completed 03/15/2024 HEPATITIS C SCREENING Completed 03/16/2024 , 12/06/2023, 12/06/2023, Additional history exists SMOKING STATUS SCREENING (Once After 26 Yrs) Completed 11/14/2024 MENINGOCOCCAL VACCINES (ACWY) Aged Out No longer eligible based on patient's age to complete this topic MENINGOCOCCAL VACCINES (B) Aged Out N o longer eligible based on patient's age to complete this topic Medical Devices Explanted Type Area Business Machine Operator Device Identifier Shelf Expiration Date Model / Serial / Lot Trendmeon D152 Dynagen [id number] Implanted:07/27 (Quantity not on file) ICD FieldSolutions D152 DYNAGEN / [id number] / Procedures Procedure Name Priority Date/Time Associated Diagnosis Comments ENDOMYOCARDIAL BIOPSY, RIGHT VENTRICLE POST TRANSPLANT Routine 11/15/2024 3:24 PM EDT 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 RIGHT HEART CATHETERIZATION Routine 11/15/2024 3:24 PM EDT 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 CORONARY ARTERIOGRAM Routine 11/15/2024 3:24 PM EDT 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 POCT OXYHEMOGLOBIN Routine 11/15/2024 2: 41 PM EDT POCT OXYHEMOGLOBIN Routine 11/15/2024 2: 39 PM EDT TACROLIMUS LEVEL Routine 11/15/2024 9:27 AM EDT 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 URINE HCG STAT 11/15/2024 9:27 AM EDT ANATOMIC PATHOLOGY Routine 11/15/2024 12 :00 AM EDT TACROLIMUS LEVEL Routine 11/14/2024 1:05 PM EDT 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 URINALYSIS Routine 11/14/2024 1:05 PM EDT 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 TOXICOLOGY SCREEN, URINE Routine 11/14/2024 1:05 PM [...] 1:05 PM EDT Vitamin D deficiency, unspecified CBC AND DIFFERENTIAL Routine 11/14/2024 1:05 PM EDT 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 HLA CLASS 2 SINGLE AG ANTIBODY ID (3000) Routine 11/14/2024 1:05 PM EDT 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 HLA CLASS 1 SINGLE AG ANTIBODY ID (3000) Routine 11/14/2024 1:05 PM EDT 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 MICROALBUMIN/CREATININE RATIO, RANDOM URINE Routine 11/14/2024 1:05 PM EDT Heart transplant recipient Cytomegalovirus (CMV) PCR, blood Routine 11/14/2024 1:05 PM EDT 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 Ginger-Machado virus (EBV) PCR, blood Routine 11/14/2024 1:05 PM EDT 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 TTE COMPREHENSIVE Routine 11/14/2024 11: 37 AM EDT Heart transplant status ECG 12-LEAD Routine 11/14/2024 10:17 AM EDT TISSUE TYPING - RECIPIENT/DONOR INFORMATION AND RESULTS Routine 11/14/2024 BASIC METABOLIC PANEL Routine 08/29/2024 9:43 AM EDT TACROLIMUS LEVEL Routine 08/29/2024 9:43 AM EDT CBC AND DIFFERENTIAL Routine 08/22/2024 9:24 AM EDT 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 COMPREHENSIVE METABOLIC PANEL Routine 08/22/2024 9:24 AM EDT 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 MAGNESIUM Routine 08/22/2024 9:24 AM EDT 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 NT-PROBNP Routine 08/22/2024 9:24 AM EDT 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 TACROLIMUS LEVEL Routine 08/22/2024 9:24 AM EDT 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 CYSTATIN C Routine 08/22/2024 9:24 AM EDT 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 Cytomegalovirus (CMV) PCR, blood Routine 08/22/2024 9:24 AM EDT 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 ECG 12-LEAD Routine 08/22/2024 8:42 AM EDT Cardiac dysrhythmia HEPATITIS C ANTIBODY, QUALITATIVE Routine 03/16/2024 6:10 AM EST BI MAMMOGRAM SCREENING WITH TOMOSYNTHESIS WITH CAD (BILATERAL) Routine 11/03/2022 2:11 PM EDT from Last 3 Months or Most Recently Relevant to Health Maintenance Results * CORONARY ARTERIOGRAM, RIGHT HEART CATHETERIZATION, ENDOMYOCARDIAL BIOPSY, RIGHT VENTRICLE POST TRANSPLANT (11/15/2024 3:24 PM EDT) Anatomical Region Laterality Modality BWHXRANGIO Narrative 11/15/2024 5:14 PM EDT 7Fr LIJV [...] CATH ORDERABL ES Final Result * (ABNORMAL) Grading Machine Operator Oxyhemoglobin (11/15/2024 2:41 PM EDT) Only the most recent of2 resultswithin the time period is included. Oxy Hgb 92.9 % [facility] CARDIA C CATH DIAG INTERVENTION CTR Comment: Please interpret result based on site of collection in [facility] procedure log. REF RANGE (ART 94.0-100.0, GABRIELE 60.0-85.0) HGB 10.2(L) 12.0 - 16.0 g/dL [facility] CARDIAC CATH DIAG INTERVENTION CTR 11/15/2024 2:41 PM EDT 11/15/2024 2:40 PM EDT Anni Oscar MD POINT OF CARE TEST ORDERABLES Final Result Performing Organization Address [facility] Co de Phone Number [facility] CARDIAC CATH DIAG INTERVENTION CTR [address] [place] [address] * Tacrolimus level (11/15/2024 9:27 AM EDT) Only the most recent of4 resultswithin the time period is included. TACROLIMUS 5.2 3.0 - 15.0 ng/mL [facility] Comment:REFERENCE RANGE IS V ARIABLE AND DEPENDS ON CLINICAL INDICATION. CONTACT TRANSPLANT TEAM OR PHARMACY WITH ANY QUESTIONS. THIS TEST AND ITS PERFORMANCE CHARACTERISTICS WERE DETERMINED BY THE CLINICAL CHEMISTRY LAB, [facility]. IT HAS NOT BEEN CLEARED OR APPROVED BY THE U.S. FDA, WHICH HAS DETERMINED THAT SUCH CLEARANCE OR APPROVAL IS NOT NECESSARY. 11/15/2024 9:27 AM EDT 11/15/2024 9:36 AM EDT Cornelio Dunham MD LAB BLOOD ORDERABLES Final Result Performing Organization Address City/[facility]/ZIP Co de Phone Number [facility] [address] [place] [phone] * HCG, urine (11/15/2024 9:27 AM EDT) URINE TEST Negative Negative [facility] Urine (Urine) 11/15/2024 9:2 7 AM EDT 11/15/2024 9:36 AM EDT us Deniz Manrique MD URINE ORDERABLES Final R esult [facility] [address] [place], [place] [id number] * Anatomic Pathology (11/15/2024 12:00 AM EDT) 11/15/2024 11/15/2024 Narrative [facility] - 11/18/2024 3:46 PM EDT CASE: [id number] PATIENT: FIDELINA PERAZA Date: 1980 Sex: Female [facility] Department of Pathology [address] [place] [address] [employer] License No.: [id number] Special Needs Bus Driver: Dr. Ventura Gong M.D., Ph.D. Physician: DENIZ [...] on Monday November 18, 2024 at 03:46:31PM Deniz Dailey MD, PhD PATHOLOGY ORDERABLES Nisha l Result Performing Organization Address [facility] Co de Phone Number [facility] CLINICAL [address] [address] * HLA Class 2 Single Ag Antibody ID (3000) (11/14/2024 1:05 PM EDT) [id number] Ab ID 3000 SEE TISSUE TYPING RPT IN [facility] UNDER CHART REVIEW-LAB [facility] 11/14/2024 1:05 PM EDT 11/14/2024 2:12 PM EDT Cornelio Dunham MD LAB BLOOD ORDERABLES Final Result Performing Organization Address [facility] Co de Phone Number [address] [address] * HLA Class 1 Single Ag Antibody ID (3000) (11/14/2024 1:05 PM EDT) Pathologist [facility] [id number] Ab ID [id number] SEE TISSUE TYPING RPT IN [facility] UNDER CHART REVIEW-LAB [facility] 11/14/2024 1:05 PM EDT 11/14/2024 2:12 PM EDT Cornelio Dunham MD LAB BLOOD ORDERABLES Final Result Performing Organization Address [facility] Co de Phone Number [address] [address] * (ABNORMAL) Cystatin C (11/14/2024 1:05 PM EDT) Only the most recent of2 resultswithin the time period is included. Cystatin C 1.62(H) 0.61 - 0.95 mg/L [facility] eGFR (Cystatin C) 41(L) >59 mL/min/1. 73m2 [facility] Comment: Cystatin C-based eGFR may differ substantially from creatinine-based eGFR in patients with abnormal muscle mass or acutely changing renal function. Please interpret together with relevant clinical features. 11/14/2024 1:05 PM EDT 11/14/2024 2:11 PM EDT Cornelio Dunham MD LAB BLOOD ORDERABLES Final Result Performing Organization Address [facility] [place] [address] * Nicotine and metabolites, random urine (11/14/2024 1:05 PM EDT) UR NICOTINE G HARSHAD WAS NOTIFIED, SAMPLE CONTAMINATED ng/mL [facility] UR COTININE G HARSHAD WAS NOTIFIED, SAMPLE CONTAMINATED ng/mL [facility] UR NORNICOTINE G HARSHAD WAS NOTIFIED, SAMPLE CONTAMINATED ng/mL [facility] UR ANABASINE G HARSHAD WAS NOTIFIED, SAMPLE CONTAMINATED ng/mL [facility] Urine 11/14/2024 1:05 PM EDT 11/14/2024 2:11 PM EDT Cornelio uDnham MD URINE ORDERABLES Final Resu lt Performing Organization Address [facility] Phone Number [address] [address] * (ABNORMAL) Comprehensive metabolic panel (11/14/2024 1:05 PM EDT) Only the most recent of2 resultswithin the time period is included. SODIUM 139 136 - 145 mmol/L [facility] POTASSIUM 4.3 3.4 - 5.1 mmol/L [facility] CHLORIDE 104 98 - 107 mmol/L [facility] CO2 20(L) 22 - 31 mmol/L [facility] BUN 33(H) 6 - 23 mg/dL [facility] CREATININE 1.25(H) 0.50 - 1.20 mg/dL [facility] GLUCOSE 122(H) 70 - 100 mg/dL [facility] ALBUMIN 4.3 3.5 - 5.2 g/dL [facility] TOTAL PROTEIN 7.4 6.4 - 8.3 g/dL [facility] CALCIUM 9.1 8.8 - 10.7 mg/dL [facility] ALKALINE PHOSPHATASE 114 35 - 130 U/L [facility] TOTAL BILIRUBIN 0.3 0.0 - 1.0 mg/dL [facility] AST 24 10 - 50 U/L [facility] ALT 21 10 - 50 U/L [facility] GLOBULIN 3.1 2.2 - 4.2 g/dL [facility] EGFR 55(L) >59 mL/min/1. 73m2 [facility] Comment:Estimated glomerular filtration rate calculated using the CKD-EPI refit equation. ANION GAP 15 7 - 17 mmol/L [facility] 11/14/2024 1:05 PM EDT 11/14/2024 2:11 PM EDT Cornelio Dunham MD LAB BLOOD ORDERABLES Final Result Performing Organization Address [facility] de Phone Number [address] [address] * Microalbumin/creatinine ratio, random urine (11/14/2024 1:05 PM EDT) UR CREATININE G HARSHAD WAS NOTIFIED, SAMPLE CONTAMINATED mg/dL [facility] MALB/CRE G HARSHAD WAS NOTIFIED, SAMPLE CONTAMINATED 0.0 - 30.0 mg/Alb/g Cre [facility] URINE MICROALBUMIN G HARSHAD WAS NOTIFIED, SAMPLE CONTAMINATED 0.0 - 2.0 mg/dL [facility] Urine 11/14/2024 1:05 PM EDT 11/14/2024 2:11 PM EDT Cornelio Dunham MD URINE ORDERABLES Final Resu lt Performing Organization Address [facility] de Phone Number [address] [address] * Toxicology screen, urine (11/14/2024 1:05 PM EDT) URINE AMPHETAMINES G HARSHAD WAS NOTIFIED, SAMPLE CONTAMINATED Negative [facility] URINE BENZODIAZEPINE Tori DUNHAM WAS NOTIFIED, SAMPLE CONTAMINATED Negative [facility] URINE COCAINE METAB Tori DUNHAM WAS NOTIFIED, SAMPLE CONTAMINATED Negative [facility] URINE OPIATES G HARSHAD WAS NOTIFIED, SAMPLE CONTAMINATED Negative [facility] URINE OXYCODONE G HARSHAD WAS NOTIFIED, SAMPLE CONTAMINATED Negative [facility] Fentanyl, urine G HARSHAD WAS NOTIFIED, SAMPLE CONTAMINATED Negative [facility] CREAT Tori DUNHAM WAS NOTIFIED, SAMPLE CONTAMINATED 20.0 - 300.0 mg/dL [facility] Urine 11/14/2024 1:05 PM EDT 11/14/2024 2:11 PM EDT Cornelio Dunham MD URINE ORDERABLES Final Resu lt Performing Organization Address [facility] de Phone Number [facility] [address] [place] [address] * Ginger-Machado virus (EBV) PCR, blood (11/14/2024 1:05 PM EDT) Pathologist [facility] EBV Blood, PCR Undetected Undetected IU/mL [facility] Comment: (NOTE) Result in log IU/mL is Undetected. ADDITIONAL INFORMATION The quantification range of this assay is 35 to 100,000,000 IU/mL (1.54 log to 8.00 log IU/mL). Testing was performed using the dillon EBV test ([employer] Blood 11/14/2024 1:05 PM EDT 11/14/2024 2:13 PM EDT Cornelio Dunham MD NON CULTURE MICROBIOLOGY Fi nal Result Performing Organization Address [facility] de Phone Number [facility] [address] [place] [address] * Cytomegalovirus (CMV) PCR, blood (11/14/2024 1:05 PM EDT) Only the most recent of2 resultswithin the time period is included. Pathologist [facility] CMV VIRAL LOAD TARGET NOT DETECTED TARGET NOT DETECTED IU/mL [facility] CMV Viral Load Log 10 TARGET NOT DETECTED TARGET NOT DETECTED log IU/mL [facility] Comment: NO VIRAL DNA DETECTED ASSAY RANGE: 35-10,000,000 IU/mL (1.54 log - 7 log IU/mL) Blood 11/14/2024 1:05 PM EDT 11/14/2024 5:34 PM EDT Renetta Rosenbaum CNP NON CULTURE MICROBIOLOG Y Final Result Performing Organization Address [facility] Co de Phone Number [facility] [address] [place] [phone] * 25-OH vitamin D (11/14/2024 1:05 PM EDT) 25 [place] VIT D (TOTAL) 21 20 - 50 ng/mL [facility] 11/14/2024 1:05 PM EDT 11/14/2024 2:11 PM EDT Cornelio Dunham MD LAB BLOOD ORDERABLES Final Result Performing Organization Address [facility] de Phone Number [address] [address] * (ABNORMAL) Urinalysis (11/14/2024 1:05 PM EDT) COLOR LT YELLOW(A) Yellow [facility] CLARITY Clear Clear [facility] GLUCOSE Negative Negative [facility] BILI Negative Negative [facility] KETONES Negative Negative [facility] SPECIFIC GRAVITY 1.018 1.003 - 1.035 [facility] BLOOD Negative Negative [facility] PH 5.5 4.5 - 8.0 [facility] Protein-UA Negative Negative [facility] UROBILINOGEN Negative Negative [facility] NICAL [facility] NITRITE Negative Negative [facility] Leukocyte esterase, ur Negative Negative [facility] Urine 11/14/2024 1:05 PM EDT 11/14/2024 2:11 PM EDT Cornelio Dunham MD URINE ORDERABLES Final Resu lt [facility] [address] [place] [address] * (ABNORMAL) CBC and differential (11/14/2024 1:05 PM EDT) Only the most recent of2 resultswithin the time period is included. WBC 9.78 4.00 - 11.00 K/uL [facility] RBC 4.26 4.00 - 5.20 M/uL [facility] HGB 12.1 12.0 - 16.0 g/dL [facility] HCT 38.1 36.0 - 46.0 % [facility] PLT 260 150 - 450 K/uL [facility] MCV 89.4 80.0 - 100.0 fL [facility] MCH 28.4 27.0 - 31.0 pg [facility] MCHC 31.8(L) 32.0 - 36.0 g/dL [facility] RDW 13.0 11.5 - 14.5 % [facility] MPV 9.8 8.4 - 12.0 fL [facility] NRBC 0.00 0.00 /100 WBCs [facility] ABSOLUTE NRBC 0.00 0.00 K/uL [facility] CL INICAL [facility] DIFF METHOD Auto [facility] ICAL [facility] NEUTS 89.5(H) 48.0 - 76.0 % [facility] LYMPHS 3.7(L) 18.0 - 41.0 % [facility] MONOS 5.1 4.0 - 11.0 % [facility] EOS 0.2 0.0 - 5.0 % [facility] BASOS 0.4 0.0 - 1.5 % [facility] % IMMATURE GRANS 1.1(H) 0.0 - 0.9 % [facility] ABSOLUTE NEUTS 8.75(H) 1.92 - 7.60 K/uL [facility] Comment:1.21-5.39 cells/KL i s the reference range for individuals with the Oconnell null phenotype ABSOLUTE LYMPHS 0.36(L) 0.72 - 4.10 K/uL [facility] ABSOLUTE MONOS 0.50 0.16 - 1.10 K/uL [facility] ABSOLUTE EOS 0.02 0.00 - 0.50 K/uL [facility] ABSOLUTE BASOS 0.04 0.00 - 0.15 K/uL [facility] ABS IMMATURE GRANS 0.11(H) 0.00 - 0.09 K/uL [facility] ABSOLUTE NEUTROPHIL COUNT 8.75(H) 1.92 - 7.60 K/uL [facility] Comment: Automated cell count. Manual ANC may differ if performed. 1.21-5.39 cells/KL is the reference range for individuals with the Oconnell null phenotype Blood 11/14/2024 1:05 PM EDT 11/14/2024 2:11 PM EDT us Cornelio Dunham MD LAB BLOOD ORDERABLES Final Result Performing Organization Address [facility] Co de Phone Number [facility] [address] [place] [phone] * (ABNORMAL) Parathyroid hormone (PTH) (11/14/2024 1:05 PM EDT) PARATHYROID HORMONE 145(H) 15 - 65 pg/mL [facility] 11/14/2024 1:05 PM EDT 11/14/2024 2:11 PM EDT Result Bandar Dunham MD LAB BLOOD ORDERABLES Final Result Performing Organization Address [facility] Co de Phone Number [facility] [address] [place] [phone] * (ABNORMAL) NT-proBNP (11/14/2024 1:05 PM EDT) Only the most recent of2 resultswithin the time period is included. NT-PROBNP 1,000(H) <450 pg/mL [facility] Comment: 11/14/2024 1:05 PM EDT 11/14/2024 2:11 PM EDT Result Bandar Dunham MD LAB BLOOD ORDERABLES Final Result Performing Organization Address [facility] Co de Phone Number [facility] [address] [place] [phone] * Magnesium (11/14/2024 1:05 PM EDT) Only the most recent of2 resultswithin the time period is included. Pathologist [facility] MAGNESIUM 1.7 1.7 - 2.6 mg/dL [facility] 11/14/2024 1:05 PM EDT 11/14/2024 2:11 PM EDT Cornelio Dunham MD LAB BLOOD ORDERABLES Final Result Performing Organization Address [facility] de Phone Number [address] [address] * Hemoglobin A1c (11/14/2024 1:05 PM EDT) [facility] HEMOGLOBIN A1C 4.9 4.2 - 5.6 % [facility] Comment: HbA1c levels 5.7-6.4% represent [...] BLOOD ORDERABLES Final Result Performing Organization Address [facility] de Phone Number [address] [address] * (ABNORMAL) Lipid panel (11/14/2024 1:05 PM EDT) [facility] CHOLESTEROL 181 <200 mg/dL [facility] TRIGLYCERIDES 99 35 - 150 mg/dL [facility] HDL 89(H) 40 - 80 mg/dL [facility] CALCULATED LDL 72 50 - 129 mg/dL [facility] VLDL 20 <31 mg/dL [facility] CARDIAC RISK RATIO 2.0 0.0 - 4.0 [facility] 11/14/2024 1:05 PM EDT 11/14/2024 2:11 PM EDT us Cornelio Dunham MD LAB BLOOD ORDERABLES Final Result [facility] [address] [place] [phone] * TTE COMPREHENSIVE (11/14/2024 11:37 AM EDT) [...] 24 mm/m2 Anatomical Region Laterality Modality Heart [facility] Narrative 11/14/2024 2:09 PM EDT Left Ventricle [...] 05/06/2024, there are no important changes. Renetta Huerta Robi [employer] MECHANIC CV ECHO ORDERABLES Nisha l Result * ECG 12-LEAD (11/14/2024 10:17 AM EDT) Only the most recent of2 resultswithin the time period is included. Ventricular Rate EKG/MIN 88 BPM [facility] Atrial Rate 88 BPM [facility] WY Interval 146 ms MUSE_BWH QRS Duration 72 ms MUSE_BWH QT Interval 368 ms MUSE_BWH QTC Interval 445 ms MUSE_BWH P [place] 60 degrees MUSE_BWH R Wave [place] -3 degrees MUSE_BWH T Wave [place] 26 degrees MUSE_BWH 11/14/2024 10:1 7 AM EDT Narrative MUSE_BWH - 11/18/2024 9:23 AM EDT Normal sinus rhythm Possible Inferior myocardial infarction (cited on or before 14-Feb-2023) Abnormal ECG When compared with ECG of 22-Aug-2024 08:42, No significant change was found Cornelio Dunham MD ECG ORDERABLES Final Resul t MUSE_BWH * Tissue Typing - Recipient/Donor Information and Results (11/14/2024) Result - External See Scanned Results 11/14/2024 Cornelio Dunham MD LAB BLOOD ORDERABLES Edited Result - Final * Basic metabolic panel (08/29/2024 9:43 AM EDT) Potassium - External 3.9 BUN - External 26 Creatinine - External 1.21 Anion Gap - External 58 08/29/2024 9:43 AM EDT us Historical Provider LAB BLOOD ORDERABLES Nisha l Result * Hepatitis C antibody, qualitative (03/16/2024 6:10 AM EST) HCV Nonreactive Nonreactive [facility] Blood 03/16/2024 6:10 AM EST 03/16/2024 7:06 AM EST us Ralf Galicia MD, PhD LAB BLOOD ORDERABLES Final Resu lt [facility] [address] [place] [address], [place] [address] * BI MAMMOGRAM SCREENING WITH TOMOSYNTHESIS WITH CAD (BILATERAL) (11/03/2022 2:11 PM EDT) Anatomical Region Laterality Modality Breast Left, Breast Right, Breast Bilateral Bila teral Mammography 11/04/2022 2:14 PM EDT Impressions 11/04/2022 2:16 PM EDT No mammographic evidence of malignancy in either breast. Annual screening mammography is recommended. BI-RADS 1 NEGATIVE The patient will be notified of the results and recommendations. Narrative 11/04/2022 2:16 PM EDT BI MAMMOGRAM SCREENING WITH TOMOSYNTHESIS WITH CAD (BILATERAL) Additional patient information: Screening. COMPARISON: This is a baseline examination. Breast composition: The breast tissue is heterogeneously dense which may obscure small masses. FINDINGS: Right breast implant is present, which lowers the sensitivity of mammography. A cardiac device overlies and partially obscures the left axillary region. No abnormal masses, suspicious calcifications, or other significant findings are identified mammographically in either breast. Procedure Note Cyril Dinh MD - 11/04/2022 BI MAMMOGRAM SCREENING WITH TOMOSYNTHESIS WITH CAD (BILATERAL) Additional patient information: Screening. COMPARISON: This is a baseline examination. Breast composition: The breast tissue is heterogeneously dense which mayobscure small masses. FINDINGS: Right breast implant is present, which lowers the sensitivity ofmammography. A cardiac device overlies and partially obscures the leftaxillary region. No abnormal masses, suspicious calcifications, or other significantfindings are identified mammographically in either breast. IMPRESSION: No mammographic evidence of malignancy in either breast. Annual screening mammography is recommended. BI-RADS 1 NEGATIVE The patient will be notified of the results and recommendations. 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/31/[address] [place] [address] [place] [address] ACO [facility] [place] [address] [place] [address] ACO [facility] [place] [address] [place] [address] ACO [facility] Advance Directives For more information, please contact: [phone] (9AM - 5PM [facility], Monday-Monday) Documents on File Type Date Recorded Patient Patient Transition Specialist Expl anation Healthcare Proxy 06/12/2023 11:32 AM Serious Illness Care 02/10/2023 2:09 PM I CD interrogation * Full Code (Latest Code Status on File) Date Activated Date Inactivated Comments 05/06/2024 7:55 PM Question Answer Comments Code Status Confirmed With: Patient * Full Code Date Activated Date Inactivated Comments 05/06/2024 9:51 AM 05/06/2024 7:55 PM Question Answer Comments Code Status Confirmed With: Patient * Full Code Date Activated Date Inactivated Comments 04/10/2024 7:19 PM 05/06/2024 9:51 AM Question Answer Comments Code Status Confirmed With: Patient * Full Code Date Activated Date Inactivated Comments 03/12/2024 5:37 AM 04/10/2024 7:19 PM Question Answer Comments Code Status Confirmed With: Other (specify below ) Code Discussion Comments: chart review * Full Code Date Activated Date Inactivated Comments 03/08/2024 6:14 PM 03/12/2024 5:37 AM Question Answer Comments Code Status Confirmed With: Patient Healthcare Agents on File Name Relationship Healthcare Agent [facility] Communication Nicole Ford Daughter .Primary Health Care Agent (Proxy form on file) Pilar Daniels Sister Alternate Health care Agent (Proxy form on file) Care Teams Electrical Mechanic Relationship Specialty Start Date End Date Petty Almeida PA [address] [place] [address] [address] PCP - General Physician Decision Analyst 07/29/24 Deniz Manrique MD [address] [place] [address] [place] [address] [email or web address] u Advanced Heart Failure and Transplant Cardiology 08/31/22 Deniz Kahn MD [address] [place] [address] Consulting Provider Cardiology 08/31/22 Luca Alfaro MD [address] [place] [address] [email or web address] Pediatric Cardiology 08/31/22 Deniz Osullivan MD [address] [place] [address] GINNY@[email or web address].[place].[facility] Pediatric Cardiology 02/05/24 Additional Source Comments The information contained in this document represents components of the legal health record. It is not the complete legal health record.[facility]
--- OUTSIDE RECORDS SUMMARY | 2024-11-18 17:29 | XMS_ITS | Encounter Summary ---
Author Organization [facility] Address [address] [facility] [address] [place] [address] Phone Care Team Providers Care Student Services Counselor Name Role Phone Andrez Manrique MD Unavailable [phone] Andrez Kahn MD Unavailable [phone] Luca Alfaro MD Unavailable America Farmer TRANSMISSION AND PROTECTION ENGINEER Primary Care Provider Andrez Osullivan MD Unavailable [phone] Petty Almeida PA Primary Care Provide r Encounter Details Date Type Department Care Team (Late st Contact Info) Description 11/04/2023 Procedure Pass [facility] Periop [address] [place] [address] Social History Tobacco Use Types Packs/Day Years [...] Health/Osteoporosis Ctr. and Bone Density Unit 221 [place] [address] Renetta Rosenbaum, COVERING MACHINE TENDER 75 [place] [address] [email or web address] 12/09/2024 8:00 AM EDT Office Visit [facility] Cardiac Transplant [address] [place] [address] Cornelio Dunham MD [address] [place] [address] [place] [address] [email or web address] 12/09/2024 9:00 AM EDT Office Visit [facility] Cardiac Transplant [address] [place] [address] Unknown, MD Natalie 01/27/2025 4:40 PM EST Office Visit [facility] Medical Specialties 45 [facility]2-2 [place] [address] Jose Hidalgo MD, MPH 75 [facility] [place] [address] [email or web address] documented as of this encounter Visit Diagnoses [...] documented as of this encounter Care Teams Student Services Counselor Relationship Specialty Start Date End Date America Farmer NP [address] [place] [address] [email or web address] Pharmaceuticals PCP - General Nurse Practitioner 06/06/23 07/28/24 Petty Almeida PA [address] [place] [address] [facility] [place] [address] PCP - General Physician Life Sciences Teacher 07/29/24 Andrez Manrique MD [address] [place] [address] [email or web address]. du Advanced Heart Failure and Transplant Cardiology 08/31/22 Andrez Kahn MD [address] [place] [address] [email or web address] Consulting Provider Cardiology 08/31/22 Luca Alfaro MD [address] [place] [address] [email or web address] Pediatric Cardiology 08/31/22 Andrez Osullivan MD [address] [place] [address] GINNY@[email or web address].[place]. [facility] Pediatric Cardiology 02/05/24 documented as of this encounter Additional Source Comments The information contained in this document represents components of the legal health record. It is not the complete legal health record.[facility]
--- OUTSIDE RECORDS SUMMARY | 2024-11-18 17:29 | XMS_ITS | Encounter Summary ---
Author Organization [facility] Address [address] [facility] [address] [place] [address] Phone Care Team Providers Care Oil Expeller Operator Name Role Phone Andrez Manrique MD Unavailable [phone] Andrez Kahn MD Unavailable Luca Alfaro MD Unavailable America Farmer BALL POINTS INSPECTOR Primary Care Provider Andrez Osullivan MD Unavailable [phone] Petty Almeida PA Primary Care Provide r Encounter Details Date Type Department Care Team (Late st Contact Info) Description 02/21/2024 Procedure Pass [facility] and Women's Radiology 75 [place] [address] Social History Tobacco Use Types Packs/Day Years [...] Health/Osteoporosis Ctr. and Bone Density Unit [address] [place] [address] Renetta Rosenbaum, FIELD RESEARCH ASSISTANT 75 [place] [address] [email or web address] [place] 12/09/2024 8:00 AM EDT Office Visit [facility] Cardiac Transplant 70 [place] [address] Cornelio Dunham MD 75 [facility] [place] [address] [email or web address] 12/09/2024 9:00 AM EDT Office Visit [facility] Cardiac Transplant 70 [place] [address] Natalie Estrada MD 01/27/2025 4:40 PM EST Office Visit [facility] 45 [facility]2-2 [place] [address] Jose Hidalgo MD, MPH 75 [place] [address] LUCERO@[facility] documented as of this encounter Visit [...] documented as of this encounter Care Teams Oil Expeller Operator Relationship Specialty Start Date End Date America Farmer NP [address] [place] [address] [email or web address] PCP - General Nurse Practitioner 06/06/23 07/28/24 Petty Almeida PA [address] [place] [address] PCP - General Physician Coremaker Experimental 07/29/24 Andrez Manrique MD [address] [place] [address] [place] [address] [email or web address]. du Advanced Heart Failure and Transplant Cardiology 08/31/22 Andrez Kahn MD [address] [place] [address] [email or web address] Consulting Provider Cardiology 08/31/22 Luca Alfaro MD [address] [place] [address] [email or web address] Pediatric Cardiology 08/31/22 Andrez Osullivan MD [address] [place] [address] GINNY@[facility].[place]. [facility] Pediatric Cardiology 02/05/24 documented as of this encounter Additional Source Comments The information contained in this document represents components of the legal health record. It is not the complete legal health record.[facility]
--- OUTSIDE RECORDS SUMMARY | 2024-11-18 17:29 | XMS_ITS | Encounter Summary ---
Author Organization [facility] Address [address] [address] [place] [address] Phone Care Team Providers Care Ocean Export Agent Name Role Phone Andrez Manrique MD Unavailable [phone] Andrez Kahn MD Unavailable [phone] Luca Alfaro MD Unavailable America Farmer AUDIO VIDEO TECH Primary Care Provider Andrez Osullivan MD Unavailable [phone] Petty Almeida PA Primary Care Provide r Encounter Details Date Type Department Care Team (Late st Contact Info) Description 02/15/2024 Procedure Pass [facility] Cross Sectional Interventional Radiology [address] [place] [address] Social History Tobacco Use Types Packs/Day Years [...] Info) Description 11/28/2024 10:20 AM EDT Appointment [facility] Skeletal Health/Osteoporosis Ctr. and Bone Density Unit 221 [place] [address] Renetta Rosenbaum, CONSUMER INSIGHT MANAGER 75 [place] [address] SPIKE@[email or web address]. [place] 12/09/2024 8:00 AM EDT Office Visit [facility] Cardiac Transplant 70 [place] [address] Cornelio Dunham MD 75 [facility] [place] [address] [email or web address] 12/09/2024 9:00 AM EDT Office Visit [facility] Cardiac Transplant 70 [place] [address] Natalie Estrada MD 01/27/2025 4:40 PM EST Office Visit [facility] [address] [address] Jose Hidalgo MD, MPH 75 [place] [address] LUCERO@[email or web address] documented [...] documented as of this encounter Care Teams Ocean Export Agent Relationship Specialty Start Date End Date America Farmer NP [address] [place] [address] [email or web address] PCP - General Nurse Practitioner 06/06/23 07/28/24 Petty Almeida PA [address] [place] [address] PCP - General Physician Librarian Special Library 07/29/24 Andrez Manrique MD [address] [place] [address] [place] [address] [email or web address]. du Advanced Heart Failure and Transplant Cardiology 08/31/22 Andrez Kahn MD [address] [place] [address] [email or web address] Consulting Provider Cardiology 08/31/22 Luca Alfaro MD [address] [place] [address] [facility] Pediatric Cardiology 08/31/22 Andrez Osullivan MD [address] [place] [address] YOJANA1@[email or web address]. [facility] Pediatric Cardiology 02/05/24 documented as of this encounter Additional Source Comments The information contained in this document represents components of the legal health record. It is not the complete legal health record.[facility]
--- OUTSIDE RECORDS SUMMARY | 2024-11-18 17:29 | XMS_ITS | Encounter Summary ---
Author Organization [facility] Address [address] [facility] [address] [place] [address] Phone Care Team Providers Care Intelligence Operations Name Role Phone Andrez Manrique MD Unavailable Andrez Kahn MD Unavailable [phone] Luca Alfaro MD Unavailable [phone] America Farmer TRAIN OPERATIONS SUPERVISOR Primary Care Provider Andrez Osullivan MD Unavailable [phone] Petty Almeida PA Primary Care Provide r Encounter Details Date Type Department Care Team (Late st Contact Info) Description 02/26/2024 Procedure Pass [facility] and Women's Radiology 70 [place] [address] Social History Tobacco Use Types Packs/Day Years [...] Ctr. and Bone Density Unit [address] [place] [address] Renetta Rosenbaum, MATERIALS HANDLER 75 [place] [address] SPIKE@[facility] [place] 12/09/2024 8:00 AM EDT Office Visit [facility] Cardiac Transplant 70 [place] [address] Cornelio Dunham MD 75 [facility] [place] [address] [email or web address] 12/09/2024 9:00 AM EDT Office Visit [facility] Cardiac Transplant 70 [place] [address] Natalie Estrada MD 01/27/2025 4:40 PM EST Office [facility] [address] [address] [place] [address] Jose Hidalgo MD, MPH 75 [place] [address] [email or web address]@[email or web address] documented as of this [...] documented as of this encounter Care Teams Intelligence Operations Relationship Specialty Start Date End Date America Farmer NP [address] [place] [address] [email or web address] PCP - General Nurse Practitioner 06/06/23 07/28/24 Petty Almeida PA [address] [place] [address] [facility] [place] [address] PCP - General Physician Hiv Counselor 07/29/24 Andrez Manrique MD [address] [place] [address] [place] [address] [email or web address]. du Advanced Heart Failure and Transplant Cardiology 08/31/22 Andrez Kahn MD [address] [place] [address] [email or web address] Consulting Provider Cardiology 08/31/22 Luca Alfaro MD [address] [place] [address] [facility] Pediatric Cardiology 08/31/22 Andrez Osullivan MD [address] [place] [address] GINNY@[facility].hegins. [facility] Pediatric Cardiology 02/05/24 documented as of this encounter Additional Source Comments The information contained in this document represents components of the legal health record. It is not the complete legal health record.[facility]
--- OUTSIDE RECORDS SUMMARY | 2024-11-18 17:30 | XMS_ITS | Encounter Summary ---
Author Organization [facility] Address [address] [facility] [address] [place] [address] Phone Care Team Providers Care Branch Chief Name Role Phone Andrez Manrique MD Unavailable [phone] Andrez Kahn MD Unavailable Luca Alfaro MD Unavailable America Farmer BEAM HOUSE INSPECTOR Primary Care Provider Andrez Osullivan MD Unavailable [phone] Petty Almeida PA Primary Care Provide r Encounter Details Date Type Department Care Team (Late st Contact Info) Description 07/12/2023 Procedure Pass [facility] Cardiac Warehouse Clerk [address] [place] [address] Social History Tobacco Use Types Packs/Day Years [...] Info) Description 11/28/2024 10:20 AM EDT Appointment [facility] Skeletal Health/Osteoporosis Ctr. and Bone Density Unit [address] [place] [address] Renetta Rosenbaum, BUGGY LADLE TENDER 75 [place] [address] [email or web address] 12/09/2024 8:00 AM EDT Office Visit [facility] Cardiac Transplant 70 [place] [address] Cornelio Dunham MD [address] [place] [address] [place] [address] long@[facility] 12/09/2024 9:00 AM EDT Office Visit [facility] Cardiac Transplant 70 [place] [address] Unknown, MD Natalie 01/27/2025 4:40 PM EST Office Visit [facility] Medical Specialties 45 [facility]2 [place] [address] Jose Hidalgo MD, MPH 75 [facility] [place] [address] LUCERO@[email or web address] documented as of this encounter [...] documented as of this encounter Care Teams Branch Chief Relationship Specialty Start Date End Date America Farmer NP 575 [place] [address] [email or web address] PCP - General Nurse Practitioner 06/06/23 07/28/24 Petty Almeida PA [address] [place] [address] PCP - General Physician Development Chemist 07/29/24 Andrez Manrique MD [address] [place] [address] [place] [address] [email or web address] du Advanced Heart Failure and Transplant Cardiology 08/31/22 Andrez Kahn MD [address] [place] [address] [email or web address] Consulting Provider Cardiology 08/31/22 Luca Alfaro MD [address] [place] [address] [email or web address] Pediatric Cardiology 08/31/22 Andrez Osullivan MD [address] [place] [address] [email or web address].[place]berta. [facility] Pediatric Cardiology 02/05/24 documented as of this encounter Additional Source Comments The information contained in this document represents components of the legal health record. It is not the complete legal health record.[facility]
--- OUTSIDE RECORDS SUMMARY | 2024-11-18 17:30 | XMS_ITS | Encounter Summary ---
Author Organization [facility] Address [address] [facility] [address] [place] [address] Phone Care Team Providers Care Charcoal Burner Beehive Kiln Name Role Phone Andrez Manrique MD Unavailable [phone] Andrez Kahn MD Unavailable Luca Alfaro MD Unavailable America Farmer RESOLUTION REP Primary Care Provider Andrez Osullivan MD Unavailable Petty Almeida PA Primary Care Provide r Encounter Details Date Type Department Care Team (Late st Contact Info) Description 08/04/2023 Procedure Pass [facility] Endoscopy Department [address] [place] [address] Social History Tobacco Use Types Packs/Day Years [...] Info) Description 11/28/2024 10:20 AM EDT Appointment [facility] Skeletal Health/Osteoporosis Ctr. and Bone Density Unit 221 [place] [address] Renetta Rosenbaum, SCIENTIFIC ILLUSTRATOR 75 [place] [address] [email or web address]. [email or web address] 12/09/2024 8:00 AM EDT Office Visit [facility] Cardiac Transplant 70 [place] [address] Cornelio Dunham MD [address] [place] [address] [place] [address] [email or web address] 12/09/2024 9:00 AM EDT Office Visit [facility] Cardiac Transplant 70 [place] [address] Unknown, MD Natalie 01/27/2025 4:40 PM EST Office Visit [facility] Medical Specialties 45 [facility]2-2 [place] [address] Jose Hidalgo MD, MPH 75 [facility] [address] LUCERO@[email or web address] documented as of this [...] documented as of this encounter Care Teams Charcoal Burner [employer] Relationship Specialty Start Date End Date America Farmer NP [address] [place] [address] [email or web address] PCP - General Nurse Practitioner 06/06/23 07/28/24 Petty Almeida PA [address] [place] [address] PCP - General Physician Section Hand Helper 07/29/24 Andrez Manrique MD [address] [place] [address] [place] [address] [email or web address]. du Advanced Heart Failure and Transplant Cardiology 08/31/22 Andrez Kahn MD [address] [place] [address] mnsph[facility] Consulting Provider Cardiology 08/31/22 Luca Alfaro MD [address] [place] [address] [facility] Pediatric Cardiology 08/31/22 Andrez Osullivan MD [address] [place] [address] [email or web address] Pediatric Cardiology 02/05/24 documented as of this encounter Additional Source Comments The information contained in this document represents components of the legal health record. It is not the complete legal health record.[facility]
--- OUTSIDE RECORDS SUMMARY | 2024-11-18 17:30 | XMS_ITS | Encounter Summary ---
Author Organization [facility] Address 399 [facility] [address] [place] [address] Phone Care Team Providers Care Transport Aircrewman Name Role Phone Andrez Manrique MD Unavailable [phone] Andrez Kahn MD Unavailable Luca Alfaro MD Unavailable [phone] America Farmer DRIVER'S LICENSE EXAMINER Primary Care Provider Andrez Osullivan MD Unavailable [phone] Petty Almeida PA Primary Care Provide r Encounter Details Date Type Department Care Team (Late st Contact Info) Description 03/01/2024 Procedure Pass [facility] and Women's Radiology 70 [place] [address] Social History Tobacco Use Types Packs/Day Years [...] Description 11/28/2024 10:20 AM EDT Appointment [facility] Skeletal Health/Osteoporosis Ctr. and Bone Density Unit 221 [place] [address] Renetta Rosenbaum, AUTO BODY CUSTOMIZER 75 [place] [address] SPIKE@[facility] BRIGETTE 12/09/2024 8:00 AM EDT Office Visit [facility] Cardiac Transplant 70 [place] [address] Cornelio Dunham MD 75 [facility] [place] [address] [email or web address] 12/09/2024 9:00 AM EDT Office Visit [facility] Cardiac Transplant 70 [place] [address] Natalie Estrada MD 01/27/2025 4:40 PM EST Office Visit [facility] [address] [address] [place] [address] Jose Hidalgo MD, MPH 75 [place] [address] [email or web address]@[email or web address] documented as of this encounter [...] documented as of this encounter Care Teams Transport Aircrewman Relationship Specialty Start Date End Date America Farmer NP [address] [place] [address] [email or web address] PCP - General Nurse Practitioner 06/06/23 07/28/24 Petty Almeida PA [address] [place] [address] [facility] [place] [address] PCP - General Physician Clinical Research Nurse 07/29/24 Andrez Manrique MD [address] [place] [address] [place] [address] [email or web address]. du Advanced Heart Failure and Transplant Cardiology 08/31/22 Andrez Kahn MD [address] [place] [address] [email or web address] Consulting Provider Cardiology 08/31/22 Luca Alfaro MD [address] [place] [address] [email or web address] Pediatric Cardiology 08/31/22 Andrez Osullivan MD [address] [place] [address] GINNY@[facility].norman. [facility] Pediatric Cardiology 02/05/24 documented as of this encounter Additional Source Comments The information contained in this document represents components of the legal health record. It is not the complete legal health record.[facility]
--- OUTSIDE RECORDS SUMMARY | 2024-11-18 17:30 | XMS_ITS | Encounter Summary ---
Author Organization [facility] Address 399 [facility] [address] [place] [address] Phone Care Team Providers Care Machine Filler Shredder Name Role Phone Loly Brush MD Primary Care Provider [phone] Andrez Manrique MD Unavailable [phone] Andrez Kahn MD Unavailable Luca Alfaro MD Unavailable [phone] America Farmer NP Primary Care Provider Andrez Osullivan MD Unavailable [phone] Petty Almeida Primary Care Provide r Encounter Details Date Type Department Care Team (Late st Contact Info) Description 11/26/2021 Procedure Pass [facility] Echocardiography 70 [place] [address] Social History Tobacco Use Types Packs/Day Years Used Date Smoking Tobacco: Never Smokeless Tobacco: Never Alcohol Use Standard Drinks/Week Comments Not Currently 0 (1 standard drink = 0.6 oz pur e alcohol) Comments No Sex and Gender Information Value [...] Health/Osteoporosis Ctr. and Bone Density Unit 221 [place] [address] Renetta Rosenbaum, MARVIN 75 [place] [address] [email or web address]. BRIGETTE 12/09/2024 8:00 AM EDT Office Visit [facility] Cardiac Transplant 70 [place] [address] Cornelio Dunham MD 75 [facility] [place] [address] [email or web address] 12/09/2024 9:00 AM EDT Office Visit [facility] Cardiac Transplant 70 [place] [address] Unknown, Unknown, 01/27/2025 4:40 PM EST Office Visit [facility] Medical Specialties [address] [address] Jose Hidalgo MD, MPH 75 [place] [address] LUCERO@[facility] documented as of this [...] Noted Time PHQ-2 Depression Total Score: 0 09/25/19 21 1:52 PM EDT documented as of this encounter Care Teams Machine Filler Shredder Relationship Specialty Start Date End Date Loly Brush MD [address] [place] [address] PCP - General 07/31/14 06/05/23 America Farmer NP [address] [place] [address] [email or web address] PCP - General Nurse Practitioner 06/06/23 07/28/24 Petty Almeida PA [address] [place] [address] PCP - General Physician Government Relations Director 07/29/24 Andrez Manrique MD [address] [place] [address] [email or web address]. du Advanced Heart Failure and Transplant Cardiology 08/31/22 Andrez Kahn MD [address] [place] [address] [facility] [email or web address] Consulting Provider Cardiology 08/31/22 Luca Alfaro MD [address] [place] [address] [email or web address] Pediatric Cardiology 08/31/22 Andrez Osullivan MD [address] [place] [address] [email or web address] Pediatric Cardiology 02/05/24 documented as of this encounter Additional Source Comments The information contained in this document represents components of the legal health record. It is not the complete legal health record.[facility]
--- OUTSIDE RECORDS SUMMARY | 2024-11-18 17:30 | XMS_ITS | Encounter Summary ---
Author Organization [facility] Address 399 [facility] [address] [place] [address] Phone Care Team Providers Care Floorperson Name Role Phone Andrez Manrique MD Unavailable Andrez Kahn MD Unavailable Luca Alfaro MD Unavailable [phone] America Farmer KENNEL KEEPER Primary Care Provider Andrez Osullivan MD Unavailable [phone] Petty Almeida PA Primary Care Provide r Encounter Details Date Type Department Care Team (Late st Contact Info) Description 09/25/2023 Procedure Pass [facility] Electrophysiology Lab 75 [place], [place] [id number] Social History Tobacco Use Types Packs/Day Years [...] Description 11/28/2024 10:20 AM EDT Appointment [facility] Skeletal Health/Osteoporosis Ctr. and Bone Density Unit 221 [place] [address] Renetta Rosenbaum, HOME HEALTH TRAVEL OT 75 [place] [address] [email or web address]. BRIGETTE 12/09/2024 8:00 AM EDT Office Visit [facility] Cardiac Transplant 70 [place] [address] Cornelio Dunham MD [address] [place] [address] [place] [address] long@[facility] 12/09/2024 9:00 AM EDT Office Visit [facility] Cardiac Transplant 70 [place] [address] Natalie, MD Natalie 01/27/2025 4:40 PM EST Office Visit [facility] Medical Specialties 45 [facility] [place] [address] Jose Hidalgo MD, MPH 75 [place] [address] LUCERO@[facility] documented as of this encounter Visit Diagnoses [...] documented as of this encounter Care Teams Floorperson Relationship Specialty Start Date End Date America Farmer NP 575 [place] [address] [email or web address] hospital[facility] PCP - General Nurse Practitioner 06/06/23 07/28/24 Petty Almeida PA [address] [place] [address] PCP - General Physician Senior Investment Manager 07/29/24 Andrez Manrique MD [address] [place] [address] [place] [address] [email or web address]. du Advanced Heart Failure and Transplant Cardiology 08/31/22 Andrez Kahn MD [address] [place] [address] [facility] Consulting Provider Cardiology 08/31/22 Luca Alfaro MD [address] [place] [address] [facility] Pediatric Cardiology 08/31/22 Andrez Osullivan MD [address] [place] [address] [email or web address] Pediatric Cardiology 02/05/24 documented as of this encounter Additional Source Comments The information contained in this document represents components of the legal health record. It is not the complete legal health record.[facility]
--- OUTSIDE RECORDS SUMMARY | 2024-11-18 17:30 | XMS_ITS | Encounter Summary ---
Author Organization [facility] Address 399 [facility] [address] [place] [address] Phone Care Team Providers Care Shop Laborer Name Role Phone Andrez Manrique MD Unavailable Andrez Kahn MD Unavailable [phone] Luca Alfaro MD Unavailable [phone] America Farmer BALLET PROFESSOR Primary Care Provider Andrez Osullivan MD Unavailable [phone] Petty Almeida PA Primary Care Provide r Encounter Details Date Type Department Care Team (Late st Contact Info) Description 07/10/2023 Procedure Pass [facility] and Women's Radiology 70 [place] [address] Social History Tobacco Use Types Packs/Day Years [...] Info) Description 11/28/2024 10:20 AM EDT Appointment [facility] Skeletal Health/Osteoporosis Ctr. and Bone Density Unit 221 [place] [address] Renetta Rosenbaum, EDGE GLUER 75 [place] [address] SPIKE@[email or web address].[email or web address]. BRIGETTE 12/09/2024 8:00 AM EDT Office Visit [facility] Cardiac Transplant 70 [place] [address] Cornelio Dunham MD 75 [facility] [place] [address] [email or web address] 12/09/2024 9:00 AM EDT Office Visit [facility] Cardiac Transplant 70 [place] [address] Natalie, Natalie, 01/27/2025 4:40 PM EST Office Visit [place] [facility] Medical Specialties 45 [facility]2 [place] [address] Jose Hidalgo MD, MPH 75 [facility] [place] [address] LUCERO@[email or web address] documented as of this encounter Visit [...] documented as of this encounter Care Teams Shop Laborer Relationship Specialty Start Date End Date America Farmer NP 575 [place] [address] [email or web address].[employer] PCP - General Nurse Practitioner 06/06/23 07/28/24 Petty Almeida PA [address] [place] [address] PCP - General Physician Management Consultant 07/29/24 Andrez Manrique MD [address] [place] [address] [place] [address] [email or web address]. du Advanced Heart Failure and Transplant Cardiology 08/31/22 Andrez Kahn MD [address] [place] [address] [email or web address] Consulting Provider Cardiology 08/31/22 Luca Alfaro MD [address] [place] [address] [facility] Pediatric Cardiology 08/31/22 Andrez Osullivan MD [address] [place] [address] [email or web address]@[facility] Pediatric Cardiology 02/05/24 documented as of this encounter Additional Source Comments The information contained in this document represents components of the legal health record. It is not the complete legal health record.[facility]
--- OUTSIDE RECORDS SUMMARY | 2024-11-18 17:31 | XMS_ITS | Encounter Summary ---
Author Organization [facility] Address 399 [facility] [address] [place] [address] Phone Care Team Providers Care Petroleum Supply Specialist Name Role Phone Andrez Manrique MD Unavailable [phone] Andrez Kahn MD Unavailable [phone] Luca Alfaro MD Unavailable America Farmer SOFTWARE CONFIGURATION SPECIALIST Primary Care Provider Andrez Osullivan MD Unavailable [phone] Petty Almeida PA Primary Care Provide r Encounter Details Date Type Department Care Team (Late st Contact Info) Description 10/25/2023 Procedure Pass [facility] Cardiac Servomechanism Assembler [address] [place] [address] Social History Tobacco Use Types Packs/Day Years [...] Info) Description 11/28/2024 10:20 AM EDT Appointment [facility] Skeletal Health/Osteoporosis Ctr. and Bone Density Unit 221 [place] [address] Renetta Rosenbaum, DETECTIVE INVESTIGATOR 75 [place] [address] SPIKE@[facility].[email or web address]. BRIGETTE 12/09/2024 8:00 AM EDT Office Visit [facility] Cardiac Transplant 70 [place] [address] Cornelio Dunham MD [address] [place] [address] [place] [address] [email or web address] 12/09/2024 9:00 AM EDT Office Visit [facility] Cardiac Transplant 70 [place] [address] Unknown, MD Natalie 01/27/2025 4:40 PM EST Office Visit [facility] Medical Specialties 45 [facility] [place] [address] Jose Hidalgo MD, MPH 75 [facility] [place] [address] LUCERO@[facility] documented as of this encounter [...] documented as of this encounter Care Teams Petroleum Supply Specialist Relationship Specialty Start Date End Date America Farmer NP 575 [place] [address] juliana@[email or web address] [email or web address] PCP - General Nurse Practitioner 06/06/23 07/28/24 Petty Almeida PA [address] [place] [address] [address] PCP - General Physician Resist Coater Developer 07/29/24 Andrez Manrique MD [address] [place] [address] [email or web address]. du Advanced Heart Failure and Transplant Cardiology 08/31/22 Andrez Kahn MD [address] [place] [address] [facility] Consulting Provider Cardiology 08/31/22 Luca Alfaro MD [address] [place] [address] [facility] Pediatric Cardiology 08/31/22 Andrez Osullivan MD [address] [place] [address] GINNY@[facility].[place]. [facility] Pediatric Cardiology 02/05/24 documented as of this encounter Additional Source Comments The information contained in this document represents components of the legal health record. It is not the complete legal health record.[facility]
--- OUTSIDE RECORDS SUMMARY | 2024-11-18 17:31 | XMS_ITS | Encounter Summary ---
Author Organization [facility] Address 399 [facility] [address] [place] [address] Phone Care Team Providers Care Supervisory It Specialist Name Role Phone Loly Brush MD Primary Care Provider [phone] Andrez Manrique MD Unavailable Andrez Kahn MD Unavailable [phone] Luca Alfaro MD Unavailable [phone] America Farmer NP Primary Care Provider Andrez Osullivan MD Unavailable [phone] Petty Almeida Primary Care Provide r Encounter Details Date Type Department Care Team (Late st Contact Info) Description 10/25/[address] [facility] Echocardiography 70 [place] [address] Social History Tobacco Use Types Packs/Day Years [...] Date of Assessment Author No Risk Indicated 10/25/2022 8:00 PM EDT Bhanu Encarnacion RN * [place] Suicide Severity Rating Scale (Screener/Recent Self-Report) Question Answer Date of Assessment Author 1. Wish to be (Past 1 Month) No 023 8:00 PM EDT Melissa Encarnacion RN 2. Non-Specific Active Suici scott Thoughts (Past 1 Month) No 10/25/2022 8:00 PM EDT Melissa Encarnacion RN 6. Suicidal Behavior (Lifetime) No 8:00 PM EDT Melissa Encarnacion RN documented as of this encounter Plan of Treatment Upcoming Encounters Date Type Department Care Team (Late st Contact Info) Description 11/28/2024 10:[address] [facility] Skeletal Health/Osteoporosis Ctr. and Bone Density Unit 221 [place], [place] [phone] Renetta Rosenbaum, MARVIN [address] [place] [address] [email or web address] BRGIETTE 12/09/2024 8:00 AM EDT Office Visit [facility] Cardiac Transplant [address] [place] [address] Cornelio Dunham MD [address] [place] [address] [place] [address] long@[facility].mirtha biggs 12/09/2024 9:00 AM EDT Office Visit [facility] Cardiac Transplant 70 [place] [address] Unknown, Unknown, 01/27/2025 4:40 PM EST Office Visit [facility] Specialties 45 [facility] ASB2-2 [place] [address] Jose Hidalgo MD, MPH 75 [facility] [address] JORDANEFRA@[facility] documented as of this encounter Visit [...] documented as of this encounter Care Teams Supervisory It Specialist Relationship Specialty Start Date End Date Loly Brush MD [address] [place] [address] PCP - General 07/31/14 06/05/23 America Farmer NP [address] [place] [address] juliana@[email or web address] [email or web address] PCP - General Nurse Practitioner 06/06/23 07/28/24 Petty Almeida PA [address] [place] [address] PCP - General Physician Manager Fire 07/29/24 Andrez Manrique MD [address] [place] [address] [place] [address] [email or web address].e du Advanced Heart Failure and Transplant Cardiology 08/31/22 Andrez Kahn MD [address] [place] [address] mnsing@[facility] Consulting Provider Cardiology 08/31/22 Luca Alfaro MD [address] [place] [address] [facility] Pediatric Cardiology 08/31/22 Andrez Osullivan MD [address] [place] [address] GINNY@[facility] Pediatric Cardiology 02/05/24 documented as of this encounter Additional Source Comments The information contained in this document represents components of the legal health record. It is not the complete legal health record.[facility]
--- OUTSIDE RECORDS SUMMARY | 2024-11-18 17:31 | XMS_ITS | Encounter Summary ---
Author Organization [facility] Address 399 [facility] [address] [place] [address] Phone Care Team Providers Care Maintenance Construction Helper Name Role Phone Andrez Manrique MD Unavailable [phone] Andrez Kahn MD Unavailable Luca Alfaro MD Unavailable America Farmer CUSTOMER SOLUTIONS ARCHITECT Primary Care Provider Andrez Osullivan MD Unavailable [phone] Petty Almeida PA Primary Care Provide r Encounter Details Date Type Department Care Team (Late st Contact Info) Description 09/13/2023 Procedure Pass [facility] Angio Interventional Radiology [address] [place] [address] Social History Tobacco Use Types Packs/Day Years [...] Health/Osteoporosis Ctr. and Bone Density Unit 221 [place] [address] Renetta Rosenbaum, SNACK STEWARD 75 [place] [address] SPIKE@[email or web address] 12/09/2024 8:00 AM EDT Office Visit [facility] Cardiac Transplant 70 [place] [address] Cornelio Dunham MD [address] [place] [address] [place] [address] [email or web address] 12/09/2024 9:00 AM EDT Office Visit [facility] Cardiac Transplant 70 [place] [address] Unknown, MD Natalie 01/27/2025 4:40 PM EST Office Visit [facility] Medical Specialties 45 [facility] [place] [address] Jose Hidalgo MD, MPH 75 [facility] [place] [address] LUCERO@[facility] documented as of this encounter Visit [...] documented as of this encounter Care Teams Maintenance Construction Helper Relationship Specialty Start Date End Date America Farmer NP [address] [place] [address] juliana@[email or web address] centerPurplu PCP - General Nurse Practitioner 06/06/23 07/28/24 Petty Almeida PA [address] [place] [address] PCP - General Physician Press Puller 07/29/24 Andrez Manrique MD [address] [place] [address] [place] [address] summer@[email or web address]. du Advanced Heart Failure and Transplant Cardiology 08/31/22 Andrez Kahn MD [address] [place] [address] [facility]ns[facility] [place]@[facility] Consulting Provider Cardiology 08/31/22 Luca Alfaro MD [address] [place] [address] [facility] Pediatric Cardiology 08/31/22 Adnrez Osullivan MD [address] [place] [address] [email or web address]@[facility] [place] [place]. [facility] Pediatric Cardiology 02/05/24 documented as of this encounter Additional Source Comments The information contained in this document represents components of the legal health record. It is not the complete legal health record.[facility]
--- OUTSIDE RECORDS SUMMARY | 2024-11-18 17:31 | XMS_ITS | Encounter Summary ---
Author Organization [facility] Address 399 [facility] [address] [place] [address] Phone Care Team Providers Care Food Products Sales Representative Name Role Phone Loly Brush MD Primary Care Provider [phone] Andrez Manrique MD Unavailable [phone] Andrez Kahn MD Unavailable Luca Alfaro MD Unavailable [phone] America Farmer NP Primary Care Provider Andrez Osullivan MD Unavailable [phone] Petty Almeida Primary Care Provide r Encounter Details Date Type Department Care Team (Late st Contact Info) Description 11/02/2022 Procedure Pass [facility] Cardiac Director Employment [address] [place] [address] Social History Tobacco Use Types Packs/Day Years [...] 11/28/2024 10:20 AM EDT Appointment [facility] Skeletal Health/Osteoporosis Ctr. and Bone Density Unit 221 [place] [address] Renetta Rosenbaum, ECONOMIC RESEARCH ASSISTANT [address] [place] [address] [email or web address]. [place] 12/09/2024 8:00 AM EDT Office Visit [facility] Cardiac Transplant [address] [place] [address] Cornelio Dunham MD 75 [facility] [place] [address] [email or web address] 12/09/2024 9:00 AM EDT Office Visit [facility] Cardiac Transplant 70 [place] [address] Unknown, Natalie, 01/27/2025 4:40 PM EST Office Visit [facility] Medical Specialties 45 [facility]2 [place] [address] Jose Hidalgo MD, MPH 75 [place] [address] [email or web address] documented as of this encounter Visit [...] documented as of this encounter Care Teams Food Products Sales Representative Relationship Specialty Start Date End Date Loly Brush MD [address] [place] [address] PCP - General 07/31/14 06/05/23 America Farmer NP [address] [place] [address] [email or web address] PCP - General Nurse Practitioner 06/06/23 07/28/24 Petty Almeida PA [address] [place] [address] PCP - General Physician Bobbin Washer 07/29/24 Andrez Manrique MD [address] [place] [address] [place] [address] [email or web address] du Advanced Heart Failure and Transplant Cardiology 08/31/22 Andrez Kahn MD [address] [place] [address] Consulting Provider Cardiology 08/31/22 Luca Alfaro MD [address] [place] [address] [facility] Pediatric Cardiology 08/31/22 Andrez Osullivan MD [address] [place] [address] [email or web address] Pediatric Cardiology 02/05/24 documented as of this encounter Additional Source Comments The information contained in this document represents components of the legal health record. It is not the complete legal health record.[facility]
--- OUTSIDE RECORDS SUMMARY | 2024-11-18 17:31 | XMS_ITS | Encounter Summary ---
Author Organization [facility] Address 399 [facility] [address] [place] [address] Phone Care Team Providers Care Print Cutter Name Role Phone Andrez Manrique MD Unavailable [phone] Andrez Kahn MD Unavailable [phone] Luca Alfaro MD Unavailable America Farmer MAINTENANCE MECHANIC ELEVATORS Primary Care Provider Andrez Osullivan MD Unavailable [phone] Petty Almeida PA Primary Care Provide r Encounter Details Date Type Department Care Team (Late st Contact Info) Description 09/23/2023 Procedure Pass [facility] Periop [address] [place] [address] Social History Tobacco Use Types Packs/Day Years [...] Info) Description 11/28/2024 10:20 AM EDT Appointment [facility] Skeletal Health/Osteoporosis Ctr. and Bone Density Unit 221 [place] [address] Renetta Rosenbaum, BARTENDER MANAGER 75 [place] [address] [email or web address] 12/09/2024 8:00 AM EDT Office Visit [facility] Cardiac Transplant 70 [place] [address] Cornelio Dunham MD [address] [place] [address] [place] [address] [email or web address] 12/09/2024 9:00 AM EDT Office Visit [facility] Cardiac Transplant 70 [place] [address] Unknown, MD Natalie 01/27/2025 4:40 PM EST Office Visit [facility] Medical Specialties 45 [facility]2 [place] [address] Jose Hidalgo MD, MPH 75 [facility] [place] [address] [email or web address] documented as of this encounter Visit [...] documented as of this encounter Care Teams Print Cutter Relationship Specialty Start Date End Date America Farmer NP [address] [place] [address] [email or web address] Games PCP - General Nurse Practitioner 06/06/23 07/28/24 Ptety Almeida PA [address] [place] [address] PCP - General Physician Wireworker 07/29/24 Andrez Manrique MD [address] [place] [address] [place] [address] [email or web address]. du Advanced Heart Failure and Transplant Cardiology 08/31/22 Andrez Kahn MD [address] [place] [address] [email or web address] Consulting Provider Cardiology 08/31/22 Luca Alfaro MD [address] [place] [address] [facility] Pediatric Cardiology 08/31/22 Andrez Osullivan MD [address] [place] [address] [email or web address] Pediatric Cardiology 02/05/24 documented as of this encounter Additional Source Comments The information contained in this document represents components of the legal health record. It is not the complete legal health record.[facility]
--- OUTSIDE RECORDS SUMMARY | 2024-11-18 17:31 | XMS_ITS | Encounter Summary ---
Author Organization [facility] Address 399 [facility] [address] [place] [address] Phone Care Team Providers Care Student Affairs Dean Name Role Phone Loly Brush MD Primary Care Provider [phone] Andrez Manrique MD Unavailable [phone] Andrez Kahn MD Unavailable [phone] Luca Alfaro MD Unavailable [phone] America Farmer NP Primary Care Provider Andrez Osullivan MD Unavailable [phone] Petty Almeida Primary Care Provide r Encounter Details Date Type Department Care Team (Late st Contact Info) Description 10/31/2022 Procedure Pass [facility] and Women's [facility] Breast [facility] [address] [place] [address] 2nd [place] [address] Social History Tobacco Use Types Packs/Day Years [...] Info) Description 11/28/2024 10:20 AM EDT Appointment [facility] Skeletal Health/Osteoporosis Ctr. and Bone Density Unit 221 [place] [address] Renetta Rosenbaum, MARVIN [address] [place] [address] [email or web address]. [place] 12/09/2024 8:00 AM EDT Office Visit [facility] Cardiac Transplant 70 [place] [address] Cornelio Dunham MD 75 [facility] [place] [address] [email or web address] 12/09/2024 9:00 AM EDT Office Visit [facility] Cardiac Transplant 70 [place] [address] Unknown, Natalie, 01/27/2025 4:40 PM EST Office Visit [facility] Medical Specialties [address] [place] [address] [place] [address] Jose Hidalgo MD, MPH 75 [place] [address] [email or web address]@[email or web address] documented as [...] as of this encounter Care Teams Student Affairs Dean Relationship Specialty Start Date End Date Loly Brush MD 230 [place] [address] PCP - General 07/31/14 06/05/23 America Farmer NP [address] [place] [address] [email or web address] [employer] PCP - General Nurse Practitioner 06/06/23 07/28/24 Petty Almeida PA [address] [place] [address] PCP - General Physician Photovoltaic Installation Technician 07/29/24 Andrez Manrique MD [address] [place] [address] [place] [address] [email or web address] du Advanced Heart Failure and Transplant Cardiology 08/31/22 Andrez Kahn MD [address] [place] [address] Consulting Provider Cardiology 08/31/22 Luca Alfaro MD [address] [place] [address] Pediatric Cardiology 08/31/22 Andrez Osullivan MD [address] [place] [address] (work) [email or web address] Pediatric Cardiology 02/05/24 documented as of this encounter Additional Source Comments The information contained in this document represents components of the legal health record. It is not the complete legal health record.[facility]
--- OUTSIDE RECORDS SUMMARY | 2024-11-18 17:31 | XMS_ITS | Encounter Summary ---
Author Organization [facility] Address 399 [facility] [address] [place] [address] Phone Care Team Providers Care Table Top Tile Setter Name Role Phone Andrez Manrique MD Unavailable Andrez Kahn MD Unavailable Luca Alfaro MD Unavailable America Farmer LIFE INSURANCE UNDERWRITER Primary Care Provider Andrez Osullivan MD Unavailable [phone] Petty Almeida PA Primary Care Provide r Encounter Details Date Type Department Care Team (Late st Contact Info) Description 06/13/2023 Procedure Pass [facility] Cardio EP Device Monitoring 70 [place] [address] Social History Tobacco Use Types Packs/Day Years [...] Info) Description 11/28/2024 10:20 AM EDT Appointment [facility] Skeletal Health/Osteoporosis Ctr. and Bone Density Unit 221 [place] [address] Renetta Rosenbaum, SAMPLE DISPLAY PREPARER 75 [place] [address] [email or web address]. [place] 12/09/2024 8:00 AM EDT Office Visit [facility] Cardiac Transplant 70 [place] [address] Cornelio Dunham MD [address] [place] [address] [place] [address] [email or web address] 12/09/2024 9:00 AM EDT Office Visit [facility] Cardiac Transplant 70 [place] [address] Unknown, MD Natalie 01/27/2025 4:40 PM EST Office Visit [facility] Medical Specialties 45 [facility]2 [place] [address] Jose Hidalgo MD, MPH 75 [place] [address] [email or web address]@[email or web address] documented as of this encounter Visit [...] documented as of this encounter Care Teams Table Top Tile Setter Relationship Specialty Start Date End Date America Farmer NP 575 [place] [address] [email or web address] centerAlchip PCP - General Nurse Practitioner 06/06/23 07/28/24 Petty Almeida PA [address] [place] [address] PCP - General Physician Vinyl Hanger 07/29/24 Andrez Manrique MD [address] [place] [address] [place] [address] [email or web address]. du Advanced Heart Failure and Transplant Cardiology 08/31/22 Andrez Kahn MD [address] [place] [address] m[facility] [email or web address] Consulting Provider Cardiology 08/31/22 Luca Alfaro MD [address] [place] [address] [facility] Pediatric Cardiology 08/31/22 Andrez Osullivan MD [address] [place] [address] [email or web address] Pediatric Cardiology 02/05/24 documented as of this encounter Additional Source Comments The information contained in this document represents components of the legal health record. It is not the complete legal health record.[facility]
--- OUTSIDE RECORDS SUMMARY | 2024-11-18 17:31 | XMS_ITS | Encounter Summary ---
Author Organization [facility] Address 399 [facility] [address] [place] [address] Phone Care Team Providers Care Deposition Operator Name Role Phone Loly Brush MD Primary Care Provider [phone] Andrez Manrique MD Unavailable Andrez Kahn MD Unavailable Luca Alfaro MD Unavailable [phone] America Farmer NP Primary Care Provider Andrez Osullivan MD Unavailable [phone] Petty Almeida Primary Care Provide r Encounter Details Date Type Department Care Team (Late st Contact Info) Description 10/26/2022 Procedure Pass [facility] Cardio EP Device Monitoring 70 [place] [address] Social History Tobacco Use Types Packs/Day Years [...] Info) Description 11/28/2024 10:20 AM EDT Appointment [facility] Skeletal Health/Osteoporosis Ctr. and Bone Density Unit [address] [place] [address] Renetta Rosenbaum, TESTER OPERATOR 75 [place] [address] [email or web address] [place] 12/09/2024 8:00 AM EDT Office Visit [facility] Cardiac Transplant 70 [place] [address] Cornelio Dunham MD 75 [facility] [place] [address] [email or web address] 12/09/2024 9:00 AM EDT Office Visit [facility] Cardiac Transplant 70 [place] [address] Unknown, Natalie, 01/27/2025 4:40 PM EST Office Visit [facility] Medical Specialties 45 [facility]2 [place] [address] Jose Hidalgo MD, MPH 75 [place] [address] [email or web address] documented as of this encounter [...] documented as of this encounter Care Teams Deposition Operator Relationship Specialty Start Date End Date Loly Brush MD 230 [place] [address] PCP - General 07/31/14 06/05/23 America Farmer NP [address] [place] [address] [email or web address] [employer] PCP - General Nurse Practitioner 06/06/23 07/28/24 Petty Almeida PA [address] [place] [address] PCP - General Physician Cause Analyst 07/29/24 Andrez Manrique MD [address] [place] [address] [place] [address] [email or web address]. du Advanced Heart Failure and Transplant Cardiology 08/31/22 Andrez Kahn MD [address] [place] [address] [email or web address] Consulting Provider Cardiology 08/31/22 Luca Alfaro MD [address] [place] [address] Pediatric Cardiology 08/31/22 Andrez Osullivan MD [address] [place] [address] GINNY@[facility] Pediatric Cardiology 02/05/24 documented as of this encounter Additional Source Comments The information contained in this document represents components of the legal health record. It is not the complete legal health record.[facility]
--- OUTSIDE RECORDS SUMMARY | 2024-11-18 17:32 | XMS_ITS | Encounter Summary ---
Author Organization [facility] Address 399 [facility] [address] [place] [place] [address] Phone Care Team Providers Care Bog Worker Name Role Phone Andrez Manrique MD Unavailable Andrez Kahn MD Unavailable Luca Alfaro MD Unavailable [phone] America Farmer PERSONNEL TRAINING OFFICER Primary Care Provider Andrez Osullivan MD Unavailable [phone] Petty Almeida PA Primary Care Provide r Encounter Details Date Type Department Care Team (Late st Contact Info) Description 06/08/2023 Procedure Pass [facility] Echocardiography 70 [place] [address] Social History Tobacco Use Types Packs/Day Years [...] Health/Osteoporosis Ctr. and Bone Density Unit 221 [place] [address] Renetta Rosenbaum, PERSONAL CARE ATTENDANT 75 [place] [address] [email or web address]. [place] 12/09/2024 8:00 AM EDT Office Visit [facility] Cardiac Transplant 70 [place] [address] Cornelio Dunham MD [address] [place] [address] [place] [address] [email or web address] 12/09/2024 9:00 AM EDT Office Visit [facility] Cardiac Transplant 70 [place] [address] Natalie, Natalie, 01/27/2025 4:40 PM EST Office Visit [facility] Medical Specialties 45 [facility]2 [place] [address] Jose Hidalgo MD, MPH 75 [facility] [place] [address] [email or web address] documented as of this encounter Visit [...] documented as of this encounter Care Teams Bog Worker Relationship Specialty Start Date End Date America Farmer NP [address] [place] [address] [email or web address] centerFfrees Family Finance PCP - General Nurse Practitioner 06/06/23 07/28/24 Petty Almeida PA [address] [place] [address] PCP - General Physician Speech Communication Professor 07/29/24 Andrez Manrique MD [address] [place] [address] [place] [address] [email or web address]. du Advanced Heart Failure and Transplant Cardiology 08/31/22 Andrez Kahn MD [address] [place] [address] [email or web address] Consulting Provider Cardiology 08/31/22 Luca Alfaro MD [address] [place] [address] [email or web address] Pediatric Cardiology 08/31/22 Andrez Osullivan MD [address] [place] [address] [email or web address]@[email or web address] Pediatric Cardiology 02/05/24 documented as of this encounter Additional Source Comments The information contained in this document represents components of the legal health record. It is not the complete legal health record.[facility]
--- OUTSIDE RECORDS SUMMARY | 2024-11-18 17:32 | XMS_ITS | Encounter Summary ---
Author Organization [facility] Address 399 [facility] [address] [place] [address] Phone Care Team Providers Care Senior Director Creative Services Name Role Phone Andrez Manrique MD Unavailable [phone] Andrez Kahn MD Unavailable Luca Alfaro MD Unavailable [phone] America Farmer BAKERY CLERK Primary Care Provider Andrez Osullivan MD Unavailable [phone] Petty Almeida PA Primary Care Provide r Encounter Details Date Type Department Care Team (Late st Contact Info) Description 06/12/2023 Procedure Pass [facility] Cardiac Assistant Auto Center Manager [address] [place] [address] Social History Tobacco Use Types Packs/Day Years [...] and Bone Density Unit 221 [place] [address] Renetta Rosenbaum, CUSTOMER SOLUTIONS ARCHITECT 75 [place] [address] [email or web address]. [place] 12/09/2024 8:00 AM EDT Office Visit [facility] Cardiac Transplant 70 [place] [address] Cornelio Dunham MD [address] [place] [address] Cardiovascular [place] [address] [email or web address] 12/09/2024 9:00 AM EDT Office Visit [facility] Cardiac Transplant 70 [place] [address] Unknown, MD Natalie 01/27/2025 4:40 PM EST Office Visit [facility] Medical Specialties [address] [facility]2 [place] [address] Jose Hidalgo MD, MPH 75 [facility] [place] [address] [email or web address]@[email or web address] documented as of this encounter [...] as of this encounter Care Teams Senior Director Creative Services Relationship Specialty Start Date End Date America Farmer NP [address] [place] [address] [email or web address] PCP - General Nurse Practitioner 06/06/23 07/28/24 Petty Almeida PA [address] [place] [address] PCP - General Physician Dealer Compliance Representative 07/29/24 Andrez Manrique MD [address] [place] [address] [place] [address] summer@[email or web address]. du Advanced Heart Failure and Transplant Cardiology 08/31/22 Andrez Kahn MD [address] [place] [address] [email or web address] Consulting Provider Cardiology 08/31/22 Luca Alfaro MD [address] [place] [address] [facility] Pediatric Cardiology 08/31/22 Andrez Osullivan MD [address] [place] [address] [email or web address]@[email or web address] Pediatric Cardiology 02/05/24 documented as of this encounter Additional Source Comments The information contained in this document represents components of the legal health record. It is not the complete legal health record.[facility]
--- OUTSIDE RECORDS SUMMARY | 2024-11-18 17:32 | XMS_ITS | Patient Health Record ---
Author Organization [facility] Address [address] [place] [address] Care Team Providers Care Ticket Scheduler Name Role Phone Gonsalo ROSS, Loly Primary Care Provider Wyatt Earl [phone] Allergies Allergen (clinical drug ingredient) Drug/Non Drug Allergy documented on EMR Reaction Allergy Type Onset Date Status nitroglycerin Nitroglycerin Unknown Drug Allergy Active phenytoin Dilantin Unknown Drug Allergy Active Reason For Referral No Information Medications Medication SIG (Take, Route, Frequency, Duration) Notes Start Date End Date Status Digoxin Active Lisinopril Active Carvedilol Active Aspir-81 Active Lasix Active Problems Problem Type SNOMED Code ICD Code Onset Dates Problem Status W/U Status Risk Notes Problem Gallstones (574.20) Active confirmed Problem Right upper quadrant pain (809779876) Abdominal pain, right upper quadrant (789.01) Active confirmed Plan Of Treatment No Information Insurance Providers Payer Name Payer Address Payer Phone Subscriber Number Group Number Insured Name Patient Relationship to Insured Coverage Start Date Coverage End Date [facility] [address] [place] [address] [id number] SU PERAZA Self - patient is the insured Medical (General) History Medical History History ICD Code Denies [place],DM,renal disease CVA 1994--no residual HTN CHF--sees Dr. Osullivan in [place] Gallstone seen on the U/S in 02/2013--she has seen Dr. Philippe once for an initial evaluation of that Bronchiectasis as below--recent pulmonar y evaluation in [place] was OK EGD [place] [address] 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
--- OUTSIDE RECORDS SUMMARY | 2024-11-18 17:32 | XMS_ITS | Encounter Summary ---
Author Organization [facility] Address [address] [facility] [address] [place] [address] Phone Care Team Providers Care Casino Gaming Worker Name Role Phone Andrez Manrique MD Unavailable [phone] Andrez Kahn MD Unavailable Luca Alfaro MD Unavailable [phone] America Farmer APPELLATE CONFEREE Primary Care Provider Andrez Osullivan MD Unavailable [phone] Petty Almeida PA Primary Care Provide r Encounter Details Date Type Department Care Team (Late st Contact Info) Description 06/09/2023 Procedure Pass [facility] Cardiac Computer Aided Design Drafter [address] [place] [address] Social History Tobacco Use Types Packs/Day Years [...] Info) Description 11/28/2024 10:20 AM EDT Appointment [facility] Skeletal Health/Osteoporosis Ctr. and Bone Density Unit [address] [place] [address] Renetta Rosenbaum, OPERATIONS CONSULTANT [address] [place] [address] [email or web address] 12/09/2024 8:00 AM EDT Office Visit [facility] Cardiac Transplant [address] [place] [address] Cornelio Dunham MD [address] [place] [address] [place] [address] [email or web address] 12/09/2024 9:00 AM EDT Office Visit [facility] Cardiac Transplant [address] [place] [address] Unknown, MD Natalie 01/27/2025 4:40 PM EST Office Visit [facility] Medical Specialties 45 [facility]2-2 [place] [address] Jose Hidalgo MD, MPH 75 [facility] [place] [address] [email or web address] documented as of this [...] documented as of this encounter Care Teams Casino Gaming Worker Relationship Specialty Start Date End Date America Farmer NP [address] [place] [address] [email or web address] PCP - General Nurse Practitioner 06/06/23 07/28/24 Petty Almeida PA [address] [place] [address] PCP - General Physician Solar Installation Helper 07/29/24 Andrez Manrique MD [address] [place] [address] [place] [address] [email or web address]. du Advanced Heart Failure and Transplant Cardiology 08/31/22 Andrez Kahn MD [address] [place] [address] [email or web address] Consulting Provider Cardiology 08/31/22 Luca Alfaro MD [address] [place] [address] [email or web address] Pediatric Cardiology 08/31/22 Andrez Osullivan MD [address] [place] [address] [email or web address] Pediatric Cardiology 02/05/24 documented as of this encounter Additional Source Comments The information contained in this document represents components of the legal health record. It is not the complete legal health record.[facility]
--- OUTSIDE RECORDS SUMMARY | 2024-11-18 17:32 | XMS_ITS | Encounter Summary ---
Author Organization [facility] Address [address] [facility] [address] [place] [address] Phone Care Team Providers Care Historical Guide Name Role Phone Loly Brush MD Primary Care Provider [phone] Andrez Manrique MD Unavailable Andrez Kahn MD Unavailable [phone] Luca Alfaro MD Unavailable [phone] America Farmer NP Primary Care Provider Andrez Osullivan MD Unavailable [phone] Petty Almeida Primary Care Provide r Encounter Details Date Type Department Care Team (Late st Contact Info) Description 03/28/2023 Procedure Pass [facility] Cardio EP Device Monitoring 70 [place] [address] Social History Tobacco Use Types Packs/Day Years [...] 03/28/2023 3:34 PM Cinthia Griffin RN * [place] Suicide Severity Rating Scale (Screener/Recent Self-Report) Question Answer Date of Assessment Author 1. Wish to be (Past 1 Month) No 03/28/2023 3:34 PM Elio Maddox RN 2. Non-Specific Active Suicidal Thoughts (Past 1 Month) No 03/28/2023 3:34 PM Elio Maddox, MAX 6. Suicidal Behavior (Lifetime) No 03/28/2023 3:34 PM Elio Maddox RN documented as of this encounter Plan of Treatment Upcoming Encounters Date Type Department Care Team (Late st Contact Info) Description 11/28/2024 10:20 AM EDT Appointment [facility] Skeletal Health/Osteoporosis Ctr. and Bone Density Unit [address] [place] [address] Renetta Rosenbaum, MARVIN 75 [place] [address] [email or web address] 12/09/2024 8:00 AM EDT Office Visit [facility] Cardiac Transplant 70 [place] [address] Cornelio Dunham MD 75 [facility] [place] [address] [email or web address] 12/09/2024 9:00 AM EDT Office Visit [facility] Cardiac Transplant 70 [place] [address] Natalie Estrada MD 01/27/2025 4:40 PM EST Office Visit [facility] Specialties 45 [facility] ASB2-2 [place] [address] Jose Hidalgo MD, MPH 75 [facility] [address] [email or web address] documented as of this encounter Visit [...] documented as of this encounter Care Teams Historical Guide Relationship Specialty Start Date End Date Loly Brush MD [address] [place] [address] PCP - General 07/31/14 06/05/23 America Farmer NP [address] [place] [address] [email or web address] PCP - General Nurse Practitioner 06/06/23 07/28/24 Petty Almeida PA [address] [place] [address] PCP - General Physician Technology Auditor 07/29/24 Andrez Manrique MD [address] [place] [address] [place] [address] [email or web address]. du Advanced Heart Failure and Transplant Cardiology 08/31/22 Andrez Kahn MD [address] [place] [address] [email or web address] Consulting Provider Cardiology 08/31/22 Luca Alfaro MD [address] [place] [address] [email or web address] Pediatric Cardiology 08/31/22 Andrez Osullivan MD [address] [place] [address] [email or web address] Pediatric Cardiology 02/05/24 documented as of this encounter Additional Source Comments The information contained in this document represents components of the legal health record. It is not the complete legal health record.[facility]
--- OUTSIDE RECORDS SUMMARY | 2024-11-18 17:32 | XMS_ITS | Encounter Summary ---
Author Organization [facility] Address [address] [facility] [address] [place] [address] Phone Care Team Providers Care Tower Crane Operator Name Role Phone Andrez Manrique MD Unavailable Andrez Kahn MD Unavailable Luca Alfaro MD Unavailable [phone] America Farmer BUNGHOLE BORER Primary Care Provider Andrez Osullivan MD Unavailable [phone] Petty Almeida PA Primary Care Provide r Encounter Details Date Type Department Care Team (Late st Contact Info) Description 07/09/2023 Procedure Pass [facility] Women's Radiology 70 [place] [address] Social History Tobacco Use Types Packs/Day Years [...] Health/Osteoporosis Ctr. and Bone Density Unit 221 [place] [address] Renetta Rosenbaum, CHARGE ACCOUNT CLERK 75 [place] [address] [email or web address] 12/09/2024 8:00 AM EDT Office Visit [facility] Cardiac Transplant 70 [place] [address] Cornelio Dunham MD 75 [facility] [place] [address] [email or web address] 12/09/2024 9:00 AM EDT Office Visit [facility] Cardiac Transplant 70 [place] [address] Natalie, Natalie, 01/27/2025 4:40 PM EST Office Visit [facility] Medical Specialties 45 [facility]2-2 [place] [address] Jose Hidalgo MD, MPH 75 [facility] [place] [address] [email or web address] documented as of this encounter [...] documented as of this encounter Care Teams Tower Crane Operator Relationship Specialty Start Date End Date America Farmer NP 575 [place] [address] [email or web address] PCP - General Nurse Practitioner 06/06/23 07/28/24 Petty Almeida PA [address] [place] [address] PCP - General Physician Director Of Math 07/29/24 Andrez Manrique MD [address] [place] [address] [place] [address] [email or web address]. du Advanced Heart Failure and Transplant Cardiology 08/31/22 Andrez Kahn MD [address] [place] [address] [email or web address] Consulting Provider Cardiology 08/31/22 Luca Alfaro MD [address] [place] [address] [email or web address] Pediatric Cardiology 08/31/22 Andrez Osullivan MD [address] [place] [address] [email or web address] Pediatric Cardiology 02/05/24 documented as of this encounter Additional Source Comments The information contained in this document represents components of the legal health record. It is not the complete legal health record.[facility]
--- OUTSIDE RECORDS SUMMARY | 2024-11-18 17:32 | XMS_ITS | Encounter Summary ---
Author Organization [facility] Address [address] [facility] [address] [place] [address] Phone Care Team Providers Care Metal Wire Coating Operator Name Role Phone Andrez Manrique MD Unavailable Andrez Kahn MD Unavailable [phone] Luca Alfaro MD Unavailable [phone] America Farmer TELETYPESETTER OPERATOR Primary Care Provider Andrez Osullivan MD Unavailable [phone] Petty Almeida PA Primary Care Provide r Encounter Details Date Type Department Care Team (Late st Contact Info) Description 07/09/2023 Procedure Pass [facility] and Women's Radiology 70 [place] [address] Social History Tobacco Use Types Packs/Day Years [...] Info) Description 11/28/2024 10:20 AM EDT Appointment [facility] Skeletal Health/Osteoporosis Ctr. and Bone Density Unit [address] [place] [address] Renetta Rosenbaum, TRAFFIC REPORTER 75 [place] [address] [email or web address] 12/09/2024 8:00 AM EDT Office Visit [facility] Cardiac Transplant [address] [place] [address] Cornelio Dunham MD 75 [facility] [place] [address] [email or web address] 12/09/2024 9:00 AM EDT Office Visit [facility] Cardiac Transplant [address] [place] [address] Natalie, Natalie, 01/27/2025 4:40 PM EST Office Visit [facility] Medical Specialties 45 [facility]2 [place] [address] Jose Hidalgo MD, MPH 75 [facility] [place] [place] [address] [email or web address] documented as of this encounter Visit [...] documented as of this encounter Care Teams Metal Wire Coating Operator Relationship Specialty Start Date End Date America Farmer NP [address] [place] [address] [email or web address] PCP - General Nurse Practitioner 06/06/23 07/28/24 Petty Almeida PA [address] [place] [address] PCP - General Physician Gravity Meter Operator 07/29/24 Andrez Manrique MD [address] [place] [address] [place] [address] [email or web address]. du Advanced Heart Failure and Transplant Cardiology 08/31/22 Andrez Kahn MD [address] [place] [address] [email or web address] Consulting Provider Cardiology 08/31/22 Luca Alfaro MD [address] [place] [address] [email or web address] Pediatric Cardiology 08/31/22 Andrez Osullivan MD [address] [place] [address] [email or web address] Pediatric Cardiology 02/05/24 documented as of this encounter Additional Source Comments The information contained in this document represents components of the legal health record. It is not the complete legal health record.[facility]
== END 2024-11-18 16:08 | disposition home or self-care (01) ==
LOC: HO.HMCH 15:31
DX: I50.84 End stage heart failure (principal); F41.9 Anxiety disorder, unspecified; F32.A Depression, unspecified; N18.9 Chronic kidney disease, unspecified; R60.0 Localized edema

== ENCOUNTER → 2024-11-18 15:30 | Outpatient (BNVA) | payer OTHER, SELFPAY | DX: I50.84 End stage heart failure (principal); N18.9 Chronic kidney disease, unspecified; F32.A Depression, unspecified; F41.9 Anxiety disorder, unspecified; R60.0 Localized edema | CPT/HCPCS: 96127; 99212 ==